=== PATIENT | male | born 1975 | race Caucasian/White ===

== ENCOUNTER 2016-12-08 16:25 | Inpatient (IN) | payer OTHER ==
[2016-12-08 16:25] VITALS: BMI 22.4
--- NOTE | 2016-12-08 17:20 | ED PDOC ---
Arrival/HPI - General Chief Complaint: Abdominal Pain Time Seen by Provider: 12/08/16 16:27 Historian: Patient - History of Present Illness Narrative History of Present Illness (Text): 12/08/16 17:16 A 41 year old male, whose past medical history includes diabetes, hepatitis c, pancreatitis, appendectomy and cholecystectomy, presents to the emergency department complaining of right upper abdominal pain radiating to right side of chest for the past 3 days. Patient reports he has been seen in the ER multiple times for the same abdominal pain, however, has been radiating to right lower chest. Patient states his pain is exacerbated when eating and with certain movements.. He reports his abdominal pain began after his cholecystectomy and has not followed up with a GI specialist since. Patient notes nausea and non- bilious non-bloody vomiting but denies any fever, chills, diarrhea, urinary symptoms, shortness of breath, cough or any other complaints. PMD: Dr. Awad 12/08/16 21:40 Time/Duration: Other (3 days) Symptom Course: Unchanged Quality: Other Context: Other Past Medical History - Provider Review Nursing Documentation Reviewed: Yes - Infectious Disease Hx of Infectious Diseases: None - Tetanus Immunization Tetanus Immunization: Unknown - Cardiac Hx Hypertension: Yes - Pulmonary Hx Respiratory Disorders: No - Neurological Hx Neurological Disorder: No - HEENT Hx HEENT Disorder: No - Renal Hx Renal Disorder: No - Endocrine/Metabolic Hx Diabetes Mellitus Type 2: Yes - Hematological/Oncological Hx Blood Disorders: Yes Hx Hepatitis C: Yes - Integumentary Hx Dermatological Disorder: No - Musculoskeletal/Rheumatological Hx Musculoskeletal Disorders: No - Gastrointestinal Hx Gastrointestinal Disorders: Yes Hx Pancreatitis: Yes - Genitourinary/Gynecological Hx Genitourinary Disorders: No - Psychiatric Hx Psychophysiologic Disorder: No Hx Substance Use: No - Surgical History Hx Appendectomy: Yes Hx Cholecystectomy: Yes - Anesthesia Hx Anesthesia: Yes - Suicidal Assessment Feels Threatened In Home Enviroment: No Family/Social History - Physician Review Nursing Documentation Reviewed: Yes Family/Social History: CAD/NH Smoking Status: Current Some Days Smoker Hx Alcohol Use: No Hx Substance Use: No Hx Substance Use Treatment: No Allergies/Home Meds Allergies/Adverse Reactions: Allergies dy Allergy (Mild, Uncoded 12/08/16 16:30) ITCHING hair color dye Allergy (Uncoded 12/08/16 16:30) RASH Home Medications: Home Meds Medication Instructions Recorded Confirmed Gemfibrozil [Lopid] 600 mg PO BID 01/26/16 12/08/16 Insulin Aspart/Insulin Aspar 20 unit SC BID 12/08/16 12/08/16 [Novolog Mix 70/30 (70/30 units/ml)] Review of Systems - Review of Systems Constitutional: Fatigue. absent: Fevers Eyes: absent: Photophobia ENT: absent: Hearing Changes Respiratory: absent: SOB, Cough Cardiovascular: Chest Pain. absent: Palpitations, Calf Pain, ANGUIANO Gastrointestinal: Abdominal Pain (Right upper abdominal pain radiating to right side of chest), Nausea, Vomiting. absent: Diarrhea Genitourinary Male: absent: Dysuria, Frequency, Hematuria, Urinary Output Changes Musculoskeletal: absent: Back Pain Skin: absent: Rash Neurological: absent: Headache, Dizziness, Focal Weakness Psychiatric: absent: Anxiety, Depression Physical Exam - Physical Exam Narrative Physical Exam (Text): Head: Atraumatic. Normocephalic. Eyes: PERRL. EOMI. Conjunctivae are not pale. ENT: Mucous membranes are dry. Oropharynx is clear and symmetric. Neck: Supple. Full ROM. No JVD. No lymphadenopathy. Cardiovascular: Bradycardic. No murmurs, rubs, or gallops. Distal pulses are 2+ and symmetric. Pulmonary/Chest: No evidence of respiratory distress. Clear to auscultation bilaterally. No wheezing, rales or rhonchi. Palpable anterior chest wall pain. Abdominal: Soft and non-distended. Right upper quadrant tenderness and epigastric pain to palpation. Multiple surgical scars noted. No rebound, guarding, or rigidity. No organomegaly. Good bowel sounds. No pulsatile masses. Back: No CVA tenderness. Palpable mid back pain with no erythema or edema. Extremities: No edema. No cyanosis. No clubbing. Full range of motion in all extremities. No calf tenderness. Skin: Skin is warm and dry. No petechiae. No purpura. Neurological: Alert, awake, and oriented to person, place, time, and situation. Normal speech. Motor and sensory exam intact. Psychiatric: Good eye contact. Normal interaction, affect, and behavior. Vital Signs Reviewed: Yes Vital Signs Temp Pulse Resp BP Pulse Ox 12/08/16 19:10 62 18 138/71 98 12/08/16 17:36 64 18 144/79 98 12/08/16 16:50 97.7 F 68 18 146/82 98 12/08/16 16:33 97.7 F 68 20 146/82 98 Temperature: Afebrile Blood Pressure: Normal Pulse: Bradycardic Respiratory Rate: Normal Appearance: Positive for: Well-Appearing, Non-Toxic, Uncomfortable Pain Distress: Moderate Mental Status: Positive for: Alert and Oriented X 3 Medical Decision Making ED Course and Treatment: 12/08/16 17:16 Impression: A 41 year old male with right upper abdominal pain radiating to right side of chest. Patient notes nausea and non-bilious non-bloody vomiting. RUQ tenderness on exam. There is chest wall tenderness as well which I feel is related to his pain with deep breaths. No hypoxia, no calf pain. Differential Diagnosis included but are not limited to: Acute pancreatitis, muscular chest and back pain Plan: -- Abdomen and Pelvis CT -- Chest xray -- EKG -- Labs -- Urinalysis -- Pepcid, IV fluids, Morphine and Zofran -- Reassess and disposition Prior Visits: Notes and results from previous visits were reviewed. Patient last seen and discharged from ED on 10/26/16 for abdominal pain. Progress Notes: Patient with history of intermittent pain "since gallbladder surgery". He has not had follow-up with GI or his surgeon over past 3 months. Prior records reviewed. As pain persistent, iv pain medication and zofran ordered as well as CT. He reports possible allergy to iv dye. Although he is diabetic, his has no chest pain or sob with exertion. Bradycardia noted but has has prior history of this and no symptomatic hypotension noted. NO melena or gi bleeding noted. Report Date : 12/08/2016 18:45:37 PROCEDURE: CT Abdomen and Pelvis without intravenous contrast Dictator : HAILEY PIERSON MD IMPRESSION: 1. Findings are consistent with acute pancreatitis predominantly involving the head of the pancreas. 2.8 x 2.8 cm cystic lesion in the body of the pancreas is most compatible with a pseudocyst. The tail of the pancreas is atrophic. 2. Mild hepatosplenomegaly and extensive gastric, perisplenic and splenorenal varices. Findings could be related to portal/splenic vein thrombosis. CT scan of the abdomen with intravenous contrast (portal venous phase)/duplex Doppler ultrasound would be helpful for further evaluation. 3. 4 mm nonobstructing stone in the upper pole of the left kidney. Report Date : 12/08/2016 18:53:14 Procedure: Chest xray Dictator : Teresa Hernandez MD IMPRESSION: No focal consolidation, significant pleural effusion, or definite pneumothorax identified. 12/08/16 20:22 On re-evaluation, patient continues to complain of persistent pain in episgastric region and nausea. Additional pain medication and antiemetics orered. Plan is to admit for acute pancreatitis as per CT findings. Case discussed with house doctor, who accepts admission. He has had prior EKGs reviewed which revealed history of bradycardia in past. No chest pain or shortness of breath with exertion. Hyperglycemia noted, iv fluids given. Current exam not consistent with DKA. - Lab Interpretations Lab Results: 12/08/16 18:01 12/08/16 18:55 Lab Results 12/08/16 18:55: Sodium 132, Potassium 4.2, Chloride 100, Carbon Dioxide 25, Anion Gap 11, BUN 9, Creatinine 0.6, Est GFR ( Amer) > 60, Est GFR (Non- Af Amer) > 60, Random Glucose 292 H, Calcium 8.5, Magnesium 1.8, Total Bilirubin 1.1, AST 26, ALT 24, Alkaline Phosphatase 69, Lactate Dehydrogenase 625, Total Creatine Kinase 165, Troponin I < 0.01, Total Protein 7.6, Albumin 3.6, Globulin 3.9, Albumin/Globulin Ratio 0.9 L, Amylase 55, Lipase 122 12/08/16 18:01: WBC 8.5 D, RBC 5.49, Hgb 14.8, Hct 40.7 L, MCV 74.1 L, MCH 27.0 , MCHC 36.4, RDW 15.6 H, Plt Count 181, MPV 10.8, Gran % 72.2 H, Lymph % (Auto) 20.7 L, [place] % (Auto) 6.0, Eos % (Auto) 0.6 L, Baso % (Auto) 0.5, Gran # 6.17, Lymph # 1.8, [place] # 0.5, Eos # 0.1, Baso # 0.04, PT 11.0, INR 1.02, APTT 30.1, Urine Color Straw, Urine Appearance Clear, Urine pH 6.0, Ur Specific [place] <= 1.005, Urine Protein Negative, Urine Glucose (UA) >=1000, Urine Ketones Negative , Urine Blood Negative, Urine Nitrate Negative, Urine Bilirubin Negative, Urine Urobilinogen 0.2, Ur Leukocyte Esterase Negative - RAD Interpretation Narrative RAD Interpretations (Text): 12/08/16 21:34 cxr no pneumothorax or infiltrate noted Radiology Orders: 12/08/16 17:23 CHEST ONE VIEW [RAD] Stat 12/08/16 17:25 ABD & PELVIS W/O PO OR IV CONT [CT] Stat Tentering Machine Feeder: ED Physician - EKG Interpretation EKG Interpretation (Text): 12/08/16 21:33 EKG at 17:30 sinus bradycardia rate of [address] elevations Interpreted by ED Physician: Yes Type: 12 lead EKG - Medication Orders Current Medication Orders: Discontinued Medications Famotidine (Pepcid) 20 mg IVP STAT STA Stop: 12/08/16 17:27 Last Admin: 12/08/16 18:03 Dose: 20 MG IVP Administration Document 12/08/16 18:03 OCS (Rec: 12/08/16 18:03 [id number]) Charges for Administration # of IVP Administrations 1 Sodium Chloride (Sodium Chloride 0.9%) 1,000 mls @ 1,000 mls/hr IV .Q1H STA Stop: 12/08/16 18:25 Last Admin: 12/08/16 18:03 Dose: 1,000 MLS/HR eMAR Start Stop Document 12/08/16 18:03 OCS (Rec: 12/08/16 18:03 [id number]) Intravenous Solution Start Date 12/08/16 Start Time 18:03 Morphine Sulfate (Morphine) 2 mg IVP STAT STA Stop: 12/08/16 19:06 Last Admin: 12/08/16 19:44 Dose: 2 MG MAR Pain Assessment Document 12/08/16 19:44 OCS (Rec: 12/08/16 19:45 [id number]) Pain Reassessment Is this a pain reassessment? Yes Sleep Is patient sleeping during reassessment? No Presence of Pain Presence of Pain Yes Pain Scale Used Pain Scale Used Numeric Location Left, Right or Bilateral Right Upper or Lower Upper Pain Location Body Site Abdomen Description Description Constant Intensity of Pain at present 10 Pain Behavior Rubbing Site Aggravating Factors ADL's IVP Administration Document 12/08/16 19:44 OCS (Rec: 12/08/16 19:45 OCS [id number]) Charges for Administration # of IVP Administrations 1 Ondansetron HCl (Zofran Inj) 4 mg IVP ONCE ONE Stop: 12/08/16 17:27 Last Admin: 12/08/16 18:04 Dose: 4 MG IVP Administration Document 12/08/16 18:04 OCS (Rec: 12/08/16 18:04 OCS [id number]) Charges for Administration # of IVP Administrations 1 Ondansetron HCl (Zofran Inj) 4 mg IVP ONCE ONE Stop: 12/08/16 20:23 Last Admin: 12/08/16 20:31 Dose: 4 MG IVP Administration Document 12/08/16 20:31 OCS (Rec: 12/08/16 20:32 OCS [id number]) Charges for Administration # of IVP Administrations 1 - Scribe Statement The provider has reviewed the documentation as recorded by the Jeny Martinez Provider Scribe Attestation: All medical record entries made by the Scribe were at my direction and personally dictated by me. I have reviewed the chart and agree that the record accurately reflects my personal performance of the history, physical exam, medical decision making, and the department course for this patient. I have also personally directed, reviewed, and agree with the discharge instructions and disposition. Disposition/Present on Arrival - Present on Arrival Any Indicators Present on Arrival: No History of DVT/PE: No History of Uncontrolled Diabetes: Yes Urinary Catheter: No History of Decub. Ulcer: No History Surgical Site Infection Following: None - Disposition Have Diagnosis and Disposition been Completed?: Yes Diagnosis: Pancreatitis, Abdominal pain, Hyperglycemia Disposition: HOSPITALIZED Disposition Time: 20:22 Patient Plan: Admission Patient Problems: Current Active Problems Problem Status Diagnosed ACS (acute coronary syndrome) Acute Abdominal pain Acute Anemia Acute Chest pain Acute Hyperglycemia Acute Pancreatitis Acute Thrombocytopenia Acute Condition: FAIR
[2016-12-08] MEDS ORDERED: Sodium Chloride 0.9% 1,000 ML IV STA (17:26)
[2016-12-08 18:02] LABS: ADD MANUAL DIFF? NO
[2016-12-08 18:16] LABS: BASO # 0.04 [, K/mm3] (0.0-2.0); BASO % 0.5 % (0.0-3.0); EOS # 0.1 (0.0-0.7); EOS % 0.6 % (1.5-5.0); GRAN # 6.17 (1.4-6.5); GRAN % 72.2 % (50.0-68.0); HEMATOCRIT 40.7 % (42.0-52.0); LYMPH # 1.8 (1.2-3.4); LYMPH % 20.7 % (22.0-35.0); MEAN CELL VOLUME 74.1 fL (80.0-105.0); MEAN CORPUSCULAR HGB CONC 36.4 g/dl (31.0-37.0); MEAN PLATELET VOLUME 10.8 fl (7.0-11.0); MONO # 0.5 (0.1-0.6); PLATELET COUNT 181 [, 10^3/uL] (120.0-450.0); RED CELL DISTRIBUTION WIDTH 15.6 % (11.5-14.5); WHITE BLOOD COUNT 8.5 [, 10^3/ul] (4.5-11.0)
[2016-12-08 18:23] LABS: INR 1.02 (0.93-1.08); PARTIAL THROMBOPLASTIN TIME 30.1 Seconds (23.7-30.8)
[2016-12-08 18:25] LABS: URINE APPEARANCE CLEAR (CLEAR); URINE BILIRUBIN NEGATIVE (NEGATIVE); URINE BLOOD NEGATIVE (NEGATIVE); URINE COLOR STRAW (YELLOW); URINE GLUCOSE (UA) >=1000 mg/dL (NEGATIVE); URINE KETONE NEGATIVE (NEGATIVE); URINE LEUKOCYTE ESTERASE NEGATIVE Leu/uL (NEGATIVE); URINE PROTEIN NEGATIVE mg/dL (<30 mg/dL); URINE UROBILINOGEN 0.2 E.U./dL (<1 E.U./dL)
--- NOTE | 2016-12-08 18:47 | CT ---
PROCEDURE: CT Abdomen and Pelvis without intravenous contrast HISTORY: diffuse upper abdominal pain, post op, dye allergy COMPARISON: None. TECHNIQUE: Multidetector CT scan of the abdomen and pelvis was performed without administration of intravenous contrast. Oral contrast was not administered. Coronal and sagittal reformatted images were obtained. Radiation dose: Total exam DLP = 564.05 mGy-cm. FINDINGS: LOWER THORAX: The visualized right lung is clear. There is left basilar atelectasis. LIVER: There is mild hepatomegaly. There is no intrahepatic biliary ductal dilatation GALLBLADDER AND BILE DUCTS: The gallbladder is surgically absent. PANCREAS: There is enlargement of the head of the pancreas and peripancreatic inflammatory changes with fat stranding. There is also inflammatory fat stranding extending into the superior retroperitoneum. There is a 2.8 x 2.8 cm low-attenuation lesion in the body of the pancreas. The tail of the pancreas is not well visualized. SPLEEN: The spleen is enlarged and measures 14 cm. ADRENALS: Both adrenal glands are normal in size. There is no discrete nodule. KIDNEYS AND URETERS: Both kidneys are normal in size without hydronephrosis. There is a 4 mm nonobstructing stone in the upper pole of the left kidney. There is no right nephrolithiasis. VASCULATURE: The aorta is normal in caliber. There are extensive gastric, perisplenic and splenorenal varices. BOWEL: The small bowel loops are normal in caliber. There is moderate amount of stool scattered throughout the colon. APPENDIX: Not distinctly identified. No inflammatory changes in the right lower quadrant. PERITONEUM: No free fluid. No free air. LYMPH NODES: No enlarged lymph nodes. BLADDER: Unremarkable. REPRODUCTIVE: Unremarkable. BONES: There is moderate degenerative disc disease at L4-5 and L5-S1. No destructive bony lesions. Focal areas of sclerosis in the right proximal femur are statistically most compatible with bone islands P OTHER FINDINGS: None. IMPRESSION: 1. Findings are consistent with acute pancreatitis predominantly involving the head of the pancreas. 2.8 x 2.8 cm cystic lesion in the body of the pancreas is most compatible with a pseudocyst. The tail of the pancreas is atrophic. 2. Mild hepatosplenomegaly and extensive gastric, perisplenic and splenorenal varices. Findings could be related to portal/splenic vein thrombosis. CT scan of the abdomen with intravenous contrast (portal venous phase)/duplex Doppler ultrasound would be helpful for further evaluation. 3. 4 mm nonobstructing stone in the upper pole of the left kidney.
--- NOTE | 2016-12-08 18:54 | RAD ---
HISTORY: chest pain COMPARISON: Chest x-ray performed 10/28/15 TECHNIQUE: Chest, one view. FINDINGS: LUNGS: No focal consolidation. Please note that chest x-ray has limited sensitivity for the detection of pulmonary masses. PLEURA: No significant pleural effusion identified. No definite pneumothorax . CARDIOVASCULAR: Heart size appears within normal limits. OSSEOUS STRUCTURES: No acute osseous abnormality identified. VISUALIZED UPPER ABDOMEN: Unremarkable. OTHER FINDINGS: None. IMPRESSION: No focal consolidation, significant pleural effusion, or definite pneumothorax identified.
[2016-12-08] MEDS ORDERED: Morphine 2 mg/ml ISec IVP STA (19:05)
[2016-12-08 19:15] LABS: ALB/GLOB RATIO 0.9 (1.1-1.8); ALKALINE PHOSPHATASE 69 U/L (38-133); ALT/SGPT 24 U/L (7-56); AMYLASE 55 U/L (35-125); AST/SGOT 26 U/L (15-59); BILIRUBIN,TOTAL 1.1 mg/dL (0.2-1.3); BLOOD UREA NITROGEN 9 mg/dL (7-21); CALCIUM 8.5 mg/dL (8.4-10.5); CARBON DIOXIDE 25 mmol/L (21-33); CHLORIDE 100 mmol/L (98-107); GFR AFRICAN-AMERICAN > 60; LIPASE 122 U/L (23-300); MAGNESIUM 1.8 mg/dL (1.7-2.2); POTASSIUM 4.2 mmol/L (3.6-5.0); SODIUM 132 mmol/L (132-148); TOTAL PROTEIN 7.6 g/dL (5.8-8.3)
[2016-12-08 19:17] LABS: GLUCOSE,RANDOM 292 mg/dL (70-110)
[2016-12-08 19:27] LABS: TROPONIN I < 0.01 ng/mL
--- NOTE | 2016-12-08 20:21 | CP.PCM.HP ---
<Mildred Carlton - Last Filed: 12/08/16 22:48> History of Present Illness - History of Present Illness History of Present Illness: PGY-[address] Guzman Admission: RUQ abdominal pain, Acute pancreatitis 40 year old man of [place] origin, whose PMH includes Dm2, hepatitis c, pancreatitis, appendectomy and cholecystectomy, presents to the emergency department complaining of right upper abdominal pain radiating to right side of chest for the past 3 days. Patient reports he has been seen in the ER multiple times for the same abdominal pain, however, has not felt this chest pain before. Patient states his pain is sharp, worsened during inhalation. Abdominal pain is chronic, began after his cholecystectomy and has not followed up with a GI specialist since. In the ED, VSS. Microcytic anemia at 14.8. WBC 8.5. Glucose 292. LFT, lypase, amylase all normal. U/A negative. He received Pepcid, morphine, zofran were given. CXR showed negative for focal consolidation, significant pleural effusion, or definite pneumothorax. CT abdomen and pelvis showed (1) Acute pancreatitis predominantly involving the head of the pancreas. 2.8 x 2.8 cm cystic lesion in the body of the pancreas is most compatible with a pseudocyst. The tail of the pancreas is atrophic. (2) Mild hepatosplenomegaly and extensive gastric, perisplenic and splenorenal varices. Findings could be related to portal/splenic vein thrombosis. CT scan of the abdomen with intravenous contrast (portal venous phase)/duplex Doppler ultrasound would be helpful for further evaluation. (3) 4 mm nonobstructing stone in the upper pole of the left kidney. ROS - Patient notes nausea and non-bilious non-bloody vomiting but denies any fever, chills, diarrhea, shortness of breath, cough. (+) constipation with blood streaks on tissue when wipe. (+) numbness in distal UE/LE b/l. (+) buring during urination PMH: [facility], s/p open jas. Then contracted hep C. Later developed DM. In 2013 first diagnosed with diabetes. Pancreatitis.-Had been admitted 60-70 times for pancratitis in past 9 years. DM 2 Hepatitis C. Pancreatic cyst-Diagnosed in 2013. PUD PSH: Surgery for pancreatic cyst s/p burst cyst during EGD procedure - 2015, [facility] Appendectomy for ruptured appendix -2008, [place] Cholecystectomy FH: CAD/NV before age 55 - dad and several male relatives Mom - bone cancer SH: Current Smoking- Attempted to Quit in December of 2014.Smoked 10 Cig./day for 2 years. Denies ETOH. Denies drugs. Lives in an apartment in [place] with mother is single has no children. Worked in [employer]. Currently does not work. All Dye Meds: MAR PMD = Dr. Awad Surgeon = Dr. Herbert Jimenez, [facility], . Present on Admission - Present on Admission Any Indicators Present on Admission: Yes History of Uncontrolled Diabetes: Yes Past Patient History - Infectious Disease Hx of Infectious Diseases: None - Tetanus Immunizations Tetanus Immunization: Unknown - Past Medical History & Family History Past Medical History?: Yes - Past Social History Smoking Status: Current Some Days Smoker - CARDIAC Hx Hypertension: Yes - PULMONARY Hx Respiratory Disorders: No - NEUROLOGICAL Hx Neurological Disorder: No - HEENT Hx HEENT Problems: No - RENAL Hx Chronic Kidney Disease: No - ENDOCRINE/METABOLIC Hx Diabetes Mellitus Type 2: Yes - HEMATOLOGICAL/ONCOLOGICAL Hx Blood Disorders: Yes Hx Hepatitis C: Yes - INTEGUMENTARY Hx Dermatological Problems: No - MUSCULOSKELETAL/RHEUMATOLOGICAL Hx Musculoskeletal Disorders: No - GASTROINTESTINAL Hx Gastrointestinal Disorders: Yes Hx Pancreatitis: Yes - GENITOURINARY/GYNECOLOGICAL Hx Genitourinary Disorders: No - PSYCHIATRIC Hx Psychophysiologic Disorder: No Hx Substance Use: No - SURGICAL HISTORY Hx Appendectomy: Yes Hx Cholecystectomy: Yes - ANESTHESIA Hx Anesthesia: Yes Meds Allergies/Adverse Reactions: Allergies Allergy/AdvReac Type Severity Reaction Status Date / Time dy Allergy Mild ITCHING Uncoded 12/08/16 16:30 hair color dye Allergy RASH Uncoded 12/08/16 16:30 Physical Exam - Constitutional Appears: No Acute Distress - Head Exam Head Exam: ATRAUMATIC, NORMOCEPHALIC - Eye Exam Eye Exam: EOMI, Normal appearance. absent: Scleral icterus Pupil Exam: NORMAL ACCOMODATION - ENT Exam ENT Exam: Mucous Membranes Moist - Neck Exam Neck exam: Positive for: Normal Inspection. Negative for: Lymphadenopathy, Meningismus Additional comments: supple, no JVD - Respiratory Exam Respiratory Exam: Decreased Breath Sounds (RLL), Clear to Auscultation Bilateral , Rales (RLL), NORMAL BREATHING PATTERN. absent: Rhonchi, Wheezes - Cardiovascular Exam Cardiovascular Exam: REGULAR RHYTHM, +S1, +S2. absent: Systolic Murmur - GI/Abdominal Exam GI & Abdominal Exam: Guarding (On deep palpation), Normal Bowel Sounds, Soft, Tenderness (RUQ, chronic; RLQ. ). absent: Distended, Rigid Additional comments: 3 scars healing well - Extremities Exam Extremities exam: Positive for: normal capillary refill, pedal pulses present. Negative for: calf tenderness, pedal edema - Back Exam Back exam: absent: CVA tenderness (L), CVA tenderness (R) - Neurological Exam Neurological exam: Alert, Oriented x3 - Psychiatric Exam Psychiatric exam: Normal Affect, Normal Mood - Skin Skin Exam: Dry, Warm Results - Vital Signs Recent Vital Signs: Last Vital Signs Temp 97.7 F 12/08/16 16:50 Pulse 62 12/08/16 19:10 Resp 18 12/08/16 19:10 BP 138/71 12/08/16 19:10 Pulse Ox 98 12/08/16 19:10 - Labs Result Diagrams: 12/08/16 18:01 12/08/16 18:55 Labs: Laboratory Results - last 24 hr 12/08/16 12/08/16 18:01 18:55 WBC 8.5 D RBC 5.49 Hgb 14.8 Hct 40.7 L MCV 74.1 L MCH 27.0 MCHC 36.4 RDW 15.6 H Plt Count 181 MPV 10.8 Gran % 72.2 H Lymph % (Auto) 20.7 L [place] % (Auto) 6.0 Eos % (Auto) 0.6 L Baso % (Auto) 0.5 Gran # 6.17 Lymph # 1.8 [place] # 0.5 Eos # 0.1 Baso # 0.04 PT 11.0 INR 1.02 APTT 30.1 Sodium 132 Potassium 4.2 Chloride 100 Carbon Dioxide 25 Anion Gap 11 BUN 9 Creatinine 0.6 Est GFR ( Amer) > 60 Est GFR (Non-Af Amer) > 60 Random Glucose 292 H Calcium 8.5 Magnesium 1.8 Total Bilirubin 1.1 AST 26 ALT 24 Alkaline Phosphatase 69 Lactate Dehydrogenase 625 Total Creatine Kinase 165 Troponin I < 0.01 Total Protein 7.6 Albumin 3.6 Globulin 3.9 Albumin/Globulin Ratio 0.9 L Amylase 55 Lipase 122 Urine Color Straw Urine Appearance Clear Urine pH 6.0 Ur Specific [place] <= 1.005 Urine Protein Negative Urine Glucose (UA) >=1000 Urine Ketones Negative Urine Blood Negative Urine Nitrate Negative Urine Bilirubin Negative Urine Urobilinogen 0.2 Ur Leukocyte Esterase Negative Assessment & Plan - Assessment and Plan (Free Text) Plan: 40 year old man of [place] origin, whose Family history of NV before age 55, whose PMH includes Dm2, hepatitis c, pancreatitis, appendectomy and cholecystectomy, admitted for retractable N/V, RUQ abdominal pain with dyspneic chest pain on R, and acute pancreatitis Atpical chest pain Bradycardia - resolved - likely from diaphragm irritation from acute pancreatitis - EKG showed bradycardia at 47, no specific ST changes or TWI. 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 Microcytic anemia - stable - varices on CT - occult blood Diabetes IDDM-2 Diabeteic neuropathy - A1C - ISSS - home Novolog 70/30 BID Constipation - miralax bid Prophylaxis - Lovenox, protonix S/R/D/w Dr. Guzman - Date & Time Date: 12/08/16 Time: 21:20 <Josey Guzman - Last Filed: 12/09/16 00:21> Results - Vital Signs Recent Vital Signs: Last Vital Signs Temp 97.7 F 12/08/16 16:50 Pulse 62 12/08/16 19:10 Resp 18 12/08/16 19:10 BP 138/71 12/08/16 19:10 Pulse Ox 98 12/08/16 19:10 - Labs Result Diagrams: 12/08/16 18:01 12/08/16 18:55 Attending/Attestation - Attestation I have personally seen and examined this patient.: Yes I have fully participated in the care of the patient.: Yes I have reviewed all pertinent clinical information: Yes Notes (Text): 12/09/16 00:20 Patient was seen when patient was in bed # [address]Katherine Carlton. Agree with history , physical examination, assessment and plan.
[2016-12-08] MEDS ORDERED: Sodium Chloride 0.9% 1,000 ML IV SCH (22:45)
[2016-12-08] MEDS ORDERED: POLYETHYLENE GLYCOL 3350 17 GM/Dose PACKET PO STA (22:47)
[2016-12-08] MEDS: Insulin Human NPH/Reg 70/30 Vial(3 ml) SC SCH (22:51)
[2016-12-09] MEDS: Morphine 2 mg/ml ISec IVP PRN ×5 (00:05→23:40)
[2016-12-09 00:50] LABS: TROPONIN I < 0.01 ng/mL
[2016-12-09] MEDS: Sodium Chloride 0.9% 1,000 ML IV SCH ×3 (03:30→22:47)
[2016-12-09] MEDS: Insulin Lispro (humaLOG) MEDIUM Coverage SC SCH ×4 (08:23→22:27)
[2016-12-09] MEDS: Amylase/Lipase/Protease 5,000 U ECC PO SCH ×4 (08:25→16:44)
[2016-12-09 09:07] LABS: ADD MANUAL DIFF? NO
--- NOTE | 2016-12-09 09:08 | US ---
PROCEDURE: Portal vein duplex ultrasound. CLINICAL HISTORY: Abnormal liver function tests Evaluate for portal vein thrombosis. PHYSICIAN(S): Corbin Oates M.D. FINDINGS: The extrahepatic portal vein is patent with hepatopetal flow. No sonographic evidence for thrombus or obstruction is seen. The 3 hepatic veins are visualized centrally and patent. The hepatic artery is patent. The hepatic parenchyma is homogeneous in echotexture. The spleen is normal in size. No ascites is appreciated in the upper abdomen. IMPRESSION: 1. Patent portal vein with hepatopetal flow.
[2016-12-09 09:25] LABS: BASO # 0.03 [, K/mm3] (0.0-2.0); BASO % 0.4 % (0.0-3.0); EOS # 0.1 (0.0-0.7); GRAN # 4.61 (1.4-6.5); GRAN % 66.6 % (50.0-68.0); HEMATOCRIT 36.6 % (42.0-52.0); LYMPH # 1.9 (1.2-3.4); LYMPH % 26.8 % (22.0-35.0); MEAN CELL VOLUME 74.5 fL (80.0-105.0); MEAN CORPUSCULAR HEMOGLOBIN 25.9 pg (25.0-35.0); MEAN CORPUSCULAR HGB CONC 34.7 g/dl (31.0-37.0); MEAN PLATELET VOLUME 10.9 fl (7.0-11.0); MONO # 0.4 (0.1-0.6); MONO % 5.2 % (1.0-6.0); PLATELET COUNT 139 [, 10^3/uL] (120.0-450.0); RED CELL DISTRIBUTION WIDTH 15.8 % (11.5-14.5); WHITE BLOOD COUNT 6.9 [, 10^3/ul] (4.5-11.0)
[2016-12-09 09:34] LABS: ALKALINE PHOSPHATASE 70 U/L (38-133); ALT/SGPT 25 U/L (7-56); AMYLASE 51 U/L (35-125); AST/SGOT 20 U/L (15-59); BILIRUBIN,TOTAL 0.9 mg/dL (0.2-1.3); BLOOD UREA NITROGEN 9 mg/dL (7-21); CALCIUM 8.4 mg/dL (8.4-10.5); CARBON DIOXIDE 24 mmol/L (21-33); CHLORIDE 101 mmol/L (98-107); CHOLESTEROL 215 mg/dL (130-200); GFR AFRICAN-AMERICAN > 60; GLUCOSE,RANDOM 220 mg/dL (70-110); LIPASE 77 U/L (23-300); POTASSIUM 3.7 mmol/L (3.6-5.0); SODIUM 134 mmol/L (132-148); TOTAL PROTEIN 7.1 g/dL (5.8-8.3)
[2016-12-09 09:46] LABS: TROPONIN I < 0.01 ng/mL
[2016-12-09] MEDS: Insulin Human NPH/Reg 70/30 Vial(3 ml) SC SCH ×2 (11:03→18:56)
--- NOTE | 2016-12-09 12:52 | CP.PCM.CON ---
History of Present Illness - History of Present Illness History of Present Illness: CC: Abdominal pain HPI: 40 year old man with h/o DM, HCV, Chronic pancreatitis who presents with abdominal pain. He reports this exacerbation of pain started about 3 days ago. He reports constant severe upper abdominal pain radiating to RUQ and LUQ, which is similar to prior episodes of pain related to pancreatitis. He says he had a few episodes of associated nausea and vomiting. he denies alcohol abuse. He does smoke a few cigarettes a day. He reports recent h/o cholecystectomy and EUS /FNA of pancreas cyst at [facility] 5-6 months ago. he was told cyst is benign. Pain is sharp in quality. No rectal bleeding. No chest pain or sob. No fever. He does note constipation. PMHx: DM, HCV, Chronic pancreatitis, Pseudocyst, H/o PUD PSHx: Appendectomy, Cholecystectomy, EUS FNA of Pancreas cyst FHx: No family history of pancreatitis/malignancy SHx: Current Smoker. Denies ETOH or drugs. ROS: A comprehensive review of systems was performed and was negative apart from HPI Past Patient History - Infectious Disease Hx of Infectious Diseases: None - Tetanus Immunizations Tetanus Immunization: Unknown - Past Medical History & Family History Past Medical History?: Yes - Past Social History Smoking Status: Light Smoker < 10 Cigarettes Daily - CARDIAC Hx Cardiac Disorders: Yes Hx Hypertension: Yes - PULMONARY Hx Respiratory Disorders: No - NEUROLOGICAL Hx Neurological Disorder: No - HEENT Hx HEENT Problems: No - RENAL Hx Chronic Kidney Disease: No - ENDOCRINE/METABOLIC Hx Endocrine Disorders: Yes Hx Diabetes Mellitus Type 2: Yes - HEMATOLOGICAL/ONCOLOGICAL Hx Blood Disorders: Yes Hx Hepatitis C: Yes - INTEGUMENTARY Hx Dermatological Problems: No - MUSCULOSKELETAL/RHEUMATOLOGICAL Hx Falls: No - GASTROINTESTINAL Hx Gastrointestinal Disorders: Yes Hx Pancreatitis: Yes - GENITOURINARY/GYNECOLOGICAL Hx Genitourinary Disorders: No - PSYCHIATRIC Hx Substance Use: No - SURGICAL HISTORY Hx Appendectomy: Yes Hx Cholecystectomy: Yes - ANESTHESIA Hx Anesthesia: Yes Meds Allergies/Adverse Reactions: Allergies Allergy/AdvReac Type Severity Reaction Status Date / Time dy Allergy Mild ITCHING Uncoded 12/08/16 16:30 hair color dye Allergy RASH Uncoded 12/08/16 16:30 - Medications Medications: Current Medications Amylase (Pancrease 34904 U-5000 U-57640 U) 25,000 u PO [facility] Last Admin: 12/09/16 11:03 Dose: Not Given Gemfibrozil (Lopid) 600 mg PO BID [facility] Last Admin: 12/09/16 11:12 Dose: 600 mg Sodium Chloride (Sodium Chloride 0.9%) 1,000 mls @ 150 mls/hr IV .Q6H40M [facility] Last Admin: 12/09/16 03:30 Dose: 150 mls/hr Influenza Virus Vaccine (Fluvirin) 45 mcg IM .ONCE ONE Stop: 12/11/16 10:01 Insulin Human Lispro (Humalog Med) 0 units SC ACHS [facility] PRN Reason: Protocol Last Admin: 12/09/16 12:05 Dose: 3 units Morphine Sulfate (Morphine) 1 mg IVP Q4 PRN PRN Reason: Pain, moderate (4-7) Last Admin: 12/09/16 11:04 Dose: 1 mg Ondansetron HCl (Zofran Inj) 4 mg IVP Q6 PRN PRN Reason: Nausea/Vomiting Pantoprazole Sodium (Protonix Inj) 40 mg IVP DAILY [facility] Last Admin: 12/09/16 10:57 Dose: 40 mg Pneumococcal Polyvalent Vaccine (Pneumovax 23 Vaccine) 0.5 ml IM .ONCE ONE Stop: 12/11/16 10:01 Physical Exam - Constitutional Appears: No Acute Distress, Chronically Ill - Head Exam Head Exam: ATRAUMATIC, NORMOCEPHALIC - Eye Exam Eye Exam: Normal appearance. absent: Scleral icterus - ENT Exam ENT Exam: Mucous Membranes Moist, Normal Oropharynx - Neck Exam Neck exam: Negative for: Lymphadenopathy, Thyromegaly - Respiratory Exam Respiratory Exam: NORMAL BREATHING PATTERN. absent: Rales, Wheezes, Respiratory Distress - Cardiovascular Exam Cardiovascular Exam: REGULAR RHYTHM, +S1, +S2 - GI/Abdominal Exam GI & Abdominal Exam: Soft, Tenderness. absent: Distended, Firm, Guarding - Extremities Exam Extremities exam: Positive for: normal capillary refill. Negative for: pedal edema - Neurological Exam Neurological exam: Alert, Oriented x3 - Psychiatric Exam Psychiatric exam: Flat Affect, Normal Mood - Skin Skin Exam: Dry, Normal Color, Warm Results - Vital Signs Recent Vital Signs: Last Vital Signs Temp 98 F 12/09/16 07:52 Pulse 59 L 12/09/16 07:52 Resp 20 12/09/16 07:52 BP 126/83 12/09/16 07:52 Pulse Ox 98 12/09/16 07:52 - Labs Result Diagrams: 12/09/16 05:00 12/09/16 05:00 Labs: Laboratory Results - last 24 hr 12/09/16 12/09/16 12/09/16 00:10 05:00 07:30 WBC 6.9 RBC 4.91 Hgb 12.7 L Hct 36.6 L MCV 74.5 L MCH 25.9 MCHC 34.7 RDW 15.8 H Plt Count 139 MPV 10.9 Gran % 66.6 Lymph % (Auto) 26.8 [place] % (Auto) 5.2 Eos % (Auto) 1.0 L Baso % (Auto) 0.4 Gran # 4.61 Lymph # 1.9 [place] # 0.4 Eos # 0.1 Baso # 0.03 Sodium 134 Potassium 3.7 Chloride 101 Carbon Dioxide 24 Anion Gap 13 BUN 9 Creatinine 0.6 Est GFR ( Amer) > 60 Est GFR (Non-Af Amer) > 60 POC Glucose (mg/dL) Random Glucose 220 H Hemoglobin A1c 13.8 H D Calcium 8.4 Total Bilirubin 0.9 AST 20 ALT 25 Alkaline Phosphatase 70 Lactate Dehydrogenase 362 358 Total Creatine Kinase 158 126 Troponin I < 0.01 < 0.01 Total Protein 7.1 Albumin 3.5 Globulin 3.6 Albumin/Globulin Ratio 1.0 L Triglycerides 769 H Cholesterol 215 H LDL Cholesterol Direct < 30 HDL Cholesterol 18 L Amylase 51 Lipase 77 12/09/16 12/09/16 08:10 11:41 WBC RBC Hgb Hct MCV MCH MCHC RDW Plt Count MPV Gran % Lymph % (Auto) [place] % (Auto) Eos % (Auto) Baso % (Auto) Gran # Lymph # [place] # Eos # Baso # Sodium Potassium Chloride Carbon Dioxide Anion Gap BUN Creatinine Est GFR ( Amer) Est GFR (Non-Af Amer) POC Glucose (mg/dL) 215 H 224 H Random Glucose Hemoglobin A1c Calcium Total Bilirubin AST ALT Alkaline Phosphatase Lactate Dehydrogenase Total Creatine Kinase Troponin I Total Protein Albumin Globulin Albumin/Globulin Ratio Triglycerides Cholesterol LDL Cholesterol Direct HDL Cholesterol Amylase Lipase Assessment & Plan - Assessment and Plan (Free Text) Assessment: 41 year old male with h/o DM, Chronic pancreatitis c/b pseudocyst, HCV who presents with abdominal pain. 1. Chronic pancreatitis 2. Pseudocyst 3. Hepatitis C Plan: -recommend pain control as needed -IV hydration and electrolyte replacement -check fecal elastase -smoking and alcohol abstinence advised -start pancreatic enzymes and PPI -low fat diet as tolerated -no indication for EUS at this time, as he recently had this done -pseudocyst is not large enough to warrant drainage at this time -recommend HCV therapy as outpatient - Date & Time Date: 12/09/16 Time: 12:52
--- NOTE | 2016-12-09 17:21 | CP.PCM.PN ---
<Marc Alford - Last Filed: 12/09/16 17:59> Subjective - Date & Time of Evaluation Date of Evaluation: 12/09/16 Time of Evaluation: 09:00 - Subjective Subjective: Medicine Progress note. Dr. Schroeder Pt seen and examined at bedside. No acute events overnight. Still c/o RUQ pain, No F/C. No N/V/D. No CP/SOB Objective - Vital Signs/Intake and Output Vital Signs (last 24 hours): Temp Pulse Resp BP Pulse Ox 98 F 59 L 20 126/83 98 12/09/16 07:52 12/09/16 07:52 12/09/16 07:52 12/09/16 07:52 12/09/16 07:52 Intake and Output: 12/09/16 12/09/16 06:59 18:59 Intake Total 0 Balance 0 - Medications Medications: Current Medications Amylase (Pancrease 19231 U-5000 U-70140 U) 25,000 u PO WM [facility] Last Admin: 12/09/16 16:44 Dose: 25,000 u Gemfibrozil (Lopid) 600 mg PO BID [facility] Last Admin: 12/09/16 11:12 Dose: 600 mg Sodium Chloride (Sodium Chloride 0.9%) 1,000 mls @ 150 mls/hr IV .Q6H40M [facility] Last Admin: 12/09/16 16:44 Dose: 150 mls/hr Influenza Virus Vaccine (Fluvirin) 45 mcg IM .ONCE ONE Stop: 12/11/16 10:01 Insulin Human Lispro (Humalog Med) 0 units SC ACHS [facility] PRN Reason: Protocol Last Admin: 12/09/16 16:56 Dose: 7 units Morphine Sulfate (Morphine) 1 mg IVP Q4 PRN PRN Reason: Pain, moderate (4-7) Last Admin: 12/09/16 15:39 Dose: 1 mg Ondansetron HCl (Zofran Inj) 4 mg IVP Q6 PRN PRN Reason: Nausea/Vomiting Pantoprazole Sodium (Protonix Inj) 40 mg IVP DAILY [facility] Last Admin: 12/09/16 10:57 Dose: 40 mg Pneumococcal Polyvalent Vaccine (Pneumovax 23 Vaccine) 0.5 ml IM .ONCE ONE Stop: 12/11/16 10:01 - Labs Labs: 12/09/16 05:00 12/09/16 05:00 PT 11.0 Seconds (9.9-11.8) 12/08/16 18:01 INR 1.02 (0.93-1.08) 12/08/16 18:01 APTT 30.1 Seconds (23.7-30.8) 12/08/16 18:01 - Constitutional Appears: Well, No Acute Distress - Head Exam Head Exam: ATRAUMATIC, NORMAL INSPECTION, NORMOCEPHALIC - Eye Exam Eye Exam: EOMI, Normal appearance, PERRL. absent: Scleral icterus Pupil Exam: PERRL - ENT Exam ENT Exam: Mucous Membranes Moist, Normal Exam - Neck Exam Neck Exam: Full ROM - Respiratory Exam Respiratory Exam: Clear to Ausculation Bilateral, NORMAL BREATHING PATTERN. absent: Wheezes, Respiratory Distress - Cardiovascular Exam Cardiovascular Exam: REGULAR RHYTHM, RRR, +S1, +S2. absent: JVD - GI/Abdominal Exam GI & Abdominal Exam: Soft, Normal Bowel Sounds Additional comments: RUQ tenderness - Extremities Exam Extremities Exam: Normal Inspection - Back Exam Back Exam: NORMAL INSPECTION - Neurological Exam Neurological Exam: Alert, Awake, Oriented x3 - Psychiatric Exam Psychiatric exam: Normal Affect, Normal Mood - Skin Skin Exam: Dry, Intact, Normal Color, Warm Assessment and Plan - Assessment and Plan (Free Text) Assessment: 41yo M with PMHx of DM, Hep C, chronic Pancreatitis here for evaluation of RUQ abd pain. 1. Acute on Chronic Pancreatitis associated with atypical chest pain Troponins negative Lipase negative CT Abd - evidence of acute pancreatitis. 2.8 x 2.8 cm pseudocyst in the body of the pancreas. ?portal/splenic vein thrombosis Abd US - no evidence of portal vein thrombus GI consulted, Dr. Floyd, appreciate recs ADAT continue IVF and electrolyte replacement Start pancreatic enzymes No indications for EUS No indication to drain pseudocyst at this time f/u fecal elastase Troponins negative x3 No EKG changes Pain control Zofran prn 2. Hx of Hep C GI recommends HCV therapy as outpatient 3. Hx of DM Continue home Insulin regimen Medium dose SS Accuchecks 4. PPx Lovenox Protonix Discussed case with Dr. Elda Alford PGY1 <Elda ESPINOZA,Cameron - Last Filed: 12/10/16 15:00> Objective - Vital Signs/Intake and Output Vital Signs (last 24 hours): Temp Pulse Resp BP Pulse Ox 97.8 F 63 20 123/74 97 12/10/16 07:51 12/10/16 07:51 12/10/16 07:51 12/10/16 07:51 12/10/16 07:51 Intake and Output: 12/10/16 12/10/16 06:59 18:59 Intake Total 2520 Output Total 2 Balance 2518 - Medications Medications: Current Medications Amylase (Pancrease 26096 U-5000 U-11972 U) 25,000 u PO WM [facility] Last Admin: 12/10/16 12:48 Dose: 25,000 u Gabapentin (Neurontin) 100 mg PO 1000 [facility] PRN Reason: Protocol Gabapentin (Neurontin) 100 mg PO 1400 [facility] PRN Reason: Protocol Last Admin: 12/10/16 13:08 Dose: 100 mg Gabapentin (Neurontin) 300 mg PO 1800 [facility] PRN Reason: Protocol Gemfibrozil (Lopid) 600 mg PO BID [facility] Last Admin: 12/10/16 11:02 Dose: 600 mg Sodium Chloride (Sodium Chloride 0.9%) 1,000 mls @ 150 mls/hr IV .Q6H40M [facility] Last Admin: 12/10/16 12:48 Dose: 150 mls/hr Influenza Virus Vaccine (Fluvirin) 45 mcg IM .ONCE ONE Stop: 12/11/16 10:01 Insulin Human Lispro (Humalog Med) 0 units SC ACHS [facility] PRN Reason: Protocol Last Admin: 12/10/16 12:48 Dose: 5 units Ondansetron HCl (Zofran Inj) 4 mg IVP Q6 PRN PRN Reason: Nausea/Vomiting Oxycodone/Acetaminophen (Percocet 5/325 Mg Tab) 2 tab PO Q4H PRN PRN Reason: Pain, severe (8-10) Stop: 12/13/16 12:28 Oxycodone/Acetaminophen (Percocet 5/325 Mg Tab) 1 tab PO Q4H PRN PRN Reason: Pain, moderate (4-7) Stop: 12/13/16 12:28 Pantoprazole Sodium (Protonix Inj) 40 mg IVP DAILY [facility] Last Admin: 12/10/16 11:02 Dose: 40 mg Pneumococcal Polyvalent Vaccine (Pneumovax 23 Vaccine) 0.5 ml IM .ONCE ONE Stop: 12/11/16 10:01 - Labs Labs: 12/10/16 07:30 12/10/16 07:30 PT 11.0 Seconds (9.9-11.8) 12/08/16 18:01 INR 1.02 (0.93-1.08) 12/08/16 18:01 APTT 30.1 Seconds (23.7-30.8) 12/08/16 18:01 Attending/Attestation - Attestation I have personally seen and examined this patient.: Yes I have fully participated in the care of the patient.: Yes I have reviewed all pertinent clinical information, including history, physical exam and plan: Yes Notes (Text): Patient was seen and examined with medical front desk coordinator .Agreed with resident assessment and plan. 41 yrs old male with acute on chronic pancreatitis and small psedocyst, we will continue IV hydration, pain medications and will follow p with GI. Patient blood sugars are running high, we will monitor and adjust medications. Management plan was discussed in detail with patient Education was provided.
--- NOTE | 2016-12-09 18:44 | CARD ---
APPROVED REPORT EKG Measurement Heart [id number] <Conclusion> Poor data quality, interpretation may be adversely affected Marked sinus bradycardia Abnormal ECG
[2016-12-10] MEDS: Morphine 2 mg/ml ISec IVP PRN ×2 (05:58→11:01)
[2016-12-10 07:49] LABS: ADD MANUAL DIFF? NO
[2016-12-10 07:56] LABS: BASO # 0.04 [, K/mm3] (0.0-2.0); BASO % 1.3 % (0.0-3.0); EOS # 0.1 (0.0-0.7); EOS % 3.5 % (1.5-5.0); HEMATOCRIT 35.1 % (42.0-52.0); LYMPH # 1.5 (1.2-3.4); LYMPH % 47.4 % (22.0-35.0); MEAN CELL VOLUME 74.8 fL (80.0-105.0); MEAN CORPUSCULAR HEMOGLOBIN 25.8 pg (25.0-35.0); MEAN CORPUSCULAR HGB CONC 34.5 g/dl (31.0-37.0); MEAN PLATELET VOLUME 11.1 fl (7.0-11.0); MONO # 0.2 (0.1-0.6); MONO % 5.8 % (1.0-6.0); PLATELET COUNT 116 [, 10^3/uL] (120.0-450.0); WHITE BLOOD COUNT 3.1 [, 10^3/ul] (4.5-11.0)
[2016-12-10 08:08] LABS: ALB/GLOB RATIO 0.9 (1.1-1.8); ALKALINE PHOSPHATASE 72 U/L (38-133); ALT/SGPT 24 U/L (7-56); AST/SGOT 21 U/L (15-59); BILIRUBIN,TOTAL 0.7 mg/dL (0.2-1.3); BLOOD UREA NITROGEN 8 mg/dL (7-21); CALCIUM 8.3 mg/dL (8.4-10.5); CARBON DIOXIDE 27 mmol/L (21-33); CHLORIDE 101 mmol/L (95-110); GFR AFRICAN-AMERICAN > 60; GLUCOSE,RANDOM 280 mg/dL (70-110); POTASSIUM 4.7 mmol/L (3.6-5.0); SODIUM 135 mmol/L (132-148); TOTAL PROTEIN 6.5 g/dL (5.8-8.3)
[2016-12-10] MEDS: Amylase/Lipase/Protease 5,000 U ECC PO SCH ×3 (08:41→17:11)
[2016-12-10] MEDS: Insulin Lispro (humaLOG) MEDIUM Coverage SC SCH ×3 (08:41→17:12)
[2016-12-10] MEDS: Insulin Human NPH/Reg 70/30 Vial(3 ml) SC SCH ×2 (11:02→17:13)
[2016-12-10] MEDS ORDERED: Oxycodone/Acetaminophen 5/325 mg Tab PO PRN (12:27)
--- NOTE | 2016-12-10 12:28 | CP.PCM.PN ---
<PrashanthMarc - Last Filed: 12/10/16 17:26> Subjective - Date & Time of Evaluation Date of Evaluation: 12/10/16 Time of Evaluation: 08:40 - Subjective Subjective: Medicine Progress note. Dr. Schroeder Pt seen and examined at bedside. No acute events overnight. Abd Pain improved. No N/V/D. No CP/SOB. No F/C. Tolerating diet. No new complaints. Objective - Vital Signs/Intake and Output Vital Signs (last 24 hours): Temp Pulse Resp BP Pulse Ox 97.8 F 63 20 123/74 97 12/10/16 07:51 12/10/16 07:51 12/10/16 07:51 12/10/16 07:51 12/10/16 07:51 Intake and Output: 12/10/16 12/10/16 06:59 18:59 Intake Total 2520 Output Total 2 Balance 2518 - Medications Medications: Current Medications Amylase (Pancrease 53059 U-5000 U-94772 U) 25,000 u PO WM [facility] Last Admin: 12/10/16 08:41 Dose: 25,000 u Gabapentin (Neurontin) 100 mg PO 1000 DO PRN Reason: Protocol Gabapentin (Neurontin) 100 mg PO 1400 DO PRN Reason: Protocol Gabapentin (Neurontin) 300 mg PO 1800 DO PRN Reason: Protocol Gemfibrozil (Lopid) 600 mg PO BID [facility] Last Admin: 12/10/16 11:02 Dose: 600 mg Sodium Chloride (Sodium Chloride 0.9%) 1,000 mls @ 150 mls/hr IV .Q6H40M [facility] Last Admin: 12/09/16 22:47 Dose: 150 mls/hr Influenza Virus Vaccine (Fluvirin) 45 mcg IM .ONCE ONE Stop: 12/11/16 10:01 Insulin Human Lispro (Humalog Med) 0 units SC ACHS DO PRN Reason: Protocol Last Admin: 12/10/16 08:41 Dose: 5 units Ondansetron HCl (Zofran Inj) 4 mg IVP Q6 PRN PRN Reason: Nausea/Vomiting Oxycodone/Acetaminophen (Percocet 5/325 Mg Tab) 2 tab PO Q4H PRN PRN Reason: Pain, severe (8-10) Stop: 12/13/16 12:28 Oxycodone/Acetaminophen (Percocet 5/325 Mg Tab) 1 tab PO Q4H PRN PRN Reason: Pain, moderate (4-7) Stop: 12/13/16 12:28 Pantoprazole Sodium (Protonix Inj) 40 mg IVP DAILY DO Last Admin: 12/10/16 11:02 Dose: 40 mg Pneumococcal Polyvalent Vaccine (Pneumovax 23 Vaccine) 0.5 ml IM .ONCE ONE Stop: 12/11/16 10:01 - Labs Labs: 12/10/16 07:30 12/10/16 07:30 PT 11.0 Seconds (9.9-11.8) 12/08/16 18:01 INR 1.02 (0.93-1.08) 12/08/16 18:01 APTT 30.1 Seconds (23.7-30.8) 12/08/16 18:01 - Constitutional Appears: Well, No Acute Distress - Head Exam Head Exam: ATRAUMATIC, NORMAL INSPECTION, NORMOCEPHALIC - Eye Exam Eye Exam: EOMI, Normal appearance, PERRL. absent: Scleral icterus Pupil Exam: PERRL - ENT Exam ENT Exam: Mucous Membranes Moist - Respiratory Exam Respiratory Exam: Clear to Ausculation Bilateral, NORMAL BREATHING PATTERN. absent: Decreased Breath Sounds, Wheezes, Respiratory Distress - Cardiovascular Exam Cardiovascular Exam: RRR, +S1, +S2. absent: JVD - GI/Abdominal Exam GI & Abdominal Exam: Soft Additional comments: tenderness to palpation right Upper quadrant - Extremities Exam Extremities Exam: Normal Inspection. absent: Calf Tenderness, Pedal Edema - Back Exam Back Exam: NORMAL INSPECTION - Neurological Exam Neurological Exam: Alert, Awake, Oriented x3. absent: Normal Gait - Psychiatric Exam Psychiatric exam: Normal Affect, Normal Mood - Skin Skin Exam: Dry, Intact, Normal Color, Warm Assessment and Plan - Assessment and Plan (Free Text) Assessment: 41yo M with PMHx of DM, Hep C, chronic Pancreatitis here for evaluation of RUQ abd pain. 1. Acute on Chronic Pancreatitis associated with atypical chest pain Troponins negative Lipase negative CT Abd - evidence of acute pancreatitis. 2.8 x 2.8 cm pseudocyst in the body of the pancreas. ?portal/splenic vein thrombosis Abd US - no evidence of portal vein thrombus GI consulted, Dr. Floyd, appreciate recs ADAT. Low fat diet continue IVF and electrolyte replacement Continue Pancreatic enzymes, take 30 mins pre meal No indications for EUS No indication to drain pseudocyst at this time Patient to follow up with [facility] with his GI f/u fecal elastase Troponins negative x3 No EKG changes Pain control, PO regimen Zofran prn 2. Hx of Hep C GI recommends HCV therapy as outpatient Patient to follow up at [facility] with his GI 3. Hx of DM Continue home Insulin regimen Medium dose SS Accuchecks Gabapentin started for neuropathy. Gabapentin 100mg PO 1000 Gabapentin 100mg PO 1400 Gabapentin 300mg PO 1800 4. PPx Protonix Discussed case with Dr. Elda Alford PGY1 <Cameron Schroeder MD - Last Filed: 12/11/16 12:18> Objective - Vital Signs/Intake and Output Vital Signs (last 24 hours): Temp Pulse Resp BP Pulse Ox 97.3 F L 50 L 16 105/59 L 98 12/11/16 07:51 12/11/16 07:51 12/11/16 07:51 12/11/16 07:51 12/11/16 07:51 Intake and Output: 12/11/16 12/11/16 06:59 18:59 Intake Total 1000 Balance 1000 - Medications Medications: Current Medications Amylase (Pancrease 02815 U-5000 U-92181 U) 25,000 u PO WM [facility] Last Admin: 12/11/16 11:53 Dose: 25,000 u Gabapentin (Neurontin) 100 mg PO 1000 DO PRN Reason: Protocol Last Admin: 12/11/16 10:08 Dose: 100 mg Gabapentin (Neurontin) 100 mg PO 1400 DO PRN Reason: Protocol Last Admin: 12/10/16 13:08 Dose: 100 mg Gabapentin (Neurontin) 300 mg PO 1800 DO PRN Reason: Protocol Last Admin: 12/10/16 17:12 Dose: 300 mg Gemfibrozil (Lopid) 600 mg PO BID [facility] Last Admin: 12/11/16 10:09 Dose: 600 mg Insulin Human Lispro (Humalog Med) 0 units SC ACHS DO PRN Reason: Protocol Last Admin: 12/11/16 11:53 Dose: 7 units Ondansetron HCl (Zofran Inj) 4 mg IVP Q6 PRN PRN Reason: Nausea/Vomiting Oxycodone/Acetaminophen (Percocet 5/325 Mg Tab) 2 tab PO Q4H PRN PRN Reason: Pain, severe (8-10) Stop: 12/13/16 12:28 Last Admin: 12/10/16 17:11 Dose: 2 tab Oxycodone/Acetaminophen (Percocet 5/325 Mg Tab) 1 tab PO Q4H PRN PRN Reason: Pain, moderate (4-7) Stop: 12/13/16 12:28 Last Admin: 12/11/16 08:28 Dose: 1 tab Pantoprazole Sodium (Protonix Inj) 40 mg IVP DAILY DO Last Admin: 12/11/16 10:08 Dose: 40 mg - Labs Labs: 12/11/16 07:45 12/11/16 07:45 PT 11.0 Seconds (9.9-11.8) 12/08/16 18:01 INR 1.02 (0.93-1.08) 12/08/16 18:01 APTT 30.1 Seconds (23.7-30.8) 12/08/16 18:01 Attending/Attestation - Attestation I have personally seen and examined this patient.: Yes I have fully participated in the care of the patient.: Yes I have reviewed all pertinent clinical information, including history, physical exam and plan: Yes Notes (Text): Patient was seen and examined with medical staff physician .Agreed with resident assessment and plan. Patient is improving, abdominal pain is better, we will stop IV pain medication and will start on oral pain medicattion, we will also stop IV fluid, if able to tolerate food with oral pain medication, will DC home. Patient has mild Neutropenia, he is afebrile, we will monitor Management plan was discussed in detail with patient Education was provided.
[2016-12-10] MEDS: Sodium Chloride 0.9% 1,000 ML IV SCH ×2 (12:48→18:27)
--- NOTE | 2016-12-10 15:44 | CP.PCM.PN ---
Subjective - Date & Time of Evaluation Date of Evaluation: 12/10/16 Time of Evaluation: 09:30 - Subjective Subjective: Patient seen and examined. He feels a little better today. Still with mild abdominal pain. No nausea or vomiting. Had 1 loose BM yesterday. ROS otherwise negative in detail Objective - Vital Signs/Intake and Output Vital Signs (last 24 hours): Temp Pulse Resp BP Pulse Ox 97.8 F 63 20 123/74 97 12/10/16 07:51 12/10/16 07:51 12/10/16 07:51 12/10/16 07:51 12/10/16 07:51 Intake and Output: 12/10/16 12/10/16 06:59 18:59 Intake Total 2520 Output Total 2 Balance 2518 - Medications Medications: Current Medications Amylase (Pancrease 36688 U-5000 U-15321 U) 25,000 u PO WM [facility] Last Admin: 12/10/16 12:48 Dose: 25,000 u Gabapentin (Neurontin) 100 mg PO 1000 [facility] PRN Reason: Protocol Gabapentin (Neurontin) 100 mg PO 1400 [facility] PRN Reason: Protocol Last Admin: 12/10/16 13:08 Dose: 100 mg Gabapentin (Neurontin) 300 mg PO 1800 [facility] PRN Reason: Protocol Gemfibrozil (Lopid) 600 mg PO BID [facility] Last Admin: 12/10/16 11:02 Dose: 600 mg Sodium Chloride (Sodium Chloride 0.9%) 1,000 mls @ 150 mls/hr IV .Q6H40M [facility] Last Admin: 12/10/16 12:48 Dose: 150 mls/hr Influenza Virus Vaccine (Fluvirin) 45 mcg IM .ONCE ONE Stop: 12/11/16 10:01 Insulin Human Lispro (Humalog Med) 0 units SC ACHS [facility] PRN Reason: Protocol Last Admin: 12/10/16 12:48 Dose: 5 units Ondansetron HCl (Zofran Inj) 4 mg IVP Q6 PRN PRN Reason: Nausea/Vomiting Oxycodone/Acetaminophen (Percocet 5/325 Mg Tab) 2 tab PO Q4H PRN PRN Reason: Pain, severe (8-10) Stop: 12/13/16 12:28 Oxycodone/Acetaminophen (Percocet 5/325 Mg Tab) 1 tab PO Q4H PRN PRN Reason: Pain, moderate (4-7) Stop: 12/13/16 12:28 Pantoprazole Sodium (Protonix Inj) 40 mg IVP DAILY DO Last Admin: 12/10/16 11:02 Dose: 40 mg Pneumococcal Polyvalent Vaccine (Pneumovax 23 Vaccine) 0.5 ml IM .ONCE ONE Stop: 12/11/16 10:01 - Labs Labs: 12/10/16 07:30 12/10/16 07:30 PT 11.0 Seconds (9.9-11.8) 12/08/16 18:01 INR 1.02 (0.93-1.08) 12/08/16 18:01 APTT 30.1 Seconds (23.7-30.8) 12/08/16 18:01 - Constitutional Appears: No Acute Distress - Eye Exam Eye Exam: absent: Scleral icterus - ENT Exam ENT Exam: Mucous Membranes Moist - Respiratory Exam Respiratory Exam: Clear to Ausculation Bilateral - Cardiovascular Exam Cardiovascular Exam: +S1, +S2 - GI/Abdominal Exam Additional comments: abdomen soft, non tender to palpation, multiple healed surgical scars, bowel sounds present - Extremities Exam Extremities Exam: absent: Pedal Edema - Neurological Exam Neurological Exam: Alert, Oriented x3 - Skin Skin Exam: Dry Assessment and Plan - Assessment and Plan (Free Text) Assessment: This is a 41 year old male with h/o DM, chronic pancreatitis complicated by pseudocyst, HCV who presents with abdominal pain. Plan: Continue supportive care Continue pancreatic enzymes and PPI Monitor LFTs F/u pancreatic elastase Pain control as needed Low fat diet as tolerated He will need outpatient follow up with his public health aides teacher for follow up of chronic pancreatitis D/w primary team Please call with any questions
[2016-12-10] MEDS: Oxycodone/Acetaminophen 5/325 mg Tab PO PRN (22:20)
[2016-12-11 08:12] LABS: ADD MANUAL DIFF? NO
[2016-12-11 08:20] LABS: BASO # 0.04 [, K/mm3] (0.0-2.0); BASO % 1.2 % (0.0-3.0); EOS # 0.1 (0.0-0.7); EOS % 2.9 % (1.5-5.0); GRAN # 1.72 (1.4-6.5); GRAN % 49.9 % (50.0-68.0); HEMATOCRIT 35.4 % (42.0-52.0); LYMPH # 1.3 (1.2-3.4); LYMPH % 38.8 % (22.0-35.0); MEAN CELL VOLUME 74.7 fL (80.0-105.0); MEAN CORPUSCULAR HEMOGLOBIN 25.7 pg (25.0-35.0); MEAN CORPUSCULAR HGB CONC 34.5 g/dl (31.0-37.0); MEAN PLATELET VOLUME 10.8 fl (7.0-11.0); MONO # 0.3 (0.1-0.6); MONO % 7.2 % (1.0-6.0); PLATELET COUNT 102 [, 10^3/uL] (120.0-450.0); RED CELL DISTRIBUTION WIDTH 15.6 % (11.5-14.5); WHITE BLOOD COUNT 3.5 [, 10^3/ul] (4.5-11.0)
[2016-12-11] MEDS: Insulin Lispro (humaLOG) MEDIUM Coverage SC SCH ×3 (08:26→17:25)
[2016-12-11] MEDS: Amylase/Lipase/Protease 5,000 U ECC PO SCH ×3 (08:26→17:26)
[2016-12-11] MEDS: Sodium Chloride 0.9% 1,000 ML IV SCH (08:27)
[2016-12-11] MEDS: Oxycodone/Acetaminophen 5/325 mg Tab PO PRN (08:28)
[2016-12-11 08:30] LABS: ALB/GLOB RATIO 0.9 (1.1-1.8); ALKALINE PHOSPHATASE 67 U/L (38-133); ALT/SGPT 21 U/L (7-56); AST/SGOT 30 U/L (15-59); BILIRUBIN,TOTAL 0.7 mg/dL (0.2-1.3); BLOOD UREA NITROGEN 7 mg/dL (7-21); CALCIUM 8.3 mg/dL (8.4-10.5); CARBON DIOXIDE 26 mmol/L (21-33); CHLORIDE 102 mmol/L (98-107); GFR AFRICAN-AMERICAN > 60; GLUCOSE,RANDOM 155 mg/dL (70-110); POTASSIUM 4.3 mmol/L (3.6-5.0); SODIUM 136 mmol/L (132-148); TOTAL PROTEIN 6.8 g/dL (5.8-8.3)
[2016-12-11] MEDS ORDERED: Pneumococcal 23-Valent Vaccine IM ONE (10:00)
[2016-12-11] MEDS ORDERED: Influenza Vaccine 45 MCG/0.5 ml IM ONE (10:00)
[2016-12-11] MEDS: Insulin Human NPH/Reg 70/30 Vial(3 ml) SC SCH (10:09)
--- NOTE | 2016-12-11 13:17 | CP.PCM.DIS ---
<Cesario Oreilly - Last Filed: 12/11/16 13:08> Provider - Provider Date of Admission: 12/08/16 20:22 Attending physician: Ayaz Gallo MD Primary care physician: Singh Awad MD Consults: GI - Dr. Chilel Time Spent in preparation of Discharge (in minutes): 45 Diagnosis - Discharge Diagnosis (1) Abdominal pain Status: Chronic Priority: Medium (2) Pancreatitis Status: Chronic Priority: Medium (3) Intractable abdominal pain Status: Chronic Priority: Medium Hospital Course - Lab Results Lab Results: Most Recent Lab Values WBC 3.5 10^3/ul (4.5-11.0) L 12/11/16 07:45 RBC 4.74 10^6/uL (3.5-6.1) 12/11/16 07:45 Hgb 12.2 gm/dL (14.0-18.0) L 12/11/16 07:45 Hct 35.4 % (42.0-52.0) L 12/11/16 07:45 MCV 74.7 fL (80.0-105.0) L 12/11/16 07:45 MCH 25.7 pg (25.0-35.0) 12/11/16 07:45 MCHC 34.5 g/dl (31.0-37.0) 12/11/16 07:45 RDW 15.6 % (11.5-14.5) H 12/11/16 07:45 Plt Count 102 10^3/uL (120.0-450.0) L 12/11/16 07:45 MPV 10.8 fl (7.0-11.0) 12/11/16 07:45 Gran % 49.9 % (50.0-68.0) L 12/11/16 07:45 Lymph % (Auto) 38.8 % (22.0-35.0) H 12/11/16 07:45 Gilliam % (Auto) 7.2 % (1.0-6.0) H 12/11/16 07:45 Eos % (Auto) 2.9 % (1.5-5.0) 12/11/16 07:45 Baso % (Auto) 1.2 % (0.0-3.0) 12/11/16 07:45 Gran # 1.72 (1.4-6.5) 12/11/16 07:45 Lymph # 1.3 (1.2-3.4) 12/11/16 07:45 Gilliam # 0.3 (0.1-0.6) 12/11/16 07:45 Eos # 0.1 (0.0-0.7) 12/11/16 07:45 Baso # 0.04 K/mm3 (0.0-2.0) 12/11/16 07:45 PT 11.0 Seconds (9.9-11.8) 12/08/16 18:01 INR 1.02 (0.93-1.08) 12/08/16 18:01 APTT 30.1 Seconds (23.7-30.8) 12/08/16 18:01 Sodium 136 mmol/L (132-148) 12/11/16 07:45 Potassium 4.3 mmol/L (3.6-5.0) 12/11/16 07:45 Chloride 102 mmol/L (98-107) 12/11/16 07:45 Carbon Dioxide 26 mmol/L (21-33) 12/11/16 07:45 Anion Gap 12 (10-20) 12/11/16 07:45 BUN 7 mg/dL (7-21) 12/11/16 07:45 Creatinine 0.6 mg/dL (0.5-1.4) 12/11/16 07:45 Est GFR ( Amer) > 60 12/11/16 07:45 Est GFR (Non-Af Amer) > 60 12/11/16 07:45 POC Glucose (mg/dL) 325 mg/dL (65-110) H 12/11/16 11:34 Random Glucose 155 mg/dL (70-110) H 12/11/16 07:45 Hemoglobin A1c 13.8 % (4.2-6.5) H D 12/09/16 07:30 Calcium 8.3 mg/dL (8.4-10.5) L 12/11/16 07:45 Magnesium 1.8 mg/dL (1.7-2.2) 12/08/16 18:55 Total Bilirubin 0.7 mg/dL (0.2-1.3) 12/11/16 07:45 AST 30 U/L (15-59) 12/11/16 07:45 ALT 21 U/L (7-56) 12/11/16 07:45 Alkaline Phosphatase 67 U/L (38-133) 12/11/16 07:45 Lactate Dehydrogenase 358 U/L (333-699) 12/09/16 05:00 Total Creatine Kinase 126 U/L (35-230) 12/09/16 05:00 Troponin I < 0.01 ng/mL 12/09/16 05:00 Total Protein 6.8 g/dL (5.8-8.3) 12/11/16 07:45 Albumin 3.2 g/dL (3.0-4.8) 12/11/16 07:45 Globulin 3.6 gm/dL 12/11/16 07:45 Albumin/Globulin Ratio 0.9 (1.1-1.8) L 12/11/16 07:45 Triglycerides 769 mg/dL (35-160) H 12/09/16 05:00 Cholesterol 215 mg/dL (130-200) H 12/09/16 05:00 LDL Cholesterol Direct < 30 mg/dL (0-129) 12/09/16 05:00 HDL Cholesterol 18 mg/dL (29-60) L 12/09/16 05:00 Amylase 51 U/L (35-125) 12/09/16 05:00 Lipase 77 U/L (23-300) 12/09/16 05:00 Urine Color Straw (YELLOW) 12/08/16 18:01 Urine Appearance Clear (CLEAR) 12/08/16 18:01 Urine pH 6.0 (4.7-8.0) 12/08/16 18:01 Ur Specific [place] <= 1.005 (1.005-1.035) 12/08/16 18:01 Urine Protein Negative mg/dL (<30 mg/dL) 12/08/16 18:01 Urine Glucose (UA) >=1000 mg/dL (NEGATIVE) 12/08/16 18:01 Urine Ketones Negative mg/dL (NEGATIVE) 12/08/16 18:01 Urine Blood Negative (NEGATIVE) 12/08/16 18:01 Urine Nitrate Negative (NEGATIVE) 12/08/16 18:01 Urine Bilirubin Negative (NEGATIVE) 12/08/16 18:01 Urine Urobilinogen 0.2 E.U./dL (<1 E.U./dL) 12/08/16 18:01 Ur Leukocyte Esterase Negative [place]/uL (NEGATIVE) 12/08/16 18:01 Hepatitis A IgM Ab Negative (NEGATIVE) 12/09/16 05:00 Hep Bs Antigen Negative (NEGATIVE) 12/09/16 05:00 Hep B Core IgM Ab Negative (NEGATIVE) 12/09/16 05:00 Hepatitis C Antibody Reactive (NEGATIVE) H 12/09/16 05:00 - Hospital Course Hospital Course: 40 y/o M with PMH of DM2, hepatitis c, pancreatitis, appendectomy and cholecystectomy presents to the emergency department complaining of right upper abdominal pain radiating to right side of chest for the past 3 days. Patient reports he has been seen in the ER multiple times for the same abdominal pain, however, has not felt this chest pain before. Patient states his pain is sharp, worsened during inhalation. Pt was admitted for exacerbation of acute on chronic pancreatitis and atypical chest pain. Chest pain was thought to be secondary to pancreatitis as troponins were negative and EKG was NSR with bradycardia. Abdominal CT shows pancreatic lesion of 2.8 x 2.8 cm lesion in the body of the pancreas, likely a pseudocyst. Pt was also found to have extensive gastric, perisplenic, and splenorenal varices. To follow up varicies, pt underwent abdominal ultrasound which showed patent portal vein with hepatopetal flow. GI recommended the patient follow up outpt and continue to take pancreatic enzymes 30 minutes before meals. Discharge Exam - Head Exam Head Exam: ATRAUMATIC, NORMAL INSPECTION, NORMOCEPHALIC - ENT Exam ENT Exam: Mucous Membranes Moist, Normal Exam - Respiratory Exam Respiratory Exam: NORMAL BREATHING PATTERN, UNREMARKABLE. absent: Wheezes - Cardiovascular Exam Cardiovascular Exam: RRR, +S1, +S2 - GI/Abdominal Exam GI & Abdominal Exam: Normal Bowel Sounds, Soft, Tenderness (Diffuse tenderness, mainly in Epigastric region. ) Additional comments: Surgical scars presents. - Extremities Exam Extremities exam: normal inspection - Neurological Exam Neurological exam: Alert, Oriented x3 - Psychiatric Exam Psychiatric exam: Normal Affect, Normal Mood - Skin Skin Exam: Intact, Normal Color, Warm Discharge Plan - Discharge Medications Prescriptions: Gemfibrozil [Lopid] 600 mg PO BID #14 tab Gabapentin [Neurontin] 300 mg PO 1800 #7 cap Insulin Aspart/Insulin Aspar [Novolog Mix 70/30 (70/30 units/ml)] 25 unit SC BID #28 unit Amylase/Lipase/Protease [Pancrease 78539 U-5000 U-97527 U] 25,000 u PO WM #30 ecc oxyCODONE/Acetaminophen [Percocet 5/325 mg Tab] 2 tab PO Q4H PRN #18 tab PRN Reason: Pain, Severe (8-10) - Follow Up Plan Condition: FAIR Disposition: HOME/ ROUTINE Additional Instructions: Follow up with PMD within 1 week. Follow up with GI within 1 week. Take pancreatic enzymes 30 minutes before meals. Referrals: Singh Awad MD [Primary Care Provider] - <Elda ESPINOZA,[facility] - Last Filed: 12/11/16 15:47> Provider - Provider Date of Admission: 12/08/16 20:22 Attending physician: Ayaz Gallo MD Primary care physician: Singh Awad MD Hospital Course - Lab Results Lab Results: Most Recent Lab Values WBC 3.5 10^3/ul (4.5-11.0) L 12/11/16 07:45 RBC 4.74 10^6/uL (3.5-6.1) 12/11/16 07:45 Hgb 12.2 gm/dL (14.0-18.0) L 12/11/16 07:45 Hct 35.4 % (42.0-52.0) L 12/11/16 07:45 MCV 74.7 fL (80.0-105.0) L 12/11/16 07:45 MCH 25.7 pg (25.0-35.0) 12/11/16 07:45 MCHC 34.5 g/dl (31.0-37.0) 12/11/16 07:45 RDW 15.6 % (11.5-14.5) H 12/11/16 07:45 Plt Count 102 10^3/uL (120.0-450.0) L 12/11/16 07:45 MPV 10.8 fl (7.0-11.0) 12/11/16 07:45 Gran % 49.9 % (50.0-68.0) L 12/11/16 07:45 Lymph % (Auto) 38.8 % (22.0-35.0) H 12/11/16 07:45 Gilliam % (Auto) 7.2 % (1.0-6.0) H 12/11/16 07:45 Eos % (Auto) 2.9 % (1.5-5.0) 12/11/16 07:45 Baso % (Auto) 1.2 % (0.0-3.0) 12/11/16 07:45 Gran # 1.72 (1.4-6.5) 12/11/16 07:45 Lymph # 1.3 (1.2-3.4) 12/11/16 07:45 Gilliam # 0.3 (0.1-0.6) 12/11/16 07:45 Eos # 0.1 (0.0-0.7) 12/11/16 07:45 Baso # 0.04 K/mm3 (0.0-2.0) 12/11/16 07:45 PT 11.0 Seconds (9.9-11.8) 12/08/16 18:01 INR 1.02 (0.93-1.08) 12/08/16 18:01 APTT 30.1 Seconds (23.7-30.8) 12/08/16 18:01 Sodium 136 mmol/L (132-148) 12/11/16 07:45 Potassium 4.3 mmol/L (3.6-5.0) 12/11/16 07:45 Chloride 102 mmol/L (98-107) 12/11/16 07:45 Carbon Dioxide 26 mmol/L (21-33) 12/11/16 07:45 Anion Gap 12 (10-20) 12/11/16 07:45 BUN 7 mg/dL (7-21) 12/11/16 07:45 Creatinine 0.6 mg/dL (0.5-1.4) 12/11/16 07:45 Est GFR ( Amer) > 60 12/11/16 07:45 Est GFR (Non-Af Amer) > 60 12/11/16 07:45 POC Glucose (mg/dL) 325 mg/dL (65-110) H 12/11/16 11:34 Random Glucose 155 mg/dL (70-110) H 12/11/16 07:45 Hemoglobin A1c 13.8 % (4.2-6.5) H D 03/24/17 07:30 Calcium 8.3 mg/dL (8.4-10.5) L 12/11/16 07:45 Magnesium 1.8 mg/dL (1.7-2.2) 12/08/16 18:55 Total Bilirubin 0.7 mg/dL (0.2-1.3) 12/11/16 07:45 AST 30 U/L (15-59) 12/11/16 07:45 ALT 21 U/L (7-56) 12/11/16 07:45 Alkaline Phosphatase 67 U/L (38-133) 12/11/16 07:45 Lactate Dehydrogenase 358 U/L (333-699) 12/09/16 05:00 Total Creatine Kinase 126 U/L (35-230) 12/09/16 05:00 Troponin I < 0.01 ng/mL 12/09/16 05:00 Total Protein 6.8 g/dL (5.8-8.3) 12/11/16 07:45 Albumin 3.2 g/dL (3.0-4.8) 12/11/16 07:45 Globulin 3.6 gm/dL 12/11/16 07:45 Albumin/Globulin Ratio 0.9 (1.1-1.8) L 12/11/16 07:45 Triglycerides 769 mg/dL (35-160) H 12/09/16 05:00 Cholesterol 215 mg/dL (130-200) H 12/09/16 05:00 LDL Cholesterol Direct < 30 mg/dL (0-129) 12/09/16 05:00 HDL Cholesterol 18 mg/dL (29-60) L 12/09/16 05:00 Amylase 51 U/L (35-125) 12/09/16 05:00 Lipase 77 U/L (23-300) 12/09/16 05:00 Urine Color Straw (YELLOW) 12/08/16 18:01 Urine Appearance Clear (CLEAR) 12/08/16 18:01 Urine pH 6.0 (4.7-8.0) 12/08/16 18:01 Ur Specific [place] <= 1.005 (1.005-1.035) 12/08/16 18:01 Urine Protein Negative mg/dL (<30 mg/dL) 03/23/17 18:01 Urine Glucose (UA) >=1000 mg/dL (NEGATIVE) 12/08/16 18:01 Urine Ketones Negative mg/dL (NEGATIVE) 12/08/16 18:01 Urine Blood Negative (NEGATIVE) 12/08/16 18:01 Urine Nitrate Negative (NEGATIVE) 12/08/16 18:01 Urine Bilirubin Negative (NEGATIVE) 12/08/16 18:01 Urine Urobilinogen 0.2 E.U./dL (<1 E.U./dL) 12/08/16 18:01 Ur Leukocyte Esterase Negative [place]/uL (NEGATIVE) 12/08/16 18:01 Hepatitis A IgM Ab Negative (NEGATIVE) 12/09/16 05:00 Hep Bs Antigen Negative (NEGATIVE) 12/09/16 05:00 Hep B Core IgM Ab Negative (NEGATIVE) 12/09/16 05:00 Hepatitis C Antibody Reactive (NEGATIVE) H 12/09/16 05:00 Attending/Attestation - Attestation I have personally seen and examined this patient.: Yes I have fully participated in the care of the patient.: Yes I have reviewed all pertinent clinical information, including history, physical exam and plan: Yes Notes (Text): Patient was seen and examined with medical office technologist .Agreed with resident assessment and plan. 41 year old male with h/o DM, Chronic pancreatitis c/b pseudocyst, HCV who presents with abdominal pain was found to have acute on chronic Pancreatitis, small Pseudocyst and uncontrol DM.Patient was evaluated by GI, and was managed with IV hydration, pain medication .He responded well, was started on oral diet.AT the time of discharge his pain has improved with oral medication.He is tolerating diet and blood sugars are better controlled. Management plan was discussed in detail with patient Education was provided.
[2016-12-11 16:47] VITALS: BP 118/60; PULSE 68; RESP 20; TEMP 98.2; O2SAT 97
== END 2016-12-11 17:48 | disposition home or self-care (01) | DRG 204 ==
LOC: ED 16:25 → ERH 20:22 → 5RSO 23:00
PROVIDERS: ADMIT Internal Medicine; ATTEND Internal Medicine
DX: K85.90 Acute pancreatitis without necrosis or infection, unspecified (principal); E11.40 Type 2 diabetes mellitus with diabetic neuropathy, unspecified; F17.210 Nicotine dependence, cigarettes, uncomplicated; D50.9 Iron deficiency anemia, unspecified; B19.20 Unspecified viral hepatitis C without hepatic coma; I86.4 Gastric varices; I86.8 Varicose veins of other specified sites; K86.1 Other chronic pancreatitis; K59.00 Constipation, unspecified; Z79.4 Long term (current) use of insulin

== ENCOUNTER 2016-12-30 13:35 | Inpatient (IN) | payer OTHER ==
[2016-12-30] MEDS ORDERED: Sodium Chloride 0.9% 1,000 ML IV STA (14:04)
--- NOTE | 2016-12-30 14:08 | ED PDOC ---
Arrival/HPI - General Chief Complaint: Chest Pain Time Seen by Provider: 12/30/16 13:41 Historian: Patient - History of Present Illness Narrative History of Present Illness (Text): 12/30/16 14:05 41 year old male with a past medical history that includes pancreatitis presents to the emergency department with chest pain and vomiting since yesterday. Patient states it is constant and worse with vomiting. He states this feels different from his pancreatitis symptoms. Denies shortness of breath , leg swelling, or other symptoms. PMD: Dr. Hightower Time/Duration: 24 hours Symptom Onset: Gradual Symptom Course: Unchanged Modifying Factors (Text): None Associated Symptoms (Text): None Past Medical History - Provider Review Nursing Documentation Reviewed: Yes - Infectious Disease Hx of Infectious Diseases: None - Tetanus Immunization Tetanus Immunization: Unknown - Cardiac Hx Cardiac Disorders: Yes Hx Hypertension: Yes - Pulmonary Hx Respiratory Disorders: No - Neurological Hx Neurological Disorder: No - HEENT Hx HEENT Disorder: No - Renal Hx Renal Disorder: No - Endocrine/Metabolic Hx Endocrine Disorders: Yes Hx Diabetes Mellitus Type 2: Yes - Hematological/Oncological Hx Blood Disorders: Yes Hx Hepatitis C: Yes - Integumentary Hx Dermatological Disorder: No - Musculoskeletal/Rheumatological Hx Falls: No - Gastrointestinal Hx Gastrointestinal Disorders: Yes Hx Pancreatitis: Yes - Genitourinary/Gynecological Hx Genitourinary Disorders: No - Psychiatric Hx Psychophysiologic Disorder: No Hx Substance Use: No - Surgical History Hx Appendectomy: Yes Hx Cholecystectomy: Yes - Anesthesia Hx Anesthesia: Yes Hx Anesthesia Reactions: No Hx Malignant Hyperthermia: No - Suicidal Assessment Feels Threatened In Home Enviroment: No Family/Social History - Physician Review Nursing Documentation Reviewed: Yes Family/Social History: Unknown Family HX Smoking Status: Light Smoker < 10 Cigarettes Daily Hx Alcohol Use: No Hx Substance Use: No Hx Substance Use Treatment: No Allergies/Home Meds Allergies/Adverse Reactions: Allergies dy Allergy (Mild, Uncoded 12/08/16 16:30) ITCHING hair color dye Allergy (Uncoded 12/08/16 16:30) RASH Review of Systems - Physician Review All systems were reviewed & negative as marked: Yes - Review of Systems Respiratory: absent: SOB Cardiovascular: Chest Pain. absent: Edema Gastrointestinal: Vomiting Physical Exam Vital Signs Reviewed: Yes Vital Signs Temp Pulse Resp BP Pulse Ox 12/30/16 21:54 98.6 F 51 L 20 155/76 H 12/30/16 20:35 97.9 F 56 L 16 171/77 H 98 12/30/16 19:45 50 L 19 152/79 H 100 12/30/16 18:45 49 L 18 142/70 99 12/30/16 16:45 45 L 18 148/76 99 12/30/16 14:45 49 L 19 162/79 H 99 12/30/16 13:51 98.2 F 45 L 20 164/93 H 99 Temperature: Afebrile Blood Pressure: Hypertensive Pulse: Bradycardic Respiratory Rate: Normal Appearance: Positive for: Well-Appearing, Non-Toxic, Uncomfortable Pain Distress: Mild Mental Status: Positive for: Alert and Oriented X 3 Finger Stick Blood Glucose: 316 - Systems Exam Head: Present: Atraumatic, Normocephalic Pupils: Present: PERRL Conjunctiva: Present: Normal Mouth: Present: Moist Mucous Membranes Neck: Present: Normal Range of Motion Respiratory/Chest: Present: Clear to Auscultation, Good Air Exchange, Other ( Left sided chest pain reproducible with palpation). No: Respiratory Distress, Accessory Muscle Use Cardiovascular: No: Murmurs Abdomen: Present: Tenderness (Diffuse abdominal tenderness), Normal Bowel Sounds. No: Distention, Peritoneal Signs Back: Present: Normal Inspection Upper Extremity: Present: Normal Inspection, NORMAL PULSES. No: Cyanosis, Edema Lower Extremity: Present: Normal Inspection. No: Edema Neurological: Present: GCS=15, CN II-XII Intact, Speech Normal Skin: Present: Warm, Dry, Normal Color. No: Rashes Psychiatric: Present: Alert, Oriented x 3, Normal Insight, Normal Concentration Medical Decision Making ED Course and Treatment: EKG shows sinus bradycardia at 45 BPM, left axis deviation, no acute ischemia, no change from prior EKG on 12/08/16 Chest X-ray Freight Rate Specialist : Corbin Perez MD IMPRESSION: No active disease. - Lab Interpretations Lab Results: 12/30/16 13:45 12/30/16 13:45 Lab Results 12/30/16 13:45: WBC 10.7 D, RBC 5.39, Hgb 14.4, Hct 39.8 L, MCV 73.8 L, MCH 26.7, MCHC 36.2, RDW 15.6 H, Plt Count 177, Gran % 83.6 H, Lymph % (Auto) 12.8 L , [place] % (Auto) 3.0, Eos % (Auto) 0.3 L, Baso % (Auto) 0.3, Gran # 8.99 H, Lymph # 1.4, [place] # 0.3, Eos # 0.0, Baso # 0.03, Sodium 135, Potassium 4.8, Chloride 100, Carbon Dioxide 21, Anion Gap 19, BUN 13, Creatinine 0.6, Est GFR ( Amer) > 60, Est GFR (Non-Af Amer) > 60, Random Glucose 325 H* D, Calcium 9.1, Total Bilirubin 2.0 H, AST 47, ALT 23, Alkaline Phosphatase 96, Troponin I 0.02 D, Total Protein 9.2 H, Albumin 4.6, Globulin 4.6, Albumin/ Globulin Ratio 1.0 L, Lipase 117 - RAD Interpretation Radiology Orders: 12/30/16 13:54 CHEST PORTABLE [RAD] Stat - Medication Orders Current Medication Orders: Lactated Ringer's (Lactated Ringer's) 1,000 mls @ 150 mls/hr IV .Q6H40M [facility] Last Admin: 12/30/16 22:08 Dose: 150 MLS/HR eMAR Start Stop Document 12/30/16 22:08 FC (Rec: 12/30/16 22:09 [email or web address]) Intravenous Solution Start Date 12/30/16 Start Time 22:09 End Date 12/31/16 Insulin Detemir (Levemir) 20 unit SC BID [facility] Insulin Human Regular (Humulin R Low) 0 units SC Q6H [facility] PRN Reason: Protocol Last Admin: 12/30/16 22:20 Dose: Not Given Non-Admin Reason: Blood Sugar Parameter [facility] Blood Glucose Document 12/30/16 22:20 FC (Rec: 12/30/16 22:20 FC [email or web address]) Blood Glucose Finger Stick Blood Glucose (70-120) 256 Morphine Sulfate (Morphine) 2 mg IVP Q4H PRN PRN Reason: Pain, severe (8-10) Last Admin: 12/30/16 22:08 Dose: 2 MG [facility] Pain Assessment Document 12/30/16 22:08 FC (Rec: 12/30/16 22:08 FC [email or web address]) Pain Reassessment Is this a pain reassessment? No Sleep Is patient sleeping during reassessment? No Presence of Pain Presence of Pain Yes Pain Scale Used Pain Scale Used Numeric Location Pain Location Body Site Chest Abdomen Back Generalized Description Description Nausea Present Pain Behavior Facial Grimacing Aggravating Factors None Alleviating Factors/Management Medication Techniques Alleviating Factors Medication IVP Administration Document 12/30/16 22:08 FC (Rec: 12/30/16 22:08 FC [email or web address]) Charges for Administration # of IVP Administrations 1 Ondansetron HCl (Zofran Inj) 4 mg IVP Q4H PRN PRN Reason: Nausea/Vomiting Last Admin: 12/30/16 22:08 Dose: 4 MG IVP Administration Document 12/30/16 22:08 FC (Rec: 12/30/16 22:08 [email or web address]) Charges for Administration # of IVP Administrations 1 Pantoprazole Sodium (Protonix Inj) 40 mg IVP DAILY DO Discontinued Medications Sodium Chloride (Sodium Chloride 0.9%) 1,000 mls @ 999 mls/hr IV .Q1H1M STA Stop: 12/30/16 15:04 Last Admin: 12/30/16 14:10 Dose: 999 MLS/HR eMAR Start Stop Document 12/30/16 14:10 EQ (Rec: 12/30/16 14:10 EQ [id number]) Intravenous Solution Start Date 12/30/16 Start Time 14:10 Lactated Ringer's (Lactated Ringer's) 1,000 mls @ 250 mls/hr IV .Q4H DO Ketorolac Tromethamine (Toradol) 10 mg IVP STAT STA Stop: 12/30/16 13:55 Last Admin: 12/30/16 14:09 Dose: 10 MG IVP Administration Document 12/30/16 14:09 EQ (Rec: 12/30/16 14:09 EQ [id number]) Charges for Administration # of IVP Administrations 1 Morphine Sulfate (Morphine) 4 mg IVP STAT STA Stop: 12/30/16 15:35 Last Admin: 12/30/16 17:25 Dose: 4 MG MAR Pain Assessment Document 12/30/16 17:25 [facility] (Rec: 12/30/16 17:25 [id number][facility] Pain Reassessment Is this a pain reassessment? No IVP Administration Document 12/30/16 17:25 [facility] (Rec: 12/30/16 17:25 [id number]) Charges for Administration # of IVP Administrations 1 Ondansetron HCl (Zofran Inj) 4 mg IVP ONCE ONE Stop: 12/30/16 13:55 Last Admin: 12/30/16 14:09 Dose: 4 MG IVP Administration Document 12/30/16 14:09 EQ (Rec: 12/30/16 14:10 EQ [id number]) Charges for Administration # of IVP Administrations 1 Ondansetron HCl (Zofran Inj) Confirm Administered Dose 4 mg .ROUTE .STK-MED ONE Stop: 12/30/16 17:28 Last Admin: 12/30/16 17:39 Dose: 4 MG Disposition/Present on Arrival - Present on Arrival Any Indicators Present on Arrival: No History of DVT/PE: No History of Uncontrolled Diabetes: No Urinary Catheter: No History of Decub. Ulcer: No History Surgical Site Infection Following: None - Disposition Have Diagnosis and Disposition been Completed?: Yes Diagnosis: Intractable abdominal pain, Intractable vomiting with nausea Disposition: HOSPITALIZED Disposition Time: 20:08 Patient Problems: Current Active Problems Problem Status Diagnosed ACS (acute coronary syndrome) Acute Anemia Acute Chest pain Acute Thrombocytopenia Acute Condition: STABLE
[2016-12-30 14:11] LABS: ADD MANUAL DIFF? NO
[2016-12-30 14:14] LABS: BASO # 0.03 K/mm3 (0.0-2.0); BASO % 0.3 % (0.0-3.0); EOS % 0.3 % (1.5-5.0); GRAN # 8.99 (1.4-6.5); GRAN % 83.6 % (50.0-68.0); HEMATOCRIT 39.8 % (42.0-52.0); LYMPH # 1.4 (1.2-3.4); LYMPH % 12.8 % (22.0-35.0); MEAN CELL VOLUME 73.8 fL (80.0-105.0); MEAN CORPUSCULAR HEMOGLOBIN 26.7 pg (25.0-35.0); MEAN CORPUSCULAR HGB CONC 36.2 g/dl (31.0-37.0); MONO # 0.3 (0.1-0.6); PLATELET COUNT 177 10^3/uL (120.0-450.0); RED CELL DISTRIBUTION WIDTH 15.6 % (11.5-14.5); WHITE BLOOD COUNT 10.7 10^3/ul (4.5-11.0)
--- NOTE | 2016-12-30 14:22 | RAD ---
HISTORY: cp COMPARISON: 12/08/2016 FINDINGS: LUNGS: No active pulmonary disease. PLEURA: No significant pleural effusion identified, no pneumothorax apparent. CARDIOVASCULAR: Normal. OSSEOUS STRUCTURES: No significant abnormalities. VISUALIZED UPPER ABDOMEN: Normal. OTHER FINDINGS: None. IMPRESSION: No active disease.
[2016-12-30 14:23] LABS: ALKALINE PHOSPHATASE 96 U/L (38-133); ALT/SGPT 23 U/L (7-56); AST/SGOT 47 U/L (15-59); BLOOD UREA NITROGEN 13 mg/dL (7-21); CALCIUM 9.1 mg/dL (8.4-10.5); CARBON DIOXIDE 21 mmol/L (21-33); CHLORIDE 100 mmol/L (98-107); GFR AFRICAN-AMERICAN > 60; LIPASE 117 U/L (23-300); POTASSIUM 4.8 mmol/L (3.6-5.0); SODIUM 135 mmol/L (132-148); TOTAL PROTEIN 9.2 g/dL (5.8-8.3)
[2016-12-30 14:33] LABS: GLUCOSE,RANDOM 325 mg/dL (70-110)
[2016-12-30 14:34] LABS: TROPONIN I 0.02 ng/mL
[2016-12-30] MEDS ORDERED: Morphine 4 mg/ml ISec IVP STA (15:34)
[2016-12-30] MEDS ORDERED: Lactated Ringer's 1,000 ML IV SCH (21:00)
[2016-12-30 22:04] VITALS: BMI 25.7
[2016-12-30] MEDS: Morphine 2 mg/ml ISec IVP PRN (22:08)
[2016-12-30] MEDS: Lactated Ringer's 1,000 ML IV SCH (22:08)
--- NOTE | 2016-12-30 22:11 | CP.PCM.HP ---
Addendum entered and electronically signed by Puja Gabriel DO 12/30/16 23: 07: For low MCV will check iron studies. Original Note: <Puja Gabriel - Last Filed: 12/30/16 22:20> History of Present Illness - History of Present Illness History of Present Illness: This is a 41Y M with PMH of DM, Pancreatitis, Pancreatic cyst, Hep C, PUD who came to the ED with nausea, vomiting and abdominal pain x 2 days. He reports that since yesterday, he has vomited about 30 times. The vomit is yellow/green in color. He has had this happen before. The abdominal pain is described as an aching dull pain that is constant. It is diffuse, but worse in LLQ. He was recently admitted here one month ago for the same thing. He also states he is constipated, but had 3 BM yesterday. The patient also describes having some chest pain in the L side of his chest below the nipple. It is tender to palpation and is worse with deep breaths. It does not radiate. He denies CP, SOB , diarrhea, numbness/tingling, or vision changes. PMH: DM, Hep C (not treated), Pancreatitis, Pancreatic cyst (multiple- reports drainage of one), Peptic Ulcer Disease PSH: Pancreatic cyst removal (2015), Appendectomy s/p ruptured appendix (2008), Cholecystectomy Home meds: Humulin 70/30 40-60U BID, Pancrease enzymes All: Hair dye (rash) SH: Smokes 4 cigars daily, denies EtOH or drug use FH: Mom- bone cancer, Dad- MO ( at age 55) Present on Admission - Present on Admission Any Indicators Present on Admission: No Review of Systems - Review of Systems Review of Systems: As per HPI Past Patient History - Infectious Disease Hx of Infectious Diseases: None - Tetanus Immunizations Tetanus Immunization: Unknown - Past Medical History & Family History Past Medical History?: Yes - Past Social History Smoking Status: Light Smoker < 10 Cigarettes Daily - CARDIAC Hx Cardiac Disorders: Yes Hx Cardia Arrhythmia: Yes (bradycardia) Hx Hypercholesterolemia: Yes Hx Hypertension: Yes - PULMONARY Hx Respiratory Disorders: No - NEUROLOGICAL Hx Neurological Disorder: No - HEENT Hx HEENT Problems: Yes (blurry vision) - RENAL Hx Chronic Kidney Disease: Yes Hx Kidney Stones: Yes - ENDOCRINE/METABOLIC Hx Endocrine Disorders: Yes Hx Diabetes Mellitus Type 2: Yes - HEMATOLOGICAL/ONCOLOGICAL Hx Blood Disorders: Yes Hx Hepatitis C: Yes - INTEGUMENTARY Hx Dermatological Problems: No - MUSCULOSKELETAL/RHEUMATOLOGICAL Hx Falls: Yes - GASTROINTESTINAL Hx Gastrointestinal Disorders: Yes Hx Gastroesophageal Reflux: Yes - GENITOURINARY/GYNECOLOGICAL Hx Genitourinary Disorders: Yes Hx Urinary Tract Infection: Yes - PSYCHIATRIC Hx Substance Use: No - SURGICAL HISTORY Hx Surgeries: Yes Hx Appendectomy: Yes Hx Cholecystectomy: Yes - ANESTHESIA Hx Anesthesia: Yes Hx Anesthesia Reactions: No Hx Malignant Hyperthermia: No Meds Allergies/Adverse Reactions: Allergies Allergy/AdvReac Type Severity Reaction Status Date / Time dy Allergy Mild ITCHING Uncoded 12/08/16 16:30 hair color dye Allergy RASH Uncoded 12/08/16 16:30 Physical Exam - Constitutional Appears: No Acute Distress - Head Exam Head Exam: ATRAUMATIC, NORMAL INSPECTION, NORMOCEPHALIC - Eye Exam Eye Exam: Normal appearance Pupil Exam: NORMAL ACCOMODATION - ENT Exam ENT Exam: Mucous Membranes Moist Additional comments: Slight droop of L nasolabial fold and lip - Neck Exam Neck exam: Positive for: Normal Inspection - Respiratory Exam Respiratory Exam: Chest Wall Tenderness (at L nipple ), Clear to Auscultation Bilateral, NORMAL BREATHING PATTERN. absent: Rales, Rhonchi, Wheezes - Cardiovascular Exam Cardiovascular Exam: REGULAR RHYTHM, +S1, +S2. absent: Diastolic murmur, Rubs, Systolic Murmur - GI/Abdominal Exam GI & Abdominal Exam: Hypoactive Bowel Sounds, Soft, Tenderness (diffuse tenderness- worse in LLQ ). absent: Mass, Rebound, Rigid - Extremities Exam Extremities exam: Positive for: normal inspection. Negative for: calf tenderness, pedal edema - Neurological Exam Neurological exam: Alert, CN II-XII Intact, Oriented x3 - Psychiatric Exam Psychiatric exam: Normal Affect, Normal Mood - Skin Skin Exam: Dry, Intact, Normal Color, Warm Results - Vital Signs Recent Vital Signs: Last Vital Signs Temp 98.6 F 12/30/16 21:54 Pulse 51 L 12/30/16 21:54 Resp 20 12/30/16 21:54 BP 155/76 H 12/30/16 21:54 Pulse Ox 98 12/30/16 20:35 - Labs Result Diagrams: 12/30/16 13:45 12/30/16 13:45 Labs: Laboratory Results - last 24 hr 12/30/16 20:22 Troponin I < 0.01 D Assessment & Plan - Assessment and Plan (Free Text) Assessment: This is a 41Y M with PMH of DM, Pancreatitis, Pancreatic cyst, Hep C, PUD admitted for pancreatitis. Plan: 1. Pancreatitis - NPO - LR@150 - Zofran prn - Protonix IV - Morphine prn pain 2. DM - Levemir 20U BID - ISS - BGM ACHS - Consider switching home insulin from 80-120U of 70/30 to Levemir 25U BID and Humulog 15U TID with meals for better glucose control as outpatient - HgbA1c last month was 13. 3. Hx of Peptic Ulcer Dx - IV protonix 4. Tobacco abuse - counseled patient on smoking cessation GI ppx: IV protonix DVT ppx: SCDs Case seen, reviewed and discussed with attending. Mark Gabriel PGY1 - Date & Time Date: 12/30/16 Time: 23:05 <[place] P - Last Filed: 01/08/17 20:18> Results - Vital Signs Recent Vital Signs: Last Vital Signs Temp 97.6 F 01/03/17 06:00 Pulse 57 L 01/03/17 14:00 Resp 20 01/03/17 06:00 BP 107/58 L 01/03/17 06:00 Pulse Ox 97 01/03/17 06:00 - Labs Result Diagrams: 01/03/17 05:30 01/03/17 05:30 Attending/Attestation - Attestation I have personally seen and examined this patient.: Yes I have fully participated in the care of the patient.: Yes I have reviewed all pertinent clinical information: Yes
[2016-12-30] MEDS: Insulin Reg-LOW-Coverage SC SCH (22:20)
[2016-12-30] MEDS ORDERED: DiphenhydrAMINE 50 mg/ml Inj IVP ONE (23:00)
[2016-12-31] MEDS: Morphine 2 mg/ml ISec IVP PRN ×6 (01:58→22:26)
[2016-12-31] MEDS: Insulin Reg-LOW-Coverage SC SCH ×4 (04:30→22:00)
[2016-12-31] MEDS: Lactated Ringer's 1,000 ML IV SCH ×3 (04:51→22:29)
[2016-12-31 09:39] LABS: ADD MANUAL DIFF? NO
[2016-12-31 09:44] LABS: BASO # 0.03 K/mm3 (0.0-2.0); BASO % 0.5 % (0.0-3.0); EOS # 0.1 (0.0-0.7); GRAN # 3.42 (1.4-6.5); GRAN % 59.7 % (50.0-68.0); HEMATOCRIT 34.7 % (42.0-52.0); LYMPH # 1.9 (1.2-3.4); LYMPH % 32.2 % (22.0-35.0); MEAN CELL VOLUME 75.3 fL (80.0-105.0); MEAN CORPUSCULAR HEMOGLOBIN 25.4 pg (25.0-35.0); MEAN CORPUSCULAR HGB CONC 33.7 g/dl (31.0-37.0); MEAN PLATELET VOLUME 11.4 fl (7.0-11.0); MONO # 0.4 (0.1-0.6); MONO % 6.6 % (1.0-6.0); PLATELET COUNT 128 10^3/uL (120.0-450.0); RED CELL DISTRIBUTION WIDTH 15.8 % (11.5-14.5); WHITE BLOOD COUNT 5.7 10^3/ul (4.5-11.0)
[2016-12-31 09:52] LABS: INR 1.06 (0.93-1.08)
[2016-12-31 09:53] LABS: ALKALINE PHOSPHATASE 60 U/L (38-133); ALT/SGPT 34 U/L (7-56); AST/SGOT 21 U/L (15-59); BILIRUBIN,TOTAL 0.9 mg/dL (0.2-1.3); BLOOD UREA NITROGEN 15 mg/dL (7-21); CALCIUM 8.3 mg/dL (8.4-10.5); CARBON DIOXIDE 25 mmol/L (21-33); CHLORIDE 102 mmol/L (95-110); GFR AFRICAN-AMERICAN > 60; GLUCOSE,RANDOM 238 mg/dL (70-110); POTASSIUM 3.8 mmol/L (3.6-5.0); SODIUM 136 mmol/L (132-148); TOTAL PROTEIN 6.4 g/dL (5.8-8.3)
[2016-12-31] MEDS: Insulin Detemir 100 units/ml Vial (Levemir) SC SCH ×2 (09:56→17:31)
[2016-12-31 10:06] LABS: TROPONIN I < 0.01 ng/mL
--- NOTE | 2016-12-31 11:22 | CARD ---
APPROVED REPORT EKG Measurement Heart [id number] <Conclusion> Marked sinus bradycardia Left axis deviation Possible septal RI, old No change
[2016-12-31 11:46] LABS: CHOLESTEROL 121 mg/dL (130-200)
--- NOTE | 2016-12-31 12:43 | CON ---
DATE: 12/31/2016 HISTORY OF PRESENT ILLNESS: I examined the patient this morning. 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 The patient, since last seen by this revenue cycle consultant, underwent cholecystectomy as well as pancreatic resection, the degree of which is unclear, at [facility]. The patient presents today with complaints of chest pain, nausea and vomiting for several days, as well as abdominal pain. He indicates that the chest discomfort is located on the left lower part of the parasternal area. Also complaining about discomfort in the periumbilical area above the umbilicus, as well as the left lower quadrant. No complaints of hematemesis or rectal bleeding. He did indicate that his stools have been extremely hard and considerable straining experience with bowel movements. He has restricted diet due to pancreatitis issues, finding it difficult to find food to eat that he can handle. PHYSICAL EXAMINATION: VITAL SIGNS: I reviewed this patient's vital signs. HEENT: Significant for dry mouth. LUNGS: Decreased breath sounds at bases bilaterally. HEART: Irregular rhythm. ABDOMEN: Significant for tenderness in the epigastric area and left upper quadrant. He is also tender in the periumbilical area above the umbilicus. Also over the incisional scars. Somewhat tender and there was a fullness in the area of the left paraumbilical and the left lower quadrant. He has an abdominal film pending for this morning. Chest x-ray did not reveal any active pulmonary disease and there was no pleural effusion noted. LABORATORY DATA: Significant for a white count of 10,000 on admission, subsequently decreased. He has some dilutional effect on his H and H. Chemistry is significant for elevated glucose, mildly elevated total bilirubin, normal LFTs. His triglycerides, which have been a problem for him in the past, current level of 438. In the past, they were much higher. 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 Since he has pain in so many areas, it is difficult for him to indicate which one is the major issue. At the current time point, there might be some issue of acid reflux, gastritis or esophagitis going on as well, especially in view of the fact that his last stress test less than a year ago was within normal limits. Currently he is on pantoprazole daily, is receiving lactated Ringer's and he has Zofran on board q. 4 hours. I think the medications at the current time point are reasonable. Would like to see the effect of medications over the next couple of days, especially with the lactated Ringer's at 150 an hour. By physical exam, patient is fluid depleted. Note that because of frequent straining at home, patient may have a fecal impaction which could be delineated better by abdominal films. This will be done at a time later on this afternoon. At the current time point, after review of the patient was done with the nurse on the floor, put the patient on n.p.o. with a very small volume of ice chips. Lucian Scott DO, PhD cc: [id number] TT: 12/31/2016 12:42:31 Confirmation # [id number] Dictation # [id number] luis WILLIAMSON
--- NOTE | 2016-12-31 15:20 | RAD ---
HISTORY: abdominal pain COMPARISON: Comparison made with CT scan of the abdomen pelvis dated 12/08/2016. InThe cyst FINDINGS: BOWEL: No evidence of free intraperitoneal air seen under the diaphragmatic surfaces. Multiple air-filled nondistended loops of small bowel of with air also seen in the large bowel. Findings may represent a nonspecific ileus. No evidence to suggest obstruction. Metallic clips in the right upper quadrant of the abdomen consistent with prior cholecystectomy. Another a metallic clip wall seen in the left parasagittal upper abdomen. BONES: Mild levoscoliosis. OTHER FINDINGS: None. IMPRESSION: Findings consistent with mild ileus. No evidence of acute mechanical bowel obstruction. Status post cholecystectomy.
--- NOTE | 2016-12-31 15:46 | CP.PCM.PN ---
<Darnell Bruner - Last Filed: 12/31/16 15:42> Subjective - Date & Time of Evaluation Date of Evaluation: 12/31/16 Time of Evaluation: 10:00 - Subjective Subjective: Dr. Bruner PGY 1 Hospitalist Note Patient seen and evaluated at bedside. He continues to complain of epigastric pain and right upper quadrant pain. He began complaining of left sided chest pain and neck pain. The pain can be reproduced by pressing between ribs 5 and 6. He denied any SOB, palpitations, fever, or chills ,but continues to complain of nausea but has not vomited. He says he had a stress test 1 year ago prior to surgery on his pancreas. He requests ice chips as his mouth is dry. Per nursing , no adverse events over night. Objective - Vital Signs/Intake and Output Vital Signs (last 24 hours): Temp Pulse Resp BP Pulse Ox 97.7 F 67 20 111/64 97 12/31/16 06:00 12/31/16 06:00 12/31/16 06:00 12/31/16 06:00 12/31/16 06:00 - Medications Medications: Current Medications Lactated Ringer's (Lactated Ringer's) 1,000 mls @ 150 mls/hr IV .Q6H40M [facility] Last Admin: 12/31/16 14:27 Dose: 150 mls/hr Insulin Detemir (Levemir) 20 unit SC BID [facility] Last Admin: 12/31/16 09:56 Dose: 20 unit Insulin Human Regular (Humulin R Low) 0 units SC Q6H DO PRN Reason: Protocol Last Admin: 12/31/16 09:55 Dose: 1 units Morphine Sulfate (Morphine) 2 mg IVP Q4H PRN PRN Reason: Pain, severe (8-10) Last Admin: 12/31/16 14:27 Dose: 2 mg Ondansetron HCl (Zofran Inj) 4 mg IVP Q4H PRN PRN Reason: Nausea/Vomiting Last Admin: 12/31/16 14:27 Dose: 4 mg Pantoprazole Sodium (Protonix Inj) 40 mg IVP DAILY [facility] Last Admin: 12/31/16 09:57 Dose: 40 mg - Labs Labs: PT 11.5 Seconds (9.9-11.8) 12/31/16 09:38 INR 1.06 (0.93-1.08) 12/31/16 09:38 - Constitutional Appears: Non-toxic, No Acute Distress, Older Than Stated Age - Head Exam Head Exam: ATRAUMATIC, NORMOCEPHALIC - Eye Exam Eye Exam: EOMI, Normal appearance, PERRL Pupil Exam: NORMAL ACCOMODATION, PERRL - ENT Exam ENT Exam: Mucous Membranes Dry, Normal Oropharynx - Neck Exam Neck Exam: Full ROM, Normal Inspection. absent: Tenderness - Respiratory Exam Respiratory Exam: Chest Wall Tenderness, Clear to Ausculation Bilateral, NORMAL BREATHING PATTERN. absent: Rales, Rhonchi, Wheezes - Cardiovascular Exam Cardiovascular Exam: Bradycardia, +S1, +S2. absent: Gallop, Rubs, Murmur - GI/Abdominal Exam GI & Abdominal Exam: Soft, Tenderness (epigastric and RUQ). absent: Distended, Guarding - Extremities Exam Extremities Exam: Normal Capillary Refill, Normal Inspection. absent: Pedal Edema, Tenderness - Back Exam Back Exam: NORMAL INSPECTION. absent: rash noted, tenderness - Neurological Exam Neurological Exam: Alert, Awake, CN II-XII Intact, Oriented x3 - Psychiatric Exam Psychiatric exam: Normal Affect, Normal Mood - Skin Skin Exam: Dry, Intact, Normal Color, Warm Assessment and Plan - Assessment and Plan (Free Text) Assessment: 41 y/o M with PMH of DM, Pancreatitis, Pancreatic cyst, Hep C, PUD admitted for abdominal pain. Developed left sided chest pain radiating in the neck. Plan: 1. Abdominal Pain * Likely due to pancreatitis * GI consulted, help appreciated * Keep NPO and advance diet as per GI recs * Continue LR@150 * Abdominal xray showed findings consitent with mild ileus, no evidence of bowel obstruction [see full report] * Continue Protonix IV * Zofran for nausea * Morphine 2Q4 PRN pain 2) Chest Pain * Cardiology consulted, help appreciated * Patient reportedly had stress test 1 year ago * cardiac enzymes negative x3 * Initial EKG sinus bradycardia, left axis deviation, possible old septal PA * Repeat EKG showed sinus bradycardia, no change * Chest x-ray showed no active disease process * continue to monitor 3). DM * Levemir 20U BID * ISS * Regular accuchecks ACHS * HgbA1c last month was 13. 4). Hx of Peptic Ulcer Dx * IV protonix 5). Tobacco abuse * counseled patient on smoking cessation GI ppx: IV protonix DVT ppx: SCDs Case seen, reviewed and discussed with attending. <Mohit Lackey - Last Filed: 12/31/16 17:06> Objective - Vital Signs/Intake and Output Vital Signs (last 24 hours): Temp Pulse Resp BP Pulse Ox 97.7 F 67 20 111/64 97 12/31/16 06:00 12/31/16 06:00 12/31/16 06:00 12/31/16 06:00 12/31/16 06:00 - Medications Medications: Current Medications Lactated Ringer's (Lactated Ringer's) 1,000 mls @ 150 mls/hr IV .Q6H40M [facility] Last Admin: 12/31/16 14:27 Dose: 150 mls/hr Insulin Detemir (Levemir) 20 unit SC BID [facility] Last Admin: 12/31/16 09:56 Dose: 20 unit Insulin Human Regular (Humulin R Low) 0 units SC Q6H DO PRN Reason: Protocol Last Admin: 12/31/16 16:23 Dose: 1 units Morphine Sulfate (Morphine) 2 mg IVP Q4H PRN PRN Reason: Pain, severe (8-10) Last Admin: 12/31/16 14:27 Dose: 2 mg Ondansetron HCl (Zofran Inj) 4 mg IVP Q4H PRN PRN Reason: Nausea/Vomiting Last Admin: 12/31/16 14:27 Dose: 4 mg Pantoprazole Sodium (Protonix Inj) 40 mg IVP DAILY [facility] Last Admin: 12/31/16 09:57 Dose: 40 mg - Labs Labs: PT 11.5 Seconds (9.9-11.8) 12/31/16 09:38 INR 1.06 (0.93-1.08) 12/31/16 09:38 Attending/Attestation - Attestation I have personally seen and examined this patient.: Yes I have fully participated in the care of the patient.: Yes I have reviewed all pertinent clinical information, including history, physical exam and plan: Yes Notes (Text): 12/31/16 16:59 41 year old male with past medical history of diabetes, pancreatitis, pancreatic cyst, hepatitis C and PUD who presented with complaint of abdominal pain and vomiting possibly due to pancreatitis vs PUD. He is NPO on iv fluids, protonix, antiemetics and analgesics. GI evaluation was appreciated and abdominal xray was ordered which showed mild ileus without evidence of bowel obstruction. He also complains of left sided chest pain. Serial cardiac enzymes x3 are negative. EKG shows sinus bradycardia with no acute changes. He reports he had a negative stress test last year. Cardiology evaluation is requested. He is on insulin ss and levemir for diabetes. He was counselled on smoking abstinence. Mohit Lackey MD Hospitalist.
[2017-01-01] MEDS: Morphine 2 mg/ml ISec IVP PRN ×4 (03:47→21:40)
[2017-01-01] MEDS: Insulin Reg-LOW-Coverage SC SCH ×4 (03:58→21:44)
[2017-01-01] MEDS: Lactated Ringer's 1,000 ML IV SCH ×3 (05:26→20:00)
[2017-01-01 07:57] LABS: ADD MANUAL DIFF? NO
[2017-01-01 08:02] LABS: BASO # 0.04 K/mm3 (0.0-2.0); BASO % 0.8 % (0.0-3.0); EOS # 0.1 (0.0-0.7); GRAN # 3.16 (1.4-6.5); GRAN % 64.7 % (50.0-68.0); HEMATOCRIT 34.9 % (42.0-52.0); LYMPH # 1.4 (1.2-3.4); LYMPH % 28.6 % (22.0-35.0); MEAN CELL VOLUME 75.1 fL (80.0-105.0); MEAN CORPUSCULAR HGB CONC 34.7 g/dl (31.0-37.0); MEAN PLATELET VOLUME 10.9 fl (7.0-11.0); MONO # 0.2 (0.1-0.6); MONO % 4.9 % (1.0-6.0); PLATELET COUNT 125 10^3/uL (120.0-450.0); RED CELL DISTRIBUTION WIDTH 15.8 % (11.5-14.5); WHITE BLOOD COUNT 4.9 10^3/ul (4.5-11.0)
[2017-01-01 08:10] LABS: INR 1.05 (0.93-1.08)
[2017-01-01 08:41] LABS: ALKALINE PHOSPHATASE 53 U/L (38-133); ALT/SGPT 38 U/L (7-56); AST/SGOT 26 U/L (15-59); BILIRUBIN,TOTAL 0.8 mg/dL (0.2-1.3); BLOOD UREA NITROGEN 9 mg/dL (7-21); CALCIUM 8.5 mg/dL (8.4-10.5); CARBON DIOXIDE 26 mmol/L (21-33); CHLORIDE 102 mmol/L (98-107); GFR AFRICAN-AMERICAN > 60; GLUCOSE,RANDOM 92 mg/dL (70-110); POTASSIUM 3.3 mmol/L (3.6-5.0); SODIUM 136 mmol/L (132-148); TOTAL PROTEIN 6.6 g/dL (5.8-8.3)
--- NOTE | 2017-01-01 08:51 | PN ---
DATE: 01/01/2017 I examined the patient this morning. 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 The patient admitted with complaints of anterior chest pain increased with deep breathing, as well as abdominal pain. The patient indicated this morning still residual of chest pain noted. Abdominal pain has come under better control - current regimen including IV fluids. The patient noted for the first time today some burning with urination. Note that every time I walk in the room, the patient comes up with a different complaint. PHYSICAL EXAMINATION: VITAL SIGNS: I reviewed this patient's vital signs. LUNGS: Significant for decreased breath sounds bilaterally at the bases. HEART: Irregular rhythm. ABDOMEN: Soft, mildly tender in the periumbilical, as well as the left upper quadrant and left paraumbilical. MUSCULOSKELETAL: Significant for tenderness experienced over the pectoralis on the left side, that is, deep palpation of the left parasternal going up to the acromion on the left side reproduces the anterior chest pain. Therefore, most likely musculoskeletal rather than anything else. I reviewed all the respective notes so far for this patient. OVERALL ASSESSMENT: This is a 41-year-old male with history of pseudocyst and pancreatitis, admitted for complaints of abdominal pain. Symptoms resolving with current regimen, which includes IV fluids at the rate of 150, control of his diabetes, as well as Zofran and pantoprazole. The patient requested a CT document status of his pseudocyst. I will leave that up to the house staff physician to decide if that is appropriate at this particular time point. Would not make any change in his therapeutic regimen. I did suggest to possibly try and advance diet to clear liquids today. If the patient is not going to CT some time later on this morning, we can consider advancing to small portions of a clear liquid diet. Lucian Scott DO, PhD cc: [id number] TT: 01/01/2017 08:50:35 Confirmation # [id number] Dictation # [id number] jn TERI
[2017-01-01 09:28] LABS: PH,URINE 7.5 (4.7-8.0); URINE BILIRUBIN NEGATIVE (NEGATIVE); URINE BLOOD NEGATIVE (NEGATIVE); URINE GLUCOSE (UA) NEGATIVE (NEGATIVE); URINE KETONE 15 mg/dL (NEGATIVE); URINE LEUKOCYTE ESTERASE NEGATIVE Leu/uL (NEGATIVE); URINE PROTEIN NEGATIVE mg/dL (<30 mg/dL)
[2017-01-01 09:31] LABS: URINE APPEARANCE CLEAR (CLEAR); URINE COLOR LIGHT YELLOW (YELLOW)
[2017-01-01] MEDS: Insulin Detemir 100 units/ml Vial (Levemir) SC SCH ×2 (09:36→17:49)
[2017-01-01] MEDS: Potassium Chloride 20 mEq 100 ML IVPB SCH ×2 (09:37→12:14)
--- NOTE | 2017-01-01 09:38 | CARD ---
APPROVED REPORT EKG Measurement Heart [id number] ND [id number] <Conclusion> Sinus bradycardia LAD No change
--- NOTE | 2017-01-01 10:41 | CON ---
DATE: 01/01/2017 CONSULTATION INDICATIONS: Chest pain. HISTORY OF PRESENT ILLNESS: This is a 41-year-old male cigar-smoker, admitted with chest pain, which was left-sided in the nipple area associated with tenderness to touch. He also had diffuse abdominal pain, nausea, and vomiting. He has a longstanding history of pancreatic disease with pancreatitis and pancreatic pseudocyst with several pancreatic operations. He has had many hospitalizations often for nausea and vomiting. He had a stress test about a year ago, probably in his physician's office, which was apparently unremarkable. Chest pain is a tender area in the left inframammary area. It is tender to touch. He also describes abdominal pain in several locations. This has improved since admission and being n.p.o. There is no shortness of breath, orthopnea, PND, syncope, presyncope, lightheadedness, dizziness, vertigo, palpitations, edema, claudication, fever, chills, cough, sputum-production or hemoptysis. PAST MEDICAL HISTORY: Notable for diabetes, pancreatitis, which is recurrent, pseudocyst, and surgery for pancreatitis and infected pseudocyst. He has had gallbladder surgery and an appendectomy, hypertension, hepatitis C. There is no history of rheumatic fever, myocardial infarction, angina, congestive heart failure, arrhythmia, stroke, TIA, or gout. MEDICATIONS: At the time of admission included Lopid, Neurontin, insulin, pancrease, Percocet. ALLERGIES: There are no medication allergies reported. SOCIAL HISTORY: He lives at home. He smokes cigars, 5 or 6 per day, he states. He does not drink alcohol. FAMILY HISTORY: Notable for heart disease in his family. His father had a myocardial infarction and at 55. REVIEW OF SYSTEMS: Ten-point review of systems otherwise unremarkable except as noted above. PHYSICAL EXAMINATION: GENERAL: He is a well-developed male, lying in bed on 3R, in no acute distress. VITAL SIGNS: Unremarkable. He is in sinus bradycardia at 45-53 beats per minute. He is afebrile. Respirations 17, O2 sat 98% on room air, blood pressure 106/60. HEENT: Reveals no neck-vein distention, thyromegaly, or carotid bruits. Mucous membranes are moist. Conjunctivae are pink. NECK: Supple. LUNGS: Lung grace are clear. HEART: Revealed normal first and second heart sounds without murmur, gallop, rub, or click. The PMI is not displaced. There is tenderness in the left nipple area. ABDOMEN: Soft. There are multiple scars. Bowel sounds are present. There is no rebound or guarding. No CVA tenderness. No palpable abdominal aortic aneurysm. EXTREMITIES: Revealed no cyanosis, clubbing, or edema. NEUROLOGIC: He was awake, alert, and oriented. SKIN: Warm and dry. No rash or cellulitis. PSYCHIATRIC: Normal as to mood and affect. LABORATORY AND IMAGING: A portable chest x-ray revealed no active disease. EKG demonstrates sinus bradycardia at 45 beats per minute, left axis deviation, possible anterior septal myocardial infarction, basically unchanged from a prior EKG. White count normal. Hemoglobin 12.1, hematocrit 34.9, platelet count normal. PT/INR normal. Initial electrolytes, BUN, creatinine unremarkable. Blood sugars in the 200-300 range. LFTs notable for bilirubin of 2.0, repeat 0.9. ALT/AST normal. Troponins all negative. Triglycerides 438, cholesterol 121, LDL less than 30, HDL 18, lipase 117. IMPRESSION: The patient is a 41-year-old man with hyperlipidemia, admitted with atypical chest pain, probably not cardiac in nature with no evidence of myocardial infarction by serial troponins. His EKG is abnormal with bradycardia and a possible anterior septal myocardial infarction, but this is unchanged from a previous EKG. He had nausea and vomiting, which has resolved with n.p.o. status and IV fluids. He is undergoing a gastrointestinal evaluation. He is getting insulin, Protonix, Zofran p.r.n. I have ordered an echocardiogram. I will repeat his EKG today. I's and O's should be monitored. Check stool for occult blood. I will follow along with you. I will make additional recommendations based on his clinical course. Roe Nation MD cc: [id number] TT: 01/01/2017 10:40:28 Confirmation # [id number] Dictation # [id number] jn TERI
--- NOTE | 2017-01-01 13:50 | CP.PCM.PN ---
<Catrina Vazquez - Last Filed: 01/01/17 15:11> Subjective - Date & Time of Evaluation Date of Evaluation: 01/01/17 Time of Evaluation: 09:00 - Subjective Subjective: Hospitalist Note Patient seen and evaluated at bedside. C/o chest pain, though improved. Per nursing, overnight pt had c/o burning upon urination, so Ucx and UA were ordered. Afebrile overnight. Objective - Vital Signs/Intake and Output Vital Signs (last 24 hours): Temp Pulse Resp BP Pulse Ox 97.7 F 50 L 17 106/60 98 01/01/17 00:00 01/01/17 06:00 01/01/17 00:00 01/01/17 00:00 01/01/17 00:00 Intake and Output: 01/01/17 01/01/17 06:59 18:59 Intake Total 1450 760 Balance 1450 760 - Medications Medications: Current Medications Lactated Ringer's (Lactated Ringer's) 1,000 mls @ 150 mls/hr IV .Q6H40M [facility] Last Admin: 01/01/17 12:14 Dose: 150 mls/hr Insulin Detemir (Levemir) 20 unit SC BID [facility] Last Admin: 01/01/17 09:36 Dose: 20 unit Insulin Human Regular (Humulin R Low) 0 units SC ACHS [facility] PRN Reason: Protocol Morphine Sulfate (Morphine) 2 mg IVP Q4H PRN PRN Reason: Pain, severe (8-10) Last Admin: 01/01/17 07:58 Dose: 2 mg Ondansetron HCl (Zofran Inj) 4 mg IVP Q4H PRN PRN Reason: Nausea/Vomiting Last Admin: 12/31/16 20:41 Dose: 4 mg Pantoprazole Sodium (Protonix Inj) 40 mg IVP DAILY [facility] Last Admin: 01/01/17 09:43 Dose: 40 mg - Labs Labs: 01/01/17 07:40 01/01/17 07:40 PT 11.3 Seconds (9.9-11.8) 01/01/17 07:40 INR 1.05 (0.93-1.08) 01/01/17 07:40 - Additional Findings Additional findings: - Constitutional Appears: Non-toxic, No Acute Distress - Head Exam Head Exam: ATRAUMATIC, NORMOCEPHALIC - Eye Exam Eye Exam: EOMI, PERRL - ENT Exam ENT Exam: Mucous Membranes Dry, Normal Oropharynx - Neck Exam Neck Exam: Full ROM, Normal Inspection. absent: Tenderness - Respiratory Exam Respiratory Exam: Chest Wall Tenderness, Clear to Ausculation Bilateral, NORMAL BREATHING PATTERN. absent: Rales, Rhonchi, Wheezes - Cardiovascular Exam Cardiovascular Exam: Bradycardia, +S1, +S2. absent: Gallop, Rubs, Murmur - GI/Abdominal Exam GI & Abdominal Exam: Soft, non- Tenderness. absent: Distended, Guarding - Extremities Exam Extremities Exam: Normal Capillary Refill, Normal Inspection. absent: Pedal Edema, Tenderness - Back Exam Back Exam: NORMAL INSPECTION. absent: rash noted, tenderness - Neurological Exam Neurological Exam: Alert, Oriented x3 - Psychiatric Exam Psychiatric exam: Normal Affect, Normal Mood - Skin Skin Exam: Dry, Intact, Normal Color, Warm Assessment and Plan - Assessment and Plan (Free Text) Plan: 41 y/o M with PMH of DM, Pancreatitis, Pancreatic cyst, Hep C, PUD admitted for abdominal pain. Developed left sided chest pain radiating in the neck. Plan: 1. Abdominal Pain * Likely due to pancreatitis * GI consulted, help appreciated * CLD and advance diet as per GI recs * Continue LR@150 * Abdominal xray showed findings consistent with mild ileus, no evidence of bowel obstruction [see full report] * Continue Protonix IV * Zofran for nausea * Morphine 2Q4 PRN pain 2) Chest Pain * Cardiology consulted, help appreciated * Patient reportedly had stress test 1 year ago * cardiac enzymes negative x3 * Initial EKG sinus bradycardia, left axis deviation, possible old septal UT * Repeat EKG showed sinus bradycardia, no change * Chest x-ray showed no active disease process * continue to monitor * ECHO ordered 3). DM * Levemir 20U BID * ISS * Regular accuchecks ACHS * HgbA1c last month was 13. 4). Hx of Peptic Ulcer Dx * IV protonix 5). Tobacco abuse * counseled patient on smoking cessation 6) Dysuria f/u ordered U c and S GI ppx: IV protonix DVT ppx: SCDs Case seen, reviewed and discussed with attending. <Mohit Lackey - Last Filed: 01/01/17 15:31> Objective - Vital Signs/Intake and Output Vital Signs (last 24 hours): Temp Pulse Resp BP Pulse Ox 97.7 F 50 L 17 106/60 98 01/01/17 00:00 01/01/17 06:00 01/01/17 00:00 01/01/17 00:00 01/01/17 00:00 Intake and Output: 01/01/17 01/01/17 06:59 18:59 Intake Total 1450 760 Balance 1450 760 - Medications Medications: Current Medications Lactated Ringer's (Lactated Ringer's) 1,000 mls @ 150 mls/hr IV .Q6H40M [facility] Last Admin: 01/01/17 12:14 Dose: 150 mls/hr Insulin Detemir (Levemir) 20 unit SC BID [facility] Last Admin: 01/01/17 09:36 Dose: 20 unit Insulin Human Regular (Humulin R Low) 0 units SC ACHS [facility] PRN Reason: Protocol Morphine Sulfate (Morphine) 2 mg IVP Q4H PRN PRN Reason: Pain, severe (8-10) Last Admin: 01/01/17 14:53 Dose: 2 mg Ondansetron HCl (Zofran Inj) 4 mg IVP Q4H PRN PRN Reason: Nausea/Vomiting Last Admin: 12/31/16 20:41 Dose: 4 mg Pantoprazole Sodium (Protonix Inj) 40 mg IVP DAILY [facility] Last Admin: 01/01/17 09:43 Dose: 40 mg - Labs Labs: 01/01/17 07:40 01/01/17 07:40 PT 11.3 Seconds (9.9-11.8) 01/01/17 07:40 INR 1.05 (0.93-1.08) 01/01/17 07:40 Attending/Attestation - Attestation I have personally seen and examined this patient.: Yes I have fully participated in the care of the patient.: Yes I have reviewed all pertinent clinical information, including history, physical exam and plan: Yes Notes (Text): 01/01/17 15:28 41 year old male with past medical history of diabetes, pancreatitis, pancreatic cyst, hepatitis C and PUD who presented with complaint of abdominal pain and chest pain both which are improving today. GI and cardiology evaluation were appreciated. Will advance his diet to clear liquid diet as tolerated. Continue with iv fluids, antiemetics and protonix. AXR showed mild ileus without evidence of bowel obstruction. Serial cardiac enzymes were negative and echocardiogram is ordered. He is on insulin ss and levemir for diabetes. He was counselled on smoking abstinence. Will replete and repeat potassium for hypokalemia. Mohit Lackey MD Hospitalist.
[2017-01-02] MEDS: Morphine 2 mg/ml ISec IVP PRN ×5 (02:31→21:59)
[2017-01-02] MEDS: Lactated Ringer's 1,000 ML IV SCH ×2 (02:33→22:00)
--- NOTE | 2017-01-02 06:00 | PN ---
DATE: 01/02/2017 SUBJECTIVE: I examined the patient this morning. 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 The patient was admitted with exacerbation of pancreatitis with abdominal pain, nausea, and vomiting, as well as chest pain. Abdominal pain has dissipated to a significant extent on current therapeutic regimen. He is currently on a liquid diet and handling that fairly well. Still experiencing chest pain on the left side. PHYSICAL EXAMINATION: VITAL SIGNS: I reviewed this patient's vital signs. HEENT: Noncontributory. LUNGS: Decreased breath sounds basilar. HEART: Regular rhythm. ABDOMEN: Significant for very mild tenderness in the area of the right upper quadrant, left upper quadrant. The abdomen is not distended. MUSCULOSKELETAL: Tenderness elicited on palpation parasternally over the left pectoralis extending up to the acromion the left side. OVERALL ASSESSMENT: This is a patient with pancreatitis history with pseudocysts, admitted for exacerbation of the latter. The patient has improved dramatically over the past couple of days. He requested a CT evaluation to check on the progress and status of his pancreas at the current time. I am not sure if this is going to be ordered by the house staff. He will talk to the house staff about the CT of the abdomen and pelvis later on this morning when they come in. I would continue on the current therapeutic regimen because he is improving as we speak. The patient has residual chest discomfort, probably on a musculoskeletal basis. Again, this can be reproduced by palpation parasternally on the left side over the left pectoralis. The patient is currently on a liquid diet. Advance diet as per house staff. Lucian Scott DO, PhD cc: [id number] TT: 01/02/2017 06:00:01 Confirmation # [id number] Dictation # [id number] maegan WILLIAMSON
[2017-01-02 07:05] LABS: ADD MANUAL DIFF? NO
[2017-01-02 07:16] LABS: BASO # 0.02 K/mm3 (0.0-2.0); BASO % 0.6 % (0.0-3.0); EOS # 0.1 (0.0-0.7); EOS % 3.1 % (1.5-5.0); GRAN # 1.56 (1.4-6.5); GRAN % 44.1 % (50.0-68.0); HEMATOCRIT 34.8 % (42.0-52.0); LYMPH # 1.6 (1.2-3.4); LYMPH % 44.8 % (22.0-35.0); MEAN CELL VOLUME 75.2 fL (80.0-105.0); MEAN CORPUSCULAR HEMOGLOBIN 25.5 pg (25.0-35.0); MEAN CORPUSCULAR HGB CONC 33.9 g/dl (31.0-37.0); MEAN PLATELET VOLUME 11.5 fl (7.0-11.0); MONO # 0.3 (0.1-0.6); MONO % 7.4 % (1.0-6.0); PLATELET COUNT 119 10^3/uL (120.0-450.0); RED CELL DISTRIBUTION WIDTH 15.7 % (11.5-14.5); WHITE BLOOD COUNT 3.5 10^3/ul (4.5-11.0)
[2017-01-02 07:26] LABS: INR 1.11 (0.93-1.08)
[2017-01-02 07:37] LABS: ALKALINE PHOSPHATASE 49 U/L (38-133); ALT/SGPT 39 U/L (7-56); AST/SGOT 25 U/L (15-59); BILIRUBIN,TOTAL 0.7 mg/dL (0.2-1.3); BLOOD UREA NITROGEN 5 mg/dL (7-21); CALCIUM 8.6 mg/dL (8.4-10.5); CHLORIDE 102 mmol/L (98-107); GFR AFRICAN-AMERICAN > 60; GLUCOSE,RANDOM 88 mg/dL (70-110); POTASSIUM 3.6 mmol/L (3.6-5.0); SODIUM 137 mmol/L (132-148)
[2017-01-02 07:39] LABS: CARBON DIOXIDE 29 mmol/L (21-33); TOTAL PROTEIN 6.3 g/dL (5.8-8.3)
--- NOTE | 2017-01-02 07:59 | CP.PCM.PN ---
Subjective - Date & Time of Evaluation Date of Evaluation: 01/02/17 Time of Evaluation: 08:00 - Subjective Subjective: Stable on 3R. The left sided chest pain is better. No SOB. The abd. pain is better. V/S noted PE: Lungs: clear Cor.: S1S2 Abd.: soft Ext.: no edema Neuro.: alert ECG 01/01: Sinus Claudy., otherwise nl. Labs noted. Objective - Vital Signs/Intake and Output Vital Signs (last 24 hours): Temp Pulse Resp BP Pulse Ox 97.7 F 50 L 17 106/60 98 01/01/17 00:00 01/01/17 06:00 01/01/17 00:00 01/01/17 00:00 01/01/17 00:00 Intake and Output: 01/02/17 01/02/17 06:59 18:59 Intake Total 840 Balance 840 - Medications Medications: Current Medications Lactated Ringer's (Lactated Ringer's) 1,000 mls @ 150 mls/hr IV .Q6H40M [facility] Last Admin: 01/02/17 02:33 Dose: 150 mls/hr Insulin Detemir (Levemir) 20 unit SC BID [facility] Last Admin: 01/01/17 17:49 Dose: 20 unit Insulin Human Regular (Humulin R Low) 0 units SC ACHS [facility] PRN Reason: Protocol Last Admin: 01/01/17 21:44 Dose: Not Given Morphine Sulfate (Morphine) 2 mg IVP Q4H PRN PRN Reason: Pain, severe (8-10) Last Admin: 01/02/17 07:23 Dose: 2 mg Ondansetron HCl (Zofran Inj) 4 mg IVP Q4H PRN PRN Reason: Nausea/Vomiting Last Admin: 12/31/16 20:41 Dose: 4 mg Pantoprazole Sodium (Protonix Inj) 40 mg IVP DAILY [facility] Last Admin: 01/01/17 09:43 Dose: 40 mg - Labs Labs: 01/02/17 06:45 01/02/17 06:45 PT 12.0 Seconds (9.9-11.8) H 01/02/17 06:45 INR 1.11 (0.93-1.08) H 01/02/17 06:45 Assessment and Plan - Assessment and Plan (Free Text) Plan: Assessment: Atypical left sided chest pain Abd. pain/recurrent pancreatitis Chronic pancreatitis with pseudocysts and prior surgeries HBP Diabetes Hep. C GB surgery, appendectomy Cigar smoker Plan: Check echo As per GI and medical team D/C tobacco
[2017-01-02 08:37] VITALS: TEMP 97.6
[2017-01-02] MEDS: Insulin Reg-LOW-Coverage SC SCH ×4 (09:11→21:37)
[2017-01-02] MEDS: Insulin Detemir 100 units/ml Vial (Levemir) SC SCH ×2 (09:15→16:59)
--- NOTE | 2017-01-02 09:27 | CARD ---
APPROVED REPORT EKG Measurement Heart [id number] TN 180P63 [id number] <Conclusion> Sinus bradycardia LAD No change
[2017-01-02] MEDS: Amylase/Lipase/Protease 5,000 U ECC PO SCH ×2 (12:30→16:59)
--- NOTE | 2017-01-02 19:39 | CP.PCM.PN ---
<Darnell Bruner - Last Filed: 01/02/17 19:34> Subjective - Date & Time of Evaluation Date of Evaluation: 01/02/17 Time of Evaluation: 07:40 - Subjective Subjective: Dr. Bruner PGY 1 Hospitalist Note Patient seen and evaluated at bedside. He reports his abdominal and chest pain improving. He notes some watery stool which he attributes to fluid hydration and fluid diet. He requests advancing his diet. He denies any fever, chills, nausea, vomiting, chest pain, or headache. He states he feels he is improving. Objective - Vital Signs/Intake and Output Vital Signs (last 24 hours): Temp Pulse Resp BP Pulse Ox 97.6 F 43 L 17 125/79 98 01/02/17 06:00 01/02/17 18:00 01/02/17 06:00 01/02/17 06:00 01/02/17 06:00 Intake and Output: 01/02/17 01/03/17 18:59 06:59 Intake Total 820 Balance 820 - Medications Medications: Current Medications Amylase (Pancrease 74442 U-5000 U-95564 U) 25,000 u PO WM [facility] Last Admin: 01/02/17 16:59 Dose: 25,000 u Lactated Ringer's (Lactated Ringer's) 1,000 mls @ 100 mls/hr IV .Q10H [facility] Insulin Detemir (Levemir) 20 unit SC BID [facility] Last Admin: 01/02/17 16:59 Dose: 20 unit Insulin Human Regular (Humulin R Low) 0 units SC ACHS [facility] PRN Reason: Protocol Last Admin: 01/02/17 16:04 Dose: 2 units Morphine Sulfate (Morphine) 2 mg IVP Q4H PRN PRN Reason: Pain, severe (8-10) Last Admin: 01/02/17 16:08 Dose: 2 mg Ondansetron HCl (Zofran Inj) 4 mg IVP Q4H PRN PRN Reason: Nausea/Vomiting Last Admin: 12/31/16 20:41 Dose: 4 mg Pantoprazole Sodium (Protonix Inj) 40 mg IVP DAILY [facility] Last Admin: 01/02/17 09:15 Dose: 40 mg - Labs Labs: 01/02/17 06:45 01/02/17 06:45 PT 12.0 Seconds (9.9-11.8) H 01/02/17 06:45 INR 1.11 (0.93-1.08) H 01/02/17 06:45 - Constitutional Appears: Non-toxic, No Acute Distress - Head Exam Head Exam: ATRAUMATIC, NORMOCEPHALIC - Eye Exam Eye Exam: EOMI, Normal appearance, PERRL Pupil Exam: NORMAL ACCOMODATION, PERRL - ENT Exam ENT Exam: Mucous Membranes Moist - Respiratory Exam Respiratory Exam: Clear to Ausculation Bilateral, NORMAL BREATHING PATTERN. absent: Rales, Rhonchi, Wheezes - Cardiovascular Exam Cardiovascular Exam: REGULAR RHYTHM, +S1, +S2 - GI/Abdominal Exam GI & Abdominal Exam: Guarding, Tenderness (RUQ), Normal Bowel Sounds. absent: Distended - Extremities Exam Extremities Exam: Normal Inspection. absent: Pedal Edema, Tenderness - Back Exam Back Exam: NORMAL INSPECTION. absent: paraspinal tenderness, tenderness - Neurological Exam Neurological Exam: Alert, Awake, CN II-XII Intact, Oriented x3 - Psychiatric Exam Psychiatric exam: Normal Affect, Normal Mood - Skin Skin Exam: Dry, Intact, Normal Color, Warm Assessment and Plan - Assessment and Plan (Free Text) Assessment: 41 y/o M with PMH of DM, Pancreatitis, Pancreatic cyst, Hep C, PUD admitted for abdominal pain. Developed left sided chest pain radiating in the neck which has improved. Seen by cardiology and GI. Plan: 1. Abdominal Pain * Likely due to pancreatitis * GI consulted, help appreciated * Advanced to mechanical soft diet * Decreased LR@100mls/ hr * Abdominal xray showed findings consitent with mild ileus, no evidence of bowel obstruction [see full report] * Continue Protonix IV * Zofran for nausea * Morphine 2Q4 PRN pain * resume Amylase 2) Chest Pain * Cardiology consulted, help appreciated * Patient reportedly had stress test 1 year ago * cardiac enzymes negative x3 * Initial EKG sinus bradycardia, left axis deviation, possible old septal LA * Repeat EKG showed sinus bradycardia, no change * Chest x-ray showed no active disease process * likely musculeskeletal as reproducible with palpation * continue to monitor 3). DM * Levemir 20U BID * ISS * Regular accuchecks ACHS * HgbA1c last month was 13. 4). Hx of Peptic Ulcer Dx * IV protonix 5). Tobacco abuse * counseled patient on smoking cessation GI ppx: IV protonix DVT ppx: SCDs Case seen, reviewed and discussed with attending. <Cameron Schroeder MD - Last Filed: 01/03/17 16:24> Objective - Vital Signs/Intake and Output Vital Signs (last 24 hours): Temp Pulse Resp BP Pulse Ox 97.6 F 57 L 20 107/58 L 97 01/03/17 06:00 01/03/17 14:00 01/03/17 06:00 01/03/17 06:00 01/03/17 06:00 Intake and Output: 01/03/17 01/03/17 06:59 18:59 Intake Total 2680 1180 Balance 2680 1180 - Medications Medications: Current Medications Amylase (Pancrease 59937 U-5000 U-98931 U) 25,000 u PO WM [facility] Last Admin: 01/03/17 11:10 Dose: 25,000 u Lactated Ringer's (Lactated Ringer's) 1,000 mls @ 100 mls/hr IV .Q10H [facility] Last Admin: 01/03/17 06:51 Dose: 100 mls/hr Insulin Detemir (Levemir) 20 unit SC BID [facility] Last Admin: 01/03/17 09:09 Dose: 20 unit Insulin Human Regular (Humulin R Low) 0 units SC ACHS [facility] PRN Reason: Protocol Last Admin: 01/03/17 11:09 Dose: 3 units Morphine Sulfate (Morphine) 2 mg IVP Q4H PRN PRN Reason: Pain, severe (8-10) Last Admin: 01/03/17 15:08 Dose: 2 mg Ondansetron HCl (Zofran Inj) 4 mg IVP Q4H PRN PRN Reason: Nausea/Vomiting Last Admin: 01/03/17 15:07 Dose: 4 mg Pantoprazole Sodium (Protonix Inj) 40 mg IVP DAILY [facility] Last Admin: 01/03/17 09:09 Dose: 40 mg - Labs Labs: 01/03/17 05:30 01/03/17 05:30 PT 12.0 Seconds (9.9-11.8) H 01/02/17 06:45 INR 1.11 (0.93-1.08) H 01/02/17 06:45 Attending/Attestation - Attestation I have personally seen and examined this patient.: Yes I have fully participated in the care of the patient.: Yes I have reviewed all pertinent clinical information, including history, physical exam and plan: Yes Notes (Text): Patient was seen and examined with expert medical writer .Agreed with resident assessment and plan. 41 Yrs old male with acute on chronic pancreatitic, patient abdominal pain is improving, we will advance diet.Chest pain is atypical in nature, serial troponins are normal. Blood sugars are relatively better. Management plan was discussed in detail with patient Education was provided.
[2017-01-03 06:33] LABS: ADD MANUAL DIFF? NO
[2017-01-03] MEDS: Morphine 2 mg/ml ISec IVP PRN ×3 (06:50→15:08)
[2017-01-03] MEDS: Lactated Ringer's 1,000 ML IV SCH (06:51)
[2017-01-03 06:57] LABS: BASO # 0.03 K/mm3 (0.0-2.0); BASO % 0.7 % (0.0-3.0); EOS # 0.1 (0.0-0.7); EOS % 2.8 % (1.5-5.0); GRAN % 56.5 % (50.0-68.0); HEMATOCRIT 35.5 % (42.0-52.0); LYMPH # 1.4 (1.2-3.4); LYMPH % 33.4 % (22.0-35.0); MEAN CELL VOLUME 75.1 fL (80.0-105.0); MEAN CORPUSCULAR HEMOGLOBIN 26.2 pg (25.0-35.0); MEAN CORPUSCULAR HGB CONC 34.9 g/dl (31.0-37.0); MEAN PLATELET VOLUME 11.4 fl (7.0-11.0); MONO # 0.3 (0.1-0.6); MONO % 6.6 % (1.0-6.0); PLATELET COUNT 122 10^3/uL (120.0-450.0); RED CELL DISTRIBUTION WIDTH 15.3 % (11.5-14.5); WHITE BLOOD COUNT 4.3 10^3/ul (4.5-11.0)
[2017-01-03 06:59] LABS: ALKALINE PHOSPHATASE 59 U/L (38-133); ALT/SGPT 40 U/L (7-56); AST/SGOT 22 U/L (15-59); BILIRUBIN,TOTAL 0.6 mg/dL (0.2-1.3); BLOOD UREA NITROGEN 6 mg/dL (7-21); CALCIUM 8.7 mg/dL (8.4-10.5); CARBON DIOXIDE 29 mmol/L (21-33); CHLORIDE 102 mmol/L (98-107); GFR AFRICAN-AMERICAN > 60; GLUCOSE,RANDOM 138 mg/dL (70-110); MAGNESIUM 1.7 mg/dL (1.7-2.2); PHOSPHOROUS 4.2 mg/dL (2.5-4.5); POTASSIUM 3.7 mmol/L (3.6-5.0); SODIUM 139 mmol/L (132-148); TOTAL PROTEIN 6.7 g/dL (5.8-8.3)
[2017-01-03 07:43] VITALS: BP 107/58; RESP 20; O2SAT 97
[2017-01-03] MEDS: Insulin Reg-LOW-Coverage SC SCH ×3 (08:14→17:08)
[2017-01-03] MEDS: Insulin Detemir 100 units/ml Vial (Levemir) SC SCH ×2 (09:09→17:09)
[2017-01-03] MEDS: Amylase/Lipase/Protease 5,000 U ECC PO SCH ×3 (09:09→17:06)
--- NOTE | 2017-01-03 14:09 | CP.PCM.DIS ---
<Darnell Bruner - Last Filed: 01/04/17 18:24> Provider - Provider Date of Admission: 12/31/16 11:10 Attending physician: Cameron Schroeder MD Primary care physician: Caryl Hightower MD Consults: Dr. Lucian Nation Time Spent in preparation of Discharge (in minutes): 45 Hospital Course - Lab Results Lab Results: Most Recent Lab Values WBC 4.3 10^3/ul (4.5-11.0) L D 01/03/17 05:30 RBC 4.73 10^6/uL (3.5-6.1) 01/03/17 05:30 Hgb 12.4 gm/dL (14.0-18.0) L 01/03/17 05:30 Hct 35.5 % (42.0-52.0) L 01/03/17 05:30 MCV 75.1 fL (80.0-105.0) L 01/03/17 05:30 MCH 26.2 pg (25.0-35.0) 01/03/17 05:30 MCHC 34.9 g/dl (31.0-37.0) 01/03/17 05:30 RDW 15.3 % (11.5-14.5) H 01/03/17 05:30 Plt Count 122 10^3/uL (120.0-450.0) 01/03/17 05:30 MPV 11.4 fl (7.0-11.0) H 01/03/17 05:30 Gran % 56.5 % (50.0-68.0) 01/03/17 05:30 Lymph % (Auto) 33.4 % (22.0-35.0) 01/03/17 05:30 Harding % (Auto) 6.6 % (1.0-6.0) H 01/03/17 05:30 Eos % (Auto) 2.8 % (1.5-5.0) 01/03/17 05:30 Baso % (Auto) 0.7 % (0.0-3.0) 01/03/17 05:30 Gran # 2.40 (1.4-6.5) 01/03/17 05:30 Lymph # 1.4 (1.2-3.4) 01/03/17 05:30 Harding # 0.3 (0.1-0.6) 01/03/17 05:30 Eos # 0.1 (0.0-0.7) 01/03/17 05:30 Baso # 0.03 K/mm3 (0.0-2.0) 01/03/17 05:30 PT 12.0 Seconds (9.9-11.8) H 01/02/17 06:45 INR 1.11 (0.93-1.08) H 01/02/17 06:45 Sodium 139 mmol/L (132-148) 01/03/17 05:30 Potassium 3.7 mmol/L (3.6-5.0) 01/03/17 05:30 Chloride 102 mmol/L (98-107) 01/03/17 05:30 Carbon Dioxide 29 mmol/L (21-33) 01/03/17 05:30 Anion Gap 12 (10-20) 01/03/17 05:30 BUN 6 mg/dL (7-21) L 01/03/17 05:30 Creatinine 0.7 mg/dL (0.5-1.4) 01/03/17 05:30 Est GFR ( Amer) > 60 01/03/17 05:30 Est GFR (Non-Af Amer) > 60 01/03/17 05:30 POC Glucose (mg/dL) 125 mg/dL (65-110) H 01/01/17 21:37 Random Glucose 138 mg/dL (70-110) H 01/03/17 05:30 Calcium 8.7 mg/dL (8.4-10.5) 01/03/17 05:30 Phosphorus 4.2 mg/dL (2.5-4.5) 01/03/17 05:30 Magnesium 1.7 mg/dL (1.7-2.2) 01/03/17 05:30 Total Bilirubin 0.6 mg/dL (0.2-1.3) 01/03/17 05:30 AST 22 U/L (15-59) 01/03/17 05:30 ALT 40 U/L (7-56) 01/03/17 05:30 Alkaline Phosphatase 59 U/L (38-133) 01/03/17 05:30 Lactate Dehydrogenase 321 U/L (333-699) L 12/31/16 09:38 Total Creatine Kinase 218 U/L (35-230) 12/31/16 09:38 Troponin I < 0.01 ng/mL 12/31/16 09:38 Total Protein 6.7 g/dL (5.8-8.3) 01/03/17 05:30 Albumin 3.3 g/dL (3.0-4.8) 01/03/17 05:30 Globulin 3.3 gm/dL 01/03/17 05:30 Albumin/Globulin Ratio 1.0 (1.1-1.8) L 01/03/17 05:30 Triglycerides 438 mg/dL (35-160) H 12/31/16 09:35 Cholesterol 121 mg/dL (130-200) L 12/31/16 09:35 LDL Cholesterol Direct < 30 mg/dL (0-129) 12/31/16 09:35 HDL Cholesterol 18 mg/dL (29-60) L 12/31/16 09:35 Lipase 117 U/L (23-300) 12/30/16 13:45 Urine Color Light yellow (YELLOW) 01/01/17 09:04 Urine Appearance Clear (CLEAR) 01/01/17 09:04 Urine pH 7.5 (4.7-8.0) 01/01/17 09:04 Ur Specific [place] 1.015 (1.005-1.035) 01/01/17 09:04 Urine Protein Negative mg/dL (<30 mg/dL) 01/01/17 09:04 Urine Glucose (UA) Negative mg/dL (NEGATIVE) 01/01/17 09:04 Urine Ketones 15 mg/dL (NEGATIVE) H 01/01/17 09:04 Urine Blood Negative (NEGATIVE) 01/01/17 09:04 Urine Nitrate Negative (NEGATIVE) 01/01/17 09:04 Urine Bilirubin Negative (NEGATIVE) 01/01/17 09:04 Urine Urobilinogen 2.0 E.U./dL (<1 E.U./dL) H 01/01/17 09:04 Ur Leukocyte Esterase Negative Elba/uL (NEGATIVE) 01/01/17 09:04 - Hospital Course Hospital Course: HPI: This is a 41Y M with PMH of DM, Pancreatitis, Pancreatic cyst, Hep C, PUD who came to the ED with nausea, vomiting and abdominal pain x 2 days. He reports that since yesterday, he has vomited about 30 times. The vomit is yellow /green in color. He has had this happen before. The abdominal pain is described as an aching dull pain that is constant. It is diffuse, but worse in LLQ. He was recently admitted here one month ago for the same thing. He also states he is constipated, but had 3 BM yesterday. The patient also describes having some chest pain in the L side of his chest below the nipple. It is tender to palpation and is worse with deep breaths. It does not radiate. He denies CP, SOB , diarrhea, numbness/tingling, or vision changes. Patient is a 41 y/o M who presented with nausea, and vomiting for 2 days. GI was consulted and abdominal xray ordered showing findings consistent with mild ileus, no evidence of bowel obstruction. He was placed on an NPO diet, given zophran, and pain control with morphine. He reported chest pain and an EKG was performed showing sinus bradycardia with no st changes. Cardiology was consulted and serial cardiac enzymes ordered which were negative. The chest pain improved and was determined muscular in nature. His diet was advanced slowly. His triglycerides were found to be elevated as well as glucose. He was advised on proper diabetic diet and medical management. He was determined medically stable for discharge. He was discharged with prescriptions for Percocet, Lopid, Neurontin, Insulin, and Pacrease. He was told to take prescriptions as written; keep track of your blood sugar at home and keep a log ; follow up with your primary care physician within a week; follow up with your nursing resident within a week; please refrain from alcohol, tobacco, or drug use; and if your condition worsens or new symptoms arise, please return to the emergency room. He verbalized understanding and was discharged home. This is a brief summary of the patient's stay at this facility, for more detail , see patients full chart. - Date & Time of H&P Date of H&P: 12/30/16 Time of H&P: 22:11 Discharge Exam - Head Exam Head Exam: ATRAUMATIC, NORMOCEPHALIC - Eye Exam Eye Exam: EOMI, Normal appearance, PERRL Pupil Exam: NORMAL ACCOMODATION, PERRL - ENT Exam ENT Exam: Mucous Membranes Moist - Respiratory Exam Respiratory Exam: Clear to PA & Lateral, NORMAL BREATHING PATTERN. absent: Rales, Rhonchi, Wheezes - Cardiovascular Exam Cardiovascular Exam: REGULAR RHYTHM, +S1, +S2 - GI/Abdominal Exam GI & Abdominal Exam: Normal Bowel Sounds, Soft, Tenderness (right upper quadrant ) - Back Exam Back exam: NORMAL INSPECTION. absent: rash noted, tenderness - Neurological Exam Neurological exam: Alert, CN II-XII Intact, Oriented x3, Reflexes Normal - Psychiatric Exam Psychiatric exam: Normal Affect, Normal Mood - Skin Skin Exam: Dry, Intact, Normal Color, Warm Discharge Plan - Discharge Medications Prescriptions: Gemfibrozil [Lopid] 600 mg PO BID #14 tab Gabapentin [Neurontin] 300 mg PO 1800 #7 cap Insulin Aspart/Insulin Aspar [Novolog Mix 70/30 (70/30 units/ml)] 25 unit SC BID #28 unit Amylase/Lipase/Protease [Pancrease 05355 U-5000 U-21238 U] 25,000 u PO WM #30 ecc - Follow Up Plan Condition: STABLE Disposition: HOME/ ROUTINE Instructions: Chest Pain (DC), Chest Pain (GEN), Pancreatitis (DC), Acute Abdominal Pain (DC), Acute Abdominal Pain (GEN) Additional Instructions: You are medically stable for discharge. You are discharge with prescriptions for Percocet, Lopid, Neurontin, Insulin, and Pacrease. Please take prescriptions as written. Please keep track of your blood sugar at home and keep a log. Follow up with your primary care physician within a week. Follow up with your nursing resident within a week. Please refrain from alcohol, tobacco, or drug use. If your condition worsens or new symptoms arise, please return to the emergency room. Referrals: Caryl Hightower MD [Primary Care Provider] - Roe Nation MD [Staff Provider] - <Elda ESPINOZA,Cameron - Last Filed: 01/07/17 10:32> Provider - Provider Date of Admission: 12/31/16 11:10 Attending physician: Cameron Schroeder MD Primary care physician: Caryl Hightower MD Hospital Course - Lab Results Lab Results: Most Recent Lab Values WBC 4.3 10^3/ul (4.5-11.0) L D 01/03/17 05:30 RBC 4.73 10^6/uL (3.5-6.1) 01/03/17 05:30 Hgb 12.4 gm/dL (14.0-18.0) L 01/03/17 05:30 Hct 35.5 % (42.0-52.0) L 01/03/17 05:30 MCV 75.1 fL (80.0-105.0) L 01/03/17 05:30 MCH 26.2 pg (25.0-35.0) 01/03/17 05:30 MCHC 34.9 g/dl (31.0-37.0) 01/03/17 05:30 RDW 15.3 % (11.5-14.5) H 01/03/17 05:30 Plt Count 122 10^3/uL (120.0-450.0) 01/03/17 05:30 MPV 11.4 fl (7.0-11.0) H 01/03/17 05:30 Gran % 56.5 % (50.0-68.0) 01/03/17 05:30 Lymph % (Auto) 33.4 % (22.0-35.0) 01/03/17 05:30 Harding % (Auto) 6.6 % (1.0-6.0) H 01/03/17 05:30 Eos % (Auto) 2.8 % (1.5-5.0) 01/03/17 05:30 Baso % (Auto) 0.7 % (0.0-3.0) 01/03/17 05:30 Gran # 2.40 (1.4-6.5) 01/03/17 05:30 Lymph # 1.4 (1.2-3.4) 01/03/17 05:30 Harding # 0.3 (0.1-0.6) 01/03/17 05:30 Eos # 0.1 (0.0-0.7) 01/03/17 05:30 Baso # 0.03 K/mm3 (0.0-2.0) 01/03/17 05:30 PT 12.0 Seconds (9.9-11.8) H 01/02/17 06:45 INR 1.11 (0.93-1.08) H 01/02/17 06:45 Sodium 139 mmol/L (132-148) 01/03/17 05:30 Potassium 3.7 mmol/L (3.6-5.0) 01/03/17 05:30 Chloride 102 mmol/L (98-107) 01/03/17 05:30 Carbon Dioxide 29 mmol/L (21-33) 01/03/17 05:30 Anion Gap 12 (10-20) 01/03/17 05:30 BUN 6 mg/dL (7-21) L 01/03/17 05:30 Creatinine 0.7 mg/dL (0.5-1.4) 01/03/17 05:30 Est GFR ( Amer) > 60 01/03/17 05:30 Est GFR (Non-Af Amer) > 60 01/03/17 05:30 POC Glucose (mg/dL) 323 mg/dL (65-110) H 01/03/17 16:25 Random Glucose 138 mg/dL (70-110) H 01/03/17 05:30 Calcium 8.7 mg/dL (8.4-10.5) 01/03/17 05:30 Phosphorus 4.2 mg/dL (2.5-4.5) 01/03/17 05:30 Magnesium 1.7 mg/dL (1.7-2.2) 01/03/17 05:30 Total Bilirubin 0.6 mg/dL (0.2-1.3) 01/03/17 05:30 AST 22 U/L (15-59) 01/03/17 05:30 ALT 40 U/L (7-56) 01/03/17 05:30 Alkaline Phosphatase 59 U/L (38-133) 01/03/17 05:30 Lactate Dehydrogenase 321 U/L (333-699) L 12/31/16 09:38 Total Creatine Kinase 218 U/L (35-230) 12/31/16 09:38 Troponin I < 0.01 ng/mL 12/31/16 09:38 Total Protein 6.7 g/dL (5.8-8.3) 01/03/17 05:30 Albumin 3.3 g/dL (3.0-4.8) 01/03/17 05:30 Globulin 3.3 gm/dL 01/03/17 05:30 Albumin/Globulin Ratio 1.0 (1.1-1.8) L 01/03/17 05:30 Triglycerides 438 mg/dL (35-160) H 12/31/16 09:35 Cholesterol 121 mg/dL (130-200) L 12/31/16 09:35 LDL Cholesterol Direct < 30 mg/dL (0-129) 12/31/16 09:35 HDL Cholesterol 18 mg/dL (29-60) L 12/31/16 09:35 Lipase 117 U/L (23-300) 12/30/16 13:45 Urine Color Light yellow (YELLOW) 01/01/17 09:04 Urine Appearance Clear (CLEAR) 01/01/17 09:04 Urine pH 7.5 (4.7-8.0) 01/01/17 09:04 Ur Specific [place] 1.015 (1.005-1.035) 01/01/17 09:04 Urine Protein Negative mg/dL (<30 mg/dL) 01/01/17 09:04 Urine Glucose (UA) Negative mg/dL (NEGATIVE) 01/01/17 09:04 Urine Ketones 15 mg/dL (NEGATIVE) H 01/01/17 09:04 Urine Blood Negative (NEGATIVE) 01/01/17 09:04 Urine Nitrate Negative (NEGATIVE) 01/01/17 09:04 Urine Bilirubin Negative (NEGATIVE) 01/01/17 09:04 Urine Urobilinogen 2.0 E.U./dL (<1 E.U./dL) H 01/01/17 09:04 Ur Leukocyte Esterase Negative Elba/uL (NEGATIVE) 01/01/17 09:04 Attending/Attestation - Attestation I have personally seen and examined this patient.: Yes I have fully participated in the care of the patient.: Yes I have reviewed all pertinent clinical information, including history, physical exam and plan: Yes Notes (Text): Patient was seen and examined with family practice medical doctor .Agreed with resident assessment and plan. 41 Yrs old male with acute on chronic pancreatitic, patient abdominal pain has improved.He is tolerating diet .He has been given 5 days of Percocet for his chronic Pancreatitis (untill he see his primary care) Chest pain is atypical in nature, serial troponins are normal.ECHo showed normal systolic function, no further inpatient work up is needed. Patient will be discharged home and will follow up with PCP and GI Management plan was discussed in detail with patient Education was provided.
[2017-01-03 14:19] VITALS: PULSE 57
--- NOTE | 2017-01-04 06:46 | CARD ---
APPROVED REPORT EXAM: Two-dimensional and M-mode echocardiogram with Doppler and color Doppler. Other Information Quality : GoodRhythm : INDICATION Chest Pain 2D DIMENSIONS Left Atrium (2D)3.8 (1.6-4.0cm)IVSd1.1 (0.7-1.1cm) LVDd4.9 (3.9-5.9cm)PWd0.9 (0.7-1.1cm) LVDs3.4 (2.5-4.0cm)FS (%) 30.9 % LVEF (%)58.0 (>50%) M-Mode DIMENSIONS Aortic Root2.60 (2.2-3.7cm)Aortic Cusp Exc.1.80 (1.5-2.0cm) Aortic Valve AoV Peak Bhmkxyxi682.0cm/s Mitral Valve MV E Tfqwxwzv685.0cm/sMV A Vprhtrkx79.4cm/sE/A ratio1.4 TDI E/Lateral E'0.0E/Medial E'0.0 Tricuspid Valve TR Peak Avdeiotm090yk/sRAP [id number] Peak Gr.20mmHg [id number] LEFT VENTRICLE The left ventricle is normal size. There is normal left ventricular wall thickness. The left ventricular function is normal. The left ventricular ejection fraction is within the normal range. There is normal LV segmental wall motion. RIGHT VENTRICLE The right ventricle is normal size. ATRIA The left atrium size is normal. The right atrium size is normal. The interatrial septum is intact with no evidence for an atrial septal defect. AORTIC VALVE The aortic valve is normal in structure. MITRAL VALVE The mitral valve is normal in structure. Mitral regurgitation is trace to mild. TRICUSPID VALVE The tricuspid valve is normal in structure. There is trace to mild tricuspid regurgitation. PULMONIC VALVE The pulmonic valve is not well visualized. GREAT VESSELS The aortic root is normal in size. PERICARDIAL EFFUSION There is no pleural effusion. <Conclusion> The left ventricle is normal size. There is normal left ventricular wall thickness. The left ventricular function is normal.
== END 2017-01-03 17:47 | disposition home or self-care (01) | DRG 204 ==
LOC: ED 13:35 → ERH 20:08 → 3RNO 21:41 → OBSVTOIN 12-31 11:10 → 3RNO 01-03 14:20
PROVIDERS: ADMIT Hospitalist; ATTEND Internal Medicine
DX: K85.90 Acute pancreatitis without necrosis or infection, unspecified (principal); D69.6 Thrombocytopenia, unspecified; I24.9 Acute ischemic heart disease, unspecified; D64.9 Anemia, unspecified; E11.9 Type 2 diabetes mellitus without complications; I10 Essential (primary) hypertension; K56.7 Ileus, unspecified; E87.6 Hypokalemia; B19.20 Unspecified viral hepatitis C without hepatic coma; K56.41 Fecal impaction; R10.9 Unspecified abdominal pain; K86.1 Other chronic pancreatitis; E78.5 Hyperlipidemia, unspecified; F17.290 Nicotine dependence, other tobacco product, uncomplicated; Z79.4 Long term (current) use of insulin; Z80.8 Family history of malignant neoplasm of other organs or systems; Z82.49 Family history of ischemic heart disease and other diseases of the circulatory system; Z87.11 Personal history of peptic ulcer disease; Z90.49 Acquired absence of other specified parts of digestive tract; Z91.048 Other nonmedicinal substance allergy status; R00.1 Bradycardia, unspecified; R40.2412 Glasgow coma scale score 13-15, at arrival to emergency department; K21.9 Gastro-esophageal reflux disease without esophagitis; Z87.440 Personal history of urinary (tract) infections; R30.0 Dysuria; Z87.19 Personal history of other diseases of the digestive system

== ENCOUNTER 2017-01-25 08:01 | Inpatient (IN) | payer OTHER ==
[2017-01-25] MEDS ORDERED: Morphine 4 mg/ml ISec IVP STA ×3 (09:21→12:44)
[2017-01-25] MEDS ORDERED: Sodium Chloride 0.9% 1,000 ML IV STA ×2 (09:21→12:25)
[2017-01-25 09:29] LABS: ADD MANUAL DIFF? NO
[2017-01-25 09:35] LABS: BASO # 0.03 K/mm3 (0.0-2.0); BASO % 0.4 % (0.0-3.0); EOS # 0.1 (0.0-0.7); EOS % 0.8 % (1.5-5.0); GRAN # 5.15 (1.4-6.5); GRAN % 72.2 % (50.0-68.0); LYMPH # 1.5 (1.2-3.4); LYMPH % 20.6 % (22.0-35.0); MEAN CELL VOLUME 73.8 fL (80.0-105.0); MEAN CORPUSCULAR HEMOGLOBIN 29.1 pg (25.0-35.0); MEAN CORPUSCULAR HGB CONC 39.4 g/dl (31.0-37.0); MONO # 0.4 (0.1-0.6); PLATELET COUNT 203 10^3/uL (120.0-450.0); RED CELL DISTRIBUTION WIDTH 15.3 % (11.5-14.5); WHITE BLOOD COUNT 7.1 10^3/ul (4.5-11.0)
--- NOTE | 2017-01-25 09:35 | ED PDOC ---
Arrival/HPI - General Chief Complaint: Abdominal Pain Time Seen by Provider: 01/25/17 08:28 Historian: Patient - History of Present Illness Narrative History of Present Illness (Text): 01/25/17 09:41 A 41 year old male, whose past medical history includes pancreatitis, pacreatic cyst, peptic ulcer, hypertension, diabetes, and cholecystectomy, presents to the emergency department complaining of epigastric abdominal pain for the past 3 days. Patient describes pain as sharp and burning that radiates to chest. He notes abdominal pain developed about three weeks ago, when he was discharged from [facility] (01/03/17). Patient reports 10 episodes of vomiting today and a small nose bleed from left nostril after vomiting. Patient's last BM was last night. Patient also notes shortness of breath, nausea and constipation but denies diarrhea, hematemesis or any other complaints at this time. Patient denies alcohol use. PMD: Dr. Hightower Time/Duration: < month Symptom Onset: Sudden Symptom Course: Unchanged Quality: Burning, Other (sharp pain) Activities at Onset: Rest Context: Home Associated Symptoms (Text): shortness of breath, nausea, constipation Past Medical History - Provider Review Nursing Documentation Reviewed: Yes - Infectious Disease Hx of Infectious Diseases: None - Tetanus Immunization Tetanus Immunization: Unknown - Cardiac Hx Cardiac Disorders: Yes Hx Cardiac Arrhythmia: Yes (bradycardia) Hx Hypertension: Yes - Pulmonary Hx Respiratory Disorders: No - Neurological Hx Neurological Disorder: No - HEENT Hx HEENT Disorder: Yes (blurry vision) - Renal Hx Renal Disorder: Yes Hx Kidney Stones: Yes - Endocrine/Metabolic Hx Endocrine Disorders: Yes Hx Diabetes Mellitus Type 1: Yes - Hematological/Oncological Hx Blood Disorders: Yes Hx Hepatitis C: Yes - Integumentary Hx Dermatological Disorder: No - Musculoskeletal/Rheumatological Hx Falls: Yes - Gastrointestinal Hx Gastrointestinal Disorders: Yes Hx Gastroesophageal Reflux: Yes Hx Pancreatitis: Yes - Genitourinary/Gynecological Hx Genitourinary Disorders: Yes Hx Urinary Tract Infection: Yes - Psychiatric Hx Psychophysiologic Disorder: No Hx Substance Use: No - Surgical History Hx Appendectomy: Yes Hx Cholecystectomy: Yes Other/Comment: cyst removal panc - Anesthesia Hx Anesthesia: Yes Hx Anesthesia Reactions: No Hx Malignant Hyperthermia: No - Suicidal Assessment Feels Threatened In Home Enviroment: No Family/Social History - Physician Review Nursing Documentation Reviewed: Yes Family/Social History: No Known Family HX Smoking Status: Light Smoker < 10 Cigarettes Daily Hx Alcohol Use: No Hx Substance Use: No Hx Substance Use Treatment: No Allergies/Home Meds Allergies/Adverse Reactions: Allergies dy Allergy (Mild, Uncoded 01/25/17 08:10) ITCHING hair color dye Allergy (Uncoded 01/25/17 08:10) RASH Home Medications: Home Meds Medication Instructions Recorded Confirmed Colesevelam HCl [Welchol] 625 mg PO BID 01/25/17 01/25/17 Gabapentin [Neurontin] 1 cap PO DAILY 01/25/17 01/25/17 Gemfibrozil 600 mg PO BID 01/25/17 01/25/17 Insulin NPH Hum/Reg Insulin Hm 1 unit SQ DAILY 01/25/17 01/25/17 [Humulin 70-30 Vial] Lipase/Protease/Amylase [Zenpep Dr 5,000 unit PO DAILY 01/25/17 01/25/17 10,000 Units Capsule] Oxycodone HCl/Acetaminophen 1 tab PO Q6 PRN 01/25/17 01/25/17 [Endocet 5-325 Tablet] Review of Systems - Physician Review All systems were reviewed & negative as marked: Yes - Review of Systems Constitutional: Normal Eyes: Normal ENT: Normal Respiratory: SOB Cardiovascular: Chest Pain Gastrointestinal: Abdominal Pain, Constipation, Nausea, Vomiting. absent: Diarrhea, Hematemesis Genitourinary Male: Normal Musculoskeletal: Normal Skin: Normal Neurological: Normal Endocrine: Normal Hemo/Lymphatic: Normal Psychiatric: Normal Physical Exam Vital Signs Reviewed: Yes Vital Signs Temp Pulse Resp BP Pulse Ox 01/25/17 10:15 51 L 16 137/70 100 01/25/17 08:22 97.8 F 62 18 155/86 H 100 Temperature: Afebrile Blood Pressure: Hypertensive Pulse: Regular Respiratory Rate: Normal Appearance: Positive for: Well-Appearing, Non-Toxic, Comfortable Pain Distress: None Mental Status: Positive for: Alert and Oriented X 3 Finger Stick Blood Glucose: 299 - Systems Exam Head: Present: Atraumatic, Normocephalic Pupils: Present: PERRL Extroacular Muscles: Present: EOMI Conjunctiva: Present: Normal Mouth: Present: Moist Mucous Membranes Neck: Present: Normal Range of Motion Respiratory/Chest: Present: Clear to Auscultation, Good Air Exchange. No: Respiratory Distress, Accessory Muscle Use Cardiovascular: Present: Regular Rate and Rhythm, Normal S1, S2. No: Murmurs Abdomen: Present: Tenderness (upper quadrants), Guarding. No: Rebound Back: Present: Normal Inspection Upper Extremity: Present: Normal Inspection. No: Cyanosis, Edema Lower Extremity: Present: Normal Inspection. No: Edema Neurological: Present: GCS=15, CN II-XII Intact, Speech Normal Skin: Present: Warm, Dry, Normal Color. No: Rashes Psychiatric: Present: Alert, Oriented x 3, Normal Insight, Normal Concentration Medical Decision Making ED Course and Treatment: 01/25/17 09:32 Impression: A 41 year old male with epigastric abdominal pain. Differential Diagnosis include but are not limited to: Gastritis vs. Pancreatitis Plan: -- CT abd/pelvis -- Labs -- Morphine, IV fluids, Zofran -- Reassess and disposition Prior Visits: Notes and results from previous visits were reviewed. Patient last reported to the emergency department on 12/30/16 for evaluation of chest pain and vomiting. Progress Notes: CT abd/pelvis - chronic pancreatitis, pseudocyst 01/25/17 12:18 Patient's potassium was elevated but specimen hemolyzed. Also noted that the blood was lipemic. Lipids ordered. It was noted that patient had TG >3000. He was started on an insulin drip at 8 and an ICU consult was obtained. The case was discussed with Dr. Sanchez who will admit the patient to the Unit. I discussed the case with Dr. Lackey for admission. Patient required several doses of Morphine for pain control. Currently his pain is controlled. - Critical Care Critical Care Minutes: 60 minutes - Lab Interpretations Lab Results: 01/25/17 09:25 01/25/17 09:25 Lab Results 01/25/17 10:18: Triglycerides 3583 H, Cholesterol 254 H, LDL Cholesterol Direct < 30, HDL Cholesterol 13 L 01/25/17 09:25: Sodium 132, Potassium 5.6 H* D, Chloride 100, Carbon Dioxide 18 L, Anion Gap 20, BUN 10, Creatinine 0.6, Est GFR ( Amer) > 60, Est GFR ( Non-Af Amer) > 60, Random Glucose 281 H, Calcium 8.6, Total Bilirubin 2.4 H, AST 54, ALT 22, Alkaline Phosphatase 87, Total Protein 8.9 H, Albumin 4.5, Globulin 4.4, Albumin/Globulin Ratio 1.0 L, Lipase 140 01/25/17 09:25: PT 11.8, INR 1.08, APTT 38.7 H 01/25/17 09:25: WBC 7.1 D, RBC 5.39, Hgb 14.4, Hct 39.4 L, MCV 73.8 L, MCH 29.1 , MCHC 39.4 H, RDW 15.3 H, Plt Count 203, Gran % 72.2 H, Lymph % (Auto) 20.6 L, [place] % (Auto) 6.0, Eos % (Auto) 0.8 L, Baso % (Auto) 0.4, Gran # 5.15, Lymph # 1.5, [place] # 0.4, Eos # 0.1, Baso # 0.03 I have reviewed the lab results: Yes Interpretation: Abnormal lab values - RAD Interpretation Radiology Orders: 01/25/17 09:21 ABD & PELVIS IV CONTRAST ONLY [CT] Stat - EKG Interpretation Interpreted by ED Physician: Yes (NSR at [address] elevations, LAD) Type: 12 lead EKG - Medication Orders Current Medication Orders: Sodium Chloride (Sodium Chloride 0.9%) 1,000 mls @ 100 mls/hr IV .Q10H STA Stop: 01/25/17 19:20 Last Admin: 01/25/17 09:28 Dose: 100 mls/hr Insulin Human Regular 100 (units/ Sodium Chloride) 100 mls @ 8 mls/hr IV .[id number] PRN; Protocol; 8 UNITS/HR PRN Reason: TITRATE PER MD ORDER Last Admin: 01/25/17 11:35 Dose: 8 mls/hr Morphine Sulfate (Morphine) 2 mg IVP Q4H PRN PRN Reason: severe pain Ondansetron HCl (Zofran Inj) 4 mg IVP Q6H PRN PRN Reason: Nausea/Vomiting Pantoprazole Sodium (Protonix Inj) 40 mg IVP DAILY DO Discontinued Medications Iohexol (Omnipaque 350 100 Ml) Confirm Administered Dose 350 mg .ROUTE .STK-MED ONE Stop: 01/25/17 10:27 Morphine Sulfate (Morphine) 4 mg IVP STAT STA Stop: 01/25/17 09:22 Last Admin: 01/25/17 09:28 Dose: 4 mg Re-Assess: VENECIA Pain Assessment [place] 01[place]25[place]17 10:28 [facility] [place] 01[place]25/17 10:47 [facility] [id number] Pain Reassessment Is this a pain reassessment? Yes Sleep Is patient sleeping during reassessment? Yes Pain Scale Used Pain Scale Used Numeric Description Intensity of Pain at present 5 Morphine Sulfate (Morphine) 4 mg IVP STAT STA Stop: 01/25/17 10:45 Last Admin: 01/25/17 10:49 Dose: 4 mg Ondansetron HCl (Zofran Inj) 4 mg IVP STAT STA Stop: 01/25/17 09:22 Last Admin: 01/25/17 09:28 Dose: 4 mg Ondansetron HCl (Zofran Inj) 4 mg IVP STAT STA Stop: 01/25/17 10:45 Last Admin: 01/25/17 10:50 Dose: 4 mg - Coltibe Statement The provider has reviewed the documentation as recorded by the Jeny Guadalupe All medical record entries made by the Jeny were at my direction and personally dictated by me. I have reviewed the chart and agree that the record accurately reflects my personal performance of the history, physical exam, medical decision making, and the department course for this patient. I have also personally directed, reviewed, and agree with the discharge instructions and disposition. Disposition/Present on Arrival - Present on Arrival Any Indicators Present on Arrival: No History of DVT/PE: No History of Uncontrolled Diabetes: No Urinary Catheter: No History of Decub. Ulcer: No History Surgical Site Infection Following: None - Disposition Have Diagnosis and Disposition been Completed?: Yes Diagnosis: Abdominal pain, Chronic pancreatitis, Hypertriglyceridemia Disposition: HOSPITALIZED Disposition Time: 12:23 Patient Plan: Admission, ICU Condition: CRITICAL
[2017-01-25 09:47] LABS: ALKALINE PHOSPHATASE 87 U/L (38-133); ALT/SGPT 22 U/L (7-56); AST/SGOT 54 U/L (15-59); BILIRUBIN,TOTAL 2.4 mg/dL (0.2-1.3); BLOOD UREA NITROGEN 10 mg/dL (7-21); CALCIUM 8.6 mg/dL (8.4-10.5); CARBON DIOXIDE 18 mmol/L (21-33); CHLORIDE 100 mmol/L (98-107); GFR AFRICAN-AMERICAN > 60; GLUCOSE,RANDOM 281 mg/dL (70-110); LIPASE 140 U/L (23-300); SODIUM 132 mmol/L (132-148); TOTAL PROTEIN 8.9 g/dL (5.8-8.3)
[2017-01-25 09:54] LABS: POTASSIUM 5.6 mmol/L (3.6-5.0)
[2017-01-25 09:58] LABS: HEMATOCRIT 39.4 % (42.0-52.0)
[2017-01-25 10:26] LABS: CHOLESTEROL 254 mg/dL (130-200)
[2017-01-25] MEDS ORDERED: Iohexol 350 MG/100 ML VIAL ONE (10:26)
[2017-01-25 10:52] LABS: INR 1.08 (0.93-1.08); PARTIAL THROMBOPLASTIN TIME 38.7 Seconds (23.7-30.8)
[2017-01-25] MEDS ORDERED: Insulin Regular 100 UNITS in Sodium Chloride 0.9% 99 ML IV PRN (11:02)
--- NOTE | 2017-01-25 12:24 | CON ---
DATE: 01/25/2017 This is a 41-year-old gentleman with a history of arthritis, hepatitis C, and chronic pancreatitis who presented this time with 3-day duration of abdominal pain in the mesogastrium. Pain was radiating to the back and upper chest. Pain initially was moderate, however, progressed to 8-9/10. It was associated with some nausea and vomiting. The vomiting was bilious and without any blood. No diarrhea. In fact, the patient complains of some constipation. The patient has a longstanding history of chronic pancreatitis, and a pseudocyst resection in the past. No chest pain, no cough, no fever, no chills, no sweats. PAST MEDICAL HISTORY: Hepatitis C, chronic pancreatitis, arthritis. ALLERGIES: HAIR DYE. FAMILY HISTORY: Noncontributory. MEDICATIONS: At home, Percocet, lipase/protease/amylase, Welchol, Neurontin, gemfibrozil, insulin 70/30. REVIEW OF SYSTEMS: Revealed 12-point organ system other than mentioned in history of present illness is negative. SOCIAL HISTORY: The patient smokes about 4 cigars a day. Denies alcohol or illicit drug abuse. PHYSICAL EXAMINATION: VITAL SIGNS: Temperature 97.8, heart rate 51-62, blood pressure 137/70, respiratory rate 16, oxygen saturation 100% on room air. HEAD AND NECK: Atraumatic. LUNGS: Clear to auscultation bilaterally. HEART: Regular rate and rhythm. S1, S2 normal. ABDOMEN: Soft, tender in the right mid-epigastric and periumbilical area. Scars from prior appendectomy and cholecystectomy present. There is no rebound tenderness. No voluntary or involuntary guarding. MUSCULOSKELETAL: No C/C/E. NEUROLOGIC: The patient moves all extremities spontaneously. SKIN: Moist. PSYCHIATRIC: The patient is alert and oriented x 3. LABORATORY DATA: WBC 7.1, hemoglobin 14.4, platelet count 204. Sodium 132, potassium 5.6, chloride 100, carbon dioxide 18. BUN 10, creatinine 0.6. Glucose 281. AST 54, ALT 22. Triglycerides 3583, lipase 140. Cholesterol 254. LDL cholesterol less than 30. HDL cholesterol 13. INR 1.08. No official report for abdomen and pelvis CAT scan available. However, I discussed CAT scan with Dr. Hernandez who mentioned that there are changes consistent with diagnosis of chronic pancreatitis, but not acute pancreatitis. No colitis, no enteritis, no free air. ASSESSMENT AND PLAN: This is a 41-year-old gentleman with chronic pancreatitis who presented at this time with 20 times elevated over the normal level triglycerides. At present time, we will proceed with pain control, IV fluids, insulin drip, serial triglycerides level, and Protonix IV. Renal consult was requested for consideration of plasmapheresis. GI consult will be requested. Endocrinology consult will be requested. We will continue to target euvolemia, euglycemia, normothermia, and oxygen saturation more than 90%. The patient will be going to ICU for insulin drip. Accu-Chek every 1 hour. Addendum: Patient refused plasmapheresis. Nephro consult is appreciated. Will continue insulin, TG level is decreasing. ccm time 40 min Allan Sanchez MD cc: [id number] TT: 01/25/2017 12:23:17 Confirmation # [id number] Dictation # [id number] MTDD
--- NOTE | 2017-01-25 12:29 | CP.PCM.HP ---
<Marc Alford - Last Filed: 01/25/17 15:37> History of Present Illness - History of Present Illness History of Present Illness: CC: Abd pain 41yo M with PMHx of Hep C, Arthritis, Pancreatitis, DM, HLD here for evaluation of Abd pain. Patient states that he has had similar episodes of pain in the past. This episode has been going on for the past 3 days and has gradually gotten worse. Pain is located in the epigastric area, described as stabbing in quality, radiates to chest and upper back. 8-9/10 on pain scale. It is associated with Nausea and vomiting which started yesterday and he states that he had multiple episodes today, prior to arrival. Vomit was bilious, no blood. Denies any diarrhea, but does complain of chronic constipation off and on. He states that he has had decreased intake for the past 3 days and therefore, did not take his insulin as directed. He also states that he ran out of his test strips and was not able to check his sugar level at home. Also c/o some dysuria which has been present for the past couple weeks. Denies any chest pain, no SOB , no Headache, no Fever, no chills. PMD: [place] PMHx: Hepatitis C, Chronic Pancreatiis, DM, HLD, Arthritis PSHx: Appendectomy, Cholecystectomy, Pancreatic Pseudocyst resection Family Hx: Denies Social Hx: Current 4-5 cigars daily, No ETOH, No illicit drugs Allergy: Hair Dye Meds: Percocet, Pancreatic enzymes, Welchol, Gabapentin, Insulin 70/30, Gemfibrozil Present on Admission - Present on Admission Any Indicators Present on Admission: No Review of Systems - Review of Systems All systems: reviewed and no additional remarkable complaints except - Constitutional Constitutional: absent: Chills, Fever - EENT Eyes: absent: Blind Spots Ears: absent: Disequilibrium, Dizziness Nose/Mouth/Throat: Epistaxis - Cardiovascular Cardiovascular: absent: Chest Pain, Dyspnea - Gastrointestinal Gastrointestinal: Abdominal Pain, Constipation, Nausea, Vomiting. absent: Diarrhea - Genitourinary Genitourinary: Dysuria - Musculoskeletal Musculoskeletal: absent: Back Pain - Neurological Neurological: absent: Dizziness - Psychiatric Psychiatric: absent: Anxiety Past Patient History - Infectious Disease Hx of Infectious Diseases: None - Tetanus Immunizations Tetanus Immunization: Unknown - Past Medical History & Family History Past Medical History?: Yes - Past Social History Smoking Status: Light Smoker < 10 Cigarettes Daily - CARDIAC Hx Cardiac Disorders: Yes Hx Cardia Arrhythmia: Yes (bradycardia) Hx Hypertension: Yes - PULMONARY Hx Respiratory Disorders: No - NEUROLOGICAL Hx Neurological Disorder: No - HEENT Hx HEENT Problems: Yes (blurry vision) - RENAL Hx Chronic Kidney Disease: Yes Hx Kidney Stones: Yes - ENDOCRINE/METABOLIC Hx Endocrine Disorders: Yes Hx Diabetes Mellitus Type 1: Yes - HEMATOLOGICAL/ONCOLOGICAL Hx Blood Disorders: Yes Hx Hepatitis C: Yes - INTEGUMENTARY Hx Dermatological Problems: No - MUSCULOSKELETAL/RHEUMATOLOGICAL Hx Falls: Yes - GASTROINTESTINAL Hx Gastrointestinal Disorders: Yes Hx Gastroesophageal Reflux: Yes Hx Pancreatitis: Yes - GENITOURINARY/GYNECOLOGICAL Hx Genitourinary Disorders: Yes Hx Urinary Tract Infection: Yes - PSYCHIATRIC Hx Psychophysiologic Disorder: No Hx Substance Use: No - SURGICAL HISTORY Hx Appendectomy: Yes Hx Cholecystectomy: Yes Other/Comment: cyst removal panc - ANESTHESIA Hx Anesthesia: Yes Hx Anesthesia Reactions: No Hx Malignant Hyperthermia: No Meds Allergies/Adverse Reactions: Allergies Allergy/AdvReac Type Severity Reaction Status Date / Time dy Allergy Mild ITCHING Uncoded 01/25/17 08:10 hair color dye Allergy RASH Uncoded 01/25/17 08:10 Physical Exam - Constitutional Appears: Well, No Acute Distress - Head Exam Head Exam: ATRAUMATIC, NORMAL INSPECTION, NORMOCEPHALIC - Eye Exam Eye Exam: EOMI. absent: Scleral icterus - ENT Exam ENT Exam: Mucous Membranes Moist - Respiratory Exam Respiratory Exam: Clear to Auscultation Bilateral, NORMAL BREATHING PATTERN. absent: Decreased Breath Sounds, Rales, Rhonchi, Wheezes, Respiratory Distress - Cardiovascular Exam Cardiovascular Exam: RRR, +S1, +S2. absent: JVD - GI/Abdominal Exam GI & Abdominal Exam: Soft Additional comments: Tender to palpation in the epigastric and periumbilical area. Open appy, open Donna and laparotomy scars present. Soft, no rebound, no guarding - Extremities Exam Extremities exam: Positive for: normal inspection - Neurological Exam Neurological exam: Alert, Oriented x3 - Psychiatric Exam Psychiatric exam: Normal Affect, Normal Mood - Skin Skin Exam: Dry, Intact, Normal Color, Warm Results - Vital Signs Recent Vital Signs: Last Vital Signs Temp 97.8 F 01/25/17 08:22 Pulse 51 L 01/25/17 10:15 Resp 16 01/25/17 10:15 BP 137/70 01/25/17 10:15 Pulse Ox 100 01/25/17 10:15 - Labs Result Diagrams: 01/25/17 09:25 01/25/17 09:25 Assessment & Plan - Assessment and Plan (Free Text) Assessment: 41yo M with PMHx of Chronic pancreatitis, DM, HLD, Hep C, Arthritis here for eval of severe abd pain. Triglycerides severely elevated. 1. Abd pain consider secondary to chronic pancreatitis Lipid panel abnormal: Triglycerides 3583, Chol 254, LDL <30, HDL [address] Abd/pelvis: small pancreatic pseudocyst, chronic pancreatitis. No acute process. ICU admission Insulin drip serial Lipid panels f/u trop x3 to r/o ACS f/u EKG GI consulted, Dr. Jiménez, recs appreciated Nephrology Consulted for possibility of plasmapheresis, Dr. Pearson, recs appreciated pain control Zofran continue IVF 2. Hx of DM currently on Insulin Drip Endocrinology consult requested, Dr. Saavedra, appreciate recs Hold home insulin regimen Accuchecks 3. Severe HLD serial Lipid panels in the setting of severe hypertrigliceridemia on insulin drip nephro consult requested for poss plasmapheresis continue to monitor 4. Dysuria f/u UA f/u Urine C&S 5. PPx Protonix 40mg IV Daily Discussed case with Dr. Darya Alford PGY1 <Mohit Lackey - Last Filed: 01/25/17 16:14> Results - Vital Signs Recent Vital Signs: Last Vital Signs Temp 97.8 F 01/25/17 12:35 Pulse 62 01/25/17 15:29 Resp 17 01/25/17 15:20 BP 137/70 01/25/17 12:35 Pulse Ox 99 01/25/17 15:20 - Labs Result Diagrams: 01/25/17 09:25 01/25/17 09:25 Attending/Attestation - Attestation I have personally seen and examined this patient.: Yes I have fully participated in the care of the patient.: Yes I have reviewed all pertinent clinical information: Yes Notes (Text): 01/25/17 16:07 41 year old male with past medical history of chronic pancreatitis, dyslipidemia , diabetes and hepatitis C who presents with epigastric pain with nausea and vomiting. He was found to have elevated triglycerides >3000. CT abd/pelvis showed small pancreatic pseudocyst and chronic pancreatitis. He is being admitted to the ICU. Continue with NPO, iv fluids, analgesics, and antiemetics. He is also started on insuliln drip. GI consultation is requested. Endocrinology and nephrology consultations were also requested for evaluation for possible plasmapheresis. Will repeat labs in AM. He states epigastric pain radiates to back and upper chest. Will review EKG and serial cardiac enzymes were also ordered. He has history of hepatitic C and follows up at [facility] clinic. Mohit Lackey MD Hospitalist.
--- NOTE | 2017-01-25 12:31 | CT ---
PROCEDURE: CT Abdomen and Pelvis with contrast HISTORY: abd pain r/o pancreatitis COMPARISON: None. TECHNIQUE: Contrast dose: 100 cc of Omni 350 Radiation dose: Total exam DLP = 419 mGy-cm. This CT exam was performed using one or more of the following dose reduction techniques: Automated exposure control, adjustment of the mA and/or kV according to patient size, and/or use of iterative reconstruction technique. FINDINGS: LOWER THORAX: Unremarkable. LIVER: Unremarkable. No gross lesion or ductal dilatation. GALLBLADDER AND BILE DUCTS: Unremarkable. PANCREAS: There is a 2.5 cm pseudo cyst in the body of the pancreas. There is severe pancreatic atrophy in the body and tail. The pancreatic head is unremarkable. No evidence of acute pancreatitis. SPLEEN: Multiple varices can be seen around the splenic hilum and adjacent to the cole hepatis. The portal vein appears to be patent. The spleen is within normal limits of size. ADRENALS: Unremarkable. No mass. KIDNEYS AND URETERS: Unremarkable. No hydronephrosis. No solid mass. VASCULATURE: Unremarkable. No aortic aneurysm. BOWEL: Unremarkable. No obstruction. No gross mural thickening. APPENDIX: Normal appendix. PERITONEUM: Unremarkable. No free fluid. No free air. LYMPH NODES: Unremarkable. No enlarged lymph nodes. BLADDER: Unremarkable. REPRODUCTIVE: Unremarkable. BONES: No acute fracture. OTHER FINDINGS: None. IMPRESSION: Small pancreatic pseudocyst and severe pancreatic atrophy consistent with chronic pancreatitis. There is no acute inflammation. Splenic and portal varices No acute intra-abdominal findings
[2017-01-25 12:52] VITALS: BMI 25.0
[2017-01-25] MEDS ORDERED: Pneumococcal 23-Valent Vaccine IM ONE (12:53)
--- NOTE | 2017-01-25 15:02 | CP.PCM.CON ---
History of Present Illness - History of Present Illness History of Present Illness: Initial Nephrology Consultation: Assessment: Mild Hyperkalemia and HAGMA likely due to hyperglycemia and insulin defeciency Hyponatremia likely will be pseudohyponatremia due to high TGL and glucose level. diabetes Mellitus, chronic hep C and chronic pancreatitis with severe hypertryglceridemia, active smoker Plan continue with IVF> expect acidosis and hyperkalemia to get better with insulin and IV fluid also discussed option of plasmapharesis, pt says he was offered in past and he had refused He says I don't want to take any chances or risks with any invasive procedure and refused for consideration of plasmapharesis and he hopes that high triglyceride level can get better with medications alone endocrine following. also had d/w heme/onc, in case pt is agreeable for plasmapharesis. Glycemic control Further work up and management as per primary team. d/w ICU Thanks for allowing me to participate in care of your patient. Will follow patient with you. Please call if any Qs Dr Omer Hoffman Office: [phone] Chief Complaint; pain abdomen HPI: Pt is a 41 y/o M with hx of diabetes Mellitus ( x4 years), chronic hep C and chronic pancreatitis with severe hypertryglceridemia, active smoker presented with complaints of upper abdomen pain and nausea/vomitting. Renal is consulted for electrolytes management and consideration for plasmapharesis for his high tryglyceride Denies chest pain, palpitation, shortness of breath, leg swelling Denies blood or bubbles in urine he reports chronic and recurring GI symptoms as mentioned above ROS: Constitutional Symptoms: Denies fever. No chills. reports some Wt loss Eyes: denies change in vision, denies watery eyes, denies double vision Ears/Nose/Mouth/Throat: Denies Abnormal Taste. No Bad breath or Bad Taste. Cardiovascular: No chest pain. There is no shortness of breath. No palpitations. Pulmonary: No shortness of breath or cough. Gastrointestinal: c/o abdominal pain c/o nausea. c/o vomiting. Denies change in bowel habits. Denies Bleeding Genitourinary: No Change in force of strain when urinating. No increase in urinary frequency. No pain while urinating. Denies blood in urine. Neurological: Denies headaches. No dizziness. Denies loss of balance. Denies weakness, denies tingling/numbness Dermatological: No Rash or Bruising or ulcers. Psychiatric: Denies Anxiety. No depression. Denies hallucinations. Rheumatological: No joint pain. Denies Joint swelling Endocrine: Denies over tiredness. Denies Fatigue and Heat/Cold Intolerance. Physical Examination: General Appearance: Comfortable, in no acute respiratory distress, co-operative . Vitals reviewed and noted as below Head; Atraumatic, normocephalic ENT: no ulcers no thrush. Tongue is midline. Oropharynx: no rash or ulcers. EYES: Pupils are equal, round and reactive to light accommodation. Eye muscles and extraocular movement intact. Sclera is anicteric. Neck; supple no lymphadenopathy, no thyromegaly or bruit Lungs: Normal respiratory rate/effort. Breath sounds bilateral equal and clear Heart: Normal rate. s1s2 normal. No rub or gallop. Extremities: no edema. No varicose veins Neurological: Patient is alert, awake and oriented to person, place and time. No focal deficit. Strength bilateral appropriate and equal Skin: Warm and dry. Normal turgor. No rash. Palpitation: Normal elasticity for age Abdomen: Abdomen is soft. Bowel sounds +. There is epigastric abdominal tenderness, no rigidity or organomegaly Psych: normal insight and normal affect/mood MSK: no joint tenderness or swelling. Digits and nails normal, no deformity : kidney or bladder not palpable Labs/imaging/EKG reviewed. Past medical history, past surgical history, family history, social history, allergy reviewed and noted as below Past Patient History - Infectious Disease Hx of Infectious Diseases: None - Tetanus Immunizations Tetanus Immunization: Unknown - Past Medical History & Family History Past Medical History?: Yes - Past Social History Smoking Status: cigar x4pd - CARDIAC Hx Cardiac Disorders: Yes Hx Cardia Arrhythmia: Yes (bradycardia) Hx Hypertension: Yes - PULMONARY Hx Respiratory Disorders: No - NEUROLOGICAL Hx Neurological Disorder: No - HEENT Hx HEENT Problems: Yes (blurry vision) - RENAL Hx Chronic Kidney Disease: Yes Hx Kidney Stones: Yes - ENDOCRINE/METABOLIC Hx Endocrine Disorders: Yes Hx Diabetes Mellitus Type 1: Yes - HEMATOLOGICAL/ONCOLOGICAL Hx Blood Disorders: Yes Hx Hepatitis C: Yes - INTEGUMENTARY Hx Dermatological Problems: No - MUSCULOSKELETAL/RHEUMATOLOGICAL Hx Falls: Yes (past) - GASTROINTESTINAL Hx Gastrointestinal Disorders: Yes Hx Gastroesophageal Reflux: Yes Hx Pancreatitis: Yes - GENITOURINARY/GYNECOLOGICAL Hx Genitourinary Disorders: Yes Hx Urinary Tract Infection: Yes - PSYCHIATRIC Hx Substance Use: No - SURGICAL HISTORY Hx Appendectomy: Yes Hx Cholecystectomy: Yes Other/Comment: cyst removal panc - ANESTHESIA Hx Anesthesia: Yes Hx Anesthesia Reactions: No Hx Malignant Hyperthermia: No Meds Allergies/Adverse Reactions: Allergies Allergy/AdvReac Type Severity Reaction Status Date / Time dy Allergy Mild ITCHING Uncoded 01/25/17 08:10 hair color dye Allergy RASH Uncoded 01/25/17 08:10 - Medications Medications: Current Medications Insulin Human Regular 100 (units/ Sodium Chloride) 100 mls @ 8 mls/hr IV .[id number] PRN; Protocol; 8 UNITS/HR PRN Reason: TITRATE PER MD ORDER Last Titration: 01/25/17 13:54 Dose: 1.5 units/hr, 1.5 mls/hr Sodium Chloride (Sodium Chloride 0.9%) 1,000 mls @ 150 mls/hr IV .Q6H40M STA Stop: 01/25/17 16:00 Last Admin: 01/25/17 13:07 Dose: 150 mls/hr Morphine Sulfate (Morphine) 2 mg IVP Q4H PRN PRN Reason: severe pain Ondansetron HCl (Zofran Inj) 4 mg IVP Q6H PRN PRN Reason: Nausea/Vomiting Pantoprazole Sodium (Protonix Inj) 40 mg IVP DAILY DO Results - Vital Signs Recent Vital Signs: Last Vital Signs Temp 97.8 F 01/25/17 12:35 Pulse 51 L 01/25/17 12:35 Resp 16 01/25/17 12:35 BP 137/70 01/25/17 12:35 Pulse Ox 99 01/25/17 11:15 - Labs Result Diagrams: 01/25/17 09:25 01/25/17 15:30
[2017-01-25] MEDS: Morphine 2 mg/ml ISec IVP PRN ×2 (15:46→20:13)
[2017-01-25 16:10] LABS: ALKALINE PHOSPHATASE 122 U/L (38-133); ALT/SGPT 63 U/L (7-56); AST/SGOT 93 U/L (15-59); BILIRUBIN,TOTAL 1.2 mg/dL (0.2-1.3); BLOOD UREA NITROGEN 9 mg/dL (7-21); CALCIUM 8.6 mg/dL (8.4-10.5); CARBON DIOXIDE 17 mmol/L (21-33); CHLORIDE 103 mmol/L (98-107); GFR AFRICAN-AMERICAN > 60; SODIUM 136 mmol/L (132-148); TOTAL PROTEIN 8.2 g/dL (5.8-8.3)
[2017-01-25 16:11] LABS: GLUCOSE,RANDOM 159 mg/dL (70-110)
[2017-01-25 16:33] LABS: TROPONIN I < 0.01 ng/mL
--- NOTE | 2017-01-25 17:20 | CON ---
DATE: 01/25/2017 HISTORY OF PRESENT ILLNESS: This is a 41-year-old male with known history of type 2 insulin-requirin g diabetes, presenting here with diffuse abdominal pain and supervening nausea, dyspepsia, and intrac table vomiting and has been evaluated to have acute pancreatitis on the background of chronic recurre nt pancreatitis with associated marked dyslipidemia. PAST MEDICAL HISTORY: As mentioned above, history of type 2 insulin-requiring diabetes on a premixed insulin regimen using Humulin 70/30 given as 20 units b.i.d. with recent variable oral intake and al so recent glycemic fluctuations as noted thereof, history of hypertension and dyslipidemia, history o f hepatitis C, previously on medical therapy for the aforementioned, history of chronic pancreatitis and has had multiple admissions for exacerbations of the same and he has been using gemfibrozil medic ations over the past few years prior to admission. Had a prior open cholecystectomy and appendectomy in the past with also previous resection of pancreatic pseudocyst as noted. Also, history of diffuse osteoarthritis, currently on Percocet medications for pain relief as noted. SOCIAL HISTORY: The patient has supportive family. Admits to smoking cigars daily with no prior alc ohol or illicit drug use. REVIEW OF SYSTEMS: As mentioned above, admits to generalized body weakness with easy fatigability an d tiredness and suboptimal energy level. Also admits to episodic dizziness and lightheadedness, wors e on the day of admission. No chest pains or palpitations or PNDs. His oral intake has been variabl e and suboptimal with recent nausea, dyspepsia and variable oral intake with supervening diffuse abdo pricilla pain followed shortly by intractable bilious vomiting episodes as noted, prompting this admissi on. No recent alterations of bowel or urinary patterns. PHYSICAL EXAMINATION: GENERAL: An average built male in no apparent distress. VITAL SIGNS: Blood pressure of 140/80, pulse of 60 beats per minute and regular, temperature 98, res pirations 20. Height is 6 feet, weight is 185 pounds. HEENT: Head normocephalic. Eyes anicteric with pink conjunctivae. Fundoscopy not possible at this time. Ears, nose and throat otherwise normal. NECK: Supple. Thyroid gland is normal size. No carotid bruits. No cervical adenopathy. CARDIOPULMONARY: Some adynamic precordium. S1, S2 is rapid and regular. LUNGS: Clear to auscultation. ABDOMEN: Flat, soft with positive bowel sounds. EXTREMITIES: No peripheral edema. Pulses are +2 bilaterally. LABORATORY DATA: Initial chemistries showed a BUN of 10, sodium 132, potassium 5.6, chloride 100, CO 2 18, glucose 281 and creatinine 0.6. His triglyceride level was 3583. Cholesterol is 254, LDL less than 30. His liver transaminases are elevated as noted. Glucose levels have ranged from 164 to 172 . ASSESSMENT: This is a 41-year-old male with uncontrolled and decompensated type 2 insulin-requiring diabetes related to the intercurrent physical stressors with a subtherapeutic insulin regimen, presen ting here with acute exacerbation of chronic recurrent pancreatitis, most likely related to underlyin g dyslipidemia, possibly of familial time, although no exact documentation noted at this time. The p ossibility of the so-called familial combined dyslipidemia has to be excluded at this time as noted, especially with the recurrent aforementioned admissions for chronic recurrent pancreatitis. We will concur with the present insulin drip infusion as given, not only for the control of the mild ketosis, but also for the marked hypertriglyceridemia as noted. With the ongoing insulin deficiency, would a lso expect inhibition of the lipoprotein lipase enzyme, which would contribute also further to the ma rked triglyceride elevations as noted. Would highly recommend plasmapheresis, but apparently the [facility] ient has refused the recommended procedure at this time. We will obtain a lipoprotein fractionation or phenotyping to possibly confirm and/or indicate the presence of underlying familial combined dysli pidemia. Would actually prefer the fenofibrate medications upon discharge, combined with fish oil pr eparations at the higher dose of 4 grams per day. Would also recommend a combination of any statin p reparations upon discharge also. We will obtain a hemoglobin A1c to confirm his prior glycemic contr ol and baseline thyroid function studies will be ordered. We will obtain serial chemistries and supp lement accordingly as needed. We will also continue the vigorous IV hydration to at this time as ord ered. We will follow. Gaby Saavedra MD cc: [id number] TT: 01/25/2017 17:19:10 Confirmation # [id number] Dictation # [id number] ln
[2017-01-25] MEDS: Sodium Chloride 0.9% 1,000 ML IV SCH (17:21)
[2017-01-25] MEDS ORDERED: Morphine 2 mg/ml ISec IVP ONE (17:58)
--- NOTE | 2017-01-25 19:38 | CP.PCM.CON ---
History of Present Illness - History of Present Illness History of Present Illness: Patient seen in MICU. This is a 40 year old male with h/o DM, HCV treatment naive with unknown risk factor, extensive h/o pancreatitis c/b pseudocyst formation s/p rescetion at [facility] as per patient in 2016, infection, and pancreatic surgery who presents with recurrent abdominal pain. He reports severe pain in the epigastric area, which is sharp, constant, radiating to the back. He has associated nausea and vomiting. Pain is similar to prior episodes. He denies chest pain or SOB or fever. He had appendix rupture in 2009 in [place] and thinks he had pancreatic trauma during that surgery. He had cholecystectomy, ERCP at [facility] and pancreatic surgery for infected pseudocyst in 2016. He reports chronic constipation. He has trouble moving his bowels with straining. Reports prior history of pancreatic fna negative for malignancy. He is on pancreatic enzymes at home tid Review of Systems - Review of Systems Review of Systems: 12 point ROS as documented in HPI otherwise negative Past Patient History - Infectious Disease Hx of Infectious Diseases: None - Tetanus Immunizations Tetanus Immunization: Unknown - Past Medical History & Family History Past Medical History?: Yes - Past Social History Smoking Status: Light Smoker < 10 Cigarettes Daily - CARDIAC Hx Cardiac Disorders: Yes Hx Cardia Arrhythmia: Yes (bradycardia) Hx Hypertension: Yes - PULMONARY Hx Respiratory Disorders: No - NEUROLOGICAL Hx Neurological Disorder: No - HEENT Hx HEENT Problems: Yes (blurry vision) - RENAL Hx Chronic Kidney Disease: Yes Hx Kidney Stones: Yes - ENDOCRINE/METABOLIC Hx Endocrine Disorders: Yes Hx Diabetes Mellitus Type 1: Yes - HEMATOLOGICAL/ONCOLOGICAL Hx Blood Disorders: Yes Hx Hepatitis C: Yes - INTEGUMENTARY Hx Dermatological Problems: No - MUSCULOSKELETAL/RHEUMATOLOGICAL Hx Falls: Yes - GASTROINTESTINAL Hx Gastrointestinal Disorders: Yes Hx Gastroesophageal Reflux: Yes Hx Pancreatitis: Yes - GENITOURINARY/GYNECOLOGICAL Hx Genitourinary Disorders: Yes Hx Urinary Tract Infection: Yes - PSYCHIATRIC Hx Psychophysiologic Disorder: No Hx Substance Use: No - SURGICAL HISTORY Hx Appendectomy: Yes Hx Cholecystectomy: Yes Other/Comment: cyst removal panc - ANESTHESIA Hx Anesthesia: Yes Hx Anesthesia Reactions: No Hx Malignant Hyperthermia: No Meds Allergies/Adverse Reactions: Allergies Allergy/AdvReac Type Severity Reaction Status Date / Time dy Allergy Mild ITCHING Uncoded 01/25/17 08:10 hair color dye Allergy RASH Uncoded 01/25/17 08:10 - Medications Medications: Current Medications Insulin Human Regular 100 (units/ Sodium Chloride) 100 mls @ 8 mls/hr IV .[id number] PRN; Protocol; 8 UNITS/HR PRN Reason: TITRATE PER MD ORDER Last Titration: 01/25/17 13:54 Dose: 1.5 units/hr, 1.5 mls/hr Morphine Sulfate (Morphine) 2 mg IVP Q4H PRN PRN Reason: severe pain Last Admin: 01/25/17 15:46 Dose: 2 mg Ondansetron HCl (Zofran Inj) 4 mg IVP Q6H PRN PRN Reason: Nausea/Vomiting Pantoprazole Sodium (Protonix Inj) 40 mg IVP DAILY DO Physical Exam - Constitutional Appears: Non-toxic - Head Exam Head Exam: ATRAUMATIC, NORMAL INSPECTION, NORMOCEPHALIC Additional comments: scleral icterus negative - Eye Exam Eye Exam: Normal appearance Pupil Exam: PERRL - ENT Exam ENT Exam: Mucous Membranes Moist - Respiratory Exam Respiratory Exam: Clear to Auscultation Bilateral, NORMAL BREATHING PATTERN - Cardiovascular Exam Cardiovascular Exam: REGULAR RHYTHM, RRR, +S1, +S2 - GI/Abdominal Exam GI & Abdominal Exam: Diminished Bowel Sounds, Soft Additional comments: Non tender. No guarding. Mild tenderness on palpation - Extremities Exam Extremities exam: Positive for: full ROM - Neurological Exam Neurological exam: Alert, Oriented x3 - Psychiatric Exam Psychiatric exam: Normal Affect, Normal Mood - Skin Skin Exam: Dry, Normal Color, Warm Results - Vital Signs Recent Vital Signs: Last Vital Signs Temp 97.8 F 01/25/17 12:35 Pulse 62 01/25/17 15:29 Resp 17 01/25/17 15:20 BP 137/70 01/25/17 12:35 Pulse Ox 99 01/25/17 15:20 - Labs Result Diagrams: 01/25/17 09:25 01/25/17 15:30 Labs: Laboratory Results - last 24 hr 01/25/17 01/25/17 01/25/17 13:48 14:37 15:30 Sodium 136 Potassium 4.0 Chloride 103 Carbon Dioxide 17 L Anion Gap 20 BUN 9 Creatinine 0.4 L Est GFR ( Amer) > 60 Est GFR (Non-Af Amer) > 60 POC Glucose (mg/dL) 174 H 164 H Random Glucose 159 H Calcium 8.6 Total Bilirubin 1.2 AST 93 H ALT 63 H Alkaline Phosphatase 122 Lactate Dehydrogenase 742 H Total Creatine Kinase 123 Total Protein 8.2 Albumin 4.0 Globulin 4.2 Albumin/Globulin Ratio 1.0 L 01/25/17 15:41 Sodium Potassium Chloride Carbon Dioxide Anion Gap BUN Creatinine Est GFR ( Amer) Est GFR (Non-Af Amer) POC Glucose (mg/dL) 172 H Random Glucose Calcium Total Bilirubin AST ALT Alkaline Phosphatase Lactate Dehydrogenase Total Creatine Kinase Total Protein Albumin Globulin Albumin/Globulin Ratio - Imaging and Cardiology CT scan - abdomen Status: Report reviewed by me Assessment & Plan - Assessment and Plan (Free Text) Assessment: 41 yr old norwegian male with chronic HCV treatment naive and chronic pancreatitis (denies alcohol intake), admitted with abdominal pain, hyperTG and CT showing 2.5 cm pancreatic pseudocyst with pancreatic atrophy. Patients pain is chronic due to pancreatitis which was controlled on pancreatic enzymes tid at home and anti CH medications. He recently ran out of antilipidemic medications and hence the hyperTG. His GB and bile ducts are normal on CT scan. He is on Insulin gtt with no biochemical abnormality to portray acute pancreatitis and has normal lipase and no acute inflammation features on CT scan. He has mildly elevated transminases likely due to chronic HCV. He has splenic varices on CT scan and hence will benefit from sonogram abdomen with dopplers to rule out splenic vein thrombosis. Will continue IVF. Has had endoscopic pancreatic evaluations at [facility] with Dr Salomon. Has poor outpatient follow up. No indication for endoscopic or luminal imaging Plan: HyperTG Chronic pancreatitis Spenic varices Chronic HCV - Continue IVF at 150 cc/hr - Trend daily labs - Pain management as needed - NPO - Sonogram with doppler to rule out SV thrombus - Send HCv viral load and GT - Endocrine evaluation - Start gemfibrozil - Councelled patient at length in [place] the need for close outpatient follow up - DVT prophylaxis - Will follow - Date & Time Date: 01/25/17 Time: 19:30
[2017-01-25 20:40] LABS: TROPONIN I < 0.01 ng/mL
[2017-01-25] MEDS ORDERED: Morphine 2 mg/ml ISec IVP STA (21:34)
[2017-01-26] MEDS: Morphine 2 mg/ml ISec IVP PRN ×6 (00:07→20:48)
[2017-01-26] MEDS: Sodium Chloride 0.9% 1,000 ML IV SCH ×2 (01:18→15:00)
[2017-01-26 03:20] LABS: ADD MANUAL DIFF? NO
[2017-01-26 03:46] LABS: BASO # 0.03 K/mm3 (0.0-2.0); BASO % 0.5 % (0.0-3.0); EOS # 0.1 (0.0-0.7); GRAN # 3.99 (1.4-6.5); GRAN % 66.3 % (50.0-68.0); HEMATOCRIT 36.4 % (42.0-52.0); LYMPH # 1.6 (1.2-3.4); LYMPH % 27.2 % (22.0-35.0); MEAN CELL VOLUME 73.5 fL (80.0-105.0); MEAN CORPUSCULAR HEMOGLOBIN 27.1 pg (25.0-35.0); MEAN CORPUSCULAR HGB CONC 36.8 g/dl (31.0-37.0); MEAN PLATELET VOLUME 11.8 fl (7.0-11.0); MONO # 0.3 (0.1-0.6); PLATELET COUNT 161 10^3/uL (120.0-450.0); RED CELL DISTRIBUTION WIDTH 15.5 % (11.5-14.5)
[2017-01-26 03:49] LABS: ALB/GLOB RATIO 0.9 (1.1-1.8); ALKALINE PHOSPHATASE 111 U/L (38-133); ALT/SGPT 60 U/L (7-56); AST/SGOT 48 U/L (15-59); BILIRUBIN,TOTAL 0.8 mg/dL (0.2-1.3); BLOOD UREA NITROGEN 9 mg/dL (7-21); CALCIUM 8.3 mg/dL (8.4-10.5); CARBON DIOXIDE 22 mmol/L (21-33); CHLORIDE 105 mmol/L (98-107); CHOLESTEROL 212 mg/dL (130-200); GFR AFRICAN-AMERICAN > 60; GLUCOSE,RANDOM 127 mg/dL (70-110); LIPASE 39 U/L (23-300); POTASSIUM 3.5 mmol/L (3.6-5.0); SODIUM 136 mmol/L (132-148); TOTAL PROTEIN 7.3 g/dL (5.8-8.3)
[2017-01-26 04:06] LABS: TROPONIN I < 0.01 ng/mL
[2017-01-26 06:36] LABS: URINE BILIRUBIN SMALL (NEGATIVE); URINE BLOOD NEGATIVE (NEGATIVE); URINE GLUCOSE (UA) >=1000 mg/dL (NEGATIVE); URINE KETONE >=80 mg/dL (NEGATIVE); URINE LEUKOCYTE ESTERASE NEGATIVE Leu/uL (NEGATIVE); URINE PROTEIN TRACE mg/dL (<30 mg/dL); URINE UROBILINOGEN 0.2 E.U./dL (<1 E.U./dL)
[2017-01-26 06:39] LABS: URINE APPEARANCE SL CLOUDY (CLEAR); URINE COLOR YELLOW (YELLOW)
[2017-01-26 06:46] LABS: URINE RBC 0 - 2 /hpf (0-2)
[2017-01-26 06:47] LABS: URINE BACTERIA SMALL (NEG)
--- NOTE | 2017-01-26 09:56 | CP.PCM.PN ---
Subjective - Date & Time of Evaluation Date of Evaluation: 01/26/17 Time of Evaluation: 09:48 - Subjective Subjective: Patient seen and examined in ICU. No acute events. Complains of nausea without vomiting. Complains of persistent abdominal pain. Remains on insulin gtt. No BM. ROS otherwise negative in detail Objective - Vital Signs/Intake and Output Vital Signs (last 24 hours): Temp Pulse Resp BP Pulse Ox 98.4 F 54 L 16 138/70 99 01/26/17 04:00 01/26/17 05:00 01/26/17 05:00 01/26/17 05:00 01/26/17 05:00 Intake and Output: 01/26/17 01/26/17 06:59 18:59 Intake Total 1809.5 1 Output Total 1000 Balance 809.5 1 - Medications Medications: Current Medications Heparin Sodium (Porcine) (Heparin) 5,000 units SC Q8 DO PRN Reason: Protocol Last Admin: 01/26/17 06:10 Dose: 5,000 units Insulin Human Regular 100 (units/ Sodium Chloride) 100 mls @ 8 mls/hr IV .[id number] PRN; Protocol; 8 UNITS/HR PRN Reason: TITRATE PER MD ORDER Last Titration: 01/26/17 09:03 Dose: 1 units/hr, 1 mls/hr Sodium Chloride (Sodium Chloride 0.9%) 1,000 mls @ 150 mls/hr IV .Q6H40M [facility] Last Admin: 01/26/17 01:18 Dose: 150 mls/hr Potassium Chloride (Potassium Chloride 20 Meq/100 Ml) 20 meq in 100 mls @ 50 mls/hr IVPB Q2H [facility] Stop: 01/26/17 10:14 Last Admin: 01/26/17 07:41 Dose: 50 mls/hr Morphine Sulfate (Morphine) 2 mg IVP Q4H PRN PRN Reason: severe pain Last Admin: 01/26/17 08:53 Dose: 2 mg Ondansetron HCl (Zofran Inj) 4 mg IVP Q4H PRN PRN Reason: Nausea/Vomiting Last Admin: 01/26/17 09:26 Dose: 4 mg Pantoprazole Sodium (Protonix Inj) 40 mg IVP DAILY [facility] Last Admin: 01/26/17 09:22 Dose: 40 mg - Labs Labs: 01/26/17 03:08 01/26/17 03:08 PT 11.8 Seconds (9.9-11.8) 01/25/17 09:25 INR 1.08 (0.93-1.08) 01/25/17 09:25 APTT 38.7 Seconds (23.7-30.8) H 01/25/17 09:25 - Constitutional Appears: No Acute Distress - Eye Exam Eye Exam: absent: Scleral icterus - ENT Exam ENT Exam: Mucous Membranes Moist - Respiratory Exam Respiratory Exam: Clear to Ausculation Bilateral - Cardiovascular Exam Cardiovascular Exam: +S1, +S2 - GI/Abdominal Exam Additional comments: abdomen soft, +diffusely tender to palpation without rebound/guarding, bowel sounds present - Extremities Exam Extremities Exam: absent: Pedal Edema - Neurological Exam Neurological Exam: Alert, Oriented x3 - Skin Skin Exam: Dry Assessment and Plan - Assessment and Plan (Free Text) Assessment: This is a 41 year old male with h/o HCV ([place]), chronic pancreatitis who is admitted with abdominal pain in setting of severe hypertriglyceridemia. CT with pancreatic atrophy and 2.5cm pseudocyst, splenic/portal varices, normal lipase. Plan: Continue supportive care Continue insulin gtt, monitor TG (currently downtrending) Pain control Antiemetic therapy as needed Abdominal ultrasound with dopplers pending, varices possibly due to splenic vein thrombosis from chronic pancreatitis Monitor H/H, no GI bleeding at present Will continue to monitor and make recommendations pending clinical status
--- NOTE | 2017-01-26 10:23 | CP.PCM.PN ---
Subjective - Date & Time of Evaluation Date of Evaluation: 01/26/17 Time of Evaluation: 10:17 - Subjective Subjective: Follow up Nephrology note Assessment: Mild Hyperkalemia and HAGMA likely due to hyperglycemia and insulin deficiency: RESOLVED Hyponatremia likely will be pseudohyponatremia due to high TGL and glucose level : RESOLVED diabetes Mellitus, chronic hep C and chronic pancreatitis with severe hypertryglceridemia, active smoker Plan electrolytes stable now. acidosis resolved. no further renal work up indicated had discussed option of plasmapharesis, pt says he was offered in past and he had refused. He says I don't want to take any chances or risks with any invasive procedure and refused for consideration of plasmapharesis and he hopes that high triglyceride level can get better with medications alone his TGL level better today endocrine following. smoking cessation Further work up and management as per primary team. d/w ICU Thanks for allowing me to participate in care of your patient. Will sign off. Please call if any Qs Dr Omer Hoffman Office: [phone] Subjective: feels better. reports chronic upper abdomen pain. has nausea no vomiting. reports mild burning with urination Physical Examination: General Appearance: Comfortable, in no acute respiratory distress, co-operative . Vitals reviewed and noted as below Lungs: Normal respiratory rate/effort. Breath sounds bilateral equal and clear Heart: Normal rate. s1s2 normal. No rub or gallop. Extremities: no edema. No varicose veins Neurological: Patient is alert, awake and oriented to person, place and time. No focal deficit. Strength bilateral appropriate and equal Skin: Warm and dry. Normal turgor. No rash. Palpitation: Normal elasticity for age Abdomen: Abdomen is soft. Bowel sounds +. There is minimal epigastric tenderness , no rigidity or organomegaly : kidney or bladder not palpable Labs/imaging/EKG reviewed. Past medical history, past surgical history, family history, social history, allergy reviewed CT abdomen: unremarkable kidneys and adrenals UA: no nitrite or LE. trace protein no blood large glucose and had ketones TGL level 1072 Objective - Vital Signs/Intake and Output Vital Signs (last 24 hours): Temp Pulse Resp BP Pulse Ox 98.4 F 54 L 16 138/70 99 01/26/17 04:00 01/26/17 05:00 01/26/17 05:00 01/26/17 05:00 01/26/17 05:00 Intake and Output: 01/26/17 01/26/17 06:59 18:59 Intake Total 1809.5 1 Output Total 1000 Balance 809.5 1 - Medications Medications: Current Medications Heparin Sodium (Porcine) (Heparin) 5,000 units SC Q8 DO PRN Reason: Protocol Last Admin: 01/26/17 06:10 Dose: 5,000 units Insulin Human Regular 100 (units/ Sodium Chloride) 100 mls @ 8 mls/hr IV .[id number] PRN; Protocol; 8 UNITS/HR PRN Reason: TITRATE PER MD ORDER Last Titration: 01/26/17 09:03 Dose: 1 units/hr, 1 mls/hr Sodium Chloride (Sodium Chloride 0.9%) 1,000 mls @ 150 mls/hr IV .Q6H40M [facility] Last Admin: 01/26/17 01:18 Dose: 150 mls/hr Morphine Sulfate (Morphine) 2 mg IVP Q4H PRN PRN Reason: severe pain Last Admin: 01/26/17 08:53 Dose: 2 mg Ondansetron HCl (Zofran Inj) 4 mg IVP Q4H PRN PRN Reason: Nausea/Vomiting Last Admin: 01/26/17 09:26 Dose: 4 mg Pantoprazole Sodium (Protonix Inj) 40 mg IVP DAILY [facility] Last Admin: 01/26/17 09:22 Dose: 40 mg - Labs Labs: 01/26/17 03:08 01/26/17 03:08 PT 11.8 Seconds (9.9-11.8) 01/25/17 09:25 INR 1.08 (0.93-1.08) 01/25/17 09:25 APTT 38.7 Seconds (23.7-30.8) H 01/25/17 09:25
[2017-01-26 10:32] LABS: FREE T4 1.76 ng/dL (0.78-2.19); T4 10.9 ug/dL (5.5-11.0)
[2017-01-26] MEDS ORDERED: Dextrose 5%/0.45% NS 1,000 ML IV SCH (12:30)
--- NOTE | 2017-01-26 12:57 | CP.CCUPN ---
<KingBailey - Last Filed: 01/26/17 17:15> CCU Subjective - Physician Review Events Since Last Encounter (Free Text): 01/26/17 12:56 PT s/e at bedside in the CCU this am. NAEO. Patient reports this epigastric pain radiating to his back and nausea are is unchanged since yesterday. Denies any vomiting. Also complains of sharp intermittent left sided chest pain for 3 months that is worse with deep breaths, reproducible upon palpation. Also complains of chronic BL numbness in the legs and vertigo when trying to stand this morning. Patient is afebrile, VSS, Patient's triglycerides are trending down well on the insulin drip with blood glucose remaining above 100 CCU Objective - Vital Signs / Intake & Output Intake and Output (Last 8hrs): Intake & Output 01/25/17 01/26/17 01/26/17 22:59 06:59 14:59 Intake Total 760.5 1806.5 2.5 Output Total 1000 Balance 760.5 806.5 2.5 Weight 84.096 kg Intake: IV 760.5 1806.5 2.5 Right Antecubital 750 1800 Oral 0 Output: Urine 1000 Urine, Voided 1000 Other: # Bowel Movements 0 - Physical Exam Head: Positive for: Atraumatic, Normocephalic Pupils: Positive for: PERRL. Negative for: Pinpoint Extroacular Muscles: Positive for: EOMI Conjunctiva: Positive for: Normal Mouth: Positive for: Moist Mucous Membranes Pharnyx: Negative for: ERYTHEMA, EXUDATE Nose (External): Positive for: Atraumatic Respiratory/Chest: Positive for: Clear to Auscultation, Good Air Exchange. Negative for: Respiratory Distress, Accessory Muscle Use Cardiovascular: Positive for: Regular Rate and Rhythm, Normal S1, S2, Other ( chest tenderness to palpation along the ribs of the left chest). Negative for: Murmurs Abdomen: Positive for: Tenderness (upper quadrants), Guarding, Scars (Midline surgical scar in the epigastrium and surgical scar in RUQ). Negative for: Distention, Peritoneal Signs, Rebound Back: Positive for: Normal Inspection, Paraspinal Tenderness Upper Extremity: Positive for: Normal Inspection. Negative for: Cyanosis, Edema Lower Extremity: Positive for: Normal Inspection, Capillary Refill < 2 s. Negative for: Edema, CALF TENDERNESS Neurological: Positive for: GCS=15, CN II-XII Intact, Speech Normal Skin: Positive for: Warm, Dry, Normal Color. Negative for: Rashes Psychiatric: Positive for: Alert, Oriented x 3, Normal Insight, Normal Concentration - Medications Active Medications: Active Medications Generic Name Dose Route Start Last Admin Trade Name Freq PRN Reason Stop Dose Admin Heparin Sodium (Porcine) 5,000 units 01/25/17 17:00 01/26/17 06:10 Heparin SC 5,000 units Q8 DO Administration Protocol Insulin Human Regular 100 100 mls @ 8 mls/hr 01/25/17 11:02 01/26/17 11:08 units/ Sodium Chloride IV 0.5 units/hr .[id number] PRN 0.5 mls/hr TITRATE PER MD ORDER Titration Protocol 8 UNITS/HR Sodium Chloride 1,000 mls @ 150 mls/hr 01/25/17 17:15 01/26/17 01:18 Sodium Chloride 0.9% IV 150 mls/hr .[id number] DO Administration Dextrose/Sodium Chloride 1,000 mls @ 150 mls/hr 01/26/17 12:30 Dextrose 5%/0.45% Ns 1000 Ml IV .[id number] DO Morphine Sulfate 2 mg 01/25/17 12:01 01/26/17 08:53 Morphine IVP 2 mg Q4H PRN Administration severe pain Ondansetron HCl 4 mg 01/26/17 00:39 01/26/17 09:26 Zofran Inj IVP 4 mg Q4H PRN Administration Nausea/Vomiting Pantoprazole Sodium 40 mg 01/26/17 10:00 01/26/17 09:22 Protonix Inj IVP 40 mg DAILY DO Administration - Patient Studies Lab Studies: Lab Studies 01/26/17 01/26/17 01/26/17 Range/Units 09:20 06:20 06:00 WBC (4.5-11.0) 10^3/ul RBC (3.5-6.1) 10^6/uL Hgb (14.0-18.0) gm/dL Hct (42.0-52.0) % MCV (80.0-105.0) fL MCH (25.0-35.0) pg MCHC (31.0-37.0) g/dl RDW (11.5-14.5) % Plt Count (120.0-450.0) 10^3/uL MPV (7.0-11.0) fl Gran % (50.0-68.0) % Lymph % (Auto) (22.0-35.0) % [place] % (Auto) (1.0-6.0) % Eos % (Auto) (1.5-5.0) % Baso % (Auto) (0.0-3.0) % Gran # (1.4-6.5) Lymph # (1.2-3.4) [place] # (0.1-0.6) Eos # (0.0-0.7) Baso # (0.0-2.0) K/mm3 Sodium (132-148) mmol/L Potassium (3.6-5.0) mmol/L Chloride (98-107) mmol/L Carbon Dioxide (21-33) mmol/L Anion Gap (10-20) BUN (7-21) mg/dL Creatinine (0.5-1.4) mg/dL Est GFR ( Amer) Est GFR (Non-Af Amer) POC Glucose (mg/dL) (65-110) mg/dL Random Glucose (70-110) mg/dL Calcium (8.4-10.5) mg/dL Magnesium (1.7-2.2) mg/dL Total Bilirubin (0.2-1.3) mg/dL AST (15-59) U/L ALT (7-56) U/L Alkaline Phosphatase (38-133) U/L Lactate Dehydrogenase (333-699) U/L Total Creatine Kinase (35-230) U/L Troponin I ng/mL Total Protein (5.8-8.3) g/dL Albumin (3.0-4.8) g/dL Globulin gm/dL Albumin/Globulin Ratio (1.1-1.8) Triglycerides 1121 H (35-160) mg/dL Cholesterol (130-200) mg/dL LDL Cholesterol Direct (0-129) mg/dL HDL Cholesterol (29-60) mg/dL Lipase (23-300) U/L Free T4 1.76 (0.78-2.19) ng/dL Thyroxine (T4) 10.9 (5.5-11.0) ug/dL TSH 3rd Generation (0.46-4.68) MIU/ml Urine Color Yellow (YELLOW) Urine Appearance Sl cloudy (CLEAR) Urine pH 6.0 (4.7-8.0) Ur Specific [place] 1.025 (1.005-1.035) Urine Protein Trace H (<30 mg/dL) mg/dL Urine Glucose (UA) >=1000 (NEGATIVE) mg/dL Urine Ketones >=80 (NEGATIVE) mg/dL Urine Blood Negative (NEGATIVE) Urine Nitrate Negative (NEGATIVE) Urine Bilirubin Small H (NEGATIVE) Urine Urobilinogen 0.2 (<1 E.U./dL) E.U./dL Ur Leukocyte Esterase Negative (NEGATIVE) Elba/uL Urine RBC 0 - 2 (0-2) /hpf Urine WBC 1 - 3 (0-6) /hpf Ur Epithelial Cells 1 - 3 (0-5) /hpf Urine Bacteria Small (NEG) 01/26/17 01/26/17 01/26/17 Range/Units 06:00 05:56 03:50 WBC (4.5-11.0) 10^3/ul RBC (3.5-6.1) 10^6/uL Hgb (14.0-18.0) gm/dL Hct (42.0-52.0) % MCV (80.0-105.0) fL MCH (25.0-35.0) pg MCHC (31.0-37.0) g/dl RDW (11.5-14.5) % Plt Count (120.0-450.0) 10^3/uL MPV (7.0-11.0) fl Gran % (50.0-68.0) % Lymph % (Auto) (22.0-35.0) % [place] % (Auto) (1.0-6.0) % Eos % (Auto) (1.5-5.0) % Baso % (Auto) (0.0-3.0) % Gran # (1.4-6.5) Lymph # (1.2-3.4) [place] # (0.1-0.6) Eos # (0.0-0.7) Baso # (0.0-2.0) K/mm3 Sodium (132-148) mmol/L Potassium (3.6-5.0) mmol/L Chloride (98-107) mmol/L Carbon Dioxide (21-33) mmol/L Anion Gap (10-20) BUN (7-21) mg/dL Creatinine (0.5-1.4) mg/dL Est GFR ( Amer) Est GFR (Non-Af Amer) POC Glucose (mg/dL) 130 H 140 H (65-110) mg/dL Random Glucose (70-110) mg/dL Calcium (8.4-10.5) mg/dL Magnesium 1.7 (1.7-2.2) mg/dL Total Bilirubin (0.2-1.3) mg/dL AST (15-59) U/L ALT (7-56) U/L Alkaline Phosphatase (38-133) U/L Lactate Dehydrogenase (333-699) U/L Total Creatine Kinase (35-230) U/L Troponin I ng/mL Total Protein (5.8-8.3) g/dL Albumin (3.0-4.8) g/dL Globulin gm/dL Albumin/Globulin Ratio (1.1-1.8) Triglycerides (35-160) mg/dL Cholesterol (130-200) mg/dL LDL Cholesterol Direct (0-129) mg/dL HDL Cholesterol (29-60) mg/dL Lipase (23-300) U/L Free T4 (0.78-2.19) ng/dL Thyroxine (T4) (5.5-11.0) ug/dL TSH 3rd Generation (0.46-4.68) MIU/ml Urine Color (YELLOW) Urine Appearance (CLEAR) Urine pH (4.7-8.0) Ur Specific [place] (1.005-1.035) Urine Protein (<30 mg/dL) mg/dL Urine Glucose (UA) (NEGATIVE) mg/dL Urine Ketones (NEGATIVE) mg/dL Urine Blood (NEGATIVE) Urine Nitrate (NEGATIVE) Urine Bilirubin (NEGATIVE) Urine Urobilinogen (<1 E.U./dL) E.U./dL Ur Leukocyte Esterase (NEGATIVE) Elba/uL Urine RBC (0-2) /hpf Urine WBC (0-6) /hpf Ur Epithelial Cells (0-5) /hpf Urine Bacteria (NEG) 01/26/17 01/26/17 01/26/17 Range/Units 03:08 03:08 03:08 WBC 6.0 (4.5-11.0) 10^3/ul RBC 4.95 (3.5-6.1) 10^6/uL Hgb 13.4 L (14.0-18.0) gm/dL Hct 36.4 L (42.0-52.0) % MCV 73.5 L (80.0-105.0) fL MCH 27.1 (25.0-35.0) pg MCHC 36.8 (31.0-37.0) g/dl RDW 15.5 H (11.5-14.5) % Plt Count 161 (120.0-450.0) 10^3/uL MPV 11.8 H (7.0-11.0) fl Gran % 66.3 (50.0-68.0) % Lymph % (Auto) 27.2 (22.0-35.0) % [place] % (Auto) 5.0 (1.0-6.0) % Eos % (Auto) 1.0 L (1.5-5.0) % Baso % (Auto) 0.5 (0.0-3.0) % Gran # 3.99 (1.4-6.5) Lymph # 1.6 (1.2-3.4) [place] # 0.3 (0.1-0.6) Eos # 0.1 (0.0-0.7) Baso # 0.03 (0.0-2.0) K/mm3 Sodium 136 (132-148) mmol/L Potassium 3.5 L (3.6-5.0) mmol/L Chloride 105 (98-107) mmol/L Carbon Dioxide 22 (21-33) mmol/L Anion Gap 13 (10-20) BUN 9 (7-21) mg/dL Creatinine 0.5 (0.5-1.4) mg/dL Est GFR ( Amer) > 60 Est GFR (Non-Af Amer) > 60 POC Glucose (mg/dL) (65-110) mg/dL Random Glucose 127 H (70-110) mg/dL Calcium 8.3 L (8.4-10.5) mg/dL Magnesium (1.7-2.2) mg/dL Total Bilirubin 0.8 (0.2-1.3) mg/dL AST 48 (15-59) U/L ALT 60 H (7-56) U/L Alkaline Phosphatase 111 (38-133) U/L Lactate Dehydrogenase 404 (333-699) U/L Total Creatine Kinase 110 (35-230) U/L Troponin I < 0.01 ng/mL Total Protein 7.3 (5.8-8.3) g/dL Albumin 3.5 (3.0-4.8) g/dL Globulin 3.8 gm/dL Albumin/Globulin Ratio 0.9 L (1.1-1.8) Triglycerides 1072 H (35-160) mg/dL Cholesterol 212 H (130-200) mg/dL LDL Cholesterol Direct < 30 (0-129) mg/dL HDL Cholesterol 21 L (29-60) mg/dL Lipase 39 (23-300) U/L Free T4 (0.78-2.19) ng/dL Thyroxine (T4) (5.5-11.0) ug/dL TSH 3rd Generation 0.4 L (0.46-4.68) MIU/ml Urine Color (YELLOW) Urine Appearance (CLEAR) Urine pH (4.7-8.0) Ur Specific [place] (1.005-1.035) Urine Protein (<30 mg/dL) mg/dL Urine Glucose (UA) (NEGATIVE) mg/dL Urine Ketones (NEGATIVE) mg/dL Urine Blood (NEGATIVE) Urine Nitrate (NEGATIVE) Urine Bilirubin (NEGATIVE) Urine Urobilinogen (<1 E.U./dL) E.U./dL Ur Leukocyte Esterase (NEGATIVE) Elba/uL Urine RBC (0-2) /hpf Urine WBC (0-6) /hpf Ur Epithelial Cells (0-5) /hpf Urine Bacteria (NEG) 01/26/17 01/26/17 01/26/17 Range/Units 01:56 01:04 00:03 WBC (4.5-11.0) 10^3/ul RBC (3.5-6.1) 10^6/uL Hgb (14.0-18.0) gm/dL Hct (42.0-52.0) % MCV (80.0-105.0) fL MCH (25.0-35.0) pg MCHC (31.0-37.0) g/dl RDW (11.5-14.5) % Plt Count (120.0-450.0) 10^3/uL MPV (7.0-11.0) fl Gran % (50.0-68.0) % Lymph % (Auto) (22.0-35.0) % [place] % (Auto) (1.0-6.0) % Eos % (Auto) (1.5-5.0) % Baso % (Auto) (0.0-3.0) % Gran # (1.4-6.5) Lymph # (1.2-3.4) [place] # (0.1-0.6) Eos # (0.0-0.7) Baso # (0.0-2.0) K/mm3 Sodium (132-148) mmol/L Potassium (3.6-5.0) mmol/L Chloride (98-107) mmol/L Carbon Dioxide (21-33) mmol/L Anion Gap (10-20) BUN (7-21) mg/dL Creatinine (0.5-1.4) mg/dL Est GFR ( Amer) Est GFR (Non-Af Amer) POC Glucose (mg/dL) 147 H 118 H 138 H (65-110) mg/dL Random Glucose (70-110) mg/dL Calcium (8.4-10.5) mg/dL Magnesium (1.7-2.2) mg/dL Total Bilirubin (0.2-1.3) mg/dL AST (15-59) U/L ALT (7-56) U/L Alkaline Phosphatase (38-133) U/L Lactate Dehydrogenase (333-699) U/L Total Creatine Kinase (35-230) U/L Troponin I ng/mL Total Protein (5.8-8.3) g/dL Albumin (3.0-4.8) g/dL Globulin gm/dL Albumin/Globulin Ratio (1.1-1.8) Triglycerides (35-160) mg/dL Cholesterol (130-200) mg/dL LDL Cholesterol Direct (0-129) mg/dL HDL Cholesterol (29-60) mg/dL Lipase (23-300) U/L Free T4 (0.78-2.19) ng/dL Thyroxine (T4) (5.5-11.0) ug/dL TSH 3rd Generation (0.46-4.68) MIU/ml Urine Color (YELLOW) Urine Appearance (CLEAR) Urine pH (4.7-8.0) Ur Specific [place] (1.005-1.035) Urine Protein (<30 mg/dL) mg/dL Urine Glucose (UA) (NEGATIVE) mg/dL Urine Ketones (NEGATIVE) mg/dL Urine Blood (NEGATIVE) Urine Nitrate (NEGATIVE) Urine Bilirubin (NEGATIVE) Urine Urobilinogen (<1 E.U./dL) E.U./dL Ur Leukocyte Esterase (NEGATIVE) Elba/uL Urine RBC (0-2) /hpf Urine WBC (0-6) /hpf Ur Epithelial Cells (0-5) /hpf Urine Bacteria (NEG) 01/25/17 01/25/17 01/25/17 Range/Units 23:12 21:34 20:05 WBC (4.5-11.0) 10^3/ul RBC (3.5-6.1) 10^6/uL Hgb (14.0-18.0) gm/dL Hct (42.0-52.0) % MCV (80.0-105.0) fL MCH (25.0-35.0) pg MCHC (31.0-37.0) g/dl RDW (11.5-14.5) % Plt Count (120.0-450.0) 10^3/uL MPV (7.0-11.0) fl Gran % (50.0-68.0) % Lymph % (Auto) (22.0-35.0) % [place] % (Auto) (1.0-6.0) % Eos % (Auto) (1.5-5.0) % Baso % (Auto) (0.0-3.0) % Gran # (1.4-6.5) Lymph # (1.2-3.4) [place] # (0.1-0.6) Eos # (0.0-0.7) Baso # (0.0-2.0) K/mm3 Sodium (132-148) mmol/L Potassium (3.6-5.0) mmol/L Chloride (98-107) mmol/L Carbon Dioxide (21-33) mmol/L Anion Gap (10-20) BUN (7-21) mg/dL Creatinine (0.5-1.4) mg/dL Est GFR ( Amer) Est GFR (Non-Af Amer) POC Glucose (mg/dL) 128 H 118 H (65-110) mg/dL Random Glucose (70-110) mg/dL Calcium (8.4-10.5) mg/dL Magnesium (1.7-2.2) mg/dL Total Bilirubin (0.2-1.3) mg/dL AST (15-59) U/L ALT (7-56) U/L Alkaline Phosphatase (38-133) U/L Lactate Dehydrogenase 601 (333-699) U/L Total Creatine Kinase 112 (35-230) U/L Troponin I < 0.01 ng/mL Total Protein (5.8-8.3) g/dL Albumin (3.0-4.8) g/dL Globulin gm/dL Albumin/Globulin Ratio (1.1-1.8) Triglycerides 1930 H (35-160) mg/dL Cholesterol (130-200) mg/dL LDL Cholesterol Direct (0-129) mg/dL HDL Cholesterol (29-60) mg/dL Lipase (23-300) U/L Free T4 (0.78-2.19) ng/dL Thyroxine (T4) (5.5-11.0) ug/dL TSH 3rd Generation (0.46-4.68) MIU/ml Urine Color (YELLOW) Urine Appearance (CLEAR) Urine pH (4.7-8.0) Ur Specific [place] (1.005-1.035) Urine Protein (<30 mg/dL) mg/dL Urine Glucose (UA) (NEGATIVE) mg/dL Urine Ketones (NEGATIVE) mg/dL Urine Blood (NEGATIVE) Urine Nitrate (NEGATIVE) Urine Bilirubin (NEGATIVE) Urine Urobilinogen (<1 E.U./dL) E.U./dL Ur Leukocyte Esterase (NEGATIVE) Elba/uL Urine RBC (0-2) /hpf Urine WBC (0-6) /hpf Ur Epithelial Cells (0-5) /hpf Urine Bacteria (NEG) 01/25/17 01/25/17 01/25/17 Range/Units 19:45 18:23 17:52 WBC (4.5-11.0) 10^3/ul RBC (3.5-6.1) 10^6/uL Hgb (14.0-18.0) gm/dL Hct (42.0-52.0) % MCV (80.0-105.0) fL MCH (25.0-35.0) pg MCHC (31.0-37.0) g/dl RDW (11.5-14.5) % Plt Count (120.0-450.0) 10^3/uL MPV (7.0-11.0) fl Gran % (50.0-68.0) % Lymph % (Auto) (22.0-35.0) % [place] % (Auto) (1.0-6.0) % Eos % (Auto) (1.5-5.0) % Baso % (Auto) (0.0-3.0) % Gran # (1.4-6.5) Lymph # (1.2-3.4) [place] # (0.1-0.6) Eos # (0.0-0.7) Baso # (0.0-2.0) K/mm3 Sodium (132-148) mmol/L Potassium (3.6-5.0) mmol/L Chloride (98-107) mmol/L Carbon Dioxide (21-33) mmol/L Anion Gap (10-20) BUN (7-21) mg/dL Creatinine (0.5-1.4) mg/dL Est GFR ( Amer) Est GFR (Non-Af Amer) POC Glucose (mg/dL) 135 H 144 H 142 H (65-110) mg/dL Random Glucose (70-110) mg/dL Calcium (8.4-10.5) mg/dL Magnesium (1.7-2.2) mg/dL Total Bilirubin (0.2-1.3) mg/dL AST (15-59) U/L ALT (7-56) U/L Alkaline Phosphatase (38-133) U/L Lactate Dehydrogenase (333-699) U/L Total Creatine Kinase (35-230) U/L Troponin I ng/mL Total Protein (5.8-8.3) g/dL Albumin (3.0-4.8) g/dL Globulin gm/dL Albumin/Globulin Ratio (1.1-1.8) Triglycerides (35-160) mg/dL Cholesterol (130-200) mg/dL LDL Cholesterol Direct (0-129) mg/dL HDL Cholesterol (29-60) mg/dL Lipase (23-300) U/L Free T4 (0.78-2.19) ng/dL Thyroxine (T4) (5.5-11.0) ug/dL TSH 3rd Generation (0.46-4.68) MIU/ml Urine Color (YELLOW) Urine Appearance (CLEAR) Urine pH (4.7-8.0) Ur Specific [place] (1.005-1.035) Urine Protein (<30 mg/dL) mg/dL Urine Glucose (UA) (NEGATIVE) mg/dL Urine Ketones (NEGATIVE) mg/dL Urine Blood (NEGATIVE) Urine Nitrate (NEGATIVE) Urine Bilirubin (NEGATIVE) Urine Urobilinogen (<1 E.U./dL) E.U./dL Ur Leukocyte Esterase (NEGATIVE) Elba/uL Urine RBC (0-2) /hpf Urine WBC (0-6) /hpf Ur Epithelial Cells (0-5) /hpf Urine Bacteria (NEG) 01/25/17 01/25/17 01/25/17 Range/Units 15:41 15:30 14:37 WBC (4.5-11.0) 10^3/ul RBC (3.5-6.1) 10^6/uL Hgb (14.0-18.0) gm/dL Hct (42.0-52.0) % MCV (80.0-105.0) fL MCH (25.0-35.0) pg MCHC (31.0-37.0) g/dl RDW (11.5-14.5) % Plt Count (120.0-450.0) 10^3/uL MPV (7.0-11.0) fl Gran % (50.0-68.0) % Lymph % (Auto) (22.0-35.0) % [place] % (Auto) (1.0-6.0) % Eos % (Auto) (1.5-5.0) % Baso % (Auto) (0.0-3.0) % Gran # (1.4-6.5) Lymph # (1.2-3.4) [place] # (0.1-0.6) Eos # (0.0-0.7) Baso # (0.0-2.0) K/mm3 Sodium 136 (132-148) mmol/L Potassium 4.0 (3.6-5.0) mmol/L Chloride 103 (98-107) mmol/L Carbon Dioxide 17 L (21-33) mmol/L Anion Gap 20 (10-20) BUN 9 (7-21) mg/dL Creatinine 0.4 L (0.5-1.4) mg/dL Est GFR ( Amer) > 60 Est GFR (Non-Af Amer) > 60 POC Glucose (mg/dL) 172 H 164 H (65-110) mg/dL Random Glucose 159 H (70-110) mg/dL Calcium 8.6 (8.4-10.5) mg/dL Magnesium (1.7-2.2) mg/dL Total Bilirubin 1.2 (0.2-1.3) mg/dL AST 93 H (15-59) U/L ALT 63 H (7-56) U/L Alkaline Phosphatase 122 (38-133) U/L Lactate Dehydrogenase 742 H (333-699) U/L Total Creatine Kinase 123 (35-230) U/L Troponin I < 0.01 ng/mL Total Protein 8.2 (5.8-8.3) g/dL Albumin 4.0 (3.0-4.8) g/dL Globulin 4.2 gm/dL Albumin/Globulin Ratio 1.0 L (1.1-1.8) Triglycerides 2376 H (35-160) mg/dL Cholesterol (130-200) mg/dL LDL Cholesterol Direct (0-129) mg/dL HDL Cholesterol (29-60) mg/dL Lipase (23-300) U/L Free T4 (0.78-2.19) ng/dL Thyroxine (T4) (5.5-11.0) ug/dL TSH 3rd Generation (0.46-4.68) MIU/ml Urine Color (YELLOW) Urine Appearance (CLEAR) Urine pH (4.7-8.0) Ur Specific [place] (1.005-1.035) Urine Protein (<30 mg/dL) mg/dL Urine Glucose (UA) (NEGATIVE) mg/dL Urine Ketones (NEGATIVE) mg/dL Urine Blood (NEGATIVE) Urine Nitrate (NEGATIVE) Urine Bilirubin (NEGATIVE) Urine Urobilinogen (<1 E.U./dL) E.U./dL Ur Leukocyte Esterase (NEGATIVE) Elba/uL Urine RBC (0-2) /hpf Urine WBC (0-6) /hpf Ur Epithelial Cells (0-5) /hpf Urine Bacteria (NEG) 01/25/17 01/25/17 01/25/17 Range/Units 13:48 12:28 11:30 WBC (4.5-11.0) 10^3/ul RBC (3.5-6.1) 10^6/uL Hgb (14.0-18.0) gm/dL Hct (42.0-52.0) % MCV (80.0-105.0) fL MCH (25.0-35.0) pg MCHC (31.0-37.0) g/dl RDW (11.5-14.5) % Plt Count (120.0-450.0) 10^3/uL MPV (7.0-11.0) fl Gran % (50.0-68.0) % Lymph % (Auto) (22.0-35.0) % [place] % (Auto) (1.0-6.0) % Eos % (Auto) (1.5-5.0) % Baso % (Auto) (0.0-3.0) % Gran # (1.4-6.5) Lymph # (1.2-3.4) [place] # (0.1-0.6) Eos # (0.0-0.7) Baso # (0.0-2.0) K/mm3 Sodium (132-148) mmol/L Potassium (3.6-5.0) mmol/L Chloride (98-107) mmol/L Carbon Dioxide (21-33) mmol/L Anion Gap (10-20) BUN (7-21) mg/dL Creatinine (0.5-1.4) mg/dL Est GFR ( Amer) Est GFR (Non-Af Amer) POC Glucose (mg/dL) 174 H 251 H 246 H (65-110) mg/dL Random Glucose (70-110) mg/dL Calcium (8.4-10.5) mg/dL Magnesium (1.7-2.2) mg/dL Total Bilirubin (0.2-1.3) mg/dL AST (15-59) U/L ALT (7-56) U/L Alkaline Phosphatase (38-133) U/L Lactate Dehydrogenase (333-699) U/L Total Creatine Kinase (35-230) U/L Troponin I ng/mL Total Protein (5.8-8.3) g/dL Albumin (3.0-4.8) g/dL Globulin gm/dL Albumin/Globulin Ratio (1.1-1.8) Triglycerides (35-160) mg/dL Cholesterol (130-200) mg/dL LDL Cholesterol Direct (0-129) mg/dL HDL Cholesterol (29-60) mg/dL Lipase (23-300) U/L Free T4 (0.78-2.19) ng/dL Thyroxine (T4) (5.5-11.0) ug/dL TSH 3rd Generation (0.46-4.68) MIU/ml Urine Color (YELLOW) Urine Appearance (CLEAR) Urine pH (4.7-8.0) Ur Specific [place] (1.005-1.035) Urine Protein (<30 mg/dL) mg/dL Urine Glucose (UA) (NEGATIVE) mg/dL Urine Ketones (NEGATIVE) mg/dL Urine Blood (NEGATIVE) Urine Nitrate (NEGATIVE) Urine Bilirubin (NEGATIVE) Urine Urobilinogen (<1 E.U./dL) E.U./dL Ur Leukocyte Esterase (NEGATIVE) [place]/uL Urine RBC (0-2) /hpf Urine WBC (0-6) /hpf Ur Epithelial Cells (0-5) /hpf Urine Bacteria (NEG) Laboratory Results - last 24 hr 01/25/17 01/25/17 01/25/17 11:30 12:28 13:48 WBC RBC Hgb Hct MCV MCH MCHC RDW Plt Count MPV Gran % Lymph % (Auto) [place] % (Auto) Eos % (Auto) Baso % (Auto) Gran # Lymph # [place] # Eos # Baso # Sodium Potassium Chloride Carbon Dioxide Anion Gap BUN Creatinine Est GFR ( Amer) Est GFR (Non-Af Amer) POC Glucose (mg/dL) 246 H 251 H 174 H Random Glucose Calcium Magnesium Total Bilirubin AST ALT Alkaline Phosphatase Lactate Dehydrogenase Total Creatine Kinase Troponin I Total Protein Albumin Globulin Albumin/Globulin Ratio Triglycerides Cholesterol LDL Cholesterol Direct HDL Cholesterol Lipase Free T4 Thyroxine (T4) TSH 3rd Generation Urine Color Urine Appearance Urine pH Ur Specific [place] Urine Protein Urine Glucose (UA) Urine Ketones Urine Blood Urine Nitrate Urine Bilirubin Urine Urobilinogen Ur Leukocyte Esterase Urine RBC Urine WBC Ur Epithelial Cells Urine Bacteria 01/25/17 01/25/17 01/25/17 14:37 15:30 15:41 WBC RBC Hgb Hct MCV MCH MCHC RDW Plt Count MPV Gran % Lymph % (Auto) [place] % (Auto) Eos % (Auto) Baso % (Auto) Gran # Lymph # [place] # Eos # Baso # Sodium 136 Potassium 4.0 Chloride 103 Carbon Dioxide 17 L Anion Gap 20 BUN 9 Creatinine 0.4 L Est GFR ( Amer) > 60 Est GFR (Non-Af Amer) > 60 POC Glucose (mg/dL) 164 H 172 H Random Glucose 159 H Calcium 8.6 Magnesium Total Bilirubin 1.2 AST 93 H ALT 63 H Alkaline Phosphatase 122 Lactate Dehydrogenase 742 H Total Creatine Kinase 123 Troponin I < 0.01 Total Protein 8.2 Albumin 4.0 Globulin 4.2 Albumin/Globulin Ratio 1.0 L Triglycerides 2376 H Cholesterol LDL Cholesterol Direct HDL Cholesterol Lipase Free T4 Thyroxine (T4) TSH 3rd Generation Urine Color Urine Appearance Urine pH Ur Specific [place] Urine Protein Urine Glucose (UA) Urine Ketones Urine Blood Urine Nitrate Urine Bilirubin Urine Urobilinogen Ur Leukocyte Esterase Urine RBC Urine WBC Ur Epithelial Cells Urine Bacteria 01/25/17 01/25/17 01/25/17 17:52 18:23 19:45 WBC RBC Hgb Hct MCV MCH MCHC RDW Plt Count MPV Gran % Lymph % (Auto) [place] % (Auto) Eos % (Auto) Baso % (Auto) Gran # Lymph # [place] # Eos # Baso # Sodium Potassium Chloride Carbon Dioxide Anion Gap BUN Creatinine Est GFR ( Amer) Est GFR (Non-Af Amer) POC Glucose (mg/dL) 142 H 144 H 135 H Random Glucose Calcium Magnesium Total Bilirubin AST ALT Alkaline Phosphatase Lactate Dehydrogenase Total Creatine Kinase Troponin I Total Protein Albumin Globulin Albumin/Globulin Ratio Triglycerides Cholesterol LDL Cholesterol Direct HDL Cholesterol Lipase Free T4 Thyroxine (T4) TSH 3rd Generation Urine Color Urine Appearance Urine pH Ur Specific [place] Urine Protein Urine Glucose (UA) Urine Ketones Urine Blood Urine Nitrate Urine Bilirubin Urine Urobilinogen Ur Leukocyte Esterase Urine RBC Urine WBC Ur Epithelial Cells Urine Bacteria 01/25/17 01/25/17 01/25/17 20:05 21:34 23:12 WBC RBC Hgb Hct MCV MCH MCHC RDW Plt Count MPV Gran % Lymph % (Auto) [place] % (Auto) Eos % (Auto) Baso % (Auto) Gran # Lymph # [place] # Eos # Baso # Sodium Potassium Chloride Carbon Dioxide Anion Gap BUN Creatinine Est GFR ( Amer) Est GFR (Non-Af Amer) POC Glucose (mg/dL) 118 H 128 H Random Glucose Calcium Magnesium Total Bilirubin AST ALT Alkaline Phosphatase Lactate Dehydrogenase 601 Total Creatine Kinase 112 Troponin I < 0.01 Total Protein Albumin Globulin Albumin/Globulin Ratio Triglycerides 1930 H Cholesterol LDL Cholesterol Direct HDL Cholesterol Lipase Free T4 Thyroxine (T4) TSH 3rd Generation Urine Color Urine Appearance Urine pH Ur Specific [place] Urine Protein Urine Glucose (UA) Urine Ketones Urine Blood Urine Nitrate Urine Bilirubin Urine Urobilinogen Ur Leukocyte Esterase Urine RBC Urine WBC Ur Epithelial Cells Urine Bacteria 01/26/17 01/26/17 01/26/17 00:03 01:04 01:56 WBC RBC Hgb Hct MCV MCH MCHC RDW Plt Count MPV Gran % Lymph % (Auto) [place] % (Auto) Eos % (Auto) Baso % (Auto) Gran # Lymph # [place] # Eos # Baso # Sodium Potassium Chloride Carbon Dioxide Anion Gap BUN Creatinine Est GFR ( Amer) Est GFR (Non-Af Amer) POC Glucose (mg/dL) 138 H 118 H 147 H Random Glucose Calcium Magnesium Total Bilirubin AST ALT Alkaline Phosphatase Lactate Dehydrogenase Total Creatine Kinase Troponin I Total Protein Albumin Globulin Albumin/Globulin Ratio Triglycerides Cholesterol LDL Cholesterol Direct HDL Cholesterol Lipase Free T4 Thyroxine (T4) TSH 3rd Generation Urine Color Urine Appearance Urine pH Ur Specific [place] Urine Protein Urine Glucose (UA) Urine Ketones Urine Blood Urine Nitrate Urine Bilirubin Urine Urobilinogen Ur Leukocyte Esterase Urine RBC Urine WBC Ur Epithelial Cells Urine Bacteria 01/26/17 01/26/17 01/26/17 03:08 03:08 03:08 WBC 6.0 RBC 4.95 Hgb 13.4 L Hct 36.4 L MCV 73.5 L MCH 27.1 MCHC 36.8 RDW 15.5 H Plt Count 161 MPV 11.8 H Gran % 66.3 Lymph % (Auto) 27.2 [place] % (Auto) 5.0 Eos % (Auto) 1.0 L Baso % (Auto) 0.5 Gran # 3.99 Lymph # 1.6 [place] # 0.3 Eos # 0.1 Baso # 0.03 Sodium 136 Potassium 3.5 L Chloride 105 Carbon Dioxide 22 Anion Gap 13 BUN 9 Creatinine 0.5 Est GFR ( Amer) > 60 Est GFR (Non-Af Amer) > 60 POC Glucose (mg/dL) Random Glucose 127 H Calcium 8.3 L Magnesium Total Bilirubin 0.8 AST 48 ALT 60 H Alkaline Phosphatase 111 Lactate Dehydrogenase 404 Total Creatine Kinase 110 Troponin I < 0.01 Total Protein 7.3 Albumin 3.5 Globulin 3.8 Albumin/Globulin Ratio 0.9 L Triglycerides 1072 H Cholesterol 212 H LDL Cholesterol Direct < 30 HDL Cholesterol 21 L Lipase 39 Free T4 Thyroxine (T4) TSH 3rd Generation 0.4 L Urine Color Urine Appearance Urine pH Ur Specific [place] Urine Protein Urine Glucose (UA) Urine Ketones Urine Blood Urine Nitrate Urine Bilirubin Urine Urobilinogen Ur Leukocyte Esterase Urine RBC Urine WBC Ur Epithelial Cells Urine Bacteria 01/26/17 01/26/17 01/26/17 03:50 05:56 06:00 WBC RBC Hgb Hct MCV MCH MCHC RDW Plt Count MPV Gran % Lymph % (Auto) [place] % (Auto) Eos % (Auto) Baso % (Auto) Gran # Lymph # [place] # Eos # Baso # Sodium Potassium Chloride Carbon Dioxide Anion Gap BUN Creatinine Est GFR ( Amer) Est GFR (Non-Af Amer) POC Glucose (mg/dL) 140 H 130 H Random Glucose Calcium Magnesium 1.7 Total Bilirubin AST ALT Alkaline Phosphatase Lactate Dehydrogenase Total Creatine Kinase Troponin I Total Protein Albumin Globulin Albumin/Globulin Ratio Triglycerides Cholesterol LDL Cholesterol Direct HDL Cholesterol Lipase Free T4 Thyroxine (T4) TSH 3rd Generation Urine Color Urine Appearance Urine pH Ur Specific [place] Urine Protein Urine Glucose (UA) Urine Ketones Urine Blood Urine Nitrate Urine Bilirubin Urine Urobilinogen Ur Leukocyte Esterase Urine RBC Urine WBC Ur Epithelial Cells Urine Bacteria 01/26/17 01/26/17 01/26/17 06:00 06:20 09:20 WBC RBC Hgb Hct MCV MCH MCHC RDW Plt Count MPV Gran % Lymph % (Auto) [place] % (Auto) Eos % (Auto) Baso % (Auto) Gran # Lymph # [place] # Eos # Baso # Sodium Potassium Chloride Carbon Dioxide Anion Gap BUN Creatinine Est GFR ( Amer) Est GFR (Non-Af Amer) POC Glucose (mg/dL) Random Glucose Calcium Magnesium Total Bilirubin AST ALT Alkaline Phosphatase Lactate Dehydrogenase Total Creatine Kinase Troponin I Total Protein Albumin Globulin Albumin/Globulin Ratio Triglycerides 1121 H Cholesterol LDL Cholesterol Direct HDL Cholesterol Lipase Free T4 1.76 Thyroxine (T4) 10.9 TSH 3rd Generation Urine Color Yellow Urine Appearance Sl cloudy Urine pH 6.0 Ur Specific [place] 1.025 Urine Protein Trace H Urine Glucose (UA) >=1000 Urine Ketones >=80 Urine Blood Negative Urine Nitrate Negative Urine Bilirubin Small H Urine Urobilinogen 0.2 Ur Leukocyte Esterase Negative Urine RBC 0 - 2 Urine WBC 1 - 3 Ur Epithelial Cells 1 - 3 Urine Bacteria Small EKG/Cardiology Studies: Cardiology / EKG Studies 01/25/17 12:07 EKG [ELECTROCARDIOGRAM] Stat Comment: Reason For Exam: abd pain Fingerstick Blood Sugar Results: 105 Review of Systems - Review of Systems All systems: reviewed and no additional remarkable complaints except (as per HPI ) - EENT Eyes: UNREMARKABLE Nose/Mouth/Throat: UNREMARKABLE - Cardiovascular Cardiovascular: As Per HPI. absent: Pain Radiating to Arm/Neck/Jaw, Leg Edema, Lightheadedness, Palpitations, Pedal Edema - Respiratory Respiratory: UNREMARKABLE - Gastrointestinal Gastrointestinal: As Per HPI, Constipation, Nausea. absent: Diarrhea, Hematochezia, Loose Stools, Vomiting Additional comments: dark hard stool - Genitourinary Genitourinary: Dysuria. absent: Flank Pain, Hematuria - Musculoskeletal Musculoskeletal: Arthralgias, Numbness (lower legs BL), Tingling (lower legs BL) - Integumentary Integumentary: UNREMARKABLE. absent: Lesions - Neurological Neurological: Numbness (BL lower legs), Memory Loss, Tingling (BL lower legs), Vertigo, Weakness - Psychiatric Psychiatric: Hopelessness - Endocrine Endocrine: absent: Palpitations, Polydipsia, Polyuria Critical Care Progress Note - Nutrition Nutrition: Nutrition Category Date Time Status NPO Diet [DIET] Diets 01/25/17 Breakfast Ordered Assessment/Plan - Assessment and Plan (Free Text) Assessment: 41 M with PMH of recurrent hypertriglyceridemia, recurrent pancreatitis with pseudocyst, Hep C, IDDM, and PUD who is in the ICU for severe hypertriglyceridemia, exacerbation of chronic pancreatitis, and necessitating insulin drip Neuro: AA&Ox3, Chronic lower leg numbness/tingling probably d/t DM Neurovascular exam grossly intact Continue to monitor blood glucose and treat accordingly PT to evaluate for gait stability Continue to monitor Pulm: No respiratory distress SaO2>97% continue to monitor Cardio: L Chest pain reproducible with palpation and inspiration, no radiating, HR wnl, BP wnl RRR, S1/S2+, no murmurs Trop <0.01x3 Continue to monitor continue NS@150cc GI: Persistent epigastric abdominal pain and nausea, no vomiting Abdominal exam tender to palpation but not distended, no sign of peritonitis triglycerides down to 1121 from 3583 yesterday, lipase WNL, LFT's trending down US of the abdomen with duplex pending Per Dr. Saavedra's recs, D/C insulin drip and start on low dose humalog Q4 hours, patient currently refusing plasmapheresis, lipoprotein fractionation, hep C viral load, GT, and phenotyping pending Continue to trend triglycerides and LFT's Continue NS@150cc Begin gemfibrozil, continue antiemetics, continue protonix NPO with ice chips, advance per GI recommendations Endo: Patient's glucose 110-143 today on insulin drip, D5 1/2 NS started this AM. Hgb A1C pending to access for home glucose control Per Dr. Saavedra's recs, D/C insulin drip, begin low dose humalog Q4 hours, ACCU checks Continue to monitor blood glucose, CMP, and TG's Nephro: K 3.5 supplement electrolytes as needed Monitor I&O's, ensure UOP>0.5cc/kg/hr PPX: PTX, SQH Dispo: transfer to med/surg once patient is stable off of insulin drip Pt seen and discussed with Dr. Laura King, PGY1 <Allan Sanchez - Last Filed: 01/26/17 18:39> CCU Objective - Vital Signs / Intake & Output Vital Signs (Last 4 hours): Vital Signs Temp Pulse Resp BP Pulse Ox 01/26/17 17:40 68 24 100 01/26/17 17:30 65 21 97 01/26/17 17:20 58 L 13 100 01/26/17 17:10 60 13 99 01/26/17 17:00 58 L 17 130/76 100 01/26/17 16:50 58 L 16 100 01/26/17 16:42 96.8 F L 01/26/17 16:40 58 L 100 01/26/17 16:30 63 12 100 01/26/17 16:20 66 17 100 01/26/17 16:10 60 21 100 01/26/17 16:00 60 12 130/65 100 01/26/17 15:50 58 L 18 100 01/26/17 15:40 87 15 99 01/26/17 15:30 65 100 01/26/17 15:20 59 L 16 99 01/26/17 15:10 57 L 17 99 01/26/17 15:03 118/62 01/26/17 15:00 59 L 13 118/62 100 01/26/17 14:50 59 L 14 100 01/26/17 14:40 58 L 17 100 01/26/17 14:30 60 17 100 Intake and Output (Last 8hrs): Intake & Output 01/26/17 01/26/17 01/26/17 06:59 14:59 22:59 Intake Total 1806.5 5.0 2009 Output Total 1000 Balance 806.5 5.0 2009 Weight 185 lb 6.4 oz Intake: IV 1806.5 5.0 Right Antecubital 1800 Oral 0 200 Other 1810 Output: Urine 1000 Urine, Voided 1000 Other: # Voids Urine, Voided 1,000 # Bowel Movements 0 0 - Medications Active Medications: Active Medications Generic Name Dose Route Start Last Admin Trade Name Freq PRN Reason Stop Dose Admin Atorvastatin Calcium 20 mg 01/26/17 17:00 01/26/17 17:28 Lipitor PO 20 mg DIN DO Administration Gemfibrozil 600 mg 01/26/17 18:00 01/26/17 17:27 Lopid PO 600 mg BID DO Administration Heparin Sodium (Porcine) 5,000 units 01/25/17 17:00 01/26/17 13:08 Heparin SC 5,000 units Q8 DO Administration Protocol Sodium Chloride 1,000 mls @ 150 mls/hr 01/26/17 14:30 01/26/17 15:00 Sodium Chloride 0.9% IV 150 mls/hr .[id number] DO Administration Insulin Human Lispro 0 units 01/26/17 16:30 01/26/17 16:29 Humalog Low SC Not Given ACHS [facility] Protocol Morphine Sulfate 2 mg 01/25/17 12:01 01/26/17 16:20 Morphine IVP 2 mg Q4H PRN Administration severe pain [id number] Ethyl Esters 2 gm 01/26/17 18:00 01/26/17 17:27 Lovaza PO 2 gm BID DO Administration Ondansetron HCl 4 mg 01/26/17 00:39 01/26/17 13:24 Zofran Inj IVP 4 mg Q4H PRN Administration Nausea/Vomiting Pantoprazole Sodium 40 mg 01/26/17 10:00 01/26/17 09:22 Protonix Inj IVP 40 mg DAILY DO Administration - Patient Studies Lab Studies: Lab Studies 01/26/17 01/26/17 01/26/17 Range/Units 16:27 15:00 13:05 WBC (4.5-11.0) 10^3/ul RBC (3.5-6.1) 10^6/uL Hgb (14.0-18.0) gm/dL Hct (42.0-52.0) % MCV (80.0-105.0) fL MCH (25.0-35.0) pg MCHC (31.0-37.0) g/dl RDW (11.5-14.5) % Plt Count (120.0-450.0) 10^3/uL MPV (7.0-11.0) fl Gran % (50.0-68.0) % Lymph % (Auto) (22.0-35.0) % [place] % (Auto) (1.0-6.0) % Eos % (Auto) (1.5-5.0) % Baso % (Auto) (0.0-3.0) % Gran # (1.4-6.5) Lymph # (1.2-3.4) [place] # (0.1-0.6) Eos # (0.0-0.7) Baso # (0.0-2.0) K/mm3 Sodium (132-148) mmol/L Potassium (3.6-5.0) mmol/L Chloride (98-107) mmol/L Carbon Dioxide (21-33) mmol/L Anion Gap (10-20) BUN (7-21) mg/dL Creatinine (0.5-1.4) mg/dL Est GFR ( Amer) Est GFR (Non-Af Amer) POC Glucose (mg/dL) 128 H 143 H (65-110) mg/dL Random Glucose (70-110) mg/dL Hemoglobin A1c (4.2-6.5) % Calcium (8.4-10.5) mg/dL Magnesium (1.7-2.2) mg/dL Total Bilirubin (0.2-1.3) mg/dL AST (15-59) U/L ALT (7-56) U/L Alkaline Phosphatase (38-133) U/L Lactate Dehydrogenase (333-699) U/L Total Creatine Kinase (35-230) U/L Troponin I ng/mL Total Protein (5.8-8.3) g/dL Albumin (3.0-4.8) g/dL Globulin gm/dL Albumin/Globulin Ratio (1.1-1.8) Triglycerides 586 H (35-160) mg/dL Cholesterol (130-200) mg/dL LDL Cholesterol Direct (0-129) mg/dL HDL Cholesterol (29-60) mg/dL Lipase (23-300) U/L Free T4 (0.78-2.19) ng/dL Thyroxine (T4) (5.5-11.0) ug/dL TSH 3rd Generation (0.46-4.68) MIU/ml Urine Color (YELLOW) Urine Appearance (CLEAR) Urine pH (4.7-8.0) Ur Specific [place] (1.005-1.035) Urine Protein (<30 mg/dL) mg/dL Urine Glucose (UA) (NEGATIVE) mg/dL Urine Ketones (NEGATIVE) mg/dL Urine Blood (NEGATIVE) Urine Nitrate (NEGATIVE) Urine Bilirubin (NEGATIVE) Urine Urobilinogen (<1 E.U./dL) E.U./dL Ur Leukocyte Esterase (NEGATIVE) [place]/uL Urine RBC (0-2) /hpf Urine WBC (0-6) /hpf Ur Epithelial Cells (0-5) /hpf Urine Bacteria (NEG) 01/26/17 01/26/17 01/26/17 Range/Units 12:13 11:04 10:17 WBC (4.5-11.0) 10^3/ul RBC (3.5-6.1) 10^6/uL Hgb (14.0-18.0) gm/dL Hct (42.0-52.0) % MCV (80.0-105.0) fL MCH (25.0-35.0) pg MCHC (31.0-37.0) g/dl RDW (11.5-14.5) % Plt Count (120.0-450.0) 10^3/uL MPV (7.0-11.0) fl Gran % (50.0-68.0) % Lymph % (Auto) (22.0-35.0) % [place] % (Auto) (1.0-6.0) % Eos % (Auto) (1.5-5.0) % Baso % (Auto) (0.0-3.0) % Gran # (1.4-6.5) Lymph # (1.2-3.4) [place] # (0.1-0.6) Eos # (0.0-0.7) Baso # (0.0-2.0) K/mm3 Sodium (132-148) mmol/L Potassium (3.6-5.0) mmol/L Chloride (98-107) mmol/L Carbon Dioxide (21-33) mmol/L Anion Gap (10-20) BUN (7-21) mg/dL Creatinine (0.5-1.4) mg/dL Est GFR ( Amer) Est GFR (Non-Af Amer) POC Glucose (mg/dL) 105 110 116 H (65-110) mg/dL Random Glucose (70-110) mg/dL Hemoglobin A1c (4.2-6.5) % Calcium (8.4-10.5) mg/dL Magnesium (1.7-2.2) mg/dL Total Bilirubin (0.2-1.3) mg/dL AST (15-59) U/L ALT (7-56) U/L Alkaline Phosphatase (38-133) U/L Lactate Dehydrogenase (333-699) U/L Total Creatine Kinase (35-230) U/L Troponin I ng/mL Total Protein (5.8-8.3) g/dL Albumin (3.0-4.8) g/dL Globulin gm/dL Albumin/Globulin Ratio (1.1-1.8) Triglycerides (35-160) mg/dL Cholesterol (130-200) mg/dL LDL Cholesterol Direct (0-129) mg/dL HDL Cholesterol (29-60) mg/dL Lipase (23-300) U/L Free T4 (0.78-2.19) ng/dL Thyroxine (T4) (5.5-11.0) ug/dL TSH 3rd Generation (0.46-4.68) MIU/ml Urine Color (YELLOW) Urine Appearance (CLEAR) Urine pH (4.7-8.0) Ur Specific [place] (1.005-1.035) Urine Protein (<30 mg/dL) mg/dL Urine Glucose (UA) (NEGATIVE) mg/dL Urine Ketones (NEGATIVE) mg/dL Urine Blood (NEGATIVE) Urine Nitrate (NEGATIVE) Urine Bilirubin (NEGATIVE) Urine Urobilinogen (<1 E.U./dL) E.U./dL Ur Leukocyte Esterase (NEGATIVE) [place]/uL Urine RBC (0-2) /hpf Urine WBC (0-6) /hpf Ur Epithelial Cells (0-5) /hpf Urine Bacteria (NEG) 01/26/17 01/26/17 01/26/17 Range/Units 09:20 09:02 08:01 WBC (4.5-11.0) 10^3/ul RBC (3.5-6.1) 10^6/uL Hgb (14.0-18.0) gm/dL Hct (42.0-52.0) % MCV (80.0-105.0) fL MCH (25.0-35.0) pg MCHC (31.0-37.0) g/dl RDW (11.5-14.5) % Plt Count (120.0-450.0) 10^3/uL MPV (7.0-11.0) fl Gran % (50.0-68.0) % Lymph % (Auto) (22.0-35.0) % [place] % (Auto) (1.0-6.0) % Eos % (Auto) (1.5-5.0) % Baso % (Auto) (0.0-3.0) % Gran # (1.4-6.5) Lymph # (1.2-3.4) [place] # (0.1-0.6) Eos # (0.0-0.7) Baso # (0.0-2.0) K/mm3 Sodium (132-148) mmol/L Potassium (3.6-5.0) mmol/L Chloride (98-107) mmol/L Carbon Dioxide (21-33) mmol/L Anion Gap (10-20) BUN (7-21) mg/dL Creatinine (0.5-1.4) mg/dL Est GFR ( Amer) Est GFR (Non-Af Amer) POC Glucose (mg/dL) 133 H 128 H (65-110) mg/dL Random Glucose (70-110) mg/dL Hemoglobin A1c (4.2-6.5) % Calcium (8.4-10.5) mg/dL Magnesium (1.7-2.2) mg/dL Total Bilirubin (0.2-1.3) mg/dL AST (15-59) U/L ALT (7-56) U/L Alkaline Phosphatase (38-133) U/L Lactate Dehydrogenase (333-699) U/L Total Creatine Kinase (35-230) U/L Troponin I ng/mL Total Protein (5.8-8.3) g/dL Albumin (3.0-4.8) g/dL Globulin gm/dL Albumin/Globulin Ratio (1.1-1.8) Triglycerides 1121 H (35-160) mg/dL Cholesterol (130-200) mg/dL LDL Cholesterol Direct (0-129) mg/dL HDL Cholesterol (29-60) mg/dL Lipase (23-300) U/L Free T4 (0.78-2.19) ng/dL Thyroxine (T4) (5.5-11.0) ug/dL TSH 3rd Generation (0.46-4.68) MIU/ml Urine Color (YELLOW) Urine Appearance (CLEAR) Urine pH (4.7-8.0) Ur Specific [place] (1.005-1.035) Urine Protein (<30 mg/dL) mg/dL Urine Glucose (UA) (NEGATIVE) mg/dL Urine Ketones (NEGATIVE) mg/dL Urine Blood (NEGATIVE) Urine Nitrate (NEGATIVE) Urine Bilirubin (NEGATIVE) Urine Urobilinogen (<1 E.U./dL) E.U./dL Ur Leukocyte Esterase (NEGATIVE) [place]/uL Urine RBC (0-2) /hpf Urine WBC (0-6) /hpf Ur Epithelial Cells (0-5) /hpf Urine Bacteria (NEG) 01/26/17 01/26/17 01/26/17 Range/Units 06:54 06:20 06:00 WBC (4.5-11.0) 10^3/ul RBC (3.5-6.1) 10^6/uL Hgb (14.0-18.0) gm/dL Hct (42.0-52.0) % MCV (80.0-105.0) fL MCH (25.0-35.0) pg MCHC (31.0-37.0) g/dl RDW (11.5-14.5) % Plt Count (120.0-450.0) 10^3/uL MPV (7.0-11.0) fl Gran % (50.0-68.0) % Lymph % (Auto) (22.0-35.0) % [place] % (Auto) (1.0-6.0) % Eos % (Auto) (1.5-5.0) % Baso % (Auto) (0.0-3.0) % Gran # (1.4-6.5) Lymph # (1.2-3.4) [place] # (0.1-0.6) Eos # (0.0-0.7) Baso # (0.0-2.0) K/mm3 Sodium (132-148) mmol/L Potassium (3.6-5.0) mmol/L Chloride (98-107) mmol/L Carbon Dioxide (21-33) mmol/L Anion Gap (10-20) BUN (7-21) mg/dL Creatinine (0.5-1.4) mg/dL Est GFR ( Amer) Est GFR (Non-Af Amer) POC Glucose (mg/dL) 123 H (65-110) mg/dL Random Glucose (70-110) mg/dL Hemoglobin A1c (4.2-6.5) % Calcium (8.4-10.5) mg/dL Magnesium (1.7-2.2) mg/dL Total Bilirubin (0.2-1.3) mg/dL AST (15-59) U/L ALT (7-56) U/L Alkaline Phosphatase (38-133) U/L Lactate Dehydrogenase (333-699) U/L Total Creatine Kinase (35-230) U/L Troponin I ng/mL Total Protein (5.8-8.3) g/dL Albumin (3.0-4.8) g/dL Globulin gm/dL Albumin/Globulin Ratio (1.1-1.8) Triglycerides (35-160) mg/dL Cholesterol (130-200) mg/dL LDL Cholesterol Direct (0-129) mg/dL HDL Cholesterol (29-60) mg/dL Lipase (23-300) U/L Free T4 1.76 (0.78-2.19) ng/dL Thyroxine (T4) 10.9 (5.5-11.0) ug/dL TSH 3rd Generation (0.46-4.68) MIU/ml Urine Color Yellow (YELLOW) Urine Appearance Sl cloudy (CLEAR) Urine pH 6.0 (4.7-8.0) Ur Specific [place] 1.025 (1.005-1.035) Urine Protein Trace H (<30 mg/dL) mg/dL Urine Glucose (UA) >=1000 (NEGATIVE) mg/dL Urine Ketones >=80 (NEGATIVE) mg/dL Urine Blood Negative (NEGATIVE) Urine Nitrate Negative (NEGATIVE) Urine Bilirubin Small H (NEGATIVE) Urine Urobilinogen 0.2 (<1 E.U./dL) E.U./dL Ur Leukocyte Esterase Negative (NEGATIVE) [place]ba/uL Urine RBC 0 - 2 (0-2) /hpf Urine WBC 1 - 3 (0-6) /hpf Ur Epithelial Cells 1 - 3 (0-5) /hpf Urine Bacteria Small (NEG) 01/26/17 01/26/17 01/26/17 Range/Units 06:00 05:56 03:50 WBC (4.5-11.0) 10^3/ul RBC (3.5-6.1) 10^6/uL Hgb (14.0-18.0) gm/dL Hct (42.0-52.0) % MCV (80.0-105.0) fL MCH (25.0-35.0) pg MCHC (31.0-37.0) g/dl RDW (11.5-14.5) % Plt Count (120.0-450.0) 10^3/uL MPV (7.0-11.0) fl Gran % (50.0-68.0) % Lymph % (Auto) (22.0-35.0) % [place] % (Auto) (1.0-6.0) % Eos % (Auto) (1.5-5.0) % Baso % (Auto) (0.0-3.0) % Gran # (1.4-6.5) Lymph # (1.2-3.4) [place] # (0.1-0.6) Eos # (0.0-0.7) Baso # (0.0-2.0) K/mm3 Sodium (132-148) mmol/L Potassium (3.6-5.0) mmol/L Chloride (98-107) mmol/L Carbon Dioxide (21-33) mmol/L Anion Gap (10-20) BUN (7-21) mg/dL Creatinine (0.5-1.4) mg/dL Est GFR ( Amer) Est GFR (Non-Af Amer) POC Glucose (mg/dL) 130 H 140 H (65-110) mg/dL Random Glucose (70-110) mg/dL Hemoglobin A1c (4.2-6.5) % Calcium (8.4-10.5) mg/dL Magnesium 1.7 (1.7-2.2) mg/dL Total Bilirubin (0.2-1.3) mg/dL AST (15-59) U/L ALT (7-56) U/L Alkaline Phosphatase (38-133) U/L Lactate Dehydrogenase (333-699) U/L Total Creatine Kinase (35-230) U/L Troponin I ng/mL Total Protein (5.8-8.3) g/dL Albumin (3.0-4.8) g/dL Globulin gm/dL Albumin/Globulin Ratio (1.1-1.8) Triglycerides (35-160) mg/dL Cholesterol (130-200) mg/dL LDL Cholesterol Direct (0-129) mg/dL HDL Cholesterol (29-60) mg/dL Lipase (23-300) U/L Free T4 (0.78-2.19) ng/dL Thyroxine (T4) (5.5-11.0) ug/dL TSH 3rd Generation (0.46-4.68) MIU/ml Urine Color (YELLOW) Urine Appearance (CLEAR) Urine pH (4.7-8.0) Ur Specific [place] (1.005-1.035) Urine Protein (<30 mg/dL) mg/dL Urine Glucose (UA) (NEGATIVE) mg/dL Urine Ketones (NEGATIVE) mg/dL Urine Blood (NEGATIVE) Urine Nitrate (NEGATIVE) Urine Bilirubin (NEGATIVE) Urine Urobilinogen (<1 E.U./dL) E.U./dL Ur Leukocyte Esterase (NEGATIVE) [place]ba/uL Urine RBC (0-2) /hpf Urine WBC (0-6) /hpf Ur Epithelial Cells (0-5) /hpf Urine Bacteria (NEG) 01/26/17 01/26/17 01/26/17 Range/Units 03:08 03:08 03:08 WBC (4.5-11.0) 10^3/ul RBC (3.5-6.1) 10^6/uL Hgb (14.0-18.0) gm/dL Hct (42.0-52.0) % MCV (80.0-105.0) fL MCH (25.0-35.0) pg MCHC (31.0-37.0) g/dl RDW (11.5-14.5) % Plt Count (120.0-450.0) 10^3/uL MPV (7.0-11.0) fl Gran % (50.0-68.0) % Lymph % (Auto) (22.0-35.0) % [place] % (Auto) (1.0-6.0) % Eos % (Auto) (1.5-5.0) % Baso % (Auto) (0.0-3.0) % Gran # (1.4-6.5) Lymph # (1.2-3.4) [place] # (0.1-0.6) Eos # (0.0-0.7) Baso # (0.0-2.0) K/mm3 Sodium 136 (132-148) mmol/L Potassium 3.5 L (3.6-5.0) mmol/L Chloride 105 (98-107) mmol/L Carbon Dioxide 22 (21-33) mmol/L Anion Gap 13 (10-20) BUN 9 (7-21) mg/dL Creatinine 0.5 (0.5-1.4) mg/dL Est GFR ( Amer) > 60 Est GFR (Non-Af Amer) > 60 POC Glucose (mg/dL) (65-110) mg/dL Random Glucose 127 H (70-110) mg/dL Hemoglobin A1c 13.1 H (4.2-6.5) % Calcium 8.3 L (8.4-10.5) mg/dL Magnesium (1.7-2.2) mg/dL Total Bilirubin 0.8 (0.2-1.3) mg/dL AST 48 (15-59) U/L ALT 60 H (7-56) U/L Alkaline Phosphatase 111 (38-133) U/L Lactate Dehydrogenase 404 (333-699) U/L Total Creatine Kinase 110 (35-230) U/L Troponin I < 0.01 ng/mL Total Protein 7.3 (5.8-8.3) g/dL Albumin 3.5 (3.0-4.8) g/dL Globulin 3.8 gm/dL Albumin/Globulin Ratio 0.9 L (1.1-1.8) Triglycerides 1072 H (35-160) mg/dL Cholesterol 212 H (130-200) mg/dL LDL Cholesterol Direct < 30 (0-129) mg/dL HDL Cholesterol 21 L (29-60) mg/dL Lipase 39 (23-300) U/L Free T4 (0.78-2.19) ng/dL Thyroxine (T4) (5.5-11.0) ug/dL TSH 3rd Generation 0.4 L (0.46-4.68) MIU/ml Urine Color (YELLOW) Urine Appearance (CLEAR) Urine pH (4.7-8.0) Ur Specific [place] (1.005-1.035) Urine Protein (<30 mg/dL) mg/dL Urine Glucose (UA) (NEGATIVE) mg/dL Urine Ketones (NEGATIVE) mg/dL Urine Blood (NEGATIVE) Urine Nitrate (NEGATIVE) Urine Bilirubin (NEGATIVE) Urine Urobilinogen (<1 E.U./dL) E.U./dL Ur Leukocyte Esterase (NEGATIVE) Elba/uL Urine RBC (0-2) /hpf Urine WBC (0-6) /hpf Ur Epithelial Cells (0-5) /hpf Urine Bacteria (NEG) 01/26/17 01/26/17 01/26/17 Range/Units 03:08 01:56 01:04 WBC 6.0 (4.5-11.0) 10^3/ul RBC 4.95 (3.5-6.1) 10^6/uL Hgb 13.4 L (14.0-18.0) gm/dL Hct 36.4 L (42.0-52.0) % MCV 73.5 L (80.0-105.0) fL MCH 27.1 (25.0-35.0) pg MCHC 36.8 (31.0-37.0) g/dl RDW 15.5 H (11.5-14.5) % Plt Count 161 (120.0-450.0) 10^3/uL MPV 11.8 H (7.0-11.0) fl Gran % 66.3 (50.0-68.0) % Lymph % (Auto) 27.2 (22.0-35.0) % [place] % (Auto) 5.0 (1.0-6.0) % Eos % (Auto) 1.0 L (1.5-5.0) % Baso % (Auto) 0.5 (0.0-3.0) % Gran # 3.99 (1.4-6.5) Lymph # 1.6 (1.2-3.4) [place] # 0.3 (0.1-0.6) Eos # 0.1 (0.0-0.7) Baso # 0.03 (0.0-2.0) K/mm3 Sodium (132-148) mmol/L Potassium (3.6-5.0) mmol/L Chloride (98-107) mmol/L Carbon Dioxide (21-33) mmol/L Anion Gap (10-20) BUN (7-21) mg/dL Creatinine (0.5-1.4) mg/dL Est GFR ( Amer) Est GFR (Non-Af Amer) POC Glucose (mg/dL) 147 H 118 H (65-110) mg/dL Random Glucose (70-110) mg/dL Hemoglobin A1c (4.2-6.5) % Calcium (8.4-10.5) mg/dL Magnesium (1.7-2.2) mg/dL Total Bilirubin (0.2-1.3) mg/dL AST (15-59) U/L ALT (7-56) U/L Alkaline Phosphatase (38-133) U/L Lactate Dehydrogenase (333-699) U/L Total Creatine Kinase (35-230) U/L Troponin I ng/mL Total Protein (5.8-8.3) g/dL Albumin (3.0-4.8) g/dL Globulin gm/dL Albumin/Globulin Ratio (1.1-1.8) Triglycerides (35-160) mg/dL Cholesterol (130-200) mg/dL LDL Cholesterol Direct (0-129) mg/dL HDL Cholesterol (29-60) mg/dL Lipase (23-300) U/L Free T4 (0.78-2.19) ng/dL Thyroxine (T4) (5.5-11.0) ug/dL TSH 3rd Generation (0.46-4.68) MIU/ml Urine Color (YELLOW) Urine Appearance (CLEAR) Urine pH (4.7-8.0) Ur Specific [place] (1.005-1.035) Urine Protein (<30 mg/dL) mg/dL Urine Glucose (UA) (NEGATIVE) mg/dL Urine Ketones (NEGATIVE) mg/dL Urine Blood (NEGATIVE) Urine Nitrate (NEGATIVE) Urine Bilirubin (NEGATIVE) Urine Urobilinogen (<1 E.U./dL) E.U./dL Ur Leukocyte Esterase (NEGATIVE) Elba/uL Urine RBC (0-2) /hpf Urine WBC (0-6) /hpf Ur Epithelial Cells (0-5) /hpf Urine Bacteria (NEG) 01/26/17 01/25/17 01/25/17 Range/Units 00:03 23:12 21:34 WBC (4.5-11.0) 10^3/ul RBC (3.5-6.1) 10^6/uL Hgb (14.0-18.0) gm/dL Hct (42.0-52.0) % MCV (80.0-105.0) fL MCH (25.0-35.0) pg MCHC (31.0-37.0) g/dl RDW (11.5-14.5) % Plt Count (120.0-450.0) 10^3/uL MPV (7.0-11.0) fl Gran % (50.0-68.0) % Lymph % (Auto) (22.0-35.0) % [place] % (Auto) (1.0-6.0) % Eos % (Auto) (1.5-5.0) % Baso % (Auto) (0.0-3.0) % Gran # (1.4-6.5) Lymph # (1.2-3.4) [place] # (0.1-0.6) Eos # (0.0-0.7) Baso # (0.0-2.0) K/mm3 Sodium (132-148) mmol/L Potassium (3.6-5.0) mmol/L Chloride (98-107) mmol/L Carbon Dioxide (21-33) mmol/L Anion Gap (10-20) BUN (7-21) mg/dL Creatinine (0.5-1.4) mg/dL Est GFR ( Amer) Est GFR (Non-Af Amer) POC Glucose (mg/dL) 138 H 128 H 118 H (65-110) mg/dL Random Glucose (70-110) mg/dL Hemoglobin A1c (4.2-6.5) % Calcium (8.4-10.5) mg/dL Magnesium (1.7-2.2) mg/dL Total Bilirubin (0.2-1.3) mg/dL AST (15-59) U/L ALT (7-56) U/L Alkaline Phosphatase (38-133) U/L Lactate Dehydrogenase (333-699) U/L Total Creatine Kinase (35-230) U/L Troponin I ng/mL Total Protein (5.8-8.3) g/dL Albumin (3.0-4.8) g/dL Globulin gm/dL Albumin/Globulin Ratio (1.1-1.8) Triglycerides (35-160) mg/dL Cholesterol (130-200) mg/dL LDL Cholesterol Direct (0-129) mg/dL HDL Cholesterol (29-60) mg/dL Lipase (23-300) U/L Free T4 (0.78-2.19) ng/dL Thyroxine (T4) (5.5-11.0) ug/dL TSH 3rd Generation (0.46-4.68) MIU/ml Urine Color (YELLOW) Urine Appearance (CLEAR) Urine pH (4.7-8.0) Ur Specific [place] (1.005-1.035) Urine Protein (<30 mg/dL) mg/dL Urine Glucose (UA) (NEGATIVE) mg/dL Urine Ketones (NEGATIVE) mg/dL Urine Blood (NEGATIVE) Urine Nitrate (NEGATIVE) Urine Bilirubin (NEGATIVE) Urine Urobilinogen (<1 E.U./dL) E.U./dL Ur Leukocyte Esterase (NEGATIVE) [place]ba/uL Urine RBC (0-2) /hpf Urine WBC (0-6) /hpf Ur Epithelial Cells (0-5) /hpf Urine Bacteria (NEG) 01/25/17 01/25/17 01/25/17 Range/Units 20:05 19:45 18:23 WBC (4.5-11.0) 10^3/ul RBC (3.5-6.1) 10^6/uL Hgb (14.0-18.0) gm/dL Hct (42.0-52.0) % MCV (80.0-105.0) fL MCH (25.0-35.0) pg MCHC (31.0-37.0) g/dl RDW (11.5-14.5) % Plt Count (120.0-450.0) 10^3/uL MPV (7.0-11.0) fl Gran % (50.0-68.0) % Lymph % (Auto) (22.0-35.0) % [place] % (Auto) (1.0-6.0) % Eos % (Auto) (1.5-5.0) % Baso % (Auto) (0.0-3.0) % Gran # (1.4-6.5) Lymph # (1.2-3.4) [place] # (0.1-0.6) Eos # (0.0-0.7) Baso # (0.0-2.0) K/mm3 Sodium (132-148) mmol/L Potassium (3.6-5.0) mmol/L Chloride (98-107) mmol/L Carbon Dioxide (21-33) mmol/L Anion Gap (10-20) BUN (7-21) mg/dL Creatinine (0.5-1.4) mg/dL Est GFR ( Amer) Est GFR (Non-Af Amer) POC Glucose (mg/dL) 135 H 144 H (65-110) mg/dL Random Glucose (70-110) mg/dL Hemoglobin A1c (4.2-6.5) % Calcium (8.4-10.5) mg/dL Magnesium (1.7-2.2) mg/dL Total Bilirubin (0.2-1.3) mg/dL AST (15-59) U/L ALT (7-56) U/L Alkaline Phosphatase (38-133) U/L Lactate Dehydrogenase 601 (333-699) U/L Total Creatine Kinase 112 (35-230) U/L Troponin I < 0.01 ng/mL Total Protein (5.8-8.3) g/dL Albumin (3.0-4.8) g/dL Globulin gm/dL Albumin/Globulin Ratio (1.1-1.8) Triglycerides 1930 H (35-160) mg/dL Cholesterol (130-200) mg/dL LDL Cholesterol Direct (0-129) mg/dL HDL Cholesterol (29-60) mg/dL Lipase (23-300) U/L Free T4 (0.78-2.19) ng/dL Thyroxine (T4) (5.5-11.0) ug/dL TSH 3rd Generation (0.46-4.68) MIU/ml Urine Color (YELLOW) Urine Appearance (CLEAR) Urine pH (4.7-8.0) Ur Specific [place] (1.005-1.035) Urine Protein (<30 mg/dL) mg/dL Urine Glucose (UA) (NEGATIVE) mg/dL Urine Ketones (NEGATIVE) mg/dL Urine Blood (NEGATIVE) Urine Nitrate (NEGATIVE) Urine Bilirubin (NEGATIVE) Urine Urobilinogen (<1 E.U./dL) E.U./dL Ur Leukocyte Esterase (NEGATIVE) [place]ba/uL Urine RBC (0-2) /hpf Urine WBC (0-6) /hpf Ur Epithelial Cells (0-5) /hpf Urine Bacteria (NEG) 01/25/17 01/25/1717 Range/Units 17:52 12:28 11:30 WBC (4.5-11.0) 10^3/ul RBC (3.5-6.1) 10^6/uL Hgb (14.0-18.0) gm/dL Hct (42.0-52.0) % MCV (80.0-105.0) fL MCH (25.0-35.0) pg MCHC (31.0-37.0) g/dl RDW (11.5-14.5) % Plt Count (120.0-450.0) 10^3/uL MPV (7.0-11.0) fl Gran % (50.0-68.0) % Lymph % (Auto) (22.0-35.0) % [place] % (Auto) (1.0-6.0) % Eos % (Auto) (1.5-5.0) % Baso % (Auto) (0.0-3.0) % Gran # (1.4-6.5) Lymph # (1.2-3.4) [place]y # (0.1-0.6) Eos # (0.0-0.7) Baso # (0.0-2.0) K/mm3 Sodium (132-148) mmol/L Potassium (3.6-5.0) mmol/L Chloride (98-107) mmol/L Carbon Dioxide (21-33) mmol/L Anion Gap (10-20) BUN (7-21) mg/dL Creatinine (0.5-1.4) mg/dL Est GFR ( Amer) Est GFR (Non-Af Amer) POC Glucose (mg/dL) 142 H 251 H 246 H (65-110) mg/dL Random Glucose (70-110) mg/dL Hemoglobin A1c (4.2-6.5) % Calcium (8.4-10.5) mg/dL Magnesium (1.7-2.2) mg/dL Total Bilirubin (0.2-1.3) mg/dL AST (15-59) U/L ALT (7-56) U/L Alkaline Phosphatase (38-133) U/L Lactate Dehydrogenase (333-699) U/L Total Creatine Kinase (35-230) U/L Troponin I ng/mL Total Protein (5.8-8.3) g/dL Albumin (3.0-4.8) g/dL Globulin gm/dL Albumin/Globulin Ratio (1.1-1.8) Triglycerides (35-160) mg/dL Cholesterol (130-200) mg/dL LDL Cholesterol Direct (0-129) mg/dL HDL Cholesterol (29-60) mg/dL Lipase (23-300) U/L Free T4 (0.78-2.19) ng/dL Thyroxine (T4) (5.5-11.0) ug/dL TSH 3rd Generation (0.46-4.68) MIU/ml Urine Color (YELLOW) Urine Appearance (CLEAR) Urine pH (4.7-8.0) Ur Specific [place] (1.005-1.035) Urine Protein (<30 mg/dL) mg/dL Urine Glucose (UA) (NEGATIVE) mg/dL Urine Ketones (NEGATIVE) mg/dL Urine Blood (NEGATIVE) Urine Nitrate (NEGATIVE) Urine Bilirubin (NEGATIVE) Urine Urobilinogen (<1 E.U./dL) E.U./dL Ur Leukocyte Esterase (NEGATIVE) [place]ba/uL Urine RBC (0-2) /hpf Urine WBC (0-6) /hpf Ur Epithelial Cells (0-5) /hpf Urine Bacteria (NEG) Laboratory Results - last 24 hr 01/25/17 01/25/17 01/25/17 11:30 12:28 17:52 WBC RBC Hgb Hct MCV MCH MCHC RDW Plt Count MPV Gran % Lymph % (Auto) [place] % (Auto) Eos % (Auto) Baso % (Auto) Gran # Lymph # [place] # Eos # Baso # Sodium Potassium Chloride Carbon Dioxide Anion Gap BUN Creatinine Est GFR ( Amer) Est GFR (Non-Af Amer) POC Glucose (mg/dL) 246 H 251 H 142 H Random Glucose Hemoglobin A1c Calcium Magnesium Total Bilirubin AST ALT Alkaline Phosphatase Lactate Dehydrogenase Total Creatine Kinase Troponin I Total Protein Albumin Globulin Albumin/Globulin Ratio Triglycerides Cholesterol LDL Cholesterol Direct HDL Cholesterol Lipase Free T4 Thyroxine (T4) TSH 3rd Generation Urine Color Urine Appearance Urine pH Ur Specific [place] Urine Protein Urine Glucose (UA) Urine Ketones Urine Blood Urine Nitrate Urine Bilirubin Urine Urobilinogen Ur Leukocyte Esterase Urine RBC Urine WBC Ur Epithelial Cells Urine Bacteria 01/25/17 01/25/17 01/25/17 18:23 19:45 20:05 WBC RBC Hgb Hct MCV MCH MCHC RDW Plt Count MPV Gran % Lymph % (Auto) [place] % (Auto) Eos % (Auto) Baso % (Auto) Gran # Lymph # [place] # Eos # Baso # Sodium Potassium Chloride Carbon Dioxide Anion Gap BUN Creatinine Est GFR ( Amer) Est GFR (Non-Af Amer) POC Glucose (mg/dL) 144 H 135 H Random Glucose Hemoglobin A1c Calcium Magnesium Total Bilirubin AST ALT Alkaline Phosphatase Lactate Dehydrogenase 601 Total Creatine Kinase 112 Troponin I < 0.01 Total Protein Albumin Globulin Albumin/Globulin Ratio Triglycerides 1930 H Cholesterol LDL Cholesterol Direct HDL Cholesterol Lipase Free T4 Thyroxine (T4) TSH 3rd Generation Urine Color Urine Appearance Urine pH Ur Specific [place] Urine Protein Urine Glucose (UA) Urine Ketones Urine Blood Urine Nitrate Urine Bilirubin Urine Urobilinogen Ur Leukocyte Esterase Urine RBC Urine WBC Ur Epithelial Cells Urine Bacteria 01/25/17 01/25/17 01/26/17 21:34 23:12 00:03 WBC RBC Hgb Hct MCV MCH MCHC RDW Plt Count MPV Gran % Lymph % (Auto) [place] % (Auto) Eos % (Auto) Baso % (Auto) Gran # Lymph # [place] # Eos # Baso # Sodium Potassium Chloride Carbon Dioxide Anion Gap BUN Creatinine Est GFR ( Amer) Est GFR (Non-Af Amer) POC Glucose (mg/dL) 118 H 128 H 138 H Random Glucose Hemoglobin A1c Calcium Magnesium Total Bilirubin AST ALT Alkaline Phosphatase Lactate Dehydrogenase Total Creatine Kinase Troponin I Total Protein Albumin Globulin Albumin/Globulin Ratio Triglycerides Cholesterol LDL Cholesterol Direct HDL Cholesterol Lipase Free T4 Thyroxine (T4) TSH 3rd Generation Urine Color Urine Appearance Urine pH Ur Specific [place] Urine Protein Urine Glucose (UA) Urine Ketones Urine Blood Urine Nitrate Urine Bilirubin Urine Urobilinogen Ur Leukocyte Esterase Urine RBC Urine WBC Ur Epithelial Cells Urine Bacteria 01/26/17 01/26/17 01/26/17 01:04 01:56 03:08 WBC 6.0 RBC 4.95 Hgb 13.4 L Hct 36.4 L MCV 73.5 L MCH 27.1 MCHC 36.8 RDW 15.5 H Plt Count 161 MPV 11.8 H Gran % 66.3 Lymph % (Auto) 27.2 [place] % (Auto) 5.0 Eos % (Auto) 1.0 L Baso % (Auto) 0.5 Gran # 3.99 Lymph # 1.6 [place] # 0.3 Eos # 0.1 Baso # 0.03 Sodium Potassium Chloride Carbon Dioxide Anion Gap BUN Creatinine Est GFR ( Amer) Est GFR (Non-Af Amer) POC Glucose (mg/dL) 118 H 147 H Random Glucose Hemoglobin A1c Calcium Magnesium Total Bilirubin AST ALT Alkaline Phosphatase Lactate Dehydrogenase Total Creatine Kinase Troponin I Total Protein Albumin Globulin Albumin/Globulin Ratio Triglycerides Cholesterol LDL Cholesterol Direct HDL Cholesterol Lipase Free T4 Thyroxine (T4) TSH 3rd Generation Urine Color Urine Appearance Urine pH Ur Specific [place] Urine Protein Urine Glucose (UA) Urine Ketones Urine Blood Urine Nitrate Urine Bilirubin Urine Urobilinogen Ur Leukocyte Esterase Urine RBC Urine WBC Ur Epithelial Cells Urine Bacteria 01/26/17 01/26/17 01/26/17 03:08 03:08 03:08 WBC RBC Hgb Hct MCV MCH MCHC RDW Plt Count MPV Gran % Lymph % (Auto) [place] % (Auto) Eos % (Auto) Baso % (Auto) Gran # Lymph # [place] # Eos # Baso # Sodium 136 Potassium 3.5 L Chloride 105 Carbon Dioxide 22 Anion Gap 13 BUN 9 Creatinine 0.5 Est GFR ( Amer) > 60 Est GFR (Non-Af Amer) > 60 POC Glucose (mg/dL) Random Glucose 127 H Hemoglobin A1c 13.1 H Calcium 8.3 L Magnesium Total Bilirubin 0.8 AST 48 ALT 60 H Alkaline Phosphatase 111 Lactate Dehydrogenase 404 Total Creatine Kinase 110 Troponin I < 0.01 Total Protein 7.3 Albumin 3.5 Globulin 3.8 Albumin/Globulin Ratio 0.9 L Triglycerides 1072 H Cholesterol 212 H LDL Cholesterol Direct < 30 HDL Cholesterol 21 L Lipase 39 Free T4 Thyroxine (T4) TSH 3rd Generation 0.4 L Urine Color Urine Appearance Urine pH Ur Specific [place] Urine Protein Urine Glucose (UA) Urine Ketones Urine Blood Urine Nitrate Urine Bilirubin Urine Urobilinogen Ur Leukocyte Esterase Urine RBC Urine WBC Ur Epithelial Cells Urine Bacteria 01/26/17 01/26/17 01/26/17 03:50 05:56 06:00 WBC RBC Hgb Hct MCV MCH MCHC RDW Plt Count MPV Gran % Lymph % (Auto) [place] % (Auto) Eos % (Auto) Baso % (Auto) Gran # Lymph # [place] # Eos # Baso # Sodium Potassium Chloride Carbon Dioxide Anion Gap BUN Creatinine Est GFR ( Amer) Est GFR (Non-Af Amer) POC Glucose (mg/dL) 140 H 130 H Random Glucose Hemoglobin A1c Calcium Magnesium 1.7 Total Bilirubin AST ALT Alkaline Phosphatase Lactate Dehydrogenase Total Creatine Kinase Troponin I Total Protein Albumin Globulin Albumin/Globulin Ratio Triglycerides Cholesterol LDL Cholesterol Direct HDL Cholesterol Lipase Free T4 Thyroxine (T4) TSH 3rd Generation Urine Color Urine Appearance Urine pH Ur Specific [place] Urine Protein Urine Glucose (UA) Urine Ketones Urine Blood Urine Nitrate Urine Bilirubin Urine Urobilinogen Ur Leukocyte Esterase Urine RBC Urine WBC Ur Epithelial Cells Urine Bacteria 01/26/17 01/26/17 01/26/17 06:00 06:20 06:54 WBC RBC Hgb Hct MCV MCH MCHC RDW Plt Count MPV Gran % Lymph % (Auto) [place] % (Auto) Eos % (Auto) Baso % (Auto) Gran # Lymph # [place] # Eos # Baso # Sodium Potassium Chloride Carbon Dioxide Anion Gap BUN Creatinine Est GFR ( Amer) Est GFR (Non-Af Amer) POC Glucose (mg/dL) 123 H Random Glucose Hemoglobin A1c Calcium Magnesium Total Bilirubin AST ALT Alkaline Phosphatase Lactate Dehydrogenase Total Creatine Kinase Troponin I Total Protein Albumin Globulin Albumin/Globulin Ratio Triglycerides Cholesterol LDL Cholesterol Direct HDL Cholesterol Lipase Free T4 1.76 Thyroxine (T4) 10.9 TSH 3rd Generation Urine Color Yellow Urine Appearance Sl cloudy Urine pH 6.0 Ur Specific [place] 1.025 Urine Protein Trace H Urine Glucose (UA) >=1000 Urine Ketones >=80 Urine Blood Negative Urine Nitrate Negative Urine Bilirubin Small H Urine Urobilinogen 0.2 Ur Leukocyte Esterase Negative Urine RBC 0 - 2 Urine WBC 1 - 3 Ur Epithelial Cells 1 - 3 Urine Bacteria Small 01/26/17 01/26/17 01/26/17 08:01 09:02 09:20 WBC RBC Hgb Hct MCV MCH MCHC RDW Plt Count MPV Gran % Lymph % (Auto) [place] % (Auto) Eos % (Auto) Baso % (Auto) Gran # Lymph # [place] # Eos # Baso # Sodium Potassium Chloride Carbon Dioxide Anion Gap BUN Creatinine Est GFR ( Amer) Est GFR (Non-Af Amer) POC Glucose (mg/dL) 128 H 133 H Random Glucose Hemoglobin A1c Calcium Magnesium Total Bilirubin AST ALT Alkaline Phosphatase Lactate Dehydrogenase Total Creatine Kinase Troponin I Total Protein Albumin Globulin Albumin/Globulin Ratio Triglycerides 1121 H Cholesterol LDL Cholesterol Direct HDL Cholesterol Lipase Free T4 Thyroxine (T4) TSH 3rd Generation Urine Color Urine Appearance Urine pH Ur Specific [place] Urine Protein Urine Glucose (UA) Urine Ketones Urine Blood Urine Nitrate Urine Bilirubin Urine Urobilinogen Ur Leukocyte Esterase Urine RBC Urine WBC Ur Epithelial Cells Urine Bacteria 01/26/17 01/26/17 01/26/17 10:17 11:04 12:13 WBC RBC Hgb Hct MCV MCH MCHC RDW Plt Count MPV Gran % Lymph % (Auto) [place] % (Auto) Eos % (Auto) Baso % (Auto) Gran # Lymph # [place] # Eos # Baso # Sodium Potassium Chloride Carbon Dioxide Anion Gap BUN Creatinine Est GFR ( Amer) Est GFR (Non-Af Amer) POC Glucose (mg/dL) 116 H 110 105 Random Glucose Hemoglobin A1c Calcium Magnesium Total Bilirubin AST ALT Alkaline Phosphatase Lactate Dehydrogenase Total Creatine Kinase Troponin I Total Protein Albumin Globulin Albumin/Globulin Ratio Triglycerides Cholesterol LDL Cholesterol Direct HDL Cholesterol Lipase Free T4 Thyroxine (T4) TSH 3rd Generation Urine Color Urine Appearance Urine pH Ur Specific [place] Urine Protein Urine Glucose (UA) Urine Ketones Urine Blood Urine Nitrate Urine Bilirubin Urine Urobilinogen Ur Leukocyte Esterase Urine RBC Urine WBC Ur Epithelial Cells Urine Bacteria 01/26/17 01/26/17 01/26/17 13:05 15:00 16:27 WBC RBC Hgb Hct MCV MCH MCHC RDW Plt Count MPV Gran % Lymph % (Auto) [place] % (Auto) Eos % (Auto) Baso % (Auto) Gran # Lymph # [place] # Eos # Baso # Sodium Potassium Chloride Carbon Dioxide Anion Gap BUN Creatinine Est GFR ( Amer) Est GFR (Non-Af Amer) POC Glucose (mg/dL) 143 H 128 H Random Glucose Hemoglobin A1c Calcium Magnesium Total Bilirubin AST ALT Alkaline Phosphatase Lactate Dehydrogenase Total Creatine Kinase Troponin I Total Protein Albumin Globulin Albumin/Globulin Ratio Triglycerides 586 H Cholesterol LDL Cholesterol Direct HDL Cholesterol Lipase Free T4 Thyroxine (T4) TSH 3rd Generation Urine Color Urine Appearance Urine pH Ur Specific [place] Urine Protein Urine Glucose (UA) Urine Ketones Urine Blood Urine Nitrate Urine Bilirubin Urine Urobilinogen Ur Leukocyte Esterase Urine RBC Urine WBC Ur Epithelial Cells Urine Bacteria Critical Care Progress Note - Nutrition Nutrition: Nutrition Category Date Time Status NPO Diet [DIET] Diets 01/25/17 Breakfast Ordered Addendum Addendum: 01/26/17 18:25 patient was seen, examined and discussed shoulder to shoulder with Dr. King. Her note reflects my exam, assessment and plan, except as below. Meds/Labs/ONE reviewed. 41 yo with severe HTG-emia but in the absence of acute pancreatitis, who refused plasmapheresis, but substantially improved on insulin drip. TG level is down to 560. insulin drip started and s/c formulation initiated, Loped started. Pain is better controlled. Will start diet. ok to downgrade to telemetry or medsurg. DVT/GI prophylaxis ccm time40 min
--- NOTE | 2017-01-26 13:49 | US ---
HISTORY: rule out SVT COMPARISON: 01/12/2015 TECHNIQUE: Sonographic evaluation of the abdomen. FINDINGS: LIVER: Measures 16.3 cm. Normal echogenicity of the liver parenchyma. No mass. No intrahepatic bile duct dilatation. Normal hepatopetal portal venous flow. GALLBLADDER: Status post cholecystectomy. COMMON BILE DUCT: Measures 9 mm. Dilatation likely related to prior cholecystectomy. No evidence of choledocholithiasis. PANCREAS: Unremarkable as visualized. No mass. No ductal dilatation. RIGHT KIDNEY: Measures 11.5cm. Normal echogenicity. No calculus, mass, or hydronephrosis. LEFT KIDNEY: Measures 11.0cm. Normal echogenicity. No calculus, mass, or hydronephrosis. SPLEEN: Spleen upper limits normal size measuring 12.6 cm. AORTA: No aneurysmal dilatation. IVC: Unremarkable. OTHER FINDINGS: None. IMPRESSION: Status post cholecystectomy. Mildly dilated common bile duct likely related to prior cholecystectomy. Otherwise unremarkable.
--- NOTE | 2017-01-26 13:59 | CP.PCM.PN ---
<Marc Alford - Last Filed: 01/26/17 13:56> Subjective - Date & Time of Evaluation Date of Evaluation: 01/26/17 Time of Evaluation: 07:20 - Subjective Subjective: Medicine Progress note. Dr. Lackey Pt seen and examined at bedside. No acute events overnight. Still c/o Nausea, no episodes of vomiting. Patient remains NPO. Still c/o epigastric pain and states that he get moderate relief with current pain regimen. No CP/SOB. No F/ C. Objective - Vital Signs/Intake and Output Vital Signs (last 24 hours): Temp Pulse Resp BP Pulse Ox 98.1 F 54 L 16 138/70 99 01/26/17 13:37 01/26/17 05:00 01/26/17 05:00 01/26/17 05:00 01/26/17 05:00 Intake and Output: 01/26/17 01/26/17 06:59 18:59 Intake Total 1809.5 5.0 Output Total 1000 Balance 809.5 5.0 - Medications Medications: Current Medications Gemfibrozil (Lopid) 600 mg PO BID [facility] Heparin Sodium (Porcine) (Heparin) 5,000 units SC Q8 DO PRN Reason: Protocol Last Admin: 01/26/17 13:08 Dose: 5,000 units Insulin Human Regular 100 (units/ Sodium Chloride) 100 mls @ 8 mls/hr IV .[id number] PRN; Protocol; 8 UNITS/HR PRN Reason: TITRATE PER MD ORDER Last Titration: 01/26/17 13:07 Dose: 1 units/hr, 1 mls/hr Dextrose/Sodium Chloride (Dextrose 5%/0.45% Ns 1000 Ml) 1,000 mls @ 150 mls/hr IV .Q6H40M [facility] Last Admin: 01/26/17 12:56 Dose: 150 mls/hr Morphine Sulfate (Morphine) 2 mg IVP Q4H PRN PRN Reason: severe pain Last Admin: 01/26/17 13:01 Dose: 2 mg Ondansetron HCl (Zofran Inj) 4 mg IVP Q4H PRN PRN Reason: Nausea/Vomiting Last Admin: 01/26/17 13:24 Dose: 4 mg Pantoprazole Sodium (Protonix Inj) 40 mg IVP DAILY [facility] Last Admin: 01/26/17 09:22 Dose: 40 mg - Labs Labs: 01/26/17 03:08 01/26/17 03:08 PT 11.8 Seconds (9.9-11.8) 01/25/17 09:25 INR 1.08 (0.93-1.08) 01/25/17 09:25 APTT 38.7 Seconds (23.7-30.8) H 01/25/17 09:25 - Constitutional Appears: Well, No Acute Distress - Head Exam Head Exam: ATRAUMATIC, NORMAL INSPECTION, NORMOCEPHALIC - Eye Exam Eye Exam: EOMI, Normal appearance. absent: Scleral icterus - ENT Exam ENT Exam: Mucous Membranes Moist - Respiratory Exam Respiratory Exam: Clear to Ausculation Bilateral, NORMAL BREATHING PATTERN. absent: Wheezes, Respiratory Distress - Cardiovascular Exam Cardiovascular Exam: RRR, +S1, +S2. absent: JVD - GI/Abdominal Exam GI & Abdominal Exam: Soft Additional comments: Epigastric tenderness to palpation. No Rebound. No Guarding - Extremities Exam Extremities Exam: Normal Inspection - Neurological Exam Neurological Exam: Alert, Awake, Oriented x3 - Psychiatric Exam Psychiatric exam: Normal Affect, Normal Mood - Skin Skin Exam: Dry, Intact, Normal Color, Warm Assessment and Plan - Assessment and Plan (Free Text) Assessment: 41yo M with PMHx of Chronic pancreatitis, DM, HLD, Hep C, Arthritis here for eval of severe abd pain. Triglycerides severely elevated upon admission. 1. Abd pain consider secondary to chronic pancreatitis Lipid panel on admission: Triglycerides 3583, Chol 254, LDL <30, HDL 13 TG down trendin today Lipase normal CT Abd/pelvis: small pancreatic pseudocyst, chronic pancreatitis. No acute process. Continue Insulin drip serial Lipid panels trop Negative x3 (ACS ruled out) EKG - NSR @63, Left axis deviation. GI consulted, Dr. Jiménez, recs appreciated f/u HCV RNA f/u Abd US to r/o portal vein or splenic thrombus Nephrology Consulted for possibility of plasmapheresis, Dr. Pearson, recs appreciated Patient refused plasmapheresis at this time pain control Zofran continue IVF 2. Hx of DM currently on Insulin Drip Endocrinology consult requested, Dr. Saavedra, appreciate recs Hold home insulin regimen f/u HbA1c Accuchecks 3. Severe Hypertriglyceridemia serial Lipid panels in the setting of very severe hypertrigliceridemia on insulin drip Patient refuses plasmapheresis continue to monitor Endocrinology consult, Dr. Saavedra, appreciate recs f/u Lipoprotein fractionation Will recommend Fibrate, Fish Oil, Statin upon discharge Gemfibrozil 600mg PO BID 4. Dysuria UA negative f/u Urine C&S 5. PPx Protonix 40mg IV Daily Heparin 5000U SC q8 Discussed case with Dr. Darya Alford PGY1 <Mohit Lackey - Last Filed: 01/26/17 15:02> Objective - Vital Signs/Intake and Output Vital Signs (last 24 hours): Temp Pulse Resp BP Pulse Ox 98.1 F 54 L 16 138/70 99 01/26/17 13:37 01/26/17 05:00 01/26/17 05:00 01/26/17 05:00 01/26/17 05:00 Intake and Output: 01/26/17 01/26/17 06:59 18:59 Intake Total 1809.5 5.0 Output Total 1000 Balance 809.5 5.0 - Medications Medications: Current Medications Atorvastatin Calcium (Lipitor) 20 mg PO DIN DO Gemfibrozil (Lopid) 600 mg PO BID [facility] Heparin Sodium (Porcine) (Heparin) 5,000 units SC Q8 [facility] PRN Reason: Protocol Last Admin: 01/26/17 13:08 Dose: 5,000 units Sodium Chloride (Sodium Chloride 0.9%) 1,000 mls @ 150 mls/hr IV .Q6H40M [facility] Insulin Human Lispro (Humalog Low) 0 units SC ACHS [facility] PRN Reason: Protocol Morphine Sulfate (Morphine) 2 mg IVP Q4H PRN PRN Reason: severe pain Last Admin: 01/26/17 13:01 Dose: 2 mg [id number] Ethyl Esters (Lovaza) 2 gm PO BID [facility] Ondansetron HCl (Zofran Inj) 4 mg IVP Q4H PRN PRN Reason: Nausea/Vomiting Last Admin: 01/26/17 13:24 Dose: 4 mg Pantoprazole Sodium (Protonix Inj) 40 mg IVP DAILY [facility] Last Admin: 01/26/17 09:22 Dose: 40 mg - Labs Labs: 01/26/17 03:08 01/26/17 03:08 PT 11.8 Seconds (9.9-11.8) 01/25/17 09:25 INR 1.08 (0.93-1.08) 01/25/17 09:25 APTT 38.7 Seconds (23.7-30.8) H 01/25/17 09:25 Attending/Attestation - Attestation I have personally seen and examined this patient.: Yes I have fully participated in the care of the patient.: Yes I have reviewed all pertinent clinical information, including history, physical exam and plan: Yes Notes (Text): 01/26/17 14:56 41 year old male with past medical history of chronic pancreatitis, dyslipidemia , diabetes and hepatitis C who presented with chest/epigastric pain with nausea and vomiting. He was found to have elevated triglycerides >3000 [address] CT findings showed stable small pancreatic pseudocyst and chronic pancreatitis. He was admitted to the ICU and started on insulin drip with iv fluids, analgesics, and antiemetics. He refused plasmapheresis. Today he reports his symptoms are slowly improving. His triglycerides are improving. Endocrinology and GI evaluations were appreciated. Recommedned lopid and statin. Abdominal US and doppler are done today; will follow. Serial cardiac enzymes were negative and ACS was ruled out. He has history of hepatitic C and follows up at [facility] clinic. Mohit Lackey MD Hospitalist.
--- NOTE | 2017-01-26 16:03 | PN ---
DATE: 01/26/2017 LOCATION: CCU 129, room 5. This is a 41-year-old male with recent acute pancreatitis on the background of chronic recurrent panc reatitis, admitted here with marked dyslipidemia and received an insulin drip infusion for management of the same. At this time, his glucose levels have improved and have ranged from 110-143 mg/dL. The latest trigly ceride levels are 1121 and remains to have normal lipase values as noted. So at this time, would recommend that the patient be taken off the insulin drip infusion at this time and switched over to a q. 4 hours glucose monitoring with the low dose algorithm using Humalog insul in as given. We also recommend that he be advanced in terms of his diet to a soft, low fat, moderate consistency carb diet as ordered. As he tolerates his meals then will start him back on his premixe d insulin regimen by tomorrow to optimize his metabolic control. Will follow and advise accordingly. Gaby Saavedra MD cc: [id number] TT: 01/26/2017 16:02:59 Confirmation # [id number] Dictation # [id number] [email or web address]
[2017-01-26] MEDS: Insulin Lispro (humaLOG) LOW Coverage SC SCH ×2 (16:29→22:32)
[2017-01-26] MEDS: Omega-3-Acid Ethyl Esters 1 GM Cap PO SCH (17:27)
--- NOTE | 2017-01-26 18:12 | US ---
PROCEDURE: Portal vein duplex ultrasound. CLINICAL HISTORY: Cirrhosis. Deteriorating liver function. Evaluate for portal vein thrombosis. PHYSICIAN(S): Corbin Oates M.D. FINDINGS: The exam is very limited by bowel gas. The splenic vein at the portal splenic confluence is not well seen The extrahepatic portal vein is patent with hepatopetal flow. No sonographic evidence for thrombus or obstruction is seen. The 3 hepatic veins are visualized centrally and patent. The hepatic artery is patent. The spleen is enlarged. No significant ascites is noted IMPRESSION: 1. Patent portal vein with hepatopetal flow. 2. Limited study.
[2017-01-27] MEDS: Morphine 2 mg/ml ISec IVP PRN ×5 (03:16→20:41)
[2017-01-27 07:20] LABS: ADD MANUAL DIFF? NO
[2017-01-27 07:25] LABS: BASO # 0.05 K/mm3 (0.0-2.0); BASO % 1.2 % (0.0-3.0); EOS # 0.2 (0.0-0.7); EOS % 3.7 % (1.5-5.0); GRAN # 2.16 (1.4-6.5); GRAN % 50.6 % (50.0-68.0); HEMATOCRIT 35.5 % (42.0-52.0); LYMPH # 1.7 (1.2-3.4); LYMPH % 38.6 % (22.0-35.0); MEAN CELL VOLUME 74.3 fL (80.0-105.0); MEAN CORPUSCULAR HEMOGLOBIN 25.7 pg (25.0-35.0); MEAN CORPUSCULAR HGB CONC 34.6 g/dl (31.0-37.0); MONO # 0.3 (0.1-0.6); MONO % 5.9 % (1.0-6.0); PLATELET COUNT 139 10^3/uL (120.0-450.0); RED CELL DISTRIBUTION WIDTH 15.8 % (11.5-14.5); WHITE BLOOD COUNT 4.3 10^3/ul (4.5-11.0)
[2017-01-27 07:40] LABS: ALB/GLOB RATIO 1.1 (1.1-1.8); ALKALINE PHOSPHATASE 113 U/L (38-133); ALT/SGPT 48 U/L (7-56); AST/SGOT 25 U/L (15-59); BILIRUBIN,TOTAL 0.7 mg/dL (0.2-1.3); BLOOD UREA NITROGEN 6 mg/dL (7-21); CALCIUM 8.9 mg/dL (8.4-10.5); CARBON DIOXIDE 24 mmol/L (21-33); CHLORIDE 102 mmol/L (98-107); CHOLESTEROL 191 mg/dL (130-200); GFR AFRICAN-AMERICAN > 60; GLUCOSE,RANDOM 293 mg/dL (70-110); LIPASE 41 U/L (23-300); POTASSIUM 3.8 mmol/L (3.6-5.0); SODIUM 134 mmol/L (132-148); TOTAL PROTEIN 6.9 g/dL (5.8-8.3)
[2017-01-27] MEDS: Insulin Lispro (humaLOG) LOW Coverage SC SCH ×2 (08:02→12:20)
[2017-01-27] MEDS: Omega-3-Acid Ethyl Esters 1 GM Cap PO SCH ×2 (09:52→17:06)
--- NOTE | 2017-01-27 12:07 | CP.PCM.PN ---
Subjective - Date & Time of Evaluation Date of Evaluation: 01/27/17 Time of Evaluation: 12:01 - Subjective Subjective: Patient seen and examined, resting in bed comfortably eating lunch. He continues to endorse epigastric abdominal pain, 8/10 intensity. He denies nausea, vomiting, diarrhea (no bowel movements in past few days), fever/chills. He is tolerating PO diet without difficulty. Review of vitals from today are normal. 12 point review of systems performed, negative aside from mentioned above. Objective - Vital Signs/Intake and Output Vital Signs (last 24 hours): Temp Pulse Resp BP Pulse Ox 97.9 F 86 20 115/79 100 01/27/17 07:20 01/27/17 07:20 01/27/17 07:20 01/27/17 07:20 01/27/17 07:20 Intake and Output: 01/27/17 01/27/17 06:59 18:59 Intake Total 840 260 Balance 840 260 - Medications Medications: Current Medications Atorvastatin Calcium (Lipitor) 20 mg PO DIN [facility] Last Admin: 01/26/17 17:28 Dose: 20 mg Gemfibrozil (Lopid) 600 mg PO BID [facility] Last Admin: 01/27/17 09:53 Dose: 600 mg Heparin Sodium (Porcine) (Heparin) 5,000 units SC Q8 [facility] PRN Reason: Protocol Last Admin: 01/27/17 06:20 Dose: 5,000 units Sodium Chloride (Sodium Chloride 0.9%) 1,000 mls @ 150 mls/hr IV .Q6H40M [facility] Last Admin: 01/26/17 15:00 Dose: 150 mls/hr Insulin Human Lispro (Humalog Low) 0 units SC ACHS [facility] PRN Reason: Protocol Last Admin: 01/27/17 08:02 Dose: 4 units Morphine Sulfate (Morphine) 2 mg IVP Q4H PRN PRN Reason: severe pain Last Admin: 01/27/17 07:49 Dose: 2 mg Goouw-5-Vhkd Ethyl Esters (Lovaza) 2 gm PO BID [facility] Last Admin: 01/27/17 09:52 Dose: 2 gm Ondansetron HCl (Zofran Inj) 4 mg IVP Q4H PRN PRN Reason: Nausea/Vomiting Last Admin: 01/27/17 08:02 Dose: 4 mg Pantoprazole Sodium (Protonix Inj) 40 mg IVP DAILY [facility] Last Admin: 01/27/17 09:52 Dose: 40 mg - Labs Labs: 01/27/17 07:00 01/27/17 07:00 PT 11.8 Seconds (9.9-11.8) 01/25/17 09:25 INR 1.08 (0.93-1.08) 01/25/17 09:25 APTT 38.7 Seconds (23.7-30.8) H 01/25/17 09:25 - Constitutional Appears: Non-toxic, No Acute Distress - Head Exam Head Exam: NORMAL INSPECTION - Eye Exam Eye Exam: EOMI, Normal appearance - ENT Exam ENT Exam: Mucous Membranes Moist - Respiratory Exam Respiratory Exam: Clear to Ausculation Bilateral - Cardiovascular Exam Cardiovascular Exam: REGULAR RHYTHM, +S1, +S2 - GI/Abdominal Exam GI & Abdominal Exam: Soft, Tenderness Additional comments: epigastric tenderness to deep palpation, no rebound/guarding midline and RUQ surgical scars present - Extremities Exam Extremities Exam: Normal Inspection - Skin Skin Exam: Dry, Intact, Normal Color, Warm Assessment and Plan - Assessment and Plan (Free Text) Assessment: Chronic pancreatitis secondary to hypertriglyceridemia Chronic HCV Abdominal US reviewed by me showing patent vasculature, s/p cholecystectomy Abdominal pain, pancreatic pseudocyst Plan: - Diet as tolerated - Lipid management as per endocrine team - Pain control, IVF hydration therapy - Suggest pancreatic enzyme supplementation - LFTs and lipase normal, no indication to continue monitoring at this time - Following hospital discharge, patient to follow up with primary GI Dr. Salomon at [facility] for ongoing management
[2017-01-27] MEDS: Sodium Chloride 0.9% 1,000 ML IV SCH (12:18)
--- NOTE | 2017-01-27 13:28 | PN ---
DATE: 01/27/2017 LOCATION: Room 560. This is a 41-year-old male with recent acute pancreatitis on the background of chronic recurrent panc reatitis related to marked dyslipidemia and is now being followed closely for metabolic management. He received vigorous IV hydration and intensive insulin therapy with an insulin drip infusion in the ICU as noted. His glycemic levels are fluctuating as expected as he is currently on a low-dose corre ction scale using Humalog insulin as given as he was just started on solid food last night. No furth er vomiting or dyspepsia or abdominal pain has been noted today as per the nursing staff. His latest glucose values have ranged from 272-300 and 303 mg/dL. His latest chemistries include a BUN of 6, s odium 134, potassium 3.8, chloride 102, CO2 24, glucose 293 and creatinine 0.6. His latest triglycer adonis levels are 696 as noted. The liver function studies have improved as noted. His TSH is 1.20. S o at this time, we will restart him on his premixed insulin regimen as he was using Novolin 70/30 via ls at home as noted. We will start him on Humulin 70/30 given as 30 units a.c. breakfast and 20 unit s a.c. dinner to start today. We will also add basal insulin to control the fasting hyperglycemic ac celerations as noted and give him Levemir at 14 units subQ at bedtime daily to start tonight. We cira l titrate incrementally as indicated to optimize metabolic control. We will also modify the IV hydra tion and switch him now to half normal saline at 100 mL per hour and obtain serial chemistries and adkins pplement accordingly as needed. We will obtain serial lipid panel level as noted. The lipoprotein f ractionation will be sent out to a reference lab and this will confirm and/or negate the presence of underlying familial combined dyslipidemia. So we will continue the high dose of omega 3 fatty acids given as 4 g per day with gemfibrozil as given. We will follow and advise accordingly. Gaby Saavedra MD cc: [id number] TT: 01/27/2017 13:27:47 Confirmation # [id number] Dictation # [id number] tn
[2017-01-27] MEDS: Amylase/Lipase/Protease 5,000 U ECC PO SCH ×3 (13:29→21:33)
[2017-01-27] MEDS ORDERED: Amylase/Lipase/Protease 5,000 U ECC PO SCH (14:00)
--- NOTE | 2017-01-27 15:45 | CP.PCM.PN ---
<Marc Alford - Last Filed: 01/27/17 15:57> Subjective - Date & Time of Evaluation Date of Evaluation: 01/27/17 Time of Evaluation: 07:30 - Subjective Subjective: Medicine Progress note. Dr. Lackey Pt seen and examined at bedside. Patient was transferred to the Med/Surg floor from the ICU yesterday evening. Insulin Drip was discontinued yesterday evening. Patient states that he started having solid food last night. C/o mild nausea, no vomiting. Still with abdominal pain. No F/C. No CP/SOB. No new complaints. Objective - Vital Signs/Intake and Output Vital Signs (last 24 hours): Temp Pulse Resp BP Pulse Ox 97.9 F 86 20 115/79 100 01/27/17 07:20 01/27/17 07:20 01/27/17 07:20 01/27/17 07:20 01/27/17 07:20 Intake and Output: 01/27/17 01/27/17 06:59 18:59 Intake Total 840 260 Balance 840 260 - Medications Medications: Current Medications Amylase (Pancrease 80744 U-5000 U-05710 U) 5,000 u PO 5XD [facility] Last Admin: 01/27/17 13:29 Dose: 5,000 u Atorvastatin Calcium (Lipitor) 20 mg PO DIN [facility] Last Admin: 01/26/17 17:28 Dose: 20 mg Gemfibrozil (Lopid) 600 mg PO BID [facility] Last Admin: 01/27/17 09:53 Dose: 600 mg Heparin Sodium (Porcine) (Heparin) 5,000 units SC Q8 [facility] PRN Reason: Protocol Last Admin: 01/27/17 13:29 Dose: 5,000 units Sodium Chloride (Sodium Chloride 0.45%) 1,000 mls @ 100 mls/hr IV .Q10H [facility] Insulin Detemir (Levemir) 14 unit SC HS [facility] Insulin Human Regular (Humulin R Low) 0 units SC ACHS [facility] PRN Reason: Protocol Morphine Sulfate (Morphine) 2 mg IVP Q4H PRN PRN Reason: severe pain Last Admin: 01/27/17 12:19 Dose: 2 mg Nnlpv-9-Tnqm Ethyl Esters (Lovaza) 2 gm PO BID [facility] Last Admin: 01/27/17 09:52 Dose: 2 gm Ondansetron HCl (Zofran Inj) 4 mg IVP Q4H PRN PRN Reason: Nausea/Vomiting Last Admin: 01/27/17 12:20 Dose: 4 mg Pantoprazole Sodium (Protonix Inj) 40 mg IVP DAILY [facility] Last Admin: 01/27/17 09:52 Dose: 40 mg - Labs Labs: 01/27/17 07:00 01/27/17 07:00 PT 11.8 Seconds (9.9-11.8) 01/25/17 09:25 INR 1.08 (0.93-1.08) 01/25/17 09:25 APTT 38.7 Seconds (23.7-30.8) H 01/25/17 09:25 - Constitutional Appears: Well, No Acute Distress - Head Exam Head Exam: ATRAUMATIC, NORMAL INSPECTION, NORMOCEPHALIC - Eye Exam Eye Exam: EOMI, Normal appearance. absent: Scleral icterus - ENT Exam ENT Exam: Mucous Membranes Moist - Respiratory Exam Respiratory Exam: Clear to Ausculation Bilateral, NORMAL BREATHING PATTERN. absent: Wheezes - Cardiovascular Exam Cardiovascular Exam: +S1, +S2. absent: JVD - GI/Abdominal Exam GI & Abdominal Exam: Soft Additional comments: Epigastric tenderness to palpation. No Rebound. No Guarding. - Extremities Exam Extremities Exam: Normal Inspection - Neurological Exam Neurological Exam: Alert, Awake, Oriented x3 - Psychiatric Exam Psychiatric exam: Normal Affect, Normal Mood - Skin Skin Exam: Dry, Intact, Normal Color, Warm Assessment and Plan - Assessment and Plan (Free Text) Assessment: 41yo M with PMHx of Chronic pancreatitis, DM, HLD, Hep C, Arthritis here for eval of severe abd pain. Triglycerides severely elevated upon admission. 1. Abd pain consider secondary to chronic pancreatitis Lipid panel on admission: Triglycerides 3583, Chol 254, LDL <30, HDL 13 TG down trendin Lipase normal CT Abd/pelvis: small pancreatic pseudocyst, chronic pancreatitis. No acute process. serial Lipid panels trop Negative x3 (ACS ruled out) EKG - NSR @63, Left axis deviation. GI consulted, Dr. Jiménez, recs appreciated f/u HCV RNA Abd US - no thrombus. CBD dilated to 9mm in the setting of previous Cholecystectomy. No Choledocholithiasis. Upon Discharge patient to follow up with Primary GI: Dr. Salomon at [facility] Nephrology Consulted for possibility of plasmapheresis, Dr. Pearson, recs appreciated Patient refused plasmapheresis at this time pain control Zofran continue IVF Resume Pancrease premeal On Diabetic, heart healthy soft diet 2. Hx of DM Endocrinology consult requested, Dr. Saavedra, appreciate recs Humulin 70/30 30U ACB, 20U ACD Levemir 14U HS HbA1c 13.1 Accuchecks ACHS 3. Severe Hypertriglyceridemia serial Lipid panels in the setting of very severe hypertrigliceridemia Patient refuses plasmapheresis continue to monitor Endocrinology consult, Dr. Saavedra, appreciate recs f/u Lipoprotein fractionation Atorvastatin 20mg PO HS [place]-3 2g PO BID Gemfibrozil 600mg PO BID 4. Dysuria UA negative Urine C&S NGTD 5. PPx Protonix 40mg IV Daily Heparin 5000U SC q8 Discussed case with Dr. Darya Alford PGY1 <Mohit Lackey - Last Filed: 01/27/17 16:35> Objective - Vital Signs/Intake and Output Vital Signs (last 24 hours): Temp Pulse Resp BP Pulse Ox 98.3 F 57 L 20 132/79 99 01/27/17 16:30 01/27/17 16:30 01/27/17 16:30 01/27/17 16:30 01/27/17 16:30 Intake and Output: 01/27/17 01/27/17 06:59 18:59 Intake Total 840 260 Balance 840 260 - Medications Medications: Current Medications Amylase (Pancrease 42851 U-5000 U-73458 U) 5,000 u PO 5XD [facility] Last Admin: 01/27/17 13:29 Dose: 5,000 u Atorvastatin Calcium (Lipitor) 20 mg PO DIN [facility] Last Admin: 01/26/17 17:28 Dose: 20 mg Gemfibrozil (Lopid) 600 mg PO BID [facility] Last Admin: 01/27/17 09:53 Dose: 600 mg Heparin Sodium (Porcine) (Heparin) 5,000 units SC Q8 [facility] PRN Reason: Protocol Last Admin: 01/27/17 13:29 Dose: 5,000 units Sodium Chloride (Sodium Chloride 0.45%) 1,000 mls @ 100 mls/hr IV .Q10H [facility] Insulin Detemir (Levemir) 14 unit SC HS [facility] Insulin Human Regular (Humulin R Low) 0 units SC ACHS DO PRN Reason: Protocol Morphine Sulfate (Morphine) 2 mg IVP Q4H PRN PRN Reason: severe pain Last Admin: 01/27/17 12:19 Dose: 2 mg Uuevn-5-Lioe Ethyl Esters (Lovaza) 2 gm PO BID [facility] Last Admin: 01/27/17 09:52 Dose: 2 gm Ondansetron HCl (Zofran Inj) 4 mg IVP Q4H PRN PRN Reason: Nausea/Vomiting Last Admin: 01/27/17 12:20 Dose: 4 mg Pantoprazole Sodium (Protonix Inj) 40 mg IVP DAILY [facility] Last Admin: 01/27/17 09:52 Dose: 40 mg - Labs Labs: 01/27/17 07:00 01/27/17 07:00 PT 11.8 Seconds (9.9-11.8) 01/25/17 09:25 INR 1.08 (0.93-1.08) 01/25/17 09:25 APTT 38.7 Seconds (23.7-30.8) H 01/25/17 09:25 Attending/Attestation - Attestation I have personally seen and examined this patient.: Yes I have fully participated in the care of the patient.: Yes I have reviewed all pertinent clinical information, including history, physical exam and plan: Yes Notes (Text): 01/27/17 16:33 41 year old male with past medical history of chronic pancreatitis, dyslipidemia , diabetes and hepatitis C who presented with chest/epigastric pain with nausea and vomiting secondary to pancreatitis. He was found to have elevated triglycerides >[address] CT findings showed stable small pancreatic pseudocyst and chronic pancreatitis. He was started on insulin drip with iv fluids, analgesics, and antiemetics with improvement of symptoms and triglyceride levels. He is being followed by GI and endocrinology. His insulin drip was discontinued yesterday and his diet was advance. Will decrease his iv fluids and start pancrease enzymes with meals. Repeat triglyceride levels in AM. D/c planning if symptoms continue to improve. Serial cardiac enzymes were negative and ACS was ruled out. He has history of hepatitic C and follows up at [facility] clinic. Mohit Lackey MD Hospitalist.
[2017-01-27] MEDS ORDERED: Insulin Human NPH/Reg 70/30 Vial(3 ml) SC SCH (16:30)
[2017-01-27] MEDS: Insulin Reg-LOW-Coverage SC SCH ×2 (16:40→22:13)
[2017-01-27] MEDS: Sodium Chloride 0.45% 1,000 ML IV SCH (17:18)
[2017-01-27] MEDS ORDERED: Insulin Detemir 100 units/ml Vial (Levemir) SC SCH (22:00)
[2017-01-28] MEDS: Morphine 2 mg/ml ISec IVP PRN ×6 (00:48→23:02)
[2017-01-28 01:03] LABS: HCV RNA QN PCR IU/ML 331617 IU/mL (<15); HCV RNA QN PCR LOG IU/ML 5.52 log IU/mL (<1.18)
[2017-01-28] MEDS: Amylase/Lipase/Protease 5,000 U ECC PO SCH ×4 (06:19→17:27)
[2017-01-28 06:56] LABS: ADD MANUAL DIFF? NO
[2017-01-28 07:08] LABS: BASO # 0.05 K/mm3 (0.0-2.0); BASO % 1.5 % (0.0-3.0); EOS # 0.2 (0.0-0.7); EOS % 5.5 % (1.5-5.0); GRAN % 43.7 % (50.0-68.0); HEMATOCRIT 33.1 % (42.0-52.0); LYMPH # 1.4 (1.2-3.4); MEAN CELL VOLUME 73.9 fL (80.0-105.0); MEAN CORPUSCULAR HEMOGLOBIN 26.1 pg (25.0-35.0); MEAN CORPUSCULAR HGB CONC 35.3 g/dl (31.0-37.0); MEAN PLATELET VOLUME 10.9 fl (7.0-11.0); MONO # 0.3 (0.1-0.6); MONO % 7.3 % (1.0-6.0); PLATELET COUNT 120 10^3/uL (120.0-450.0); RED CELL DISTRIBUTION WIDTH 15.3 % (11.5-14.5); WHITE BLOOD COUNT 3.4 10^3/ul (4.5-11.0)
[2017-01-28 07:21] LABS: ALKALINE PHOSPHATASE 103 U/L (38-133); ALT/SGPT 45 U/L (7-56); AST/SGOT 24 U/L (15-59); BILIRUBIN,TOTAL 0.6 mg/dL (0.2-1.3); BLOOD UREA NITROGEN 4 mg/dL (7-21); CALCIUM 8.6 mg/dL (8.4-10.5); CARBON DIOXIDE 24 mmol/L (21-33); CHLORIDE 104 mmol/L (95-110); GFR AFRICAN-AMERICAN > 60; GLUCOSE,RANDOM 164 mg/dL (70-110); POTASSIUM 3.4 mmol/L (3.6-5.0); SODIUM 136 mmol/L (132-148); TOTAL PROTEIN 6.7 g/dL (5.8-8.3)
[2017-01-28 07:30] LABS: CHOLESTEROL 151 mg/dL (130-200)
[2017-01-28] MEDS ORDERED: Insulin Human NPH/Reg 70/30 Vial(3 ml) SC SCH (07:30)
[2017-01-28] MEDS: Insulin Reg-LOW-Coverage SC SCH ×3 (08:00→15:56)
[2017-01-28] MEDS ORDERED: Potassium Chloride 40 mEq/30 ml LIQ UD PO ONE (08:48)
[2017-01-28] MEDS: POLYETHYLENE GLYCOL 3350 17 GM/Dose PACKET PO SCH (10:16)
[2017-01-28] MEDS: Omega-3-Acid Ethyl Esters 1 GM Cap PO SCH ×2 (10:18→17:26)
[2017-01-28] MEDS: Sodium Chloride 0.45% 1,000 ML IV SCH (10:18)
[2017-01-28] MEDS ORDERED: oxyCODONE 5 mg Immediate Release Tab PO PRN (10:28)
--- NOTE | 2017-01-28 11:08 | CP.PCM.PN ---
Subjective - Date & Time of Evaluation Date of Evaluation: 01/28/17 Time of Evaluation: 11:04 - Subjective Subjective: RFV: Pancreatitis S: complains of upper abdominal pain radiating to back. Tolerating diet. c/o constipation. Objective - Vital Signs/Intake and Output Vital Signs (last 24 hours): Temp Pulse Resp BP Pulse Ox 97.6 F 66 18 122/80 97 01/28/17 07:31 01/28/17 07:31 01/28/17 07:31 01/28/17 07:31 01/28/17 07:31 Intake and Output: 01/28/17 01/28/17 06:59 18:59 Intake Total 4440 Balance 4440 - Medications Medications: Current Medications Amylase (Pancrease 12576 U-5000 U-64296 U) 25,000 u PO TID [facility] Last Admin: 01/28/17 10:17 Dose: 25,000 u Atorvastatin Calcium (Lipitor) 20 mg PO DIN [facility] Last Admin: 01/27/17 16:41 Dose: 20 mg Gemfibrozil (Lopid) 600 mg PO BID [facility] Last Admin: 01/28/17 10:17 Dose: 600 mg Heparin Sodium (Porcine) (Heparin) 5,000 units SC Q8 [facility] PRN Reason: Protocol Last Admin: 01/28/17 06:19 Dose: 5,000 units Sodium Chloride (Sodium Chloride 0.45%) 1,000 mls @ 100 mls/hr IV .Q10H [facility] Last Admin: 01/28/17 10:18 Dose: 100 mls/hr Insulin Detemir (Levemir) 14 unit SC HS [facility] Last Admin: 01/27/17 21:34 Dose: 14 unit Insulin Human Regular (Humulin R Low) 0 units SC ACHS [facility] PRN Reason: Protocol Last Admin: 01/28/17 08:00 Dose: Not Given Morphine Sulfate (Morphine) 1 mg IVP Q4H PRN PRN Reason: Pain, severe (8-10) Qkejc-7-Rqiz Ethyl Esters (Lovaza) 2 gm PO BID [facility] Last Admin: 01/28/17 10:18 Dose: 2 gm Ondansetron HCl (Zofran Inj) 4 mg IVP Q4H PRN PRN Reason: Nausea/Vomiting Last Admin: 01/28/17 10:17 Dose: 4 mg Oxycodone HCl (Oxycodone Immediate Release Tab) 5 mg PO Q6H PRN PRN Reason: Pain, moderate (4-7) Pantoprazole Sodium (Protonix Inj) 40 mg IVP DAILY [facility] Last Admin: 01/28/17 10:17 Dose: 40 mg Polyethylene Glycol (Miralax) 17 gm PO DAILY [facility] Last Admin: 01/28/17 10:16 Dose: 17 gm - Labs Labs: 01/28/17 06:54 01/28/17 06:54 PT 11.8 Seconds (9.9-11.8) 01/25/17 09:25 INR 1.08 (0.93-1.08) 01/25/17 09:25 APTT 38.7 Seconds (23.7-30.8) H 01/25/17 09:25 - Constitutional Appears: No Acute Distress, Chronically Ill - Head Exam Head Exam: ATRAUMATIC, NORMOCEPHALIC - Eye Exam Eye Exam: Normal appearance. absent: Scleral icterus - ENT Exam ENT Exam: Mucous Membranes Moist, Normal Oropharynx - Neck Exam Neck Exam: absent: Lymphadenopathy, Thyromegaly - Respiratory Exam Respiratory Exam: Clear to Ausculation Bilateral, NORMAL BREATHING PATTERN. absent: Wheezes, Respiratory Distress - Cardiovascular Exam Cardiovascular Exam: REGULAR RHYTHM, +S1, +S2 - GI/Abdominal Exam GI & Abdominal Exam: Soft. absent: Distended, Tenderness - Extremities Exam Extremities Exam: Normal Capillary Refill - Neurological Exam Neurological Exam: Alert, Oriented x3 - Psychiatric Exam Psychiatric exam: Normal Affect, Normal Mood - Skin Skin Exam: Dry, Normal Color, Warm Assessment and Plan - Assessment and Plan (Free Text) Assessment: 41 year old male with h/o HCV, Hypertriglyceridemia, chronic pancreatitis with pseudocyst a/w abdominal pain. 1. Chronic pancreatitis 2. Hepatitis C 3. Pseudocyst 4. Hypertriglyceridemia Plan: - Low fat Diet as tolerated - Lipid management as per endocrine team - Pain control, IVF hydration - Recommend pancreatic enzyme supplementation with [address]85 units of lipase per meal along with protonix 40 mg daily - no indication for intervention/EUS at this time - Following hospital discharge, patient to follow up with primary GI Dr. Salomon at [facility] for ongoing management
--- NOTE | 2017-01-28 13:54 | CP.PCM.PN ---
<PrashanthMarc kimbrough - Last Filed: 01/28/17 13:41> Subjective - Date & Time of Evaluation Date of Evaluation: 01/28/17 Time of Evaluation: 09:30 - Subjective Subjective: Medicine Progress note. Dr. Lackey Pt seen and examined at bedside. No acute events overnight. Stats that the pain is slightly improved. C/o constipation. Mild nausea with food, no vomiting. No F /C. No CP/SOB. Ambulating well within room Objective - Vital Signs/Intake and Output Vital Signs (last 24 hours): Temp Pulse Resp BP Pulse Ox 97.6 F 66 18 122/80 97 01/28/17 07:31 01/28/17 07:31 01/28/17 07:31 01/28/17 07:31 01/28/17 07:31 Intake and Output: 01/28/17 01/28/17 06:59 18:59 Intake Total 4440 Balance 4440 - Medications Medications: Current Medications Amylase (Pancrease 09318 U-5000 U-14966 U) 25,000 u PO TID [facility] Last Admin: 01/28/17 13:07 Dose: 25,000 u Atorvastatin Calcium (Lipitor) 20 mg PO DIN [facility] Last Admin: 01/27/17 16:41 Dose: 20 mg Gemfibrozil (Lopid) 600 mg PO BID [facility] Last Admin: 01/28/17 10:17 Dose: 600 mg Heparin Sodium (Porcine) (Heparin) 5,000 units SC Q8 DO PRN Reason: Protocol Last Admin: 01/28/17 13:07 Dose: 5,000 units Sodium Chloride (Sodium Chloride 0.45%) 1,000 mls @ 100 mls/hr IV .Q10H [facility] Last Admin: 01/28/17 10:18 Dose: 100 mls/hr Insulin Detemir (Levemir) 14 unit SC HS [facility] Last Admin: 01/27/17 21:34 Dose: 14 unit Insulin Human Regular (Humulin R Low) 0 units SC ACHS [facility] PRN Reason: Protocol Last Admin: 01/28/17 12:02 Dose: 4 units Morphine Sulfate (Morphine) 1 mg IVP Q4H PRN PRN Reason: Pain, severe (8-10) [id number] Ethyl Esters (Lovaza) 2 gm PO BID [facility] Last Admin: 01/28/17 10:18 Dose: 2 gm Ondansetron HCl (Zofran Inj) 4 mg IVP Q4H PRN PRN Reason: Nausea/Vomiting Last Admin: 01/28/17 10:17 Dose: 4 mg Oxycodone HCl (Oxycodone Immediate Release Tab) 5 mg PO Q6H PRN PRN Reason: Pain, moderate (4-7) Pantoprazole Sodium (Protonix Inj) 40 mg IVP DAILY [facility] Last Admin: 01/28/17 10:17 Dose: 40 mg Polyethylene Glycol (Miralax) 17 gm PO DAILY [facility] Last Admin: 01/28/17 10:16 Dose: 17 gm - Labs Labs: 01/28/17 06:54 01/28/17 06:54 PT 11.8 Seconds (9.9-11.8) 01/25/17 09:25 INR 1.08 (0.93-1.08) 01/25/17 09:25 APTT 38.7 Seconds (23.7-30.8) H 01/25/17 09:25 - Constitutional Appears: Well, No Acute Distress - Head Exam Head Exam: ATRAUMATIC, NORMAL INSPECTION, NORMOCEPHALIC - Eye Exam Eye Exam: EOMI, Normal appearance. absent: Scleral icterus - ENT Exam ENT Exam: Mucous Membranes Moist, Normal Exam - Neck Exam Neck Exam: Full ROM - Respiratory Exam Respiratory Exam: Clear to Ausculation Bilateral, NORMAL BREATHING PATTERN. absent: Wheezes, Respiratory Distress - Cardiovascular Exam Cardiovascular Exam: RRR, +S1, +S2. absent: JVD - GI/Abdominal Exam GI & Abdominal Exam: Soft. absent: Distended Additional comments: Epigastric tenderness, improved since yesterday. - Extremities Exam Extremities Exam: Normal Inspection - Neurological Exam Neurological Exam: Alert, Awake, Oriented x3 - Psychiatric Exam Psychiatric exam: Normal Affect, Normal Mood - Skin Skin Exam: Dry, Intact, Normal Color, Warm Assessment and Plan - Assessment and Plan (Free Text) Assessment: 41yo M with PMHx of Chronic pancreatitis, DM, HLD, Hep C, Arthritis here for eval of severe abd pain. Triglycerides severely elevated upon admission. 1. Abd pain consider secondary to chronic pancreatitis Lipid panel on admission: Triglycerides 3583, Chol 254, LDL <30, HDL 13 TG down trendin Lipase normal CT Abd/pelvis: small pancreatic pseudocyst, chronic pancreatitis. No acute process. serial Lipid panels trop Negative x3 (ACS ruled out) EKG - NSR @63, Left axis deviation. GI consulted, Dr. Jiménez, suzans appreciated f/u HCV RNA [place] Pancrease [place] 37157Q with every meal Abd US - no thrombus. CBD dilated to 9mm in the setting of previous Cholecystectomy. No Choledocholithiasis. Upon Discharge patient to follow up with Primary GI: Dr. Salomon at [facility] Nephrology Consulted for possibility of plasmapheresis, cesar Myrick appreciated Patient refused plasmapheresis at this time Transition to PO pain control Zofran continue IVF On Diabetic, heart healthy soft diet 2. Hx of DM Endocrinology consult requested, Dr. Saavedra, appreciate recs Humulin 70/30 30U ACB, 20U ACD Levemir 14U HS HbA1c 13.1 Accuchecks ACHS 3. Severe Hypertriglyceridemia serial Lipid panels in the setting of very severe hypertrigliceridemia Patient refuses plasmapheresis continue to monitor Endocrinology consult, Dr. Saavedra, appreciate recs f/u Lipoprotein fractionation Continue to trend TG. Ideally would prefer level <500 Atorvastatin 20mg PO HS [place]-3 2g PO BID Gemfibrozil 600mg PO BID 4. Dysuria UA negative Urine C&S NGTD 5. PPx Protonix 40mg IV Daily Heparin 5000U SC q8 Discussed case with Dr. Darya Alford PGY1 <Mohit Lackey - Last Filed: 01/28/17 14:08> Objective - Vital Signs/Intake and Output Vital Signs (last 24 hours): Temp Pulse Resp BP Pulse Ox 97.6 F 66 18 122/80 97 01/28/17 07:31 01/28/17 07:31 01/28/17 07:31 01/28/17 07:31 01/28/17 07:31 Intake and Output: 01/28/17 01/28/17 06:59 18:59 Intake Total 4440 Balance 4440 - Medications Medications: Current Medications Amylase (Pancrease 28731 U-5000 U-36295 U) 25,000 u PO TID [facility] Last Admin: 01/28/17 13:07 Dose: 25,000 u Atorvastatin Calcium (Lipitor) 20 mg PO DIN [facility] Last Admin: 01/27/17 16:41 Dose: 20 mg Gemfibrozil (Lopid) 600 mg PO BID [facility] Last Admin: 01/28/17 10:17 Dose: 600 mg Heparin Sodium (Porcine) (Heparin) 5,000 units SC Q8 DO PRN Reason: Protocol Last Admin: 01/28/17 13:07 Dose: 5,000 units Sodium Chloride (Sodium Chloride 0.45%) 1,000 mls @ 100 mls/hr IV .Q10H [facility] Last Admin: 01/28/17 10:18 Dose: 100 mls/hr Insulin Detemir (Levemir) 14 unit SC HS [facility] Last Admin: 01/27/17 21:34 Dose: 14 unit Insulin Human Regular (Humulin R Low) 0 units SC ACHS [facility] PRN Reason: Protocol Last Admin: 01/28/17 12:02 Dose: 4 units Morphine Sulfate (Morphine) 1 mg IVP Q4H PRN PRN Reason: Pain, severe (8-10) [id number] Ethyl Esters (Lovaza) 2 gm PO BID [facility] Last Admin: 01/28/17 10:18 Dose: 2 gm Ondansetron HCl (Zofran Inj) 4 mg IVP Q4H PRN PRN Reason: Nausea/Vomiting Last Admin: 01/28/17 10:17 Dose: 4 mg Oxycodone HCl (Oxycodone Immediate Release Tab) 5 mg PO Q6H PRN PRN Reason: Pain, moderate (4-7) Pantoprazole Sodium (Protonix Inj) 40 mg IVP DAILY [facility] Last Admin: 01/28/17 10:17 Dose: 40 mg Polyethylene Glycol (Miralax) 17 gm PO DAILY [facility] Last Admin: 01/28/17 10:16 Dose: 17 gm - Labs Labs: 01/28/17 06:54 01/28/17 06:54 PT 11.8 Seconds (9.9-11.8) 01/25/17 09:25 INR 1.08 (0.93-1.08) 01/25/17 09:25 APTT 38.7 Seconds (23.7-30.8) H 01/25/17 09:25 Attending/Attestation - Attestation I have personally seen and examined this patient.: Yes I have fully participated in the care of the patient.: Yes I have reviewed all pertinent clinical information, including history, physical exam and plan: Yes Notes (Text): 01/28/17 14:03 41 year old male with past medical history of chronic pancreatitis, dyslipidemia , diabetes and hepatitis C who presented with chest/epigastric pain with nausea and vomiting secondary to pancreatitis. He was found to have elevated triglycerides >[address] CT findings showed stable small pancreatic pseudocyst and chronic pancreatitis. Serial cardiac enzymes were negative and ACS was ruled out. He was started on insulin drip with iv fluids, analgesics, and antiemetics with improvement of symptoms and triglyceride levels. He is on lopid, statin and lovaza. His triglycerides are 717 today. He is being following by GI and endocrinology. He reports his pain is improving and he is beginning to tolerate his diet. Continue with pancrease. Will begin to taper his narcotics and decrease his iv fluids. D/c planning likely in AM if his symptoms and triglycerides improve. He will follow up at [facility] for hepatitis C. Will replete and repeat potassium. Mohit Lackey MD Hospitalist.
[2017-01-28] MEDS: Insulin Human NPH/Reg 70/30 Vial(3 ml) SC SCH (16:05)
[2017-01-28 16:20] VITALS: O2SAT 99
--- NOTE | 2017-01-28 19:05 | PN ---
DATE: 01/28/2017 ROOM: 560 SUBJECTIVE: This is a 41-year-old male with recent uncontrolled type 2 insulin-requiring diabetes, a lso with a concomitant acute pancreatitis on the background of chronic recurrent pancreatitis, now be ing followed closely for metabolic management. He tolerated his solid food as noted very well and hi s lipid levels are declining as expected. His glycemic fluctuations are also improving as noted. Th e latest chemistries showed a BUN of 4, sodium 136, potassium 3.4, chloride 104, CO2 of 24, glucose 1 64 and creatinine 0.5. His triglyceride values have ranged from 696 to 586 and 717 mg/dL. So at thi s time, we will continue the current fish oil and fenofibrate medications as ordered. We will also m odify his insulin regimen and increase the premixed dose regimen with Humulin 70/30 to be given as 36 units a.c. breakfast and 26 units a.c. dinner to start today. We will also increase the basal insul in with Levemir to be given as 16 units subQ at bedtime daily to start tonight. We will continue the low-dose correction scale using regular insulin as ordered. We will also obtain serial chemistries and supplement accordingly as needed. We will follow. Gaby Saavedra MD cc: [id number] TT: 01/28/2017 19:04:42 Confirmation # [id number] Dictation # [id number] kristy
[2017-01-28] MEDS ORDERED: Insulin Detemir 100 units/ml Vial (Levemir) SC SCH (22:00)
[2017-01-29] MEDS: Insulin Reg-LOW-Coverage SC SCH ×4 (02:47→16:54)
[2017-01-29] MEDS: Morphine 2 mg/ml ISec IVP PRN ×2 (05:47→10:13)
[2017-01-29] MEDS ORDERED: Insulin Human NPH/Reg 70/30 Vial(3 ml) SC SCH (07:30)
[2017-01-29 07:34] LABS: ADD MANUAL DIFF? NO
[2017-01-29] MEDS: Sodium Chloride 0.45% 1,000 ML IV SCH (07:42)
[2017-01-29 07:45] LABS: BASO # 0.05 K/mm3 (0.0-2.0); BASO % 1.6 % (0.0-3.0); EOS # 0.1 (0.0-0.7); EOS % 4.4 % (1.5-5.0); GRAN # 1.47 (1.4-6.5); GRAN % 45.7 % (50.0-68.0); HEMATOCRIT 34.2 % (42.0-52.0); LYMPH # 1.3 (1.2-3.4); LYMPH % 40.2 % (22.0-35.0); MEAN CELL VOLUME 74.8 fL (80.0-105.0); MEAN CORPUSCULAR HEMOGLOBIN 25.8 pg (25.0-35.0); MEAN CORPUSCULAR HGB CONC 34.5 g/dl (31.0-37.0); MONO # 0.3 (0.1-0.6); MONO % 8.1 % (1.0-6.0); PLATELET COUNT 122 10^3/uL (120.0-450.0); RED CELL DISTRIBUTION WIDTH 15.4 % (11.5-14.5); WHITE BLOOD COUNT 3.2 10^3/ul (4.5-11.0)
[2017-01-29 07:56] VITALS: RESP 16
[2017-01-29 08:00] LABS: BLOOD UREA NITROGEN 4 mg/dL (7-21); CARBON DIOXIDE 27 mmol/L (21-33); CHLORIDE 102 mmol/L (98-107); GFR AFRICAN-AMERICAN > 60; GLUCOSE,RANDOM 207 mg/dL (70-110); POTASSIUM 3.7 mmol/L (3.6-5.0); SODIUM 137 mmol/L (132-148)
[2017-01-29] MEDS: POLYETHYLENE GLYCOL 3350 17 GM/Dose PACKET PO SCH (10:12)
[2017-01-29] MEDS: Omega-3-Acid Ethyl Esters 1 GM Cap PO SCH ×2 (10:12→17:08)
[2017-01-29] MEDS: Amylase/Lipase/Protease 5,000 U ECC PO SCH ×3 (10:24→17:16)
--- NOTE | 2017-01-29 10:54 | CP.PCM.PN ---
Subjective - Date & Time of Evaluation Date of Evaluation: 01/29/17 Time of Evaluation: 10:52 - Subjective Subjective: RFV: Pancreatitis S: still c/o ruq pain. no vomiting. tolerating diet. no fever. Objective - Vital Signs/Intake and Output Vital Signs (last 24 hours): Temp Pulse Resp BP Pulse Ox 97.5 F L 56 L 16 127/82 99 01/29/17 07:55 01/29/17 07:55 01/29/17 07:55 01/29/17 07:55 01/29/17 07:55 Intake and Output: 01/29/17 01/29/17 06:59 18:59 Intake Total 960 Balance 960 - Medications Medications: Current Medications Amylase (Pancrease 29927 U-5000 U-44569 U) 25,000 u PO TID [facility] Last Admin: 01/29/17 10:24 Dose: 25,000 u Atorvastatin Calcium (Lipitor) 20 mg PO DIN [facility] Last Admin: 01/28/17 17:26 Dose: 20 mg Gemfibrozil (Lopid) 600 mg PO BID [facility] Last Admin: 01/29/17 10:12 Dose: 600 mg Heparin Sodium (Porcine) (Heparin) 5,000 units SC Q8 [facility] PRN Reason: Protocol Last Admin: 01/29/17 05:30 Dose: 5,000 units Sodium Chloride (Sodium Chloride 0.45%) 1,000 mls @ 100 mls/hr IV .Q10H [facility] Last Admin: 01/29/17 07:42 Dose: 100 mls/hr Insulin Detemir (Levemir) 16 unit SC HS [facility] Last Admin: 01/28/17 21:00 Dose: 16 unit Insulin Human Regular (Humulin R Low) 0 units SC ACHS [facility] PRN Reason: Protocol Last Admin: 01/29/17 07:45 Dose: 3 units Morphine Sulfate (Morphine) 1 mg IVP Q4H PRN PRN Reason: Pain, severe (8-10) Last Admin: 01/29/17 10:13 Dose: 1 mg [id number] Ethyl Esters (Lovaza) 2 gm PO BID [facility] Last Admin: 01/29/17 10:12 Dose: 2 gm Ondansetron HCl (Zofran Inj) 4 mg IVP Q4H PRN PRN Reason: Nausea/Vomiting Last Admin: 01/28/17 19:02 Dose: 4 mg Oxycodone HCl (Oxycodone Immediate Release Tab) 5 mg PO Q6H PRN PRN Reason: Pain, moderate (4-7) Pantoprazole Sodium (Protonix Inj) 40 mg IVP DAILY [facility] Last Admin: 01/29/17 10:14 Dose: 40 mg Polyethylene Glycol (Miralax) 17 gm PO DAILY [facility] Last Admin: 01/29/17 10:12 Dose: 17 gm - Labs Labs: 01/29/17 07:00 01/29/17 07:00 PT 11.8 Seconds (9.9-11.8) 01/25/17 09:25 INR 1.08 (0.93-1.08) 01/25/17 09:25 APTT 38.7 Seconds (23.7-30.8) H 01/25/17 09:25 - Constitutional Appears: No Acute Distress, Chronically Ill - Head Exam Head Exam: ATRAUMATIC, NORMOCEPHALIC - Eye Exam Eye Exam: Normal appearance. absent: Scleral icterus - ENT Exam ENT Exam: Mucous Membranes Moist - Respiratory Exam Respiratory Exam: Clear to Ausculation Bilateral, NORMAL BREATHING PATTERN. absent: Respiratory Distress - Cardiovascular Exam Cardiovascular Exam: REGULAR RHYTHM, +S1, +S2 - GI/Abdominal Exam GI & Abdominal Exam: Soft. absent: Distended, Guarding, Tenderness - Neurological Exam Neurological Exam: Alert, Oriented x3 - Skin Skin Exam: Dry, Warm Assessment and Plan - Assessment and Plan (Free Text) Assessment: 41 year old male with h/o HCV, Hypertriglyceridemia, chronic pancreatitis with pseudocyst a/w abdominal pain. 1. Chronic pancreatitis 2. Hepatitis C 3. Pseudocyst 4. Hypertriglyceridemia Plan: - Low fat Diet as tolerated - Lipid management as per endocrine team - Pain control, IVF hydration - [place] [address] units of lipase per meal along with protonix 40 mg daily - no indication for intervention/EUS at this time - Following hospital discharge, patient to follow up with primary GI Dr. Salomon at [facility] for ongoing management
--- NOTE | 2017-01-29 12:42 | CP.PCM.DIS ---
<Catrina Vazquez - Last Filed: 01/30/17 08:56> Provider - Provider Date of Admission: 01/25/17 11:20 Attending physician: Mohit Lackey MD Primary care physician: Caryl Hightower MD Consults: Drs. Colvin, Quentin, Lili Time Spent in preparation of Discharge (in minutes): 35 Hospital Course - Lab Results Lab Results: Micro Results 01/26/17 06:00 Urine,Clean Catch Urine Culture - Final No Growth (<1,000 CFU/ML) 01/25/17 13:30 Nose MRSA Culture (Admit) - Final MRSA NOT DETECTED Most Recent Lab Values WBC 3.2 10^3/ul (4.5-11.0) L 01/29/17 07:00 RBC 4.57 10^6/uL (3.5-6.1) 01/29/17 07:00 Hgb 11.8 gm/dL (14.0-18.0) L 01/29/17 07:00 Hct 34.2 % (42.0-52.0) L 01/29/17 07:00 MCV 74.8 fL (80.0-105.0) L 01/29/17 07:00 MCH 25.8 pg (25.0-35.0) 01/29/17 07:00 MCHC 34.5 g/dl (31.0-37.0) 01/29/17 07:00 RDW 15.4 % (11.5-14.5) H 01/29/17 07:00 Plt Count 122 10^3/uL (120.0-450.0) 01/29/17 07:00 MPV 10.9 fl (7.0-11.0) 01/28/17 06:54 Gran % 45.7 % (50.0-68.0) L 01/29/17 07:00 Lymph % (Auto) 40.2 % (22.0-35.0) H 01/29/17 07:00 Grant % (Auto) 8.1 % (1.0-6.0) H 01/29/17 07:00 Eos % (Auto) 4.4 % (1.5-5.0) 01/29/17 07:00 Baso % (Auto) 1.6 % (0.0-3.0) 01/29/17 07:00 Gran # 1.47 (1.4-6.5) 01/29/17 07:00 Lymph # 1.3 (1.2-3.4) 01/29/17 07:00 Grant # 0.3 (0.1-0.6) 01/29/17 07:00 Eos # 0.1 (0.0-0.7) 01/29/17 07:00 Baso # 0.05 K/mm3 (0.0-2.0) 01/29/17 07:00 PT 11.8 Seconds (9.9-11.8) 01/25/17 09:25 INR 1.08 (0.93-1.08) 01/25/17 09:25 APTT 38.7 Seconds (23.7-30.8) H 01/25/17 09:25 Sodium 137 mmol/L (132-148) 01/29/17 07:00 Potassium 3.7 mmol/L (3.6-5.0) 01/29/17 07:00 Chloride 102 mmol/L (98-107) 01/29/17 07:00 Carbon Dioxide 27 mmol/L (21-33) 01/29/17 07:00 Anion Gap 12 (10-20) 01/29/17 07:00 BUN 4 mg/dL (7-21) L 01/29/17 07:00 Creatinine 0.6 mg/dL (0.5-1.4) 01/29/17 07:00 Est GFR ( Amer) > 60 01/29/17 07:00 Est GFR (Non-Af Amer) > 60 01/29/17 07:00 POC Glucose (mg/dL) 128 mg/dL (65-110) H 01/26/17 16:27 Random Glucose 207 mg/dL (70-110) H 01/29/17 07:00 Hemoglobin A1c 13.1 % (4.2-6.5) H 01/26/17 03:08 Calcium 9.0 mg/dL (8.4-10.5) 01/29/17 07:00 Magnesium 1.7 mg/dL (1.7-2.2) 01/26/17 06:00 Total Bilirubin 0.6 mg/dL (0.2-1.3) 01/28/17 06:54 AST 24 U/L (15-59) 01/28/17 06:54 ALT 45 U/L (7-56) 01/28/17 06:54 Alkaline Phosphatase 103 U/L (38-133) 01/28/17 06:54 Lactate Dehydrogenase 404 U/L (333-699) 01/26/17 03:08 Total Creatine Kinase 110 U/L (35-230) 01/26/17 03:08 Troponin I < 0.01 ng/mL 01/26/17 03:08 Total Protein 6.7 g/dL (5.8-8.3) 01/28/17 06:54 Albumin 3.3 g/dL (3.0-4.8) 01/28/17 06:54 Globulin 3.4 gm/dL 01/28/17 06:54 Albumin/Globulin Ratio 1.0 (1.1-1.8) L 01/28/17 06:54 Triglycerides 522 mg/dL (35-160) H 01/29/17 07:00 Cholesterol 151 mg/dL (130-200) 01/28/17 06:54 LDL Cholesterol Direct -8 mg/dL (0-129) L 01/28/17 06:54 HDL Cholesterol 15 mg/dL (29-60) L 01/28/17 06:54 Lipase 41 U/L (23-300) 01/27/17 07:00 Free T4 1.76 ng/dL (0.78-2.19) 01/26/17 06:00 Thyroxine (T4) 10.9 ug/dL (5.5-11.0) 01/26/17 06:00 TSH 3rd Generation 1.20 mIU/mL (0.46-4.68) 01/27/17 07:00 Urine Color Yellow (YELLOW) 01/26/17 06:20 Urine Appearance Sl cloudy (CLEAR) 01/26/17 06:20 Urine pH 6.0 (4.7-8.0) 01/26/17 06:20 Ur Specific [place] 1.025 (1.005-1.035) 01/26/17 06:20 Urine Protein Trace mg/dL (<30 mg/dL) H 01/26/17 06:20 Urine Glucose (UA) >=1000 mg/dL (NEGATIVE) 05/11/17 06:20 Urine Ketones >=80 mg/dL (NEGATIVE) 01/26/17 06:20 Urine Blood Negative (NEGATIVE) 01/26/17 06:20 Urine Nitrate Negative (NEGATIVE) 01/26/17 06:20 Urine Bilirubin Small (NEGATIVE) H 01/26/17 06:20 Urine Urobilinogen 0.2 E.U./dL (<1 E.U./dL) 01/26/17 06:20 Ur Leukocyte Esterase Negative Elba/uL (NEGATIVE) 01/26/17 06:20 Urine RBC 0 - 2 /hpf (0-2) 01/26/17 06:20 Urine WBC 1 - 3 /hpf (0-6) 01/26/17 06:20 Ur Epithelial Cells 1 - 3 /hpf (0-5) 01/26/17 06:20 Urine Bacteria Small (NEG) 01/26/17 06:20 HCV RNA (PCR) IUs/ml 137785 IU/mL (<15) H 01/26/17 03:08 HCV RNA PCR log IUs/ml 5.52 log IU/mL (<1.18) H 01/26/17 03:08 - Hospital Course Hospital Course: 41 yo M w/PMHx of chronic pancreatitis, dyslipidemia, diabetes and hepatitis C who presented with chest/epigastric pain with nausea and vomiting secondary to pancreatitis. He was found to have elevated triglycerides >[address] findings showed stable small pancreatic pseudocyst and chronic pancreatitis. Admitted to critical care initially for Hypertriglycerdemia, and Intractable Abdominal Pain. Serial cardiac enzymes were negative and ACS was ruled out. He was started on insulin drip with iv fluids, analgesics, and antiemetics with improvement of symptoms and triglyceride levels. He was administered lopid, statin, pancrease and lovaza. He reported his pain improving throughout course of admission and he tolerated advancement of diet, transferred to med/surg. Tapered his narcotics and decreased his iv fluids. His triglycerides decreased throughout course of admission, and d/c with triglycerides of 522. D/C in good condition w/ the following instructions: You are discharged home. Please eat a low-fat diet as you were advised. Please follow up with Primary GI: Dr. Salomon at [facility] for hepatitis C. Please follow-up with your primary care of choice within one week of discharge, especially for refills of diabetes medications and any related supplies. Please resume home medications except your humulin insulin. The following are your new medications: pancrease [7000 U-5000 U-83487 U] 25,000 by mouth every meal, glucose test strips, gemfibrozil 600 mg by mouth twice daily, humulin 70/ 30 insulin 26 u subcutaneously before dinner, and 36 u subcutaneously before breakfast, 2 mg fish oil twice daily by mouth, and protonix 40 mg by mouth daily , atorvastatin 20mg by mouth at dinner, and Miralax powder for constipation, as needed, and percocet 5/325 mg by mouth every 6 hours as needed. Please return to emergency department for worsening of symptoms. Discharge Exam - Head Exam Head Exam: ATRAUMATIC, NORMOCEPHALIC - Eye Exam Eye Exam: EOMI, Normal appearance Pupil Exam: NORMAL ACCOMODATION, PERRL - Respiratory Exam Respiratory Exam: NORMAL BREATHING PATTERN, UNREMARKABLE - Cardiovascular Exam Cardiovascular Exam: +S1, +S2. absent: Tachycardia - GI/Abdominal Exam GI & Abdominal Exam: Soft, Tenderness (slight RUQ tenderness) - Exam External exam: absent: Ecchymosis, Erythema - Extremities Exam Extremities exam: normal capillary refill, pedal pulses present - Neurological Exam Neurological exam: Alert - Psychiatric Exam Psychiatric exam: Normal Affect, Normal Mood - Skin Skin Exam: Intact, Normal Color Discharge Plan - Discharge Medications Prescriptions: Amylase/Lipase/Protease [Pancrease 47066 U-5000 U-42472 U] 25,000 u PO TID #210 ecc Atorvastatin [Lipitor] 20 mg PO DIN #14 tab Blood Sugar Diagnostic [Blood Glucose Test Strip] 1 each [facility] #60 strip Gemfibrozil 600 mg PO BID #14 Insulin Human NPH/Reg [humulin 70/30 70 U/Ml-30 U/Ml 10 Ml] 26 units SC ACD #4 ml Insulin Human NPH/Reg [humulin 70/30 70 U/Ml-30 U/Ml 10 Ml] 36 units SC ACB #5 ml Hviil-0-Ofrb Ethyl Esters 1 GM [Lovaza] 2 gm PO BID #56 sgl Pantoprazole [Protonix] 40 mg PO DAILY #14 ect Polyethylene Glycol 3350 [Miralax] 17 gm PO DAILY PRN #10 powd.pack PRN Reason: Constipation - Follow Up Plan Condition: GOOD Disposition: HOME/ ROUTINE Instructions: Pancreatitis (DC), Acute Abdominal Pain (DC), Acute Abdominal Pain (GEN) Additional Instructions: You are discharged home. Please eat a low-fat diet as you were advised. Please follow up with Primary GI: Dr. Salomon at [facility] for hepatitis C. Please follow-up with your primary care of choice within one week of discharge, especially for refills of diabetes medications and any related supplies. Please resume home medications except your humulin insulin. The following are your new medications: pancrease [7000 U-5000 U-83436 U] 25,000 by mouth every meal, glucose test strips, gemfibrozil 600 mg by mouth twice daily, humulin 70/ 30 insulin 26 u subcutaneously before dinner, and 36 u subcutaneously before breakfast, 2 mg fish oil twice daily by mouth, and protonix 40 mg by mouth daily , atorvastatin 20mg by mouth at dinner, and Miralax powder for constipation, as needed, and percocet 5/325 mg by mouth every 6 hours as needed Please return to emergency department for worsening of symptoms. Referrals: Alexandru Salomon MD [Non-Staff] - Caryl Hightower MD [Primary Care Provider] - <Mohit Lackey - Last Filed: 01/30/17 14:06> Provider - Provider Date of Admission: 01/25/17 11:20 Attending physician: Mohit Lackey MD Primary care physician: Caryl Hightower MD Hospital Course - Lab Results Lab Results: Micro Results 01/26/17 06:00 Urine,Clean Catch Urine Culture - Final No Growth (<1,000 CFU/ML) 01/25/17 13:30 Nose MRSA Culture (Admit) - Final MRSA NOT DETECTED Most Recent Lab Values WBC 3.2 10^3/ul (4.5-11.0) L 01/29/17 07:00 RBC 4.57 10^6/uL (3.5-6.1) 01/29/17 07:00 Hgb 11.8 gm/dL (14.0-18.0) L 01/29/17 07:00 Hct 34.2 % (42.0-52.0) L 01/29/17 07:00 MCV 74.8 fL (80.0-105.0) L 01/29/17 07:00 MCH 25.8 pg (25.0-35.0) 01/29/17 07:00 MCHC 34.5 g/dl (31.0-37.0) 01/29/17 07:00 RDW 15.4 % (11.5-14.5) H 01/29/17 07:00 Plt Count 122 10^3/uL (120.0-450.0) 01/29/17 07:00 MPV 10.9 fl (7.0-11.0) 01/28/17 06:54 Gran % 45.7 % (50.0-68.0) L 01/29/17 07:00 Lymph % (Auto) 40.2 % (22.0-35.0) H 01/29/17 07:00 Grant % (Auto) 8.1 % (1.0-6.0) H 01/29/17 07:00 Eos % (Auto) 4.4 % (1.5-5.0) 01/29/17 07:00 Baso % (Auto) 1.6 % (0.0-3.0) 01/29/17 07:00 Gran # 1.47 (1.4-6.5) 01/29/17 07:00 Lymph # 1.3 (1.2-3.4) 01/29/17 07:00 Grant # 0.3 (0.1-0.6) 01/29/17 07:00 Eos # 0.1 (0.0-0.7) 01/29/17 07:00 Baso # 0.05 K/mm3 (0.0-2.0) 01/29/17 07:00 PT 11.8 Seconds (9.9-11.8) 01/25/17 09:25 INR 1.08 (0.93-1.08) 01/25/17 09:25 APTT 38.7 Seconds (23.7-30.8) H 01/25/17 09:25 Sodium 137 mmol/L (132-148) 01/29/17 07:00 Potassium 3.7 mmol/L (3.6-5.0) 01/29/17 07:00 Chloride 102 mmol/L (98-107) 01/29/17 07:00 Carbon Dioxide 27 mmol/L (21-33) 01/29/17 07:00 Anion Gap 12 (10-20) 01/29/17 07:00 BUN 4 mg/dL (7-21) L 01/29/17 07:00 Creatinine 0.6 mg/dL (0.5-1.4) 01/29/17 07:00 Est GFR ( Amer) > 60 01/29/17 07:00 Est GFR (Non-Af Amer) > 60 01/29/17 07:00 POC Glucose (mg/dL) 128 mg/dL (65-110) H 01/26/17 16:27 Random Glucose 207 mg/dL (70-110) H 01/29/17 07:00 Hemoglobin A1c 13.1 % (4.2-6.5) H 01/26/17 03:08 Calcium 9.0 mg/dL (8.4-10.5) 01/29/17 07:00 Magnesium 1.7 mg/dL (1.7-2.2) 01/26/17 06:00 Total Bilirubin 0.6 mg/dL (0.2-1.3) 01/28/17 06:54 AST 24 U/L (15-59) 01/28/17 06:54 ALT 45 U/L (7-56) 01/28/17 06:54 Alkaline Phosphatase 103 U/L (38-133) 01/28/17 06:54 Lactate Dehydrogenase 404 U/L (333-699) 01/26/17 03:08 Total Creatine Kinase 110 U/L (35-230) 01/26/17 03:08 Troponin I < 0.01 ng/mL 01/26/17 03:08 Total Protein 6.7 g/dL (5.8-8.3) 01/28/17 06:54 Albumin 3.3 g/dL (3.0-4.8) 01/28/17 06:54 Globulin 3.4 gm/dL 01/28/17 06:54 Albumin/Globulin Ratio 1.0 (1.1-1.8) L 01/28/17 06:54 Triglycerides 522 mg/dL (35-160) H 01/29/17 07:00 Cholesterol 151 mg/dL (130-200) 01/28/17 06:54 LDL Cholesterol Direct -8 mg/dL (0-129) L 01/28/17 06:54 HDL Cholesterol 15 mg/dL (29-60) L 01/28/17 06:54 Lipase 41 U/L (23-300) 01/27/17 07:00 Free T4 1.76 ng/dL (0.78-2.19) 01/26/17 06:00 Thyroxine (T4) 10.9 ug/dL (5.5-11.0) 01/26/17 06:00 TSH 3rd Generation 1.20 mIU/mL (0.46-4.68) 01/27/17 07:00 Urine Color Yellow (YELLOW) 01/26/17 06:20 Urine Appearance Sl cloudy (CLEAR) 01/26/17 06:20 Urine pH 6.0 (4.7-8.0) 01/26/17 06:20 Ur Specific [place] 1.025 (1.005-1.035) 01/26/17 06:20 Urine Protein Trace mg/dL (<30 mg/dL) H 01/26/17 06:20 Urine Glucose (UA) >=1000 mg/dL (NEGATIVE) 01/26/17 06:20 Urine Ketones >=80 mg/dL (NEGATIVE) 01/26/17 06:20 Urine Blood Negative (NEGATIVE) 01/26/17 06:20 Urine Nitrate Negative (NEGATIVE) 01/26/17 06:20 Urine Bilirubin Small (NEGATIVE) H 01/26/17 06:20 Urine Urobilinogen 0.2 E.U./dL (<1 E.U./dL) 01/26/17 06:20 Ur Leukocyte Esterase Negative Elba/uL (NEGATIVE) 01/26/17 06:20 Urine RBC 0 - 2 /hpf (0-2) 01/26/17 06:20 Urine WBC 1 - 3 /hpf (0-6) 01/26/17 06:20 Ur Epithelial Cells 1 - 3 /hpf (0-5) 01/26/17 06:20 Urine Bacteria Small (NEG) 01/26/17 06:20 HCV RNA (PCR) IUs/ml 085541 IU/mL (<15) H 01/26/17 03:08 HCV RNA PCR log IUs/ml 5.52 log IU/mL (<1.18) H 01/26/17 03:08 Attending/Attestation - Attestation I have personally seen and examined this patient.: Yes I have fully participated in the care of the patient.: Yes I have reviewed all pertinent clinical information, including history, physical exam and plan: Yes Notes (Text): 01/29/17 41 year old male with past medical history of chronic pancreatitis, dyslipidemia , diabetes and hepatitis C who presented with epigastric pain with nausea and vomiting secondary to pancreatitis. He was found to have elevated triglycerides >[address] findings showed stable small pancreatic pseudocyst and chronic pancreatitis. He was started on insulin drip with iv fluids, analgesics, and antiemetics with improvement of symptoms and triglyceride levels. He is on lopid, statin and lovaza. Triglycerides has improved. His pain has also improved and he is tolerating his diet. He is discharged home to follow up with his pmd. Follow up with [facility] GI/Hepatitis clinic. Mohit Lackey MD Hospitalist.
--- NOTE | 2017-01-29 12:45 | PN ---
DATE: 01/29/2017 ROOM: 560 This is a 41-year-old male with recent uncontrolled type 2 insulin-requiring diabetes, now being foll owed closely for metabolic management. He also has recent exacerbation of acute pancreatitis with un derlying marked dyslipidemia and was given intensive insulin therapy for control of the aforementione d and has since then improved clinically and metabolically as noted thereof. His latest triglycerides have come down to 522 with a cholesterol of 151 as noted. The latest chemis try includes a BUN of 4, sodium 137, potassium 3.7, chloride 102, CO2 27, glucose 207 and creatinine 0.6. So at this time, we will continue the same basal and premixed insulin regimen as given with Humulin 7 0/30 given as 36 units before breakfast and 26 units before dinner with Levemir given as 16 units whi ch will be titrated to 20 units subQ at bedtime daily as ordered. We will follow and advise wanda gly. Gaby Saavedra MD cc: [id number] TT: 01/29/2017 12:44:55 Confirmation # [id number] Dictation # [id number] en
[2017-01-29 16:09] VITALS: BP 112/76; PULSE 62; TEMP 97.9
[2017-01-29] MEDS: Insulin Human NPH/Reg 70/30 Vial(3 ml) SC SCH (16:54)
[2017-01-29] MEDS ORDERED: Insulin Detemir 100 units/ml Vial (Levemir) SC SCH (22:00)
[2017-02-01 07:56] LABS: HEPATITIS C VIRAL RNA QUAL Detected
== END 2017-01-29 18:34 | disposition home or self-care (01) | DRG 557 ==
LOC: ED 08:01 → ERH 11:20 → CCU 13:32 → 5RNO 01-26 19:14
PROVIDERS: ADMIT Internal Medicine; ATTEND Internal Medicine
DX: K86.1 Other chronic pancreatitis (principal); K86.3 Pseudocyst of pancreas; E78.1 Pure hyperglyceridemia; E11.65 Type 2 diabetes mellitus with hyperglycemia; I10 Essential (primary) hypertension; E87.5 Hyperkalemia; B18.2 Chronic viral hepatitis C; E78.5 Hyperlipidemia, unspecified; K59.09 Other constipation; M19.90 Unspecified osteoarthritis, unspecified site; F17.210 Nicotine dependence, cigarettes, uncomplicated; Z79.4 Long term (current) use of insulin; Z90.49 Acquired absence of other specified parts of digestive tract

== ENCOUNTER 2017-02-17 15:35 | Inpatient (IN) | payer OTHER ==
[2017-02-17] MEDS ORDERED: Sodium Chloride 0.9% 1,000 ML IV STA (16:01)
--- NOTE | 2017-02-17 16:03 | ED PDOC ---
Arrival/HPI - General Chief Complaint: Abdominal Pain Time Seen by Provider: 02/17/17 15:49 Historian: Patient - History of Present Illness Narrative History of Present Illness (Text): 02/17/17 16:02 42 year old male whose past medical history includes pancreatitis presents to the emergency department with diffuse abdominal pain for the past two weeks, nausea and non-bloody non-bilious vomiting since 06:00 today. Patient states this feels like his previous pancreatitis symptoms. No other complaints. Time/Duration: < week Symptom Onset: Gradual Symptom Course: Unchanged Modifying Factors (Text): None Associated Symptoms (Text): None Past Medical History - Provider Review Nursing Documentation Reviewed: Yes - Infectious Disease Hx of Infectious Diseases: None - Tetanus Immunization Tetanus Immunization: Unknown - Cardiac Hx Cardiac Disorders: Yes Hx Cardiac Arrhythmia: Yes (bradycardia) Hx Hypertension: Yes - Pulmonary Hx Respiratory Disorders: No - Neurological Hx Neurological Disorder: No - HEENT Hx HEENT Disorder: Yes (blurry vision) - Renal Hx Renal Disorder: Yes Hx Kidney Stones: Yes - Endocrine/Metabolic Hx Endocrine Disorders: Yes Hx Diabetes Mellitus Type 1: Yes - Hematological/Oncological Hx Blood Disorders: Yes Hx Hepatitis C: Yes - Integumentary Hx Dermatological Disorder: No - Musculoskeletal/Rheumatological Hx Falls: Yes (past) - Gastrointestinal Hx Gastrointestinal Disorders: Yes Hx Gastroesophageal Reflux: Yes Hx Pancreatitis: Yes - Genitourinary/Gynecological Hx Genitourinary Disorders: Yes Hx Urinary Tract Infection: Yes - Psychiatric Hx Psychophysiologic Disorder: No Hx Substance Use: No - Surgical History Hx Appendectomy: Yes Hx Cholecystectomy: Yes - Anesthesia Hx Anesthesia: Yes - Suicidal Assessment Feels Threatened In Home Enviroment: No Family/Social History - Physician Review Nursing Documentation Reviewed: Yes Family/Social History: Unknown Family HX Smoking Status: Light Smoker < 10 Cigarettes Daily Hx Alcohol Use: No Hx Substance Use: No Hx Substance Use Treatment: No Allergies/Home Meds Allergies/Adverse Reactions: Allergies dy Allergy (Mild, Uncoded 02/17/17 15:38) ITCHING hair color dye Allergy (Uncoded 02/17/17 15:38) RASH Home Medications: Home Meds Medication Instructions Recorded Confirmed Colesevelam HCl [Welchol] 625 mg PO BID 01/25/17 02/17/17 Gabapentin [Neurontin] 1 cap PO DAILY 01/25/17 02/17/17 Oxycodone HCl/Acetaminophen 1 tab PO Q6 PRN 01/25/17 02/17/17 [Endocet 5-325 Tablet] Review of Systems - Physician Review All systems were reviewed & negative as marked: Yes Physical Exam - Physical Exam Narrative Physical Exam (Text): - Review of Systems Constitutional: Normal. absent: Fatigue, Weight Change, Fevers Eyes: Normal ENT: Normal Respiratory: Normal absent: SOB, Cough, Sputum Cardiovascular: Normal absent: Chest pain, Palpitations, Syncope Gastrointestinal: Abdominal pain, Nausea, Vomiting absent: Diarrhea Genitourinary: Normal. absent: Dysuria, Frequency, Hematuria Musculoskeletal: Normal. absent: Arthralgias, Back Pain, Neck Pain Skin: Normal Neurological: Normal absent: Focal Weakness Endocrine: Normal Hemo/Lymphatic: Normal Psychiatric: Normal - Physical exam Patient appears age appropriate, speaking full sentences without difficulty - Systems Exam Head: Present: Atraumatic, Normocephalic Pupils: Present: PERRL Extraocular Muscles: Present: EOMI Conjunctiva: Present: Normal Mouth: Present: Moist Mucous Membranes Neck: Present: Normal Range of Motion. No: MIDLINE TENDERNESS, Paraspinal Tenderness Respiratory/Chest: Present: Clear to Auscultation, Good Air Exchange. No: Respiratory Distress, Accessory Muscle Use, Tachypneic Cardiovascular: Present: Regular Rate and Rhythm, Normal S1, S2, Peripheral Pulses Present. No: Murmurs Abdomen: Present: Normal Bowel Sounds, Diffuse tenderness to palpation No: Peritoneal Signs, Rebound, Guarding, Distention Back: Present: Normal Inspection. No: Midline Tenderness, Paraspinal Tenderness Upper Extremity: Present: Normal Inspection. No: Cyanosis, Edema Lower Extremity: Present: Normal Inspection. No: Edema Neurological: Present: GCS=15, Speech Normal, cranial nerves II through XII fully intact with no cerebellar abnormality, neuro-sensory fully intact. No focal neurological deficits. Skin: Present: Warm, Dry, Normal Color. No: Rashes Lymphatic: Present: OX3, NI, NC Psychiatric: Present: Alert, Oriented x 3, Normal Insight, Normal Concentration Vital Signs Reviewed: Yes Vital Signs Temp Pulse Resp BP Pulse Ox 02/17/17 18:27 56 L 18 109/62 98 02/17/17 17:30 58 L 18 110/67 100 02/17/17 15:40 98.0 F 102 H 17 107/72 97 Temperature: Afebrile Blood Pressure: Normal Pulse: Tachycardic Respiratory Rate: Normal Appearance: Positive for: Well-Appearing, Non-Toxic, Comfortable Pain Distress: Mild Mental Status: Positive for: Alert and Oriented X 3 Medical Decision Making ED Course and Treatment: Impression: 42 year old male whose past medical history includes pancreatitis presents to the emergency department with diffuse abdominal pain for the past two weeks, nausea and non-bloody non-bilious vomiting since 06:00 today. On physical exam, patient has diffuse abdominal tenderness to palpation. Differential Diagnosis include but are not limited to: Pancreatitis Plan: -- EKG -- Morphine, Zofran -- Labs -- Reassess and disposition Prior Visits: Notes and results from previous visits were reviewed. Patient admitted on with diagnosis of Patient has a history of pancreatitis, dyslipidemia, diabetes, and heaptitis C. Patient also evaluated for chest pain and had negative cardiac enzymes. Patient's echocardiogram reviewed from 01/04/17 which showed normal LV thickness and function. Progress Notes: 02/17/17 17:33 Patient's EKG shows normal sinus, 70 bpm, no ST segment elevations. Q waves in inferior leads. Interpreted by me. Chest xray interpreted by ED physician shows no pneumothorax, no cardiomegaly, no infiltrates 02/17/17 18:36 On reevaluation, patient is still in pain. More pain medications will be ordered Hospitalist paged multiple times for admission. 02/17/17 19:[address] Guzman, agrees with med/surg admission resident aware pt aware of and agrees with plan - Lab Interpretations Lab Results: 02/17/17 16:30 02/17/17 16:50 Lab Results 02/17/17 16:50: Sodium 135, Potassium 4.3, Chloride 98, Carbon Dioxide 23, Anion Gap 18, BUN 12, Creatinine 0.6, Est GFR ( Amer) > 60, Est GFR (Non- Af Amer) > 60, Random Glucose 284 H, Calcium 9.2, Total Bilirubin 1.2, AST 27, ALT 34, Alkaline Phosphatase 108, Lactate Dehydrogenase 571, Total Creatine Kinase 168, Troponin I < 0.01, Total Protein 8.4 H, Albumin 4.4, Globulin 4.0, Albumin/Globulin Ratio 1.1, Triglycerides 1751 H, Cholesterol 174, Lipase 75 02/17/17 16:30: WBC 7.2 D, RBC 5.33, Hgb 15.7, Hct 39.3 L, MCV 73.7 L, MCH 29.5 , MCHC 39.9 H, RDW 15.8 H, Plt Count 256, MPV 11.9 H, Gran % 64.1, Lymph % (Auto ) 16.9 L, Person % (Auto) 17.5 H, Eos % (Auto) 1.1 L, Baso % (Auto) 0.4, Gran # 4.64, Lymph # 1.2, Person # 1.3 H, Eos # 0.1, Baso # 0.03 - RAD Interpretation Radiology Orders: 02/17/17 16:04 CHEST PORTABLE [RAD] Stat - Medication Orders Current Medication Orders: Discontinued Medications Sodium Chloride (Sodium Chloride 0.9%) 1,000 mls @ 1,000 mls/hr IV .Q1H STA Stop: 02/17/17 17:00 Last Admin: 02/17/17 16:34 Dose: 1,000 mls/hr Morphine Sulfate (Morphine) 6 mg IVP STAT STA Stop: 02/17/17 16:02 Last Admin: 02/17/17 16:34 Dose: 6 mg Re-Assess: VENECIA Pain Assessment Document 02/17/17 17:34 FRANCES (Rec: 02/17/17 18:26 FRANCES [id number]) Pain Reassessment Is this a pain reassessment? No Sleep Is patient sleeping during reassessment? No Presence of Pain Presence of Pain Yes Pain Scale Used Pain Scale Used Numeric Description Intensity of Pain at present 4 Morphine Sulfate (Morphine) 6 mg IVP STAT STA Stop: 02/17/17 18:37 Last Admin: 02/17/17 19:11 Dose: 6 mg Ondansetron HCl (Zofran Inj) 4 mg IVP STAT STA Stop: 02/17/17 16:02 Last Admin: 02/17/17 16:35 Dose: 4 mg - Scribe Statement The provider has reviewed the documentation as recorded by the Jeny May Provider Scribe Attestation: All medical record entries made by the Jeny were at my direction and personally dictated by me. I have reviewed the chart and agree that the record accurately reflects my personal performance of the history, physical exam, medical decision making, and the department course for this patient. I have also personally directed, reviewed, and agree with the discharge instructions and disposition. Disposition/Present on Arrival - Present on Arrival Any Indicators Present on Arrival: No History of DVT/PE: No History of Uncontrolled Diabetes: Yes Urinary Catheter: No History of Decub. Ulcer: No History Surgical Site Infection Following: None - Disposition Have Diagnosis and Disposition been Completed?: Yes Diagnosis: Intractable abdominal pain Disposition: HOSPITALIZED Disposition Time: 19:57 Patient Plan: Admission Condition: FAIR Referrals: Caryl Hightower MD [Primary Care Provider] - Follow up with primary
--- NOTE | 2017-02-17 16:23 | RAD ---
HISTORY: cough COMPARISON: 12/30/2016 FINDINGS: LUNGS: The lungs are well inflated and clear. PLEURA: No significant pleural effusion identified, no pneumothorax apparent. CARDIOVASCULAR: Normal. OSSEOUS STRUCTURES: No significant abnormalities. VISUALIZED UPPER ABDOMEN: Normal. OTHER FINDINGS: None. IMPRESSION: No active pulmonary disease.
[2017-02-17 16:50] LABS: ADD MANUAL DIFF? NO
[2017-02-17 16:54] LABS: BASO # 0.03 K/mm3 (0.0-2.0); BASO % 0.4 % (0.0-3.0); EOS # 0.1 (0.0-0.7); EOS % 1.1 % (1.5-5.0); GRAN # 4.64 (1.4-6.5); GRAN % 64.1 % (50.0-68.0); HEMATOCRIT 39.3 % (42.0-52.0); LYMPH # 1.2 (1.2-3.4); LYMPH % 16.9 % (22.0-35.0); MEAN CELL VOLUME 73.7 fL (80.0-105.0); MEAN CORPUSCULAR HEMOGLOBIN 29.5 pg (25.0-35.0); MEAN CORPUSCULAR HGB CONC 39.9 g/dl (31.0-37.0); MEAN PLATELET VOLUME 11.9 fl (7.0-11.0); MONO # 1.3 (0.1-0.6); MONO % 17.5 % (1.0-6.0); PLATELET COUNT 256 10^3/uL (120.0-450.0); RED CELL DISTRIBUTION WIDTH 15.8 % (11.5-14.5); WHITE BLOOD COUNT 7.2 10^3/ul (4.5-11.0)
[2017-02-17 17:07] LABS: ALB/GLOB RATIO 1.1 (1.1-1.8); ALKALINE PHOSPHATASE 108 U/L (38-133); ALT/SGPT 34 U/L (7-56); AST/SGOT 27 U/L (15-59); BILIRUBIN,TOTAL 1.2 mg/dL (0.2-1.3); BLOOD UREA NITROGEN 12 mg/dL (7-21); CALCIUM 9.2 mg/dL (8.4-10.5); CARBON DIOXIDE 23 mmol/L (21-33); CHLORIDE 98 mmol/L (98-107); CHOLESTEROL 174 mg/dL (130-200); GFR AFRICAN-AMERICAN > 60; GLUCOSE,RANDOM 284 mg/dL (70-110); LIPASE 75 U/L (23-300); POTASSIUM 4.3 mmol/L (3.6-5.0); SODIUM 135 mmol/L (132-148); TOTAL PROTEIN 8.4 g/dL (5.8-8.3)
[2017-02-17 17:32] LABS: TROPONIN I < 0.01 ng/mL
--- NOTE | 2017-02-17 18:47 | CARD ---
APPROVED REPORT EKG Measurement Heart [id number] <Conclusion> Normal sinus rhythm with sinus arrhythmia Left axis deviation RSR' or QR pattern in V1 suggests right ventricular conduction delay Inferior infarct, age undetermined Anterior infarct, age undetermined Abnormal ECG
[2017-02-17] MEDS ORDERED: Oxycodone/Acetaminophen 5/325 mg Tab PO PRN (21:06)
[2017-02-17] MEDS ORDERED: POLYETHYLENE GLYCOL 3350 17 GM/Dose PACKET PO PRN (21:06)
[2017-02-17] MEDS: Sodium Chloride 0.9% 1,000 ML IV SCH (21:26)
[2017-02-17] MEDS: HYDROmorphone 0.5 mg/0.5 ml ISec IVP PRN (21:27)
[2017-02-17 22:53] VITALS: BMI 23.7
[2017-02-17] MEDS ORDERED: Pneumococcal 23-Valent Vaccine IM ONE (22:54)
--- NOTE | 2017-02-18 00:26 | CP.PCM.HP ---
<Pati Quinonez - Last Filed: 02/18/17 02:01> History of Present Illness - History of Present Illness History of Present Illness: PGY-1 h&p 41yo male with PMH of Hep C, Arthritis, Pancreatitis, DM, HLD, chronic back pain presented to ED with multiple episodes of emesis and abd pain. Patient states that the vomiting start early in the morning and he had multiple episodes of non bloody emesis despite not eating anything. He states that while at work her became dizzy adn had to sit down, that is when his coworker called EMS. He also reports abd pain that has been consistent with the pain due to his pancreatitis. He has had similar episodes of pain in the past. The pain is located diffusely throughout his abdomen radiating to his chest and back. He denies any diarrhea or constipation. He states that he has lost 15 lb since previous admission 1 month ago. He states that he recently started pancreatic enzymes which were helping with his digestion. He reports SOB secondary to his inability to take deep breath due to the pain. He denies headache, Fever, chills , dysuria. PMHx: Hepatitis C, Chronic Pancreatitis, DM, HLD, Arthritis, chronic back pain PSHx: Appendectomy, Cholecystectomy, Pancreatic Pseudocyst resection Family Hx: Denies Social Hx: Current 3 cigars daily, No ETOH, No illicit drugs Allergy: Hair Dye PMD: [place] Present on Admission - Present on Admission Any Indicators Present on Admission: No Review of Systems - Constitutional Constitutional: Weight Loss. absent: Chills, Fever, Headache - EENT Eyes: Blurred Vision Nose/Mouth/Throat: absent: Nasal Congestion, Nasal Discharge, Sore Throat - Cardiovascular Cardiovascular: Chest Pain, Dyspnea. absent: Palpitations - Respiratory Respiratory: Dyspnea. absent: Cough, Hemoptysis - Gastrointestinal Gastrointestinal: Abdominal Pain, Nausea, Vomiting. absent: Constipation, Diarrhea - Genitourinary Genitourinary: absent: Difficulty Urinating, Dysuria, Hematuria - Musculoskeletal Musculoskeletal: Numbness, Tingling. absent: Arthralgias, Muscle Weakness, Myalgias - Integumentary Integumentary: absent: Skin Ulcer, Swelling, Wounds - Neurological Neurological: Dizziness, Numbness, Tingling, Weakness. absent: Focal Weakness, Headaches - Hematologic/Lymphatic Hematologic: absent: Easy Bleeding, Easy Bruising Past Patient History - Infectious Disease Hx of Infectious Diseases: None - Tetanus Immunizations Tetanus Immunization: Unknown - Past Medical History & Family History Past Medical History?: Yes - Past Social History Smoking Status: Light Smoker < 10 Cigarettes Daily Alcohol: None Drugs: Denies - CARDIAC Hx Cardiac Disorders: Yes Hx Cardia Arrhythmia: Yes (bradycardia) Hx Hypercholesterolemia: Yes Hx Hypertension: Yes Hx Peripheral Vascular Disease: Yes - PULMONARY Hx Respiratory Disorders: Yes (chronic dry cough x 8 months since sx) - NEUROLOGICAL Hx Neurological Disorder: Yes Hx Dizziness: Yes (falls from dizziness since 2013) - HEENT Hx HEENT Problems: Yes (blurry vision) Other/Comment: deering due to earwax - RENAL Hx Chronic Kidney Disease: Yes Hx Kidney Stones: Yes - ENDOCRINE/METABOLIC Hx Endocrine Disorders: Yes Hx Diabetes Mellitus Type 1: Yes - HEMATOLOGICAL/ONCOLOGICAL Hx Blood Disorders: Yes Hx Hepatitis C: Yes - INTEGUMENTARY Hx Dermatological Problems: Yes Other/Comment: chronic itchy skin since "surgery 8 months ago" - MUSCULOSKELETAL/RHEUMATOLOGICAL Hx Falls: Yes ("dizzy and falling since 2013") - GASTROINTESTINAL Hx Gastrointestinal Disorders: Yes (chronic constipation) Hx Gall Bladder Disease: Yes (gallstones) Hx Gastroesophageal Reflux: Yes Hx Pancreatitis: Yes Hx Ulcer: Yes (peptic) - GENITOURINARY/GYNECOLOGICAL Hx Genitourinary Disorders: Yes (burning on urination "sometimes') Hx Urinary Tract Infection: Yes - PSYCHIATRIC Hx Substance Use: No - SURGICAL HISTORY Hx Appendectomy: Yes Hx Cholecystectomy: Yes Other/Comment: 2009 in [place] ap ruptured damagec pancreas, had sx on pancreas and gb sx at [facility] 8 months ago - ANESTHESIA Hx Anesthesia: Yes Meds Allergies/Adverse Reactions: Allergies Allergy/AdvReac Type Severity Reaction Status Date / Time dy Allergy Mild ITCHING Uncoded 02/17/17 15:38 hair color dye Allergy RASH Uncoded 02/17/17 15:38 Physical Exam - Constitutional Appears: No Acute Distress, Chronically Ill - Head Exam Head Exam: ATRAUMATIC, NORMOCEPHALIC - Eye Exam Eye Exam: EOMI, Normal appearance - ENT Exam ENT Exam: Mucous Membranes Dry - Respiratory Exam Respiratory Exam: Chest Wall Tenderness, Clear to Auscultation Bilateral, NORMAL BREATHING PATTERN. absent: Decreased Breath Sounds, Rhonchi, Wheezes, Respiratory Distress - Cardiovascular Exam Cardiovascular Exam: REGULAR RHYTHM, +S1, +S2. absent: Tachycardia, Diastolic murmur, Systolic Murmur - GI/Abdominal Exam GI & Abdominal Exam: Diminished Bowel Sounds, Normal Bowel Sounds, Soft, Tenderness. absent: Distended, Firm, Guarding - Extremities Exam Extremities exam: Positive for: normal inspection. Negative for: pedal edema, tenderness - Neurological Exam Neurological exam: Alert, Oriented x3 - Skin Skin Exam: Dry, Intact, Normal Color, Warm Results - Vital Signs Recent Vital Signs: Last Vital Signs Temp 98 F 02/17/17 22:43 Pulse 69 02/17/17 22:43 Resp 18 02/17/17 22:43 BP 121/71 02/17/17 22:43 Pulse Ox 100 02/17/17 21:14 - Labs Result Diagrams: 02/17/17 16:30 02/17/17 16:50 Assessment & Plan - Assessment and Plan (Free Text) Assessment: 41yo male with PMH of Hep C, Arthritis, Pancreatitis, DM, HLD, chronic back pain presented to ED with multiple episodes of emesis and abd pain secondary to pancreatitis. Plan: 1. Pancreatitis - triglycerides were elevated at 1751 - NPO - INF NS @150 - pain control Dilaudid 0.5 mg prn, percocet prn - cont pancreatic enzymes - cont home meds - GI consult Dr. Scott 2. HLD - cont home meds gemfibrozil, welchol and omega 3 3. DM - hold home insulin while NPO - ISSS- low - fingersticks ACHS ppx GI- protonix DVT- SCDs <Josey Guzman - Last Filed: 02/18/17 18:33> Results - Vital Signs Recent Vital Signs: Last Vital Signs Temp 97.5 F L 02/18/17 17:07 Pulse 57 L 02/18/17 17:07 Resp 18 02/18/17 17:07 BP 109/68 02/18/17 17:07 Pulse Ox 97 02/18/17 17:07 - Labs Result Diagrams: 02/18/17 07:15 02/18/17 07:15 Labs: Laboratory Results - last 24 hr 02/18/17 02/18/17 07:15 07:15 WBC 5.2 D RBC 4.45 Hgb 11.6 L Hct 33.0 L MCV 74.2 L MCH 26.1 MCHC 35.2 RDW 15.2 H Plt Count 164 MPV 11.2 H Gran % 52.4 Lymph % (Auto) 39.3 H Boundary % (Auto) 4.0 Eos % (Auto) 3.3 Baso % (Auto) 1.0 Gran # 2.74 Lymph # 2.1 Boundary # 0.2 Eos # 0.2 Baso # 0.05 Sodium 135 Potassium 4.4 Chloride 105 Carbon Dioxide 19 L Anion Gap 15 BUN 14 Creatinine 0.5 Est GFR ( Amer) > 60 Est GFR (Non-Af Amer) > 60 Random Glucose 244 H Calcium 8.4 Total Bilirubin 0.7 AST 24 ALT 33 Alkaline Phosphatase 78 Total Protein 6.2 Albumin 3.3 Globulin 2.9 Albumin/Globulin Ratio 1.1 Attending/Attestation - Attestation I have personally seen and examined this patient.: Yes I have fully participated in the care of the patient.: Yes I have reviewed all pertinent clinical information: Yes Notes (Text): 02/18/17 18:32 Patient was seen when he was in the ER in bed # 7. Agree with history , physical examination, assessment and plan.
[2017-02-18] MEDS ORDERED: HYDROmorphone 0.5 mg/0.5 ml ISec IM ONE (02:10)
[2017-02-18] MEDS ORDERED: Insulin Human NPH/Reg 70/30 Vial(3 ml) SC SCH ×2 (07:30→16:30)
[2017-02-18 07:36] LABS: ADD MANUAL DIFF? NO
[2017-02-18 08:19] LABS: ALB/GLOB RATIO 1.1 (1.1-1.8); ALKALINE PHOSPHATASE 78 U/L (38-133); ALT/SGPT 33 U/L (7-56); AST/SGOT 24 U/L (15-59); BILIRUBIN,TOTAL 0.7 mg/dL (0.2-1.3); BLOOD UREA NITROGEN 14 mg/dL (7-21); CALCIUM 8.4 mg/dL (8.4-10.5); CARBON DIOXIDE 19 mmol/L (21-33); CHLORIDE 105 mmol/L (98-107); GFR AFRICAN-AMERICAN > 60; GLUCOSE,RANDOM 244 mg/dL (70-110); POTASSIUM 4.4 mmol/L (3.6-5.0); SODIUM 135 mmol/L (132-148); TOTAL PROTEIN 6.2 g/dL (5.8-8.3)
[2017-02-18] MEDS: Insulin Lispro (humaLOG) LOW Coverage SC SCH ×4 (08:30→21:59)
[2017-02-18 08:46] LABS: BASO # 0.05 K/mm3 (0.0-2.0); EOS # 0.2 (0.0-0.7); EOS % 3.3 % (1.5-5.0); GRAN # 2.74 (1.4-6.5); GRAN % 52.4 % (50.0-68.0); LYMPH # 2.1 (1.2-3.4); LYMPH % 39.3 % (22.0-35.0); MEAN CELL VOLUME 74.2 fL (80.0-105.0); MEAN CORPUSCULAR HEMOGLOBIN 26.1 pg (25.0-35.0); MEAN CORPUSCULAR HGB CONC 35.2 g/dl (31.0-37.0); MEAN PLATELET VOLUME 11.2 fl (7.0-11.0); MONO # 0.2 (0.1-0.6); PLATELET COUNT 164 10^3/uL (120.0-450.0); RED CELL DISTRIBUTION WIDTH 15.2 % (11.5-14.5); WHITE BLOOD COUNT 5.2 10^3/ul (4.5-11.0)
[2017-02-18] MEDS: Omega-3-Acid Ethyl Esters 1 GM Cap PO SCH ×2 (09:27→17:57)
[2017-02-18] MEDS: Pantoprazole 40 mg EC Tab PO SCH (09:28)
[2017-02-18] MEDS ORDERED: Amylase/Lipase/Protease 5,000 U ECC PO SCH (10:00)
[2017-02-18] MEDS ORDERED: Colesevelam Hcl [Welchol] 625 MG PO SCH (10:00)
[2017-02-18] MEDS: HYDROmorphone 0.5 mg/0.5 ml ISec IVP PRN ×2 (10:03→20:44)
--- NOTE | 2017-02-18 10:20 | CON ---
DATE: 02/18/2017 I examined the patient this morning. He is a 42-year-old male, known to [employer] consultant, with past medical history of hep C, recurrent pancreatitis, diabetes , elevated lipids, status post pancreatic pseudocyst resection, cholecystectomy , appy, etc. The patient presented after several days of increasing abdominal pain with subsequent increased episodes of nausea and vomiting. The patient was unable to eat for several days. He related that his pancreatitis pain was much better controlled on pancreatic enzyme therapy which he is not taking appropriately. Note that this [employer] consultant had advised the patient to take pancreatic enzyme therapy on a consistent basis in order to decrease the frequency and intensity of admissions. The patient denied any hematemesis or rectal bleeding or severe episode of chest pain. PHYSICAL EXAMINATION: VITAL SIGNS: I reviewed this patient's vital signs. HEENT: Significant for dry mouth, dry tongue. LUNGS: Decreased breath sounds at bases. HEART: Irregular rhythm. ABDOMEN: Significant for being tender periumbilical area as well as the left upper quadrant. Lower quadrants noncontributory. I reviewed this patient's laboratory data which is significant for H and H of 15.7 and 39. White count 7.2. Glucose 284, protein 8.4 and triglyceride level of 1751. Note that the patient was advised on previous admissions to the [facility] to take his lipid control medication on a consistent basis. Otherwise, this will precipitate episodes of pancreatitis. The patient has been on gemfibrozil or something similar for triglyceride/cholesterol control. OVERALL ASSESSMENT: This is a 42-year-old male known to [employer] consultant with past medical history of recurrent pancreatitis, noncompliant will current medications on the outside, admitted with a flare of pancreatitis, probably secondary to hyperlipidemia and noncompliant intake of pancreatic enzyme therapy. I reviewed this patient's orders. The patient is currently on Welchol, Dilaudid , insulin, gemfibrozil, omega-3, Percocet, pancreatic enzymes, IV fluids. His fluid is currently at a rate of roughly 150. The patient is currently on n.p.o. diet. Note that, in review of the orders, I would suggest that at least for acute exacerbations of pancreatitis, the patient not be on Welchol and gemfibrozil as well as pancreatic enzymes. These can be deferred until after the acute episode has resolved. The patient is also fluid depleted as well. IV rate currently 150 mL an hour, could probably be slightly increased. I will order small volume of ice chips. Lucian Scott DO, PhD cc: [id number] TT: 02/18/2017 10:19:46 Confirmation # [id number] Dictation # [id number] kinga MTDJose R
[2017-02-18] MEDS: Sodium Chloride 0.9% 1,000 ML IV SCH (14:04)
[2017-02-19] MEDS: HYDROmorphone 0.5 mg/0.5 ml ISec IVP PRN ×3 (02:55→19:46)
[2017-02-19] MEDS: Sodium Chloride 0.9% 1,000 ML IV SCH ×2 (03:01→21:34)
[2017-02-19 07:10] LABS: ADD MANUAL DIFF? NO
[2017-02-19 07:15] LABS: BASO # 0.06 K/mm3 (0.0-2.0); BASO % 1.4 % (0.0-3.0); EOS # 0.2 (0.0-0.7); EOS % 3.4 % (1.5-5.0); GRAN # 2.27 (1.4-6.5); GRAN % 51.8 % (50.0-68.0); HEMATOCRIT 31.4 % (42.0-52.0); LYMPH # 1.7 (1.2-3.4); LYMPH % 38.6 % (22.0-35.0); MEAN CELL VOLUME 74.2 fL (80.0-105.0); MEAN CORPUSCULAR HEMOGLOBIN 25.3 pg (25.0-35.0); MEAN CORPUSCULAR HGB CONC 34.1 g/dl (31.0-37.0); MEAN PLATELET VOLUME 10.6 fl (7.0-11.0); MONO # 0.2 (0.1-0.6); MONO % 4.8 % (1.0-6.0); PLATELET COUNT 132 10^3/uL (120.0-450.0); RED CELL DISTRIBUTION WIDTH 15.5 % (11.5-14.5); WHITE BLOOD COUNT 4.4 10^3/ul (4.5-11.0)
[2017-02-19 07:33] LABS: ALKALINE PHOSPHATASE 62 U/L (38-133); ALT/SGPT 34 U/L (7-56); AST/SGOT 22 U/L (15-59); BILIRUBIN,TOTAL 0.6 mg/dL (0.2-1.3); BLOOD UREA NITROGEN 8 mg/dL (7-21); CALCIUM 8.1 mg/dL (8.4-10.5); CARBON DIOXIDE 22 mmol/L (21-33); CHLORIDE 105 mmol/L (98-107); GFR AFRICAN-AMERICAN > 60; GLUCOSE,RANDOM 147 mg/dL (70-110); POTASSIUM 3.6 mmol/L (3.6-5.0); SODIUM 135 mmol/L (132-148); TOTAL PROTEIN 6.1 g/dL (5.8-8.3)
--- NOTE | 2017-02-19 08:12 | PN ---
DATE: 02/19/2017 I examined the patient this morning. 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 Again, as indicated in my note previously, episode precipitated by multifactorial factors including noncompliance with pancreatic enzyme therapy as well as hypertriglyceridemia. Note that the current level of trigs is roughly 1600. This has been a recurring issue for him, prompting multiple admissions in the past. The patient is still taking very small volumes of ice chips and is still experiencing some degree of abdominal pain, which is diffuse. Mouth is still dry. Urine output he feels is appropriate. There is no shortness of breath or chest pain. Abdomen is decompressed somewhat. Pain is better controlled today relative to the day of admission. PHYSICAL EXAMINATION: VITAL SIGNS: I reviewed this patient's vital signs. HEENT: Significant for dry mouth, dry tongue. LUNGS: Decreased breath sounds basilar. HEART: Regular rhythm. ABDOMEN: Soft, tender diffuse, but less than yesterday. The belly is less distended. I reviewed this patient's laboratory data. OVERALL ASSESSMENT: A 42-year-old male admitted with exacerbation of pancreatitis. I discussed some issues with the orders as of yesterday. Note that the most important thing for the current management is IV fluid therapy, analgesics, PPI. Note that on review of orders, at least for the acute portion of his disease, Welchol, pancreatic enzyme therapy as well as gemfibrozil have been held, which is a good idea. These can be resumed if the acuteness of the current episode has resolved. The patient feels that the dose of analgesic is adequate at the current time and he feels that he is making progress. As indicated previously, the triglyceride level is roughly 1700. If this is not making progress on the current meds, one consideration might be evaluation by the metabolism group at [facility], specifically [facility], for possible new medications which may control his triglyceride level to a better extent. This would be a win-win situation for everybody in that this will probably decrease the frequency of his admissions due to hypertriglyceridemia. Also, suggested continued intake of pancreatic enzyme therapy on the outside as directed. The patient seems to be handling very small volumes of ice chips adequately. One might consider advancing his diet to small sips of clear liquid some time later today. Lucian Scott DO, PhD cc: [id number] TT: 02/19/2017 08:11:48 Confirmation # [id number] Dictation # [id number] en TERI
[2017-02-19] MEDS: Insulin Lispro (humaLOG) LOW Coverage SC SCH ×4 (08:55→21:39)
[2017-02-19] MEDS: Omega-3-Acid Ethyl Esters 1 GM Cap PO SCH ×2 (09:01→17:01)
[2017-02-19] MEDS: Pantoprazole 40 mg EC Tab PO SCH (09:01)
--- NOTE | 2017-02-19 16:40 | CP.PCM.PN ---
Subjective - Date & Time of Evaluation Date of Evaluation: 02/19/17 Time of Evaluation: 09:15 - Subjective Subjective: Patient seen and examined at bedside with the resident.No active overnight issues reported. Labs, vitals and notes reviewed. He feels improvement in his abdominal symptoms along with nausea/vomiting. He doesn't have an appetite yet but is willing to try some clear liquids today. Labs, vitals , medications and GI consult reviewed. Objective - Vital Signs/Intake and Output Vital Signs (last 24 hours): Temp Pulse Resp BP Pulse Ox 97.5 F L 56 L 20 118/72 97 02/19/17 16:01 02/19/17 16:01 02/19/17 16:01 02/19/17 16:01 02/19/17 08:42 Intake and Output: 02/19/17 02/19/17 06:59 18:59 Intake Total 3600 Balance 3600 - Medications Medications: Current Medications Amylase (Pancrease 40082 U-5000 [id number] U) 25,000 u PO TID [facility] Last Admin: 02/18/17 11:00 Dose: Not Given Gabapentin (Neurontin) 300 mg PO DAILY [facility] PRN Reason: Protocol Last Admin: 02/19/17 09:01 Dose: 300 mg Gemfibrozil (Lopid) 600 mg PO BID [facility] Last Admin: 02/18/17 09:28 Dose: 600 mg Hydromorphone HCl (Dilaudid) 0.5 mg IVP Q6H PRN PRN Reason: Pain, severe (8-10) Last Admin: 02/19/17 10:24 Dose: 0.5 mg Sodium Chloride (Sodium Chloride 0.9%) 1,000 mls @ 150 mls/hr IV .Q6H40M [facility] Last Admin: 02/19/17 03:01 Dose: 150 mls/hr Insulin Human Lispro (Humalog Low) 0 units SC ACHS [facility] PRN Reason: Protocol Last Admin: 02/19/17 12:35 Dose: 3 units Colesevelam Hcl [ (Welchol] 625 Mg) 625 mg PO BID [facility] Last Admin: 02/18/17 09:30 Dose: Not Given [id number] Ethyl Esters (Lovaza) 2 gm PO BID [facility] Last Admin: 02/19/17 09:01 Dose: 2 gm Ondansetron HCl (Zofran Inj) 4 mg IVP Q6H PRN PRN Reason: Nausea/Vomiting Last Admin: 02/19/17 10:24 Dose: 4 mg Oxycodone/Acetaminophen (Percocet 5/325 Mg Tab) 1 tab PO Q6 PRN PRN Reason: Pain, moderate (4-7) Stop: 02/20/17 21:07 Pantoprazole Sodium (Protonix Ec Tab) 40 mg PO DAILY DO Last Admin: 02/19/17 09:01 Dose: 40 mg Polyethylene Glycol (Miralax) 17 gm PO DAILY PRN PRN Reason: Constipation - Labs Labs: 02/19/17 07:08 02/19/17 07:08 - Constitutional Appears: Well, No Acute Distress - Head Exam Head Exam: ATRAUMATIC, NORMAL INSPECTION - Eye Exam Eye Exam: Normal appearance, PERRL - ENT Exam ENT Exam: Mucous Membranes Dry, Normal Exam, Normal Oropharynx - Neck Exam Neck Exam: Full ROM - Respiratory Exam Respiratory Exam: Clear to Ausculation Bilateral, NORMAL BREATHING PATTERN - Cardiovascular Exam Cardiovascular Exam: RRR, +S1, +S2 - GI/Abdominal Exam GI & Abdominal Exam: Guarding, Tenderness, Normal Bowel Sounds - Extremities Exam Extremities Exam: Full ROM, Normal Capillary Refill, Normal Inspection - Back Exam Back Exam: NORMAL INSPECTION - Neurological Exam Neurological Exam: Alert, Awake, Oriented x3 - Psychiatric Exam Psychiatric exam: Normal Mood - Skin Skin Exam: Dry, Intact, Normal Color Assessment and Plan - Assessment and Plan (Free Text) Assessment: 41yo male with PMH of Hep C, Arthritis, chronic Pancreatitis, DM, HLD, chronic back pain presented to ED with multiple episodes of emesis and abdominall pain. Patient stated that the vomiting start early in the morning and he had multiple episodes of non bloody emesis despite not eating anything. He also stated that while at work her became dizzy and had to sit down, that is when his coworker called EMS. His TGL levels were >1000 in this admission but electrolytes have remained normal and his symptoms have improved with his bowel rest, fluid hydration and analgesic support.GI team is following the patient as well. Plan: 1. Chronic Pancreatitis with h/o Pseudocyst and TGL: -Clear liquid diet, analgesic/anti-emetic support -Continue IV fluids -Continue holding Gemfibrozil, Wellchol and Pancreazymes -GI follow up 2. Type 2DM: - Continue Long acting insulin regimen along with ISS 3.Supportive - Continue chronic Home medications
[2017-02-20] MEDS: HYDROmorphone 0.5 mg/0.5 ml ISec IVP PRN ×3 (02:02→16:04)
[2017-02-20 07:59] LABS: ADD MANUAL DIFF? NO
[2017-02-20 08:04] LABS: BASO # 0.05 K/mm3 (0.0-2.0); BASO % 1.5 % (0.0-3.0); EOS # 0.2 (0.0-0.7); EOS % 5.2 % (1.5-5.0); GRAN # 1.51 (1.4-6.5); GRAN % 46.3 % (50.0-68.0); HEMATOCRIT 33.1 % (42.0-52.0); LYMPH # 1.3 (1.2-3.4); LYMPH % 39.9 % (22.0-35.0); MEAN CELL VOLUME 74.4 fL (80.0-105.0); MEAN CORPUSCULAR HEMOGLOBIN 25.2 pg (25.0-35.0); MEAN CORPUSCULAR HGB CONC 33.8 g/dl (31.0-37.0); MEAN PLATELET VOLUME 11.2 fl (7.0-11.0); MONO # 0.2 (0.1-0.6); MONO % 7.1 % (1.0-6.0); PLATELET COUNT 131 10^3/uL (120.0-450.0); RED CELL DISTRIBUTION WIDTH 15.3 % (11.5-14.5); WHITE BLOOD COUNT 3.3 10^3/ul (4.5-11.0)
[2017-02-20] MEDS: Insulin Lispro (humaLOG) LOW Coverage SC SCH ×3 (08:10→16:35)
--- NOTE | 2017-02-20 08:11 | PN ---
DATE: 02/20/2017 I examined the patient this morning. 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 The patient has improved on the current therapeutic regimen, which consists of analgesics plus IV fluids. He was able to tolerate full liquid diet yesterday, but still has residual pain in the right upper quadrant. Pain level is down relative to day of admission. He also was able to have a bowel movement yesterday, which was on the liquidy side. He requested advance of diet. PHYSICAL EXAMINATION: VITAL SIGNS: I reviewed this patient's vital signs. HEENT: Significant for dry mouth. LUNGS: Decreased breath sounds basilar. HEART: Regular rhythm. ABDOMEN: Soft, decreased distention, tender right upper quadrant, but less than on day of admission. I reviewed this patient's laboratory data, which indicates a decreased H and H probably as a result of dilutional issues. Chemistry as of yesterday indicated glucose under better control, repeat triglyceride not measured. 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 Two factors which would decrease this patient's frequency of admissions: Compliance with pancreatic enzyme therapy as directed, and also correction of his hypertriglyceridemia, which has been an ongoing issue for this patient. At the patient's request, will increase diet to very small amounts of a 1600 calorie ADA diet. Again, I advised this patient very small portions since he is not ready to consume a full meal yet. Lucian Scott DO, PhD cc: [id number] TT: 02/20/2017 08:10:36 Confirmation # [id number] Dictation # [id number] en MTDJose R
[2017-02-20 08:13] LABS: ALKALINE PHOSPHATASE 67 U/L (38-133); ALT/SGPT 35 U/L (7-56); AST/SGOT 19 U/L (15-59); BILIRUBIN,TOTAL 0.5 mg/dL (0.2-1.3); BLOOD UREA NITROGEN 3 mg/dL (7-21); CALCIUM 8.3 mg/dL (8.4-10.5); CARBON DIOXIDE 24 mmol/L (21-33); CHLORIDE 105 mmol/L (98-107); GFR AFRICAN-AMERICAN > 60; GLUCOSE,RANDOM 273 mg/dL (70-110); POTASSIUM 3.6 mmol/L (3.6-5.0); SODIUM 135 mmol/L (132-148)
[2017-02-20] MEDS: Omega-3-Acid Ethyl Esters 1 GM Cap PO SCH ×2 (09:14→17:43)
[2017-02-20] MEDS: Pantoprazole 40 mg EC Tab PO SCH (09:15)
[2017-02-20 14:16] LABS: CHOLESTEROL 176 mg/dL (130-200)
[2017-02-20] MEDS: Sodium Chloride 0.9% 1,000 ML IV SCH (16:09)
[2017-02-20 17:32] VITALS: BP 131/81; PULSE 51; RESP 18; TEMP 97; O2SAT 98
--- NOTE | 2017-02-20 18:57 | CP.PCM.DIS ---
<Quinten Boykin - Last Filed: 02/20/17 19:38> Provider - Provider Date of Admission: 02/17/17 19:58 Attending physician: Mohit Lackey MD Primary care physician: Caryl Hightower MD Consults: GI: Tyler Time Spent in preparation of Discharge (in minutes): 45 Diagnosis - Discharge Diagnosis (1) Chronic pancreatitis Status: Chronic Priority: High (2) Hypertriglyceridemia Status: Acute Priority: High Comment: Improved (3) Nausea & vomiting Status: Resolved Priority: Medium (4) DM2 (diabetes mellitus, type 2) Status: Chronic Priority: Low Hospital Course - Lab Results Lab Results: Most Recent Lab Values WBC 3.3 10^3/ul (4.5-11.0) L D 02/20/17 07:00 RBC 4.45 10^6/uL (3.5-6.1) 02/20/17 07:00 Hgb 11.2 gm/dL (14.0-18.0) L 02/20/17 07:00 Hct 33.1 % (42.0-52.0) L 02/20/17 07:00 MCV 74.4 fL (80.0-105.0) L 02/20/17 07:00 MCH 25.2 pg (25.0-35.0) 02/20/17 07:00 MCHC 33.8 g/dl (31.0-37.0) 02/20/17 07:00 RDW 15.3 % (11.5-14.5) H 02/20/17 07:00 Plt Count 131 10^3/uL (120.0-450.0) 02/20/17 07:00 MPV 11.2 fl (7.0-11.0) H 02/20/17 07:00 Gran % 46.3 % (50.0-68.0) L 02/20/17 07:00 Lymph % (Auto) 39.9 % (22.0-35.0) H 02/20/17 07:00 Wise % (Auto) 7.1 % (1.0-6.0) H 02/20/17 07:00 Eos % (Auto) 5.2 % (1.5-5.0) H 02/20/17 07:00 Baso % (Auto) 1.5 % (0.0-3.0) 02/20/17 07:00 Gran # 1.51 (1.4-6.5) 02/20/17 07:00 Lymph # 1.3 (1.2-3.4) 02/20/17 07:00 Wise # 0.2 (0.1-0.6) 02/20/17 07:00 Eos # 0.2 (0.0-0.7) 02/20/17 07:00 Baso # 0.05 K/mm3 (0.0-2.0) 02/20/17 07:00 PT Cancelled 02/17/17 17:20 INR Cancelled 02/17/17 17:20 APTT Cancelled 02/17/17 17:20 Sodium 135 mmol/L (132-148) 02/20/17 07:00 Potassium 3.6 mmol/L (3.6-5.0) 02/20/17 07:00 Chloride 105 mmol/L (98-107) 02/20/17 07:00 Carbon Dioxide 24 mmol/L (21-33) 02/20/17 07:00 Anion Gap 10 (10-20) 02/20/17 07:00 BUN 3 mg/dL (7-21) L 02/20/17 07:00 Creatinine 0.5 mg/dL (0.5-1.4) 02/20/17 07:00 Est GFR ( Amer) > 60 02/20/17 07:00 Est GFR (Non-Af Amer) > 60 02/20/17 07:00 Random Glucose 273 mg/dL (70-110) H 02/20/17 07:00 Calcium 8.3 mg/dL (8.4-10.5) L 02/20/17 07:00 Total Bilirubin 0.5 mg/dL (0.2-1.3) 02/20/17 07:00 AST 19 U/L (15-59) 02/20/17 07:00 ALT 35 U/L (7-56) 02/20/17 07:00 Alkaline Phosphatase 67 U/L (38-133) 02/20/17 07:00 Lactate Dehydrogenase 571 U/L (333-699) 02/17/17 16:50 Total Creatine Kinase 168 U/L (35-230) 02/17/17 16:50 Troponin I < 0.01 ng/mL 02/17/17 16:50 Total Protein 6.0 g/dL (5.8-8.3) 02/20/17 07:00 Albumin 3.0 g/dL (3.0-4.8) 02/20/17 07:00 Globulin 3.0 gm/dL 02/20/17 07:00 Albumin/Globulin Ratio 1.0 (1.1-1.8) L 02/20/17 07:00 Triglycerides 512 mg/dL (35-160) H 02/20/17 07:00 Cholesterol 176 mg/dL (130-200) 02/20/17 07:00 LDL Cholesterol Direct 49 mg/dL (0-129) 02/20/17 07:00 HDL Cholesterol 15 mg/dL (29-60) L 02/20/17 07:00 Lipase 75 U/L (23-300) 02/17/17 16:50 - Hospital Course Hospital Course: This is a 42 yo M with PMH of Hep C, Arthritis, Chronic Pancreatitis with prior pseudocyst formation, DM, HLD, and chronic lower back pain who presented to [facility] ED with complaint of multiple episodes of non-bloody/non-bilious emesis and abd pain without clear triggering factor, and concurrent dizziness/near-syncope. While here, patient was seen by GI, who recommended compliance with Pancreatic enzyme regimen, careful advancement of diet, and correction of his hypertriglyceridemia (1751 on admission). Patient was started on clear liquids , and then to soft foods, which he tolerated well. He was instructed to follow up with his GI physician and his PMD on discharge, to resume all meds as instructed by GI, and to comply with his pancreatic enzyme therapy. He expressed understanding and agreement, and was then given an opportunity to ask any questions, which were answered to his satisfaction. Patient was then discharged. - Date & Time of H&P Date of H&P: 02/18/17 Time of H&P: 00:23 Discharge Exam - Head Exam Head Exam: ATRAUMATIC, NORMAL INSPECTION, NORMOCEPHALIC - Eye Exam Eye Exam: EOMI, Normal appearance. absent: Conjunctival injection, Scleral icterus Pupil Exam: absent: Irregular, Unequal - ENT Exam ENT Exam: Mucous Membranes Moist - Neck Exam Neck exam: Full Rom - Respiratory Exam Respiratory Exam: Clear to PA & Lateral, NORMAL BREATHING PATTERN, UNREMARKABLE. absent: Accessory Muscle Use, Chest Wall Tenderness, Decreased Breath Sounds, Rales, Rhonchi, Wheezes - Cardiovascular Exam Cardiovascular Exam: Bradycardia, REGULAR RHYTHM, +S1, +S2. absent: Tachycardia , Irregular Rhythm, JVD, RRR, +S4 - GI/Abdominal Exam GI & Abdominal Exam: Normal Bowel Sounds, Rebound, Soft, Tenderness (diffuse tenderness to palpation, most prominent along episgastric and RUQ regions). absent: Diminished Bowel Sounds, Distended, Firm, Hyperactive Bowel Sounds, Hypoactive Bowel Sounds, Rigid - Rectal Exam Rectal Exam: Deferred - Extremities Exam Additional comments: No calf tenderness on palpation, no gross asymmetrical swelling or erythemia in B/L LE, +2 radials and +1 dorsalis pedis B/L, ROM intact and appropriate B/L - Neurological Exam Neurological exam: Alert, Oriented x3 - Psychiatric Exam Psychiatric exam: Normal Affect, Normal Mood - Skin Skin Exam: Dry, Intact, Normal Color, Warm Discharge Plan - Follow Up Plan Condition: FAIR Disposition: HOME/ ROUTINE Instructions: How to Stop Smoking (DC), Pancreatitis (DC), Diabetes Mellitus Type 1 in Adults (DC), Acute Abdominal Pain (DC), Hyperlipidemia (DC) Additional Instructions: Please fill and take all medications as prescribed. Please follow up with your Primary Medical Doctor within 1 week of discharge. Referrals: Carly Hightower MD [Primary Care Provider] - <Mohit Lackey - Last Filed: 02/21/17 09:09> Provider - Provider Date of Admission: 02/17/17 19:58 Attending physician: Mohit Lackey MD Primary care physician: Caryl Hightower MD Hospital Course - Lab Results Lab Results: Most Recent Lab Values WBC 3.3 10^3/ul (4.5-11.0) L D 02/20/17 07:00 RBC 4.45 10^6/uL (3.5-6.1) 02/20/17 07:00 Hgb 11.2 gm/dL (14.0-18.0) L 02/20/17 07:00 Hct 33.1 % (42.0-52.0) L 02/20/17 07:00 MCV 74.4 fL (80.0-105.0) L 02/20/17 07:00 MCH 25.2 pg (25.0-35.0) 02/20/17 07:00 MCHC 33.8 g/dl (31.0-37.0) 02/20/17 07:00 RDW 15.3 % (11.5-14.5) H 02/20/17 07:00 Plt Count 131 10^3/uL (120.0-450.0) 02/20/17 07:00 MPV 11.2 fl (7.0-11.0) H 02/20/17 07:00 Gran % 46.3 % (50.0-68.0) L 02/20/17 07:00 Lymph % (Auto) 39.9 % (22.0-35.0) H 02/20/17 07:00 Wise % (Auto) 7.1 % (1.0-6.0) H 02/20/17 07:00 Eos % (Auto) 5.2 % (1.5-5.0) H 02/20/17 07:00 Baso % (Auto) 1.5 % (0.0-3.0) 02/20/17 07:00 Gran # 1.51 (1.4-6.5) 02/20/17 07:00 Lymph # 1.3 (1.2-3.4) 02/20/17 07:00 Wise # 0.2 (0.1-0.6) 02/20/17 07:00 Eos # 0.2 (0.0-0.7) 02/20/17 07:00 Baso # 0.05 K/mm3 (0.0-2.0) 02/20/17 07:00 PT Cancelled 02/17/17 17:20 INR Cancelled 02/17/17 17:20 APTT Cancelled 02/17/17 17:20 Sodium 135 mmol/L (132-148) 02/20/17 07:00 Potassium 3.6 mmol/L (3.6-5.0) 02/20/17 07:00 Chloride 105 mmol/L (98-107) 02/20/17 07:00 Carbon Dioxide 24 mmol/L (21-33) 02/20/17 07:00 Anion Gap 10 (10-20) 02/20/17 07:00 BUN 3 mg/dL (7-21) L 02/20/17 07:00 Creatinine 0.5 mg/dL (0.5-1.4) 02/20/17 07:00 Est GFR ( Amer) > 60 02/20/17 07:00 Est GFR (Non-Af Amer) > 60 02/20/17 07:00 Random Glucose 273 mg/dL (70-110) H 02/20/17 07:00 Calcium 8.3 mg/dL (8.4-10.5) L 02/20/17 07:00 Total Bilirubin 0.5 mg/dL (0.2-1.3) 02/20/17 07:00 AST 19 U/L (15-59) 02/20/17 07:00 ALT 35 U/L (7-56) 02/20/17 07:00 Alkaline Phosphatase 67 U/L (38-133) 02/20/17 07:00 Lactate Dehydrogenase 571 U/L (333-699) 02/17/17 16:50 Total Creatine Kinase 168 U/L (35-230) 02/17/17 16:50 Troponin I < 0.01 ng/mL 02/17/17 16:50 Total Protein 6.0 g/dL (5.8-8.3) 02/20/17 07:00 Albumin 3.0 g/dL (3.0-4.8) 02/20/17 07:00 Globulin 3.0 gm/dL 02/20/17 07:00 Albumin/Globulin Ratio 1.0 (1.1-1.8) L 02/20/17 07:00 Triglycerides 512 mg/dL (35-160) H 02/20/17 07:00 Cholesterol 176 mg/dL (130-200) 02/20/17 07:00 LDL Cholesterol Direct 49 mg/dL (0-129) 02/20/17 07:00 HDL Cholesterol 15 mg/dL (29-60) L 02/20/17 07:00 Lipase 75 U/L (23-300) 02/17/17 16:50 Attending/Attestation - Attestation I have personally seen and examined this patient.: Yes I have fully participated in the care of the patient.: Yes I have reviewed all pertinent clinical information, including history, physical exam and plan: Yes Notes (Text): 02/20/17 42 year old male with past medical history of hepatitic C, diabetes and chronic pancreatitis presented with abdominal pain and nausea/vomiting. His triglycerides were elevated. He was NPO and started on iv fluids and analgesics. GI evaluation was obtained for chronic pancreatitis. His symptoms improved and his diet was advanced which he is tolerating. He will be discharged home today to follow up with his pmd. Strongly recommended to follow up at [facility] GI/hepatitis clinic where they will adjust his medications for hypertriglyceridemia/chronic pancreatitis. Mohit Lackey MD Hospitalist.
== END 2017-02-20 18:52 | disposition home or self-care (01) | DRG 204 ==
LOC: ED 15:35 → ERH 19:58 → 5RNO 22:19
PROVIDERS: ADMIT Internal Medicine; ATTEND Internal Medicine
DX: K86.1 Other chronic pancreatitis (principal); E11.9 Type 2 diabetes mellitus without complications; E78.1 Pure hyperglyceridemia; M19.90 Unspecified osteoarthritis, unspecified site; E78.5 Hyperlipidemia, unspecified; Z86.19 Personal history of other infectious and parasitic diseases; Z79.4 Long term (current) use of insulin

== ENCOUNTER 2017-03-19 01:30 | Inpatient (IN) | payer OTHER ==
[2017-03-19 01:30] VITALS: BMI 23.7
--- NOTE | 2017-03-19 01:50 | ED PDOC ---
Arrival/HPI - General Time Seen by Provider: 03/19/17 01:34 Historian: Patient - History of Present Illness Narrative History of Present Illness (Text): 03/19/17 01:50 Cortez Oh is a 42 year old male, whose past medical history includes pancreatitis, Hepatitis C, peptic ulcer, hypertension, diabetes, and cholecystectomy, who presents to the emergency department complaining of abdominal pain. Patient states he has been experiencing diffuse abdominal pain with some radiation to his back since he was last discharged from the hospital on 02/20/2017. Patient reports associated nausea and vomiting. Patient states he has been compliant with his pancreatic enzymes. Patient denies any fever, chills, chest pain, shortness of breath, diarrhea, urinary symptoms, back pain, neck pain, headache, dizziness, or any other complaints. Symptom Onset: Gradual Symptom Course: Unchanged Activities at Onset: Rest, Light Context: Home Past Medical History - Provider Review Nursing Documentation Reviewed: Yes - Infectious Disease Hx of Infectious Diseases: None - Tetanus Immunization Tetanus Immunization: Unknown - Cardiac Hx Cardiac Disorders: Yes Hx Cardiac Arrhythmia: Yes (bradycardia) Hx Hypertension: Yes Hx Peripheral Vascular Disease: Yes - Pulmonary Hx Respiratory Disorders: Yes (chronic dry cough x 8 months since sx) - Neurological Hx Neurological Disorder: Yes Hx Dizziness: Yes (falls from dizziness since 2013) - HEENT Hx HEENT Disorder: Yes (blurry vision) Other/Comment: [place] due to earwax - Renal Hx Renal Disorder: Yes Hx Kidney Stones: Yes - Endocrine/Metabolic Hx Endocrine Disorders: Yes Hx Diabetes Mellitus Type 1: Yes - Hematological/Oncological Hx Blood Disorders: Yes Hx Hepatitis C: Yes - Integumentary Hx Dermatological Disorder: Yes Other/Comment: chronic itchy skin since "surgery 8 months ago" - Musculoskeletal/Rheumatological Hx Falls: Yes ("dizzy and falling since 2014") - Gastrointestinal Hx Gastrointestinal Disorders: Yes (chronic constipation) Hx Gall Bladder Disease: Yes (gallstones) Hx Gastroesophageal Reflux: Yes Hx Pancreatitis: Yes - Genitourinary/Gynecological Hx Genitourinary Disorders: Yes (burning on urination "sometimes') Hx Urinary Tract Infection: Yes - Psychiatric Hx Substance Use: No - Surgical History Hx Appendectomy: Yes Hx Cholecystectomy: Yes Other/Comment: 2009 in [place] ap ruptured damagec pancreas, had sx on pancreas and gb sx at [facility] [place] 8 months ago - Anesthesia Hx Anesthesia: Yes - Suicidal Assessment Feels Threatened In Home Enviroment: No Family/Social History - Physician Review Nursing Documentation Reviewed: Yes Family/Social History: Unknown Family HX Smoking Status: cigar x4pd Hx Alcohol Use: No Hx Substance Use: No Hx Substance Use Treatment: No Allergies/Home Meds Allergies/Adverse Reactions: Allergies dy Allergy (Mild, Uncoded 02/17/17 15:38) ITCHING hair color dye Allergy (Uncoded 02/17/17 15:38) RASH Home Medications: Home Meds Medication Instructions Recorded Confirmed Colesevelam HCl [Welchol] 625 mg PO BID 01/25/17 03/19/17 Gabapentin [Neurontin] 1 cap PO DAILY 01/25/17 03/19/17 Oxycodone HCl/Acetaminophen 1 tab PO Q6 PRN 01/25/17 03/19/17 [Endocet 5-325 Tablet] Lipase/Protease/Amylase [Creon Dr 1 each PO TID 03/19/17 03/19/17 36,000 Units Capsule] Review of Systems - Physician Review All systems were reviewed & negative as marked: Yes - Review of Systems Constitutional: Normal. absent: Fevers Eyes: Normal ENT: Normal Respiratory: Normal. absent: SOB, Cough Cardiovascular: Normal. absent: Chest Pain Gastrointestinal: Abdominal Pain, Nausea, Vomiting Genitourinary Male: Normal. absent: Dysuria, Frequency, Hematuria, Urinary Output Changes Skin: Normal. absent: Rash Neurological: Normal. absent: Headache, Dizziness Endocrine: Normal Hemo/Lymphatic: Normal Psychiatric: Normal Physical Exam Vital Signs Reviewed: Yes Vital Signs Temp Pulse Resp BP Pulse Ox 03/19/17 03:57 98.4 F 62 17 108/63 98 03/19/17 01:57 98.0 F 79 17 120/83 99 Temperature: Afebrile Blood Pressure: Normal Pulse: Regular Respiratory Rate: Normal Appearance: Positive for: Well-Appearing, Non-Toxic, Comfortable Pain Distress: None Mental Status: Positive for: Alert and Oriented X 3 - Systems Exam Head: Present: Atraumatic, Normocephalic Pupils: Present: PERRL Extroacular Muscles: Present: EOMI Conjunctiva: Present: Normal Mouth: Present: Moist Mucous Membranes Neck: Present: Normal Range of Motion Respiratory/Chest: Present: Clear to Auscultation, Good Air Exchange. No: Respiratory Distress, Accessory Muscle Use Cardiovascular: Present: Regular Rate and Rhythm, Normal S1, S2. No: Murmurs Abdomen: Present: Tenderness (Diffuse abdominal tenderness), Normal Bowel Sounds. No: Distention, Peritoneal Signs Back: Present: Normal Inspection Upper Extremity: Present: Normal Inspection. No: Cyanosis, Edema Lower Extremity: Present: Normal Inspection. No: Edema Neurological: Present: GCS=15, CN II-XII Intact, Speech Normal Skin: Present: Warm, Dry, Normal Color. No: Rashes Psychiatric: Present: Alert, Oriented x 3, Normal Insight, Normal Concentration Medical Decision Making ED Course and Treatment: 03/19/17 01:50 Impression: 42 year old male complaining of diffuse abdominal pain, nausea, and vomiting. Differential Diagnosis included but are not limited to: pancreatitis vs. intractable abdominal pain vs. gastritis Plan: -- CT Abdomen and Pelvis with IV contrast -- EKG -- Labs, lipase -- IV fluids -- Zofran -- Protonix -- Dilaudid -- Reassess and disposition Prior Visits: Notes and results from previous visits were reviewed. On 02/20/2017, pt was seen in the emergency department for abdominal pain and vomiting. Pt was admitted to the hospital for further evaluation. Progress Notes: Reviewed EKG, NSR at 69 bpm. Occasional sinus arrhythmia. No acute changes. 03/19/17 04:27 Case discussed with medical review specialist, who is aware and agrees with plan. 03/19/17 04:45 Reviewed radiology, CT Abdomen and Pelvis shows: Stable findings of biliary duct dilation, splenomegaly, splenic and portal varices. Decreased size of pancreatic pseudocyst. Questionable infectious/inflammatory process at the gastroduodenal junction. Clinical correlation recommended. 03/19/17 05:[address] Lucius Jarvis, who is aware and agrees with plan. Accepts pt in to hospitalist service. Pt [facility] go to [facility] observation for intractable abdominal pain. Discussed results and hospital observation plan with pt, who is aware and verbalizes understanding. - Lab Interpretations Lab Results: 03/19/17 02:00 03/19/17 02:00 Lab Results 03/19/17 02:00: WBC 5.0 D, RBC 5.23, Hgb 14.1, Hct 39.2 L, MCV 75.0 L, MCH 27.0 , MCHC 36.0, RDW 14.3, Plt Count 185, MPV 11.4 H 03/19/17 02:00: Sodium 137, Potassium 4.2, Chloride 103, Carbon Dioxide 22, Anion Gap 16, BUN 14, Creatinine 0.6, Est GFR ( Amer) > 60, Est GFR (Non- Af Amer) > 60, Random Glucose 167 H, Calcium 9.5, Total Bilirubin 1.3, AST 33, ALT 19, Alkaline Phosphatase 95, Total Protein 8.4 H, Albumin 4.4, Globulin 4.0 , Albumin/Globulin Ratio 1.1, Lipase 48 03/19/17 01:50: POC Glucose (mg/dL) 171 H I have reviewed the lab results: Yes - RAD Interpretation Narrative RAD Interpretations (Text): CT Abdomen and Pelvis shows: Cholecystectomy clips are present. There is intrahepatic duct dilation likely secondary to cholecystectomy. Stable hypoattenuating lesion in the caudate lobe too small to accurately characterize. The spleen is prominent. Splenic varices are present. Again seen is a cyst in the pancreatic body. It has decreased in size measuring 2.7 cm on prior and measuring 2.2 centimeters on current. Again seen is severe atrophy of the distal pancreatic body and of the pancreatic tail. Again seen is slight heterogeneity at the junction of the pancreatic head and tail. Clip along the posterior gastric body. There appears to be wall thickening at the gastroduodenal junction. Possibilities would include underdistention, chronic thickening from adjacent pancreatitis, infectious/ inflammatory process. Underlying lesion would be difficult to completely exclude. The appendix is not identified however there are no secondary signs of appendicitis such as pericecal stranding. Stable punctate hypoattenuating left renal lesion too small to characterize. Nonobstructing left renal calcification. IMPRESSION: Stable findings of biliary duct dilation, splenomegaly, splenic and portal varices. Decreased size of pancreatic pseudocyst. Questionable infectious/inflammatory process at the gastroduodenal junction. Clinical correlation recommended. 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 Yes Sleep Is patient sleeping during reassessment? Yes Hydromorphone HCl (Dilaudid) 1 mg IVP STAT STA Stop: 03/19/17 04:29 Last Admin: 03/19/17 04:41 Dose: 1 mg Sodium Chloride (Sodium Chloride 0.9%) 1,000 mls @ 999 mls/hr IV .Q1H1M STA Stop: 03/19/17 02:54 Last Admin: 03/19/17 02:10 Dose: 999 mls/hr Iohexol (Omnipaque 350 100 Ml) Confirm Administered Dose 350 mg .ROUTE .STK-MED ONE Stop: 03/19/17 02:05 Ondansetron HCl (Zofran Inj) 4 mg IVP ONCE ONE Stop: 03/19/17 01:55 Last Admin: 03/19/17 02:09 Dose: 4 mg Ondansetron HCl (Zofran Inj) 4 mg IVP ONCE ONE Stop: 03/19/17 04:29 Last Admin: 03/19/17 04:41 Dose: 4 mg Pantoprazole Sodium (Protonix Inj) 40 mg IVP ONCE STA Stop: 03/19/17 01:55 Last Admin: 03/19/17 02:09 Dose: 40 mg - Coltibe Statement The provider has reviewed the documentation as recorded by the Jeny Dover All medical record entries made by the Jeny were at my direction and personally dictated by me. I have reviewed the chart and agree that the record accurately reflects my personal performance of the history, physical exam, medical decision making, and the department course for this patient. I have also personally directed, reviewed, and agree with the discharge instructions and disposition. Disposition/Present on Arrival - Present on Arrival Any Indicators Present on Arrival: No History of DVT/PE: No History of Uncontrolled Diabetes: Yes Urinary Catheter: No History Surgical Site Infection Following: None - Disposition Have Diagnosis and Disposition been Completed?: Yes Diagnosis: Intractable abdominal pain, Intractable vomiting with nausea Disposition: HOSPITALIZED Disposition Time: 04:32 Patient Plan: Observation Patient Problems: Current Active Problems Problem Status Onset Intractable vomiting with nausea Acute Intractable abdominal pain Chronic Condition: STABLE
[2017-03-19] MEDS ORDERED: HYDROmorphone 1 mg/ml ISec IVP STA ×3 (01:54→10:24)
[2017-03-19] MEDS ORDERED: Sodium Chloride 0.9% 1,000 ML IV STA (01:54)
[2017-03-19] MEDS ORDERED: Iohexol 350 MG/100 ML VIAL ONE (02:04)
[2017-03-19 02:18] LABS: HEMOGLOBIN 14.1 gm/dL (14.0-18.0); MEAN PLATELET VOLUME 11.4 fl (7.0-11.0); RBC 5.23 10^6/uL (3.5-6.1); RED CELL DISTRIBUTION WIDTH 14.3 % (11.5-14.5)
[2017-03-19 02:24] LABS: ALB/GLOB RATIO 1.1 (1.1-1.8); ALBUMIN 4.4 g/dL (3.0-4.8); ALT/SGPT 19 U/L (7-56); AST/SGOT 33 U/L (15-59); BLOOD UREA NITROGEN 14 mg/dL (7-21); CALCIUM 9.5 mg/dL (8.4-10.5); GFR AFRICAN-AMERICAN > 60; GFR NON-AFRICAN AMERICAN > 60; LIPASE 48 U/L (23-300)
--- NOTE | 2017-03-19 04:42 | CT ---
EXAM: CT Abdomen and Pelvis With Intravenous Contrast CLINICAL HISTORY: 42 years old, male; Pain; Abdominal pain; Generalized TECHNIQUE: Axial computed tomography images of the abdomen and pelvis with intravenous contrast. This CT exam was performed using one or more of the following dose reduction techniques: automated exposure control, adjustment of the mA and/or kV according to patient size, and/or use of iterative reconstruction technique. Coronal and sagittal reformatted images were created and reviewed. CONTRAST: 100 mL of OMNI 350 administered intravenously. EXAM DATE/TIME: 03/19/2017 1:53 AM COMPARISON: CT - ABD PELVIS IV CONTRAST ONLY 01/25/2017 10:25:41 AM FINDINGS: Cholecystectomy clips are present. There is intrahepatic duct dilation likely secondary to cholecystectomy. Stable hypoattenuating lesion in the caudate lobe too small to accurately characterize. The spleen is prominent. Splenic varices are present. Again seen is a cyst in the pancreatic body. It has decreased in size measuring 2.7 cm on prior and measuring 2.2 centimeters on current. Again seen is severe atrophy of the distal pancreatic body and of the pancreatic tail. Again seen is slight heterogeneity at the junction of the pancreatic head and tail. Clip along the posterior gastric body. There appears to be wall thickening at the gastroduodenal junction. Possibilities would include underdistention, chronic thickening from adjacent pancreatitis, infectious/inflammatory process. Underlying lesion would be difficult to completely exclude. The appendix is not identified however there are no secondary signs of appendicitis such as pericecal stranding. Stable punctate hypoattenuating left renal lesion too small to characterize. Nonobstructing left renal calcification. IMPRESSION: Stable findings of biliary duct dilation, splenomegaly, splenic and portal varices. Decreased size of pancreatic pseudocyst. Questionable infectious/inflammatory process at the gastroduodenal junction. Clinical correlation recommended.
--- NOTE | 2017-03-19 06:12 | CP.PCM.HP ---
History of Present Illness - History of Present Illness History of Present Illness: pt with hx of recurrent pancreatitis with complication of pseudocysyt and diabetes ,came to the ER for c/o abdominal pain generalized associated with nausea and vomiting multiple times since yesterday .pt states hs been admitted multiple times to [facility] for the same reason. pt also c/o constipation and passing blood withe stool .pt has GI doctor DR barcenas with who he follows with . pt also has hx of hepatitis c not treated. Present on Admission - Present on Admission Any Indicators Present on Admission: No Review of Systems - Review of Systems Review of Systems: as mentioned above. - Gastrointestinal Gastrointestinal: Abdominal Pain, Change in Bowel Habits, Change in Stool Character, Constipation, Nausea, Vomiting Past Patient History - Infectious Disease Hx of Infectious Diseases: None - Tetanus Immunizations Tetanus Immunization: Unknown - Past Medical History & Family History Past Medical History?: Yes - Past Social History Smoking Status: cigar x4pd - CARDIAC Hx Cardiac Disorders: Yes Hx Cardia Arrhythmia: Yes (bradycardia) Hx Hypertension: Yes Hx Peripheral Vascular Disease: Yes - PULMONARY Hx Respiratory Disorders: Yes (chronic dry cough x 8 months since sx) - NEUROLOGICAL Hx Neurological Disorder: Yes Hx Dizziness: Yes (falls from dizziness since 2013) - HEENT Hx HEENT Problems: Yes (blurry vision) Other/Comment: [place] due to earwax - RENAL Hx Chronic Kidney Disease: Yes Hx Kidney Stones: Yes - ENDOCRINE/METABOLIC Hx Endocrine Disorders: Yes Hx Diabetes Mellitus Type 1: Yes - HEMATOLOGICAL/ONCOLOGICAL Hx Blood Disorders: Yes Hx Hepatitis C: Yes - INTEGUMENTARY Hx Dermatological Problems: Yes Other/Comment: chronic itchy skin since "surgery 8 months ago" - MUSCULOSKELETAL/RHEUMATOLOGICAL Hx Falls: Yes ("dizzy and falling since 2013") - GASTROINTESTINAL Hx Gastrointestinal Disorders: Yes (chronic constipation) Hx Gall Bladder Disease: Yes (gallstones) Hx Gastroesophageal Reflux: Yes Hx Pancreatitis: Yes - GENITOURINARY/GYNECOLOGICAL Hx Genitourinary Disorders: Yes (burning on urination "sometimes') Hx Urinary Tract Infection: Yes - PSYCHIATRIC Hx Substance Use: No - SURGICAL HISTORY Hx Appendectomy: Yes Hx Cholecystectomy: Yes Other/Comment: 2008 in [place] ap ruptured damagec pancreas, had sx on pancreas and gb sx at [facility] 8 months ago - ANESTHESIA Hx Anesthesia: Yes Meds Allergies/Adverse Reactions: Allergies Allergy/AdvReac Type Severity Reaction Status Date / Time dy Allergy Mild ITCHING Uncoded 02/17/17 15:38 hair color dye Allergy RASH Uncoded 02/17/17 15:38 Physical Exam - Constitutional Appears: No Acute Distress - Head Exam Head Exam: NORMOCEPHALIC - Eye Exam Pupil Exam: PERRL - ENT Exam ENT Exam: Mucous Membranes Moist - Neck Exam Neck exam: Positive for: Full Rom, Normal Inspection - Respiratory Exam Respiratory Exam: Clear to Auscultation Bilateral, NORMAL BREATHING PATTERN - Cardiovascular Exam Cardiovascular Exam: RRR, +S1, +S2 - GI/Abdominal Exam GI & Abdominal Exam: Soft, Tenderness Additional comments: pt has tenderness generalized . - Rectal Exam Rectal Exam: Deferred - Extremities Exam Extremities exam: Positive for: full ROM - Neurological Exam Neurological exam: Alert, CN II-XII Intact, Oriented x3 - Psychiatric Exam Psychiatric exam: Normal Affect - Skin Skin Exam: Dry, Warm Results - Vital Signs Recent Vital Signs: Last Vital Signs Temp 98.4 F 03/19/17 03:57 Pulse 53 L 03/19/17 05:23 Resp 17 03/19/17 05:23 BP 120/69 03/19/17 05:23 Pulse Ox 99 03/19/17 05:23 - Labs Result Diagrams: 03/21/17 08:05 03/21/17 08:05 Assessment & Plan - Assessment and Plan (Free Text) Assessment: generalized abdominal pain / chronic pancreatitis. hx of DM secondry to above. hx of hepatitis c not treated . hx of pud. hemorrhoids . Plan: npo . pain meds . GI consult . accu check with coverage. mary carmen . - Date & Time Date: 03/19/17 Time: 06:12
[2017-03-19] MEDS ORDERED: POLYETHYLENE GLYCOL 3350 17 GM/Dose PACKET PO PRN (06:16)
[2017-03-19] MEDS ORDERED: Sodium Chloride 0.9% 1,000 ML IV SCH ×2 (06:30→11:54)
[2017-03-19] MEDS: HYDROmorphone 1 mg/ml ISec IVP PRN ×4 (08:54→21:44)
[2017-03-19] MEDS: Omega-3-Acid Ethyl Esters 1 GM Cap PO SCH ×3 (10:10→17:44)
[2017-03-19 10:18] LABS: HDL CHOLESTEROL 19 mg/dL (29-60)
[2017-03-19 10:38] LABS: LDL CHOLESTEROL -150 mg/dL (0-129)
--- NOTE | 2017-03-19 10:40 | CARD ---
APPROVED REPORT EKG Measurement Heart [id number] <Conclusion> Normal sinus rhythm with sinus arrhythmia Normal ECG
[2017-03-19] MEDS: Insulin Lispro (HUMAlog) HIGH Coverage SC SCH (12:16)
--- NOTE | 2017-03-19 12:48 | CP.PCM.CON ---
History of Present Illness - History of Present Illness History of Present Illness: 42 yo with h/o chronic pancreatitis and Hepc and congenital hypertriglyceridemia , who came with abdo pain, N/V and was found to have TG more then 1400. Abdo pain is moderate, diffuse, radiating to back, aggravated by changing body position. It is mostly chronic however as per patient's report and patient does appear comfortable on an outside. The episode is similar to previous one about a month ago. Patient is known to have several surgeries for pseudocyst. Reportedly he still has one that is non-reachable. No ChP, no SOb, No dysuria. Review of Systems - Gastrointestinal Gastrointestinal: Abdominal Pain Past Patient History - Infectious Disease Hx of Infectious Diseases: None - Tetanus Immunizations Tetanus Immunization: Unknown - Past Medical History & Family History Past Medical History?: Yes - Past Social History Smoking Status: cigar x4pd - CARDIAC Hx Cardiac Disorders: Yes Hx Cardia Arrhythmia: Yes (bradycardia) Hx Hypertension: Yes Hx Peripheral Vascular Disease: Yes - PULMONARY Hx Respiratory Disorders: Yes (chronic dry cough x 8 months since sx) - NEUROLOGICAL Hx Neurological Disorder: Yes Hx Dizziness: Yes (falls from dizziness since 2013) - HEENT Hx HEENT Problems: Yes (blurry vision) Other/Comment: [place] due to earwax - RENAL Hx Chronic Kidney Disease: Yes Hx Kidney Stones: Yes - ENDOCRINE/METABOLIC Hx Endocrine Disorders: Yes Hx Diabetes Mellitus Type 1: Yes - HEMATOLOGICAL/ONCOLOGICAL Hx Blood Disorders: Yes Hx Hepatitis C: Yes - INTEGUMENTARY Hx Dermatological Problems: Yes Other/Comment: chronic itchy skin since "surgery 8 months ago" - MUSCULOSKELETAL/RHEUMATOLOGICAL Hx Falls: Yes ("dizzy and falling since 2013") - GASTROINTESTINAL Hx Gastrointestinal Disorders: Yes (chronic constipation) Hx Gall Bladder Disease: Yes (gallstones) Hx Gastroesophageal Reflux: Yes Hx Pancreatitis: Yes - GENITOURINARY/GYNECOLOGICAL Hx Genitourinary Disorders: Yes (burning on urination "sometimes') Hx Urinary Tract Infection: Yes - PSYCHIATRIC Hx Substance Use: No - SURGICAL HISTORY Hx Appendectomy: Yes Hx Cholecystectomy: Yes Other/Comment: 2008 in [place] ap ruptured damagec pancreas, had sx on pancreas and gb sx at [facility] 8 months ago - ANESTHESIA Hx Anesthesia: Yes Meds Allergies/Adverse Reactions: Allergies Allergy/AdvReac Type Severity Reaction Status Date / Time dy Allergy Mild ITCHING Uncoded 02/17/17 15:38 hair color dye Allergy RASH Uncoded 02/17/17 15:38 - Medications Medications: Current Medications Atorvastatin Calcium (Lipitor) 20 mg PO DIN [facility] Gabapentin (Neurontin) 300 mg PO DAILY [facility] PRN Reason: Protocol Last Admin: 03/19/17 10:10 Dose: 300 mg Gemfibrozil (Lopid) 600 mg PO BID [facility] Last Admin: 03/19/17 10:10 Dose: 600 mg Hydromorphone HCl (Dilaudid) 1 mg IVP Q4H PRN PRN Reason: Pain, Mild (1-3) Last Admin: 03/19/17 08:54 Dose: 1 mg Sodium Chloride (Sodium Chloride 0.9%) 1,000 mls @ 200 mls/hr IV .Q5H [facility] Insulin Human Lispro (Humalog High) 0 units SC ACHS [facility] PRN Reason: Protocol Last Admin: 03/19/17 12:16 Dose: 5 units Lipase/Protease/Amylase [Kiel Leal 36 ,000 Units] Home Med 1 each PO TID [facility] [id number] Ethyl Esters (Lovaza) 2 gm PO BID [facility] Last Admin: 03/19/17 10:10 Dose: 2 gm Ondansetron HCl (Zofran Inj) 4 mg IVP Q6H PRN PRN Reason: n/v Last Admin: 03/19/17 10:10 Dose: 4 mg Pantoprazole Sodium (Protonix Inj) 40 mg IVP DAILY [facility] Last Admin: 03/19/17 10:11 Dose: 40 mg Polyethylene Glycol (Miralax) 17 gm PO DAILY PRN PRN Reason: Constipation Physical Exam - Head Exam Head Exam: ATRAUMATIC - Eye Exam Eye Exam: EOMI, PERRL - ENT Exam ENT Exam: Mucous Membranes Dry - Neck Exam Neck exam: Positive for: Normal Inspection - Respiratory Exam Respiratory Exam: Clear to Auscultation Bilateral, NORMAL BREATHING PATTERN - Cardiovascular Exam Cardiovascular Exam: REGULAR RHYTHM - GI/Abdominal Exam GI & Abdominal Exam: Normal Bowel Sounds - Rectal Exam Rectal Exam: Deferred - Psychiatric Exam Psychiatric exam: Normal Affect, Normal Mood - Skin Skin Exam: Dry Results - Vital Signs Recent Vital Signs: Last Vital Signs Temp 99.5 F 03/19/17 08:40 Pulse 77 03/19/17 08:40 Resp 20 03/19/17 08:40 BP 110/68 03/19/17 08:40 Pulse Ox 95 03/19/17 08:40 - Labs Result Diagrams: 03/19/17 02:00 03/19/17 02:00 Labs: Laboratory Results - last 24 hr 03/19/17 03/19/17 03/19/17 09:50 10:03 11:20 POC Glucose (mg/dL) 302 H 296 H Triglycerides 1479 H Cholesterol 165 LDL Cholesterol Direct -150 L HDL Cholesterol 19 L Assessment & Plan - Assessment and Plan (Free Text) Assessment: 42 yo male with chronic pancreatitis and substantial exo and endocrine pancreatic dysfunction, unable to rule out acute component despite normal lipase as it may be falsely low if not enough pancreatic tissue left to produce lipase. Acute component may be due to severe hypertriglyceridemia. Plan: 1. Insulin drip 2. Aggressive fluid resuscitation 3. GI, endo consult 4. If patient reconsider plasmapheresis will call call [facility] for plasmapheresis 5. DVT/GI prophylaxis 6. Will touch base with GI about nutrition route and timing thereof. 7. Once less nauseous will consider Loped and exocrine pancreatic enzymes supplementation 8. serial TG, BMP, accu q1, avoid hypoglycemia ccm time 40 min
[2017-03-19] MEDS ORDERED: Insulin Regular 100 UNITS in Sodium Chloride 0.9% 99 ML IV PRN (14:22)
[2017-03-19] MEDS ORDERED: Pneumococcal 23-Valent Vaccine IM ONE (15:25)
[2017-03-19] MEDS: LIPASE PO SCH ×2 (16:02→17:15)
[2017-03-19] MEDS: AMYLASE PO SCH ×2 (16:02→17:15)
[2017-03-19] MEDS: PROTEASE PO SCH ×2 (16:02→17:15)
[2017-03-19 16:42] LABS: BLOOD UREA NITROGEN 12 mg/dL (7-21); CALCIUM 8.3 mg/dL (8.4-10.5); GFR AFRICAN-AMERICAN > 60; GFR NON-AFRICAN AMERICAN > 60
[2017-03-19] MEDS: Insulin Regular 100 UNITS in Sodium Chloride 0.9% 99 ML IV PRN ×2 (17:08→17:13)
[2017-03-19 20:39] LABS: BLOOD UREA NITROGEN 11 mg/dL (7-21); CALCIUM 8.2 mg/dL (8.4-10.5); GFR AFRICAN-AMERICAN > 60; GFR NON-AFRICAN AMERICAN > 60
[2017-03-19] MEDS: Dextrose 5%/0.45% NS 1,000 ML IV SCH (23:00)
[2017-03-20 01:17] LABS: BLOOD UREA NITROGEN 9 mg/dL (7-21); CALCIUM 8.2 mg/dL (8.4-10.5); GFR AFRICAN-AMERICAN > 60; GFR NON-AFRICAN AMERICAN > 60
[2017-03-20] MEDS: HYDROmorphone 1 mg/ml ISec IVP PRN ×6 (02:08→23:35)
[2017-03-20 04:42] LABS: BLOOD UREA NITROGEN 8 mg/dL (7-21); CALCIUM 8.2 mg/dL (8.4-10.5); GFR AFRICAN-AMERICAN > 60; GFR NON-AFRICAN AMERICAN > 60
[2017-03-20 04:47] LABS: HEMOGLOBIN 12.3 gm/dL (14.0-18.0); MEAN CELL VOLUME 75.8 fL (80.0-105.0); RBC 4.75 10^6/uL (3.5-6.1); WHITE BLOOD COUNT 3.7 10^3/ul (4.5-11.0)
[2017-03-20 04:48] LABS: BASO # 0.04 K/mm3 (0.0-2.0); BASO % 1.1 % (0.0-3.0); EOS # 0.2 (0.0-0.7); EOS % 4.8 % (1.5-5.0); GRAN # 1.43 (1.4-6.5); GRAN % 38.3 % (50.0-68.0); LYMPH # 1.8 (1.2-3.4); LYMPH % 48.8 % (22.0-35.0); MEAN CORPUSCULAR HEMOGLOBIN 25.9 pg (25.0-35.0); MEAN CORPUSCULAR HGB CONC 34.2 g/dl (31.0-37.0); MEAN PLATELET VOLUME 11.7 fl (7.0-11.0); MONO # 0.3 (0.1-0.6); PLATELET COUNT 158 10^3/uL (120.0-450.0); RED CELL DISTRIBUTION WIDTH 15.3 % (11.5-14.5)
[2017-03-20] MEDS: Dextrose 5%/0.45% NS 1,000 ML IV SCH (08:10)
[2017-03-20 08:44] LABS: BLOOD UREA NITROGEN 7 mg/dL (7-21); CALCIUM 8.3 mg/dL (8.4-10.5); GFR AFRICAN-AMERICAN > 60; GFR NON-AFRICAN AMERICAN > 60
[2017-03-20] MEDS: Insulin Detemir 100 units/ml Vial (Levemir) SC SCH (10:03)
[2017-03-20] MEDS: LIPASE PO SCH ×3 (10:09→17:58)
[2017-03-20] MEDS: PROTEASE PO SCH ×3 (10:09→17:58)
[2017-03-20] MEDS: Omega-3-Acid Ethyl Esters 1 GM Cap PO SCH ×2 (10:09→18:00)
[2017-03-20] MEDS: AMYLASE PO SCH ×3 (10:09→17:58)
[2017-03-20] MEDS: Sodium Chloride 0.9% 1,000 ML IV SCH (10:13)
[2017-03-20] MEDS: Insulin Lispro (HUMAlog) HIGH Coverage SC SCH ×3 (12:08→22:30)
[2017-03-20 12:31] LABS: BLOOD UREA NITROGEN 6 mg/dL (7-21); CALCIUM 8.2 mg/dL (8.4-10.5); GFR AFRICAN-AMERICAN > 60; GFR NON-AFRICAN AMERICAN > 60
--- NOTE | 2017-03-20 12:51 | CP.PCM.PN ---
<BradmariiJessicaarslan - Last Filed: 03/20/17 17:27> Subjective - Date & Time of Evaluation Date of Evaluation: 03/20/17 Time of Evaluation: 12:50 - Subjective Subjective: Patient has been S/E. Patient stated that he felt Nauseus overnight and recieved Zofran. Still complains of nausea and RUQ pain that gets worse with movement, but both have improved since yesterday. Denies fever, chills, vomitting and chest pain. Objective - Vital Signs/Intake and Output Vital Signs (last 24 hours): Temp Pulse Resp BP Pulse Ox 97.9 F 61 11 L 113/40 L 98 03/20/17 12:00 03/20/17 12:30 03/20/17 12:00 03/20/17 11:00 03/20/17 12:46 - Medications Medications: Current Medications Atorvastatin Calcium (Lipitor) 20 mg PO DIN [facility] Last Admin: 03/19/17 17:44 Dose: 20 mg Gabapentin (Neurontin) 300 mg PO DAILY [facility] PRN Reason: Protocol Last Admin: 03/20/17 10:09 Dose: 300 mg Gemfibrozil (Lopid) 600 mg PO BID [facility] Last Admin: 03/20/17 10:09 Dose: 600 mg Hydromorphone HCl (Dilaudid) 1 mg IVP Q4H PRN PRN Reason: Pain, Mild (1-3) Last Admin: 03/20/17 10:23 Dose: 1 mg Sodium Chloride (Sodium Chloride 0.9%) 1,000 mls @ 150 mls/hr IV .Q6H40M [facility] Last Admin: 03/20/17 10:13 Dose: 150 mls/hr Insulin Detemir (Levemir) 15 unit SC DAILY [facility] Last Admin: 03/20/17 10:03 Dose: 15 unit Insulin Human Lispro (Humalog High) 0 units SC ACHS [facility] PRN Reason: Protocol Last Admin: 03/20/17 12:08 Dose: 4 units Nadolol (Corgard) 20 mg PO DAILY [facility] Last Admin: 03/20/17 10:02 Dose: Not Given Lipase/Protease/Amylase [Kiel Leal 36 ,000 Units] Home Med 1 each PO TID [facility] Last Admin: 03/20/17 10:09 Dose: Not Given [id number]-[id number] Ethyl Esters (Lovaza) 2 gm PO BID [facility] Last Admin: 03/20/17 10:09 Dose: 2 gm Ondansetron HCl (Zofran Inj) 4 mg IVP Q6H PRN PRN Reason: n/v Last Admin: 03/20/17 12:09 Dose: 4 mg Pantoprazole Sodium (Protonix Inj) 40 mg IVP DAILY [facility] Last Admin: 03/20/17 09:55 Dose: 40 mg Polyethylene Glycol (Miralax) 17 gm PO DAILY PRN PRN Reason: Constipation - Labs Labs: 03/20/17 12:00 - Constitutional Appears: Non-toxic, No Acute Distress - Head Exam Head Exam: ATRAUMATIC, NORMOCEPHALIC - Eye Exam Eye Exam: EOMI. absent: Scleral icterus - ENT Exam ENT Exam: Mucous Membranes Moist - Respiratory Exam Respiratory Exam: Clear to Ausculation Bilateral. absent: Rhonchi, Wheezes - Cardiovascular Exam Cardiovascular Exam: REGULAR RHYTHM, +S1, +S2. absent: Murmur - GI/Abdominal Exam GI & Abdominal Exam: Tenderness, Normal Bowel Sounds - Psychiatric Exam Psychiatric exam: Normal Affect - Skin Skin Exam: Intact, Normal Color, Warm Assessment and Plan - Assessment and Plan (Free Text) Assessment: Patient is a 42 year old male w/ a PMH of DM, recurrent pancreatitis, pancreatic pseudocyst,multiple surgeries, and untreated Hep C, who presented to the ER on 03/19 complaining of abdominal pain. Admittted for pancreatitis and Hypertriglycerdemia. Plan: 1. Pancreatitis 2/2 #2. (Improving) - Advance diet as tolerated - Moniter abdominal exam for worsening symptoms -Cont. IV Fluids -Pain management (Dilaudid) 2.Hypertryglycerdemia - (Improving - down to 334) -D/C Insulin Drip -Start SQ Levemir insulin -Blood Glucose Monitoring on ISS 3. GI Proph - Protonix 4. DVT proph -SCD Case seen reviewed and discussed with attending. Vani Urbina PGY1 <Elda ESPINOZA,Cameron - Last Filed: 03/20/17 18:07> Objective - Vital Signs/Intake and Output Vital Signs (last 24 hours): Temp Pulse Resp BP Pulse Ox 97.9 F 50 L 12 123/59 L 99 03/20/17 12:00 03/20/17 16:00 03/20/17 14:30 03/20/17 16:00 03/20/17 14:30 - Medications Medications: Current Medications Atorvastatin Calcium (Lipitor) 20 mg PO DIN [facility] Last Admin: 03/19/17 17:44 Dose: 20 mg Gabapentin (Neurontin) 300 mg PO DAILY [facility] PRN Reason: Protocol Last Admin: 03/20/17 10:09 Dose: 300 mg Gemfibrozil (Lopid) 600 mg PO BID [facility] Last Admin: 03/20/17 10:09 Dose: 600 mg Hydromorphone HCl (Dilaudid) 1 mg IVP Q4H PRN PRN Reason: Pain, Mild (1-3) Last Admin: 03/20/17 14:42 Dose: 1 mg Sodium Chloride (Sodium Chloride 0.9%) 1,000 mls @ 150 mls/hr IV .Q6H40M [facility] Last Admin: 03/20/17 10:13 Dose: 150 mls/hr Insulin Detemir (Levemir) 15 unit SC DAILY [facility] Last Admin: 03/20/17 10:03 Dose: 15 unit Insulin Human Lispro (Humalog High) 0 units SC ACHS [facility] PRN Reason: Protocol Last Admin: 03/20/17 16:52 Dose: 4 units Nadolol (Corgard) 20 mg PO DAILY [facility] Last Admin: 03/20/17 10:02 Dose: Not Given Lipase/Protease/Amylase [Kiel Leal 36 ,000 Units] Home Med 1 each PO TID [facility] Last Admin: 03/20/17 13:16 Dose: Not Given Zzmif-7-Abhv Ethyl Esters (Lovaza) 2 gm PO BID [facility] Last Admin: 03/20/17 10:09 Dose: 2 gm Ondansetron HCl (Zofran Inj) 4 mg IVP Q6H PRN PRN Reason: n/v Last Admin: 03/20/17 12:09 Dose: 4 mg Pantoprazole Sodium (Protonix Inj) 40 mg IVP DAILY [facility] Last Admin: 03/20/17 09:55 Dose: 40 mg Polyethylene Glycol (Miralax) 17 gm PO DAILY PRN PRN Reason: Constipation - Labs Labs: 03/20/17 12:00 Attending/Attestation - Attestation I have personally seen and examined this patient.: Yes I have fully participated in the care of the patient.: Yes I have reviewed all pertinent clinical information, including history, physical exam and plan: Yes Notes (Text): 03/20/17 18:04 Patient was seen and examined with biomedical engineering internship .Agreed with resident assessment and plan. 42 yo with h/o chronic pancreatitis and Hepc and congenital hypertriglyceridemia , who came with abdo pain, N/V and was found to have TG more then 1400, was transferred to ICU for insulin drip, off insulin drip now, triglyceride level is 336, patient is off insulin drip now , still having abdominal pain but tolerating clear liquid, slowly improving, we will continue monitoring. Management plan was discussed in detail with patient Education was provided. 03/20/17 18:07
--- NOTE | 2017-03-20 14:35 | CP.CCUPN ---
<MARGARITO NUR - Last Filed: 03/20/17 15:39> CCU Subjective - Physician Review Events Since Last Encounter (Free Text): Patient seen and examined at bedside. Pt c/o nausea overnight, requiring zofran. 03/20/17 14:30 03/20/17 14:33 Subjective (Free Text): Pt has improving RUQ pain, radiating to the back and the epigastrium. He states that he is hungry today with mild nausea. Denies fever, chills, vomiting, chest pain, diaphroesis, urinary frequency. 03/20/17 14:33 CCU Objective - Vital Signs / Intake & Output Vital Signs (Last 4 hours): Vital Signs Temp Pulse Resp BP Pulse Ox 03/20/17 12:46 98 03/20/17 12:30 61 100 03/20/17 12:00 97.9 F 63 11 L 100 03/20/17 11:30 52 L 12 100 03/20/17 11:00 51 L 10 L 113/40 L 100 - Physical Exam Physical Exam Limitations: Negative for: Altered Mental Status Head: Positive for: Atraumatic, Normocephalic Pupils: Positive for: PERRL Extroacular Muscles: Positive for: EOMI Conjunctiva: Positive for: Normal Mouth: Positive for: Moist Mucous Membranes Pharnyx: Positive for: Normal. Negative for: ERYTHEMA Neck: Positive for: Normal Range of Motion Respiratory/Chest: Positive for: Clear to Auscultation, Good Air Exchange. Negative for: Respiratory Distress, Accessory Muscle Use Cardiovascular: Positive for: Normal S1, S2, Bradycardic. Negative for: Murmurs , Rub, Gallop Abdomen: Positive for: Tenderness (Diffuse abdominal tenderness), Normal Bowel Sounds, Scars. Negative for: Distention, Peritoneal Signs, Guarding Lower Extremity: Negative for: Edema, CALF TENDERNESS Neurological: Positive for: GCS=15, CN II-XII Intact, Speech Normal Skin: Positive for: Warm, Dry, Normal Color. Negative for: Rashes Psychiatric: Positive for: Alert, Oriented x 3, Normal Mood - Medications Active Medications: Active Medications Generic Name Dose Route Start Last Admin Trade Name Freq PRN Reason Stop Dose Admin Atorvastatin Calcium 20 mg 03/19/17 17:00 03/19/17 17:44 Lipitor PO 20 mg DIN DO Administration Gabapentin 300 mg 03/19/17 10:00 03/20/17 10:09 Neurontin PO 300 mg DAILY DO Administration Protocol Gemfibrozil 600 mg 03/19/17 10:00 03/20/17 10:09 Lopid PO 600 mg BID DO Administration Hydromorphone HCl 1 mg 03/19/17 06:19 03/20/17 10:23 Dilaudid IVP 1 mg Q4H PRN Administration Pain, Mild (1-3) Sodium Chloride 1,000 mls @ 150 mls/hr 03/20/17 10:00 03/20/17 10:13 Sodium Chloride 0.9% IV 150 mls/hr .Q6H40M DO Administration Insulin Detemir 15 unit 03/20/17 10:00 03/20/17 10:03 Levemir SC 15 unit DAILY DO Administration Insulin Human Lispro 0 units 03/19/17 11:30 03/20/17 12:08 Humalog High SC 4 units ACHS DO Administration Protocol Nadolol 20 mg 03/19/17 15:30 03/20/17 10:02 Corgard PO Not Given DAILY [facility] Lipase/Protease/ 1 each 03/19/17 10:00 03/20/17 13:16 Amylase [Creon Dr 36 PO Not Given ,000 Units] Home TID [facility] Med Pkmyp-1-Mjxq Ethyl Esters 2 gm 03/19/17 10:00 03/20/17 10:09 Lovaza PO 2 gm BID DO Administration Ondansetron HCl 4 mg 03/19/17 06:13 03/20/17 12:09 Zofran Inj IVP 4 mg Q6H PRN Administration n/v Pantoprazole Sodium 40 mg 03/19/17 10:00 03/20/17 09:55 Protonix Inj IVP 40 mg DAILY DO Administration Polyethylene Glycol 17 gm 03/19/17 06:16 Miralax PO DAILY PRN Constipation - Patient Studies Lab Studies: Lab Studies 03/20/17 03/20/17 03/20/17 Range/Units 12:00 11:09 08:00 Sodium 135 (132-148) mmol/L Potassium 3.9 (3.6-5.0) mmol/L Chloride 102 (98-107) mmol/L Carbon Dioxide 24 (21-33) mmol/L Anion Gap 13 (10-20) BUN 6 L (7-21) mg/dL Creatinine 0.5 (0.5-1.4) mg/dL Est GFR ( Amer) > 60 Est GFR (Non-Af Amer) > 60 POC Glucose (mg/dL) 220 H 151 H (65-110) mg/dL Random Glucose 261 H (70-110) mg/dL Calcium 8.2 L (8.4-10.5) mg/dL Triglycerides 336 H (35-160) mg/dL 03/20/17 Range/Units 08:00 Sodium 138 (132-148) mmol/L Potassium 4.2 (3.6-5.0) mmol/L Chloride 103 (98-107) mmol/L Carbon Dioxide 26 (21-33) mmol/L Anion Gap 13 (10-20) BUN 7 (7-21) mg/dL Creatinine 0.5 (0.5-1.4) mg/dL Est GFR ( Amer) > 60 Est GFR (Non-Af Amer) > 60 POC Glucose (mg/dL) (65-110) mg/dL Random Glucose 133 H (70-110) mg/dL Calcium 8.3 L (8.4-10.5) mg/dL Triglycerides 334 H (35-160) mg/dL Laboratory Results - last 24 hr 03/20/17 03/20/17 03/20/17 08:00 08:00 11:09 Sodium 138 Potassium 4.2 Chloride 103 Carbon Dioxide 26 Anion Gap 13 BUN 7 Creatinine 0.5 Est GFR ( Amer) > 60 Est GFR (Non-Af Amer) > 60 POC Glucose (mg/dL) 151 H 220 H Random Glucose 133 H Calcium 8.3 L Triglycerides 334 H 03/20/17 12:00 Sodium 135 Potassium 3.9 Chloride 102 Carbon Dioxide 24 Anion Gap 13 BUN 6 L Creatinine 0.5 Est GFR ( Amer) > 60 Est GFR (Non-Af Amer) > 60 POC Glucose (mg/dL) Random Glucose 261 H Calcium 8.2 L Triglycerides 336 H Fingerstick Blood Sugar Results: 220 Review of Systems - Constitutional Constitutional: absent: Fever, Chills - Gastrointestinal Gastrointestinal: Abdominal Pain Critical Care Progress Note - Ventilator Checklist Head of Bed 30 Degrees: Yes - Extremities/Vascular Does the Patient have a Central Venous Catheter?: No Assessment/Plan - Assessment and Plan (Free Text) Assessment: This is a 42 yo M with hx of chronic pancreatitis, that p/w abdominal pain, likely due to acute pancreatitis 2/2 hypertriglyceridemia. Pt received Regular insulin drip x24h, with triglycerides trending down 1479 ->500's->339, improved abdominal pain, and advancing diet today. Also, switched IV insulin to subq. Plan: Neuro: A&Ox3. No change in mental status. No seizures. CV: Bardycardic HR 50's. Cont to monitor. Hemodynamically stable On NS Will start liquid diet today. Pulm: On RA. Saturating well. Maintain spO2>92% GI: Will resume to clear diet today. Advance as tolerated. Continue to monitor abdominal exam and any worsening signs. Triglycerides 334. Will stop insulin drip and switch to SQ Levemir insulin. Lipase 48. Neprho: Will continue to monitor electrolytes and will replace as needed Monitor I&O Maintain euvolemia Heme: Hgb stable- no overt signs of bleeding, no thrombocytopenia ID: Maintain normothermia No fever, no leukocytosis. Endo: Maintain euglycemia GI ppx: Protonix DVT ppx: SCDs Case seen, discussed and reviewed with attending Monique Nur PGY1 <Allan Sanchez - Last Filed: 03/20/17 16:52> CCU Objective - Vital Signs / Intake & Output Vital Signs (Last 4 hours): Vital Signs Pulse Resp BP Pulse Ox 03/20/17 16:00 50 L 123/59 L 03/20/17 15:56 107/60 03/20/17 14:30 53 L 12 99 03/20/17 14:00 62 13 98 03/20/17 13:30 60 13 98 03/20/17 13:00 58 L 15 100 03/20/17 12:46 98 - Medications Active Medications: Active Medications Generic Name Dose Route Start Last Admin Trade Name Freq PRN Reason Stop Dose Admin Atorvastatin Calcium 20 mg 03/19/17 17:00 03/19/17 17:44 Lipitor PO 20 mg DIN DO Administration Gabapentin 300 mg 03/19/17 10:00 03/20/17 10:09 Neurontin PO 300 mg DAILY DO Administration Protocol Gemfibrozil 600 mg 03/19/17 10:00 03/20/17 10:09 Lopid PO 600 mg BID DO Administration Hydromorphone HCl 1 mg 03/19/17 06:19 03/20/17 14:42 Dilaudid IVP 1 mg Q4H PRN Administration Pain, Mild (1-3) Sodium Chloride 1,000 mls @ 150 mls/hr 03/20/17 10:00 03/20/17 10:13 Sodium Chloride 0.9% IV 150 mls/hr .Q6H40M DO Administration Insulin Detemir 15 unit 03/20/17 10:00 03/20/17 10:03 Levemir SC 15 unit DAILY DO Administration Insulin Human Lispro 0 units 03/19/17 11:30 03/20/17 12:08 Humalog High SC 4 units ACHS DO Administration Protocol Nadolol 20 mg 03/19/17 15:30 03/20/17 10:02 Corgard PO Not Given DAILY DO Lipase/Protease/ 1 each 03/19/17 10:00 03/20/17 13:16 Amylase [Kiel Leal 36 PO Not Given ,000 Units] Home T[facility] Med Dvael-9-Ramo Ethyl Esters 2 gm 03/19/17 10:00 03/20/17 10:09 Lovaza PO 2 gm BID DO Administration Ondansetron HCl 4 mg 03/19/17 06:13 03/20/17 12:09 Zofran Inj IVP 4 mg Q6H PRN Administration n/v Pantoprazole Sodium 40 mg 03/19/17 10:00 03/20/17 09:55 Protonix Inj IVP 40 mg DAILY DO Administration Polyethylene Glycol 17 gm 03/19/17 06:16 Miralax PO DAILY PRN Constipation - Patient Studies Lab Studies: Lab Studies 03/20/17 03/20/17 03/20/17 Range/Units 12:00 11:09 08:00 Sodium 135 (132-148) mmol/L Potassium 3.9 (3.6-5.0) mmol/L Chloride 102 (98-107) mmol/L Carbon Dioxide 24 (21-33) mmol/L Anion Gap 13 (10-20) BUN 6 L (7-21) mg/dL Creatinine 0.5 (0.5-1.4) mg/dL Est GFR ( Amer) > 60 Est GFR (Non-Af Amer) > 60 POC Glucose (mg/dL) 220 H 151 H (65-110) mg/dL Random Glucose 261 H (70-110) mg/dL Calcium 8.2 L (8.4-10.5) mg/dL Triglycerides 336 H (35-160) mg/dL 03/20/17 Range/Units 08:00 Sodium 138 (132-148) mmol/L Potassium 4.2 (3.6-5.0) mmol/L Chloride 103 (98-107) mmol/L Carbon Dioxide 26 (21-33) mmol/L Anion Gap 13 (10-20) BUN 7 (7-21) mg/dL Creatinine 0.5 (0.5-1.4) mg/dL Est GFR ( Amer) > 60 Est GFR (Non-Af Amer) > 60 POC Glucose (mg/dL) (65-110) mg/dL Random Glucose 133 H (70-110) mg/dL Calcium 8.3 L (8.4-10.5) mg/dL Triglycerides 334 H (35-160) mg/dL Laboratory Results - last 24 hr 03/20/17 03/20/17 03/20/17 08:00 08:00 11:09 Sodium 138 Potassium 4.2 Chloride 103 Carbon Dioxide 26 Anion Gap 13 BUN 7 Creatinine 0.5 Est GFR ( Amer) > 60 Est GFR (Non-Af Amer) > 60 POC Glucose (mg/dL) 151 H 220 H Random Glucose 133 H Calcium 8.3 L Triglycerides 334 H 03/20/17 12:00 Sodium 135 Potassium 3.9 Chloride 102 Carbon Dioxide 24 Anion Gap 13 BUN 6 L Creatinine 0.5 Est GFR ( Amer) > 60 Est GFR (Non-Af Amer) > 60 POC Glucose (mg/dL) Random Glucose 261 H Calcium 8.2 L Triglycerides 336 H Attending/Attestation - Attestation I have personally seen and examined this patient.: Yes I have fully participated in the care of the patient.: Yes I have reviewed all pertinent clinical information: Yes Notes (Text): 03/20/17 16:30 42 yo male with acute pancreatitis secondary to severe hypertriglyceridemia. Patient refused plasmapheresis, started on insulin drip and now his TG level is 300s. Pain improved, will start liwuid oral diet. Lopid and endo consult. dvt/ gi prophylaxis
[2017-03-21] MEDS: HYDROmorphone 1 mg/ml ISec IVP PRN ×5 (03:36→20:31)
[2017-03-21 08:11] LABS: HEMOGLOBIN 11.7 gm/dL (14.0-18.0); MEAN CELL VOLUME 77.5 fL (80.0-105.0); MEAN CORPUSCULAR HEMOGLOBIN 25.8 pg (25.0-35.0); MEAN CORPUSCULAR HGB CONC 33.2 g/dl (31.0-37.0); MEAN PLATELET VOLUME 11.4 fl (7.0-11.0); RBC 4.54 10^6/uL (3.5-6.1); RED CELL DISTRIBUTION WIDTH 14.8 % (11.5-14.5)
[2017-03-21 08:27] LABS: ALB/GLOB RATIO 1.1 (1.1-1.8); ALBUMIN 3.3 g/dL (3.0-4.8); ALT/SGPT 29 U/L (7-56); AST/SGOT 29 U/L (15-59); BLOOD UREA NITROGEN 5 mg/dL (7-21); CALCIUM 8.5 mg/dL (8.4-10.5); GFR AFRICAN-AMERICAN > 60; GFR NON-AFRICAN AMERICAN > 60; HDL CHOLESTEROL 20 mg/dL (29-60); LIPASE 15 U/L (23-300)
[2017-03-21 08:29] LABS: WHITE BLOOD COUNT 2.8 10^3/ul (4.5-11.0)
[2017-03-21 08:38] LABS: LDL CHOLESTEROL 60 mg/dL (0-129)
[2017-03-21] MEDS: Insulin Lispro (HUMAlog) HIGH Coverage SC SCH ×2 (08:39→12:13)
[2017-03-21] MEDS: Omega-3-Acid Ethyl Esters 1 GM Cap PO SCH ×2 (10:45→17:11)
[2017-03-21] MEDS: PROTEASE PO SCH ×3 (10:46→17:05)
[2017-03-21] MEDS: Insulin Detemir 100 units/ml Vial (Levemir) SC SCH (10:46)
[2017-03-21] MEDS: LIPASE PO SCH ×3 (10:46→17:05)
[2017-03-21] MEDS: AMYLASE PO SCH ×3 (10:46→17:05)
--- NOTE | 2017-03-21 14:18 | CP.PCM.PN ---
<Vani Urbina - Last Filed: 03/21/17 14:23> Subjective - Date & Time of Evaluation Date of Evaluation: 03/21/17 Time of Evaluation: 07:45 - Subjective Subjective: Patient has been seen and examined at bedside. There were no overnight events. Patient states improvement of his Nausea and RUQ pain that radiated to back and epigastrium. Patient Denies any fever, chills, SOB, or palpitations. Patient reported that he is hungry and wishes to eat solid food. Objective - Vital Signs/Intake and Output Vital Signs (last 24 hours): Temp Pulse Resp BP Pulse Ox 97.6 F 59 L 18 133/85 99 03/21/17 08:07 03/21/17 10:45 03/21/17 08:07 03/21/17 10:45 03/21/17 08:07 Intake and Output: 03/21/17 03/21/17 06:59 18:59 Intake Total 1080 Balance 1080 - Medications Medications: Current Medications Atorvastatin Calcium (Lipitor) 20 mg PO DIN [facility] Last Admin: 03/20/17 18:00 Dose: 20 mg Gabapentin (Neurontin) 300 mg PO DAILY [facility] PRN Reason: Protocol Last Admin: 03/21/17 10:46 Dose: 300 mg Gemfibrozil (Lopid) 600 mg PO BID [facility] Last Admin: 03/21/17 10:46 Dose: 600 mg Hydromorphone HCl (Dilaudid) 1 mg IVP Q4H PRN PRN Reason: Pain, Mild (1-3) Last Admin: 03/21/17 12:13 Dose: 1 mg Sodium Chloride (Sodium Chloride 0.9%) 1,000 mls @ 150 mls/hr IV .Q6H40M [facility] Last Admin: 03/20/17 10:13 Dose: 150 mls/hr Insulin Human Lispro (Humalog Low) 0 units SC ACHS [facility] PRN Reason: Protocol Nadolol (Corgard) 20 mg PO DAILY [facility] Last Admin: 03/21/17 10:45 Dose: 20 mg Lipase/Protease/Amylase [Kiel Leal 36 ,000 Units] Home Med 1 each PO TID [facility] Last Admin: 03/21/17 10:46 Dose: 1 each Aazcr-0-Grad Ethyl Esters (Lovaza) 2 gm PO BID [facility] Last Admin: 03/21/17 10:45 Dose: 2 gm Ondansetron HCl (Zofran Inj) 4 mg IVP Q6H PRN PRN Reason: n/v Last Admin: 03/21/17 07:29 Dose: 4 mg Pantoprazole Sodium (Protonix Inj) 40 mg IVP DAILY DO Last Admin: 03/21/17 10:46 Dose: 40 mg Polyethylene Glycol (Miralax) 17 gm PO DAILY PRN PRN Reason: Constipation - Labs Labs: 03/21/17 08:05 03/21/17 08:05 - Constitutional Appears: Well, Non-toxic - Head Exam Head Exam: ATRAUMATIC, NORMOCEPHALIC - Eye Exam Eye Exam: EOMI, Normal appearance - ENT Exam ENT Exam: Mucous Membranes Moist - Respiratory Exam Respiratory Exam: Clear to Ausculation Bilateral - Cardiovascular Exam Cardiovascular Exam: +S1, +S2. absent: JVD, Murmur - GI/Abdominal Exam GI & Abdominal Exam: Soft, Tenderness, Hyperactive Bowel Sounds Additional comments: RUQ Tenderness - Neurological Exam Neurological Exam: Alert, Awake, Oriented x3 - Psychiatric Exam Psychiatric exam: Normal Affect, Normal Mood - Skin Skin Exam: Intact Assessment and Plan - Assessment and Plan (Free Text) Assessment: 42 yo with h/o chronic pancreatitis and Hep C and congenital hypertriglyceridemia, who came with abdominal pain, N/V and was found to have TG more then 1400, was transferred to ICU for insulin drip, off insulin drip now , triglyceride level is 225, patient is off insulin drip now , still having abdominal pain but states major improvement. Patient tolerating clear liquid, slowly improving, we will continue monitoring. Plan: 1. Pancreatitis 2/2 Hypertryclycerdemia. (Improving) - Advance to solid diet - Monitor abdominal exam for worsening symptoms -Cont. IV Fluids -Pain management (Dilaudid) 2.Hypertryglycerdemia - (Improving - down to 225) -Lipitor, Lopid, Lovaza 3. Diabetes - Cont.SQ Levemir insulin - BLood Glucose Monitoring on ISS 4. GI Proph - Protonix 5. DVT proph -SCD Case seen and discussed with attending. Vani Urbina - Pager # - [phone] <Sushila Jarvis - Last Filed: 03/21/17 16:29> Objective - Vital Signs/Intake and Output Vital Signs (last 24 hours): Temp Pulse Resp BP Pulse Ox 97.6 F 59 L 18 133/85 99 03/21/17 08:07 03/21/17 10:45 03/21/17 08:07 03/21/17 10:45 03/21/17 08:07 Intake and Output: 03/21/17 03/21/17 06:59 18:59 Intake Total 1080 960 Balance 1080 960 - Medications Medications: Current Medications Atorvastatin Calcium (Lipitor) 20 mg PO DIN [facility] Last Admin: 03/20/17 18:00 Dose: 20 mg Gabapentin (Neurontin) 300 mg PO DAILY [facility] PRN Reason: Protocol Last Admin: 03/21/17 10:46 Dose: 300 mg Gemfibrozil (Lopid) 600 mg PO BID [facility] Last Admin: 03/21/17 10:46 Dose: 600 mg Hydromorphone HCl (Dilaudid) 1 mg IVP Q4H PRN PRN Reason: Pain, Mild (1-3) Last Admin: 03/21/17 12:13 Dose: 1 mg Sodium Chloride (Sodium Chloride 0.9%) 1,000 mls @ 150 mls/hr IV .Q6H40M [facility] Last Admin: 03/20/17 10:13 Dose: 150 mls/hr Insulin Human Lispro (Humalog Low) 0 units SC ACHS [facility] PRN Reason: Protocol Nadolol (Corgard) 20 mg PO DAILY [facility] Last Admin: 03/21/17 10:45 Dose: 20 mg Lipase/Protease/Amylase [Kiel Leal 36 ,000 Units] Home Med 1 each PO TID [facility] Last Admin: 03/21/17 10:46 Dose: 1 each Mysvq-4-Lcyy Ethyl Esters (Lovaza) 2 gm PO BID [facility] Last Admin: 03/21/17 10:45 Dose: 2 gm Ondansetron HCl (Zofran Inj) 4 mg IVP Q6H PRN PRN Reason: n/v Last Admin: 03/21/17 07:29 Dose: 4 mg Pantoprazole Sodium (Protonix Inj) 40 mg IVP DAILY [facility] Last Admin: 03/21/17 10:46 Dose: 40 mg Polyethylene Glycol (Miralax) 17 gm PO DAILY PRN PRN Reason: Constipation - Labs Labs: 03/21/17 08:05 03/21/17 08:05 Attending/Attestation - Attestation I have personally seen and examined this patient.: Yes I have fully participated in the care of the patient.: Yes I have reviewed all pertinent clinical information, including history, physical exam and plan: Yes Notes (Text): I have seen and examined patient at bedside with the resident. Agree with the above note with the following additions/ exceptions: Briefly this is 42 year old male with history of chronic pancreatitis, hypertriglyceridemia, IDDM, multiple pancreatic pseudosyst resection, cholecystectomy, appendectomy and known & untreated Hep C who was admitted for hypertriglyceridemia induced pancreatitis which was improved with insulin drip. Patient has been tolerating liquid diet and is requesting for diet to be advanced. Will monitor patient closely. Plan to dc in 24 hours. Upon discharge patient will follow up in [facility] clinic. Dr Sushila Jarvis
[2017-03-21] MEDS: Insulin Lispro (humaLOG) LOW Coverage SC SCH ×2 (17:05→22:00)
[2017-03-21] MEDS: Insulin Human NPH/Reg 70/30 Vial(3 ml) SC SCH (17:11)
[2017-03-21] MEDS: Sodium Chloride 0.9% 1,000 ML IV SCH ×2 (17:45→20:32)
[2017-03-22] MEDS: HYDROmorphone 1 mg/ml ISec IVP PRN ×2 (00:28→06:44)
[2017-03-22] MEDS: Pantoprazole 40 mg EC Tab PO SCH (06:44)
[2017-03-22 07:09] LABS: HEMOGLOBIN 11.8 gm/dL (14.0-18.0); MEAN CELL VOLUME 77.2 fL (80.0-105.0); MEAN CORPUSCULAR HEMOGLOBIN 25.6 pg (25.0-35.0); MEAN CORPUSCULAR HGB CONC 33.1 g/dl (31.0-37.0); MEAN PLATELET VOLUME 11.1 fl (7.0-11.0); RBC 4.61 10^6/uL (3.5-6.1); RED CELL DISTRIBUTION WIDTH 14.6 % (11.5-14.5); WHITE BLOOD COUNT 3.6 10^3/ul (4.5-11.0)
[2017-03-22 07:19] LABS: ALB/GLOB RATIO 1.1 (1.1-1.8); ALBUMIN 3.4 g/dL (3.0-4.8); ALT/SGPT 33 U/L (7-56); AST/SGOT 32 U/L (15-59); BLOOD UREA NITROGEN 7 mg/dL (7-21); CALCIUM 8.6 mg/dL (8.4-10.5); GFR AFRICAN-AMERICAN > 60; GFR NON-AFRICAN AMERICAN > 60
[2017-03-22 08:13] VITALS: RESP 20
[2017-03-22] MEDS: Insulin Human NPH/Reg 70/30 Vial(3 ml) SC SCH ×2 (08:23→18:20)
[2017-03-22] MEDS: Insulin Lispro (humaLOG) LOW Coverage SC SCH ×3 (08:23→23:05)
[2017-03-22] MEDS ORDERED: HYDROmorphone 1 mg/ml ISec IVP PRN (08:41)
[2017-03-22] MEDS: Omega-3-Acid Ethyl Esters 1 GM Cap PO SCH ×2 (10:10→18:20)
[2017-03-22] MEDS: Sodium Chloride 0.9% 1,000 ML IV SCH (10:12)
[2017-03-22] MEDS: PROTEASE PO SCH ×3 (10:12→18:22)
[2017-03-22] MEDS: AMYLASE PO SCH ×3 (10:12→18:22)
[2017-03-22] MEDS: LIPASE PO SCH ×3 (10:12→18:22)
[2017-03-22] MEDS ORDERED: POLYETHYLENE GLYCOL 3350 17 GM/Dose PACKET PO STA (13:42)
[2017-03-22] MEDS: HYDROmorphone 0.5 mg/0.5 ml ISec SC PRN ×2 (14:10→21:37)
--- NOTE | 2017-03-22 16:29 | CP.PCM.PN ---
<Vani Urbina - Last Filed: 03/22/17 16:39> Subjective - Date & Time of Evaluation Date of Evaluation: 03/22/17 Time of Evaluation: 08:35 - Subjective Subjective: Patient has been seen and examined at bedside. There were no overnight events. Patient states improvement of his Nausea but no improvement in RUQ pain that radiated to back and epigastrium. Patient Denies any fever, SOB, or palpitations. Patient did complain of dysuria. Objective - Vital Signs/Intake and Output Vital Signs (last 24 hours): Temp Pulse Resp BP Pulse Ox 97.7 F 62 20 114/68 99 03/22/17 07:30 03/22/17 10:11 03/22/17 07:30 03/22/17 10:11 03/22/17 07:30 Intake and Output: 03/22/17 03/22/17 06:59 18:59 Intake Total 1080 760 Balance 1080 760 - Medications Medications: Current Medications Atorvastatin Calcium (Lipitor) 20 mg PO DIN [facility] Last Admin: 03/21/17 17:04 Dose: 20 mg Gabapentin (Neurontin) 300 mg PO DAILY [facility] PRN Reason: Protocol Last Admin: 03/22/17 10:11 Dose: 300 mg Gemfibrozil (Lopid) 600 mg PO BID [facility] Last Admin: 03/22/17 10:11 Dose: 600 mg Hydromorphone HCl (Dilaudid) 0.5 mg SC Q6H PRN PRN Reason: Pain, severe (8-10) Last Admin: 03/22/17 14:10 Dose: 0.5 mg Sodium Chloride (Sodium Chloride 0.9%) 1,000 mls @ 150 mls/hr IV .Q6H40M [facility] Last Admin: 03/22/17 10:12 Dose: 150 mls/hr Insulin Human Lispro (Humalog Low) 0 units SC ACHS [facility] PRN Reason: Protocol Last Admin: 03/22/17 08:23 Dose: Not Given Nadolol (Corgard) 20 mg PO DAILY [facility] Last Admin: 03/22/17 10:11 Dose: 20 mg Lipase/Protease/Amylase [Kiel Dr 36 ,000 Units] Home Med 1 each PO TID [facility] Last Admin: 03/22/17 14:10 Dose: 1 each Gszua-0-Cxqe Ethyl Esters (Lovaza) 2 gm PO BID [facility] Last Admin: 03/22/17 10:10 Dose: 2 gm Ondansetron HCl (Zofran Inj) 4 mg IVP Q6H PRN PRN Reason: n/v Last Admin: 03/22/17 15:07 Dose: 4 mg Pantoprazole Sodium (Protonix Ec Tab) 40 mg PO 0600 [facility] Last Admin: 03/22/17 06:44 Dose: 40 mg Polyethylene Glycol (Miralax) 17 gm PO DAILY PRN PRN Reason: Constipation - Labs Labs: 03/22/17 06:30 03/22/17 06:30 - Constitutional Appears: No Acute Distress - Head Exam Head Exam: ATRAUMATIC, NORMOCEPHALIC - Eye Exam Eye Exam: EOMI - ENT Exam ENT Exam: Mucous Membranes Moist - Neck Exam Neck Exam: absent: Lymphadenopathy - Respiratory Exam Respiratory Exam: Clear to Ausculation Bilateral. absent: Rales, Rhonchi, Wheezes, Respiratory Distress, Stridor - Cardiovascular Exam Cardiovascular Exam: +S1. absent: Murmur - GI/Abdominal Exam GI & Abdominal Exam: Soft, Hyperactive Bowel Sounds Assessment and Plan - Assessment and Plan (Free Text) Assessment: 42 yo with h/o chronic pancreatitis and Hep C and congenital hypertriglyceridemia, who came with abdominal pain, N/V and was found to have TG more then 1400, was transferred to ICU for insulin drip, off insulin drip now , triglyceride level is now 210, patient is off insulin drip now , still having abdominal pain but states major improvement. Patient tolerating solid diet. We will plan for discharge tomorrow pending urinalysis results. Plan: 1. Pancreatitis 2/2 Hypertryclycerdemia. (Improving) - Tolerating solid diet - Monitor abdominal exam for worsening symptoms -Cont. IV Fluids -Pain management (Dilaudid .5mg Q6 PRN) 2.Hypertryglycerdemia - (Improving - down to 210) -Lipitor, Lopid, Lovaza 3. Diabetes - Cont.SQ Levemir insulin - BLood Glucose Monitoring on ISS 4. Constipation -Miralax 5. Dysuria -Urinalysis 5. GI Proph - Protonix 6. DVT proph -SCD Patient has been seen, discussed and reviewed with Attending Vani Urbina PGY1 Pager - <Sushila Jarvis B - Last Filed: 03/23/17 14:37> Objective - Vital Signs/Intake and Output Vital Signs (last 24 hours): Temp Pulse Resp BP Pulse Ox 98.4 F 52 L 20 117/67 99 03/22/17 16:28 03/22/17 16:28 03/22/17 16:28 03/22/17 16:28 03/22/17 16:28 Intake and Output: 03/22/17 03/22/17 06:59 18:59 Intake Total 1080 760 Balance 1080 760 - Medications Medications: Current Medications Atorvastatin Calcium (Lipitor) 20 mg PO DIN [facility] Last Admin: 03/21/17 17:04 Dose: 20 mg Gabapentin (Neurontin) 300 mg PO DAILY [facility] PRN Reason: Protocol Last Admin: 03/22/17 10:11 Dose: 300 mg Gemfibrozil (Lopid) 600 mg PO BID [facility] Last Admin: 03/22/17 10:11 Dose: 600 mg Hydromorphone HCl (Dilaudid) 0.5 mg SC Q6H PRN PRN Reason: Pain, severe (8-10) Last Admin: 03/22/17 14:10 Dose: 0.5 mg Sodium Chloride (Sodium Chloride 0.9%) 1,000 mls @ 150 mls/hr IV .Q6H40M [facility] Last Admin: 03/22/17 10:12 Dose: 150 mls/hr Insulin Human Lispro (Humalog Low) 0 units SC ACHS [facility] PRN Reason: Protocol Last Admin: 03/22/17 08:23 Dose: Not Given Nadolol (Corgard) 20 mg PO DAILY [facility] Last Admin: 03/22/17 10:11 Dose: 20 mg Lipase/Protease/Amylase [Kiel Leal 36 ,000 Units] Home Med 1 each PO TID [facility] Last Admin: 03/22/17 14:10 Dose: 1 each Gcpmn-2-Vefu Ethyl Esters (Lovaza) 2 gm PO BID [facility] Last Admin: 03/22/17 10:10 Dose: 2 gm Ondansetron HCl (Zofran Inj) 4 mg IVP Q6H PRN PRN Reason: n/v Last Admin: 03/22/17 15:07 Dose: 4 mg Pantoprazole Sodium (Protonix Ec Tab) 40 mg PO 0600 [facility] Last Admin: 03/22/17 06:44 Dose: 40 mg Polyethylene Glycol (Miralax) 17 gm PO DAILY PRN PRN Reason: Constipation - Labs Labs: 03/22/17 06:30 03/22/17 06:30 Attending/Attestation - Attestation I have personally seen and examined this patient.: Yes I have fully participated in the care of the patient.: Yes I have reviewed all pertinent clinical information, including history, physical exam and plan: Yes Notes (Text): I have seen and examined patient at bedside with the resident. Agree with the above note with the following additions/ exceptions: Briefly this is 42 year old male with history of chronic pancreatitis, hypertriglyceridemia, IDDM, multiple pancreatic pseudocyst resection, cholecystectomy, appendectomy and known & untreated Hep C who was admitted for hypertriglyceridemia induced pancreatitis which was improved with insulin drip. Patient has been tolerating diet however complains of dizziness, constipation and diaphoresis while straining to defecate. Will start miralax. Advised the patient that we will taper narcotics which is most likely causing constipation. Will monitor patient closely. Plan to dc in 24 hours. Upon discharge patient will follow up in [facility] clinic. Dr Sushila Jarvis
[2017-03-22 19:21] LABS: URINE BILIRUBIN NEGATIVE (NEGATIVE); URINE BLOOD NEGATIVE (NEGATIVE); URINE GLUCOSE (UA) NEGATIVE (NEGATIVE); URINE LEUKOCYTE ESTERASE NEGATIVE Leu/uL (NEGATIVE); URINE NITRATE NEGATIVE (NEGATIVE); URINE PROTEIN NEGATIVE mg/dL (<30 mg/dL)
[2017-03-22 19:22] LABS: URINE APPEARANCE CLEAR (CLEAR); URINE COLOR YELLOW (YELLOW)
[2017-03-23] MEDS: HYDROmorphone 0.5 mg/0.5 ml ISec SC PRN (03:02)
[2017-03-23] MEDS: Pantoprazole 40 mg EC Tab PO SCH (05:46)
[2017-03-23 07:37] LABS: HEMOGLOBIN 11.6 gm/dL (14.0-18.0); MEAN CELL VOLUME 77.1 fL (80.0-105.0); MEAN CORPUSCULAR HEMOGLOBIN 25.6 pg (25.0-35.0); MEAN CORPUSCULAR HGB CONC 33.1 g/dl (31.0-37.0); MEAN PLATELET VOLUME 11.5 fl (7.0-11.0); RBC 4.54 10^6/uL (3.5-6.1); RED CELL DISTRIBUTION WIDTH 14.5 % (11.5-14.5)
[2017-03-23 07:52] LABS: WHITE BLOOD COUNT 2.9 10^3/ul (4.5-11.0)
[2017-03-23 08:06] LABS: ALB/GLOB RATIO 1.1 (1.1-1.8); ALBUMIN 3.3 g/dL (3.0-4.8); ALT/SGPT 30 U/L (7-56); AST/SGOT 22 U/L (15-59); BLOOD UREA NITROGEN 7 mg/dL (7-21); CALCIUM 8.7 mg/dL (8.4-10.5); GFR AFRICAN-AMERICAN > 60; GFR NON-AFRICAN AMERICAN > 60
[2017-03-23] MEDS: Insulin Lispro (humaLOG) LOW Coverage SC SCH ×3 (08:20→16:58)
[2017-03-23] MEDS: Insulin Human NPH/Reg 70/30 Vial(3 ml) SC SCH ×2 (08:22→16:59)
[2017-03-23] MEDS: Sodium Chloride 0.9% 1,000 ML IV SCH (08:26)
[2017-03-23] MEDS: Omega-3-Acid Ethyl Esters 1 GM Cap PO SCH ×2 (09:28→17:03)
[2017-03-23] MEDS: AMYLASE PO SCH ×3 (09:34→17:04)
[2017-03-23] MEDS: PROTEASE PO SCH ×3 (09:34→17:04)
[2017-03-23] MEDS: LIPASE PO SCH ×3 (09:34→17:04)
[2017-03-23] MEDS: HYDROmorphone 0.5 mg/0.5 ml ISec IVP PRN ×2 (09:38→15:49)
--- NOTE | 2017-03-23 15:32 | CP.PCM.DIS ---
<Vani Urbina - Last Filed: 03/23/17 15:13> Provider - Provider Date of Admission: 03/19/17 12:30 Attending physician: Sushila Jarvis MD Primary care physician: Caryl Hightower MD Consults: Keith - Dr. Quentin FONTAINE - Dr. Sullivan Time Spent in preparation of Discharge (in minutes): 35 Hospital Course - Lab Results Lab Results: Micro Results 03/19/17 16:00 Naris MRSA Culture (Admit) - Final MRSA NOT DETECTED Most Recent Lab Values WBC 2.9 10^3/ul (4.5-11.0) L* 03/23/17 07:00 RBC 4.54 10^6/uL (3.5-6.1) 03/23/17 07:00 Hgb 11.6 gm/dL (14.0-18.0) L 03/23/17 07:00 Hct 35.0 % (42.0-52.0) L 03/23/17 07:00 MCV 77.1 fL (80.0-105.0) L 03/23/17 07:00 MCH 25.6 pg (25.0-35.0) 03/23/17 07:00 MCHC 33.1 g/dl (31.0-37.0) 03/23/17 07:00 RDW 14.5 % (11.5-14.5) 03/23/17 07:00 Plt Count 119 10^3/uL (120.0-450.0) L 03/23/17 07:00 MPV 11.5 fl (7.0-11.0) H 03/23/17 07:00 Gran % 38.3 % (50.0-68.0) L 03/20/17 04:00 Lymph % (Auto) 48.8 % (22.0-35.0) H 03/20/17 04:00 [place] % (Auto) 7.0 % (1.0-6.0) H 03/20/17 04:00 Eos % (Auto) 4.8 % (1.5-5.0) 03/20/17 04:00 Baso % (Auto) 1.1 % (0.0-3.0) 03/20/17 04:00 Gran # 1.43 (1.4-6.5) 03/20/17 04:00 Lymph # 1.8 (1.2-3.4) 03/20/17 04:00 [place] # 0.3 (0.1-0.6) 03/20/17 04:00 Eos # 0.2 (0.0-0.7) 03/20/17 04:00 Baso # 0.04 K/mm3 (0.0-2.0) 03/20/17 04:00 Sodium 138 mmol/L (132-148) 03/23/17 07:00 Potassium 3.9 mmol/L (3.6-5.0) 03/23/17 07:00 Chloride 104 mmol/L (98-107) 03/23/17 07:00 Carbon Dioxide 27 mmol/L (21-33) 03/23/17 07:00 Anion Gap 11 (10-20) 03/23/17 07:00 BUN 7 mg/dL (7-21) 03/23/17 07:00 Creatinine 0.7 mg/dL (0.5-1.4) 03/23/17 07:00 Est GFR ( Amer) > 60 03/23/17 07:00 Est GFR (Non-Af Amer) > 60 03/23/17 07:00 POC Glucose (mg/dL) 269 mg/dL (65-110) H 03/23/17 07:29 Random Glucose 230 mg/dL (70-110) H 03/23/17 07:00 Calcium 8.7 mg/dL (8.4-10.5) 03/23/17 07:00 Total Bilirubin 0.6 mg/dL (0.2-1.3) 03/23/17 07:00 AST 22 U/L (15-59) 03/23/17 07:00 ALT 30 U/L (7-56) 03/23/17 07:00 Alkaline Phosphatase 79 U/L (38-133) 03/23/17 07:00 Total Protein 6.4 g/dL (5.8-8.3) 03/23/17 07:00 Albumin 3.3 g/dL (3.0-4.8) 03/23/17 07:00 Globulin 3.1 gm/dL 03/23/17 07:00 Albumin/Globulin Ratio 1.1 (1.1-1.8) 03/23/17 07:00 Triglycerides 204 mg/dL (35-160) H 03/23/17 07:00 Cholesterol 118 mg/dL (130-200) L 03/21/17 08:05 LDL Cholesterol Direct 60 mg/dL (0-129) 03/21/17 08:05 HDL Cholesterol 20 mg/dL (29-60) L 03/21/17 08:05 Lipase 15 U/L (23-300) L 03/21/17 08:05 Urine Color Yellow (YELLOW) 03/22/17 19:00 Urine Appearance Clear (CLEAR) 03/22/17 19:00 Urine pH 7.0 (4.7-8.0) 03/22/17 19:00 Ur Specific [place] 1.015 (1.005-1.035) 03/22/17 19:00 Urine Protein Negative mg/dL (<30 mg/dL) 03/22/17 19:00 Urine Glucose (UA) Negative mg/dL (NEGATIVE) 03/22/17 19:00 Urine Ketones Negative mg/dL (NEGATIVE) 03/22/17 19:00 Urine Blood Negative (NEGATIVE) 03/22/17 19:00 Urine Nitrate Negative (NEGATIVE) 03/22/17 19:00 Urine Bilirubin Negative (NEGATIVE) 03/22/17 19:00 Urine Urobilinogen 1.0 E.U./dL (<1 E.U./dL) H 03/22/17 19:00 Ur Leukocyte Esterase Negative [place]/uL (NEGATIVE) 03/22/17 19:00 - Hospital Course Hospital Course: Patient is a 42 year old male with a PMH of DM, recurrent pancreatitis, untreated Hep C and pancreatic pseudocyst, who came into the ED complaining of abdominal pain. His triglycerides were found to be 1470, and he was diagnosed with Pancreatitis 2/2 to Hypertriglyceridemia. Patient was made NPO at that point and began treatment for Hypertriglyceridemia. During his stay, his diet was slowly advanced to solid foods which he is now tolerating. His Triglycerides is now 204, and his pain is reduced. Patient is to follow up at [facility] clinic upon discharge. Medications and plan have been reviewed with the patient and he is agreeable to it. New Meds: Zofran, Tramadol (50mg TID for 4 days) Studies: Abd/Pelvis CT: Stable findings of biliary duct dilation, splenomegaly, splenic and portal varices. Decreased size of pancreatic pseudocyst. Questionable infectious/inflammatory process at the gastroduodenal junction. Patient has been seen, discussed, and reviewed with attending. Vani Urbina PGY1 - Date & Time of H&P Date of H&P: 03/23/17 Time of H&P: 11:00 Discharge Exam - Head Exam Head Exam: ATRAUMATIC, NORMOCEPHALIC - Eye Exam Eye Exam: EOMI - ENT Exam ENT Exam: Mucous Membranes Moist - Neck Exam Neck exam: Normal Inspection - Respiratory Exam Respiratory Exam: absent: Rales, Rhonchi, Wheezes, Stridor Additional comments: Lungs CTA - Cardiovascular Exam Cardiovascular Exam: RRR, +S1, +S2 - GI/Abdominal Exam GI & Abdominal Exam: Normal Bowel Sounds, Soft. absent: Bruit, Rigid - Extremities Exam Additional comments: No pedal edema - Psychiatric Exam Psychiatric exam: Normal Affect, Normal Mood - Skin Skin Exam: Intact Discharge Plan - Discharge Medications Prescriptions: Atorvastatin [Lipitor] 20 mg PO DIN #14 tab Gemfibrozil [Lopid] 600 mg PO BID #60 tab Lipase/Protease/Amylase [Creon Dr 36,000 Units Capsule] 1 each PO TID #90 [id number]-2-Lqfy Ethyl Esters 1 GM [Lovaza] 2 gm PO BID #56 sgl Ondansetron HCl [Zofran] 4 mg PO Q6H #24 tablet Pantoprazole [Protonix EC Tab] 40 mg PO DAILY #14 ect - Follow Up Plan Condition: STABLE Disposition: HOME/ ROUTINE Instructions: Insulin NPH/Regular (By injection), Pancreatitis (DC), Low Fat Diet (DC), Diabetes Mellitus Type 1 in Adults (DC), Hepatitis C (GEN), Basic Carbohydrate Counting (DC), Pancreatic Pseudocyst (DC) Referrals: Caryl Hightower MD [Primary Care Provider] - <Sushila Jarvis - Last Filed: 03/23/17 17:19> Provider - Provider Date of Admission: 03/19/17 12:30 Attending physician: Sushila Jarvis MD Primary care physician: Caryl Hightower MD Hospital Course - Lab Results Lab Results: Micro Results 03/19/17 16:00 Naris MRSA Culture (Admit) - Final MRSA NOT DETECTED Most Recent Lab Values WBC 2.9 10^3/ul (4.5-11.0) L* 03/23/17 07:00 RBC 4.54 10^6/uL (3.5-6.1) 03/23/17 07:00 Hgb 11.6 gm/dL (14.0-18.0) L 03/23/17 07:00 Hct 35.0 % (42.0-52.0) L 03/23/17 07:00 MCV 77.1 fL (80.0-105.0) L 03/23/17 07:00 MCH 25.6 pg (25.0-35.0) 03/23/17 07:00 MCHC 33.1 g/dl (31.0-37.0) 03/23/17 07:00 RDW 14.5 % (11.5-14.5) 03/23/17 07:00 Plt Count 119 10^3/uL (120.0-450.0) L 03/23/17 07:00 MPV 11.5 fl (7.0-11.0) H 03/23/17 07:00 Gran % 38.3 % (50.0-68.0) L 03/20/17 04:00 Lymph % (Auto) 48.8 % (22.0-35.0) H 03/20/17 04:00 [place] % (Auto) 7.0 % (1.0-6.0) H 03/20/17 04:00 Eos % (Auto) 4.8 % (1.5-5.0) 03/20/17 04:00 Baso % (Auto) 1.1 % (0.0-3.0) 03/20/17 04:00 Gran # 1.43 (1.4-6.5) 03/20/17 04:00 Lymph # 1.8 (1.2-3.4) 03/20/17 04:00 [place] # 0.3 (0.1-0.6) 03/20/17 04:00 Eos # 0.2 (0.0-0.7) 03/20/17 04:00 Baso # 0.04 K/mm3 (0.0-2.0) 03/20/17 04:00 Sodium 138 mmol/L (132-148) 03/23/17 07:00 Potassium 3.9 mmol/L (3.6-5.0) 03/23/17 07:00 Chloride 104 mmol/L (98-107) 03/23/17 07:00 Carbon Dioxide 27 mmol/L (21-33) 03/23/17 07:00 Anion Gap 11 (10-20) 03/23/17 07:00 BUN 7 mg/dL (7-21) 03/23/17 07:00 Creatinine 0.7 mg/dL (0.5-1.4) 03/23/17 07:00 Est GFR ( Amer) > 60 03/23/17 07:00 Est GFR (Non-Af Amer) > 60 03/23/17 07:00 POC Glucose (mg/dL) 206 mg/dL (65-110) H 03/23/17 16:25 Random Glucose 230 mg/dL (70-110) H 03/23/17 07:00 Calcium 8.7 mg/dL (8.4-10.5) 03/23/17 07:00 Total Bilirubin 0.6 mg/dL (0.2-1.3) 03/23/17 07:00 AST 22 U/L (15-59) 03/23/17 07:00 ALT 30 U/L (7-56) 03/23/17 07:00 Alkaline Phosphatase 79 U/L (38-133) 03/23/17 07:00 Total Protein 6.4 g/dL (5.8-8.3) 03/23/17 07:00 Albumin 3.3 g/dL (3.0-4.8) 03/23/17 07:00 Globulin 3.1 gm/dL 03/23/17 07:00 Albumin/Globulin Ratio 1.1 (1.1-1.8) 03/23/17 07:00 Triglycerides 204 mg/dL (35-160) H 03/23/17 07:00 Cholesterol 118 mg/dL (130-200) L 03/21/17 08:05 LDL Cholesterol Direct 60 mg/dL (0-129) 03/21/17 08:05 HDL Cholesterol 20 mg/dL (29-60) L 03/21/17 08:05 Lipase 15 U/L (23-300) L 03/21/17 08:05 Urine Color Yellow (YELLOW) 03/22/17 19:00 Urine Appearance Clear (CLEAR) 03/22/17 19:00 Urine pH 7.0 (4.7-8.0) 03/22/17 19:00 Ur Specific [place] 1.015 (1.005-1.035) 03/22/17 19:00 Urine Protein Negative mg/dL (<30 mg/dL) 03/22/17 19:00 Urine Glucose (UA) Negative mg/dL (NEGATIVE) 03/22/17 19:00 Urine Ketones Negative mg/dL (NEGATIVE) 03/22/17 19:00 Urine Blood Negative (NEGATIVE) 03/22/17 19:00 Urine Nitrate Negative (NEGATIVE) 03/22/17 19:00 Urine Bilirubin Negative (NEGATIVE) 03/22/17 19:00 Urine Urobilinogen 1.0 E.U./dL (<1 E.U./dL) H 03/22/17 19:00 Ur Leukocyte Esterase Negative [place]/uL (NEGATIVE) 03/22/17 19:00 Attending/Attestation - Attestation I have personally seen and examined this patient.: Yes I have fully participated in the care of the patient.: Yes I have reviewed all pertinent clinical information, including history, physical exam and plan: Yes Notes (Text): I have seen and examined patient at bedside with the resident. Agree with the above note with the following additions/ exceptions: Briefly this is 42 year old male with history of chronic pancreatitis, hypertriglyceridemia, IDDM, multiple pancreatic pseudocyst resection, cholecystectomy, appendectomy and known & untreated Hep C who was admitted for hypertriglyceridemia induced pancreatitis which improved with insulin drip. Patient has been tolerating diet. He had 1 BM following miralax. Upon discharge patient will follow up with Dr Hightower and GI clinic. Dr Sushila Jarvis
[2017-03-23 17:46] VITALS: BP 129/74; PULSE 50; TEMP 97.6; O2SAT 99
== END 2017-03-23 18:43 | disposition home or self-care (01) | DRG 557 ==
LOC: ED 01:30 → UNDOADMOB 04:29 → ERH 04:29 → 5RSO 07:01 → ERH 07:01 → UNDOADMOB 12:30 → ERH 12:30 → OBSVTOIN 12:30 → 5RSO 12:30 → CCU 15:49 → 5RSO 15:49 → INTOOBSV 03-20 07:59 → OBSVTOIN 03-20 07:59 → CCU 03-20 17:45 → 5RSO 03-20 17:45
PROVIDERS: ADMIT Internal Medicine; ATTEND Hospitalist
DX: K85.90 Acute pancreatitis without necrosis or infection, unspecified (principal); K86.3 Pseudocyst of pancreas; E10.22 Type 1 diabetes mellitus with diabetic chronic kidney disease; N18.9 Chronic kidney disease, unspecified; B19.20 Unspecified viral hepatitis C without hepatic coma; E78.1 Pure hyperglyceridemia; K86.1 Other chronic pancreatitis; I12.9 Hypertensive chronic kidney disease with stage 1 through stage 4 chronic kidney disease, or unspecified chronic kidney disease; I73.9 Peripheral vascular disease, unspecified; K21.9 Gastro-esophageal reflux disease without esophagitis; K59.03 Drug induced constipation; T40.605A Adverse effect of unspecified narcotics, initial encounter; K64.9 Unspecified hemorrhoids; Z87.11 Personal history of peptic ulcer disease; Z79.4 Long term (current) use of insulin; Z87.440 Personal history of urinary (tract) infections; Z87.442 Personal history of urinary calculi; Z90.49 Acquired absence of other specified parts of digestive tract; R40.2412 Glasgow coma scale score 13-15, at arrival to emergency department; I86.8 Varicose veins of other specified sites; Z91.048 Other nonmedicinal substance allergy status; R00.1 Bradycardia, unspecified; R30.0 Dysuria

== ENCOUNTER 2017-04-04 21:44 | Inpatient (IN) | payer OTHER ==
[2017-04-05] MEDS: Sodium Chloride 0.9% 1,000 ML IV STA ×2 (00:30→05:05)
[2017-04-05] MEDS ORDERED: Morphine 4 mg/ml ISec IVP STA (00:36)
[2017-04-05 00:46] LABS: ALB/GLOB RATIO 1.2 (1.1-1.8); ALBUMIN 4.2 g/dL (3.0-4.8); ALT/SGPT 31 U/L (7-56); AMYLASE 75 U/L (35-125); AST/SGOT 28 U/L (15-59); BLOOD UREA NITROGEN 16 mg/dL (7-21); CALCIUM 9.3 mg/dL (8.4-10.5); GFR AFRICAN-AMERICAN > 60; GFR NON-AFRICAN AMERICAN > 60; LIPASE 337 U/L (23-300)
[2017-04-05 00:48] LABS: BASO # 0.09 K/mm3 (0.0-2.0); BASO % 1.7 % (0.0-3.0); EOS # 0.1 (0.0-0.7); EOS % 1.5 % (1.5-5.0); GRAN # 2.58 (1.4-6.5); GRAN % 48.5 % (50.0-68.0); HEMOGLOBIN 12.7 gm/dL (14.0-18.0); LYMPH # 2.2 (1.2-3.4); LYMPH % 41.9 % (22.0-35.0); MEAN CELL VOLUME 76.4 fL (80.0-105.0); MEAN CORPUSCULAR HEMOGLOBIN 25.8 pg (25.0-35.0); MEAN CORPUSCULAR HGB CONC 33.8 g/dl (31.0-37.0); MEAN PLATELET VOLUME 11.1 fl (7.0-11.0); MONO # 0.3 (0.1-0.6); MONO % 6.4 % (1.0-6.0); PLATELET COUNT 184 10^3/uL (120.0-450.0); RBC 4.92 10^6/uL (3.5-6.1); RED CELL DISTRIBUTION WIDTH 14.4 % (11.5-14.5)
[2017-04-05 00:50] LABS: WHITE BLOOD COUNT 5.3 10^3/ul (4.5-11.0)
[2017-04-05 01:00] LABS: URINE BILIRUBIN NEGATIVE (NEGATIVE); URINE BLOOD NEGATIVE (NEGATIVE); URINE GLUCOSE (UA) 250 mg/dL (NEGATIVE); URINE LEUKOCYTE ESTERASE NEGATIVE Leu/uL (NEGATIVE); URINE NITRATE NEGATIVE (NEGATIVE); URINE PROTEIN TRACE mg/dL (<30 mg/dL)
[2017-04-05 01:02] LABS: URINE APPEARANCE CLEAR (CLEAR); URINE COLOR YELLOW (YELLOW)
[2017-04-05 01:09] LABS: URINE RBC 0 - 2 /hpf (0-2)
[2017-04-05 01:10] LABS: URINE WBC NEGATIVE /hpf (0-6)
[2017-04-05 01:11] LABS: URINE BACTERIA MOD (NEG)
--- NOTE | 2017-04-05 01:35 | ED PDOC ---
Arrival/HPI - General Chief Complaint: GI Problem Time Seen by Provider: 04/05/17 00:08 Historian: Patient - History of Present Illness Narrative History of Present Illness (Text): 04/05/17 01:31 42-year-old male with history of pancreatitis and pancreatic cysts and diabetes presents today with worsening abdominal pain over the past 2 days. Patient states he's been having nausea and today had 8 episodes of vomiting. Patient states he's had multiple abdominal surgeries and he is had a drastic increase in his chronic abdominal pain. He denies back pain. Denies fevers or chills. Denies urinary symptoms. Patient denies chest pain or shortness of breath. no medications taken for pain at home. pt states he takes pancreatic enzymes. Time/Duration: Other (3 days) Symptom Onset: Gradual Symptom Course: Worsening Quality: Stabbing, Throbbing Severity Level: 10, Severe Past Medical History - Provider Review Nursing Documentation Reviewed: Yes - Travel History Have you recently traveled outside [place] w/in the past 3 mons?: No - Infectious Disease Hx of Infectious Diseases: None - Tetanus Immunization Tetanus Immunization: Unknown - Cardiac Hx Cardiac Disorders: Yes Hx Cardiac Arrhythmia: Yes (bradycardia) Hx Hypertension: Yes Hx Peripheral Vascular Disease: Yes - Pulmonary Hx Respiratory Disorders: Yes (chronic dry cough x 8 months since sx) - Neurological Hx Neurological Disorder: Yes Hx Dizziness: Yes (falls from dizziness since 2013) - HEENT Hx HEENT Disorder: Yes (blurry vision) Other/Comment: [place] due to earwax - Renal Hx Renal Disorder: Yes Hx Kidney Stones: Yes - Endocrine/Metabolic Hx Endocrine Disorders: Yes Hx Diabetes Mellitus Type 1: Yes - Hematological/Oncological Hx Blood Disorders: Yes Hx Hepatitis C: Yes - Integumentary Hx Dermatological Disorder: Yes Other/Comment: chronic itchy skin since "surgery 8 months ago" - Musculoskeletal/Rheumatological Hx Falls: Yes ("dizzy and falling since 2014") - Gastrointestinal Hx Gastrointestinal Disorders: Yes (chronic constipation) Hx Gall Bladder Disease: Yes (gallstones) Hx Gastroesophageal Reflux: Yes Hx Pancreatitis: Yes - Genitourinary/Gynecological Hx Genitourinary Disorders: Yes (burning on urination "sometimes') Hx Urinary Tract Infection: Yes - Psychiatric Hx Depression: Yes Hx Substance Use: No - Surgical History Hx Appendectomy: Yes Hx Cholecystectomy: Yes Other/Comment: 2008 in [place] ap ruptured damagec pancreas, had sx on pancreas and gb sx at [facility] 8 months ago - Anesthesia Hx Anesthesia: Yes - Suicidal Assessment Feels Threatened In Home Enviroment: No Family/Social History - Physician Review Nursing Documentation Reviewed: Yes Family/Social History: Unknown Family HX Smoking Status: y Hx Alcohol Use: No Hx Substance Use: No Hx Substance Use Treatment: No Allergies/Home Meds Allergies/Adverse Reactions: Allergies dy Allergy (Mild, Uncoded 02/17/17 15:38) ITCHING hair color dye Allergy (Uncoded 02/17/17 15:38) RASH Home Medications: Home Meds Medication Instructions Recorded Confirmed Colesevelam HCl [Welchol] 625 mg PO BID 01/25/17 03/19/17 Gabapentin [Neurontin] 1 cap PO DAILY 01/25/17 03/19/17 Review of Systems - Review of Systems Constitutional: absent: Fatigue, Fevers ENT: absent: Sinus Congestion Respiratory: absent: SOB, Cough Cardiovascular: absent: Chest Pain, Palpitations Gastrointestinal: Abdominal Pain, Constipation, Nausea, Vomiting. absent: Diarrhea Genitourinary Male: absent: Dysuria, Frequency, Hematuria Musculoskeletal: absent: Back Pain, Neck Pain Skin: absent: Rash, Pruritis Neurological: absent: Headache, Dizziness Physical Exam Vital Signs Reviewed: Yes Vital Signs Temp Pulse Resp BP Pulse Ox 04/05/17 02:55 45 L 18 138/70 100 04/04/17 22:07 98.1 F 65 18 115/75 99 Temperature: Afebrile Blood Pressure: Normal Pulse: Regular Respiratory Rate: Normal Appearance: Positive for: Well-Appearing, Non-Toxic, Comfortable Pain Distress: None Mental Status: Positive for: Alert and Oriented X 3 - Systems Exam Head: Present: Atraumatic Respiratory/Chest: Present: Clear to Auscultation, Good Air Exchange. No: Respiratory Distress, Accessory Muscle Use Cardiovascular: Present: Regular Rate and Rhythm Abdomen: Present: Tenderness (diffuse abdominal tenderness), Normal Bowel Sounds , Rebound, Guarding. No: Distention, Peritoneal Signs Back: Present: Normal Inspection. No: CVA Tenderness Upper Extremity: Present: Normal ROM Lower Extremity: Present: Normal ROM Neurological: Present: GCS=15 Skin: Present: Warm, Dry, Normal Color. No: Rashes Psychiatric: Present: Alert, Oriented x 3 Medical Decision Making ED Course and Treatment: 04/05/17 01:35 Patient is nontoxic well appearing with stable vital signs presenting with severe abdominal pain n/v. CBC wnl CMP glucose; 215 Amylase wnl Lipase 337 Urinalysis + ketones CAT scan: FINDINGS: Lower thorax: No acute findings. ABDOMEN: Liver: There is hypodense fatty infiltration of the liver. Hepatomegaly. There is biliary dilatation. The common hepatic duct measures 1 cm in diameter, without significant progression. Gallbladder and bile ducts: Surgical clips are identified within the gallbladder fossa, compatible with cholecystectomy. Pancreas: In the region of the pancreatic body, there is a 2.2 x 2.1 cm hypodense cystic lesion, which has mildly increased in size. Differential considerations include pancreatic cyst, pseudocyst, IPMN, and cystic neoplasm. Spleen: The spleen measures 14.3 cm in length, consistent with splenomegaly. Adrenals: No mass. Kidneys and ureters: There is a small subcentimeter probable cyst at the mid to upper pole of the left kidney. Stomach and bowel: There is wall thickening of the stomach and duodenum, suggestive of gastroenteritis. Appendix: The appendix is not visualized. PELVIS: Bladder: No mass. Reproductive: Unremarkable as visualized. ABDOMEN and PELVIS: Intraperitoneal space: Multiple varices are visualized within the upper abdomen. Bones/joints: Hypertrophic degenerative changes are noted within the spine. Vasculature: No abdominal aortic aneurysm. Lymph nodes: No enlarged lymph nodes. IMPRESSION: 1. There is hypodense fatty infiltration of the liver. Hepatomegaly. 2. Splenomegaly. 3. There is wall thickening of the stomach and duodenum, suggestive of gastroenteritis. 4. In the region of the pancreatic body, there is a 2.2 x 2.1 cm hypodense cystic lesion, which has mildly increased in size. Differential considerations include pancreatic cyst, pseudocyst, IPMN, and cystic neoplasm. A nonemergent MRI of the abdomen with contrast is recommended. 5. There is biliary dilatation. The common hepatic duct measures 1 cm in diameter, without significant progression. 6. Multiple varices are visualized within the upper abdomen. 7. Incidental/non-acute findings are described above. Patient reassessment: Patient with continued pain and multiple doses of pain medications and nausea medications given. Case was discussed and Dr. velasco:accepts admission observational status to the medicine floor for intractable abdominal pain with an elevated lipase Discussed all results with patient in depth Impression: Abdominal pain, intractable, elevated lipase. Admit observational status to [facility] - Lab Interpretations Lab Results: 04/05/17 00:20 04/05/17 00:20 Lab Results 04/05/17 00:20: Urine Color Yellow, Urine Appearance Clear, Urine pH 6.0, Ur Specific [place] >= 1.030, Urine Protein Trace H, Urine Glucose (UA) 250 H, Urine Ketones Trace H, Urine Blood Negative, Urine Nitrate Negative, Urine Bilirubin Negative, Urine Urobilinogen 1.0 H, Ur Leukocyte Esterase Negative, Urine RBC 0 - 2, Urine WBC Negative, Ur Epithelial Cells 4 - 5, Urine Bacteria Mod, Urine Other Mucus 04/05/17 00:20: WBC 5.3 D, RBC 4.92, Hgb 12.7 L, Hct 37.6 L, MCV 76.4 L, MCH 25.8, MCHC 33.8, RDW 14.4, Plt Count 184, MPV 11.1 H, Gran % 48.5 L, Lymph % ( Auto) 41.9 H, [place] % (Auto) 6.4 H, Eos % (Auto) 1.5, Baso % (Auto) 1.7, Gran # 2.58, Lymph # 2.2, [place] # 0.3, Eos # 0.1, Baso # 0.09 04/05/17 00:20: Sodium 138, Potassium 4.0, Chloride 101, Carbon Dioxide 26, Anion Gap 15, BUN 16, Creatinine 0.6, Est GFR ( Amer) > 60, Est GFR (Non- Af Amer) > 60, Random Glucose 215 H, Calcium 9.3, Total Bilirubin 0.7, AST 28, ALT 31, Alkaline Phosphatase 81, Total Protein 7.7, Albumin 4.2, Globulin 3.5, Albumin/Globulin Ratio 1.2, Amylase 75, Lipase 337 H - RAD Interpretation Radiology Orders: 04/05/17 00:10 CHEST PORTABLE [RAD] Stat 04/05/17 00:37 ABD & PELVIS IV CONTRAST ONLY [CT] Stat - Medication Orders Current Medication Orders: Ondansetron HCl (Zofran Inj) 4 mg IVP STAT STA Stop: 04/05/17 03:35 Discontinued Medications Hydromorphone HCl (Dilaudid) 1 mg IVP STAT STA Stop: 04/05/17 02:57 Last Admin: 04/05/17 03:06 Dose: 1 mg Sodium Chloride (Sodium Chloride 0.9%) 1,000 mls @ 999 mls/hr IV .Q1H1M STA Stop: 04/05/17 01:10 Last Admin: 04/05/17 00:30 Dose: 999 mls/hr Iohexol (Omnipaque 350 100 Ml) Confirm Administered Dose 350 mg .ROUTE .STK-MED ONE Stop: 04/05/17 02:01 Morphine Sulfate (Morphine) 4 mg IVP STAT STA Stop: 04/05/17 00:37 Last Admin: 04/05/17 01:02 Dose: 4 mg Ondansetron HCl (Zofran Inj) 4 mg IVP STAT STA Stop: 04/05/17 00:11 Last Admin: 04/05/17 00:30 Dose: 4 mg Disposition/Present on Arrival - Present on Arrival Any Indicators Present on Arrival: Yes History of DVT/PE: No History of Uncontrolled Diabetes: Yes Urinary Catheter: No History of Decub. Ulcer: No History Surgical Site Infection Following: None - Disposition Have Diagnosis and Disposition been Completed?: Yes Diagnosis: Pancreatic mass, Intractable abdominal pain, Nausea & vomiting Disposition: HOSPITALIZED Disposition Time: 03:40 Patient Plan: Observation Condition: FAIR
[2017-04-05] MEDS ORDERED: Iohexol 350 MG/100 ML VIAL ONE (02:00)
[2017-04-05] MEDS ORDERED: HYDROmorphone 1 mg/ml ISec IVP STA (02:56)
--- NOTE | 2017-04-05 03:20 | CT ---
EXAM: CT Abdomen and Pelvis With Intravenous Contrast CLINICAL HISTORY: The patient age is 42 years old and is male; Pain; Abdominal pain; Additional info: Abd pain Facility exam id and description: Ct abdpelciv abd pelvis iv contrast only TECHNIQUE: Axial computed tomography images of the abdomen and pelvis with intravenous contrast. This CT exam was performed using one or more of the following dose reduction techniques: automated exposure control, adjustment of the mA and/or kV according to patient size, and/or use of iterative reconstruction technique. Coronal and sagittal reformatted images were created and reviewed. CONTRAST: 96 mL of OMNI 350 administered intravenously. EXAM DATE/TIME: 04/05/2017 12:37 AM COMPARISON: CT - ABD PELVIS IV CONTRAST ONLY 03/19/2017 3:17:31 AM FINDINGS: Lower thorax: No acute findings. ABDOMEN: Liver: There is hypodense fatty infiltration of the liver. Hepatomegaly. There is biliary dilatation. The common hepatic duct measures 1 cm in diameter, without significant progression. Gallbladder and bile ducts: Surgical clips are identified within the gallbladder fossa, compatible with cholecystectomy. Pancreas: In the region of the pancreatic body, there is a 2.2 x 2.1 cm hypodense cystic lesion, which has mildly increased in size. Differential considerations include pancreatic cyst, pseudocyst, IPMN, and cystic neoplasm. Spleen: The spleen measures 14.3 cm in length, consistent with splenomegaly. Adrenals: No mass. Kidneys and ureters: There is a small subcentimeter probable cyst at the mid to upper pole of the left kidney. Stomach and bowel: There is wall thickening of the stomach and duodenum, suggestive of gastroenteritis. Appendix: The appendix is not visualized. PELVIS: Bladder: No mass. Reproductive: Unremarkable as visualized. ABDOMEN and PELVIS: Intraperitoneal space: Multiple varices are visualized within the upper abdomen. Bones/joints: Hypertrophic degenerative changes are noted within the spine. Vasculature: No abdominal aortic aneurysm. Lymph nodes: No enlarged lymph nodes. IMPRESSION: 1. There is hypodense fatty infiltration of the liver. Hepatomegaly. 2. Splenomegaly. 3. There is wall thickening of the stomach and duodenum, suggestive of gastroenteritis. 4. In the region of the pancreatic body, there is a 2.2 x 2.1 cm hypodense cystic lesion, which has mildly increased in size. Differential considerations include pancreatic cyst, pseudocyst, IPMN, and cystic neoplasm. A nonemergent MRI of the abdomen with contrast is recommended. 5. There is biliary dilatation. The common hepatic duct measures 1 cm in diameter, without significant progression. 6. Multiple varices are visualized within the upper abdomen. 7. Incidental/non-acute findings are described above.
--- NOTE | 2017-04-05 03:50 | CP.PCM.HP ---
<Patrick Forde - Last Filed: 04/05/17 05:12> History of Present Illness - History of Present Illness History of Present Illness: CC: abdominal pain Patient is a 42 year old male with PMH of Hep C, Arthritis, Pancreatitis, pancreatic cysts, DM, HLD, chronic back pain who presents to the ED for evaluation of abdominal pain. It is important to note that the patient has been experiencing abdominal pain with nausea over the past 8 months s/p his pancreatic pseudocyst resection however it has been exacerbated over the past 2 days with no provoking event. He is having associated nausea with 8 episodes of nonbloody emesis. Patient admits to complying with his pancreatic enzyme supplementations. Denies fever, chills, chest pain, SOB, diarrhea, constipation , and urinary symptoms. PMHx: Hepatitis C, Chronic Pancreatitis, DM, HLD, Arthritis, chronic back pain PSHx: Appendectomy, Cholecystectomy, Pancreatic Pseudocyst resection Family Hx: Denies Social Hx: Current 3 cigars daily, No ETOH, No illicit drugs Allergy: Hair Dye Present on Admission - Present on Admission Any Indicators Present on Admission: No Review of Systems - Review of Systems Review of Systems: 12 point review of systems negative except as indicated in HPI. Past Patient History - Infectious Disease Hx of Infectious Diseases: None - Tetanus Immunizations Tetanus Immunization: Unknown - Past Medical History & Family History Past Medical History?: Yes - Past Social History Smoking Status: y - CARDIAC Hx Cardiac Disorders: Yes Hx Cardia Arrhythmia: Yes (bradycardia) Hx Hypertension: Yes Hx Peripheral Vascular Disease: Yes - PULMONARY Hx Respiratory Disorders: Yes (chronic dry cough x 8 months since sx) - NEUROLOGICAL Hx Neurological Disorder: Yes Hx Dizziness: Yes (falls from dizziness since 2013) - HEENT Hx HEENT Problems: Yes (blurry vision) Other/Comment: [place] due to earwax - RENAL Hx Chronic Kidney Disease: Yes Hx Kidney Stones: Yes - ENDOCRINE/METABOLIC Hx Endocrine Disorders: Yes Hx Diabetes Mellitus Type 1: Yes - HEMATOLOGICAL/ONCOLOGICAL Hx Blood Disorders: Yes Hx Hepatitis C: Yes - INTEGUMENTARY Hx Dermatological Problems: Yes Other/Comment: chronic itchy skin since "surgery 8 months ago" - MUSCULOSKELETAL/RHEUMATOLOGICAL Hx Falls: Yes ("dizzy and falling since 2013") - GASTROINTESTINAL Hx Gastrointestinal Disorders: Yes (chronic constipation) Hx Gall Bladder Disease: Yes (gallstones) Hx Gastroesophageal Reflux: Yes Hx Pancreatitis: Yes - GENITOURINARY/GYNECOLOGICAL Hx Genitourinary Disorders: Yes (burning on urination "sometimes') Hx Urinary Tract Infection: Yes - PSYCHIATRIC Hx Depression: Yes Hx Substance Use: No - SURGICAL HISTORY Hx Appendectomy: Yes Hx Cholecystectomy: Yes Other/Comment: 2009 in [place] ap ruptured damagec pancreas, had sx on pancreas and gb sx at [facility] 8 months ago - ANESTHESIA Hx Anesthesia: Yes Meds Allergies/Adverse Reactions: Allergies Allergy/AdvReac Type Severity Reaction Status Date / Time dy Allergy Mild ITCHING Uncoded 02/17/17 15:38 hair color dye Allergy RASH Uncoded 02/17/17 15:38 Physical Exam - Constitutional Appears: Non-toxic, No Acute Distress - Head Exam Head Exam: ATRAUMATIC, NORMAL INSPECTION - Eye Exam Eye Exam: EOMI, Normal appearance - ENT Exam ENT Exam: Mucous Membranes Moist - Neck Exam Neck exam: Positive for: Normal Inspection. Negative for: Tenderness - Respiratory Exam Respiratory Exam: Clear to Auscultation Bilateral, NORMAL BREATHING PATTERN. absent: Rales, Rhonchi, Wheezes - Cardiovascular Exam Cardiovascular Exam: Bradycardia, +S1, +S2 - GI/Abdominal Exam GI & Abdominal Exam: Soft, Tenderness. absent: Rebound, Rigid - Back Exam Back exam: NORMAL INSPECTION. absent: tenderness - Neurological Exam Neurological exam: Alert, CN II-XII Intact, Oriented x3 - Psychiatric Exam Psychiatric exam: Normal Affect, Normal Mood - Skin Skin Exam: Normal Color, Warm Additional comments: scar present midline of abdomen from laparatomy s/p pancreatic pseudocyst removal Results - Vital Signs Recent Vital Signs: Last Vital Signs Temp 98.1 F 04/04/17 22:07 Pulse 45 L 04/05/17 02:55 Resp 18 04/05/17 02:55 BP 138/70 04/05/17 02:55 Pulse Ox 100 04/05/17 02:55 - Labs Result Diagrams: 04/05/17 00:20 04/05/17 00:20 Labs: Laboratory Results - last 24 hr 04/05/17 04/05/17 04/05/17 00:20 00:20 00:20 WBC 5.3 D RBC 4.92 Hgb 12.7 L Hct 37.6 L MCV 76.4 L MCH 25.8 MCHC 33.8 RDW 14.4 Plt Count 184 MPV 11.1 H Gran % 48.5 L Lymph % (Auto) 41.9 H [place] % (Auto) 6.4 H Eos % (Auto) 1.5 Baso % (Auto) 1.7 Gran # 2.58 Lymph # 2.2 [place] # 0.3 Eos # 0.1 Baso # 0.09 Sodium 138 Potassium 4.0 Chloride 101 Carbon Dioxide 26 Anion Gap 15 BUN 16 Creatinine 0.6 Est GFR ( Amer) > 60 Est GFR (Non-Af Amer) > 60 Random Glucose 215 H Calcium 9.3 Total Bilirubin 0.7 AST 28 ALT 31 Alkaline Phosphatase 81 Total Protein 7.7 Albumin 4.2 Globulin 3.5 Albumin/Globulin Ratio 1.2 Amylase 75 Lipase 337 H Urine Color Yellow Urine Appearance Clear Urine pH 6.0 Ur Specific Adamant >= 1.030 Urine Protein Trace H Urine Glucose (UA) 250 H Urine Ketones Trace H Urine Blood Negative Urine Nitrate Negative Urine Bilirubin Negative Urine Urobilinogen 1.0 H Ur Leukocyte Esterase Negative Urine RBC 0 - 2 Urine WBC Negative Ur Epithelial Cells 4 - 5 Urine Bacteria Mod Urine Other Mucus Assessment & Plan - Assessment and Plan (Free Text) Assessment: Patient is a 42 year old male with PMH of Hep C, Arthritis, Pancreatitis, pancreatic cysts, DM, HLD, chronic back pain who is being admitted for evaluation and treatment of his abdominal pain. 1. Abdomnial pain likely 2/2 to pancreatitis - NPO- may have ice chips and take medications PO - IVF NS @ 150 - pain control morphine - zofran - continue home pancreatic enzymes when diet is started - GI consult 2. Diabetes - accu checks q6 hours - levemir 20 units, patient normally takes 30 units of 70/30 and 20 units humalog x 2 - ISS 3. Hyperlipidemia - continue home lovaza - continue home lipitor - continue home gemfibrozil - continue home Colesevelam 4. PPX - subq heparin - protonixs - Patient seen, evaluated, and discussed with attending, Dr. Woods. <Young Woods P - Last Filed: 04/05/17 06:32> Results - Vital Signs Recent Vital Signs: Last Vital Signs Temp 97.8 F 04/05/17 05:22 Pulse 54 L 04/05/17 05:22 Resp 18 04/05/17 05:22 BP 123/65 04/05/17 05:22 Pulse Ox 100 04/05/17 05:25 - Labs Result Diagrams: 04/05/17 05:20 04/05/17 00:20 Labs: Laboratory Results - last 24 hr 04/05/17 05:20 WBC 4.6 RBC 4.71 Hgb 12.0 L Hct 35.8 L MCV 76.0 L MCH 25.5 MCHC 33.5 RDW 14.1 Plt Count 146 MPV 10.8 Gran % 41.2 L Lymph % (Auto) 48.5 H [place] % (Auto) 7.0 H Eos % (Auto) 2.4 Baso % (Auto) 0.9 Gran # 1.89 Lymph # 2.2 [place] # 0.3 Eos # 0.1 Baso # 0.04 Attending/Attestation - Attestation I have personally seen and examined this patient.: Yes I have fully participated in the care of the patient.: Yes I have reviewed all pertinent clinical information: Yes Notes (Text): 04/05/17 06:29 Recurrent pancreatitis with abd pain, vomiting x9 for 1 day, with remaining one pancreatic cyst, mild dehydration, h/o uncontrolled dm on about 80 units/day of insulin, h/o hep c, not treated, h/o portal htn, h/o chronic lower abd pain. IVF, npo, opiod meds, zofran, protonix, gi evaluation. See orders for detail.
[2017-04-05] MEDS: Sodium Chloride 0.9% 1,000 ML IV SCH ×2 (05:18→08:39)
[2017-04-05 05:55] LABS: BASO # 0.04 K/mm3 (0.0-2.0); BASO % 0.9 % (0.0-3.0); EOS # 0.1 (0.0-0.7); EOS % 2.4 % (1.5-5.0); GRAN # 1.89 (1.4-6.5); GRAN % 41.2 % (50.0-68.0); LYMPH # 2.2 (1.2-3.4); LYMPH % 48.5 % (22.0-35.0); MEAN CORPUSCULAR HEMOGLOBIN 25.5 pg (25.0-35.0); MEAN CORPUSCULAR HGB CONC 33.5 g/dl (31.0-37.0); MEAN PLATELET VOLUME 10.8 fl (7.0-11.0); MONO # 0.3 (0.1-0.6); PLATELET COUNT 146 10^3/uL (120.0-450.0); RBC 4.71 10^6/uL (3.5-6.1); RED CELL DISTRIBUTION WIDTH 14.1 % (11.5-14.5); WHITE BLOOD COUNT 4.6 10^3/ul (4.5-11.0)
[2017-04-05 06:02] LABS: MAGNESIUM 1.8 mg/dL (1.7-2.2)
[2017-04-05] MEDS: Morphine 2 mg/ml ISec IVP PRN ×4 (06:58→20:40)
--- NOTE | 2017-04-05 07:35 | RAD ---
HISTORY: abd pain COMPARISON: 02/17/2017 FINDINGS: LUNGS: No active pulmonary disease. PLEURA: No significant pleural effusion identified, no pneumothorax apparent. CARDIOVASCULAR: Normal. OSSEOUS STRUCTURES: No significant abnormalities. VISUALIZED UPPER ABDOMEN: Normal. OTHER FINDINGS: None. IMPRESSION: No active disease. No interval pathology
[2017-04-05 09:02] LABS: HDL CHOLESTEROL 22 mg/dL (29-60)
[2017-04-05 09:13] LABS: LDL CHOLESTEROL 71 mg/dL (0-129)
[2017-04-05] MEDS: Insulin Detemir 100 units/ml Vial (Levemir) SC SCH (09:36)
[2017-04-05] MEDS: Omega-3-Acid Ethyl Esters 1 GM Cap PO SCH ×2 (09:40→17:17)
[2017-04-05] MEDS: COLESEVELAM HCL 625 MG PO SCH ×2 (11:47→17:18)
[2017-04-05] MEDS: Insulin Lispro (humaLOG) MEDIUM Coverage SC SCH ×3 (12:15→17:35)
--- NOTE | 2017-04-05 12:26 | CARD ---
APPROVED REPORT EKG Measurement Heart [id number] <Conclusion> Marked sinus bradycardia Left axis deviation Abnormal ECG
[2017-04-05 13:13] VITALS: BMI 23.6
[2017-04-05] MEDS ORDERED: Pneumococcal 23-Valent Vaccine IM ONE (13:14)
--- NOTE | 2017-04-05 18:55 | CON ---
DATE: 04/05/2017 HISTORY OF PRESENT ILLNESS: I examined the patient this morning. 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 The patient has been admitted on a periodic basis every few weeks for the past couple months. Note that he has had some weight loss as well. Rectal bleeding and hematemesis denied. Reviewed the issue of his pancreatic enzyme therapy, which we reviewed at length during his previous admission. Apparently, he was on Zantac previously, this was deferred by his insurance company. The current pancreatic enzyme therapies "does not work." He attributes this reason for his recurrent admissions. PHYSICAL EXAMINATION VITAL SIGNS: Reviewed this patient's vital signs. HEENT: Significant for dry mouth. CARDIOPULMONARY: Irregular rhythm. LUNGS: Decreased breath sounds bilaterally at the bases. ABDOMEN: Tender, diffuse, especially in the periumbilical area, right upper quadrant epigastric. Lower quadrant is noncontributory. LABORATORY DATA: Indicate white count of 5+, H and H 12/37 with a platelet count of 184. Chemistry indicates lipase of 337 with normal transaminases, bilirubin, and alkaline phosphatase. Urine indicates exposure of glucose, protein, trace ketones *------*. Review of the abdominal and pelvic CT performed today indicates hepatic steatosis, which she has had before with hepatomegaly, splenomegaly, some increasing wall thickness of the stomach and duodenum as well as a pancreatic cystic lesion noted in the body. Varices were noted on prior CT scans as well. 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 I reviewed the orders for this particular case, which appear adequate at the current time point *------* during previous admissions, I will consider using Ringer lactate somewhere today. In this particular case, the patient appears fully depleted; therefore, give the hydration. This patient may improve rather dramatically. I reviewed the issue of compassionate programs to obtain the optimum pancreatic enzyme replacement therapy that this patient needs. Lucian Scott DO [facility] # [id number]
[2017-04-06] MEDS: Morphine 2 mg/ml ISec IVP PRN ×6 (00:10→23:43)
[2017-04-06] MEDS: Insulin Lispro (humaLOG) MEDIUM Coverage SC SCH ×5 (00:43→21:42)
[2017-04-06 07:18] LABS: HEMOGLOBIN 11.5 gm/dL (14.0-18.0); MEAN CORPUSCULAR HEMOGLOBIN 26.1 pg (25.0-35.0); MEAN CORPUSCULAR HGB CONC 33.4 g/dl (31.0-37.0); MEAN PLATELET VOLUME 11.6 fl (7.0-11.0); PLATELET COUNT 129 10^3/uL (120.0-450.0); RBC 4.41 10^6/uL (3.5-6.1); RED CELL DISTRIBUTION WIDTH 14.9 % (11.5-14.5)
[2017-04-06 07:19] LABS: ALB/GLOB RATIO 1.2 (1.1-1.8); ALBUMIN 3.3 g/dL (3.0-4.8); ALT/SGPT 30 U/L (7-56); AST/SGOT 24 U/L (15-59); BLOOD UREA NITROGEN 6 mg/dL (7-21); CALCIUM 8.2 mg/dL (8.4-10.5); GFR AFRICAN-AMERICAN > 60; GFR NON-AFRICAN AMERICAN > 60
[2017-04-06 07:41] LABS: WHITE BLOOD COUNT 2.9 10^3/ul (4.5-11.0)
[2017-04-06 09:12] LABS: EOSINOPHIL 1 % (0.0-3.0); LYMPHOCYTE 55 % (22.0-35.0); MONOCYTE 7 % (1.0-6.0); NEUTROPHIL 37 % (50.0-70.0); PLATELET ESTIMATE NORMAL (NORMAL)
[2017-04-06] MEDS: POLYETHYLENE GLYCOL 3350 17 GM/Dose PACKET PO SCH (09:35)
[2017-04-06] MEDS: Omega-3-Acid Ethyl Esters 1 GM Cap PO SCH ×2 (09:35→17:10)
[2017-04-06] MEDS: Insulin Detemir 100 units/ml Vial (Levemir) SC SCH (09:35)
[2017-04-06] MEDS: Sodium Chloride 0.9% 1,000 ML IV SCH (09:36)
[2017-04-06] MEDS: COLESEVELAM HCL 625 MG PO SCH ×2 (09:36→17:10)
[2017-04-06 12:06] LABS: AMYLASE 48 U/L (35-125); LIPASE 87 U/L (23-300)
[2017-04-06] MEDS: Lactated Ringer's 1,000 ML IV SCH ×2 (14:25→20:00)
--- NOTE | 2017-04-06 14:32 | PN ---
DATE: 04/06/2017 SUBJECTIVE: I saw Mr. Oh this morning. He is a 42-year-old male known to consultants with a past medical history of chronic pancreatitis with pseudocyst. The patient indicates still [id number] degree of pain associated with nausea and vomiting. Now that the patient was admitted due to symptoms of the above secondary to ineffectiveness of his pancreatic enzyme therapy. The patient was also somewhat fluid depleted on admission also. PHYSICAL EXAMINATION: VITAL SIGNS: I reviewed this patient's vital signs. HEENT: Significant for dry mouth. LUNGS: Clear to auscultation. HEART: Regular rhythm. ABDOMEN: Soft, still extremely tender in the area of the right upper quadrant, epigastric, and the left upper quadrant plus the periumbilical area. The abdomen is still mildly distended. LABORATORY DATA: Reviewed this patient's laboratory data from yesterday and labs are pending for this morning. I reviewed the H and P for this patient from Dr. Woods. Significant from my report yesterday, CT came significant for hepatic steatosis with hepatosplenomegaly. He does have a hypodense cystic lesion of pancreatic body, which he has had before, now it is mildly increased in size. There is some mild biliary dilatation; however, the common bile duct is less than 1 cm. He does have varices noted in the upper abdomen. 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 Reviewed the current orders, which consists of analgesics. He is on intravenous fluids, which presumably should be transferred over to Ringer's lactate instead of sodium chloride. The patient is on Zofran therapy. One may consider changing his analgesics to something other than Ultram, which I believe is * * morphine is ordered on 2 mg IV q. 4 hours basis. The Ultram should be used with morphine if at all possible or something stronger. At the current time point, the patient is still exhibiting lot of nausea with abdominal pain. He is not ready for advancing diet as of yet. He takes very small volumes of either clears or full be more appropriate. Lucian Scott DO
--- NOTE | 2017-04-06 16:48 | CP.PCM.PN ---
<Vani Urbina - Last Filed: 04/06/17 16:45> Subjective - Date & Time of Evaluation Date of Evaluation: 04/06/17 Time of Evaluation: 16:45 - Subjective Subjective: Patient has been seen and examined. He is still complaining of nausea and abdominal pain which he states has not improved. Denies any chest pain, vomiting, fevers, chills. Objective - Vital Signs/Intake and Output Vital Signs (last 24 hours): Temp Pulse Resp BP Pulse Ox 97.6 F 54 L 18 124/73 100 04/06/17 16:39 04/06/17 16:39 04/06/17 16:39 04/06/17 16:39 04/06/17 16:39 - Medications Medications: Current Medications Atorvastatin Calcium (Lipitor) 20 mg PO DIN [facility] Last Admin: 04/05/17 17:17 Dose: 20 mg Gemfibrozil (Lopid) 600 mg PO BID [facility] Last Admin: 04/06/17 09:35 Dose: 600 mg Lactated Ringer's (Lactated Ringer's) 1,000 mls @ 150 mls/hr IV .Q6H40M [facility] Last Admin: 04/06/17 14:25 Dose: 150 mls/hr Insulin Detemir (Levemir) 20 unit SC DAILY [facility] Last Admin: 04/06/17 09:35 Dose: 20 unit Insulin Human Lispro (Humalog Med) 0 units SC ACHS [facility] PRN Reason: Protocol Last Admin: 04/06/17 12:23 Dose: 3 units Morphine Sulfate (Morphine) 2 mg IVP Q4 PRN PRN Reason: Pain, moderate (4-7) Last Admin: 04/06/17 14:24 Dose: 2 mg Colesevelam Hcl [ Welchol] 625 Mg- Home Med 625 mg PO BID [facility] Last Admin: 04/06/17 09:36 Dose: Not Given Bunnv-2-Cikj Ethyl Esters (Lovaza) 2 gm PO BID [facility] Last Admin: 04/06/17 09:35 Dose: 2 gm Ondansetron HCl (Zofran Inj) 4 mg IVP Q4 PRN PRN Reason: Nausea/Vomiting Last Admin: 04/06/17 14:24 Dose: 4 mg Pantoprazole Sodium (Protonix Ec Tab) 40 mg PO 0600 [facility] Polyethylene Glycol (Miralax) 17 gm PO DAILY DO Last Admin: 04/06/17 09:35 Dose: 17 gm Tramadol HCl (Ultram) 50 mg PO TID PRN PRN Reason: Pain, Mild (1-3) Last Admin: 04/06/17 09:34 Dose: 50 mg - Constitutional Appears: No Acute Distress - Head Exam Head Exam: ATRAUMATIC, NORMOCEPHALIC - Eye Exam Eye Exam: EOMI - ENT Exam ENT Exam: Mucous Membranes Moist - Neck Exam Neck Exam: absent: Lymphadenopathy - Respiratory Exam Respiratory Exam: Clear to Ausculation Bilateral, NORMAL BREATHING PATTERN. absent: Rales, Rhonchi, Wheezes, Stridor - Cardiovascular Exam Cardiovascular Exam: +S1, +S2. absent: JVD, Murmur - GI/Abdominal Exam GI & Abdominal Exam: Soft, Tenderness, Normal Bowel Sounds Additional comments: no palpable organomegaly - Extremities Exam Extremities Exam: absent: Pedal Edema, Tenderness - Neurological Exam Neurological Exam: Alert, Awake, Oriented x3 - Psychiatric Exam Psychiatric exam: Normal Affect, Normal Mood - Skin Additional comments: No Juandice Assessment and Plan - Assessment and Plan (Free Text) Assessment: Patient is a 42 year old male with PMH of Hep C, Arthritis, Chronic Pancreatitis , pancreatic cysts, DM, HLD, and chronic back pain who was admitted for abdominal pain 2/2 to pancreatitis due to possible ineffective pancreatic enzyme supplementation. CT came significant for hepatic steatosis with hepatosplenomegaly, hypodense cystic lesion of pancreatic body (known finding), wall thickening of stomach and duodenum, suggestive of gastroenteritis, biliary dilatation, and varices. Plan: 1. Abdomnial pain likely 2/2 to pancreatitis - NPO- may have ice chips and take medications PO - IVF NS @ 150 - pain control morphine - zofran - continue home pancreatic enzymes when diet is started - GI consulted, recs appreciated -Lactated Ringer (per GI) -Consider change of pain medication per GI 2. Diabetes - accu checks q6 hours - levemir 20 units, patient normally takes 30 units of 70/30 and 20 units humalog x 2 - ISS 3. Hyperlipidemia - continue home lovaza - continue home lipitor - continue home gemfibrozil - continue home Colesevelam 4. PPX - SCD - protonixs Disposition: Patient still has moderate severe abdominal pain. He will stay on a clear liquid diet for another day. We will defer to GI for effective enzyme supplementation. If pain does not improve tomorrow, consider increase or change in pain medications. <Sushila Jarvis - Last Filed: 04/07/17 17:57> Objective - Vital Signs/Intake and Output Vital Signs (last 24 hours): Temp Pulse Resp BP Pulse Ox 98 F 68 20 116/64 98 04/07/17 15:53 04/07/17 15:53 04/07/17 15:53 04/07/17 15:53 04/07/17 15:53 Intake and Output: 04/07/17 04/07/17 06:59 18:59 Intake Total 2200 1340 Balance 2200 1340 - Medications Medications: Current Medications Atorvastatin Calcium (Lipitor) 20 mg PO DIN [facility] Last Admin: 04/06/17 17:10 Dose: 20 mg Gemfibrozil (Lopid) 600 mg PO BID [facility] Last Admin: 04/07/17 09:25 Dose: 600 mg Lactated Ringer's (Lactated Ringer's) 1,000 mls @ 150 mls/hr IV .Q6H40M [facility] Last Admin: 04/07/17 09:27 Dose: 150 mls/hr Insulin Detemir (Levemir) 20 unit SC DAILY [facility] Last Admin: 04/07/17 10:18 Dose: 20 unit Insulin Human Lispro (Humalog Med) 0 units SC ACHS [facility] PRN Reason: Protocol Last Admin: 04/07/17 12:07 Dose: 1 units Morphine Sulfate (Morphine) 2 mg IVP Q4 PRN PRN Reason: Pain, moderate (4-7) Last Admin: 04/07/17 13:39 Dose: 2 mg Colesevelam Hcl [ Welchol] 625 Mg- Home Med 625 mg PO BID [facility] Last Admin: 04/07/17 09:23 Dose: Not Given Alcet-2-Wkal Ethyl Esters (Lovaza) 2 gm PO BID [facility] Last Admin: 04/07/17 09:25 Dose: 2 gm Ondansetron HCl (Zofran Inj) 4 mg IVP Q4 PRN PRN Reason: Nausea/Vomiting Last Admin: 04/07/17 13:40 Dose: 4 mg Pantoprazole Sodium (Protonix Ec Tab) 40 mg PO 0600 [facility] Last Admin: 04/07/17 06:15 Dose: 40 mg Polyethylene Glycol (Miralax) 17 gm PO DAILY DO Last Admin: 04/07/17 09:25 Dose: 17 gm Tramadol HCl (Ultram) 50 mg PO TID PRN PRN Reason: Pain, Mild (1-3) Last Admin: 04/06/17 09:34 Dose: 50 mg - Labs Labs: 04/07/17 06:35 04/07/17 06:35 Attending/Attestation - Attestation I have personally seen and examined this patient.: Yes I have fully participated in the care of the patient.: Yes I have reviewed all pertinent clinical information, including history, physical exam and plan: Yes Notes (Text): I have seen and examined patient at bedside with the resident. Agree with the above note with the following additions/ exceptions: Briefly this is 42 year old male with history of chronic pancreatitis, hypertriglyceridemia, IDDM, multiple pancreatic pseudocyst resection, cholecystectomy, appendectomy and known & untreated Hep C who was admitted for pancreatitis. Patient will be made npo and start IVF and analgesics. GI consult appreciated. Continue insulin for DM and dyslipidemia medications. Upon discharge patient will follow up with Dr Awad. Dr Sushila Jarvis
[2017-04-07] MEDS: Lactated Ringer's 1,000 ML IV SCH ×4 (04:00→22:09)
[2017-04-07] MEDS: Morphine 2 mg/ml ISec IVP PRN ×5 (04:10→22:04)
[2017-04-07] MEDS: Pantoprazole 40 mg EC Tab PO SCH (06:15)
[2017-04-07 07:20] LABS: BASO # 0.03 K/mm3 (0.0-2.0); BASO % 0.9 % (0.0-3.0); EOS # 0.1 (0.0-0.7); EOS % 3.1 % (1.5-5.0); GRAN # 1.53 (1.4-6.5); GRAN % 47.6 % (50.0-68.0); HEMOGLOBIN 11.3 gm/dL (14.0-18.0); LYMPH # 1.4 (1.2-3.4); LYMPH % 42.5 % (22.0-35.0); MEAN CELL VOLUME 76.2 fL (80.0-105.0); MEAN CORPUSCULAR HEMOGLOBIN 25.1 pg (25.0-35.0); MEAN CORPUSCULAR HGB CONC 32.9 g/dl (31.0-37.0); MEAN PLATELET VOLUME 10.8 fl (7.0-11.0); MONO # 0.2 (0.1-0.6); MONO % 5.9 % (1.0-6.0); PLATELET COUNT 125 10^3/uL (120.0-450.0); RED CELL DISTRIBUTION WIDTH 14.2 % (11.5-14.5); WHITE BLOOD COUNT 3.2 10^3/ul (4.5-11.0)
[2017-04-07 07:29] VITALS: RESP 20
[2017-04-07 07:38] LABS: ALB/GLOB RATIO 1.2 (1.1-1.8); ALBUMIN 3.4 g/dL (3.0-4.8); ALT/SGPT 28 U/L (7-56); AST/SGOT 28 U/L (15-59); BLOOD UREA NITROGEN 5 mg/dL (7-21); CALCIUM 8.6 mg/dL (8.4-10.5); GFR AFRICAN-AMERICAN > 60; GFR NON-AFRICAN AMERICAN > 60
[2017-04-07] MEDS: COLESEVELAM HCL 625 MG PO SCH ×2 (09:23→17:26)
[2017-04-07] MEDS: Insulin Lispro (humaLOG) MEDIUM Coverage SC SCH ×4 (09:24→21:28)
[2017-04-07] MEDS: Omega-3-Acid Ethyl Esters 1 GM Cap PO SCH ×2 (09:25→17:19)
[2017-04-07] MEDS: POLYETHYLENE GLYCOL 3350 17 GM/Dose PACKET PO SCH (09:25)
--- NOTE | 2017-04-07 10:09 | PN ---
DATE: 04/07/2017 SUBJECTIVE: I saw the patient this morning. 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 The patient is making a very slow progress on the current therapeutic regimen, still complaining of abdominal pain and nausea. PHYSICAL EXAMINATION VITAL SIGNS: I reviewed this patient's vital signs. ABDOMEN: No change in abdominal exam. This patient is still experiencing discomfort, periumbilical, epigastric as well as the right upper quadrant. OVERALL ASSESSMENT: This is a 42-year-old patient with pancreatitis, history of pseudocyst which has increased in size relative to previous, status post a partial pancreatic dissection. The patient expressed a desire to increase diet intake today. May consider very small volume solids at his request only if the nausea and pain permit. Note that he must have pancreatic enzyme therapy if he decides to advance diet. Note that, I informed him to contact the compassion program for his Zantac, pancreatic enzyme therapy. This way, he might be able to get his preferred pancreatic enzyme supplement for free. Lucian Scott DO
[2017-04-07] MEDS: Insulin Detemir 100 units/ml Vial (Levemir) SC SCH (10:18)
--- NOTE | 2017-04-07 15:31 | CP.PCM.PN ---
<Vani Urbina - Last Filed: 04/07/17 15:28> Subjective - Date & Time of Evaluation Date of Evaluation: 04/07/17 Time of Evaluation: 15:28 - Subjective Subjective: Patient has been seen and examined. He reports no improvement of his abdominal pain. Denies any Fever, chills, chest pain, Sob, urinary or bowel changes. Objective - Vital Signs/Intake and Output Vital Signs (last 24 hours): Temp Pulse Resp BP Pulse Ox 98.4 F 53 L 20 137/85 99 04/07/17 07:28 04/07/17 07:28 04/07/17 07:28 04/07/17 07:28 04/07/17 07:28 Intake and Output: 04/07/17 04/07/17 06:59 18:59 Intake Total 2200 1340 Balance 2200 1340 - Medications Medications: Current Medications Atorvastatin Calcium (Lipitor) 20 mg PO DIN [facility] Last Admin: 04/06/17 17:10 Dose: 20 mg Gemfibrozil (Lopid) 600 mg PO BID [facility] Last Admin: 04/07/17 09:25 Dose: 600 mg Lactated Ringer's (Lactated Ringer's) 1,000 mls @ 150 mls/hr IV .Q6H40M [facility] Last Admin: 04/07/17 09:27 Dose: 150 mls/hr Insulin Detemir (Levemir) 20 unit SC DAILY [facility] Last Admin: 04/07/17 10:18 Dose: 20 unit Insulin Human Lispro (Humalog Med) 0 units SC ACHS [facility] PRN Reason: Protocol Last Admin: 04/07/17 12:07 Dose: 1 units Morphine Sulfate (Morphine) 2 mg IVP Q4 PRN PRN Reason: Pain, moderate (4-7) Last Admin: 04/07/17 13:39 Dose: 2 mg Colesevelam Hcl [ Welchol] 625 Mg- Home Med 625 mg PO BID [facility] Last Admin: 04/07/17 09:23 Dose: Not Given [id number] Ethyl Esters (Lovaza) 2 gm PO BID [facility] Last Admin: 04/07/17 09:25 Dose: 2 gm Ondansetron HCl (Zofran Inj) 4 mg IVP Q4 PRN PRN Reason: Nausea/Vomiting Last Admin: 04/07/17 13:40 Dose: 4 mg Pantoprazole Sodium (Protonix Ec Tab) 40 mg PO 0600 [facility] Last Admin: 04/07/17 06:15 Dose: 40 mg Polyethylene Glycol (Miralax) 17 gm PO DAILY [facility] Last Admin: 04/07/17 09:25 Dose: 17 gm Tramadol HCl (Ultram) 50 mg PO TID PRN PRN Reason: Pain, Mild (1-3) Last Admin: 04/06/17 09:34 Dose: 50 mg - Labs Labs: 04/07/17 06:35 04/07/17 06:35 - Constitutional Appears: Well, No Acute Distress - Head Exam Head Exam: ATRAUMATIC, NORMOCEPHALIC - Eye Exam Eye Exam: EOMI Additional comments: no scleral icterus - Respiratory Exam Respiratory Exam: Clear to Ausculation Bilateral, NORMAL BREATHING PATTERN. absent: Rales, Rhonchi, Wheezes, Stridor - Cardiovascular Exam Cardiovascular Exam: RRR, +S1, +S2 - GI/Abdominal Exam GI & Abdominal Exam: Soft, Normal Bowel Sounds. absent: Tenderness - Extremities Exam Extremities Exam: absent: Pedal Edema - Neurological Exam Neurological Exam: Alert, Awake, Oriented x3 - Psychiatric Exam Psychiatric exam: Normal Affect, Normal Mood Assessment and Plan - Assessment and Plan (Free Text) Assessment: Patient is a 42 year old male with PMH of Hep C, Arthritis, Chronic Pancreatitis , pancreatic cysts, DM, HLD, and chronic back pain who was admitted for abdominal pain 2/2 to pancreatitis due to possible ineffective pancreatic enzyme supplementation. CT came significant for hepatic steatosis with hepatosplenomegaly, hypodense cystic lesion of pancreatic body (known finding), wall thickening of stomach and duodenum, suggestive of gastroenteritis, biliary dilatation, and varices. Plan: Plan: 1. Abdomnial pain likely 2/2 to pancreatitis - IVF NS @ 150 - pain control morphine - zofran - GI consulted, recs appreciated -Lactated Ringer (per GI) -Consider change of pain medication per GI -Advanced to full liquied diet and start Creon before each meal. 2. Diabetes - accu checks q6 hours - levemir 20 units, patient normally takes 30 units of 70/30 and 20 units humalog x 2 - ISS 3. Hyperlipidemia - continue home lovaza - continue home lipitor - continue home gemfibrozil - continue home Colesevelam 4. PPX - SCD - protonixs Disposition: Patient still has moderate severe abdominal pain. We will advance him to a full liquid diet. He will take his enzymes with each diet. <Sushila Jarvis - Last Filed: 04/08/17 10:23> Objective - Vital Signs/Intake and Output Vital Signs (last 24 hours): Temp Pulse Resp BP Pulse Ox 97.7 F 44 L 20 125/73 97 04/08/17 08:00 04/08/17 08:00 04/08/17 08:00 04/08/17 08:00 04/08/17 08:00 Intake and Output: 04/08/17 04/08/17 06:59 18:59 Intake Total 960 Balance 960 - Medications Medications: Current Medications Atorvastatin Calcium (Lipitor) 20 mg PO DIN [facility] Last Admin: 04/07/17 17:19 Dose: 20 mg Gemfibrozil (Lopid) 600 mg PO BID [facility] Last Admin: 04/07/17 17:19 Dose: 600 mg Lactated Ringer's (Lactated Ringer's) 1,000 mls @ 150 mls/hr IV .Q6H40M [facility] Last Admin: 04/08/17 06:08 Dose: 150 mls/hr Insulin Detemir (Levemir) 20 unit SC DAILY [facility] Last Admin: 04/07/17 10:18 Dose: 20 unit Insulin Human Lispro (Humalog Med) 0 units SC ACHS [facility] PRN Reason: Protocol Last Admin: 04/08/17 08:00 Dose: Not Given Morphine Sulfate (Morphine) 2 mg IVP Q4 PRN PRN Reason: Pain, moderate (4-7) Last Admin: 04/08/17 06:50 Dose: 2 mg Colesevelam Hcl [ Welchol] 625 Mg- Home Med 625 mg PO BID [facility] Last Admin: 04/07/17 17:26 Dose: Not Given Non-Formulary Medication (Lipase/Protease/Amylase [Kiel Leal 36,000 Units Capsule ]) 1 each PO TID [facility] [id number] Ethyl Esters (Lovaza) 2 gm PO BID [facility] Last Admin: 04/07/17 17:19 Dose: 2 gm Ondansetron HCl (Zofran Inj) 4 mg IVP Q4 PRN PRN Reason: Nausea/Vomiting Last Admin: 04/08/17 06:50 Dose: 4 mg Pantoprazole Sodium (Protonix Ec Tab) 40 mg PO 0600 DO Last Admin: 04/08/17 06:08 Dose: 40 mg Polyethylene Glycol (Miralax) 17 gm PO DAILY DO Last Admin: 04/07/17 09:25 Dose: 17 gm Tramadol HCl (Ultram) 50 mg PO TID PRN PRN Reason: Pain, Mild (1-3) Last Admin: 04/06/17 09:34 Dose: 50 mg - Labs Labs: 04/08/17 06:55 04/08/17 06:55 Attending/Attestation - Attestation I have personally seen and examined this patient.: Yes I have fully participated in the care of the patient.: Yes I have reviewed all pertinent clinical information, including history, physical exam and plan: Yes Notes (Text): I have seen and examined patient at bedside with the resident. Agree with the above note with the following additions/ exceptions: Briefly this is 42 year old male with history of chronic pancreatitis, hypertriglyceridemia, IDDM, multiple pancreatic pseudocyst resection, cholecystectomy, appendectomy and known & untreated Hep C who was admitted for pancreatitis. Patient was on clear liquid diet and is requesting for diet to be advanced. Also complains of watery diarrhea x4. Reports abdominal pain is still there and is only slightly improved. Will advance patient to full liquid and observe closely. Hold miralax. GI consult appreciated. It was advised by Dr Scott that he should consult his pvt GI to give him zenpep instead of creon as it was working for him. Continue insulin for DM and dyslipidemia medications. Upon discharge patient will follow up with Dr Awad. Dr Sushila Jarvis
[2017-04-08] MEDS: Morphine 2 mg/ml ISec IVP PRN ×4 (02:56→15:49)
[2017-04-08] MEDS: Lactated Ringer's 1,000 ML IV SCH (06:08)
[2017-04-08] MEDS: Pantoprazole 40 mg EC Tab PO SCH (06:08)
--- NOTE | 2017-04-08 07:15 | PN ---
DATE: 04/08/2017 SUBJECTIVE: I saw this patient this morning. He is a 42-year-old male admitted with signs and symptoms of abdominal pain, nausea and vomiting due to pancreatitis. The patient is still complaining about pain, concerned about having a liquid type diarrhea. He would like to advance his diet to at least small portions of soft if he is able to get pancreatic enzyme supplementation sometime later on this morning. PHYSICAL EXAMINATION: VITAL SIGNS: I reviewed this patient's vital signs. HEENT: Significant for dry mouth. HEART: Regular rhythm. ABDOMEN: Significant for tenderness in the epigastric area right upper quadrant. The remainder of the abdomen exam indicates a soft abdomen. He has made some progress over the past several days on his current therapeutic regimen. OVERALL ASSESSMENT: He is a 42-year-old male admitted with signs and symptoms of pancreatitis, making progress on the current therapeutic regimen. Would like to have his diet advanced to very small portions of soft supplemented with pancreatic enzymes if available, would try and anticipate this today if at all possible. *------*. Lucian Scott DO
[2017-04-08] MEDS: Insulin Lispro (humaLOG) MEDIUM Coverage SC SCH ×3 (08:00→17:13)
[2017-04-08 08:01] LABS: BASO # 0.03 K/mm3 (0.0-2.0); BASO % 0.9 % (0.0-3.0); EOS # 0.1 (0.0-0.7); EOS % 3.7 % (1.5-5.0); GRAN # 1.62 (1.4-6.5); GRAN % 49.4 % (50.0-68.0); HEMOGLOBIN 11.4 gm/dL (14.0-18.0); LYMPH # 1.3 (1.2-3.4); MEAN CELL VOLUME 76.8 fL (80.0-105.0); MEAN CORPUSCULAR HEMOGLOBIN 25.4 pg (25.0-35.0); MEAN PLATELET VOLUME 10.9 fl (7.0-11.0); MONO # 0.2 (0.1-0.6); PLATELET COUNT 132 10^3/uL (120.0-450.0); RBC 4.49 10^6/uL (3.5-6.1); RED CELL DISTRIBUTION WIDTH 14.2 % (11.5-14.5); WHITE BLOOD COUNT 3.3 10^3/ul (4.5-11.0)
[2017-04-08 08:14] LABS: ALB/GLOB RATIO 1.1 (1.1-1.8); ALBUMIN 3.5 g/dL (3.0-4.8); ALT/SGPT 33 U/L (7-56); AST/SGOT 32 U/L (15-59); BLOOD UREA NITROGEN 4 mg/dL (7-21); CALCIUM 9.1 mg/dL (8.4-10.5); GFR AFRICAN-AMERICAN > 60; GFR NON-AFRICAN AMERICAN > 60
[2017-04-08 09:00] VITALS: BP 125/73; PULSE 44; TEMP 97.7; O2SAT 97
[2017-04-08] MEDS ORDERED: LIPASE PO SCH ×2 (10:00)
[2017-04-08] MEDS ORDERED: [UNRECOGNIZED DRUG - OTHER] PO SCH ×2 (10:00)
[2017-04-08] MEDS ORDERED: PROTEASE PO SCH ×2 (10:00)
[2017-04-08] MEDS ORDERED: AMYLASE PO SCH ×2 (10:00)
[2017-04-08] MEDS: AMYLASE PO SCH ×3 (10:55→17:13)
[2017-04-08] MEDS: LIPASE PO SCH ×3 (10:55→17:13)
[2017-04-08] MEDS: PROTEASE PO SCH ×3 (10:55→17:13)
[2017-04-08] MEDS: [UNRECOGNIZED DRUG - OTHER] PO SCH ×3 (10:55→17:13)
[2017-04-08] MEDS: Insulin Detemir 100 units/ml Vial (Levemir) SC SCH (10:56)
[2017-04-08] MEDS: COLESEVELAM HCL 625 MG PO SCH ×2 (10:56→17:13)
[2017-04-08] MEDS: Omega-3-Acid Ethyl Esters 1 GM Cap PO SCH ×2 (10:57→17:14)
[2017-04-08] MEDS: POLYETHYLENE GLYCOL 3350 17 GM/Dose PACKET PO SCH (10:57)
--- NOTE | 2017-04-09 05:23 | CP.PCM.DIS ---
<BOB CASTILLO - Last Filed: 04/09/17 05:03> Provider - Provider Date of Admission: 04/06/17 13:34 Attending physician: Sushila Jarvis MD Time Spent in preparation of Discharge (in minutes): 45 Hospital Course - Lab Results Lab Results: Most Recent Lab Values WBC 3.3 10^3/ul (4.5-11.0) L 04/08/17 06:55 RBC 4.49 10^6/uL (3.5-6.1) 04/08/17 06:55 Hgb 11.4 gm/dL (14.0-18.0) L 04/08/17 06:55 Hct 34.5 % (42.0-52.0) L 04/08/17 06:55 MCV 76.8 fL (80.0-105.0) L 04/08/17 06:55 MCH 25.4 pg (25.0-35.0) 04/08/17 06:55 MCHC 33.0 g/dl (31.0-37.0) 04/08/17 06:55 RDW 14.2 % (11.5-14.5) 04/08/17 06:55 Plt Count 132 10^3/uL (120.0-450.0) 04/08/17 06:55 MPV 10.9 fl (7.0-11.0) 04/08/17 06:55 Gran % 49.4 % (50.0-68.0) L 04/08/17 06:55 Lymph % (Auto) 39.0 % (22.0-35.0) H 04/08/17 06:55 [place] % (Auto) 7.0 % (1.0-6.0) H 04/08/17 06:55 Eos % (Auto) 3.7 % (1.5-5.0) 04/08/17 06:55 Baso % (Auto) 0.9 % (0.0-3.0) 04/08/17 06:55 Gran # 1.62 (1.4-6.5) 04/08/17 06:55 Lymph # 1.3 (1.2-3.4) 04/08/17 06:55 [place] # 0.2 (0.1-0.6) 04/08/17 06:55 Eos # 0.1 (0.0-0.7) 04/08/17 06:55 Baso # 0.03 K/mm3 (0.0-2.0) 04/08/17 06:55 Neutrophils % (Manual) 37 % (50.0-70.0) L 04/06/17 06:40 Lymphocytes % (Manual) 55 % (22.0-35.0) H 04/06/17 06:40 Monocytes % (Manual) 7 % (1.0-6.0) H 04/06/17 06:40 Eosinophils % (Manual) 1 % (0.0-3.0) 04/06/17 06:40 Platelet Evaluation Normal (NORMAL) 04/06/17 06:40 Sodium 142 mmol/L (132-148) 04/08/17 06:55 Potassium 3.6 mmol/L (3.6-5.0) 04/08/17 06:55 Chloride 104 mmol/L (98-107) 04/08/17 06:55 Carbon Dioxide 28 mmol/L (21-33) 04/08/17 06:55 Anion Gap 14 (10-20) 04/08/17 06:55 BUN 4 mg/dL (7-21) L 04/08/17 06:55 Creatinine 0.7 mg/dL (0.5-1.4) 04/08/17 06:55 Est GFR ( Amer) > 60 04/08/17 06:55 Est GFR (Non-Af Amer) > 60 04/08/17 06:55 POC Glucose (mg/dL) 243 mg/dL (65-110) H 04/08/17 15:46 Random Glucose 111 mg/dL (70-110) H 04/08/17 06:55 Calcium 9.1 mg/dL (8.4-10.5) 04/08/17 06:55 Phosphorus 3.9 mg/dL (2.5-4.5) 04/05/17 05:20 Magnesium 1.8 mg/dL (1.7-2.2) 04/05/17 05:20 Total Bilirubin 0.6 mg/dL (0.2-1.3) 04/08/17 06:55 AST 32 U/L (15-59) 04/08/17 06:55 ALT 33 U/L (7-56) 04/08/17 06:55 Alkaline Phosphatase 60 U/L (38-133) 04/08/17 06:55 Total Protein 6.6 g/dL (5.8-8.3) 04/08/17 06:55 Albumin 3.5 g/dL (3.0-4.8) 04/08/17 06:55 Globulin 3.1 gm/dL 04/08/17 06:55 Albumin/Globulin Ratio 1.1 (1.1-1.8) 04/08/17 06:55 Triglycerides 230 mg/dL (35-160) H 04/06/17 07:00 Cholesterol 133 mg/dL (130-200) 04/05/17 05:20 LDL Cholesterol Direct 71 mg/dL (0-129) 04/05/17 05:20 HDL Cholesterol 22 mg/dL (29-60) L 04/05/17 05:20 Amylase 48 U/L (35-125) 04/06/17 07:00 Lipase 87 U/L (23-300) 04/06/17 07:00 Urine Color Yellow (YELLOW) 04/05/17 00:20 Urine Appearance Clear (CLEAR) 04/05/17 00:20 Urine pH 6.0 (4.7-8.0) 04/05/17 00:20 Ur Specific Boring >= 1.030 (1.005-1.035) 04/05/17 00:20 Urine Protein Trace mg/dL (<30 mg/dL) H 04/05/17 00:20 Urine Glucose (UA) 250 mg/dL (NEGATIVE) H 04/05/17 00:20 Urine Ketones Trace mg/dL (NEGATIVE) H 04/05/17 00:20 Urine Blood Negative (NEGATIVE) 04/05/17 00:20 Urine Nitrate Negative (NEGATIVE) 04/05/17 00:20 Urine Bilirubin Negative (NEGATIVE) 04/05/17 00:20 Urine Urobilinogen 1.0 E.U./dL (<1 E.U./dL) H 04/05/17 00:20 Ur Leukocyte Esterase Negative Elba/uL (NEGATIVE) 04/05/17 00:20 Urine RBC 0 - 2 /hpf (0-2) 04/05/17 00:20 Urine WBC Negative /hpf (0-6) 04/05/17 00:20 Ur Epithelial Cells 4 - 5 /hpf (0-5) 04/05/17 00:20 Urine Bacteria Mod (NEG) 04/05/17 00:20 Urine Other Mucus 04/05/17 00:20 - Hospital Course Hospital Course: Mr. Oh is a 42 year old male with PMH of Hep C, Arthritis, Pancreatitis, pancreatic cysts, DM, HLD, arthritis, and chronic back pain who presents to the ED for evaluation of intractable abdominal pain. It is important to note that the patient has been experiencing abdominal pain with nausea over the past 8 months s/p his pancreatic pseudocyst resection however it has been exacerbated over the past 2 days with no provoking event. Pt was recently discharged from [facility] 2 weeks ago with the for the same complaints. He was now having associated nausea with 8 episodes of nonbloody emesis. Patient admits to complying with his pancreatic enzyme supplementations. Denies fever, chills, chest pain, SOB, diarrhea, constipation, and urinary symptoms. Pt has PSHx of Appendectomy, Cholecystectomy, Pancreatic Pseudocyst resection and currently smokes [address] abd shwoed stable findings of biliary duct dilation, splenomegaly, splenic and portal varices, decreased size of pancreatic pseudocyst and questional infections/inflammatory process at gastroduodenal junction. Patient was transferred to medicine floors for further care and management. On the floors, the pt stated that he wants to try a liquid diet. GI was consulted and their recs were appreciated. the Pt complained of dysuria, but UA was negative; pt was started on LR for hydration, and his pain was controlled. the pt was receiving his pancreatic enzymes and his diet was advanced to very small soft volume solids at the pt's request and with GI's recs on 04/07. The pt tolerated it well and denied n/v/d and his abd pain was controlled. This morning the patient denies any worsening of his abd pain, and his n/v are controlled. denies fevers, headaches, blood in stools or any urinary changes. Pt is being discharged with Tramadol and Zofran for pain and nausea control. Pt instructed to take Creon with each meals, and to have soft small meals as tolerated. Pt should f/u with PMD w/i 1 week and continue home meds. - Date & Time of H&P Date of H&P: 04/05/17 Time of H&P: 03:45 Discharge Exam - Head Exam Head Exam: ATRAUMATIC, NORMAL INSPECTION, NORMOCEPHALIC - Eye Exam Eye Exam: EOMI, Normal appearance, PERRL. absent: Conjunctival injection, Nystagmus, Scleral icterus Pupil Exam: NORMAL ACCOMODATION - ENT Exam ENT Exam: Mucous Membranes Moist, Normal Exam - Neck Exam Neck exam: Normal Inspection - Respiratory Exam Respiratory Exam: Clear to PA & Lateral, NORMAL BREATHING PATTERN. absent: Accessory Muscle Use, Chest Wall Tenderness, Prolonged Expiratory Phase, Rales, Rhonchi, Wheezes, Respiratory Distress, Stridor - Cardiovascular Exam Cardiovascular Exam: RRR, +S1, +S2. absent: Diastolic murmur, Gallop, JVD, Rubs , Systolic Murmur - GI/Abdominal Exam GI & Abdominal Exam: Normal Bowel Sounds, Soft. absent: Distended, Rebound, Rigid, Tenderness - Extremities Exam Extremities exam: full ROM, normal inspection - Neurological Exam Neurological exam: Alert, Normal Gait, Oriented x3 - Psychiatric Exam Psychiatric exam: Normal Affect, Normal Mood - Skin Skin Exam: Normal Color, Warm Discharge Plan - Discharge Medications Prescriptions: Ondansetron HCl [Zofran] 4 mg PO Q6H #12 tablet traMADol [Ultram] 50 mg PO TID PRN #12 tab PRN Reason: Pain, Moderate (4-7) - Follow Up Plan Condition: FAIR Disposition: HOME/ ROUTINE Instructions: Pancrelipase (By mouth), Tramadol (By mouth), Pancreatitis (DC), Heart Healthy Diet (DC), Diabetes Mellitus Type 2 in Adults (DC), What is Insulin (DC), Abdominal Pain (ED) Additional Instructions: Mr. Oh, We recommend that you: 1. Take Creon with each meal. Have small soft meals as tolerated. 2. Take Tramadol 3 times per day as needed for pain. You have been provided a script for this medication. 3. Take Zofran 4 times per day as needed for nausea. You have been provided a script for this medication. 3. Follow up with PMD in 1 week. 4. Continue home medications. Thank you Bob Castillo PGY1 Dr. Jarvis, Attending Physician Referrals: Lucian Scott DO [Staff Provider] - <Sushila Jarvis - Last Filed: 04/09/17 10:23> Provider - Provider Date of Admission: 04/06/17 13:34 Attending physician: Sushila Jarvis MD Hospital Course - Lab Results Lab Results: Most Recent Lab Values WBC 3.3 10^3/ul (4.5-11.0) L 04/08/17 06:55 RBC 4.49 10^6/uL (3.5-6.1) 04/08/17 06:55 Hgb 11.4 gm/dL (14.0-18.0) L 04/08/17 06:55 Hct 34.5 % (42.0-52.0) L 04/08/17 06:55 MCV 76.8 fL (80.0-105.0) L 04/08/17 06:55 MCH 25.4 pg (25.0-35.0) 04/08/17 06:55 MCHC 33.0 g/dl (31.0-37.0) 04/08/17 06:55 RDW 14.2 % (11.5-14.5) 04/08/17 06:55 Plt Count 132 10^3/uL (120.0-450.0) 04/08/17 06:55 MPV 10.9 fl (7.0-11.0) 04/08/17 06:55 Gran % 49.4 % (50.0-68.0) L 04/08/17 06:55 Lymph % (Auto) 39.0 % (22.0-35.0) H 04/08/17 06:55 [place] % (Auto) 7.0 % (1.0-6.0) H 04/08/17 06:55 Eos % (Auto) 3.7 % (1.5-5.0) 04/08/17 06:55 Baso % (Auto) 0.9 % (0.0-3.0) 04/08/17 06:55 Gran # 1.62 (1.4-6.5) 04/08/17 06:55 Lymph # 1.3 (1.2-3.4) 04/08/17 06:55 [place] # 0.2 (0.1-0.6) 04/08/17 06:55 Eos # 0.1 (0.0-0.7) 04/08/17 06:55 Baso # 0.03 K/mm3 (0.0-2.0) 04/08/17 06:55 Neutrophils % (Manual) 37 % (50.0-70.0) L 04/06/17 06:40 Lymphocytes % (Manual) 55 % (22.0-35.0) H 04/06/17 06:40 Monocytes % (Manual) 7 % (1.0-6.0) H 04/06/17 06:40 Eosinophils % (Manual) 1 % (0.0-3.0) 04/06/17 06:40 Platelet Evaluation Normal (NORMAL) 04/06/17 06:40 Sodium 142 mmol/L (132-148) 04/08/17 06:55 Potassium 3.6 mmol/L (3.6-5.0) 04/08/17 06:55 Chloride 104 mmol/L (98-107) 04/08/17 06:55 Carbon Dioxide 28 mmol/L (21-33) 04/08/17 06:55 Anion Gap 14 (10-20) 04/08/17 06:55 BUN 4 mg/dL (7-21) L 04/08/17 06:55 Creatinine 0.7 mg/dL (0.5-1.4) 04/08/17 06:55 Est GFR ( Amer) > 60 04/08/17 06:55 Est GFR (Non-Af Amer) > 60 04/08/17 06:55 POC Glucose (mg/dL) 243 mg/dL (65-110) H 04/08/17 15:46 Random Glucose 111 mg/dL (70-110) H 04/08/17 06:55 Calcium 9.1 mg/dL (8.4-10.5) 04/08/17 06:55 Phosphorus 3.9 mg/dL (2.5-4.5) 04/05/17 05:20 Magnesium 1.8 mg/dL (1.7-2.2) 04/05/17 05:20 Total Bilirubin 0.6 mg/dL (0.2-1.3) 04/08/17 06:55 AST 32 U/L (15-59) 04/08/17 06:55 ALT 33 U/L (7-56) 04/08/17 06:55 Alkaline Phosphatase 60 U/L (38-133) 04/08/17 06:55 Total Protein 6.6 g/dL (5.8-8.3) 04/08/17 06:55 Albumin 3.5 g/dL (3.0-4.8) 04/08/17 06:55 Globulin 3.1 gm/dL 04/08/17 06:55 Albumin/Globulin Ratio 1.1 (1.1-1.8) 04/08/17 06:55 Triglycerides 230 mg/dL (35-160) H 04/06/17 07:00 Cholesterol 133 mg/dL (130-200) 04/05/17 05:20 LDL Cholesterol Direct 71 mg/dL (0-129) 04/05/17 05:20 HDL Cholesterol 22 mg/dL (29-60) L 04/05/17 05:20 Amylase 48 U/L (35-125) 04/06/17 07:00 Lipase 87 U/L (23-300) 04/06/17 07:00 Urine Color Yellow (YELLOW) 04/05/17 00:20 Urine Appearance Clear (CLEAR) 04/05/17 00:20 Urine pH 6.0 (4.7-8.0) 04/05/17 00:20 Ur Specific [place]oring >= 1.030 (1.005-1.035) 04/05/17 00:20 Urine Protein Trace mg/dL (<30 mg/dL) H 04/05/17 00:20 Urine Glucose (UA) 250 mg/dL (NEGATIVE) H 04/05/17 00:20 Urine Ketones Trace mg/dL (NEGATIVE) H 04/05/17 00:20 Urine Blood Negative (NEGATIVE) 04/05/17 00:20 Urine Nitrate Negative (NEGATIVE) 04/05/17 00:20 Urine Bilirubin Negative (NEGATIVE) 04/05/17 00:20 Urine Urobilinogen 1.0 E.U./dL (<1 E.U./dL) H 04/05/17 00:20 Ur Leukocyte Esterase Negative [place]ba/uL (NEGATIVE) 04/05/17 00:20 Urine RBC 0 - 2 /hpf (0-2) 04/05/17 00:20 Urine WBC Negative /hpf (0-6) 04/05/17 00:20 Ur Epithelial Cells 4 - 5 /hpf (0-5) 04/05/17 00:20 Urine Bacteria Mod (NEG) 04/05/17 00:20 Urine Other Mucus 04/05/17 00:20 Attending/Attestation - Attestation I have personally seen and examined this patient.: Yes I have fully participated in the care of the patient.: Yes I have reviewed all pertinent clinical information, including history, physical exam and plan: Yes Notes (Text): I have seen and examined patient at bedside with the resident. Agree with the above note with the following additions/ exceptions: Briefly this is 42 year old male with history of chronic pancreatitis, hypertriglyceridemia, IDDM, multiple pancreatic pseudocyst resection, cholecystectomy, appendectomy and known & untreated Hep C who was admitted for pancreatitis. Patient has been tolerating soft diet. Reports abdominal pain is still there however it is improved. GI consult appreciated. It was advised by Dr Scott that he should consult his pvt GI to give him zenpep instead of creon as it was working for him. Continue insulin for DM and dyslipidemia medications. Upon discharge patient will follow up with Dr Awda. Tramadol script was given. Dr Sushila Jarvis
== END 2017-04-08 18:43 | disposition home or self-care (01) | DRG 557 ==
LOC: ED 21:44 → ERH 04-05 03:39 → 5RNO 04-05 06:25 → OBSVTOIN 04-06 13:34
PROVIDERS: ADMIT Internal Medicine; ATTEND Hospitalist
DX: K86.1 Other chronic pancreatitis (principal); K86.3 Pseudocyst of pancreas; K76.0 Fatty (change of) liver, not elsewhere classified; R16.2 Hepatomegaly with splenomegaly, not elsewhere classified; E86.0 Dehydration; B19.20 Unspecified viral hepatitis C without hepatic coma; E78.1 Pure hyperglyceridemia; E10.9 Type 1 diabetes mellitus without complications; M19.90 Unspecified osteoarthritis, unspecified site; G89.29 Other chronic pain

== ENCOUNTER 2017-04-25 13:07 | Observation (INO) | payer OTHER ==
[2017-04-25 13:08] VITALS: BMI 23.6
[2017-04-25] MEDS ORDERED: Sodium Chloride 0.9% 1,000 ML IV STA (13:22)
[2017-04-25] MEDS ORDERED: Morphine 4 mg/ml ISec IVP STA (13:22)
--- NOTE | 2017-04-25 13:34 | ED PDOC ---
Arrival/HPI - General Chief Complaint: GI Problem Time Seen by Provider: 04/25/17 13:14 Historian: Patient - History of Present Illness Narrative History of Present Illness (Text): 04/25/17 13:27 A 42 year old male, whose past medical history includes pancreatitis, pancreatic cysts and diabetes, presents to the emergency department complaining of worsening abdominal pain since yesterday. Patient reports associated nausea and episodes of non-bilious non-bloody vomiting. Patient states he has had multiple abdominal surgeries and has experienced drastic increase in his chronic abdominal pain. Patient denies any fever, chills, diarrhea, urinary symptoms, back pain, chest pain, shortness of breath or any other complaints. Patient continues to take pancreatic enzymes. PMD: Dr. Hightower Time/Duration: Other (Yesterday) Symptom Course: Worsening Quality: Other Context: Home Past Medical History - Provider Review Nursing Documentation Reviewed: Yes - Infectious Disease Hx of Infectious Diseases: None - Tetanus Immunization Tetanus Immunization: Unknown - Cardiac Hx Cardiac Disorders: Yes Hx Cardiac Arrhythmia: Yes (bradycardia) Hx Hypertension: Yes Hx Peripheral Vascular Disease: Yes - Pulmonary Hx Respiratory Disorders: Yes (chronic dry cough x 8 months since sx) - Neurological Hx Neurological Disorder: Yes Hx Dizziness: Yes (falls from dizziness since 2013) - HEENT Hx HEENT Disorder: Yes (blurry vision) Other/Comment: [place] due to earwax - Renal Hx Renal Disorder: Yes Hx Kidney Stones: Yes - Endocrine/Metabolic Hx Endocrine Disorders: Yes Hx Diabetes Mellitus Type 1: Yes - Hematological/Oncological Hx Blood Disorders: Yes Hx Hepatitis C: Yes - Integumentary Hx Dermatological Disorder: Yes Other/Comment: chronic itchy skin since "surgery 8 months ago" - Musculoskeletal/Rheumatological Hx Falls: Yes ("dizzy and falling since 2014") - Gastrointestinal Hx Gastrointestinal Disorders: Yes (chronic constipation) Hx Gall Bladder Disease: Yes (gallstones) Hx Gastroesophageal Reflux: Yes Hx Pancreatitis: Yes - Genitourinary/Gynecological Hx Genitourinary Disorders: Yes (burning on urination "sometimes') Hx Urinary Tract Infection: Yes - Psychiatric Hx Depression: Yes Hx Substance Use: No - Surgical History Hx Appendectomy: Yes Hx Cholecystectomy: Yes Other/Comment: 2008 in [place] ap ruptured damagec pancreas, had sx on pancreas and gb sx at [facility] 8 months ago - Anesthesia Hx Anesthesia: Yes - Suicidal Assessment Feels Threatened In Home Enviroment: No Family/Social History - Physician Review Nursing Documentation Reviewed: Yes Family/Social History: No Known Family HX Smoking Status: Smoker Currrent Status Unknown Hx Alcohol Use: No Hx Substance Use: No Hx Substance Use Treatment: No Allergies/Home Meds Allergies/Adverse Reactions: Allergies dy Allergy (Mild, Uncoded 04/25/17 13:16) ITCHING hair color dye Allergy (Uncoded 04/25/17 13:16) RASH Home Medications: Home Meds Medication Instructions Recorded Confirmed Colesevelam HCl [Welchol] 625 mg PO BID 01/25/17 04/05/17 Gabapentin [Neurontin] 1 cap PO DAILY 01/25/17 04/05/17 Review of Systems - Physician Review All systems were reviewed & negative as marked: Yes - Review of Systems Constitutional: absent: Fevers, Night Sweats Respiratory: absent: SOB Cardiovascular: absent: Chest Pain Gastrointestinal: Abdominal Pain, Nausea, Vomiting. absent: Diarrhea Genitourinary Male: absent: Dysuria, Frequency, Hematuria, Urinary Output Changes Musculoskeletal: absent: Back Pain Physical Exam Vital Signs Reviewed: Yes Vital Signs Temp Pulse Resp BP Pulse Ox 04/25/17 17:00 60 14 137/87 100 04/25/17 15:08 97.4 F L 54 L 18 117/67 100 04/25/17 13:15 97.5 F L 57 L 18 141/69 100 Temperature: Afebrile Blood Pressure: Normal Pulse: Bradycardic Respiratory Rate: Normal Appearance: Positive for: Well-Appearing, Non-Toxic, Comfortable Pain Distress: None Mental Status: Positive for: Alert and Oriented X 3 - Systems Exam Head: Present: Atraumatic, Normocephalic Pupils: Present: PERRL Extroacular Muscles: Present: EOMI Conjunctiva: Present: Normal Mouth: Present: Moist Mucous Membranes Pharnyx: No: ERYTHEMA, EXUDATE, TONSILS ENLARGED Neck: Present: Normal Range of Motion Respiratory/Chest: Present: Clear to Auscultation, Good Air Exchange. No: Respiratory Distress, Accessory Muscle Use Cardiovascular: Present: Regular Rate and Rhythm, Normal S1, S2. No: Murmurs Abdomen: Present: Tenderness (Diffuse tenderness to palpation), Normal Bowel Sounds. No: Distention, Peritoneal Signs Back: Present: Normal Inspection Upper Extremity: Present: Normal Inspection. No: Cyanosis, Edema Lower Extremity: Present: Normal Inspection. No: Edema Neurological: Present: GCS=15, CN II-XII Intact, Speech Normal Skin: Present: Warm, Dry, Normal Color. No: Rashes Psychiatric: Present: Alert, Oriented x 3, Normal Insight, Normal Concentration Medical Decision Making ED Course and Treatment: 04/25/17 13:27 Impression: A 42 year old male with diffuse abdominal pain. Patient notes nausea and vomiting. Differential Diagnosis included but are not limited to: Pancreatitis Plan: -- Labs -- Urinalysis -- Morphine, Zofran and IV fluids -- Reassess and disposition Prior Visits: Notes and results from previous visits were reviewed. Patient last seen in the ED on 04/05/17 abdominal pain, nausea and vomiting. Progress Notes: 04/25/17 18:12 Patient has been monitored in ED for 4 hours and po challenged. On re- evaluation, patient complaining of persistent vomiting and abdominal pain after eating. Spoke with Dr. Gallo, who states to admit patient under the hospitalist for intractable abdominal pain. - Lab Interpretations Lab Results: 04/25/17 14:30 04/25/17 14:30 Lab Results 04/25/17 14:30: Sodium 136, Potassium 4.4, Chloride 98, Carbon Dioxide 28, Anion Gap 14, BUN 12, Creatinine 0.6, Est GFR ( Amer) > 60, Est GFR (Non- Af Amer) > 60, Random Glucose 297 H, Calcium 9.3, Phosphorus 3.5, Magnesium 1.8 , Total Bilirubin 0.8, AST 27, ALT 38, Alkaline Phosphatase 90, Total Protein 8.0, Albumin 4.3, Globulin 3.6, Albumin/Globulin Ratio 1.2, Lipase 83 04/25/17 14:30: WBC 7.9 D, RBC 5.36, Hgb 13.9 L, Hct 39.7 L, MCV 74.1 L, MCH 25.9, MCHC 35.0, RDW 14.2, Plt Count 174, MPV 11.2 H, Gran % 77.0 H, Lymph % ( Auto) 18.4 L, [place] % (Auto) 3.8, Eos % (Auto) 0.4 L, Baso % (Auto) 0.4, Gran # 6.12, Lymph # 1.5, [place] # 0.3, Eos # 0.0, Baso # 0.03 I have reviewed the lab results: Yes - Medication Orders Current Medication Orders: Discontinued Medications Sodium Chloride (Sodium Chloride 0.9%) 1,000 mls @ 999 mls/hr IV .Q1H1M STA Stop: 04/25/17 14:22 Last Admin: 04/25/17 14:32 Dose: 999 mls/hr Morphine Sulfate (Morphine) 4 mg IVP STAT STA Stop: 04/25/17 13:23 Last Admin: 04/25/17 14:31 Dose: 4 mg Ondansetron HCl (Zofran Inj) 4 mg IVP STAT STA Stop: 04/25/17 13:23 Last Admin: 04/25/17 14:32 Dose: 4 mg - Scribe Statement The provider has reviewed the documentation as recorded by the Jeny Martinez Provider Scribe Attestation: All medical record entries made by the Coltibmarii were at my direction and personally dictated by me. I have reviewed the chart and agree that the record accurately reflects my personal performance of the history, physical exam, medical decision making, and the department course for this patient. I have also personally directed, reviewed, and agree with the discharge instructions and disposition. Disposition/Present on Arrival - Present on Arrival Any Indicators Present on Arrival: No History of DVT/PE: No History of Uncontrolled Diabetes: Yes Urinary Catheter: No History of Decub. Ulcer: No History Surgical Site Infection Following: None - Disposition Have Diagnosis and Disposition been Completed?: Yes Diagnosis: Intractable vomiting with nausea, Chronic pancreatitis, Abdominal pain Disposition: HOSPITALIZED Disposition Time: 18:56 Patient Plan: Observation Condition: FAIR
[2017-04-25 14:47] LABS: BASO # 0.03 K/mm3 (0.0-2.0); BASO % 0.4 % (0.0-3.0); EOS % 0.4 % (1.5-5.0); GRAN # 6.12 (1.4-6.5); HEMOGLOBIN 13.9 g/dL (14.0-18.0); LYMPH # 1.5 (1.2-3.4); LYMPH % 18.4 % (22.0-35.0); MEAN CELL VOLUME 74.1 fl (80.0-105.0); MEAN CORPUSCULAR HEMOGLOBIN 25.9 pg (25.0-35.0); MEAN PLATELET VOLUME 11.2 fl (7.0-11.0); MONO # 0.3 (0.1-0.6); MONO % 3.8 % (1.0-6.0); PLATELET COUNT 174 10^3/uL (120.0-450.0); RBC 5.36 10^6/uL (3.5-6.1); RED CELL DISTRIBUTION WIDTH 14.2 % (11.5-14.5); WHITE BLOOD COUNT 7.9 10^3/ul (4.5-11.0)
[2017-04-25 15:13] LABS: ALB/GLOB RATIO 1.2 (1.1-1.8); ALBUMIN 4.3 g/dL (3.0-4.8); ALT/SGPT 38 U/L (7-56); AST/SGOT 27 U/L (15-59); BLOOD UREA NITROGEN 12 mg/dL (7-21); CALCIUM 9.3 mg/dL (8.4-10.5); GFR AFRICAN-AMERICAN > 60; GFR NON-AFRICAN AMERICAN > 60; LIPASE 83 U/L (23-300); MAGNESIUM 1.8 mg/dL (1.7-2.2)
[2017-04-25] MEDS ORDERED: Morphine 4 mg/ml ISec IVP PRN (20:55)
[2017-04-25] MEDS ORDERED: Insulin Human NPH/Reg 70/30 Vial(3 ml) SC SCH (21:15)
[2017-04-25] MEDS: Lactated Ringer's 1,000 ML IV SCH (21:35)
[2017-04-25] MEDS: Insulin Reg-MEDIUM-Coverage SC SCH (21:39)
[2017-04-25 22:53] LABS: INR 1.06 (0.93-1.08); PROTHROMBIN TIME 11.5 Seconds (9.9-11.8)
--- NOTE | 2017-04-25 23:22 | CP.PCM.HP ---
<MONO GARCÍA - Last Filed: 04/25/17 23:39> History of Present Illness - History of Present Illness History of Present Illness: CC: Abdominal Pain HPI: Mr. Oh is a 42 year old male with a past medical history of Hep C, Arthritis, Pancreatitis, pancreatic cysts, DM, HLD, chronic back pain who presented to the ED with complaints of abdominal pain that started three days ago. He describes the pain as sharp and radiating to his back. He reports 30 episodes of NBNB vomiting over the past 24 hours and difficulty tolerating PO intake. It is important to note that the patient has been experiencing abdominal pain with nausea over the past 9 months s/p his pancreatic pseudocyst resection however it has been exacerbated over the past 3 days with no provoking event. Patient admits to complying with his pancreatic enzyme supplementations but reports that due to insurance reasons, his previous enzymes were changed and that his new ones give him diarrhea. Patient denies fever, chills, chest pain, SOB, diarrhea, constipation, and urinary symptoms. PMH: Hepatitis C, Chronic Pancreatitis, DM, HLD, Arthritis, chronic back pain PSH: Appendectomy, Cholecystectomy, Pancreatic Pseudocyst resection Family: Mother-Bone Cancer, Father- from [place] at 53 Social: Current 3 cigars daily, denies alcohol or illicit drug use; lives alone Allergy: Hair Dye Home meds: As per MAR Present on Admission - Present on Admission Any Indicators Present on Admission: No Review of Systems - Review of Systems Review of Systems: Please refer to HPI Past Patient History - Infectious Disease Hx of Infectious Diseases: None - Tetanus Immunizations Tetanus Immunization: Unknown - Past Medical History & Family History Past Medical History?: Yes - Past Social History Smoking Status: Former Smoker - CARDIAC Hx Cardiac Disorders: Yes Hx Cardia Arrhythmia: Yes (bradycardia) Hx Hypercholesterolemia: Yes Hx Hypertension: Yes Hx Peripheral Vascular Disease: Yes - PULMONARY Hx Respiratory Disorders: Yes (chronic dry cough x 8 months since sx) - NEUROLOGICAL Hx Neurological Disorder: Yes Hx Dizziness: Yes (falls from dizziness since 2013) - HEENT Hx HEENT Problems: Yes (blurry vision) Other/Comment: [place] due to earwax - RENAL Hx Kidney Stones: Yes - ENDOCRINE/METABOLIC Hx Endocrine Disorders: Yes Hx Diabetes Mellitus Type 1: Yes - HEMATOLOGICAL/ONCOLOGICAL Hx Blood Disorders: Yes Hx Hepatitis C: Yes - INTEGUMENTARY Hx Dermatological Problems: Yes Other/Comment: chronic itchy skin since "surgery 8 months ago" - MUSCULOSKELETAL/RHEUMATOLOGICAL Hx Falls: Yes ("dizzy and falling since 2013") - GASTROINTESTINAL Hx Gastrointestinal Disorders: Yes (chronic constipation) Hx Gall Bladder Disease: Yes (gallstones) Hx Gastroesophageal Reflux: Yes Hx Pancreatitis: Yes Hx Ulcer: Yes - GENITOURINARY/GYNECOLOGICAL Hx Genitourinary Disorders: Yes (burning on urination "sometimes') Hx Urinary Tract Infection: Yes - PSYCHIATRIC Hx Depression: Yes Hx Substance Use: No - SURGICAL HISTORY Hx Appendectomy: Yes Hx Cholecystectomy: Yes Other/Comment: 2009 in [place] ap ruptured damagec pancreas, had sx on pancreas and gb sx at [facility] 8 months ago - ANESTHESIA Hx Anesthesia: Yes Meds Allergies/Adverse Reactions: Allergies Allergy/AdvReac Type Severity Reaction Status Date / Time dy Allergy Mild ITCHING Uncoded 04/25/17 13:16 hair color dye Allergy RASH Uncoded 04/25/17 13:16 Physical Exam - Constitutional Appears: No Acute Distress - Head Exam Head Exam: NORMAL INSPECTION, NORMOCEPHALIC - Eye Exam Eye Exam: EOMI, Normal appearance, PERRL - ENT Exam ENT Exam: Mucous Membranes Moist, Normal Exam - Neck Exam Neck exam: Positive for: Full Rom, Normal Inspection. Negative for: Lymphadenopathy, Tenderness - Respiratory Exam Respiratory Exam: Clear to Auscultation Bilateral, NORMAL BREATHING PATTERN. absent: Rales, Rhonchi, Wheezes, Respiratory Distress - Cardiovascular Exam Cardiovascular Exam: REGULAR RHYTHM, RRR, +S1, +S2. absent: Tachycardia, Systolic Murmur - GI/Abdominal Exam GI & Abdominal Exam: Hyperactive Bowel Sounds, Soft, Tenderness. absent: Distended, Firm, Guarding, Rebound Additional comments: RUQ and RLQ tenderness to palpation; three surgical scars noted for reported surgical history - Exam Exam: absent: Bladder Distension - Extremities Exam Extremities exam: Positive for: normal capillary refill, normal inspection, pedal pulses present. Negative for: calf tenderness, pedal edema - Back Exam Back exam: absent: CVA tenderness (L), CVA tenderness (R) - Neurological Exam Neurological exam: Alert, Oriented x3 - Psychiatric Exam Psychiatric exam: Normal Affect, Normal Mood - Skin Skin Exam: Dry, Intact, Normal Color, Warm Results - Vital Signs Recent Vital Signs: Last Vital Signs Temp 97.8 F 08/08/17 22:00 Pulse 60 04/25/17 22:00 Resp 18 04/25/17 22:00 BP 123/67 04/25/17 22:00 Pulse Ox 99 04/25/17 22:00 - Labs Result Diagrams: 04/25/17 14:30 04/25/17 14:30 Labs: Laboratory Results - last 24 hr 04/25/17 04/25/17 20:59 22:42 PT 11.5 INR 1.06 POC Glucose (mg/dL) 303 H Assessment & Plan - Assessment and Plan (Free Text) Assessment: 42 year old male with a past medical history of Hep C, Arthritis, Pancreatitis, pancreatic cysts, DM, HLD, chronic back pain who presented to the ED with complaints of abdominal pain that started three days ago Plan: 1. Acute on Chronic Abdominal Pain -likely etiology related to extensive GI surgical/medical history or new change in pancreatic enzymes -cont current pancreatic enzymes for now but need to evaluate possibility of starting previous enzyme therapy -Iron, B12 and Vitamin D levels pending -morphine 2mg q4h for pain control -IVF: LR at 100mls/hr -zofran prn for n/v -NPO overnight, will progress as tolerated starting in AM -GI consulted (Tyler), will follow recommendations 2. History of DM2 -SSI-Low -Levemir 20u SC HS -Fingersticks q6h 3. History of HLD -cont lipitor, Lovasa and Lopid 4. GI/DVT Prophylaxis -Protonix/scd's Patient seen and case discussed with attending, Dr. Woods. - Date & Time Date: 04/25/17 Time: 08:30 <Young Woods P - Last Filed: 04/26/17 07:08> Results - Vital Signs Recent Vital Signs: Last Vital Signs Temp 97.8 F 04/25/17 22:00 Pulse 60 04/25/17 22:00 Resp 18 04/25/17 22:00 BP 123/67 04/25/17 22:00 Pulse Ox 99 04/25/17 22:00 - Labs Result Diagrams: 04/26/17 05:15 04/26/17 05:15 Labs: Laboratory Results - last 24 hr 04/25/17 04/25/17 04/26/17 20:59 22:42 05:15 WBC 4.6 D RBC 4.70 Hgb 12.0 L Hct 35.1 L MCV 74.7 L MCH 25.5 MCHC 34.2 RDW 14.3 Plt Count 136 MPV 10.3 Gran % 49.1 L Lymph % (Auto) 41.1 H [place] % (Auto) 6.2 H Eos % (Auto) 2.9 Baso % (Auto) 0.7 Gran # 2.24 Lymph # 1.9 [place] # 0.3 Eos # 0.1 Baso # 0.03 PT 11.5 INR 1.06 Sodium Potassium Chloride Carbon Dioxide Anion Gap BUN Creatinine Est GFR ( Amer) Est GFR (Non-Af Amer) POC Glucose (mg/dL) 303 H Random Glucose Calcium Total Bilirubin AST ALT Alkaline Phosphatase Total Protein Albumin Globulin Albumin/Globulin Ratio 04/26/17 05:15 WBC RBC Hgb Hct MCV MCH MCHC RDW Plt Count MPV Gran % Lymph % (Auto) [place] % (Auto) Eos % (Auto) Baso % (Auto) Gran # Lymph # [place] # Eos # Baso # PT INR Sodium 133 Potassium 4.3 Chloride 100 Carbon Dioxide 26 Anion Gap 11 BUN 11 Creatinine 0.6 Est GFR ( Amer) > 60 Est GFR (Non-Af Amer) > 60 POC Glucose (mg/dL) Random Glucose 265 H Calcium 8.5 Total Bilirubin 0.7 AST 28 ALT 38 Alkaline Phosphatase 68 Total Protein 6.4 Albumin 3.4 Globulin 3.0 Albumin/Globulin Ratio 1.2 Attending/Attestation - Attestation I have personally seen and examined this patient.: Yes I have fully participated in the care of the patient.: Yes I have reviewed all pertinent clinical information: Yes Notes (Text): Assessment * RUQ pain, epigastric pain, nausea vomiting dd of gastritis, pancreatitis * history of diarrhea with eating suggesting malabsorption syn, with weight loss , need to continue pancreatic enzymes, social eval for authorization * Clinical dehydration * DM probably related to pancreatic damage Plan * IVF, protonix, zofran * GI eval * Social service eval * Vit d, b12, iron levels * hold 70/30 insulin till npo, use about 60 units of inulin, will give 20 units of long acting with sliding scale * See orders for detail.
[2017-04-26] MEDS: Morphine 2 mg/ml ISec IVP PRN ×4 (02:43→20:18)
[2017-04-26 05:52] LABS: BASO # 0.03 K/mm3 (0.0-2.0); BASO % 0.7 % (0.0-3.0); EOS # 0.1 (0.0-0.7); EOS % 2.9 % (1.5-5.0); GRAN # 2.24 (1.4-6.5); GRAN % 49.1 % (50.0-68.0); LYMPH # 1.9 (1.2-3.4); LYMPH % 41.1 % (22.0-35.0); MEAN CELL VOLUME 74.7 fl (80.0-105.0); MEAN CORPUSCULAR HEMOGLOBIN 25.5 pg (25.0-35.0); MEAN CORPUSCULAR HGB CONC 34.2 g/dl (31.0-37.0); MEAN PLATELET VOLUME 10.3 fl (7.0-11.0); MONO # 0.3 (0.1-0.6); MONO % 6.2 % (1.0-6.0); PLATELET COUNT 136 10^3/uL (120.0-450.0); RED CELL DISTRIBUTION WIDTH 14.3 % (11.5-14.5); WHITE BLOOD COUNT 4.6 10^3/ul (4.5-11.0)
[2017-04-26] MEDS: Lactated Ringer's 1,000 ML IV SCH ×2 (06:01→16:07)
[2017-04-26 06:06] LABS: ALB/GLOB RATIO 1.2 (1.1-1.8); ALBUMIN 3.4 g/dL (3.0-4.8); ALT/SGPT 38 U/L (7-56); AST/SGOT 28 U/L (15-59); BLOOD UREA NITROGEN 11 mg/dL (7-21); CALCIUM 8.5 mg/dL (8.4-10.5); GFR AFRICAN-AMERICAN > 60; GFR NON-AFRICAN AMERICAN > 60
[2017-04-26 06:07] LABS: IRON 45 ug/dL (45-180)
[2017-04-26] MEDS ORDERED: Insulin Human NPH/Reg 70/30 Vial(3 ml) SC SCH (07:30)
[2017-04-26] MEDS: Insulin Reg-MEDIUM-Coverage SC SCH ×4 (08:14→22:18)
[2017-04-26] MEDS: PROTEASE PO SCH ×3 (10:07→17:24)
[2017-04-26] MEDS: [UNRECOGNIZED DRUG - OTHER] PO SCH ×3 (10:07→17:24)
[2017-04-26] MEDS: LIPASE PO SCH ×3 (10:07→17:24)
[2017-04-26] MEDS: Omega-3-Acid Ethyl Esters 1 GM Cap PO SCH ×2 (10:07→17:23)
[2017-04-26] MEDS: AMYLASE PO SCH ×3 (10:07→17:24)
[2017-04-26 11:34] LABS: LDL CHOLESTEROL 35 mg/dL (0-129)
[2017-04-26 11:39] LABS: HDL CHOLESTEROL 17 mg/dL (29-60)
--- NOTE | 2017-04-26 12:26 | CP.PCM.CON ---
Addendum entered and electronically signed by Rosalie Conroy DO 04/26/17 15:07 : >continue pancreaze supplements before every meal Original Note: <Rosalie Conroy - Last Filed: 04/26/17 12:29> History of Present Illness - History of Present Illness History of Present Illness: Gastroenterology Fellow/PGY5 Consult Note 42 year old male with history of Hyperlipidemia, Diabetes, constipation, Hepatitis C (treatment naive, genotype 3a, viral load 325709 01/2017), chronic pancreatitis on enzyme supplementation complicated by prior infected pseudocyst resection ([facility] 2015), recurrent pseudocyst January 2017 presenting with abdominal pain, vomiting, and diarrhea. Patient endorses chronic issues with abdominal pain and recurrent vomiting and diarrhea since switch to [facility] from [facility] due to insurance coverage. He states he has been vomiting daily food intake leading to unintentional weight loss. Endorses follow up with [facility] after discharge January 2017 and endorses recommendation of pseudocyst being unresectable due to close proximity to liver. Denies hematemesis, bloating, heartburn, acid reflux, distension, constipation, melena, or hematochezia. Prior EGD 01/2015 showed gastritis, and duodenal bulb duodenitis. Family- denies colon cancer, stomach cancer, liver cancer, pancreatic cancer Social- 3 cigars/day, denies alcohol or illicit drug use Surgery- appendectomy, cholecystectomy, pancreatic pseudocyst resection Review of Systems - Review of Systems Review of Systems: 12-point review of systems negative except for as above Past Patient History - Infectious Disease Hx of Infectious Diseases: None - Tetanus Immunizations Tetanus Immunization: Unknown - Past Medical History & Family History Past Medical History?: Yes - Past Social History Smoking Status: Former Smoker - CARDIAC Hx Cardiac Disorders: Yes Hx Cardia Arrhythmia: Yes (bradycardia) Hx Hypercholesterolemia: Yes Hx Hypertension: Yes Hx Peripheral Vascular Disease: Yes - PULMONARY Hx Respiratory Disorders: Yes (chronic dry cough x 8 months since sx) - NEUROLOGICAL Hx Neurological Disorder: Yes Hx Dizziness: Yes (falls from dizziness since 2013) - HEENT Hx HEENT Problems: Yes (blurry vision) Other/Comment: [place] due to earwax - RENAL Hx Kidney Stones: Yes - ENDOCRINE/METABOLIC Hx Endocrine Disorders: Yes Hx Diabetes Mellitus Type 1: Yes - HEMATOLOGICAL/ONCOLOGICAL Hx Blood Disorders: Yes Hx Hepatitis C: Yes - INTEGUMENTARY Hx Dermatological Problems: Yes Other/Comment: chronic itchy skin since "surgery 8 months ago" - MUSCULOSKELETAL/RHEUMATOLOGICAL Hx Falls: Yes ("dizzy and falling since 2013") - GASTROINTESTINAL Hx Gastrointestinal Disorders: Yes (chronic constipation) Hx Gall Bladder Disease: Yes (gallstones) Hx Gastroesophageal Reflux: Yes Hx Pancreatitis: Yes Hx Ulcer: Yes - GENITOURINARY/GYNECOLOGICAL Hx Genitourinary Disorders: Yes (burning on urination "sometimes') Hx Urinary Tract Infection: Yes - PSYCHIATRIC Hx Depression: Yes Hx Substance Use: No - SURGICAL HISTORY Hx Appendectomy: Yes Hx Cholecystectomy: Yes Other/Comment: 2009 in [place] ap ruptured damagec pancreas, had sx on pancreas and gb sx at [facility] 8 months ago - ANESTHESIA Hx Anesthesia: Yes Meds Allergies/Adverse Reactions: Allergies Allergy/AdvReac Type Severity Reaction Status Date / Time dy Allergy Mild ITCHING Uncoded 04/25/17 13:16 hair color dye Allergy RASH Uncoded 04/25/17 13:16 - Medications Medications: Current Medications Atorvastatin Calcium (Lipitor) 20 mg PO DIN [facility] Gemfibrozil (Lopid) 600 mg PO BID [facility] Last Admin: 04/26/17 10:07 Dose: Not Given Lactated Ringer's (Lactated Ringer's) 1,000 mls @ 100 mls/hr IV .Q10H [facility] Last Admin: 04/26/17 06:01 Dose: 100 mls/hr Insulin Detemir (Levemir) 20 unit SC HS [facility] Insulin Human Regular (Humulin R Med) 0 units SC ACHS [facility] PRN Reason: Protocol Last Admin: 04/26/17 08:14 Dose: Not Given Morphine Sulfate (Morphine) 2 mg IVP Q4H PRN PRN Reason: Pain, moderate (4-7) Last Admin: 04/26/17 11:17 Dose: 2 mg Non-Formulary Medication (Lipase/Protease/Amylase [Kiel Leal 36,000 Units Capsule ]) 1 each PO TID [facility] Last Admin: 04/26/17 10:07 Dose: Not Given Iusnv-8-Lagy Ethyl Esters (Lovaza) 2 gm PO BID [facility] Last Admin: 04/26/17 10:07 Dose: Not Given Ondansetron HCl (Zofran Inj) 4 mg IVP Q4H PRN PRN Reason: Nausea/Vomiting Last Admin: 04/26/17 11:16 Dose: 4 mg Pantoprazole Sodium (Protonix Inj) 40 mg IVP DAILY DO Last Admin: 04/26/17 10:07 Dose: 40 mg Physical Exam - Constitutional Appears: Non-toxic, No Acute Distress - Head Exam Head Exam: ATRAUMATIC, NORMOCEPHALIC - Eye Exam Eye Exam: EOMI, PERRL Pupil Exam: PERRL. absent: Miosis, Mydriatic - ENT Exam ENT Exam: Mucous Membranes Moist, Normal Oropharynx - Neck Exam Neck exam: Positive for: Full Rom, Normal Inspection - Respiratory Exam Respiratory Exam: Clear to Auscultation Bilateral. absent: Rales, Rhonchi, Wheezes - Cardiovascular Exam Cardiovascular Exam: RRR, +S1, +S2. absent: Gallop, Rubs - GI/Abdominal Exam GI & Abdominal Exam: Normal Bowel Sounds, Soft, Tenderness. absent: Distended, Firm, Guarding, Organomegaly, Rebound, Rigid Additional comments: B/L UQ tenderness - Extremities Exam Extremities exam: Positive for: full ROM. Negative for: pedal edema - Neurological Exam Neurological exam: Alert - Psychiatric Exam Psychiatric exam: Normal Affect, Normal Mood - Skin Skin Exam: Dry, Intact, Normal Color, Warm Results - Vital Signs Recent Vital Signs: Last Vital Signs Temp 98.9 F 04/26/17 08:00 Pulse 60 04/26/17 08:00 Resp 20 04/26/17 08:00 BP 105/59 L 04/26/17 08:00 Pulse Ox 99 04/26/17 08:00 - Labs Result Diagrams: 04/26/17 05:15 04/26/17 05:15 Labs: Laboratory Results - last 24 hr 04/25/17 04/25/17 04/26/17 20:59 22:42 05:15 WBC RBC Hgb Hct MCV MCH MCHC RDW Plt Count MPV Gran % Lymph % (Auto) [place] % (Auto) Eos % (Auto) Baso % (Auto) Gran # Lymph # [place] # Eos # Baso # PT 11.5 INR 1.06 Sodium Potassium Chloride Carbon Dioxide Anion Gap BUN Creatinine Est GFR ( Amer) Est GFR (Non-Af Amer) POC Glucose (mg/dL) 303 H Random Glucose Calcium Iron 45 Total Bilirubin AST ALT Alkaline Phosphatase Total Protein Albumin Globulin Albumin/Globulin Ratio Triglycerides Cholesterol LDL Cholesterol Direct HDL Cholesterol 25-OH Vitamin D Total < 12.8 L 04/26/17 04/26/17 04/26/17 05:15 05:15 07:43 WBC 4.6 D RBC 4.70 Hgb 12.0 L Hct 35.1 L MCV 74.7 L MCH 25.5 MCHC 34.2 RDW 14.3 Plt Count 136 MPV 10.3 Gran % 49.1 L Lymph % (Auto) 41.1 H [place] % (Auto) 6.2 H Eos % (Auto) 2.9 Baso % (Auto) 0.7 Gran # 2.24 Lymph # 1.9 [place] # 0.3 Eos # 0.1 Baso # 0.03 PT INR Sodium 133 Potassium 4.3 Chloride 100 Carbon Dioxide 26 Anion Gap 11 BUN 11 Creatinine 0.6 Est GFR ( Amer) > 60 Est GFR (Non-Af Amer) > 60 POC Glucose (mg/dL) 338 H Random Glucose 265 H Calcium 8.5 Iron Total Bilirubin 0.7 AST 28 ALT 38 Alkaline Phosphatase 68 Total Protein 6.4 Albumin 3.4 Globulin 3.0 Albumin/Globulin Ratio 1.2 Triglycerides 538 H Cholesterol 127 L LDL Cholesterol Direct 35 HDL Cholesterol 17 L 25-OH Vitamin D Total 04/26/17 11:37 WBC RBC Hgb Hct MCV MCH MCHC RDW Plt Count MPV Gran % Lymph % (Auto) [place] % (Auto) Eos % (Auto) Baso % (Auto) Gran # Lymph # [place] # Eos # Baso # PT INR Sodium Potassium Chloride Carbon Dioxide Anion Gap BUN Creatinine Est GFR ( Amer) Est GFR (Non-Af Amer) POC Glucose (mg/dL) 300 H Random Glucose Calcium Iron Total Bilirubin AST ALT Alkaline Phosphatase Total Protein Albumin Globulin Albumin/Globulin Ratio Triglycerides Cholesterol LDL Cholesterol Direct HDL Cholesterol 25-OH Vitamin D Total Assessment & Plan - Assessment and Plan (Free Text) Assessment: 42 year old male with history of Hyperlipidemia, Diabetes, constipation, Hepatitis C (treatment naive, genotype 3a, viral load [id number] 01/2017), chronic pancreatitis on enzyme supplementation complicated by prior infected pseudocyst resection ([facility] 2015), recurrent pseudocyst January 2017 presenting with abdominal pain, vomiting, and diarrhea. GI consultation for chronic pancreatitis. Prior EGD 01/2015 showed gastritis, and duodenal bulb duodenitis. Plan: >stable pancreatic body pseudocyst >recent CT A/P 04/03/17 measurement of 2.2 x 2.1 cm -previous measurements 03/19/17- 2.2cm, 01/2017- 2.7cm >continue Creon inpatient- controlled environment to monitor response and compliance >supportive care: pain control, PPI, anti-emetics >check Cdiff to rule out infectious source with recent hospitalizations >low fat, small frequent meals >will require elective EUS and Hepatitis C follow up and management <Franck Jiménez MD - Last Filed: 04/26/17 19:12> Meds - Medications Medications: Current Medications Atorvastatin Calcium (Lipitor) 20 mg PO DIN [facility] Last Admin: 04/26/17 16:07 Dose: 20 mg Gemfibrozil (Lopid) 600 mg PO BID [facility] Last Admin: 04/26/17 17:22 Dose: 600 mg Lactated Ringer's (Lactated Ringer's) 1,000 mls @ 100 mls/hr IV .Q10H [facility] Last Admin: 04/26/17 16:07 Dose: 100 mls/hr Insulin Detemir (Levemir) 20 unit SC [facility] Insulin Human Regular (Humulin R Med) 0 units SC ACHS [facility] PRN Reason: Protocol Last Admin: 04/26/17 17:23 Dose: 7 units Morphine Sulfate (Morphine) 2 mg IVP Q4H PRN PRN Reason: Pain, moderate (4-7) Last Admin: 04/26/17 16:07 Dose: 2 mg Non-Formulary Medication (Lipase/Protease/Amylase [Kiel Dr 36,000 Units Capsule ]) 1 each PO AC [facility] Last Admin: 04/26/17 17:24 Dose: Not Given Hpezg-0-Orid Ethyl Esters (Lovaza) 2 gm PO BID [facility] Last Admin: 04/26/17 17:23 Dose: 2 gm Ondansetron HCl (Zofran Inj) 4 mg IVP Q4H PRN PRN Reason: Nausea/Vomiting Last Admin: 04/26/17 16:07 Dose: 4 mg Pantoprazole Sodium (Protonix Inj) 40 mg IVP DAILY [facility] Last Admin: 04/26/17 10:07 Dose: 40 mg Results - Vital Signs Recent Vital Signs: Last Vital Signs Temp 96.9 F L 04/26/17 16:30 Pulse 51 L 04/26/17 16:30 Resp 20 04/26/17 16:30 BP 110/77 04/26/17 16:30 Pulse Ox 99 04/26/17 16:30 - Labs Result Diagrams: 04/26/17 05:15 04/26/17 05:15 Labs: Laboratory Results - last 24 hr 04/25/17 04/25/17 04/26/17 20:59 22:42 05:15 WBC RBC Hgb Hct MCV MCH MCHC RDW Plt Count MPV Gran % Lymph % (Auto) [place] % (Auto) Eos % (Auto) Baso % (Auto) Gran # Lymph # [place] # Eos # Baso # PT 11.5 INR 1.06 Sodium Potassium Chloride Carbon Dioxide Anion Gap BUN Creatinine Est GFR ( Amer) Est GFR (Non-Af Amer) POC Glucose (mg/dL) 303 H Random Glucose Calcium Iron 45 Total Bilirubin AST ALT Alkaline Phosphatase Total Protein Albumin Globulin Albumin/Globulin Ratio Triglycerides Cholesterol LDL Cholesterol Direct HDL Cholesterol Vitamin B12 25-OH Vitamin D Total < 12.8 L 04/26/17 04/26/17 04/26/17 05:15 05:15 07:43 WBC 4.6 D RBC 4.70 Hgb 12.0 L Hct 35.1 L MCV 74.7 L MCH 25.5 MCHC 34.2 RDW 14.3 Plt Count 136 MPV 10.3 Gran % 49.1 L Lymph % (Auto) 41.1 H [place] % (Auto) 6.2 H Eos % (Auto) 2.9 Baso % (Auto) 0.7 Gran # 2.24 Lymph # 1.9 [place] # 0.3 Eos # 0.1 Baso # 0.03 PT INR Sodium 133 Potassium 4.3 Chloride 100 Carbon Dioxide 26 Anion Gap 11 BUN 11 Creatinine 0.6 Est GFR ( Amer) > 60 Est GFR (Non-Af Amer) > 60 POC Glucose (mg/dL) 338 H Random Glucose 265 H Calcium 8.5 Iron Total Bilirubin 0.7 AST 28 ALT 38 Alkaline Phosphatase 68 Total Protein 6.4 Albumin 3.4 Globulin 3.0 Albumin/Globulin Ratio 1.2 Triglycerides 538 H Cholesterol 127 L LDL Cholesterol Direct 35 HDL Cholesterol 17 L Vitamin B12 227 L 25-OH Vitamin D Total 04/26/17 04/26/17 11:37 16:17 WBC RBC Hgb Hct MCV MCH MCHC RDW Plt Count MPV Gran % Lymph % (Auto) [place] % (Auto) Eos % (Auto) Baso % (Auto) Gran # Lymph # [place] # Eos # Baso # PT INR Sodium Potassium Chloride Carbon Dioxide Anion Gap BUN Creatinine Est GFR ( Amer) Est GFR (Non-Af Amer) POC Glucose (mg/dL) 300 H 305 H Random Glucose Calcium Iron Total Bilirubin AST ALT Alkaline Phosphatase Total Protein Albumin Globulin Albumin/Globulin Ratio Triglycerides Cholesterol LDL Cholesterol Direct HDL Cholesterol Vitamin B12 25-OH Vitamin D Total Attending/Attestation - Attestation I have personally seen and examined this patient.: Yes I have fully participated in the care of the patient.: Yes I have reviewed all pertinent clinical information: Yes Notes (Text): 04/26/17 19:08 Patient seen with GI fellow. This is a 41 year old male with h/o HCV treatment naive, Hypertriglyceridemia, chronic pancreatitis with stable pseudocyst admitted with recurrent abdominal pain non compliant with outpatient appointments. Chronic diarrhea which he states is due to changing the brand of pancreatic enzymes. Will send stool infectious work up and restart pancreatic enzymes 25,000 units with each meal. Low fat diet. Pain management. Needs outpatient follow up with Dr Salomon. Thank you for letting us participate in the care of your patient
--- NOTE | 2017-04-26 13:41 | CP.PCM.PN ---
<Erich Riddle - Last Filed: 04/26/17 15:47> Subjective - Date & Time of Evaluation Date of Evaluation: 04/26/17 Time of Evaluation: 13:33 - Subjective Subjective: Pt s/e at bedside on F. No acute events overnight. Pt complains of abdominal pain on his right side of abdomen and mid-epigastric pain. Patient reports poor oral intake over the past few weeks to month. He admits to loosing up to 10-15 lbs in the past month. He indicates he is able to tolerate a liquid diet but is unable to tolerate solid foods. Patient reports his pain is controlled with current medication. Patient denies chest pain, shob, fever and chills. He does indicate mild nausea. Objective - Vital Signs/Intake and Output Vital Signs (last 24 hours): Temp Pulse Resp BP Pulse Ox 98.9 F 60 20 105/59 L 99 04/26/17 08:00 04/26/17 08:00 04/26/17 08:00 04/26/17 08:00 04/26/17 08:00 Intake and Output: 04/26/17 04/26/17 06:59 18:59 Intake Total 1140 500 Balance 1140 500 - Medications Medications: Current Medications Atorvastatin Calcium (Lipitor) 20 mg PO DIN [facility] Gemfibrozil (Lopid) 600 mg PO BID [facility] Last Admin: 04/26/17 10:07 Dose: Not Given Lactated Ringer's (Lactated Ringer's) 1,000 mls @ 100 mls/hr IV .Q10H [facility] Last Admin: 04/26/17 06:01 Dose: 100 mls/hr Insulin Detemir (Levemir) 20 unit SC HS [facility] Insulin Human Regular (Humulin R Med) 0 units SC ACHS [facility] PRN Reason: Protocol Last Admin: 04/26/17 12:17 Dose: 7 units Morphine Sulfate (Morphine) 2 mg IVP Q4H PRN PRN Reason: Pain, moderate (4-7) Last Admin: 04/26/17 11:17 Dose: 2 mg Non-Formulary Medication (Lipase/Protease/Amylase [Kiel Leal 36,000 Units Capsule ]) 1 each PO TID [facility] Last Admin: 04/26/17 10:07 Dose: Not Given Pkuzb-7-Wlqp Ethyl Esters (Lovaza) 2 gm PO BID [facility] Last Admin: 04/26/17 10:07 Dose: Not Given Ondansetron HCl (Zofran Inj) 4 mg IVP Q4H PRN PRN Reason: Nausea/Vomiting Last Admin: 04/26/17 11:16 Dose: 4 mg Pantoprazole Sodium (Protonix Inj) 40 mg IVP DAILY [facility] Last Admin: 04/26/17 10:07 Dose: 40 mg - Labs Labs: 04/26/17 05:15 04/26/17 05:15 PT 11.5 Seconds (9.9-11.8) 04/25/17 22:42 INR 1.06 (0.93-1.08) 04/25/17 22:42 - Constitutional Appears: Well - Head Exam Head Exam: ATRAUMATIC, NORMAL INSPECTION - Eye Exam Eye Exam: EOMI, PERRL - ENT Exam ENT Exam: Mucous Membranes Moist - Neck Exam Neck Exam: Full ROM - Respiratory Exam Respiratory Exam: Clear to Ausculation Bilateral, NORMAL BREATHING PATTERN - Cardiovascular Exam Cardiovascular Exam: REGULAR RHYTHM, +S1, +S2 - GI/Abdominal Exam GI & Abdominal Exam: Tenderness (right sided, mid epigastic), Normal Bowel Sounds Additional comments: surgical scars present along RUQ, RLQ and midline of abdomen - Extremities Exam Extremities Exam: Full ROM, Normal Capillary Refill, Normal Inspection - Back Exam Back Exam: NORMAL INSPECTION - Neurological Exam Neurological Exam: Alert, Awake, CN II-XII Intact, Oriented x3 Neuro motor strength exam: Left Upper Extremity: 5, Right Upper Extremity: 5, Left Lower Extremity: 5, Right Lower Extremity: 5 - Psychiatric Exam Psychiatric exam: Normal Affect, Normal Mood - Skin Skin Exam: Dry, Normal Color Assessment and Plan - Assessment and Plan (Free Text) Assessment: Patient is a 42 year old male with PMH of Hep C, Chronic pancreatitis, DM, HLD, Arthritis, and Chronic Back pain who presents with abdominal pain secondary to his chronic pancreatitis Plan: Chronic Pancreatitis - Previous CT from 04/05/2017 showing hypodense fatty infiltartion of the liver. Hepatomegaly, Splenomegaly, pancreatic cyst located in the region of the pancreatic body measuring 2.2 x 2.1 cm that is hypodense - Stable pancreatic pseudocyst - IVF with LR 100ml/hr - Clear liquid diet - pain management with morphine - protonix, zofran - GI evaluation, appreciate recs - Continue pacreatic enzymes if possible diarrhea - C.diff toxin - Stool culture DM2 - Continue home medicine <Ayaz Gallo - Last Filed: 04/26/17 17:33> Objective - Vital Signs/Intake and Output Vital Signs (last 24 hours): Temp Pulse Resp BP Pulse Ox 96.9 F L 51 L 20 110/77 99 04/26/17 16:30 04/26/17 16:30 04/26/17 16:30 04/26/17 16:30 04/26/17 16:30 Intake and Output: 04/26/17 04/26/17 06:59 18:59 Intake Total 1140 860 Balance 1140 860 - Medications Medications: Current Medications Atorvastatin Calcium (Lipitor) 20 mg PO DIN [facility] Last Admin: 04/26/17 16:07 Dose: 20 mg Gemfibrozil (Lopid) 600 mg PO BID [facility] Last Admin: 04/26/17 17:22 Dose: 600 mg Lactated Ringer's (Lactated Ringer's) 1,000 mls @ 100 mls/hr IV .Q10H [facility] Last Admin: 04/26/17 16:07 Dose: 100 mls/hr Insulin Detemir (Levemir) 20 unit SC HS [facility] Insulin Human Regular (Humulin R Med) 0 units SC ACHS [facility] PRN Reason: Protocol Last Admin: 04/26/17 17:23 Dose: 7 units Morphine Sulfate (Morphine) 2 mg IVP Q4H PRN PRN Reason: Pain, moderate (4-7) Last Admin: 04/26/17 16:07 Dose: 2 mg Non-Formulary Medication (Lipase/Protease/Amylase [Kiel Leal 36,000 Units Capsule ]) 1 each PO AC [facility] Last Admin: 04/26/17 17:24 Dose: Not Given Akuyu-6-Ycnn Ethyl Esters (Lovaza) 2 gm PO BID [facility] Last Admin: 04/26/17 17:23 Dose: 2 gm Ondansetron HCl (Zofran Inj) 4 mg IVP Q4H PRN PRN Reason: Nausea/Vomiting Last Admin: 04/26/17 16:07 Dose: 4 mg Pantoprazole Sodium (Protonix Inj) 40 mg IVP DAILY [facility] Last Admin: 04/26/17 10:07 Dose: 40 mg - Labs Labs: 04/26/17 05:15 04/26/17 05:15 PT 11.5 Seconds (9.9-11.8) 04/25/17 22:42 INR 1.06 (0.93-1.08) 04/25/17 22:42 Attending/Attestation - Attestation I have personally seen and examined this patient.: Yes I have fully participated in the care of the patient.: Yes I have reviewed all pertinent clinical information, including history, physical exam and plan: Yes Notes (Text): 04/26/17 17:30 attending note; Patient seen and examined with resident. Patient is a 42 year old male with PMH of Hep C, Chronic pancreatitis, DM, HLD, Arthritis, and Chronic Back pain who presents with abdominal pain secondary to his chronic pancreatitis. The patient had pancreatic pseudocyst in the past. Patient had previous surgery at [facility]. Continue IV fluids, pain medication. Patient has trouble getting his specific Pancrease prescription due to insurance reasons. We will get delinquency prevention social worker evaluation. GI evaluation requested. Upon discharge the patient will follow-up with PMD DR. goodwin. the patient needs close follow-up with [facility] for further treatment options.
[2017-04-26] MEDS ORDERED: Insulin Detemir 100 units/ml Vial (Levemir) SC SCH (22:00)
[2017-04-27] MEDS: Morphine 2 mg/ml ISec IVP PRN ×4 (00:12→13:39)
[2017-04-27] MEDS: Lactated Ringer's 1,000 ML IV SCH (02:38)
[2017-04-27 07:06] LABS: BASO # 0.03 K/mm3 (0.0-2.0); BASO % 0.9 % (0.0-3.0); EOS # 0.1 (0.0-0.7); EOS % 3.4 % (1.5-5.0); GRAN % 42.7 % (50.0-68.0); HEMOGLOBIN 11.5 g/dL (14.0-18.0); LYMPH # 1.5 (1.2-3.4); LYMPH % 46.6 % (22.0-35.0); MEAN CELL VOLUME 75.3 fl (80.0-105.0); MEAN CORPUSCULAR HEMOGLOBIN 25.2 pg (25.0-35.0); MEAN CORPUSCULAR HGB CONC 33.4 g/dl (31.0-37.0); MEAN PLATELET VOLUME 10.7 fl (7.0-11.0); MONO # 0.2 (0.1-0.6); MONO % 6.4 % (1.0-6.0); PLATELET COUNT 122 10^3/uL (120.0-450.0); RBC 4.57 10^6/uL (3.5-6.1); RED CELL DISTRIBUTION WIDTH 14.4 % (11.5-14.5); WHITE BLOOD COUNT 3.3 10^3/ul (4.5-11.0)
[2017-04-27 07:10] LABS: ALB/GLOB RATIO 1.2 (1.1-1.8); ALBUMIN 3.5 g/dL (3.0-4.8); ALT/SGPT 37 U/L (7-56); AST/SGOT 29 U/L (15-59); BLOOD UREA NITROGEN 7 mg/dL (7-21); CALCIUM 8.7 mg/dL (8.4-10.5); GFR AFRICAN-AMERICAN > 60; GFR NON-AFRICAN AMERICAN > 60
[2017-04-27] MEDS: AMYLASE PO SCH ×3 (08:00→18:10)
[2017-04-27] MEDS: PROTEASE PO SCH ×3 (08:00→18:10)
[2017-04-27] MEDS: LIPASE PO SCH ×3 (08:00→18:10)
[2017-04-27] MEDS: [UNRECOGNIZED DRUG - OTHER] PO SCH ×3 (08:00→18:10)
[2017-04-27] MEDS: Insulin Reg-MEDIUM-Coverage SC SCH ×3 (09:23→16:54)
[2017-04-27] MEDS: Omega-3-Acid Ethyl Esters 1 GM Cap PO SCH ×3 (09:36→18:12)
--- NOTE | 2017-04-27 16:30 | CP.PCM.DIS ---
<Pj Riddleophe - Last Filed: 04/27/17 16:26> Provider - Provider Date of Admission: 04/25/17 18:11 Attending physician: Sushila Jarvis MD Primary care physician: Caryl Hightower MD Consults: Gastroenterology: Dr. Franck Jiménez Time Spent in preparation of Discharge (in minutes): 30 Diagnosis - Discharge Diagnosis (1) Chronic pancreatitis Status: Chronic Priority: High Hospital Course - Lab Results Lab Results: Most Recent Lab Values WBC 3.3 10^3/ul (4.5-11.0) L D 04/27/17 06:45 RBC 4.57 10^6/uL (3.5-6.1) 04/27/17 06:45 Hgb 11.5 g/dL (14.0-18.0) L 04/27/17 06:45 Hct 34.4 % (42.0-52.0) L 04/27/17 06:45 MCV 75.3 fl (80.0-105.0) L 04/27/17 06:45 MCH 25.2 pg (25.0-35.0) 04/27/17 06:45 MCHC 33.4 g/dl (31.0-37.0) 04/27/17 06:45 RDW 14.4 % (11.5-14.5) 04/27/17 06:45 Plt Count 122 10^3/uL (120.0-450.0) 04/27/17 06:45 MPV 10.7 fl (7.0-11.0) 04/27/17 06:45 Gran % 42.7 % (50.0-68.0) L 04/27/17 06:45 Lymph % (Auto) 46.6 % (22.0-35.0) H 04/27/17 06:45 [place] % (Auto) 6.4 % (1.0-6.0) H 04/27/17 06:45 Eos % (Auto) 3.4 % (1.5-5.0) 04/27/17 06:45 Baso % (Auto) 0.9 % (0.0-3.0) 04/27/17 06:45 Gran # 1.40 (1.4-6.5) 04/27/17 06:45 Lymph # 1.5 (1.2-3.4) 04/27/17 06:45 [place] # 0.2 (0.1-0.6) 04/27/17 06:45 Eos # 0.1 (0.0-0.7) 04/27/17 06:45 Baso # 0.03 K/mm3 (0.0-2.0) 04/27/17 06:45 PT 11.5 Seconds (9.9-11.8) 04/25/17 22:42 INR 1.06 (0.93-1.08) 04/25/17 22:42 Sodium 138 mmol/L (132-148) 04/27/17 06:45 Potassium 3.8 mmol/L (3.6-5.0) 04/27/17 06:45 Chloride 102 mmol/L (95-110) 04/27/17 06:45 Carbon Dioxide 29 mmol/L (21-33) 04/27/17 06:45 Anion Gap 11 (10-20) 04/27/17 06:45 BUN 7 mg/dL (7-21) 04/27/17 06:45 Creatinine 0.6 mg/dL (0.5-1.4) 04/27/17 06:45 Est GFR ( Amer) > 60 04/27/17 06:45 Est GFR (Non-Af Amer) > 60 04/27/17 06:45 POC Glucose (mg/dL) 237 mg/dL (65-110) H 04/27/17 16:10 Random Glucose 147 mg/dL (70-110) H 04/27/17 06:45 Calcium 8.7 mg/dL (8.4-10.5) 04/27/17 06:45 Phosphorus 3.5 mg/dL (2.5-4.5) 04/25/17 14:30 Magnesium 1.8 mg/dL (1.7-2.2) 04/25/17 14:30 Iron 45 ug/dL (45-180) 04/26/17 05:15 Total Bilirubin 0.7 mg/dL (0.2-1.3) 04/27/17 06:45 AST 29 U/L (15-59) 04/27/17 06:45 ALT 37 U/L (7-56) 04/27/17 06:45 Alkaline Phosphatase 60 U/L (38-133) 04/27/17 06:45 Total Protein 6.5 g/dL (5.8-8.3) 04/27/17 06:45 Albumin 3.5 g/dL (3.0-4.8) 04/27/17 06:45 Globulin 3.0 gm/dL 04/27/17 06:45 Albumin/Globulin Ratio 1.2 (1.1-1.8) 04/27/17 06:45 Triglycerides 538 mg/dL (35-160) H 04/26/17 05:15 Cholesterol 127 mg/dL (130-200) L 04/26/17 05:15 LDL Cholesterol Direct 35 mg/dL (0-129) 04/26/17 05:15 HDL Cholesterol 17 mg/dL (29-60) L 04/26/17 05:15 Lipase 83 U/L (23-300) 04/25/17 14:30 Vitamin B12 227 pg/mL (239-931) L 04/26/17 05:15 25-OH Vitamin D Total < 12.8 NG/ML (30.0-100.0) L 04/26/17 05:15 - Hospital Course Hospital Course: Pt is a 42 year old male with PMH significant for Hyperlipidemia, Diabetes, Hepatitis, Chronic Pancreatitis on enzyme supplementation with prior pseudocyst resection and recurrent pseudocyst who was admitted for abdominal pain, vomiting and diarrhea. The patient was made NPO, given IVF, IV pain medication and anti-emetics for his symptoms. GI was consulted and evaluated the patient for his chronic gastritis and significant GI history. They recommended against intervention on his stable pancreatic body pseudocyst and to his continue his Creon pancreatic enzyme inpatient. They also recommended elective EUS with follow up and management of his Hepatitis C. Patient's diet was advanced to clear liquids and then to soft liquids and well tolerated. His abdominal discomfort subsided over his stay and he was rehydrated effectively. The patient was evaluated to be hemodynamically stable and able to tolerate his diet and was discharged from the hospital and instructed to follow up outpatient with his PMD and Probation Counselor. - Date & Time of H&P Date of H&P: 04/25/17 Time of H&P: 23:13 Discharge Exam - Head Exam Head Exam: ATRAUMATIC, NORMAL INSPECTION - Eye Exam Eye Exam: EOMI, PERRL - ENT Exam ENT Exam: Mucous Membranes Moist, Normal Exam - Respiratory Exam Respiratory Exam: Clear to PA & Lateral, NORMAL BREATHING PATTERN - Cardiovascular Exam Cardiovascular Exam: REGULAR RHYTHM, +S1, +S2 - GI/Abdominal Exam GI & Abdominal Exam: Normal Bowel Sounds, Tenderness (minimal on right side, improved from initial presentation) - Extremities Exam Extremities exam: full ROM, pedal pulses present - Neurological Exam Neurological exam: Alert, CN II-XII Intact, Normal Gait, Oriented x3 - Psychiatric Exam Psychiatric exam: Normal Affect, Normal Mood - Skin Skin Exam: Dry, Normal Color, Warm Discharge Plan - Follow Up Plan Condition: FAIR Disposition: HOME/ ROUTINE Instructions: Pancreatitis (DC), Acute Abdominal Pain (DC), Acute Abdominal Pain (GEN), Abdominal Pain (ED) Additional Instructions: 1. Follow up with your primary doctor within 1 week of discharge. 2. Follow up with your shear helper, Dr. Jiménez within 1 week of discharge. 3. Continue to take your medications as prescribed to you including your pancreatic enzymes. 4. Advance your diet to low fat, small frequent meals as tolerated. 5. Return to the emergency room should you have worsening of your symptoms. Referrals: Tnio ESPINOZA,MD Franck [Medical Doctor] - Caryl Hightower MD [Primary Care Provider] - <Sushila Jarvis - Last Filed: 04/27/17 17:22> Provider - Provider Date of Admission: 04/25/17 18:11 Attending physician: Sushila Jarvis MD Primary care physician: Caryl Hightower MD Time Spent in preparation of Discharge (in minutes): 35 Hospital Course - Lab Results Lab Results: Most Recent Lab Values WBC 3.3 10^3/ul (4.5-11.0) L D 04/27/17 06:45 RBC 4.57 10^6/uL (3.5-6.1) 04/27/17 06:45 Hgb 11.5 g/dL (14.0-18.0) L 04/27/17 06:45 Hct 34.4 % (42.0-52.0) L 04/27/17 06:45 MCV 75.3 fl (80.0-105.0) L 04/27/17 06:45 MCH 25.2 pg (25.0-35.0) 04/27/17 06:45 MCHC 33.4 g/dl (31.0-37.0) 04/27/17 06:45 RDW 14.4 % (11.5-14.5) 04/27/17 06:45 Plt Count 122 10^3/uL (120.0-450.0) 04/27/17 06:45 MPV 10.7 fl (7.0-11.0) 04/27/17 06:45 Gran % 42.7 % (50.0-68.0) L 04/27/17 06:45 Lymph % (Auto) 46.6 % (22.0-35.0) H 04/27/17 06:45 [place] % (Auto) 6.4 % (1.0-6.0) H 04/27/17 06:45 Eos % (Auto) 3.4 % (1.5-5.0) 04/27/17 06:45 Baso % (Auto) 0.9 % (0.0-3.0) 04/27/17 06:45 Gran # 1.40 (1.4-6.5) 04/27/17 06:45 Lymph # 1.5 (1.2-3.4) 04/27/17 06:45 [place] # 0.2 (0.1-0.6) 04/27/17 06:45 Eos # 0.1 (0.0-0.7) 04/27/17 06:45 Baso # 0.03 K/mm3 (0.0-2.0) 04/27/17 06:45 PT 11.5 Seconds (9.9-11.8) 04/25/17 22:42 INR 1.06 (0.93-1.08) 04/25/17 22:42 Sodium 138 mmol/L (132-148) 04/27/17 06:45 Potassium 3.8 mmol/L (3.6-5.0) 04/27/17 06:45 Chloride 102 mmol/L (95-110) 04/27/17 06:45 Carbon Dioxide 29 mmol/L (21-33) 04/27/17 06:45 Anion Gap 11 (10-20) 04/27/17 06:45 BUN 7 mg/dL (7-21) 04/27/17 06:45 Creatinine 0.6 mg/dL (0.5-1.4) 04/27/17 06:45 Est GFR ( Amer) > 60 04/27/17 06:45 Est GFR (Non-Af Amer) > 60 04/27/17 06:45 POC Glucose (mg/dL) 237 mg/dL (65-110) H 04/27/17 16:10 Random Glucose 147 mg/dL (70-110) H 04/27/17 06:45 Calcium 8.7 mg/dL (8.4-10.5) 04/27/17 06:45 Phosphorus 3.5 mg/dL (2.5-4.5) 04/25/17 14:30 Magnesium 1.8 mg/dL (1.7-2.2) 04/25/17 14:30 Iron 45 ug/dL (45-180) 04/26/17 05:15 Total Bilirubin 0.7 mg/dL (0.2-1.3) 04/27/17 06:45 AST 29 U/L (15-59) 04/27/17 06:45 ALT 37 U/L (7-56) 04/27/17 06:45 Alkaline Phosphatase 60 U/L (38-133) 04/27/17 06:45 Total Protein 6.5 g/dL (5.8-8.3) 04/27/17 06:45 Albumin 3.5 g/dL (3.0-4.8) 04/27/17 06:45 Globulin 3.0 gm/dL 04/27/17 06:45 Albumin/Globulin Ratio 1.2 (1.1-1.8) 04/27/17 06:45 Triglycerides 538 mg/dL (35-160) H 04/26/17 05:15 Cholesterol 127 mg/dL (130-200) L 04/26/17 05:15 LDL Cholesterol Direct 35 mg/dL (0-129) 04/26/17 05:15 HDL Cholesterol 17 mg/dL (29-60) L 04/26/17 05:15 Lipase 83 U/L (23-300) 04/25/17 14:30 Vitamin B12 227 pg/mL (239-931) L 04/26/17 05:15 25-OH Vitamin D Total < 12.8 NG/ML (30.0-100.0) L 04/26/17 05:15 Attending/Attestation - Attestation I have personally seen and examined this patient.: Yes I have fully participated in the care of the patient.: Yes I have reviewed all pertinent clinical information, including history, physical exam and plan: Yes Notes (Text): I have seen and examined the patient at bedside. Agree with the above note with the following additions/ exceptions: Briefly this is 42 year old male with history of chronic pancreatitis, hypertriglyceridemia, IDDM, multiple pancreatic pseudocyst resection, cholecystectomy, appendectomy and known & untreated Hep C, Arthritis, and Chronic Back pain who presents with abdominal pain secondary to his chronic pancreatitis. Patient is able to tolerate CLD and is requesting the diet to be advanced to full liquids. Patient is cleared by GI for discharge. Advised patient to follow up with PMD and GI as an outpatient. As per patient, his doctors are not giving him appointment and he has to wait for at least 2 months for appointment. Patient has trouble getting his specific Pancrease prescription due to insurance reasons. Advised patient that he should consult his pvt GI to give him zenpep instead of creon as it was working for him. Upon discharge the patient will follow-up with PMD Dr. Hightower.
[2017-04-27 16:36] VITALS: BP 124/76; PULSE 47; RESP 16; TEMP 98.5; O2SAT 99
== END 2017-04-27 18:24 | disposition home or self-care (01) ==
LOC: ED 13:07 → ERH 18:11 → 5RNO 20:15
PROVIDERS: ADMIT Internal Medicine; ATTEND Hospitalist
DX: K86.1 Other chronic pancreatitis (principal); B19.20 Unspecified viral hepatitis C without hepatic coma; E78.5 Hyperlipidemia, unspecified; K29.50 Unspecified chronic gastritis without bleeding; E78.1 Pure hyperglyceridemia; K29.80 Duodenitis without bleeding; M19.90 Unspecified osteoarthritis, unspecified site; G89.29 Other chronic pain; R19.7 Diarrhea, unspecified; E11.8 Type 2 diabetes mellitus with unspecified complications; Z79.4 Long term (current) use of insulin; Z91.19 Patient's noncompliance with other medical treatment and regimen; Z87.891 Personal history of nicotine dependence
CPT/HCPCS: 36415; 80053; 80061; 82306; 82607; 82948; 83540; 83690; 83735; 84100; 85025; 85610; 96374; 96375; 96376; 99285; C9113; G0378; J2270; J2405; J7040; J7120

== ENCOUNTER 2017-05-01 17:06 | Inpatient (IN) | payer OTHER ==
[2017-05-01 17:07] VITALS: BMI 23.6
[2017-05-01] MEDS ORDERED: Sodium Chloride 0.9% 1,000 ML IV STA (18:46)
--- NOTE | 2017-05-01 18:51 | ED PDOC ---
Arrival/HPI - General Chief Complaint: Abdominal Pain Time Seen by Provider: 05/01/17 18:45 Historian: Patient - History of Present Illness Narrative History of Present Illness (Text): 05/01/17 18:30 Cortez Oh is a 42 year old male, whose past medical history includes pancreatitis, who presents to the emergency department complaining of nausea, vomiting, and abdominal pain for 2 days. Patient states that his symptoms are similar to past pancreatitis symptoms. PMD: Dr. Hightower Time/Duration: < week Symptom Onset: Gradual Symptom Course: Unchanged Severity Level: Mild Activities at Onset: Light Context: Home Past Medical History - Provider Review Nursing Documentation Reviewed: Yes - Infectious Disease Hx of Infectious Diseases: None - Tetanus Immunization Tetanus Immunization: Unknown - Cardiac Hx Cardiac Disorders: Yes Hx Cardiac Arrhythmia: Yes (bradycardia) Hx Hypertension: Yes Hx Peripheral Vascular Disease: Yes - Pulmonary Hx Respiratory Disorders: Yes (chronic dry cough x 8 months since sx) - Neurological Hx Neurological Disorder: Yes Hx Dizziness: Yes (falls from dizziness since 2013) - HEENT Hx HEENT Disorder: Yes (blurry vision) Other/Comment: [place] due to earwax - Renal Hx Kidney Stones: Yes - Endocrine/Metabolic Hx Endocrine Disorders: Yes Hx Diabetes Mellitus Type 1: Yes - Hematological/Oncological Hx Blood Disorders: Yes Hx Hepatitis C: Yes - Integumentary Hx Dermatological Disorder: Yes Other/Comment: chronic itchy skin since "surgery 8 months ago" - Musculoskeletal/Rheumatological Hx Falls: Yes ("dizzy and falling since 2013") - Gastrointestinal Hx Gastrointestinal Disorders: Yes (chronic constipation) Hx Gall Bladder Disease: Yes (gallstones) Hx Gastroesophageal Reflux: Yes Hx Pancreatitis: Yes - Genitourinary/Gynecological Hx Genitourinary Disorders: Yes (burning on urination "sometimes') Hx Urinary Tract Infection: Yes - Psychiatric Hx Depression: Yes Hx Substance Use: No - Surgical History Hx Appendectomy: Yes Hx Cholecystectomy: Yes Other/Comment: 2008 in [place] ap ruptured damagec pancreas, had sx on pancreas and gb sx at [facility] 8 months ago - Anesthesia Hx Anesthesia: Yes - Suicidal Assessment Feels Threatened In Home Enviroment: No Family/Social History - Physician Review Nursing Documentation Reviewed: Yes Family/Social History: No Known Family HX Smoking Status: Former Smoker Hx Alcohol Use: No Hx Substance Use: No Hx Substance Use Treatment: No Allergies/Home Meds Allergies/Adverse Reactions: Allergies dy Allergy (Mild, Uncoded 04/25/17 13:16) ITCHING hair color dye Allergy (Uncoded 04/25/17 13:16) RASH Home Medications: Home Meds Medication Instructions Recorded Confirmed Colesevelam HCl [Welchol] 625 mg PO BID 01/25/17 05/01/17 Insulin Aspart, Recombinant 0 unit SC PRN 05/01/17 05/01/17 [Novolog] Insulin Human (NPH)/Regular 25 units SC BID 05/01/17 05/01/17 [Novolin 70/30 (70/30 units/ml) 10 ml] Physical Exam - Physical Exam Narrative Physical Exam (Text): - Review of Systems Constitutional: Normal. absent: Fatigue, Weight Change, Fevers Eyes: Normal ENT: Normal Respiratory: Normal absent: SOB, Cough, Sputum Cardiovascular: Normal absent: Chest pain, Palpitations, Syncope Gastrointestinal: Nausea. Vomiting. Abdominal pain absent: Diarrhea Genitourinary: Normal. absent: Dysuria, Frequency, Hematuria Musculoskeletal: Normal. absent: Arthralgias, Back Pain, Neck Pain Skin: Normal Neurological: Normal absent: Focal Weakness Endocrine: Normal Hemo/Lymphatic: Normal Psychiatric: Normal - Physical exam Patient appears age appropriate, speaking full sentences without difficulty - Systems Exam Head: Present: Atraumatic, Normocephalic Pupils: Present: PERRL Extraocular Muscles: Present: EOMI Conjunctiva: Present: Normal Mouth: Present: Moist Mucous Membranes Neck: Present: Normal Range of Motion. No: MIDLINE TENDERNESS, Paraspinal Tenderness Respiratory/Chest: Present: Clear to Auscultation, Good Air Exchange. No: Respiratory Distress, Accessory Muscle Use, Tachypnic Cardiovascular: Present: Regular Rate and Rhythm, Normal S1, S2, Peripheral Pulses Present. No: Murmurs Abdomen: Present: Normal Bowel Sounds, No: Tenderness, Peritoneal Signs, Rebound, Guarding, Distention Back: Present: Normal Inspection. No: Midline Tenderness, Paraspinal Tenderness Upper Extremity: Present: Normal Inspection. No: Cyanosis, Edema Lower Extremity: Present: Normal Inspection. No: Edema Neurological: Present: GCS=15, Speech Normal, cranial nerves II through XII fully intact with no cerebellar abnormality, neuro-sensory fully intact. No focal neurological deficits. Skin: Present: Warm, Dry, Normal Color. No: Rashes Lymphatic: Present: OX3, NI, NC Psychiatric: Present: Alert, Oriented x 3, Normal Insight, Normal Concentration Vital Signs Reviewed: Yes Vital Signs Temp Pulse Resp BP Pulse Ox 05/01/17 17:58 97.5 F L 67 20 132/51 L 100 Temperature: Afebrile Blood Pressure: Hypotensive Pulse: Regular Respiratory Rate: Normal Appearance: Positive for: Well-Appearing, Non-Toxic, Comfortable Pain Distress: None Mental Status: Positive for: Alert and Oriented X 3 Medical Decision Making ED Course and Treatment: 05/01/17 18:45 Impression: 42 year old male complaining of nausea, vomiting, and abdominal pain for 2 days. Differential Diagnosis included but are not limited to: Pancreatitis vs. Non- specific abdominal pain Plan: -- Urinalysis -- Labs -- Tylenol, Toradol, and IV fluids -- Reassess and disposition Prior Visits: Notes and results from previous visits were reviewed. Patient last seen in the ED on 04/25/27 for worsening abdominal pain. Patient was admitted to hospitalist care for further evaluation. Progress Notes: 05/01/17 22:00 Patient still continues to complain of abdominal discomfort. Patient states that he is unable to tolerate any solids or liquids. dw Dr. Woods and resident, accepted admission pt aware of and agrees with plan - Lab Interpretations Lab Results: 05/01/17 19:29 05/01/17 19:29 Lab Results 05/01/17 19:29: WBC 7.4 D, RBC 5.43, Hgb 14.3 D, Hct 40.2 L, MCV 74.0 L, MCH 26.3, MCHC 35.6, RDW 14.3, Plt Count 199, MPV 11.1 H, Gran % 58.1, Lymph % (Auto ) 34.2, [place] % (Auto) 6.3 H, Eos % (Auto) 0.7 L, Baso % (Auto) 0.7, Gran # 4.28 , Lymph # 2.5, [place] # 0.5, Eos # 0.1, Baso # 0.05 05/01/17 19:29: Sodium 135, Potassium 4.0, Chloride 95 L, Carbon Dioxide 28, Anion Gap 16, BUN 22 H, Creatinine 0.7, Est GFR ( Amer) > 60, Est GFR ( Non-Af Amer) > 60, Random Glucose 244 H, Calcium 9.5, Total Bilirubin 1.4 H, AST 22, ALT 30, Alkaline Phosphatase 80, Total Protein 8.0, Albumin 4.7, Globulin 3.2, Albumin/Globulin Ratio 1.5, Lipase 200 05/01/17 19:29: PT 12.2 H, INR 1.13 H, APTT 28.5 I have reviewed the lab results: Yes - RAD Interpretation Radiology Orders: 05/01/17 18:46 CHEST PORTABLE [RAD] Stat - Medication Orders Current Medication Orders: Discontinued Medications Acetaminophen (Tylenol 325mg Tab) 975 mg PO STAT STA Stop: 05/01/17 18:47 Last Admin: 05/01/17 19:55 Dose: 975 mg Sodium Chloride (Sodium Chloride 0.9%) 1,000 mls @ 1,000 mls/hr IV .Q1H STA Stop: 05/01/17 19:45 Last Admin: 05/01/17 19:54 Dose: 1,000 mls/hr Ketorolac Tromethamine (Toradol) 30 mg IVP STAT STA Stop: 05/01/17 18:47 Last Admin: 05/01/17 19:48 Dose: 30 mg - Scribe Statement The provider has reviewed the documentation as recorded by the Jeny Ulloa Provider Scribe Attestation: All medical record entries made by the Coltibmarii were at my direction and personally dictated by me. I have reviewed the chart and agree that the record accurately reflects my personal performance of the history, physical exam, medical decision making, and the department course for this patient. I have also personally directed, reviewed, and agree with the discharge instructions and disposition. Disposition/Present on Arrival - Present on Arrival Any Indicators Present on Arrival: No History of DVT/PE: No History of Uncontrolled Diabetes: Yes Urinary Catheter: No History of Decub. Ulcer: No History Surgical Site Infection Following: None - Disposition Have Diagnosis and Disposition been Completed?: Yes Diagnosis: Intractable abdominal pain Disposition: HOSPITALIZED Disposition Time: 22:04 Patient Plan: Admission Condition: FAIR Referrals: Caryl Hightowre MD [Primary Care Provider] - Follow up with primary Forms: [employer] ([place]er)
[2017-05-01 19:44] LABS: BASO # 0.05 K/mm3 (0.0-2.0); BASO % 0.7 % (0.0-3.0); EOS # 0.1 (0.0-0.7); EOS % 0.7 % (1.5-5.0); GRAN # 4.28 (1.4-6.5); GRAN % 58.1 % (50.0-68.0); HEMOGLOBIN 14.3 g/dL (14.0-18.0); LYMPH # 2.5 (1.2-3.4); LYMPH % 34.2 % (22.0-35.0); MEAN CORPUSCULAR HEMOGLOBIN 26.3 pg (25.0-35.0); MEAN CORPUSCULAR HGB CONC 35.6 g/dl (31.0-37.0); MEAN PLATELET VOLUME 11.1 fl (7.0-11.0); MONO # 0.5 (0.1-0.6); MONO % 6.3 % (1.0-6.0); PLATELET COUNT 199 10^3/uL (120.0-450.0); RBC 5.43 10^6/uL (3.5-6.1); RED CELL DISTRIBUTION WIDTH 14.3 % (11.5-14.5); WHITE BLOOD COUNT 7.4 10^3/ul (4.5-11.0)
[2017-05-01 19:48] LABS: ALB/GLOB RATIO 1.5 (1.1-1.8); ALBUMIN 4.7 g/dL (3.0-4.8); ALT/SGPT 30 U/L (7-56); AST/SGOT 22 U/L (15-59); BLOOD UREA NITROGEN 22 mg/dL (7-21); CALCIUM 9.5 mg/dL (8.4-10.5); GFR AFRICAN-AMERICAN > 60; GFR NON-AFRICAN AMERICAN > 60; LIPASE 200 U/L (23-300)
[2017-05-01 19:51] LABS: INR 1.13 (0.93-1.08); PARTIAL THROMBOPLASTIN TIME 28.5 Seconds (23.7-30.8); PROTHROMBIN TIME 12.2 Seconds (9.9-11.8)
[2017-05-01 22:36] LABS: URINE BILIRUBIN SMALL (NEGATIVE); URINE BLOOD NEGATIVE (NEGATIVE); URINE GLUCOSE (UA) >=1000 mg/dL (NEGATIVE); URINE LEUKOCYTE ESTERASE NEGATIVE Leu/uL (NEGATIVE); URINE NITRATE NEGATIVE (NEGATIVE); URINE PROTEIN TRACE mg/dL (<30 mg/dL)
[2017-05-01 22:39] LABS: URINE APPEARANCE CLEAR (CLEAR); URINE COLOR YELLOW (YELLOW)
[2017-05-01 23:20] LABS: URINE EPITHELIAL CELLS 0 - 2 /hpf (0-5); URINE RBC 0 - 2 /hpf (0-2); URINE WBC 0 - 2 /hpf (0-6)
--- NOTE | 2017-05-01 23:45 | CP.PCM.HP ---
<Leonardo Hu - Last Filed: 05/02/17 00:37> History of Present Illness - History of Present Illness History of Present Illness: Mr. Oh is a 42 year old male with a past medical history of HCV, Arthritis , Pancreatitis, pancreatic cysts, DM, HLD, chronic back pain who presented to the ED with complaints of 3 days of vomiting and decreased PO intake. He reports 50 episodes of NBNB vomiting over the past 24-36 hours and non-bloody diarrhea. It is important to note that the patient has been experiencing abdominal pain with nausea over the past 9 months s/p his pancreatic pseudocyst resection however it has been exacerbated over the past 3 days with no provoking event. Patient admits to complying with his pancreatic enzyme supplementations but reports that due to insurance reasons, his previous enzymes were changed and that his new ones give him diarrhea. Patient denies fever, chills, chest pain, SOB, diarrhea, constipation, and urinary symptoms. PMH: Hepatitis C, Chronic Pancreatitis, DM, HLD, Arthritis, chronic back pain PSH: Appendectomy, Cholecystectomy, Pancreatic Pseudocyst resection Family: Mother-Bone Cancer, Father- from [place] at 53 Social: Current 3 cigars daily, denies alcohol or illicit drug use; lives alone Allergy: Hair Dye Home meds: As per MAR Present on Admission - Present on Admission Any Indicators Present on Admission: Yes History of Uncontrolled Diabetes: Yes Review of Systems - Constitutional Constitutional: Weight Loss - EENT Nose/Mouth/Throat: Dry Mouth. absent: Epistaxis, Nose Pain - Cardiovascular Cardiovascular: absent: Chest Pain, Dyspnea, Pedal Edema - Respiratory Respiratory: absent: Dyspnea, Hemoptysis, Pain on Inspiration - Gastrointestinal Gastrointestinal: Abdominal Pain, Diarrhea, Vomiting - Genitourinary Genitourinary: absent: Nocturia, Urinary Incontinence, Urinary Urgency - Reproductive: Male Reproductive:Male: As Per HPI - Musculoskeletal Musculoskeletal: absent: Joint Swelling, Numbness, Stiffness - Integumentary Integumentary: Alopecia, Dry Skin - Neurological Neurological: absent: Abnormal Movements, Confusion - Hematologic/Lymphatic Hematologic: absent: Easy Bleeding, Easy Bruising Past Patient History - Infectious Disease Hx of Infectious Diseases: None - Tetanus Immunizations Tetanus Immunization: Unknown - Past Medical History & Family History Past Medical History?: Yes - Past Social History Smoking Status: Former Smoker - CARDIAC Hx Cardiac Disorders: Yes Hx Cardia Arrhythmia: Yes (bradycardia) Hx Hypertension: Yes Hx Peripheral Vascular Disease: Yes - PULMONARY Hx Respiratory Disorders: Yes (chronic dry cough x 8 months since sx) - NEUROLOGICAL Hx Neurological Disorder: Yes Hx Dizziness: Yes (falls from dizziness since 2013) - HEENT Hx HEENT Problems: Yes (blurry vision) Other/Comment: crow due to earwax - RENAL Hx Kidney Stones: Yes - ENDOCRINE/METABOLIC Hx Endocrine Disorders: Yes Hx Diabetes Mellitus Type 1: Yes - HEMATOLOGICAL/ONCOLOGICAL Hx Blood Disorders: Yes Hx Hepatitis C: Yes - INTEGUMENTARY Hx Dermatological Problems: Yes Other/Comment: chronic itchy skin since "surgery 8 months ago" - MUSCULOSKELETAL/RHEUMATOLOGICAL Hx Falls: Yes ("dizzy and falling since 2013") - GASTROINTESTINAL Hx Gastrointestinal Disorders: Yes (chronic constipation) Hx Gall Bladder Disease: Yes (gallstones) Hx Gastroesophageal Reflux: Yes Hx Pancreatitis: Yes - GENITOURINARY/GYNECOLOGICAL Hx Genitourinary Disorders: Yes (burning on urination "sometimes') Hx Urinary Tract Infection: Yes - PSYCHIATRIC Hx Depression: Yes Hx Substance Use: No - SURGICAL HISTORY Hx Appendectomy: Yes Hx Cholecystectomy: Yes Other/Comment: 2009 in [place] ap ruptured damagec pancreas, had sx on pancreas and gb sx at [facility] 8 months ago - ANESTHESIA Hx Anesthesia: Yes Meds Allergies/Adverse Reactions: Allergies Allergy/AdvReac Type Severity Reaction Status Date / Time dy Allergy Mild ITCHING Uncoded 04/25/17 13:16 hair color dye Allergy RASH Uncoded 04/25/17 13:16 Physical Exam - Constitutional Appears: Older Than Stated Age, Cachectic - Head Exam Head Exam: ATRAUMATIC, NORMOCEPHALIC - Eye Exam Eye Exam: EOMI, Normal appearance, PERRL - ENT Exam ENT Exam: Mucous Membranes Dry, Normal Oropharynx - Neck Exam Neck exam: Positive for: Normal Inspection. Negative for: Tenderness - Respiratory Exam Respiratory Exam: Clear to Auscultation Bilateral, NORMAL BREATHING PATTERN - Cardiovascular Exam Cardiovascular Exam: RRR, +S1, +S2 - GI/Abdominal Exam GI & Abdominal Exam: Guarding, Hyperactive Bowel Sounds. absent: Rebound - Rectal Exam Rectal Exam: Deferred - Extremities Exam Extremities exam: Positive for: normal inspection. Negative for: joint swelling - Back Exam Back exam: NORMAL INSPECTION - Neurological Exam Neurological exam: Alert, CN II-XII Intact, Oriented x3 - Psychiatric Exam Psychiatric exam: Normal Affect, Normal Mood - Skin Skin Exam: Dry, Normal Color Additional comments: poor turgor, no cyanosis Results - Vital Signs Recent Vital Signs: Last Vital Signs Temp 97.5 F L 05/01/17 17:58 Pulse 50 L 05/01/17 22:47 Resp 16 05/01/17 22:47 BP 114/41 L 05/01/17 22:47 Pulse Ox 100 05/01/17 22:47 - Labs Result Diagrams: 05/01/17 19:29 05/01/17 19:29 Labs: Laboratory Results - last 24 hr 05/01/17 22:15 Urine Color Yellow Urine Appearance Clear Urine pH 6.0 Ur Specific Joseph 1.015 Urine Protein Trace H Urine Glucose (UA) >=1000 Urine Ketones Trace H Urine Blood Negative Urine Nitrate Negative Urine Bilirubin Small H Urine Urobilinogen 2.0 H Ur Leukocyte Esterase Negative Urine RBC 0 - 2 Urine WBC 0 - 2 Ur Epithelial Cells 0 - 2 Assessment & Plan - Assessment and Plan (Free Text) Assessment: 42 year old with a past medical history of pancreatic insufficency, HCV, GERD, DM who presents with 3-4 days of nausea, NBNB vomiting, near nothing PO intake and diarrhea who presents to [facility] severely dehydrated and in need of volume repletion and further management for his underlying comorbidities. 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 - Levemir 20 units HS - Lispro medium dose sliding scale - Finger stick blood glucose ACHS - 5 mg trial of Reglan with each meal 3) Exocrine pancreatic insufficiency - Creon 72,000 units before each meal, and 36,000 before a snack - GI consult for correct dosing of patient's pancreatic enzymes and considerable side effect profile - Low fat diet 4) Vitamin B12 deficiency - 1,000 mcg of Vitamin B12 IM each day 5) Vitamin D defiency Replete 2,000 U/day 6) Abdominal pain possibly due to nerve irritation from recurrent abdominal/ pancreatic surgeries 2 mg morphine q4h PRN - Date & Time Date: 05/01/17 Time: 23:30 <Young Woods P - Last Filed: 05/02/17 04:33> Results - Vital Signs Recent Vital Signs: Last Vital Signs Temp 97.8 F 05/01/17 23:39 Pulse 49 L 05/01/17 23:39 Resp 19 05/01/17 23:39 BP 128/71 05/01/17 23:39 Pulse Ox 100 05/01/17 22:47 - Labs Result Diagrams: 05/01/17 19:29 05/01/17 19:29 Labs: Laboratory Results - last 24 hr 05/01/17 22:15 Urine Color Yellow Urine Appearance Clear Urine pH 6.0 Ur Specific Joseph 1.015 Urine Protein Trace H Urine Glucose (UA) >=1000 Urine Ketones Trace H Urine Blood Negative Urine Nitrate Negative Urine Bilirubin Small H Urine Urobilinogen 2.0 H Ur Leukocyte Esterase Negative Urine RBC 0 - 2 Urine WBC 0 - 2 Ur Epithelial Cells 0 - 2 Attending/Attestation - Attestation I have personally seen and examined this patient.: Yes I have fully participated in the care of the patient.: Yes I have reviewed all pertinent clinical information: Yes Notes (Text): 05/02/17 04:26 Assessment * Recurrent abd pain with intractable vomiting, clinical dehydration form chronic pancreatitis, pseudocyst, pancreatic insufficiency, * hemoconcentration with increased hemoglobin, albumin * Malabsorption with low b12, vitd * h/o hepc * Gerd * DM uncontrolled Plan * NPO * IVF * when tried diet will advance to solid food with opitmal dose of pancreatic enxyme * Pain control * trial of reglan with food, unless develops diarrhea * Continue lantus 20 units with sliding scale coverage * Vit b12, vit d supplement, f/u of malablsorption w/u * see orders for detail.
[2017-05-01] MEDS ORDERED: Morphine 2 mg/ml ISec IVP PRN (23:58)
[2017-05-02] MEDS: Sodium Chloride 0.9% 1,000 ML IV SCH ×3 (00:36→20:31)
[2017-05-02] MEDS: Morphine 2 mg/ml ISec IVP PRN ×5 (05:03→22:32)
[2017-05-02] MEDS ORDERED: POLYETHYLENE GLYCOL 3350 17 GM/Dose PACKET PO PRN (05:22)
[2017-05-02] MEDS ORDERED: AMYLASE PO SCH (07:30)
[2017-05-02] MEDS ORDERED: PROTEASE PO SCH (07:30)
[2017-05-02] MEDS ORDERED: LIPASE PO SCH (07:30)
[2017-05-02] MEDS: Insulin Lispro (humaLOG) MEDIUM Coverage SC SCH ×4 (08:39→22:29)
[2017-05-02 08:49] LABS: MEAN CELL VOLUME 74.6 fl (80.0-105.0); MEAN CORPUSCULAR HEMOGLOBIN 25.4 pg (25.0-35.0); MEAN CORPUSCULAR HGB CONC 34.1 g/dl (31.0-37.0); MEAN PLATELET VOLUME 10.6 fl (7.0-11.0); RBC 4.64 10^6/uL (3.5-6.1); RED CELL DISTRIBUTION WIDTH 14.4 % (11.5-14.5); WHITE BLOOD COUNT 5.8 10^3/ul (4.5-11.0)
[2017-05-02 09:02] LABS: HEMOGLOBIN 11.8 g/dL (14.0-18.0)
[2017-05-02 09:03] LABS: ALB/GLOB RATIO 1.2 (1.1-1.8); ALBUMIN 3.3 g/dL (3.0-4.8); ALT/SGPT 27 U/L (7-56); AST/SGOT 21 U/L (15-59); BLOOD UREA NITROGEN 19 mg/dL (7-21); CALCIUM 8.2 mg/dL (8.4-10.5); GFR AFRICAN-AMERICAN > 60; GFR NON-AFRICAN AMERICAN > 60
--- NOTE | 2017-05-02 09:12 | RAD ---
HISTORY: cough COMPARISON: 04/05/2017 FINDINGS: LUNGS: No active pulmonary disease. PLEURA: No significant pleural effusion identified, no pneumothorax apparent. CARDIOVASCULAR: Normal. OSSEOUS STRUCTURES: No significant abnormalities. VISUALIZED UPPER ABDOMEN: Normal. OTHER FINDINGS: None. IMPRESSION: No active disease.
[2017-05-02] MEDS ORDERED: Colesevelam Hcl [Welchol] 625 MG (HOME MED) PO SCH (10:00)
[2017-05-02] MEDS: AMYLASE PO SCH ×2 (12:30→17:20)
[2017-05-02] MEDS: PROTEASE PO SCH ×2 (12:30→17:20)
[2017-05-02] MEDS: LIPASE PO SCH ×2 (12:30→17:20)
--- NOTE | 2017-05-02 16:23 | CP.PCM.PN ---
<NathenHalima - Last Filed: 05/02/17 16:27> Subjective - Date & Time of Evaluation Date of Evaluation: 05/02/17 Time of Evaluation: 08:00 - Subjective Subjective: PT S&E at bedside Patient states he can't afford pancreatic enzymes zenpep, and he hardly sees Dr. Valentin his GI doctor. He sees Dr. Valentin every three months. His PMD has difficulty fighting insurance companies for coverage of zenpep. Patient wang been here for the same reason last week. Patient was seen and examined at bedside. No issues overnight. Patient was eating breakfast at time of visit. Objective - Vital Signs/Intake and Output Vital Signs (last 24 hours): Temp Pulse Resp BP Pulse Ox 98.6 F 60 19 93/55 L 98 05/02/17 06:00 05/02/17 06:00 05/02/17 06:00 05/02/17 06:00 05/02/17 06:00 Intake and Output: 05/02/17 05/02/17 06:59 18:59 Intake Total 1070 Balance 1070 - Medications Medications: Current Medications Cyanocobalamin (Vitamin B12 1000 Mcg/Ml Inj) 1,000 mcg IM DAILY [facility] Stop: 05/07/17 10:01 Last Admin: 05/02/17 10:50 Dose: 1,000 mcg Gemfibrozil (Lopid) 600 mg PO BID [facility] Last Admin: 05/02/17 09:05 Dose: 600 mg Sodium Chloride (Sodium Chloride 0.9%) 1,000 mls @ 150 mls/hr IV .Q6H40M [facility] Last Admin: 05/02/17 06:39 Dose: 150 mls/hr Insulin Detemir (Levemir) 20 unit SC HS [facility] Insulin Human Lispro (Humalog Med) 0 units SC ACHS [facility] PRN Reason: Protocol Last Admin: 05/02/17 12:30 Dose: 8 units Metoclopramide HCl (Reglan) 5 mg IVP ACHS [facility] Last Admin: 05/02/17 12:31 Dose: 5 mg Morphine Sulfate (Morphine) 2 mg IVP Q4H PRN PRN Reason: Pain, moderate (4-7) Last Admin: 05/02/17 14:03 Dose: 2 mg Lipase/Protease/Amylase [Kiel Leal 36 ,000 Units Capsule] Home Med 1 each PO AC DO Last Admin: 05/02/17 12:30 Dose: 1 each Ondansetron HCl (Zofran Inj) 4 mg IVP Q6H PRN PRN Reason: Nausea/Vomiting Last Admin: 05/02/17 06:37 Dose: 4 mg Pantoprazole Sodium (Protonix Inj) 40 mg IVP DAILY [facility] Last Admin: 05/02/17 09:02 Dose: 40 mg Polyethylene Glycol (Miralax) 17 gm PO DAILY PRN PRN Reason: Constipation Zolpidem Tartrate (Ambien) 5 mg PO HS PRN; Protocol PRN Reason: Insomnia Last Admin: 05/02/17 02:32 Dose: 5 mg - Labs Labs: 05/02/17 08:30 05/02/17 08:30 PT 12.2 Seconds (9.9-11.8) H 05/01/17 19:29 INR 1.13 (0.93-1.08) H 05/01/17 19:29 APTT 28.5 Seconds (23.7-30.8) 05/01/17 19:29 - Constitutional Appears: Non-toxic, No Acute Distress - Head Exam Head Exam: NORMAL INSPECTION - Eye Exam Eye Exam: EOMI, Normal appearance Pupil Exam: NORMAL ACCOMODATION - ENT Exam ENT Exam: Mucous Membranes Moist - Neck Exam Neck Exam: Full ROM, Normal Inspection - Respiratory Exam Respiratory Exam: NORMAL BREATHING PATTERN. absent: Accessory Muscle Use, Respiratory Distress - Cardiovascular Exam Cardiovascular Exam: REGULAR RHYTHM - GI/Abdominal Exam GI & Abdominal Exam: Soft, Tenderness. absent: Distended, Guarding, Rigid, Rebound - Extremities Exam Extremities Exam: Full ROM. absent: Normal Inspection, Pedal Edema - Neurological Exam Neurological Exam: Alert, Awake, Normal Gait - Psychiatric Exam Psychiatric exam: Normal Affect, Normal Mood - Skin Skin Exam: Dry, Intact, Normal Color, Warm Assessment and Plan - Assessment and Plan (Free Text) Assessment: 42 vomiting x day 3 and decreased PO intake PMH HCV, Arthritis, Pancreatitis, pancreatic cysts, DM, HLD, chronic back pain Plan: Chronic Pancreatitis - Previous CT from 04/05/2017 showing hypodense fatty infiltration of the liver. Hepatomegaly, Splenomegaly, pancreatic cyst located in the region of the pancreatic body measuring 2.2 x 2.1 cm that is hypodense IVF: NS 150cc/hr Pain: Morphine 2 mg IVP Q4H PRN Creon: Lipase/Protease/Amylase 1 POQdaily DM2 - Continue home medicine f/u Social work about zenpep coverage. <Ayaz Gallo - Last Filed: 05/03/17 08:00> Objective - Vital Signs/Intake and Output Vital Signs (last 24 hours): Temp Pulse Resp BP Pulse Ox 97.9 F 46 L 18 105/60 97 05/02/17 16:30 05/02/17 16:30 05/02/17 16:30 05/02/17 16:30 05/02/17 16:30 Intake and Output: 05/03/17 05/03/17 06:59 18:59 Intake Total 4310 Balance 4310 - Medications Medications: Current Medications Cyanocobalamin (Vitamin B12 1000 Mcg/Ml Inj) 1,000 mcg IM DAILY [facility] Stop: 05/07/17 10:01 Last Admin: 05/02/17 10:50 Dose: 1,000 mcg Gemfibrozil (Lopid) 600 mg PO BID [facility] Last Admin: 05/02/17 17:19 Dose: 600 mg Sodium Chloride (Sodium Chloride 0.9%) 1,000 mls @ 150 mls/hr IV .Q6H40M [facility] Last Admin: 05/03/17 02:59 Dose: 150 mls/hr Insulin Detemir (Levemir) 25 unit [place] HS [facility] Last Admin: 05/02/17 22:27 Dose: 25 unit Insulin Human Lispro (Humalog Med) 0 units SC [facility] PRN Reason: Protocol Last Admin: 05/02/17 22:29 Dose: 2 units Metoclopramide HCl (Reglan) 5 mg IVP ACHS [facility] Last Admin: 05/02/17 22:33 Dose: 5 mg Morphine Sulfate (Morphine) 2 mg IVP Q4H PRN PRN Reason: Pain, moderate (4-7) Last Admin: 05/03/17 06:12 Dose: 2 mg Lipase/Protease/Amylase [Creon Dr 36 ,000 Units Capsule] Home Med 1 each PO AC [facility] Last Admin: 05/02/17 17:20 Dose: 1 each Ondansetron HCl (Zofran Inj) 4 mg IVP Q6H PRN PRN Reason: Nausea/Vomiting Last Admin: 05/02/17 06:37 Dose: 4 mg Pantoprazole Sodium (Protonix Inj) 40 mg IVP DAILY DO Last Admin: 05/02/17 09:02 Dose: 40 mg Polyethylene Glycol (Miralax) 17 gm PO DAILY PRN PRN Reason: Constipation Zolpidem Tartrate (Ambien) 5 mg PO HS PRN; Protocol PRN Reason: Insomnia Last Admin: 05/03/17 00:26 Dose: 5 mg - Labs Labs: 05/03/17 07:00 05/02/17 08:30 PT 12.2 Seconds (9.9-11.8) H 05/01/17 19:29 INR 1.13 (0.93-1.08) H 05/01/17 19:29 APTT 28.5 Seconds (23.7-30.8) 05/01/17 19:29 Attending/Attestation - Attestation I have personally seen and examined this patient.: Yes I have fully participated in the care of the patient.: Yes I have reviewed all pertinent clinical information, including history, physical exam and plan: Yes Notes (Text): 05/03/17 07:59 Attending note; Patient seen and examined with resident. Patient is a 42-year-old male with a history of chronic pancreatitis, malabsorption, history of pancreatic surgery is admitted with abdominal pain nausea and diarrhea after eating. Continue diet as tolerated. Patient is not able to get ZENpep as outpatient. Will discuss with the pharmacy for approval. Patient is strongly advised to follow-up with PMD Dr. goodwin. Follow-up with GI Dr. Valentin. 05/03/17 08:00
[2017-05-02 17:12] VITALS: RESP 18
[2017-05-02] MEDS ORDERED: Insulin Detemir 100 units/ml Vial (Levemir) SC SCH ×2 (22:00)
[2017-05-03] MEDS: Sodium Chloride 0.9% 1,000 ML IV SCH ×2 (02:59→09:19)
--- NOTE | 2017-05-03 03:41 | CON ---
DATE: 05/02/2017 REQUESTING PHYSICIAN: Ayaz Gallo MD REASON FOR CONSULT: I have been asked to see this 42-year-old male with chronic recurrent abdominal pain secondary to chronic pancreatitis with eight hospitalizations in the last five months averaging hospital admission every 2-3 weeks for chronic recurrent abdominal pain. The patient is known to have chronic pancreatitis and a stable 2.2 cm pseudocyst in the head of the pancreas. The patient was just discharged from the hospital several days ago with similar complaint. He currently denies any nausea and vomiting. He is on pancreatic enzyme replacement insulin as well as Lopid for severe hypertriglyceridemia. The patient states that his abdominal pain is essentially unchanged from when he was just recently in the hospital. Again, the patient has been having this abdominal pain intermittently for the last 2 years with over half a dozen hospitalizations over the last 5 months. PAST MEDICAL HISTORY: Notable for chronic pancreatitis, pancreatic pseudocyst, diabetes mellitus; requiring insulin, hypertriglyceridemia; requiring insulin, hepatitis C. PAST SURGICAL HISTORY: Notable for appendectomy, pancreatic pseudocyst drainage, cholecystectomy. FAMILY HISTORY: Noncontributory. SOCIAL HISTORY: He denies alcohol use. He does smoke few cigars daily. REVIEW OF SYSTEMS: 14 points review of systems is notable for abdominal pain. PHYSICAL EXAMINATION GENERAL: Well developed male lying in bed in no acute distress. VITAL SIGNS: Revealed temperature of 98.6, blood pressure 93/55, heart rate is 60. HEENT: Revealed sclerae white. Conjunctivae pink. NECK: Supple. HEART: Exam reveals a regular rate and rhythm. CHEST: Chest revealed lungs to be clear. ABDOMEN: Soft. There is mild diffuse tenderness. No rebound. No guarding. EXTREMITIES: Show no edema. LABORATORY DATA: Revealed white blood cell count 5.8, hemoglobin 11.8. Chemistries reveal blood sugar 231. Serum lipase is normal. AST, ALT, alk phos were normal. IMPRESSION: A 42-year-old male with chronic recurrent abdominal pain secondary to chronic pancreatitis, known stable pseudocyst of the head of the pancreas. Unfortunately, there is not much we can offer this gentleman in terms of pain control, would continue pancreatic enzyme replacement with each meal with PPI and to continue gemfibrozil and insulin for his hyperlipidemia and diabetes. Keo Sullivan MD [facility] # [id number]
[2017-05-03] MEDS: Morphine 2 mg/ml ISec IVP PRN ×2 (06:12→11:56)
[2017-05-03 07:40] LABS: HEMOGLOBIN 11.2 g/dL (14.0-18.0); MEAN CELL VOLUME 74.8 fl (80.0-105.0); MEAN CORPUSCULAR HEMOGLOBIN 24.9 pg (25.0-35.0); MEAN CORPUSCULAR HGB CONC 33.3 g/dl (31.0-37.0); RBC 4.49 10^6/uL (3.5-6.1); RED CELL DISTRIBUTION WIDTH 14.1 % (11.5-14.5); WHITE BLOOD COUNT 3.4 10^3/ul (4.5-11.0)
[2017-05-03 08:01] LABS: ALB/GLOB RATIO 1.2 (1.1-1.8); ALBUMIN 3.1 g/dL (3.0-4.8); ALT/SGPT 27 U/L (7-56); AST/SGOT 15 U/L (15-59); BLOOD UREA NITROGEN 7 mg/dL (7-21); CALCIUM 8.1 mg/dL (8.4-10.5); GFR AFRICAN-AMERICAN > 60; GFR NON-AFRICAN AMERICAN > 60
[2017-05-03 09:02] VITALS: BP 137/76; PULSE 50; TEMP 97.8; O2SAT 98
[2017-05-03] MEDS: Insulin Lispro (humaLOG) MEDIUM Coverage SC SCH ×2 (09:13→12:09)
[2017-05-03] MEDS: AMYLASE PO SCH ×2 (09:14→11:53)
[2017-05-03] MEDS: LIPASE PO SCH ×2 (09:14→11:53)
[2017-05-03] MEDS: PROTEASE PO SCH ×2 (09:14→11:53)
--- NOTE | 2017-05-03 11:29 | PN ---
DATE: 05/03/2017 SUBJECTIVE: The patient is lying in bed. He complains of worsening abdominal pain. He denies any nausea or vomiting. PHYSICAL EXAMINATION: VITAL SIGNS: Revealed temperature of 97.8, blood pressure 137/76, heart rate is 50. ABDOMEN: Soft. There is moderate right mid-abdominal tenderness with some voluntary guarding. There is no rebound. LABORATORY DATA: Revealed white blood cell count 3.4, hemoglobin 11.2. Chemistries reveal normal AST, ALT, alk phos. Blood sugar is 188. IMPRESSION: This 42-year-old male with chronic pancreatitis, stable 2.2 cm pseudocyst in the head of the pancreas with chronic recurrent abdominal pain. RECOMMENDATION: We will obtain a MRCP of the abdomen with and without contrast to further delineate the anatomy of the pancreas as well as the pancreatic duct. We will also make the patient n.p.o. except medications. Keo Sullivan MD
[2017-05-03] MEDS ORDERED: ZENPEP PO SCH (12:00)
[2017-05-03] MEDS ORDERED: ZENPEP 25000 UNIT PO SCH (12:23)
--- NOTE | 2017-05-03 15:20 | CP.PCM.DIS ---
<NathenHalima - Last Filed: 05/03/17 15:24> Provider - Provider Date of Admission: 05/01/17 22:04 Attending physician: Ayaz Gallo MD Primary care physician: Caryl Hightower MD Time Spent in preparation of Discharge (in minutes): 30 Hospital Course - Lab Results Lab Results: Most Recent Lab Values WBC 3.4 10^3/ul (4.5-11.0) L D 05/03/17 07:00 RBC 4.49 10^6/uL (3.5-6.1) 05/03/17 07:00 Hgb 11.2 g/dL (14.0-18.0) L 05/03/17 07:00 Hct 33.6 % (42.0-52.0) L 05/03/17 07:00 MCV 74.8 fl (80.0-105.0) L 05/03/17 07:00 MCH 24.9 pg (25.0-35.0) L 05/03/17 07:00 MCHC 33.3 g/dl (31.0-37.0) 05/03/17 07:00 RDW 14.1 % (11.5-14.5) 05/03/17 07:00 Plt Count 108 10^3/uL (120.0-450.0) L 05/03/17 07:00 MPV 11.0 fl (7.0-11.0) 05/03/17 07:00 Gran % 58.1 % (50.0-68.0) 05/01/17 19:29 Lymph % (Auto) 34.2 % (22.0-35.0) 05/01/17 19:29 [place] % (Auto) 6.3 % (1.0-6.0) H 05/01/17 19:29 Eos % (Auto) 0.7 % (1.5-5.0) L 05/01/17 19:29 Baso % (Auto) 0.7 % (0.0-3.0) 05/01/17 19:29 Gran # 4.28 (1.4-6.5) 05/01/17 19:29 Lymph # 2.5 (1.2-3.4) 05/01/17 19:29 [place] # 0.5 (0.1-0.6) 05/01/17 19:29 Eos # 0.1 (0.0-0.7) 05/01/17 19:29 Baso # 0.05 K/mm3 (0.0-2.0) 05/01/17 19:29 PT 12.2 Seconds (9.9-11.8) H 05/01/17 19:29 INR 1.13 (0.93-1.08) H 05/01/17 19:29 APTT 28.5 Seconds (23.7-30.8) 05/01/17 19:29 Sodium 138 mmol/L (132-148) 05/03/17 07:00 Potassium 3.9 mmol/L (3.6-5.0) 05/03/17 07:00 Chloride 106 mmol/L (95-110) 05/03/17 07:00 Carbon Dioxide 26 mmol/L (21-33) 05/03/17 07:00 Anion Gap 10 (10-20) 05/03/17 07:00 BUN 7 mg/dL (7-21) 05/03/17 07:00 Creatinine 0.5 mg/dL (0.5-1.4) 05/03/17 07:00 Est GFR ( Amer) > 60 05/03/17 07:00 Est GFR (Non-Af Amer) > 60 05/03/17 07:00 POC Glucose (mg/dL) 106 mg/dL (65-110) 05/03/17 12:01 Random Glucose 188 mg/dL (70-110) H 05/03/17 07:00 Calcium 8.1 mg/dL (8.4-10.5) L 05/03/17 07:00 Total Bilirubin 0.5 mg/dL (0.2-1.3) 05/03/17 07:00 AST 15 U/L (15-59) 05/03/17 07:00 ALT 27 U/L (7-56) 05/03/17 07:00 Alkaline Phosphatase 58 U/L (38-133) 05/03/17 07:00 Total Protein 5.7 g/dL (5.8-8.3) L 05/03/17 07:00 Albumin 3.1 g/dL (3.0-4.8) 05/03/17 07:00 Globulin 2.6 gm/dL 05/03/17 07:00 Albumin/Globulin Ratio 1.2 (1.1-1.8) 05/03/17 07:00 Lipase 200 U/L (23-300) 05/01/17 19:29 Urine Color Yellow (YELLOW) 05/01/17 22:15 Urine Appearance Clear (CLEAR) 05/01/17 22:15 Urine pH 6.0 (4.7-8.0) 05/01/17 22:15 Ur Specific [place] 1.015 (1.005-1.035) 05/01/17 22:15 Urine Protein Trace mg/dL (<30 mg/dL) H 05/01/17 22:15 Urine Glucose (UA) >=1000 mg/dL (NEGATIVE) 05/01/17 22:15 Urine Ketones Trace mg/dL (NEGATIVE) H 05/01/17 22:15 Urine Blood Negative (NEGATIVE) 05/01/17 22:15 Urine Nitrate Negative (NEGATIVE) 05/01/17 22:15 Urine Bilirubin Small (NEGATIVE) H 05/01/17 22:15 Urine Urobilinogen 2.0 E.U./dL (<1 E.U./dL) H 05/01/17 22:15 Ur Leukocyte Esterase Negative [place]/uL (NEGATIVE) 05/01/17 22:15 Urine RBC 0 - 2 /hpf (0-2) 05/01/17 22:15 Urine WBC 0 - 2 /hpf (0-6) 05/01/17 22:15 Ur Epithelial Cells 0 - 2 /hpf (0-5) 05/01/17 22:15 - Hospital Course Hospital Course: Discharge Summary for Dr. Gallo 42M with a past medical history of HCV, Arthritis, Pancreatitis, pancreatic cysts, DM, HLD, chronic back pain who presented to the ED with complaints of 3 days of vomiting and decreased PO intake. HPT admitted for dehydration. Fluids were given to patient. Patient was given food. Patient tolerated food. Patient admits to complying with his pancreatic enzyme supplementations but reports that due to insurance reasons, his previous enzymes were changed and that his new ones give him diarrhea. Patient denies fever, chills, chest pain, SOB, diarrhea, constipation, and urinary symptoms Patient states he can't afford pancreatic enzymes zenpep. Patient wang been here for the same reason last week. Patient was seen and examined at bedside every day since admission. No issues overnight. Patient continues to complain about pain. Today, Patient was S&E at bedside. Stating he has pain in his stomach. Social work got insurance coverage for zenpep, which patient had originally prior to insurance change. Patient stated he felt stomach pain and asked for miralax. Dr. Gallo explained that he should take his pancreatic enzymes with food to help with body digesting the food. Patient is set for discharge today. to continue with home medication with replacing creol with zenpep. - Date & Time of H&P Date of H&P: 05/03/17 Time of H&P: 15:24 Discharge Exam - Head Exam Head Exam: NORMAL INSPECTION - Eye Exam Eye Exam: EOMI, Normal appearance - ENT Exam ENT Exam: Mucous Membranes Moist - Neck Exam Neck exam: Full Rom - Respiratory Exam Respiratory Exam: Clear to PA & Lateral, NORMAL BREATHING PATTERN, UNREMARKABLE. absent: Accessory Muscle Use, Respiratory Distress - Cardiovascular Exam Cardiovascular Exam: REGULAR RHYTHM. absent: Bradycardia, Tachycardia - GI/Abdominal Exam GI & Abdominal Exam: Normal Bowel Sounds, Soft, Tenderness. absent: Bruit, Rebound, Rigid, Unremarkable - Extremities Exam Extremities exam: full ROM Additional comments: no pedal edema - Neurological Exam Neurological exam: Alert, Normal Gait, Oriented x3 Discharge Plan - Follow Up Plan Condition: FAIR Disposition: HOME/ ROUTINE Patient education suggested?: Yes Instructions: Acute Abdominal Pain (DC), Acute Abdominal Pain (GEN), Abdominal Pain (ED) Additional Instructions: 1. Follow up with Dr. Valentin for continued medications in 1 week 2. Follow up with PMD in 1 week for continued care. 3. take zenpep as directed. 4. c/w current home medical treatment (replaced creol with zenpep) 5. return to ED if vomiting, abdominal pain, distension, blood in stool or vomiting blood Referrals: Caryl Hightower MD [Primary Care Provider] - <Ayaz Gallo - Last Filed: 05/04/17 07:52> Provider - Provider Date of Admission: 05/01/17 22:04 Attending physician: Ayaz Gallo MD Primary care physician: Caryl Hightower MD Hospital Course - Lab Results Lab Results: Most Recent Lab Values WBC 3.4 10^3/ul (4.5-11.0) L D 05/03/17 07:00 RBC 4.49 10^6/uL (3.5-6.1) 05/03/17 07:00 Hgb 11.2 g/dL (14.0-18.0) L 05/03/17 07:00 Hct 33.6 % (42.0-52.0) L 05/03/17 07:00 MCV 74.8 fl (80.0-105.0) L 05/03/17 07:00 MCH 24.9 pg (25.0-35.0) L 05/03/17 07:00 MCHC 33.3 g/dl (31.0-37.0) 05/03/17 07:00 RDW 14.1 % (11.5-14.5) 05/03/17 07:00 Plt Count 108 10^3/uL (120.0-450.0) L 05/03/17 07:00 MPV 11.0 fl (7.0-11.0) 05/03/17 07:00 Gran % 58.1 % (50.0-68.0) 05/01/17 19:29 Lymph % (Auto) 34.2 % (22.0-35.0) 05/01/17 19:29 [place] % (Auto) 6.3 % (1.0-6.0) H 05/01/17 19:29 Eos % (Auto) 0.7 % (1.5-5.0) L 05/01/17 19:29 Baso % (Auto) 0.7 % (0.0-3.0) 05/01/17 19:29 Gran # 4.28 (1.4-6.5) 05/01/17 19:29 Lymph # 2.5 (1.2-3.4) 05/01/17 19:29 [place] # 0.5 (0.1-0.6) 05/01/17 19:29 Eos # 0.1 (0.0-0.7) 05/01/17 19:29 Baso # 0.05 K/mm3 (0.0-2.0) 05/01/17 19:29 PT 12.2 Seconds (9.9-11.8) H 05/01/17 19:29 INR 1.13 (0.93-1.08) H 05/01/17 19:29 APTT 28.5 Seconds (23.7-30.8) 05/01/17 19:29 Sodium 138 mmol/L (132-148) 05/03/17 07:00 Potassium 3.9 mmol/L (3.6-5.0) 05/03/17 07:00 Chloride 106 mmol/L (95-110) 05/03/17 07:00 Carbon Dioxide 26 mmol/L (21-33) 05/03/17 07:00 Anion Gap 10 (10-20) 05/03/17 07:00 BUN 7 mg/dL (7-21) 05/03/17 07:00 Creatinine 0.5 mg/dL (0.5-1.4) 05/03/17 07:00 Est GFR ( Amer) > 60 05/03/17 07:00 Est GFR (Non-Af Amer) > 60 05/03/17 07:00 POC Glucose (mg/dL) 106 mg/dL (65-110) 05/03/17 12:01 Random Glucose 188 mg/dL (70-110) H 05/03/17 07:00 Calcium 8.1 mg/dL (8.4-10.5) L 05/03/17 07:00 Total Bilirubin 0.5 mg/dL (0.2-1.3) 05/03/17 07:00 AST 15 U/L (15-59) 05/03/17 07:00 ALT 27 U/L (7-56) 05/03/17 07:00 Alkaline Phosphatase 58 U/L (38-133) 05/03/17 07:00 Total Protein 5.7 g/dL (5.8-8.3) L 05/03/17 07:00 Albumin 3.1 g/dL (3.0-4.8) 05/03/17 07:00 Globulin 2.6 gm/dL 05/03/17 07:00 Albumin/Globulin Ratio 1.2 (1.1-1.8) 05/03/17 07:00 Lipase 200 U/L (23-300) 05/01/17 19:29 Urine Color Yellow (YELLOW) 05/01/17 22:15 Urine Appearance Clear (CLEAR) 05/01/17 22:15 Urine pH 6.0 (4.7-8.0) 05/01/17 22:15 Ur Specific [place] 1.015 (1.005-1.035) 05/01/17 22:15 Urine Protein Trace mg/dL (<30 mg/dL) H 05/01/17 22:15 Urine Glucose (UA) >=1000 mg/dL (NEGATIVE) 05/01/17 22:15 Urine Ketones Trace mg/dL (NEGATIVE) H 05/01/17 22:15 Urine Blood Negative (NEGATIVE) 05/01/17 22:15 Urine Nitrate Negative (NEGATIVE) 05/01/17 22:15 Urine Bilirubin Small (NEGATIVE) H 05/01/17 22:15 Urine Urobilinogen 2.0 E.U./dL (<1 E.U./dL) H 05/01/17 22:15 Ur Leukocyte Esterase Negative [place]/uL (NEGATIVE) 05/01/17 22:15 Urine RBC 0 - 2 /hpf (0-2) 05/01/17 22:15 Urine WBC 0 - 2 /hpf (0-6) 05/01/17 22:15 Ur Epithelial Cells 0 - 2 /hpf (0-5) 05/01/17 22:15 Attending/Attestation - Attestation I have personally seen and examined this patient.: Yes I have fully participated in the care of the patient.: Yes I have reviewed all pertinent clinical information, including history, physical exam and plan: Yes Notes (Text): 05/04/17 07:51 Attending note; Patient seen and examined with resident. Patient is a 42-year-old male with a history of chronic pancreatitis, malabsorption, history of pancreatic surgery is admitted with abdominal pain nausea and diarrhea after eating. Patient is not able to get ZENpep as outpatient. Zenpep delivered from the pharmacy. Tolerating diet now. Patient is strongly advised to follow-up with PMD Dr. hightower. Follow-up with GI Dr. Valentin. Diagnosis; Chronic pancreatitis Malabsorption History of pancreatic surgery
== END 2017-05-03 17:39 | disposition home or self-care (01) | DRG 557 ==
LOC: ED 17:06 → ERH 22:04 → 3RSO 23:24
PROVIDERS: ADMIT Internal Medicine; ATTEND Internal Medicine
DX: K86.1 Other chronic pancreatitis (principal); K86.3 Pseudocyst of pancreas; E10.65 Type 1 diabetes mellitus with hyperglycemia; K76.0 Fatty (change of) liver, not elsewhere classified; E86.0 Dehydration; B18.2 Chronic viral hepatitis C; E53.8 Deficiency of other specified B group vitamins; I10 Essential (primary) hypertension; K90.9 Intestinal malabsorption, unspecified; E78.1 Pure hyperglyceridemia; E78.5 Hyperlipidemia, unspecified; F17.290 Nicotine dependence, other tobacco product, uncomplicated; G89.29 Other chronic pain; M54.9 Dorsalgia, unspecified; I73.9 Peripheral vascular disease, unspecified; K21.9 Gastro-esophageal reflux disease without esophagitis; Z80.8 Family history of malignant neoplasm of other organs or systems; Z82.49 Family history of ischemic heart disease and other diseases of the circulatory system; Z87.440 Personal history of urinary (tract) infections; Z87.442 Personal history of urinary calculi; Z90.49 Acquired absence of other specified parts of digestive tract; R00.1 Bradycardia, unspecified; R42 Dizziness and giddiness; H53.8 Other visual disturbances; F32.89 Other specified depressive episodes; Z91.048 Other nonmedicinal substance allergy status; Z79.4 Long term (current) use of insulin; R40.2412 Glasgow coma scale score 13-15, at arrival to emergency department; M19.90 Unspecified osteoarthritis, unspecified site; R16.2 Hepatomegaly with splenomegaly, not elsewhere classified

== ENCOUNTER 2017-06-05 19:19 | Inpatient (IN) | payer OTHER ==
[2017-06-05 19:20] VITALS: BMI 23.6
[2017-06-05] MEDS ORDERED: HYDROmorphone 1 mg/ml ISec IVP STA (19:34)
--- NOTE | 2017-06-05 19:40 | ED PDOC ---
Arrival/HPI - General Chief Complaint: Abdominal Pain Time Seen by Provider: 06/05/17 19:26 - History of Present Illness Narrative History of Present Illness (Text): 06/05/17 19:37 42 M well known to this ER with PMHx of hypertriglyceridemia presents with a week's duration of sharp, non-radiating abdominal pain of 8/10 severity with associated symptoms of n/v/d. Patient states that this abdominal pain is similar to other bouts of pancreatitis. Patient denies cp/sob/f/ch/wang/ dizziness. No further complaints at this time. (Jose D De La Cruz) Past Medical History - Provider Review Nursing Documentation Reviewed: Yes - Infectious Disease Hx of Infectious Diseases: None - Tetanus Immunization Tetanus Immunization: Unknown - Cardiac Hx Cardiac Disorders: Yes Hx Cardiac Arrhythmia: Yes (bradycardia) Hx Hypertension: Yes Hx Peripheral Vascular Disease: Yes - Pulmonary Hx Respiratory Disorders: Yes (chronic dry cough x 8 months since sx) - Neurological Hx Neurological Disorder: Yes Hx Dizziness: Yes (falls from dizziness since 2013) - HEENT Hx HEENT Disorder: Yes (blurry vision) Other/Comment: [place] due to earwax - Renal Hx Kidney Stones: Yes - Endocrine/Metabolic Hx Endocrine Disorders: Yes Hx Diabetes Mellitus Type 1: Yes - Hematological/Oncological Hx Blood Disorders: Yes Hx Hepatitis C: Yes - Integumentary Hx Dermatological Disorder: Yes Other/Comment: chronic itchy skin since "surgery 8 months ago" - Musculoskeletal/Rheumatological Hx Falls: Yes ("dizzy and falling since 2013") - Gastrointestinal Hx Gastrointestinal Disorders: Yes (chronic constipation) Hx Gall Bladder Disease: Yes (gallstones) Hx Gastroesophageal Reflux: Yes Hx Pancreatitis: Yes - Genitourinary/Gynecological Hx Genitourinary Disorders: Yes (burning on urination "sometimes') Hx Urinary Tract Infection: Yes - Psychiatric Hx Depression: Yes Hx Substance Use: No - Surgical History Hx Appendectomy: Yes Hx Cholecystectomy: Yes Other/Comment: 2008 in [place] ap ruptured damagec pancreas, had sx on pancreas and gb sx at [facility] 8 months ago - Anesthesia Hx Anesthesia: Yes - Suicidal Assessment Feels Threatened In Home Enviroment: No Family/Social History Family/Social History: Hypertension Smoking Status: Heavy Smoker > 10 Cigarettes Daily Hx Alcohol Use: No Hx Substance Use: No Hx Substance Use Treatment: No Allergies/Home Meds Allergies/Adverse Reactions: Allergies dy Allergy (Mild, Uncoded 04/25/17 13:16) ITCHING hair color dye Allergy (Uncoded 04/25/17 13:16) RASH Home Medications: Home Meds Medication Instructions Recorded Confirmed Colesevelam HCl [Welchol] 625 mg PO BID 01/25/17 05/01/17 Insulin Human (NPH)/Regular 25 units SC BID 05/01/17 05/01/17 [Novolin 70/30 (70/30 units/ml) 10 ml] Polyethylene Glycol 3350 [Miralax] 17 gm PO DAILY PRN 05/01/17 05/01/17 Review of Systems - Physician Review All systems were reviewed & negative as marked: Yes - Review of Systems Constitutional: Normal. absent: Fatigue, Weight Change, Fevers Eyes: Normal. absent: Vision Changes, Photophobia, Eye Pain ENT: Normal. absent: Hearing Changes, Tinnitus, TMJ Pain Respiratory: Normal. absent: SOB, Cough, Sputum Cardiovascular: Normal. absent: Chest Pain, Palpitations, Edema, Calf Pain Gastrointestinal: Abdominal Pain, Diarrhea, Nausea, Vomiting. absent: Hematochezia, Hematemesis Genitourinary Male: Normal. absent: Dysuria, Frequency, Hematuria Musculoskeletal: Normal. absent: Arthralgias, Back Pain, Neck Pain Skin: Normal. absent: Rash, Pruritis, Skin Lesions Neurological: Normal. absent: Headache, Dizziness, Focal Weakness Endocrine: Normal. absent: Diaphoresis, Polyuria, Polydipsia Hemo/Lymphatic: Normal. absent: Adenopathy, Easy Bleeding, Easy Bruising Psychiatric: Normal. absent: Anxiety, Depression, Suicidal Ideation Physical Exam Temperature: Afebrile Blood Pressure: Hypertensive Pulse: Regular Respiratory Rate: Normal Appearance: Positive for: Well-Appearing, Non-Toxic, Comfortable Pain Distress: None Mental Status: Positive for: Alert and Oriented X 3 - Systems Exam Head: Present: Atraumatic, Normocephalic. No: Tenderness, Contusion Pupils: Present: PERRL. No: Sluggish, Non-Reactive, Pinpoint Extroacular Muscles: Present: EOMI. No: Gaze Palsy, Entrapment Conjunctiva: Present: Normal. No: Injected, Icteric Ears: Present: Normal, NORMAL TM, Normal Canal. No: Erythema, TM Bulging Mouth: Present: Moist Mucous Membranes. No: Dry, Drooling, Trismus Pharnyx: Present: Normal. No: ERYTHEMA, EXUDATE, TONSILS ENLARGED Nose (External): Present: Atraumatic. No: Abrasion, Contusion, Laceration Nose (Internal): Present: Normal Inspection. No: No Active Bleeding, Engorged, Rhinorrhea Neck: Present: Normal Range of Motion. No: Meningeal Signs, MIDLINE TENDERNESS , JVD Respiratory/Chest: Present: Clear to Auscultation, Good Air Exchange. No: Respiratory Distress, Accessory Muscle Use, Wheezes, Decreased Breath Sounds Cardiovascular: Present: Regular Rate and Rhythm, Normal S1, S2, Peripheal Pulses Present. No: Murmurs Abdomen: Present: Tenderness, Scars (appendectomy scars). No: Distention, Normal Bowel Sounds (hypoactive bowel sounds), Peritoneal Signs, Rebound, Guarding, Rovsing's Sign Present Back: Present: Normal Inspection. No: CVA Tenderness, Midline Tenderness, Paraspinal Tenderness Upper Extremity: Present: Normal Inspection, Normal ROM, NORMAL PULSES. No: Cyanosis, Edema Lower Extremity: Present: Normal Inspection, NORMAL PULSES. No: Edema, CALF TENDERNESS Neurological: Present: GCS=15, CN II-XII Intact, Speech Normal, Motor Func Grossly Intact, Normal Sensory Function, Normal Cerebellar Funct Skin: Present: Warm, Dry, Normal Color. No: Rashes, Diaphoretic Psychiatric: Present: Alert, Oriented x 3, Normal Insight, Normal Concentration , Normal Affect, Normal Mood, Anxious Vital Signs Temp Pulse Resp BP Pulse Ox 06/05/17 20:12 138/63 06/05/17 19:36 97.9 F 06/05/17 19:25 59 L 18 168/105 H 100 Medical Decision Making ED Course and Treatment: Patient Seen With Resident: In agreement with resident note which contains more details about the patient. Patient was seen and evaluated with resident. Came up with plan and treatment together. (Keo Gomez) Assessed 06/05/17 19:44 Impression: 42 M with abdominal pain and n/v/d consistent with past episodes of pancreatitis Plan: - Zofran - Dilaudid - Fluids - NPO - Lipase, amylase, CBC, CMP - Cardiac ISO, EKG - Reassess Reassessed 06/05/17 20:42 - EKG shows LAD, sinus bradycardia. No marked change from previous EKG, Reassessed 06/05/17 21:06 - CMP shows hyperglycemia; Lipase and amylase negative. CBC negative - Spoke to Dr. Guzman and medical aide, patient will be admitted to med/surg (Jose D De La Cruz) - Lab Interpretations Lab Results: 06/05/17 19:40 06/05/17 19:40 Lab Results 06/05/17 19:40: Sodium 135, Potassium 4.3, Chloride 95 L, Carbon Dioxide 21, Anion Gap 23 H, BUN 15, Creatinine 0.6, Est GFR ( Amer) > 60, Est GFR ( Non-Af Amer) > 60, Random Glucose 360 H* D, Calcium 9.3, Total Bilirubin 0.9, AST 22, ALT 34, Alkaline Phosphatase 117, Lactate Dehydrogenase 620, Total Creatine Kinase 142, Troponin I < 0.01, Total Protein 8.5 H, Albumin 4.5, Globulin 4.0, Albumin/Globulin Ratio 1.1, Amylase 50, Lipase 151 06/05/17 19:40: WBC 10.8 D, RBC 5.75, Hgb 15.6 D, Hct 41.9 L, MCV 72.9 L, MCH 27.1, MCHC 37.2 H, RDW 14.3, Plt Count 252, Gran % 79.9 H, Lymph % (Auto) 15.3 L , [place] % (Auto) 3.0, Eos % (Auto) 1.2 L, Baso % (Auto) 0.6, Gran # 8.65 H, Lymph # 1.7, [place] # 0.3, Eos # 0.1, Baso # 0.06 - Medication Orders Current Medication Orders: Sodium Chloride (Sodium Chloride 0.9%) 1,000 mls @ 100 mls/hr IV .Q10H DO Last Admin: 06/05/17 19:51 Dose: 100 mls/hr Discontinued Medications Hydromorphone HCl (Dilaudid) 1 mg IVP STAT STA Stop: 06/05/17 19:35 Last Admin: 06/05/17 20:13 Dose: 1 mg Metoclopramide HCl (Reglan) 10 mg IVP ONCE ONE Stop: 06/05/17 20:09 Ondansetron HCl (Zofran Inj) 4 mg IVP STAT STA Stop: 06/05/17 19:35 Last Admin: 06/05/17 19:49 Dose: 4 mg Ondansetron HCl (Zofran Inj) Confirm Administered Dose 4 mg .ROUTE .STK-MED ONE Stop: 06/05/17 19:39 Last Admin: 06/05/17 19:49 Dose: Disposition/Present on Arrival - Present on Arrival Any Indicators Present on Arrival: Yes History of DVT/PE: No History of Uncontrolled Diabetes: Yes Urinary Catheter: No History of Decub. Ulcer: No History Surgical Site Infection Following: None - Disposition Have Diagnosis and Disposition been Completed?: Yes Disposition Time: 21:00 Patient Plan: Admission - Disposition Diagnosis: Pancreatitis Disposition: HOSPITALIZED Patient Problems: Current Active Problems Problem Status Onset Pancreatitis Acute Condition: GOOD
[2017-06-05] MEDS ORDERED: Sodium Chloride 0.9% 1,000 ML IV SCH (19:45)
[2017-06-05 20:45] LABS: ALB/GLOB RATIO 1.1 (1.1-1.8); ALKALINE PHOSPHATASE 117 U/L (38-126); ALT/SGPT 34 U/L (7-56); AMYLASE 50 U/L (35-125); AST/SGOT 22 U/L (17-59); BASO # 0.06 K/mm3 (0.0-2.0); BASO % 0.6 % (0.0-3.0); BILIRUBIN,TOTAL 0.9 mg/dL (0.2-1.3); BLOOD UREA NITROGEN 15 mg/dL (7-21); CALCIUM 9.3 mg/dL (8.4-10.5); CARBON DIOXIDE 21 mmol/L (21-33); CHLORIDE 95 mmol/L (98-107); EOS # 0.1 (0.0-0.7); EOS % 1.2 % (1.5-5.0); GFR AFRICAN-AMERICAN > 60; GRAN # 8.65 (1.4-6.5); GRAN % 79.9 % (50.0-68.0); HEMATOCRIT 41.9 % (42.0-52.0); LIPASE 151 U/L (23-300); LYMPH # 1.7 (1.2-3.4); LYMPH % 15.3 % (22.0-35.0); MEAN CELL VOLUME 72.9 fl (80.0-105.0); MEAN CORPUSCULAR HEMOGLOBIN 27.1 pg (25.0-35.0); MEAN CORPUSCULAR HGB CONC 37.2 g/dl (31.0-37.0); MONO # 0.3 (0.1-0.6); PLATELET COUNT 252 10^3/uL (120.0-450.0); POTASSIUM 4.3 mmol/L (3.6-5.0); RED CELL DISTRIBUTION WIDTH 14.3 % (11.5-14.5); SODIUM 135 mmol/L (132-148); TOTAL PROTEIN 8.5 g/dL (5.8-8.3); WHITE BLOOD COUNT 10.8 10^3/ul (4.5-11.0)
[2017-06-05 20:56] LABS: GLUCOSE,RANDOM 360 mg/dL (70-110)
[2017-06-05 20:59] LABS: TROPONIN I < 0.01 ng/mL
[2017-06-05 22:04] LABS: URINE BILIRUBIN NEGATIVE (NEGATIVE); URINE BLOOD NEGATIVE (NEGATIVE); URINE GLUCOSE (UA) >=1000 mg/dL (NEGATIVE); URINE KETONE >=80 mg/dL (NEGATIVE); URINE LEUKOCYTE ESTERASE NEGATIVE Leu/uL (NEGATIVE); URINE PROTEIN 30 mg/dL (<30 mg/dL); URINE UROBILINOGEN 0.2 E.U./dL (<1 E.U./dL)
[2017-06-05 22:09] LABS: URINE APPEARANCE CLEAR (CLEAR); URINE COLOR YELLOW (YELLOW)
[2017-06-05 22:26] LABS: URINE BACTERIA SMALL (NEG); URINE EPITHELIAL CELLS 0 - 2 /hpf (0-5); URINE RBC 0 - 2 /hpf (0-2)
[2017-06-05] MEDS ORDERED: Sodium Chloride 0.9% 2,000 ML IV STA (22:34)
[2017-06-05 23:01] LABS: VENOUS BLOOD GAS BASE EXCESS -0.1 mmol/L (0.0-2.0); VENOUS BLOOD PH 7.34 (7.32-7.43)
[2017-06-06 00:33] LABS: CHOLESTEROL 182 mg/dL (130-200)
[2017-06-06 01:11] LABS: BLOOD UREA NITROGEN 14 mg/dL (7-21); CALCIUM 8.1 mg/dL (8.4-10.5); CARBON DIOXIDE 22 mmol/L (21-33); CHLORIDE 101 mmol/L (98-107); GFR AFRICAN-AMERICAN > 60; POTASSIUM 4.9 mmol/L (3.6-5.0); SODIUM 134 mmol/L (132-148)
[2017-06-06 01:16] LABS: GLUCOSE,RANDOM 277 mg/dL (70-110)
[2017-06-06] MEDS ORDERED: Sodium Chloride 0.9% 1,000 ML IV SCH (01:28)
[2017-06-06] MEDS ORDERED: Sodium Chloride 0.9% 1,000 ML IV STA (01:28)
--- NOTE | 2017-06-06 02:56 | CP.PCM.HP ---
<PEDRO MOREJON - Last Filed: 06/06/17 02:13> History of Present Illness - History of Present Illness History of Present Illness: Pedro Morejon DO PGY1 - Internal Medicine H&P CC: Abdominal pain, vomiting HPI: 42 yo M with PMH of HCV, Arthritis, chronic pancreatitis, pancreatic cysts , DM, hypertriglyceridemia who presented to the ED with complaints of abdominal pain, vomiting, and diarrhea. He reports 30-40 episodes of green liquid vomiting and 5 episodes of non-bloody diarrhea since this morning. He has had the abdominal pain since this afternoon, at which point he stopped having diarrhea, but continued to pass gas. Patient has been nauseous, unable to tolerate PO food or medications for the past week, and so he has not been taking his medications, including his pancreatic enzyme replacement meds, since he has not been eating anything. Patient denies fever, chills, chest pain, SOB, constipation, and urinary symptoms. He has had all these same symptoms many times in the past, and has been worked up extensively, PMH: Hepatitis C, Chronic Pancreatitis, DM, HLD, Arthritis, chronic back pain PSH: Appendectomy, Cholecystectomy, Pancreatic Pseudocyst resection Family: Mother-Bone Cancer, Father- from [place] at 53 Social: Current 3 cigars daily, denies alcohol or illicit drug use; lives alone Allergy: Hair Dye Home meds: As per NOV ROS: Constitutional: pt denies fever, chills, generalized weakness ENT: pt denies dysphagia, otalgia, hearing deficit, rhinorrhea Eyes: pt denies sudden loss of vision, diplopia, blurred vision MSK: pt denies muscle stiffness, joint pain, extremity cramping Cardio: pt denies sob, heart murmur, CP Pulm: pt denies cough, hemoptysis, wheeze GI: +abdominal pain, n/v/d pt denies loss of appetite, constipation, melena : pt denies burning on urination, urinary frequency, hematuria, urinary urgency Neuro: pt denies paresis, paresthesia, dizziness, wang, numbness, tingling Derm: pt denies skin changes, lesions, nail changes Endo: pt denies intolerance to heat/cold, diaphoresis, night sweats, polydipsia Psych: pt denies anxiety, depression, mood changes Present on Admission - Present on Admission Any Indicators Present on Admission: Yes History of Uncontrolled Diabetes: Yes Past Patient History - Infectious Disease Hx of Infectious Diseases: None - Tetanus Immunizations Tetanus Immunization: Unknown - Past Medical History & Family History Past Medical History?: Yes - Past Social History Smoking Status: Heavy Smoker > 10 Cigarettes Daily - CARDIAC Hx Cardiac Disorders: Yes Hx Cardia Arrhythmia: Yes (bradycardia) Hx Hypertension: Yes Hx Peripheral Vascular Disease: Yes - PULMONARY Hx Respiratory Disorders: Yes (chronic dry cough x 8 months since sx) - NEUROLOGICAL Hx Neurological Disorder: Yes Hx Dizziness: Yes (falls from dizziness since 2013) - HEENT Hx HEENT Problems: Yes (blurry vision) Other/Comment: [facility] due to earwax - RENAL Hx Kidney Stones: Yes - ENDOCRINE/METABOLIC Hx Endocrine Disorders: Yes Hx Diabetes Mellitus Type 1: Yes - HEMATOLOGICAL/ONCOLOGICAL Hx Blood Disorders: Yes Hx Hepatitis C: Yes - INTEGUMENTARY Hx Dermatological Problems: Yes Other/Comment: chronic itchy skin since "surgery 8 months ago" - MUSCULOSKELETAL/RHEUMATOLOGICAL Hx Falls: Yes ("dizzy and falling since 2013") - GASTROINTESTINAL Hx Gastrointestinal Disorders: Yes (chronic constipation) Hx Gall Bladder Disease: Yes (gallstones) Hx Gastroesophageal Reflux: Yes Hx Pancreatitis: Yes - GENITOURINARY/GYNECOLOGICAL Hx Genitourinary Disorders: Yes (burning on urination "sometimes') Hx Urinary Tract Infection: Yes - PSYCHIATRIC Hx Depression: Yes Hx Substance Use: No - SURGICAL HISTORY Hx Appendectomy: Yes Hx Cholecystectomy: Yes Other/Comment: 2008 in [place] ap ruptured damagec pancreas, had sx on pancreas and gb sx at [facility] 8 months ago - ANESTHESIA Hx Anesthesia: Yes Meds Allergies/Adverse Reactions: Allergies Allergy/AdvReac Type Severity Reaction Status Date / Time dy Allergy Mild ITCHING Uncoded 04/25/17 13:16 hair color dye Allergy RASH Uncoded 04/25/17 13:16 Physical Exam - Constitutional Appears: Non-toxic, No Acute Distress - Head Exam Head Exam: ATRAUMATIC, NORMOCEPHALIC - Eye Exam Eye Exam: EOMI, Normal appearance, PERRL - ENT Exam ENT Exam: Mucous Membranes Moist - Neck Exam Neck exam: Negative for: Lymphadenopathy, Thyromegaly - Respiratory Exam Respiratory Exam: Clear to Auscultation Bilateral. absent: Rales, Rhonchi, Wheezes - Cardiovascular Exam Cardiovascular Exam: RRR, +S1, +S2 - GI/Abdominal Exam GI & Abdominal Exam: Guarding, Soft. absent: Distended, Firm, Rebound, Rigid Additional comments: RUQ and epigastric tenderness - Extremities Exam Extremities exam: Positive for: full ROM, normal inspection. Negative for: calf tenderness, pedal edema - Back Exam Back exam: absent: CVA tenderness (L), CVA tenderness (R) - Neurological Exam Neurological exam: Alert, CN II-XII Intact, Oriented x3 - Psychiatric Exam Psychiatric exam: Normal Affect, Normal Mood - Skin Skin Exam: Dry, Intact, Normal Color Results - Vital Signs Recent Vital Signs: Last Vital Signs Temp 97.9 F 06/05/17 19:36 Pulse 61 06/05/17 23:02 Resp 18 06/05/17 23:02 BP 141/66 06/05/17 23:02 Pulse Ox 100 06/05/17 23:02 - Labs Result Diagrams: 06/05/17 19:40 06/06/17 00:30 Labs: Laboratory Results - last 24 hr 06/05/17 06/05/17 06/06/17 21:50 22:57 00:30 pO2 34 VBG pH 7.34 VBG pCO2 49.0 VBG HCO3 26.4 VBG Total CO2 27.9 VBG O2 Sat (Calc) 70.8 H VBG Base Excess -0.1 L VBG Potassium 5.1 Sodium 133.0 134 Chloride 102.0 101 Glucose 349 H Lactate 1.1 FiO2 21.0 Potassium 4.9 Carbon Dioxide 22 Anion Gap 16 BUN 14 Creatinine 0.5 Est GFR ( Amer) > 60 Est GFR (Non-Af Amer) > 60 Random Glucose 277 H Calcium 8.1 L Venous Blood Potassium 5.1 Urine Color Yellow Urine Appearance Clear Urine pH 6.0 Ur Specific [place] >= 1.030 Urine Protein 30 H Urine Glucose (UA) >=1000 Urine Ketones >=80 Urine Blood Negative Urine Nitrate Negative Urine Bilirubin Negative Urine Urobilinogen 0.2 Ur Leukocyte Esterase Negative Urine RBC 0 - 2 Urine WBC 1 - 3 Ur Epithelial Cells 0 - 2 Urine Bacteria Small Assessment & Plan - Assessment and Plan (Free Text) Assessment: 42 year old male with a past medical history of Hep C, Arthritis, chronic pancreatitis with insufficiency, pancreatic cysts, DM, hypertriglyceridemia, who presented to the ED with complaints of N/V/D and abdominal pain that started today Plan: 1. Acute on Chronic Abdominal Pain, with Vomiting and Diarrhea -likely 2/2 acute on chronic pancreatitis vs SBO vs gastritis -Patient reports flatulence, and exam does not indicate acute abdomen, so less likely to have SBO -Patient has not been taking PO meds, including pancreatic enzyme supplements, which likely precipitated this episode -Cont home pancreatic enzymes -morphine 2mg q4h for pain control -IVF hydration NS@175cc/hr (after 3L NS bolus); patient is hyperglycemic, avoid D5 or LR -zofran prn for n/v -NPO overnight, will progress as tolerated starting in AM -GI consulted (Tino), will follow recommendations 2. HONK; h/o DM -Patient presented with BG 360, with elevated anion gap and ketonuria, but no acidosis. BG improved to 277, and AG closed after 2L NS bolus, so less likely DKA, not requiring insulin drip -Received 3L NS total, and on IVF NS@175cc/hr -NPO -SSI-med -Fingersticks q6h -Patient reportedly takes total 50u regular insulin daily, without basal insulin. Hold basal insulin to see how pt responds to SSI 3. Hypertriglyceridemia -Patient presented with TG 2050, HDL 14. Hypertriglyceridemia may have precipitated acute pancreatitis -Continue aggressive IVF hydration -cont home Lopid and colesevelam GI/DVT PPx - Heparin, Protonix Patient seen and case discussed with attending <Janine Wasserman - Last Filed: 06/06/17 10:11> Results - Vital Signs Recent Vital Signs: Last Vital Signs Temp 98.1 F 06/06/17 08:00 Pulse 67 06/06/17 08:00 Resp 20 06/06/17 08:00 BP 112/63 06/06/17 08:00 Pulse Ox 97 06/06/17 08:00 - Labs Result Diagrams: 06/06/17 06:54 06/06/17 06:54 Labs: Laboratory Results - last 24 hr 06/05/17 06/05/17 06/06/17 21:50 22:57 00:30 WBC RBC Hgb Hct MCV MCH MCHC RDW Plt Count MPV Gran % Lymph % (Auto) [place] % (Auto) Eos % (Auto) Baso % (Auto) Gran # Lymph # [place] # Eos # Baso # pO2 34 VBG pH 7.34 VBG pCO2 49.0 VBG HCO3 26.4 VBG Total CO2 27.9 VBG O2 Sat (Calc) 70.8 H VBG Base Excess -0.1 L VBG Potassium 5.1 Sodium 133.0 134 Chloride 102.0 101 Glucose 349 H Lactate 1.1 FiO2 21.0 Potassium 4.9 Carbon Dioxide 22 Anion Gap 16 BUN 14 Creatinine 0.5 Est GFR ( Amer) > 60 Est GFR (Non-Af Amer) > 60 POC Glucose (mg/dL) Random Glucose 277 H Calcium 8.1 L Phosphorus Magnesium Total Bilirubin AST ALT Alkaline Phosphatase Total Protein Albumin Globulin Albumin/Globulin Ratio Triglycerides Cholesterol LDL Cholesterol Direct HDL Cholesterol Venous Blood Potassium 5.1 Urine Color Yellow Urine Appearance Clear Urine pH 6.0 Ur Specific [place] >= 1.030 Urine Protein 30 H Urine Glucose (UA) >=1000 Urine Ketones >=80 Urine Blood Negative Urine Nitrate Negative Urine Bilirubin Negative Urine Urobilinogen 0.2 Ur Leukocyte Esterase Negative Urine RBC 0 - 2 Urine WBC 1 - 3 Ur Epithelial Cells 0 - 2 Urine Bacteria Small 06/06/17 06/06/17 06/06/17 06:11 06:54 06:54 WBC 6.1 D RBC 4.55 Hgb 11.4 L D Hct 33.4 L MCV 73.4 L MCH 25.1 MCHC 34.1 RDW 14.4 Plt Count 166 MPV 11.4 H Gran % 55.8 Lymph % (Auto) 35.0 [place] % (Auto) 5.9 Eos % (Auto) 2.8 Baso % (Auto) 0.5 Gran # 3.42 Lymph # 2.1 [place] # 0.4 Eos # 0.2 Baso # 0.03 pO2 VBG pH VBG pCO2 VBG HCO3 VBG Total CO2 VBG O2 Sat (Calc) VBG Base Excess VBG Potassium Sodium 137 Chloride 106 Glucose Lactate FiO2 Potassium 4.1 Carbon Dioxide 23 Anion Gap 12 BUN 12 Creatinine 0.5 Est GFR ( Amer) > 60 Est GFR (Non-Af Amer) > 60 POC Glucose (mg/dL) 260 H Random Glucose 237 H Calcium 7.7 L Phosphorus 3.2 Magnesium 1.6 L Total Bilirubin 0.6 AST 19 ALT 28 Alkaline Phosphatase 67 Total Protein 6.2 Albumin 3.1 Globulin 3.1 Albumin/Globulin Ratio 1.0 L Triglycerides 816 H Cholesterol 137 LDL Cholesterol Direct < 30 HDL Cholesterol 14 L Venous Blood Potassium Urine Color Urine Appearance Urine pH Ur Specific [place] Urine Protein Urine Glucose (UA) Urine Ketones Urine Blood Urine Nitrate Urine Bilirubin Urine Urobilinogen Ur Leukocyte Esterase Urine RBC Urine WBC Ur Epithelial Cells Urine Bacteria Attending/Attestation - Attestation I have personally seen and examined this patient.: Yes I have fully participated in the care of the patient.: Yes I have reviewed all pertinent clinical information: Yes Notes (Text): 06/06/17 10:10 Agree with evaluation and plan.
[2017-06-06] MEDS: Morphine 2 mg/ml ISec IVP PRN ×3 (05:17→20:13)
[2017-06-06] MEDS: Insulin Reg-MEDIUM-Coverage SC SCH ×3 (06:28→18:55)
[2017-06-06 07:02] LABS: BASO # 0.03 K/mm3 (0.0-2.0); BASO % 0.5 % (0.0-3.0); EOS # 0.2 (0.0-0.7); EOS % 2.8 % (1.5-5.0); GRAN # 3.42 (1.4-6.5); GRAN % 55.8 % (50.0-68.0); HEMATOCRIT 33.4 % (42.0-52.0); LYMPH # 2.1 (1.2-3.4); MEAN CELL VOLUME 73.4 fl (80.0-105.0); MEAN CORPUSCULAR HEMOGLOBIN 25.1 pg (25.0-35.0); MEAN CORPUSCULAR HGB CONC 34.1 g/dl (31.0-37.0); MEAN PLATELET VOLUME 11.4 fl (7.0-11.0); MONO # 0.4 (0.1-0.6); MONO % 5.9 % (1.0-6.0); RED CELL DISTRIBUTION WIDTH 14.4 % (11.5-14.5); WHITE BLOOD COUNT 6.1 10^3/ul (4.5-11.0)
--- NOTE | 2017-06-06 07:42 | CP.PCM.CON ---
<Cesario Oreilly - Last Filed: 06/06/17 07:48> History of Present Illness - History of Present Illness History of Present Illness: GI Consult Note for Dr. Floyd 42 y/o M with PMH of Hepatitis C, Chronic pancreatitis, DM, HLD, Arthritis, and Chronic back pain presents with worsening abdominal pain and vomiting over the past week. Patient states he has had over 30 episodes of vomiting. Vomiting is nonbloody and bilious. Pt admits to not taking his medication over the past week because he has not been able to get them. Before this time, patient states he has been compliant with all his medications. He mentions the pain has been so severe he has not left his home. He was not able to get an appointment with his GI doctor for his pain, so his GI doctor recommended he come into the ED. Pt has not been able to tolerate PO intake over the last several days. Over the past month, patient admits to dysphagia with solid foods in which his PMD prescribed a barium swallow which he has not yet received. PMH: Hepatitis C, Chronic Pancreatitis, DM, HLD, Arthritis, chronic back pain PSH: Appendectomy, Cholecystectomy, Pancreatic Pseudocyst resection FMH: [place], Bone Cancer Social Hx: Admits to occasional cigar use. Denies alcohol or illicit drug use Allergy: Hair Dye Medication: Reviewed, as per MAR Review of Systems - Review of Systems Review of Systems: 12 point ROS as per HPI, otherwise negative Past Patient History - Infectious Disease Hx of Infectious Diseases: None - Tetanus Immunizations Tetanus Immunization: Unknown - Past Medical History & Family History Past Medical History?: Yes - Past Social History Smoking Status: Heavy Smoker > 10 Cigarettes Daily - CARDIAC Hx Cardiac Disorders: Yes Hx Cardia Arrhythmia: Yes (bradycardia) Hx Hypertension: Yes Hx Peripheral Vascular Disease: Yes - PULMONARY Hx Respiratory Disorders: Yes (chronic dry cough x 8 months since sx) - NEUROLOGICAL Hx Neurological Disorder: Yes Hx Dizziness: Yes (falls from dizziness since 2013) - HEENT Hx HEENT Problems: Yes (blurry vision) Other/Comment: [place] due to earwax - RENAL Hx Kidney Stones: Yes - ENDOCRINE/METABOLIC Hx Endocrine Disorders: Yes Hx Diabetes Mellitus Type 1: Yes - HEMATOLOGICAL/ONCOLOGICAL Hx Blood Disorders: Yes Hx Hepatitis C: Yes - INTEGUMENTARY Hx Dermatological Problems: Yes Other/Comment: chronic itchy skin since "surgery 8 months ago" - MUSCULOSKELETAL/RHEUMATOLOGICAL Hx Falls: Yes ("dizzy and falling since 2013") - GASTROINTESTINAL Hx Gastrointestinal Disorders: Yes (chronic constipation) Hx Gall Bladder Disease: Yes (gallstones) Hx Gastroesophageal Reflux: Yes Hx Pancreatitis: Yes - GENITOURINARY/GYNECOLOGICAL Hx Genitourinary Disorders: Yes (burning on urination "sometimes') Hx Urinary Tract Infection: Yes - PSYCHIATRIC Hx Depression: Yes Hx Substance Use: No - SURGICAL HISTORY Hx Appendectomy: Yes Hx Cholecystectomy: Yes Other/Comment: 2009 in [place] ap ruptured damagec pancreas, had sx on pancreas and gb sx at [facility] 8 months ago - ANESTHESIA Hx Anesthesia: Yes Meds Allergies/Adverse Reactions: Allergies Allergy/AdvReac Type Severity Reaction Status Date / Time dy Allergy Mild ITCHING Uncoded 04/25/17 13:16 hair color dye Allergy RASH Uncoded 04/25/17 13:16 - Medications Medications: Current Medications Docusate Sodium (Colace) 100 mg PO DAILY [facility] Gemfibrozil (Lopid) 600 mg PO BID [facility] Heparin Sodium (Porcine) (Heparin) 5,000 units SC Q12 DO PRN Reason: Protocol Sodium Chloride (Sodium Chloride 0.9%) 1,000 mls @ 999 mls/hr IV .Q1H1M STA Last Admin: 06/06/17 01:33 Dose: 999 mls/hr Lactated Ringer's (Lactated Ringer's) 1,000 mls @ 200 mls/hr IV .Q5H DO Insulin Human Regular (Humulin R Med) 0 units SC Q6 DO PRN Reason: Protocol Last Admin: 06/06/17 06:28 Dose: Not Given Morphine Sulfate (Morphine) 2 mg IVP Q4H PRN PRN Reason: Pain, severe (8-10) Last Admin: 06/06/17 05:17 Dose: 2 mg Non-Formulary Medication (Lipase/Protease/Amylase [Creon Dr 36,000 Units Capsule ]) 2 each PO WM [facility] Non-Formulary Medication (Colesevelam Hcl [Welchol]) 625 mg PO BID [facility] Ondansetron HCl (Zofran Inj) 4 mg IVP Q4H PRN PRN Reason: Nausea/Vomiting Last Admin: 06/05/17 23:58 Dose: 4 mg Pantoprazole Sodium (Protonix Inj) 40 mg IVP DAILY DO Physical Exam - Constitutional Appears: Non-toxic, No Acute Distress - Head Exam Head Exam: ATRAUMATIC, NORMAL INSPECTION, NORMOCEPHALIC - ENT Exam ENT Exam: Mucous Membranes Moist, Normal Exam - Respiratory Exam Respiratory Exam: Clear to Auscultation Bilateral, NORMAL BREATHING PATTERN. absent: Rales, Rhonchi, Wheezes - Cardiovascular Exam Cardiovascular Exam: RRR, +S1, +S2 - GI/Abdominal Exam GI & Abdominal Exam: Normal Bowel Sounds, Soft, Tenderness (Diffuse, worse in epigastric region). absent: Distended, Guarding, Rebound Additional comments: Surgical scars present - Extremities Exam Extremities exam: Negative for: calf tenderness, pedal edema - Neurological Exam Neurological exam: Alert, CN II-XII Intact, Oriented x3 - Psychiatric Exam Psychiatric exam: Normal Affect, Normal Mood - Skin Skin Exam: Intact, Normal Color, Warm Results - Vital Signs Recent Vital Signs: Last Vital Signs Temp 97.5 F L 06/05/17 23:54 Pulse 58 L 06/05/17 23:54 Resp 20 06/05/17 23:54 BP 127/81 06/05/17 23:54 Pulse Ox 100 06/05/17 23:02 - Labs Result Diagrams: 06/06/17 06:54 06/06/17 00:30 Labs: Laboratory Results - last 24 hr 06/05/17 06/05/17 06/06/17 21:50 22:57 00:30 WBC RBC Hgb Hct MCV MCH MCHC RDW Plt Count MPV Gran % Lymph % (Auto) [place] % (Auto) Eos % (Auto) Baso % (Auto) Gran # Lymph # [place] # Eos # Baso # pO2 34 VBG pH 7.34 VBG pCO2 49.0 VBG HCO3 26.4 VBG Total CO2 27.9 VBG O2 Sat (Calc) 70.8 H VBG Base Excess -0.1 L VBG Potassium 5.1 Sodium 133.0 134 Chloride 102.0 101 Glucose 349 H Lactate 1.1 FiO2 21.0 Potassium 4.9 Carbon Dioxide 22 Anion Gap 16 BUN 14 Creatinine 0.5 Est GFR ( Amer) > 60 Est GFR (Non-Af Amer) > 60 POC Glucose (mg/dL) Random Glucose 277 H Calcium 8.1 L Venous Blood Potassium 5.1 Urine Color Yellow Urine Appearance Clear Urine pH 6.0 Ur Specific [place] >= 1.030 Urine Protein 30 H Urine Glucose (UA) >=1000 Urine Ketones >=80 Urine Blood Negative Urine Nitrate Negative Urine Bilirubin Negative Urine Urobilinogen 0.2 Ur Leukocyte Esterase Negative Urine RBC 0 - 2 Urine WBC 1 - 3 Ur Epithelial Cells 0 - 2 Urine Bacteria Small 06/06/17 06/06/17 06:11 06:54 WBC 6.1 D RBC 4.55 Hgb 11.4 L D Hct 33.4 L MCV 73.4 L MCH 25.1 MCHC 34.1 RDW 14.4 Plt Count 166 MPV 11.4 H Gran % 55.8 Lymph % (Auto) 35.0 [place] % (Auto) 5.9 Eos % (Auto) 2.8 Baso % (Auto) 0.5 Gran # 3.42 Lymph # 2.1 [place] # 0.4 Eos # 0.2 Baso # 0.03 pO2 VBG pH VBG pCO2 VBG HCO3 VBG Total CO2 VBG O2 Sat (Calc) VBG Base Excess VBG Potassium Sodium Chloride Glucose Lactate FiO2 Potassium Carbon Dioxide Anion Gap BUN Creatinine Est GFR ( Amer) Est GFR (Non-Af Amer) POC Glucose (mg/dL) 260 H Random Glucose Calcium Venous Blood Potassium Urine Color Urine Appearance Urine pH Ur Specific [place] Urine Protein Urine Glucose (UA) Urine Ketones Urine Blood Urine Nitrate Urine Bilirubin Urine Urobilinogen Ur Leukocyte Esterase Urine RBC Urine WBC Ur Epithelial Cells Urine Bacteria Assessment & Plan - Assessment and Plan (Free Text) Plan: 42 y/o M with PMH of Hepatitis C, Chronic pancreatitis, DM, HLD, Arthritis, and Chronic back pain presents with acute on chronic pancreatitis likely secondary to hypertriglyceridemia. Pt frequently presents with similar symptoms, although triglyceride levels are much more elevated than patients baseline. Patient will continue home medications and continue to be monitored. Plan: IVF Continue Lopid Continue pancreatic enzymes Antiemetics Pain management Will continue to monitor Denilson, PGY-2 <Jim Floyd - Last Filed: 06/06/17 16:52> Meds - Medications Medications: Current Medications Docusate Sodium (Colace) 100 mg PO DAILY [facility] Last Admin: 06/06/17 10:02 Dose: Not Given Gemfibrozil (Lopid) 600 mg PO BID [facility] Last Admin: 06/06/17 14:19 Dose: Not Given Heparin Sodium (Porcine) (Heparin) 5,000 units SC Q12 DO PRN Reason: Protocol Last Admin: 06/06/17 10:03 Dose: Not Given Sodium Chloride (Sodium Chloride 0.9%) 1,000 mls @ 999 mls/hr IV .Q1H1M STA Last Admin: 06/06/17 01:33 Dose: 999 mls/hr Lactated Ringer's (Lactated Ringer's) 1,000 mls @ 200 mls/hr IV .Q5H DO Last Admin: 06/06/17 13:15 Dose: 200 mls/hr Insulin Human Regular (Humulin R Med) 0 units SC Q6 DO PRN Reason: Protocol Last Admin: 06/06/17 15:32 Dose: Not Given Morphine Sulfate (Morphine) 2 mg IVP Q4H PRN PRN Reason: Pain, severe (8-10) Last Admin: 06/06/17 13:10 Dose: 2 mg Non-Formulary Medication (Lipase/Protease/Amylase [Creon Dr 36,000 Units Capsule ]) 2 each PO WM [facility] Last Admin: 06/06/17 14:19 Dose: Not Given Colesevelam Hcl [ Welchol] 625 Mg ( Home Med) 625 mg PO BID [facility] Last Admin: 06/06/17 13:14 Dose: Not Given Ondansetron HCl (Zofran Inj) 4 mg IVP Q4H PRN PRN Reason: Nausea/Vomiting Last Admin: 06/06/17 09:15 Dose: 4 mg Pantoprazole Sodium (Protonix Inj) 40 mg IVP DAILY [facility] Last Admin: 06/06/17 11:07 Dose: 40 mg Results - Vital Signs Recent Vital Signs: Last Vital Signs Temp 98.1 F 06/06/17 08:00 Pulse 54 L 06/06/17 16:24 Resp 20 06/06/17 16:24 BP 119/68 06/06/17 16:24 Pulse Ox 100 06/06/17 16:24 - Labs Result Diagrams: 06/06/17 06:54 06/06/17 06:54 Labs: Laboratory Results - last 24 hr 06/05/17 06/05/17 06/06/17 21:50 22:57 00:30 WBC RBC Hgb Hct MCV MCH MCHC RDW Plt Count MPV Gran % Lymph % (Auto) [place] % (Auto) Eos % (Auto) Baso % (Auto) Gran # Lymph # [place] # Eos # Baso # pO2 34 VBG pH 7.34 VBG pCO2 49.0 VBG HCO3 26.4 VBG Total CO2 27.9 VBG O2 Sat (Calc) 70.8 H VBG Base Excess -0.1 L VBG Potassium 5.1 Sodium 133.0 134 Chloride 102.0 101 Glucose 349 H Lactate 1.1 FiO2 21.0 Potassium 4.9 Carbon Dioxide 22 Anion Gap 16 BUN 14 Creatinine 0.5 Est GFR ( Amer) > 60 Est GFR (Non-Af Amer) > 60 POC Glucose (mg/dL) Random Glucose 277 H Calcium 8.1 L Phosphorus Magnesium Total Bilirubin AST ALT Alkaline Phosphatase Total Protein Albumin Globulin Albumin/Globulin Ratio Triglycerides Cholesterol LDL Cholesterol Direct HDL Cholesterol Venous Blood Potassium 5.1 Urine Color Yellow Urine Appearance Clear Urine pH 6.0 Ur Specific [place] >= 1.030 Urine Protein 30 H Urine Glucose (UA) >=1000 Urine Ketones >=80 Urine Blood Negative Urine Nitrate Negative Urine Bilirubin Negative Urine Urobilinogen 0.2 Ur Leukocyte Esterase Negative Urine RBC 0 - 2 Urine WBC 1 - 3 Ur Epithelial Cells 0 - 2 Urine Bacteria Small 06/06/17 06/06/17 06/06/17 06:11 06:54 06:54 WBC 6.1 D RBC 4.55 Hgb 11.4 L D Hct 33.4 L MCV 73.4 L MCH 25.1 MCHC 34.1 RDW 14.4 Plt Count 166 MPV 11.4 H Gran % 55.8 Lymph % (Auto) 35.0 [place] % (Auto) 5.9 Eos % (Auto) 2.8 Baso % (Auto) 0.5 Gran # 3.42 Lymph # 2.1 [place] # 0.4 Eos # 0.2 Baso # 0.03 pO2 VBG pH VBG pCO2 VBG HCO3 VBG Total CO2 VBG O2 Sat (Calc) VBG Base Excess VBG Potassium Sodium 137 Chloride 106 Glucose Lactate FiO2 Potassium 4.1 Carbon Dioxide 23 Anion Gap 12 BUN 12 Creatinine 0.5 Est GFR ( Amer) > 60 Est GFR (Non-Af Amer) > 60 POC Glucose (mg/dL) 260 H Random Glucose 237 H Calcium 7.7 L Phosphorus 3.2 Magnesium 1.6 L Total Bilirubin 0.6 AST 19 ALT 28 Alkaline Phosphatase 67 Total Protein 6.2 Albumin 3.1 Globulin 3.1 Albumin/Globulin Ratio 1.0 L Triglycerides 816 H Cholesterol 137 LDL Cholesterol Direct < 30 HDL Cholesterol 14 L Venous Blood Potassium Urine Color Urine Appearance Urine pH Ur Specific [place] Urine Protein Urine Glucose (UA) Urine Ketones Urine Blood Urine Nitrate Urine Bilirubin Urine Urobilinogen Ur Leukocyte Esterase Urine RBC Urine WBC Ur Epithelial Cells Urine Bacteria 06/06/17 06/06/17 15:00 16:22 WBC RBC Hgb Hct MCV MCH MCHC RDW Plt Count MPV Gran % Lymph % (Auto) [place] % (Auto) Eos % (Auto) Baso % (Auto) Gran # Lymph # [place] # Eos # Baso # pO2 VBG pH VBG pCO2 VBG HCO3 VBG Total CO2 VBG O2 Sat (Calc) VBG Base Excess VBG Potassium Sodium Chloride Glucose Lactate FiO2 Potassium Carbon Dioxide Anion Gap BUN Creatinine Est GFR ( Amer) Est GFR (Non-Af Amer) POC Glucose (mg/dL) 248 H Random Glucose Calcium Phosphorus Magnesium Total Bilirubin AST ALT Alkaline Phosphatase Total Protein Albumin Globulin Albumin/Globulin Ratio Triglycerides 551 H Cholesterol LDL Cholesterol Direct HDL Cholesterol Venous Blood Potassium Urine Color Urine Appearance Urine pH Ur Specific [place] Urine Protein Urine Glucose (UA) Urine Ketones Urine Blood Urine Nitrate Urine Bilirubin Urine Urobilinogen Ur Leukocyte Esterase Urine RBC Urine WBC Ur Epithelial Cells Urine Bacteria Attending/Attestation - Attestation I have personally seen and examined this patient.: Yes I have fully participated in the care of the patient.: Yes I have reviewed all pertinent clinical information: Yes Notes (Text): 06/06/17 16:50 42 year old male with h/o chronic pancreatitis, DM, HLD, hep C admitted with abdominal pain. 1. Chronic pancreatitis Plan: -continue supportive measures -pain control / iv hydration -bowel rest until pain improved -treatment for high triglycerides -no intervention required at this time
[2017-06-06 07:59] LABS: ALKALINE PHOSPHATASE 67 U/L (38-126); ALT/SGPT 28 U/L (7-56); AST/SGOT 19 U/L (17-59); BILIRUBIN,TOTAL 0.6 mg/dL (0.2-1.3); BLOOD UREA NITROGEN 12 mg/dL (7-21); CALCIUM 7.7 mg/dL (8.4-10.5); CARBON DIOXIDE 23 mmol/L (21-33); CHLORIDE 106 mmol/L (98-107); CHOLESTEROL 137 mg/dL (130-200); GFR AFRICAN-AMERICAN > 60; GLUCOSE,RANDOM 237 mg/dL (70-110); MAGNESIUM 1.6 mg/dL (1.7-2.2); PHOSPHOROUS 3.2 mg/dL (2.5-4.5); POTASSIUM 4.1 mmol/L (3.6-5.0); SODIUM 137 mmol/L (132-148); TOTAL PROTEIN 6.2 g/dL (5.8-8.3)
[2017-06-06] MEDS: LIPASE PO SCH ×3 (10:04→18:56)
[2017-06-06] MEDS: [UNRECOGNIZED DRUG - OTHER] PO SCH ×3 (10:04→18:56)
[2017-06-06] MEDS: PROTEASE PO SCH ×3 (10:04→18:56)
[2017-06-06] MEDS: AMYLASE PO SCH ×3 (10:04→18:56)
[2017-06-06] MEDS: Colesevelam Hcl [Welchol] 625 MG (HOME MED) PO SCH ×2 (13:14→18:55)
[2017-06-06] MEDS: Lactated Ringer's 1,000 ML IV SCH ×2 (13:15→21:25)
--- NOTE | 2017-06-06 22:58 | CARD ---
APPROVED REPORT EKG Measurement Heart [id number] <Conclusion> Sinus bradycardia Left axis deviation Abnormal ECG
[2017-06-07] MEDS: Morphine 2 mg/ml ISec IVP PRN ×4 (02:14→21:09)
[2017-06-07] MEDS: Lactated Ringer's 1,000 ML IV SCH ×2 (02:15→07:57)
[2017-06-07 07:00] LABS: BASO # 0.05 K/mm3 (0.0-2.0); BASO % 1.1 % (0.0-3.0); EOS # 0.2 (0.0-0.7); EOS % 4.1 % (1.5-5.0); GRAN # 2.67 (1.4-6.5); GRAN % 57.3 % (50.0-68.0); HEMATOCRIT 32.7 % (42.0-52.0); LYMPH # 1.5 (1.2-3.4); LYMPH % 32.8 % (22.0-35.0); MEAN CORPUSCULAR HEMOGLOBIN 24.9 pg (25.0-35.0); MEAN CORPUSCULAR HGB CONC 33.6 g/dl (31.0-37.0); MEAN PLATELET VOLUME 11.2 fl (7.0-11.0); MONO # 0.2 (0.1-0.6); MONO % 4.7 % (1.0-6.0); RED CELL DISTRIBUTION WIDTH 14.6 % (11.5-14.5); WHITE BLOOD COUNT 4.7 10^3/ul (4.5-11.0)
[2017-06-07 07:03] LABS: ALB/GLOB RATIO 1.1 (1.1-1.8); ALKALINE PHOSPHATASE 60 U/L (38-126); ALT/SGPT 28 U/L (7-56); AST/SGOT 16 U/L (17-59); BILIRUBIN,TOTAL 0.7 mg/dL (0.2-1.3); BLOOD UREA NITROGEN 7 mg/dL (7-21); CALCIUM 8.1 mg/dL (8.4-10.5); CARBON DIOXIDE 27 mmol/L (21-33); CHLORIDE 103 mmol/L (98-107); GFR AFRICAN-AMERICAN > 60; GLUCOSE,RANDOM 196 mg/dL (70-110); MAGNESIUM 1.6 mg/dL (1.7-2.2); PHOSPHOROUS 3.2 mg/dL (2.5-4.5); POTASSIUM 3.9 mmol/L (3.6-5.0); SODIUM 137 mmol/L (132-148); TOTAL PROTEIN 5.8 g/dL (5.8-8.3)
--- NOTE | 2017-06-07 07:44 | CP.PCM.PN ---
<Cesario Oreilly - Last Filed: 06/07/17 10:51> Subjective - Date & Time of Evaluation Date of Evaluation: 06/07/17 Time of Evaluation: 07:39 - Subjective Subjective: GI Progress Note Pt seen and examined at bedside. Pt doing well overnight with no acute complaints. Pt has decreased nausea from previous day and pain has improved. Otherwise, no acute complaints. 12 point ROS performed, negative unless otherwise stated. Objective - Vital Signs/Intake and Output Vital Signs (last 24 hours): Temp Pulse Resp BP Pulse Ox 97.5 F L 54 L 20 110/59 L 98 06/07/17 00:00 06/07/17 00:00 06/07/17 00:00 06/07/17 00:00 06/07/17 00:00 Intake and Output: 06/07/17 06/07/17 06:59 18:59 Intake Total 4800 Balance 4800 - Medications Medications: Current Medications Docusate Sodium (Colace) [address] [facility] Last Admin: 06/06/17 10:02 Dose: Not Given Gemfibrozil (Lopid) [address] [facility] Last Admin: 06/06/17 18:56 Dose: Not Given Heparin Sodium (Porcine) (Heparin) 5,000 units SC Q12 DO PRN Reason: Protocol Last Admin: 06/06/17 21:24 Dose: 5,000 units Sodium Chloride (Sodium Chloride 0.9%) 1,000 mls @ 999 mls/hr IV .Q1H1M [facility] Last Admin: 06/06/17 01:33 Dose: 999 mls/hr Lactated Ringer's (Lactated Ringer's) 1,000 mls @ 200 mls/hr IV .Q5H DO Last Admin: 06/07/17 02:15 Dose: 200 mls/hr Insulin Human Regular (Humulin R Med) 0 units SC Q6 DO PRN Reason: Protocol Last Admin: 06/06/17 18:55 Dose: Not Given Morphine Sulfate (Morphine) 2 mg IVP Q4H PRN PRN Reason: Pain, severe (8-10) Last Admin: 06/07/17 02:14 Dose: 2 mg Non-Formulary Medication (Lipase/Protease/Amylase [Kiel Dr 36,000 Units Capsule ]) [address] [facility] Last Admin: 06/06/17 18:56 Dose: Not Given Colesevelam Hcl [ Welchol] 625 Mg ( Home Med) [address] [facility] Last Admin: 06/06/17 18:55 Dose: Not Given Ondansetron HCl (Zofran Inj) 4 mg IVP Q4H PRN PRN Reason: Nausea/Vomiting Last Admin: 06/07/17 02:14 Dose: 4 mg Pantoprazole Sodium (Protonix Inj) [address] [facility] Last Admin: 06/06/17 11:07 Dose: 40 mg - Labs Labs: 06/07/17 06:30 06/07/17 06:30 - Constitutional Appears: Non-toxic, No Acute Distress - Head Exam Head Exam: ATRAUMATIC, NORMAL INSPECTION, NORMOCEPHALIC - ENT Exam ENT Exam: Mucous Membranes Moist - Respiratory Exam Respiratory Exam: Clear to Ausculation Bilateral, NORMAL BREATHING PATTERN. absent: Rales, Rhonchi, Wheezes - Cardiovascular Exam Cardiovascular Exam: RRR, +S1, +S2 - GI/Abdominal Exam GI & Abdominal Exam: Soft, Tenderness (Epigastric ), Normal Bowel Sounds. absent: Distended, Guarding, Rebound - Extremities Exam Extremities Exam: absent: Calf Tenderness, Pedal Edema - Neurological Exam Neurological Exam: Alert, Awake, Oriented x3 - Psychiatric Exam Psychiatric exam: Normal Affect, Normal Mood - Skin Skin Exam: Intact, Normal Color, Warm Assessment and Plan - Assessment and Plan (Free Text) Plan: 42 y/o M with PMH of Hepatitis C, Chronic pancreatitis, DM, HLD, Arthritis, and Chronic back pain presents chronic pancreatitis. Pt frequently presents with similar symptoms, although triglyceride levels are much more elevated than patients baseline, but have now come down to baseline. Pt encouraged to have pancreatic enzymes with every meal. Pt is clear from GI perspective, will sign off at this time. Plan: Will advance to lowfat/low cholesterol diet Consider Toradol for pain Continue Lopid Continue pancreatic enzymes with every meal, including snacks Continue Antiemetics as needed Follow up with pt's GI doctor as an outpatient [place], PGY-2 <Franck Jiménez MD - Last Filed: 06/07/17 20:58> Objective - Vital Signs/Intake and Output Vital Signs (last 24 hours): Temp Pulse Resp BP Pulse Ox 98.1 F 58 L 20 125/75 100 06/07/17 16:00 06/07/17 16:00 06/07/17 16:00 06/07/17 16:00 06/07/17 16:00 Intake and Output: 06/07/17 06/08/17 18:59 06:59 Intake Total 500 Balance 500 - Medications Medications: Current Medications Docusate Sodium (Colace) [address] [facility] Last Admin: 06/07/17 11:16 Dose: 100 mg Gemfibrozil (Lopid) [address] [facility] Last Admin: 06/07/17 17:01 Dose: 600 mg Heparin Sodium (Porcine) (Heparin) 5,[address] [facility] PRN Reason: Protocol Last Admin: 06/07/17 11:17 Dose: 5,000 units Sodium Chloride (Sodium Chloride 0.9%) 1,000 mls @ 150 mls/hr IV .Q6H40M [facility] Last Admin: 06/07/17 17:01 Dose: 150 mls/hr Insulin Detemir (Levemir) [address] [facility] Insulin Human Lispro (Humalog Med) [address] [facility] PRN Reason: Protocol Morphine Sulfate (Morphine) 2 mg IVP Q4H PRN PRN Reason: Pain, severe (8-10) Last Admin: 06/07/17 15:15 Dose: 2 mg Non-Formulary Medication (Lipase/Protease/Amylase [Creon Dr 36,000 Units Capsule ]) [address] [facility] Last Admin: 06/07/17 17:01 Dose: 2 each Colesevelam Hcl [ Welchol] 625 Mg ( Home Med) [address] [facility] Last Admin: 06/07/17 17:00 Dose: Not Given Ondansetron HCl (Zofran Inj) 4 mg IVP Q4H PRN PRN Reason: Nausea/Vomiting Last Admin: 06/07/17 15:16 Dose: 4 mg Pantoprazole Sodium (Protonix Inj) [address] [facility] Last Admin: 06/07/17 11:21 Dose: 40 mg Attending/Attestation - Attestation I have personally seen and examined this patient.: Yes I have fully participated in the care of the patient.: Yes I have reviewed all pertinent clinical information, including history, physical exam and plan: Yes Notes (Text): 06/07/17 20:56 Patient seen with GI fellow and resident on rounds. This is a 42 y/o M with PMH of Hepatitis C, Chronic pancreatitis, DM, HLD, Arthritis, and Chronic back pain in setting of chronic pancreatitis. Frequent admissions with similar symptoms with poor outpatient follow up and non compliance with medications. Pt encouraged to have pancreatic enzymes with every meal. Pt is clear from GI perspective, will sign off at this time. Low fat/ low cholesterol diet. Follow up with primary GI as outpatient
[2017-06-07] MEDS: LIPASE PO SCH ×3 (08:50→17:01)
[2017-06-07] MEDS: AMYLASE PO SCH ×3 (08:50→17:01)
[2017-06-07] MEDS: [UNRECOGNIZED DRUG - OTHER] PO SCH ×3 (08:50→17:01)
[2017-06-07] MEDS: PROTEASE PO SCH ×3 (08:50→17:01)
[2017-06-07] MEDS ORDERED: Lactated Ringer's 1,000 ML IV SCH (10:45)
[2017-06-07] MEDS: Colesevelam Hcl [Welchol] 625 MG (HOME MED) PO SCH ×2 (11:11→17:00)
--- NOTE | 2017-06-07 11:19 | CP.PCM.PN ---
<Cholo Drew - Last Filed: 06/07/17 12:54> Subjective - Date & Time of Evaluation Date of Evaluation: 06/07/17 Time of Evaluation: 07:16 - Subjective Subjective: Patient was seen and examined at bedside. Per nursing there were no acute events overnight. The patient reports an improvement in pain from yesterday and rates it a 8/10 in severity. The patient denies chest pain, changes in vision, headaches, lightheaded, dizziness, ear pain, numbness in hands or feet, or any other complaints. Objective - Vital Signs/Intake and Output Vital Signs (last 24 hours): Temp Pulse Resp BP Pulse Ox 97.8 F 52 L 20 116/54 L 97 06/07/17 08:19 06/07/17 08:19 06/07/17 08:19 06/07/17 08:19 06/07/17 08:19 - Medications Medications: Current Medications Docusate Sodium (Colace) 100 mg PO DAILY [facility] Last Admin: 06/06/17 10:02 Dose: Not Given Gemfibrozil (Lopid) 600 mg PO BID [facility] Last Admin: 06/06/17 18:56 Dose: Not Given Heparin Sodium (Porcine) (Heparin) 5,000 units SC Q12 [facility] PRN Reason: Protocol Last Admin: 06/06/17 21:24 Dose: 5,000 units Sodium Chloride (Sodium Chloride 0.9%) 1,000 mls @ 999 mls/hr IV .Q1H1M [facility] Last Admin: 06/06/17 01:33 Dose: 999 mls/hr Lactated Ringer's (Lactated Ringer's) 1,000 mls @ 150 mls/hr IV .Q6H40M [facility] Insulin Human Regular (Humulin R Med) 0 units SC Q6 [facility] PRN Reason: Protocol Last Admin: 06/06/17 18:55 Dose: Not Given Morphine Sulfate (Morphine) 2 mg IVP Q4H PRN PRN Reason: Pain, severe (8-10) Last Admin: 06/07/17 08:54 Dose: 2 mg Non-Formulary Medication (Lipase/Protease/Amylase [Creon Dr 36,000 Units Capsule ]) 2 each PO WM [facility] Last Admin: 06/07/17 08:50 Dose: Not Given Colesevelam Hcl [ Welchol] 625 Mg ( Home Med) 625 mg PO BID [facility] Last Admin: 06/06/17 18:55 Dose: Not Given Ondansetron HCl (Zofran Inj) 4 mg IVP Q4H PRN PRN Reason: Nausea/Vomiting Last Admin: 06/07/17 08:54 Dose: 4 mg Pantoprazole Sodium (Protonix Inj) 40 mg IVP DAILY [facility] Last Admin: 06/06/17 11:07 Dose: 40 mg - Head Exam Head Exam: ATRAUMATIC, NORMAL INSPECTION, NORMOCEPHALIC - Eye Exam Eye Exam: EOMI, Normal appearance, PERRL Pupil Exam: NORMAL ACCOMODATION, PERRL. absent: Irregular - ENT Exam ENT Exam: Mucous Membranes Moist - Neck Exam Neck Exam: Normal Inspection - Respiratory Exam Respiratory Exam: Clear to Ausculation Bilateral, NORMAL BREATHING PATTERN. absent: Rales, Rhonchi - Cardiovascular Exam Cardiovascular Exam: REGULAR RHYTHM, +S1, +S2 - GI/Abdominal Exam GI & Abdominal Exam: Guarding, Tenderness, Normal Bowel Sounds - Extremities Exam Extremities Exam: Full ROM - Back Exam Back Exam: NORMAL INSPECTION. absent: paraspinal tenderness - Psychiatric Exam Psychiatric exam: Normal Affect, Normal Mood - Skin Skin Exam: Dry, Intact Assessment and Plan - Assessment and Plan (Free Text) Assessment: 42 year old male with a past medical history of Hep C, Arthritis, chronic pancreatitis with insufficiency, pancreatic cysts, DM, hypertriglyceridemia, who presented to the ED with complaints of N/V/D and abdominal pain that started today. Plan: 1. Acute on Chronic Abdominal Pain, with Vomiting and Diarrhea -likely 2/2 acute on chronic pancreatitis vs SBO vs gastritis -Patient reports flatulence, and exam does not indicate acute abdomen, so less likely to have SBO -Patient has not been taking PO meds, including pancreatic enzyme supplements, which likely precipitated this episode -GI rec's appreciated. -Continue morphine 2mg q4h for pain control -Continue IVF hydration NS@150cc/hr (after 3L NS bolus) -Continue zofran prn for n/v -Clear liquid diet started. Will advance as tolerated. 2. HONK; h/o DM -Patient presented with BG 360, with elevated anion gap and ketonuria, but no acidosis. BG improved to 277, and AG closed after 2L NS bolus, so less likely DKA, not requiring insulin drip -Blood glucose 196 today. -Continue Regular sliding scale insulin -Continue Fingersticks q6h 3. Hypertriglyceridemia -Patient presented with TG 2050, HDL 14. Hypertriglyceridemia may have precipitated acute pancreatitis. Triglycerides continue to trend down. -Continue aggressive IVF hydration 551-->353 currently. GI rec's appreciated. -Continue pancreatic enzyme replacements. GI ppx -Continue Protonix DVT ppx -Continue SCD's <Cameron Schroeder MD - Last Filed: 06/08/17 15:01> Objective - Vital Signs/Intake and Output Vital Signs (last 24 hours): Temp Pulse Resp BP Pulse Ox 98.5 F 66 20 123/59 L 95 06/08/17 07:30 06/08/17 07:30 06/08/17 07:30 06/08/17 07:30 06/08/17 07:30 Intake and Output: 06/08/17 06/08/17 06:59 18:59 Intake Total 4580 960 Balance 4580 960 - Medications Medications: Current Medications Docusate Sodium (Colace) 100 mg PO DAILY [facility] Last Admin: 06/08/17 09:38 Dose: Not Given Gemfibrozil (Lopid) 600 mg PO BID [facility] Last Admin: 06/08/17 09:38 Dose: 600 mg Heparin Sodium (Porcine) (Heparin) 5,000 units SC Q12 [facility] PRN Reason: Protocol Last Admin: 06/08/17 09:40 Dose: 5,000 units Sodium Chloride (Sodium Chloride 0.9%) 1,000 mls @ 150 mls/hr IV .Q6H40M [facility] Last Admin: 06/08/17 08:00 Dose: 150 mls/hr Insulin Detemir (Levemir) 16 unit SC DAILY [facility] Last Admin: 06/08/17 09:37 Dose: 16 unit Insulin Human Lispro (Humalog Med) 0 units SC ACHS [facility] PRN Reason: Protocol Last Admin: 06/08/17 11:37 Dose: Not Given Morphine Sulfate (Morphine) 2 mg IVP Q4H PRN PRN Reason: Pain, severe (8-10) Last Admin: 06/08/17 09:44 Dose: 2 mg Non-Formulary Medication (Lipase/Protease/Amylase [Kiel Leal 36,000 Units Capsule ]) 2 each PO [facility] Last Admin: 06/08/17 12:38 Dose: Not Given Colesevelam Hcl [ Welchol] 625 Mg ( Home Med) 625 mg PO BID [facility] Last Admin: 06/08/17 10:42 Dose: Not Given Ondansetron HCl (Zofran Inj) 4 mg IVP Q4H PRN PRN Reason: Nausea/Vomiting Last Admin: 06/08/17 09:44 Dose: 4 mg Pantoprazole Sodium (Protonix Inj) 40 mg IVP DAILY [facility] Last Admin: 06/08/17 09:40 Dose: 40 mg - Labs Labs: 06/08/17 07:15 06/08/17 07:15 Attending/Attestation - Attestation I have personally seen and examined this patient.: Yes I have fully participated in the care of the patient.: Yes I have reviewed all pertinent clinical information, including history, physical exam and plan: Yes Notes (Text): 06/08/17 14:59 Patient was seen and examined with medical appointment scheduler. Agreed with resident assessment and plan. 42 y/o M with PMH of Hepatitis C, Chronic pancreatitis, DM, HLD, Arthritis, and Chronic back pain presents with acute on chronic pancreatitis, Triglyceride level was very high at the time of admission but has come down with Just IV hydration, no need for Insulin drip at this time.Pain is better, will start on clear liquid diet and will advance gradually. Management plan was discussed in detail with patient Education was provided.
[2017-06-07] MEDS: Insulin Reg-MEDIUM-Coverage SC SCH ×2 (11:30→18:06)
[2017-06-07] MEDS: Sodium Chloride 0.9% 1,000 ML IV SCH (17:01)
[2017-06-07 19:00] LABS: PH,URINE 7.5 (4.7-8.0); URINE APPEARANCE CLEAR (CLEAR); URINE BILIRUBIN NEGATIVE (NEGATIVE); URINE BLOOD NEGATIVE (NEGATIVE); URINE COLOR YELLOW (YELLOW); URINE GLUCOSE (UA) >=1000 mg/dL (NEGATIVE); URINE KETONE NEGATIVE (NEGATIVE); URINE LEUKOCYTE ESTERASE NEGATIVE Leu/uL (NEGATIVE); URINE PROTEIN NEGATIVE mg/dL (<30 mg/dL); URINE UROBILINOGEN 0.2 E.U./dL (<1 E.U./dL)
[2017-06-07] MEDS ORDERED: Insulin Lispro 1 UNITS/0.01 ML SC ONE (20:13)
[2017-06-07] MEDS ORDERED: Insulin Lispro (HUMAlog) HIGH Coverage SC SCH (22:00)
[2017-06-07] MEDS: Insulin Lispro (humaLOG) MEDIUM Coverage SC SCH (22:30)
[2017-06-08] MEDS: Sodium Chloride 0.9% 1,000 ML IV SCH ×3 (01:05→16:34)
[2017-06-08] MEDS: Morphine 2 mg/ml ISec IVP PRN ×4 (03:37→21:10)
[2017-06-08 07:21] LABS: BASO # 0.02 K/mm3 (0.0-2.0); BASO % 0.5 % (0.0-3.0); EOS # 0.1 (0.0-0.7); EOS % 2.5 % (1.5-5.0); GRAN # 2.77 (1.4-6.5); GRAN % 62.7 % (50.0-68.0); HEMATOCRIT 32.9 % (42.0-52.0); LYMPH # 1.1 (1.2-3.4); LYMPH % 25.9 % (22.0-35.0); MEAN CELL VOLUME 74.3 fl (80.0-105.0); MEAN CORPUSCULAR HEMOGLOBIN 24.8 pg (25.0-35.0); MEAN CORPUSCULAR HGB CONC 33.4 g/dl (31.0-37.0); MEAN PLATELET VOLUME 11.5 fl (7.0-11.0); MONO # 0.4 (0.1-0.6); MONO % 8.4 % (1.0-6.0); RED CELL DISTRIBUTION WIDTH 14.5 % (11.5-14.5); WHITE BLOOD COUNT 4.4 10^3/ul (4.5-11.0)
[2017-06-08 07:38] LABS: ALB/GLOB RATIO 1.1 (1.1-1.8); ALKALINE PHOSPHATASE 67 U/L (38-126); ALT/SGPT 29 U/L (7-56); AST/SGOT 15 U/L (17-59); BILIRUBIN,TOTAL 0.8 mg/dL (0.2-1.3); BLOOD UREA NITROGEN 5 mg/dL (7-21); CALCIUM 8.3 mg/dL (8.4-10.5); CARBON DIOXIDE 26 mmol/L (21-33); CHLORIDE 104 mmol/L (98-107); GFR AFRICAN-AMERICAN > 60; GLUCOSE,RANDOM 258 mg/dL (70-110); SODIUM 137 mmol/L (132-148)
[2017-06-08] MEDS: Insulin Lispro (humaLOG) MEDIUM Coverage SC SCH ×4 (07:42→21:19)
[2017-06-08] MEDS: Insulin Detemir 100 units/ml Vial (Levemir) SC SCH (09:37)
[2017-06-08] MEDS: LIPASE PO SCH ×4 (09:39→20:45)
[2017-06-08] MEDS: PROTEASE PO SCH ×4 (09:39→20:45)
[2017-06-08] MEDS: AMYLASE PO SCH ×4 (09:39→20:45)
[2017-06-08] MEDS: [UNRECOGNIZED DRUG - OTHER] PO SCH ×4 (09:39→20:45)
[2017-06-08] MEDS: Colesevelam Hcl [Welchol] 625 MG (HOME MED) PO SCH (10:42)
--- NOTE | 2017-06-08 15:27 | CP.PCM.PN ---
<RajendraScarlettn - Last Filed: 06/08/17 15:29> Subjective - Date & Time of Evaluation Date of Evaluation: 06/08/17 Time of Evaluation: 09:25 - Subjective Subjective: Patient was seen and examined at bedside this morning. The patient reports worse abdominal pain today and rates its a 10/10 in severity. The patient is also reporting right sided rib pain today. The patient denies a bowel movement since yesterday. The patient reports no problems with the liquid diet at this time. The patient denies chest pain, lightheaded, dizziness, numbness and tingling in extremities, changes in vision, palpitations, or any other complaints. Objective - Vital Signs/Intake and Output Vital Signs (last 24 hours): Temp Pulse Resp BP Pulse Ox 98.5 F 66 20 123/59 L 95 06/08/17 07:30 06/08/17 07:30 06/08/17 07:30 06/08/17 07:30 06/08/17 07:30 Intake and Output: 06/08/17 06/08/17 06:59 18:59 Intake Total 4580 960 Balance 4580 960 - Medications Medications: Current Medications Docusate Sodium (Colace) 100 mg PO DAILY [facility] Last Admin: 06/08/17 09:38 Dose: Not Given Gemfibrozil (Lopid) 600 mg PO BID [facility] Last Admin: 06/08/17 09:38 Dose: 600 mg Heparin Sodium (Porcine) (Heparin) 5,000 units SC Q12 DO PRN Reason: Protocol Last Admin: 06/08/17 09:40 Dose: 5,000 units Sodium Chloride (Sodium Chloride 0.9%) 1,000 mls @ 150 mls/hr IV .Q6H40M [facility] Last Admin: 06/08/17 08:00 Dose: 150 mls/hr Insulin Detemir (Levemir) 16 unit SC DAILY [facility] Last Admin: 06/08/17 09:37 Dose: 16 unit Insulin Human Lispro (Humalog Med) 0 units SC ACHS [facility] PRN Reason: Protocol Last Admin: 06/08/17 11:37 Dose: Not Given Morphine Sulfate (Morphine) 2 mg IVP Q4H PRN PRN Reason: Pain, severe (8-10) Last Admin: 06/08/17 09:44 Dose: 2 mg Non-Formulary Medication (Lipase/Protease/Amylase [Kiel Leal 36,000 Units Capsule ]) 2 each PO WM [facility] Last Admin: 06/08/17 12:38 Dose: Not Given Colesevelam Hcl [ Welchol] 625 Mg ( Home Med) 625 mg PO BID [facility] Last Admin: 06/08/17 10:42 Dose: Not Given Ondansetron HCl (Zofran Inj) 4 mg IVP Q4H PRN PRN Reason: Nausea/Vomiting Last Admin: 06/08/17 09:44 Dose: 4 mg Pantoprazole Sodium (Protonix Inj) 40 mg IVP DAILY [facility] Last Admin: 06/08/17 09:40 Dose: 40 mg - Labs Labs: 06/08/17 07:15 06/08/17 07:15 - Head Exam Head Exam: NORMAL INSPECTION, NORMOCEPHALIC - Eye Exam Eye Exam: EOMI, Normal appearance, PERRL. absent: Periorbital tenderness Pupil Exam: NORMAL ACCOMODATION - ENT Exam ENT Exam: Mucous Membranes Moist - Neck Exam Additional comments: Right tender cervical lymph node. - Respiratory Exam Respiratory Exam: Clear to Ausculation Bilateral, NORMAL BREATHING PATTERN. absent: Chest Wall Tenderness, Respiratory Distress - Cardiovascular Exam Cardiovascular Exam: REGULAR RHYTHM, RRR, +S1, +S2. absent: Rubs - GI/Abdominal Exam GI & Abdominal Exam: Guarding, Tenderness, Normal Bowel Sounds - Extremities Exam Extremities Exam: Full ROM - Back Exam Back Exam: NORMAL INSPECTION. absent: paraspinal tenderness - Neurological Exam Neurological Exam: Alert, Awake, Oriented x3 - Psychiatric Exam Psychiatric exam: Normal Affect, Normal Mood - Skin Skin Exam: Dry, Intact Assessment and Plan - Assessment and Plan (Free Text) Assessment: 42 year old male with a past medical history of Hep C, Arthritis, chronic pancreatitis with insufficiency, pancreatic cysts, DM, hypertriglyceridemia, who presented to the ED with complaints of N/V/D and abdominal pain that started today. Plan: 1. Acute on Chronic Abdominal Pain, with Vomiting and Diarrhea -likely 2/2 acute on chronic pancreatitis vs SBO vs gastritis -Patient reports flatulence, and exam does not indicate acute abdomen, so less likely to have SBO -Patient has not been taking PO meds, including pancreatic enzyme supplements, which likely precipitated this episode -GI rec's appreciated. -Continue morphine 2mg q4h for pain control -Continue IVF hydration NS@150cc/hr (after 3L NS bolus) -Continue zofran prn for n/v -Clear liquid diet started tolerated. Soft Diabetic diet started. Will advance as tolerated. 2. HONK; h/o DM -Patient presented with BG 360, with elevated anion gap and ketonuria, but no acidosis. BG improved to 277, and AG closed after 2L NS bolus, so less likely DKA, not requiring insulin drip -Blood glucose 207 today. -Continue Regular sliding scale insulin -Continue Fingersticks q6h 3. Hypertriglyceridemia -Patient presented with TG 2050, HDL 14. Hypertriglyceridemia may have precipitated acute pancreatitis. Triglycerides continue to trend down. -Continue aggressive IVF hydration 551-->353 currently. -GI rec's appreciated. -Continue pancreatic enzyme replacements. GI ppx -Continue Protonix DVT ppx -Continue SCD's <Elda ESPINOZA,Camerno - Last Filed: 06/09/17 14:56> Objective - Vital Signs/Intake and Output Vital Signs (last 24 hours): Temp Pulse Resp BP Pulse Ox 98.3 F 61 18 114/76 100 06/09/17 07:30 06/09/17 07:30 06/09/17 07:30 06/09/17 07:30 06/09/17 07:30 Intake and Output: 06/09/17 06/09/17 06:59 18:59 Intake Total 780 600 Balance 780 600 - Medications Medications: Current Medications Docusate Sodium (Colace) 100 mg PO DAILY [facility] Last Admin: 06/09/17 10:54 Dose: 100 mg Gemfibrozil (Lopid) 600 mg PO BID [facility] Last Admin: 06/09/17 10:50 Dose: 600 mg Heparin Sodium (Porcine) (Heparin) 5,000 units SC Q12 DO PRN Reason: Protocol Last Admin: 06/09/17 10:49 Dose: 5,000 units Sodium Chloride (Sodium Chloride 0.9%) 1,000 mls @ 80 mls/hr IV .[id number] [facility] Insulin Detemir (Levemir) 16 unit SC DAILY [facility] Last Admin: 06/09/17 10:51 Dose: 16 unit Insulin Human Lispro (Humalog Med) 0 units SC ACHS [facility] PRN Reason: Protocol Last Admin: 06/09/17 12:11 Dose: 5 units Morphine Sulfate (Morphine) 2 mg IVP Q4H PRN PRN Reason: Pain, severe (8-10) Last Admin: 06/09/17 10:46 Dose: 2 mg Non-Formulary Medication (Lipase/Protease/Amylase [Creon Dr 36,000 Units Capsule ]) 2 each PO WM [facility] Last Admin: 06/09/17 12:11 Dose: 2 each Colesevelam Hcl [ Welchol] 625 Mg ( Home Med) 625 mg PO BID [facility] Last Admin: 06/09/17 10:51 Dose: Not Given Ondansetron HCl (Zofran Inj) 4 mg IVP Q4H PRN PRN Reason: Nausea/Vomiting Last Admin: 06/09/17 10:47 Dose: 4 mg Pantoprazole Sodium (Protonix Inj) 40 mg IVP DAILY [facility] Last Admin: 06/09/17 10:48 Dose: 40 mg - Labs Labs: 06/09/17 06:51 06/09/17 06:51 Attending/Attestation - Attestation I have fully participated in the care of the patient.: Yes I have reviewed all pertinent clinical information, including history, physical exam and plan: Yes Notes (Text): 06/09/17 14:53 Patient was seen and examined with medical billing service. Agreed with resident assessment and plan. 42 yrs M with PMH of Hepatitis C, Chronic pancreatitis, DM, HLD, Arthritis, and Chronic back pain presents with acute on chronic pancreatitis, Triglyceride level was very high at the time of admission but has come down with Just IV hydration, .Patient is still having pain but better than before, he is tolerating clear liquid diet , will advance diet to soft mechanical diet. Management plan was discussed in detail with patient Education was provided.
[2017-06-09] MEDS: Morphine 2 mg/ml ISec IVP PRN ×4 (03:42→21:40)
[2017-06-09 07:00] LABS: BASO # 0.03 K/mm3 (0.0-2.0); BASO % 0.7 % (0.0-3.0); EOS # 0.1 (0.0-0.7); EOS % 2.5 % (1.5-5.0); GRAN # 2.73 (1.4-6.5); GRAN % 61.9 % (50.0-68.0); HEMATOCRIT 32.1 % (42.0-52.0); LYMPH # 1.2 (1.2-3.4); LYMPH % 26.3 % (22.0-35.0); MEAN CELL VOLUME 74.3 fl (80.0-105.0); MEAN CORPUSCULAR HEMOGLOBIN 24.8 pg (25.0-35.0); MEAN CORPUSCULAR HGB CONC 33.3 g/dl (31.0-37.0); MEAN PLATELET VOLUME 11.5 fl (7.0-11.0); MONO # 0.4 (0.1-0.6); MONO % 8.6 % (1.0-6.0); RED CELL DISTRIBUTION WIDTH 14.3 % (11.5-14.5); WHITE BLOOD COUNT 4.4 10^3/ul (4.5-11.0)
[2017-06-09 07:29] LABS: ALKALINE PHOSPHATASE 72 U/L (38-126); ALT/SGPT 27 U/L (7-56); AST/SGOT 15 U/L (17-59); BILIRUBIN,TOTAL 0.7 mg/dL (0.2-1.3); BLOOD UREA NITROGEN 4 mg/dL (7-21); CALCIUM 8.3 mg/dL (8.4-10.5); CARBON DIOXIDE 26 mmol/L (21-33); CHLORIDE 104 mmol/L (98-107); GFR AFRICAN-AMERICAN > 60; GLUCOSE,RANDOM 248 mg/dL (70-110); POTASSIUM 3.9 mmol/L (3.6-5.0); SODIUM 138 mmol/L (132-148); TOTAL PROTEIN 6.1 g/dL (5.8-8.3)
[2017-06-09] MEDS: Insulin Lispro (humaLOG) MEDIUM Coverage SC SCH ×4 (09:19→21:40)
[2017-06-09] MEDS: PROTEASE PO SCH ×3 (09:21→17:38)
[2017-06-09] MEDS: [UNRECOGNIZED DRUG - OTHER] PO SCH ×3 (09:21→17:38)
[2017-06-09] MEDS: AMYLASE PO SCH ×3 (09:21→17:38)
[2017-06-09] MEDS: LIPASE PO SCH ×3 (09:21→17:38)
[2017-06-09] MEDS: Colesevelam Hcl [Welchol] 625 MG (HOME MED) PO SCH ×2 (10:51→18:24)
[2017-06-09] MEDS: Insulin Detemir 100 units/ml Vial (Levemir) SC SCH (10:51)
[2017-06-09] MEDS ORDERED: Iohexol 350 MG/100 ML VIAL ONE (13:19)
--- NOTE | 2017-06-09 15:02 | CT ---
PROCEDURE: CT Abdomen and Pelvis with contrast HISTORY: intractable abdominal pain COMPARISON: 04/05/2017 TECHNIQUE: CT scan of the abdomen and pelvis was performed after intravenous administration of contrast. Oral contrast was not administered. Coronal and sagittal reformatted images were obtained. Contrast dose: 100 mL Omnipaque 350 Radiation dose: Total exam DLP = 410.05 mGy-cm. This CT exam was performed using one or more of the following dose reduction techniques: Automated exposure control, adjustment of the mA and/or kV according to patient size, and/or use of iterative reconstruction technique. FINDINGS: LOWER THORAX: There are trace pleural effusions. The lung bases are clear. LIVER: The liver measures greater than 20 cm in craniocaudad dimension. There is diffuse fatty infiltration. There is mild intrahepatic biliary ductal dilatation. GALLBLADDER AND BILE DUCTS: There is a 2.6 x 1.3 cm the round hypodense structure in the region of the gallbladder fossa with an adjacent clip. There is abnormal soft-tissue surrounding this cystic structure within the gallbladder fossa also extending medially to the lateral margin of the 2nd portion of the duodenum and into the right superior retroperitoneum. There is persistent diffuse dilatation of the common bile delayed which measures [address] evidence for choledocholithiasis. PANCREAS: The head of the pancreas is normal in appearance. There is a stable 2.4 cm cystic lesion in the body of the pancreas. SPLEEN: Again seen is moderate splenomegaly. ADRENALS: Both adrenal glands are normal in size without discrete nodule. KIDNEYS AND URETERS: Both kidneys are normal in size and there is homogeneous enhancement without focal mass or hydronephrosis. There is a 3 mm nonobstructing stone in the upper pole of the left kidney. VASCULATURE: No aortic aneurysm. There are multiple perisplenic and gastric varices. BOWEL: The small bowel loops are normal in caliber. There is fecalization of distal small bowel contents. There is moderate amount of stool in the colon. No bowel dilatation or obstruction. APPENDIX: Not distinctly visualized. PERITONEUM: There is minimal perihepatic fluid and small amount of fluid in the right paracolic gutter. LYMPH NODES: No enlarged lymph nodes. BLADDER: Normal in appearance. REPRODUCTIVE: Unremarkable. BONES: No acute fracture. Degenerative disc disease at L4-5 and L5-S1. OTHER FINDINGS: None. IMPRESSION: 1. Status post cholecystectomy. 2.6 x 1.3 cm cystic structure in the gallbladder fossa likely dilated cystic duct with an adjacent clip. Mild intra and extrahepatic biliary ductal dilatation. Interval development of significant inflammatory soft tissue and edema/inflammatory changes surrounding this structure extending to the superior retroperitoneum. Small amount of perihepatic and paracortical fluid. 2. Hepatomegaly, hepatic steatosis and splenomegaly with portal hypertension. 3. Stable cystic lesion in the body of the pancreas, likely a pseudocyst given patient's history of pancreatitis.
[2017-06-09] MEDS: Sodium Chloride 0.9% 1,000 ML IV SCH (15:33)
[2017-06-09] MEDS ORDERED: Oxycodone/Acetaminophen 5/325 mg Tab PO PRN (15:36)
--- NOTE | 2017-06-09 17:11 | CP.PCM.PN ---
<RajendraScarlettn - Last Filed: 06/09/17 17:13> Subjective - Date & Time of Evaluation Date of Evaluation: 06/09/17 Time of Evaluation: 10:07 - Subjective Subjective: Patient was seen and examined at bedside. The patient reports right lower and upper quadrant pain still, however he reports its slightly better today and rates it a 7/10 today. The patient also reports feeling discomfort when eating today. The patient is able to ambulate with some initial lightheadedness upon standing. It subsides seconds after standing. The patient denies having a bowel movement since yesterday. The patient denies any chest pain, dysuria, nausea, vomiting, or any other complaints. Objective - Vital Signs/Intake and Output Vital Signs (last 24 hours): Temp Pulse Resp BP Pulse Ox 98 F 59 L 18 141/88 100 06/09/17 16:15 06/09/17 16:15 06/09/17 16:15 06/09/17 16:15 06/09/17 16:15 Intake and Output: 06/09/17 06/09/17 06:59 18:59 Intake Total 780 600 Balance 780 600 - Medications Medications: Current Medications Docusate Sodium (Colace) 100 mg PO DAILY [facility] Last Admin: 06/09/17 10:54 Dose: 100 mg Gemfibrozil (Lopid) 600 mg PO BID [facility] Last Admin: 06/09/17 10:50 Dose: 600 mg Heparin Sodium (Porcine) (Heparin) 5,000 units SC Q12 DO PRN Reason: Protocol Last Admin: 06/09/17 10:49 Dose: 5,000 units Sodium Chloride (Sodium Chloride 0.9%) 1,000 mls @ 80 mls/hr IV .[id number] [facility] Last Admin: 06/09/17 15:33 Dose: 80 mls/hr Insulin Detemir (Levemir) 16 unit SC DAILY [facility] Last Admin: 06/09/17 10:51 Dose: 16 unit Insulin Human Lispro (Humalog Med) 0 units SC ACHS [facility] PRN Reason: Protocol Last Admin: 06/09/17 12:11 Dose: 5 units Morphine Sulfate (Morphine) 2 mg IVP Q4H PRN PRN Reason: Pain, severe (8-10) Last Admin: 06/09/17 15:32 Dose: 2 mg Non-Formulary Medication (Lipase/Protease/Amylase [Kiel Leal 36,000 Units Capsule ]) 2 each PO WM [facility] Last Admin: 06/09/17 12:11 Dose: 2 each Colesevelam Hcl [ Welchol] 625 Mg ( Home Med) 625 mg PO BID [facility] Last Admin: 06/09/17 10:51 Dose: Not Given Ondansetron HCl (Zofran Inj) 4 mg IVP Q4H PRN PRN Reason: Nausea/Vomiting Last Admin: 06/09/17 15:39 Dose: 4 mg Oxycodone/Acetaminophen (Percocet 5/325 Mg Tab) 2 tab PO Q6H PRN PRN Reason: Pain, moderate (4-7) Stop: 06/12/17 15:37 Pantoprazole Sodium (Protonix Inj) 40 mg IVP DAILY [facility] Last Admin: 06/09/17 10:48 Dose: 40 mg - Labs Labs: 06/09/17 06:51 06/09/17 06:51 - Head Exam Head Exam: ATRAUMATIC, NORMAL INSPECTION, NORMOCEPHALIC - Eye Exam Eye Exam: EOMI, Normal appearance, PERRL. absent: Nystagmus Pupil Exam: NORMAL ACCOMODATION, PERRL. absent: Irregular - ENT Exam ENT Exam: Mucous Membranes Moist - Neck Exam Neck Exam: Normal Inspection. absent: Lymphadenopathy, Thyromegaly - Respiratory Exam Respiratory Exam: Clear to Ausculation Bilateral, NORMAL BREATHING PATTERN. absent: Rales, Rhonchi - Cardiovascular Exam Cardiovascular Exam: REGULAR RHYTHM, RRR, +S1, +S2. absent: Gallop, Rubs - GI/Abdominal Exam GI & Abdominal Exam: Guarding, Tenderness, Normal Bowel Sounds - Extremities Exam Extremities Exam: Full ROM - Back Exam Back Exam: NORMAL INSPECTION. absent: paraspinal tenderness - Neurological Exam Neurological Exam: Alert, Awake, CN II-XII Intact, Oriented x3 - Psychiatric Exam Psychiatric exam: Normal Affect, Normal Mood - Skin Skin Exam: Dry, Intact, Normal Color Assessment and Plan - Assessment and Plan (Free Text) Assessment: 42 year old male with a past medical history of Hep C, Arthritis, chronic pancreatitis with insufficiency, pancreatic cysts, DM, hypertriglyceridemia, who presented to the ED with complaints of N/V/D and abdominal pain that started today. Plan: 1. Acute on Chronic Abdominal Pain, with Vomiting and Diarrhea -likely 2/2 acute on chronic pancreatitis vs SBO vs gastritis -Patient reports flatulence, and exam does not indicate acute abdomen, so less likely to have SBO -Patient has not been taking PO meds, including pancreatic enzyme supplements, which likely precipitated this episode -GI rec's appreciated. -Continue morphine 2mg q4h for pain control -Continue IVF hydration NS@80 cc/hr (after 3L NS bolus) -Continue zofran prn for n/v -Continue Soft Diabetic diet started. Will continue to advance as tolerated. 2. HONK; h/o DM -Patient presented with BG 248, with elevated anion gap and ketonuria, but no acidosis. BG improved to 277, and AG closed after 2L NS bolus, so less likely DKA, not requiring insulin drip -Blood glucose 248 today. -Continue Regular sliding scale insulin -Continue Fingersticks q6h 3. Hypertriglyceridemia -Patient presented with TG 2050, HDL 14. Hypertriglyceridemia may have precipitated acute pancreatitis. Triglycerides continue to trend down. -Continue aggressive IVF hydration 551-->353 currently. -GI rec's appreciated. -Continue pancreatic enzyme replacements. 4.Hepatitis C -Hepatomegaly appreciated on exam. AST(15) and ALT (27) -Currently not on any medications. -Will continue to monitor liver enzymes. GI ppx -Continue Protonix DVT ppx -Continue SCD's <Elda ESPINOZA,Cameron - Last Filed: 06/10/17 11:15> Objective - Vital Signs/Intake and Output Vital Signs (last 24 hours): Temp Pulse Resp BP Pulse Ox 97.4 F L 51 L 18 170/92 H 97 06/10/17 07:52 06/10/17 07:52 06/10/17 07:52 06/10/17 07:52 06/10/17 07:52 Intake and Output: 06/10/17 06/10/17 06:59 18:59 Intake Total 2400 Balance 2400 - Medications Medications: Current Medications Docusate Sodium (Colace) 100 mg PO DAILY [facility] Last Admin: 06/10/17 09:23 Dose: 100 mg Gemfibrozil (Lopid) 600 mg PO BID [facility] Last Admin: 06/10/17 09:24 Dose: 600 mg Heparin Sodium (Porcine) (Heparin) 5,000 units SC Q12 [facility] PRN Reason: Protocol Last Admin: 06/10/17 09:23 Dose: 5,000 units Sodium Chloride (Sodium Chloride 0.9%) 1,000 mls @ 80 mls/hr IV .[id number] [facility] Last Admin: 06/10/17 03:25 Dose: 80 mls/hr Insulin Detemir (Levemir) 18 unit SC DAILY [facility] Last Admin: 06/10/17 09:23 Dose: 18 unit Insulin Human Lispro (Humalog Med) 0 units SC ACHS [facility] PRN Reason: Protocol Last Admin: 06/10/17 08:16 Dose: 7 units Morphine Sulfate (Morphine) 2 mg IVP Q4H PRN PRN Reason: Pain, moderate (4-7) Last Admin: 06/10/17 10:47 Dose: 2 mg Non-Formulary Medication (Lipase/Protease/Amylase [Creon Dr 36,000 Units Capsule ]) 2 each PO WM [facility] Last Admin: 06/10/17 08:16 Dose: 2 each Colesevelam Hcl [ Welchol] 625 Mg ( Home Med) 625 mg PO BID [facility] Last Admin: 06/10/17 09:23 Dose: Not Given Ondansetron HCl (Zofran Inj) 4 mg IVP Q4H PRN PRN Reason: Nausea/Vomiting Last Admin: 06/10/17 10:49 Dose: 4 mg Oxycodone/Acetaminophen (Percocet 5/325 Mg Tab) 2 tab PO Q4H PRN PRN Reason: Pain, moderate (4-7) Stop: 06/12/17 15:37 Pantoprazole Sodium (Protonix Inj) 40 mg IVP DAILY [facility] Last Admin: 06/10/17 09:25 Dose: 40 mg - Labs Labs: 06/10/17 06:30 06/10/17 06:30 Attending/Attestation - Attestation I have personally seen and examined this patient.: Yes I have fully participated in the care of the patient.: Yes I have reviewed all pertinent clinical information, including history, physical exam and plan: Yes Notes (Text): 06/10/17 11:11 Patient was seen and examined with medical representative. Agreed with resident assessment and plan. 42 yrs M with PMH of Hepatitis C, Chronic pancreatitis, DM, HLD, Arthritis, and Chronic back pain presents with acute on chronic pancreatitis, Triglyceride level was very high at the time of admission but has come down with Just IV hydration, .Patient is still having pain, pain is more on the right upper and middle quadrant.As per patient his abdominal pain is getting worse, we will get CT scan of abdomen and Pelvis. Management plan was discussed in detail with patient Education was provided.
[2017-06-09] MEDS ORDERED: Insulin Human NPH/Reg 70/30 Vial(3 ml) SC SCH (18:00)
[2017-06-10] MEDS: Sodium Chloride 0.9% 1,000 ML IV SCH (03:25)
[2017-06-10] MEDS: Morphine 2 mg/ml ISec IVP PRN ×4 (03:26→20:39)
[2017-06-10 07:15] LABS: BASO # 0.02 K/mm3 (0.0-2.0); BASO % 0.7 % (0.0-3.0); EOS # 0.2 (0.0-0.7); EOS % 5.2 % (1.5-5.0); GRAN # 1.31 (1.4-6.5); GRAN % 42.8 % (50.0-68.0); HEMATOCRIT 33.5 % (42.0-52.0); LYMPH # 1.3 (1.2-3.4); LYMPH % 41.2 % (22.0-35.0); MEAN CELL VOLUME 74.8 fl (80.0-105.0); MEAN CORPUSCULAR HEMOGLOBIN 24.8 pg (25.0-35.0); MEAN CORPUSCULAR HGB CONC 33.1 g/dl (31.0-37.0); MEAN PLATELET VOLUME 10.8 fl (7.0-11.0); MONO # 0.3 (0.1-0.6); MONO % 10.1 % (1.0-6.0); RED CELL DISTRIBUTION WIDTH 14.4 % (11.5-14.5); WHITE BLOOD COUNT 3.1 10^3/ul (4.5-11.0)
[2017-06-10 07:38] LABS: ALKALINE PHOSPHATASE 84 U/L (38-126); ALT/SGPT 26 U/L (7-56); AST/SGOT 18 U/L (17-59); BILIRUBIN,TOTAL 0.6 mg/dL (0.2-1.3); BLOOD UREA NITROGEN 6 mg/dL (7-21); CALCIUM 8.6 mg/dL (8.4-10.5); CARBON DIOXIDE 25 mmol/L (21-33); CHLORIDE 104 mmol/L (98-107); GFR AFRICAN-AMERICAN > 60; GLUCOSE,RANDOM 267 mg/dL (70-110); SODIUM 138 mmol/L (132-148); TOTAL PROTEIN 6.3 g/dL (5.8-8.3)
[2017-06-10] MEDS: Insulin Lispro (humaLOG) MEDIUM Coverage SC SCH ×4 (08:16→21:59)
[2017-06-10] MEDS: [UNRECOGNIZED DRUG - OTHER] PO SCH ×3 (08:16→17:12)
[2017-06-10] MEDS: LIPASE PO SCH ×3 (08:16→17:12)
[2017-06-10] MEDS: PROTEASE PO SCH ×3 (08:16→17:12)
[2017-06-10] MEDS: AMYLASE PO SCH ×3 (08:16→17:12)
[2017-06-10] MEDS: Insulin Detemir 100 units/ml Vial (Levemir) SC SCH (09:23)
[2017-06-10] MEDS: Colesevelam Hcl [Welchol] 625 MG (HOME MED) PO SCH ×2 (09:23→17:11)
[2017-06-10] MEDS ORDERED: Oxycodone/Acetaminophen 5/325 mg Tab PO PRN (09:33)
--- NOTE | 2017-06-10 14:30 | US ---
HISTORY: ruq pain. Focus on RUQ. COMPARISON: CT abdomen and pelvis performed on 06/09/2017 TECHNIQUE: Grayscale imaging was performed. FINDINGS: LIVER: Measures 14.4 cm. Normal echogenicity of the liver parenchyma. No mass. No intrahepatic bile duct dilatation. GALLBLADDER: Surgically absent. COMMON BILE DUCT: Measures 1.2 cm. No stones. No dilatation. PANCREAS: Unremarkable as visualized. No mass. No ductal dilatation. RIGHT KIDNEY: Measures 11.0cm. Normal echogenicity. No calculus, mass, or hydronephrosis. LEFT KIDNEY: Measures 11.3cm. Normal echogenicity. No calculus, mass, or hydronephrosis. SPLEEN: Normal in size and contour. No mass. AORTA: No aneurysmal dilatation. IVC: Unremarkable. OTHER FINDINGS: None. IMPRESSION: Status post cholecystectomy, diffuse dilatation of the common bile duct is in keeping with post cholecystectomy status.
--- NOTE | 2017-06-10 17:48 | CP.PCM.PN ---
<RajendraScarlettn - Last Filed: 06/10/17 21:53> Subjective - Date & Time of Evaluation Date of Evaluation: 06/10/17 Time of Evaluation: 07:37 - Subjective Subjective: The patient was seen and examined at bedside this morning. The patient reports right upper quadrant and left lower quadrant abdominal pain today. The patient continues to tolerate diet however does report still feeling some discomfort when swallowing food. The patient reports there has been no change on the right side, however on the upper left and lower left quadrant there has been a decrease in the pain. The patient denies any chest pain, shortness of breath, vomiting, fever, chills, headaches, numbness or tingling in the hands or feet, or any other complaints. Objective - Vital Signs/Intake and Output Vital Signs (last 24 hours): Temp Pulse Resp BP Pulse Ox 97 F L 56 L 18 111/67 99 06/10/17 16:00 06/10/17 16:00 06/10/17 16:00 06/10/17 16:00 06/10/17 16:00 Intake and Output: 06/10/17 06/10/17 06:59 18:59 Intake Total 2400 Balance 2400 - Medications Medications: Current Medications Docusate Sodium (Colace) 100 mg PO DAILY [facility] Last Admin: 06/10/17 09:23 Dose: 100 mg Gemfibrozil (Lopid) 600 mg PO BID [facility] Last Admin: 06/10/17 17:12 Dose: 600 mg Heparin Sodium (Porcine) (Heparin) 5,000 units SC Q12 DO PRN Reason: Protocol Last Admin: 06/10/17 09:23 Dose: 5,000 units Sodium Chloride (Sodium Chloride 0.9%) 1,000 mls @ 80 mls/hr IV .[id number] [facility] Last Admin: 06/10/17 03:25 Dose: 80 mls/hr Insulin Detemir (Levemir) 18 unit SC DAILY [facility] Last Admin: 06/10/17 09:23 Dose: 18 unit Insulin Human Lispro (Humalog Med) 0 units SC ACHS [facility] PRN Reason: Protocol Last Admin: 06/10/17 17:11 Dose: 3 units Morphine Sulfate (Morphine) 2 mg IVP Q4H PRN PRN Reason: Pain, moderate (4-7) Last Admin: 06/10/17 15:31 Dose: 2 mg Non-Formulary Medication (Lipase/Protease/Amylase [Creon Dr 36,000 Units Capsule ]) 2 each PO WM [facility] Last Admin: 06/10/17 17:12 Dose: 2 each Colesevelam Hcl [ Welchol] 625 Mg ( Home Med) 625 mg PO BID [facility] Last Admin: 06/10/17 17:11 Dose: Not Given Ondansetron HCl (Zofran Inj) 4 mg IVP Q4H PRN PRN Reason: Nausea/Vomiting Last Admin: 06/10/17 15:32 Dose: 4 mg Oxycodone/Acetaminophen (Percocet 5/325 Mg Tab) 2 tab PO Q4H PRN PRN Reason: Pain, moderate (4-7) Stop: 06/12/17 15:37 Pantoprazole Sodium (Protonix Inj) 40 mg IVP DAILY [facility] Last Admin: 06/10/17 09:25 Dose: 40 mg - Labs Labs: 06/10/17 06:30 06/10/17 06:30 - Head Exam Head Exam: ATRAUMATIC, NORMAL INSPECTION, NORMOCEPHALIC - Eye Exam Eye Exam: EOMI, Normal appearance, PERRL Pupil Exam: NORMAL ACCOMODATION, PERRL - ENT Exam ENT Exam: Mucous Membranes Moist, Normal Exam - Neck Exam Neck Exam: Normal Inspection, Tenderness - Respiratory Exam Respiratory Exam: Clear to Ausculation Bilateral, Rhonchi, Wheezes, NORMAL BREATHING PATTERN - Cardiovascular Exam Cardiovascular Exam: REGULAR RHYTHM, +S1, +S2. absent: JVD - GI/Abdominal Exam GI & Abdominal Exam: Soft, Tenderness, Normal Bowel Sounds - Extremities Exam Extremities Exam: Full ROM - Back Exam Back Exam: NORMAL INSPECTION. absent: CVA tenderness (L), CVA tenderness (R) - Neurological Exam Neurological Exam: Alert, Awake, CN II-XII Intact - Psychiatric Exam Psychiatric exam: Normal Affect - Skin Skin Exam: Dry, Normal Color Assessment and Plan - Assessment and Plan (Free Text) Assessment: 42 year old male with a past medical history of Hep C, Arthritis, chronic pancreatitis with insufficiency, pancreatic cysts, DM, hypertriglyceridemia, who presented to the ED with complaints of N/V/D and abdominal pain that started today. Plan: 1. Acute on Chronic Abdominal Pain, with Vomiting and Diarrhea -likely 2/2 acute on chronic pancreatitis vs SBO vs gastritis -Patient reports flatulence, and exam does not indicate acute abdomen, so less likely to have SBO -Patient has not been taking PO meds, including pancreatic enzyme supplements, which likely precipitated this episode -GI rec's appreciated. -Abdominal U/S ordered. F/U with results tomorrow. -Continue morphine 2mg q4h for pain control -Continue IVF hydration NS@80 cc/hr (after 3L NS bolus) -Continue zofran prn for n/v -Continue Soft Diabetic diet started. Will continue to advance as tolerated. 2. HONK; h/o DM -Patient presented with BG 248, with elevated anion gap and ketonuria, but no acidosis. BG improved to 277, and AG closed after 2L NS bolus, so less likely DKA, not requiring insulin drip -Continue Regular sliding scale insulin -Continue Fingersticks q6h 3. Hypertriglyceridemia -Patient presented with TG 2050, HDL 14. Hypertriglyceridemia may have precipitated acute pancreatitis. Triglycerides continue to trend down. -Continue aggressive IVF hydration 551-->353 currently. -GI rec's appreciated. -Continue pancreatic enzyme replacements. 4.Hepatitis C -Hepatomegaly appreciated on exam. AST(15) and ALT (27) -Currently not on any medications. -Will continue to monitor liver enzymes. GI ppx -Continue Protonix DVT ppx -Continue SCD's <Elda ESPINOZA,Cameron - Last Filed: 06/11/17 12:18> Objective - Vital Signs/Intake and Output Vital Signs (last 24 hours): Temp Pulse Resp BP Pulse Ox 97.6 F 50 L 20 119/67 96 06/11/17 07:00 06/11/17 07:00 06/11/17 07:00 06/11/17 07:00 06/11/17 07:00 Intake and Output: 06/11/17 06/11/17 06:59 18:59 Intake Total 1020 300 Balance 1020 300 - Medications Medications: Current Medications Docusate Sodium (Colace) 100 mg PO DAILY [facility] Last Admin: 06/11/17 09:56 Dose: 100 mg Gemfibrozil (Lopid) 600 mg PO BID [facility] Last Admin: 06/11/17 09:56 Dose: 600 mg Heparin Sodium (Porcine) (Heparin) 5,000 units SC Q12 [facility] PRN Reason: Protocol Last Admin: 06/11/17 09:57 Dose: 5,000 units Sodium Chloride (Sodium Chloride 0.9%) 1,000 mls @ 80 mls/hr IV .[id number] [facility] Last Admin: 06/11/17 08:20 Dose: 80 mls/hr Insulin Detemir (Levemir) 18 unit SC DAILY [facility] Last Admin: 06/11/17 09:55 Dose: 18 unit Insulin Human Lispro (Humalog Med) 0 units SC ACHS [facility] PRN Reason: Protocol Last Admin: 06/11/17 11:42 Dose: 7 units Morphine Sulfate (Morphine) 2 mg IVP Q4H PRN PRN Reason: Pain, moderate (4-7) Last Admin: 06/11/17 10:49 Dose: 2 mg Non-Formulary Medication (Lipase/Protease/Amylase [Creon Dr 36,000 Units Capsule ]) 2 each PO WM [facility] Last Admin: 06/11/17 11:46 Dose: 2 each Colesevelam Hcl [ Welchol] 625 Mg ( Home Med) 625 mg PO BID [facility] Last Admin: 06/11/17 09:57 Dose: Not Given Ondansetron HCl (Zofran Inj) 4 mg IVP Q4H PRN PRN Reason: Nausea/Vomiting Last Admin: 06/11/17 10:49 Dose: 4 mg Oxycodone/Acetaminophen (Percocet 5/325 Mg Tab) 2 tab PO Q4H PRN PRN Reason: Pain, moderate (4-7) Stop: 06/12/17 15:37 Pantoprazole Sodium (Protonix Inj) 40 mg IVP DAILY [facility] Last Admin: 06/11/17 09:57 Dose: 40 mg Polyethylene Glycol (Miralax) 17 gm PO DAILY PRN PRN Reason: Constipation - Labs Labs: 06/11/17 06:00 06/11/17 06:00 Attending/Attestation - Attestation I have fully participated in the care of the patient.: Yes I have reviewed all pertinent clinical information, including history, physical exam and plan: Yes Notes (Text): 06/11/17 12:17 Patient was seen and examined with certified medical biller. Agreed with resident assessment and plan. 42 yrs M with PMH of Hepatitis C, Chronic pancreatitis, DM, HLD, Arthritis, and Chronic back pain presents with acute on chronic pancreatitis, Triglyceride level was very high at the time of admission but has come down with Just IV hydration, .Patient is still having pain, pain is more on the right upper and middle quadrant. CT scan of abdomen and Pelvis showed stable pancreatic cyst, and non specific finding at the site of cholycystectomy.We will get right upper quadant USG and surgery consult.Patient is tolerating soft diet, we will continue soft diet at this time. Management plan was discussed in detail with patient Education was provided.
--- NOTE | 2017-06-10 22:23 | CP.PCM.CON ---
History of Present Illness - History of Present Illness History of Present Illness: Surgery: Dr. Ding CC: ABD pain HPI: 42M with PMH of Hepatitis C, Chronic pancreatitis, DM, HLD, Arthritis s/p open cholecystectomy and pancreatic cyst removal 10 months ago at [facility], presents to [facility] wTa abd pain. Pt states that he has been experiencing chronic pain for the last 2 months which has been increasing in severity over the past few days. The pain is mostly in the epigastric and RUQ area. Pain is described as knife like. Pt denies any alleviating or aggravating factors. He reports decreased appetite and on the day of admission he had multiple episodes of of NBNB emesis as well as non-bloody diarrhea. When pt was seen today, he states that his pain persists, but it is improved compared to pain on admission. 12 pt ROS performed and negative unless specified PMH: see above PSH: appendectomy, cholecystectomy, pacnreatic cyst removal Meds: MAR reviewed NKDA Social: +Tobacco, no ETOH/drugs Fhx: Non-contributory Past Patient History - Infectious Disease Hx of Infectious Diseases: None - Tetanus Immunizations Tetanus Immunization: Unknown - Past Medical History & Family History Past Medical History?: Yes - Past Social History Smoking Status: Heavy Smoker > 10 Cigarettes Daily - CARDIAC Hx Cardiac Disorders: Yes Hx Cardia Arrhythmia: Yes (bradycardia) Hx Hypertension: Yes Hx Peripheral Vascular Disease: Yes - PULMONARY Hx Respiratory Disorders: Yes (chronic dry cough x 8 months since sx) - NEUROLOGICAL Hx Neurological Disorder: Yes Hx Dizziness: Yes (falls from dizziness since 2013) - HEENT Hx HEENT Problems: Yes (blurry vision) Other/Comment: beaver due to earwax - RENAL Hx Kidney Stones: Yes - ENDOCRINE/METABOLIC Hx Endocrine Disorders: Yes Hx Diabetes Mellitus Type 1: Yes - HEMATOLOGICAL/ONCOLOGICAL Hx Blood Disorders: Yes Hx Hepatitis C: Yes - INTEGUMENTARY Hx Dermatological Problems: Yes Other/Comment: chronic itchy skin since "surgery 8 months ago" - MUSCULOSKELETAL/RHEUMATOLOGICAL Hx Falls: Yes ("dizzy and falling since 2013") - GASTROINTESTINAL Hx Gastrointestinal Disorders: Yes (chronic constipation) Hx Gall Bladder Disease: Yes (gallstones) Hx Gastroesophageal Reflux: Yes Hx Pancreatitis: Yes - GENITOURINARY/GYNECOLOGICAL Hx Genitourinary Disorders: Yes (burning on urination "sometimes') Hx Urinary Tract Infection: Yes - PSYCHIATRIC Hx Depression: Yes Hx Substance Use: No - SURGICAL HISTORY Hx Appendectomy: Yes Hx Cholecystectomy: Yes Other/Comment: 2009 in [place] ap ruptured damagec pancreas, had sx on pancreas and gb sx [facility] ago - ANESTHESIA Hx Anesthesia: Yes Meds Allergies/Adverse Reactions: Allergies Allergy/AdvReac Type Severity Reaction Status Date / Time dy Allergy Mild ITCHING Uncoded 04/25/17 13:16 hair color dye Allergy RASH Uncoded 04/25/17 13:16 - Medications Medications: Current Medications Docusate Sodium (Colace) 100 mg PO DAILY REPLACED BY [facility] Last Admin: 06/10/17 09:23 Dose: 100 mg Gemfibrozil (Lopid) 600 mg PO BID REPLACED BY [facility] Last Admin: 06/10/17 17:12 Dose: 600 mg Heparin Sodium (Porcine) (Heparin) 5,000 units SC Q12 DO PRN Reason: Protocol Last Admin: 06/10/17 09:23 Dose: 5,000 units Sodium Chloride (Sodium Chloride 0.9%) 1,000 mls @ 80 mls/hr IV .[id number] REPLACED BY [facility] Last Admin: 06/10/17 03:25 Dose: 80 mls/hr Insulin Detemir (Levemir) 18 unit SC DAILY REPLACED BY [facility] Last Admin: 06/10/17 09:23 Dose: 18 unit Insulin Human Lispro (Humalog Med) 0 units SC ACHS REPLACED BY [facility] PRN Reason: Protocol Last Admin: 06/10/17 17:11 Dose: 3 units Morphine Sulfate (Morphine) 2 mg IVP Q4H PRN PRN Reason: Pain, moderate (4-7) Last Admin: 06/10/17 20:39 Dose: 2 mg Non-Formulary Medication (Lipase/Protease/Amylase [Creon Dr 36,000 Units Capsule ]) 2 each PO WM REPLACED BY [facility] Last Admin: 06/10/17 17:12 Dose: 2 each Colesevelam Hcl [ Welchol] 625 Mg ( Home Med) 625 mg PO BID REPLACED BY [facility] Last Admin: 06/10/17 17:11 Dose: Not Given Ondansetron HCl (Zofran Inj) 4 mg IVP Q4H PRN PRN Reason: Nausea/Vomiting Last Admin: 06/10/17 20:38 Dose: 4 mg Oxycodone/Acetaminophen (Percocet 5/325 Mg Tab) 2 tab PO Q4H PRN PRN Reason: Pain, moderate (4-7) Stop: 06/12/17 15:37 Pantoprazole Sodium (Protonix Inj) 40 mg IVP DAILY DO Last Admin: 06/10/17 09:25 Dose: 40 mg Physical Exam - Constitutional Appears: Non-toxic, No Acute Distress - Head Exam Head Exam: ATRAUMATIC, NORMOCEPHALIC - Eye Exam Eye Exam: EOMI. absent: Scleral icterus - ENT Exam ENT Exam: Mucous Membranes Moist, Normal External Ear Exam - Neck Exam Neck exam: Positive for: Full Rom. Negative for: Lymphadenopathy - Respiratory Exam Respiratory Exam: NORMAL BREATHING PATTERN. absent: Accessory Muscle Use, Respiratory Distress - Cardiovascular Exam Cardiovascular Exam: REGULAR RHYTHM - GI/Abdominal Exam GI & Abdominal Exam: Soft, Tenderness (epigastric, RUQ). absent: Distended, Firm, Guarding, Rebound, Rigid Additional comments: Melvina incision, midline abd incison, healing well - Extremities Exam Extremities exam: Negative for: calf tenderness, pedal edema - Neurological Exam Neurological exam: Alert, Oriented x3 - Psychiatric Exam Psychiatric exam: Normal Affect, Normal Mood - Skin Skin Exam: Dry, Warm Results - Vital Signs Recent Vital Signs: Last Vital Signs Temp 97 F L 06/10/17 16:00 Pulse 56 L 06/10/17 16:00 Resp 18 06/10/17 16:00 BP 111/67 06/10/17 16:00 Pulse Ox 99 06/10/17 16:00 - Labs Result Diagrams: 06/10/17 06:30 06/10/17 06:30 Labs: Laboratory Results - last 24 hr 06/10/17 06/10/17 06/10/17 02:23 06:30 06:30 WBC 3.1 L D RBC 4.48 Hgb 11.1 L Hct 33.5 L MCV 74.8 L MCH 24.8 L MCHC 33.1 RDW 14.4 Plt Count 111 L MPV 10.8 Gran % 42.8 L Lymph % (Auto) 41.2 H [place] % (Auto) 10.1 H Eos % (Auto) 5.2 H Baso % (Auto) 0.7 Gran # 1.31 L Lymph # 1.3 [place] # 0.3 Eos # 0.2 Baso # 0.02 Sodium 138 Potassium 4.0 Chloride 104 Carbon Dioxide 25 Anion Gap 13 BUN 6 L Creatinine 0.6 Est GFR ( Amer) > 60 Est GFR (Non-Af Amer) > 60 POC Glucose (mg/dL) 309 H Random Glucose 267 H Calcium 8.6 Total Bilirubin 0.6 AST 18 ALT 26 Alkaline Phosphatase 84 Total Protein 6.3 Albumin 3.2 Globulin 3.1 Albumin/Globulin Ratio 1.0 L 06/10/17 06/10/17 07:19 11:17 WBC RBC Hgb Hct MCV MCH MCHC RDW Plt Count MPV Gran % Lymph % (Auto) [place] % (Auto) Eos % (Auto) Baso % (Auto) Gran # Lymph # [place] # Eos # Baso # Sodium Potassium Chloride Carbon Dioxide Anion Gap BUN Creatinine Est GFR ( Amer) Est GFR (Non-Af Amer) POC Glucose (mg/dL) 318 H 299 H Random Glucose Calcium Total Bilirubin AST ALT Alkaline Phosphatase Total Protein Albumin Globulin Albumin/Globulin Ratio - Imaging and Cardiology CT scan - abdomen Status: Image reviewed by me, Report reviewed by me US - abdomen Status: Image reviewed by me, Report reviewed by me Assessment & Plan - Assessment and Plan (Free Text) Assessment: 42M w. abd pain likely 2/2 chronic pancreatitis -medical management / supportive care -no plans for surgical intervention -recommend pt f/u w. surgeon at [facility] upon d/c -please re-consult if needed -d/w attending Jeff PGY3
[2017-06-11 01:19] VITALS: RESP 20
[2017-06-11] MEDS: Morphine 2 mg/ml ISec IVP PRN ×3 (05:33→15:03)
[2017-06-11 06:31] LABS: ALB/GLOB RATIO 1.1 (1.1-1.8); ALKALINE PHOSPHATASE 79 U/L (38-126); ALT/SGPT 26 U/L (7-56); AST/SGOT 19 U/L (17-59); BILIRUBIN,TOTAL 0.5 mg/dL (0.2-1.3); BLOOD UREA NITROGEN 8 mg/dL (7-21); CALCIUM 8.8 mg/dL (8.4-10.5); CARBON DIOXIDE 25 mmol/L (21-33); CHLORIDE 103 mmol/L (98-107); GFR AFRICAN-AMERICAN > 60; GLUCOSE,RANDOM 249 mg/dL (70-110); SODIUM 138 mmol/L (132-148); TOTAL PROTEIN 6.4 g/dL (5.8-8.3)
[2017-06-11 06:34] LABS: BASO # 0.03 K/mm3 (0.0-2.0); BASO % 0.8 % (0.0-3.0); EOS # 0.2 (0.0-0.7); EOS % 4.2 % (1.5-5.0); GRAN # 1.5 (1.4-6.5); GRAN % 42.1 % (50.0-68.0); LYMPH # 1.6 (1.2-3.4); LYMPH % 45.1 % (22.0-35.0); MEAN CELL VOLUME 74.2 fl (80.0-105.0); MEAN CORPUSCULAR HEMOGLOBIN 24.7 pg (25.0-35.0); MEAN CORPUSCULAR HGB CONC 33.3 g/dl (31.0-37.0); MEAN PLATELET VOLUME 11.9 fl (7.0-11.0); MONO # 0.3 (0.1-0.6); MONO % 7.8 % (1.0-6.0); RED CELL DISTRIBUTION WIDTH 14.3 % (11.5-14.5); WHITE BLOOD COUNT 3.6 10^3/ul (4.5-11.0)
[2017-06-11] MEDS: LIPASE PO SCH ×3 (08:17→17:07)
[2017-06-11] MEDS: PROTEASE PO SCH ×3 (08:17→17:07)
[2017-06-11] MEDS: [UNRECOGNIZED DRUG - OTHER] PO SCH ×3 (08:17→17:07)
[2017-06-11] MEDS: AMYLASE PO SCH ×3 (08:17→17:07)
[2017-06-11] MEDS: Insulin Lispro (humaLOG) MEDIUM Coverage SC SCH ×3 (08:17→17:06)
[2017-06-11] MEDS: Sodium Chloride 0.9% 1,000 ML IV SCH (08:20)
[2017-06-11] MEDS: Insulin Detemir 100 units/ml Vial (Levemir) SC SCH (09:55)
[2017-06-11] MEDS: Colesevelam Hcl [Welchol] 625 MG (HOME MED) PO SCH ×2 (09:57→19:02)
[2017-06-11] MEDS ORDERED: POLYETHYLENE GLYCOL 3350 17 GM/Dose PACKET PO PRN (11:46)
--- NOTE | 2017-06-11 12:29 | CP.PCM.DIS ---
Provider - Provider Date of Admission: 06/07/17 07:22 Attending physician: Cameron Schroeder MD Primary care physician: Shani Atwood DO Time Spent in preparation of Discharge (in minutes): 40 Hospital Course - Lab Results Lab Results: Most Recent Lab Values WBC 3.6 10^3/ul (4.5-11.0) L 06/11/17 06:00 RBC 4.45 10^6/uL (3.5-6.1) 06/11/17 06:00 Hgb 11.0 g/dL (14.0-18.0) L 06/11/17 06:00 Hct 33.0 % (42.0-52.0) L 06/11/17 06:00 MCV 74.2 fl (80.0-105.0) L 06/11/17 06:00 MCH 24.7 pg (25.0-35.0) L 06/11/17 06:00 MCHC 33.3 g/dl (31.0-37.0) 06/11/17 06:00 RDW 14.3 % (11.5-14.5) 06/11/17 06:00 Plt Count 128 10^3/uL (120.0-450.0) 06/11/17 06:00 MPV 11.9 fl (7.0-11.0) H 06/11/17 06:00 Gran % 42.1 % (50.0-68.0) L 06/11/17 06:00 Lymph % (Auto) 45.1 % (22.0-35.0) H 06/11/17 06:00 [place] % (Auto) 7.8 % (1.0-6.0) H 06/11/17 06:00 Eos % (Auto) 4.2 % (1.5-5.0) 06/11/17 06:00 Baso % (Auto) 0.8 % (0.0-3.0) 06/11/17 06:00 Gran # 1.50 (1.4-6.5) 06/11/17 06:00 Lymph # 1.6 (1.2-3.4) 06/11/17 06:00 Crisp # 0.3 (0.1-0.6) 06/11/17 06:00 Eos # 0.2 (0.0-0.7) 06/11/17 06:00 Baso # 0.03 K/mm3 (0.0-2.0) 06/11/17 06:00 pO2 34 mm/Hg (30-55) 06/05/17 22:57 VBG pH 7.34 (7.32-7.43) 06/05/17 22:57 VBG pCO2 49.0 (40-60) 06/05/17 22:57 VBG HCO3 26.4 mmol/l (21-28) 06/05/17 22:57 VBG Total CO2 27.9 mmol.L (22-28) 06/05/17 22:57 VBG O2 Sat (Calc) 70.8 % (40-65) H 06/05/17 22:57 VBG Base Excess -0.1 mmol/L (0.0-2.0) L 06/05/17 22:57 VBG Potassium 5.1 mmol/L (3.6-5.2) 06/05/17 22:57 Sodium 133.0 mmol/L (132-148) 06/05/17 22:57 Chloride 102.0 mmol/L (98-107) 06/05/17 22:57 Glucose 349 mg/dl (75-110) H 06/05/17 22:57 Lactate 1.1 mmol/L (0.7-2.1) 06/05/17 22:57 FiO2 21.0 % 06/05/17 22:57 Sodium 138 mmol/L (132-148) 06/11/17 06:00 Potassium 4.0 mmol/L (3.6-5.0) 06/11/17 06:00 Chloride 103 mmol/L (98-107) 06/11/17 06:00 Carbon Dioxide 25 mmol/L (21-33) 06/11/17 06:00 Anion Gap 14 (10-20) 06/11/17 06:00 BUN 8 mg/dL (7-21) 06/11/17 06:00 Creatinine 0.6 mg/dL (0.5-1.4) 06/11/17 06:00 Est GFR ( Amer) > 60 06/11/17 06:00 Est GFR (Non-Af Amer) > 60 06/11/17 06:00 POC Glucose (mg/dL) 334 mg/dL (65-110) H 06/11/17 11:15 Random Glucose 249 mg/dL (70-110) H 06/11/17 06:00 Calcium 8.8 mg/dL (8.4-10.5) 06/11/17 06:00 Phosphorus 3.2 mg/dL (2.5-4.5) 06/07/17 06:30 Magnesium 1.6 mg/dL (1.7-2.2) L 06/07/17 06:30 Total Bilirubin 0.5 mg/dL (0.2-1.3) 06/11/17 06:00 AST 19 U/L (17-59) 06/11/17 06:00 ALT 26 U/L (7-56) 06/11/17 06:00 Alkaline Phosphatase 79 U/L (38-126) 06/11/17 06:00 Lactate Dehydrogenase 620 U/L (333-699) 06/05/17 19:40 Total Creatine Kinase 142 U/L (35-230) 06/05/17 19:40 Troponin I < 0.01 ng/mL 06/05/17 19:40 Total Protein 6.4 g/dL (5.8-8.3) 06/11/17 06:00 Albumin 3.3 g/dL (3.0-4.8) 06/11/17 06:00 Globulin 3.1 gm/dL 06/11/17 06:00 Albumin/Globulin Ratio 1.1 (1.1-1.8) 06/11/17 06:00 Triglycerides 353 mg/dL (35-160) H 06/07/17 06:30 Cholesterol 137 mg/dL (130-200) 06/06/17 06:54 LDL Cholesterol Direct < 30 mg/dL (0-129) 06/06/17 06:54 HDL Cholesterol 14 mg/dL (29-60) L 06/06/17 06:54 Amylase 50 U/L (35-125) 06/05/17 19:40 Lipase 151 U/L (23-300) 06/05/17 19:40 Venous Blood Potassium 5.1 mmol/L (3.6-5.2) 06/05/17 22:57 Urine Color Yellow (YELLOW) 06/07/17 18:56 Urine Appearance Clear (CLEAR) 06/07/17 18:56 Urine pH 7.5 (4.7-8.0) 06/07/17 18:56 Ur Specific [place] 1.010 (1.005-1.035) 06/07/17 18:56 Urine Protein Negative mg/dL (<30 mg/dL) 06/07/17 18:56 Urine Glucose (UA) >=1000 mg/dL (NEGATIVE) 06/07/17 18:56 Urine Ketones Negative mg/dL (NEGATIVE) 06/07/17 18:56 Urine Blood Negative (NEGATIVE) 06/07/17 18:56 Urine Nitrate Negative (NEGATIVE) 06/07/17 18:56 Urine Bilirubin Negative (NEGATIVE) 06/07/17 18:56 Urine Urobilinogen 0.2 E.U./dL (<1 E.U./dL) 06/07/17 18:56 Ur Leukocyte Esterase Negative [place]/uL (NEGATIVE) 06/07/17 18:56 Urine RBC 0 - 2 /hpf (0-2) 06/05/17 21:50 Urine WBC 1 - 3 /hpf (0-6) 06/05/17 21:50 Ur Epithelial Cells 0 - 2 /hpf (0-5) 06/05/17 21:50 Urine Bacteria Small (NEG) 06/05/17 21:50 - Hospital Course Hospital Course: This is a 42 year old male with a past medical history of chronic pancreatitis, pancreatic insufficiency, pancreatic cysts, Diabetes mellitus, hypertriglyceridemia who presents to the emergency department complaining of abdominal pain and vomiting for the past day and also reports difficultly swallowing anything by mouth for the past week. The patient also reports over 30 episodes of bilious vomiting before coming to the hospital. He reports this has happened before. He also reports dehydration in conjunction with initial symptoms. The patient also have an extremely elevated triglyceride level at admission (2049). The patient had a abdomen and pelvis ct done which showed a stable pancreatic cyst, mild hepatomegaly and mild hepatomegaly. The patient was given 3 liters of fluid, restarted home medications and started him on a insulin sliding scale. The triglyceride level was repeated and had decreased from admission. The patient The patient was seen by Surgery and GI during his stay. The patient's diet was slowly advanced. After tolerating a liquid diet he was advanced to soft diet and tolerated it well with no complications. The patient clinically was stable at bedside this morning. There was no indication for surgical intervention and GI agreed with plan. The patient was discharged with specific instructions to eat six small meals a day and to continue to advance his diet as tolerated. Discharge Exam - Head Exam Head Exam: ATRAUMATIC, NORMOCEPHALIC - Eye Exam Eye Exam: EOMI, Normal appearance, PERRL. absent: Periorbital tenderness Pupil Exam: NORMAL ACCOMODATION, PERRL. absent: Irregular, Miosis - ENT Exam ENT Exam: Mucous Membranes Moist - Respiratory Exam Respiratory Exam: Clear to PA & Lateral, NORMAL BREATHING PATTERN. absent: Accessory Muscle Use, Chest Wall Tenderness, Respiratory Distress - Cardiovascular Exam Cardiovascular Exam: REGULAR RHYTHM, RRR, +S1, +S2. absent: Gallop, Rubs - GI/Abdominal Exam GI & Abdominal Exam: Normal Bowel Sounds, Tenderness. absent: Organomegaly, Pulsatile Mass - Extremities Exam Extremities exam: full ROM - Back Exam Back exam: NORMAL INSPECTION. absent: paraspinal tenderness - Neurological Exam Neurological exam: Alert, CN II-XII Intact, Oriented x3 - Psychiatric Exam Psychiatric exam: Normal Affect, Normal Mood - Skin Skin Exam: Dry, Intact, Petechiae Discharge Plan - Discharge Medications Prescriptions: Blood Sugar Diagnostic, Drum [Accu-Chek Compact] 1 each MC DAILY #30 strip Insulin Human (NPH)/Regular [Novolin 70/30 (70/30 units/ml) 10 ml] 25 units SC BID #60 unit oxyCODONE/Acetaminophen [Percocet 5/325 mg Tab] 1 tab PO Q6 PRN #20 tab PRN Reason: Pain, Severe (8-10) - Follow Up Plan Condition: GOOD Disposition: HOME/ ROUTINE Referrals: Shani Atwood DO [Primary Care Provider] - Follow up with primary
[2017-06-11 16:54] VITALS: BP 122/97; PULSE 54; TEMP 97.8; O2SAT 98
== END 2017-06-11 19:10 | disposition home or self-care (01) | DRG 557 ==
LOC: ED 19:19 → ERH 21:00 → 5RSO 23:34 → 5RNO 06-06 13:38 → OBSVTOIN 06-07 07:22
PROVIDERS: ADMIT Hospitalist; ATTEND Internal Medicine
DX: K85.90 Acute pancreatitis without necrosis or infection, unspecified (principal); K86.1 Other chronic pancreatitis; B18.2 Chronic viral hepatitis C; K86.2 Cyst of pancreas; E11.65 Type 2 diabetes mellitus with hyperglycemia; I10 Essential (primary) hypertension; E78.5 Hyperlipidemia, unspecified; M19.90 Unspecified osteoarthritis, unspecified site; G89.29 Other chronic pain; E78.1 Pure hyperglyceridemia; K59.09 Other constipation; K21.9 Gastro-esophageal reflux disease without esophagitis; R16.0 Hepatomegaly, not elsewhere classified; Z91.14 Patient's other noncompliance with medication regimen; Z87.440 Personal history of urinary (tract) infections; Z90.49 Acquired absence of other specified parts of digestive tract

== ENCOUNTER 2017-12-01 15:03 | Inpatient (IN) | payer OTHER ==
[2017-12-01 15:31] VITALS: BMI 21.7
[2017-12-01] MEDS ORDERED: Sodium Chloride 0.9% 1,000 ML IV STA (15:44)
[2017-12-01] MEDS ORDERED: HYDROmorphone 1 mg/ml ISec IVP STA ×2 (15:46→17:21)
--- NOTE | 2017-12-01 15:50 | ED PDOC ---
Arrival/HPI - General Chief Complaint: Abdominal Pain Time Seen by Provider: 12/01/17 15:44 Historian: Patient, EMS - History of Present Illness Narrative History of Present Illness (Text): 12/01/17 15:47 pt p/w + ~ 2 days onset of epigastric pain, radiating to mid back, severe pain, at most pain is > 10/10; pt with prior hx of acute pancreatitis and pt states pain is similar; pt states numerous episodes of nausea/vomiting, at least 20episodes of vomiting/day; pt states biliary discoloration with vomiting; pt states no fever, + chills/shivering, no sweating, no sob/palpitations, no cp, no appetite, no numbness/tingling, no urinary changes, + constipation hx, + BM ( noted blood around the stool, hx of hemrrhoids); pt states no fall/trauma/sick contact, no traveling operator + severe weakness/lightheadedness, no LOC pt is here for further eval pt's without other complaints PCP: Dr Atwood GI: Dr Valentin pt had endoscopy/colonoscopy recently Time/Duration: < week (2 days) Symptom Onset: Sudden Symptom Course: Worsening Quality: Tightness, Stabbing, Cramping Severity Level: 10, Severe Activities at Onset: Rest Context: Home Past Medical History - Provider Review Nursing Documentation Reviewed: Yes - Travel History Have you recently traveled outside [place] w/in the past 3 mons?: No - Past History Past History: No Previous - Infectious Disease Hx of Infectious Diseases: None - Tetanus Immunization Tetanus Immunization: Unknown - Cardiac Hx Cardiac Disorders: Yes Hx Cardiac Arrhythmia: Yes (bradycardia) Hx Hypertension: Yes Hx Peripheral Vascular Disease: Yes - Pulmonary Hx Respiratory Disorders: Yes (chronic dry cough x 8 months since sx) - Neurological Hx Neurological Disorder: Yes Hx Dizziness: Yes (falls from dizziness since 2014) - HEENT Hx HEENT Disorder: Yes (blurry vision) Other/Comment: ho-chunk due to earwax - Renal Hx Renal Disorder: Yes Hx Kidney Stones: Yes - Endocrine/Metabolic Hx Endocrine Disorders: Yes Hx Diabetes Mellitus Type 1: Yes - Hematological/Oncological Hx Blood Disorders: Yes Hx Hepatitis C: Yes - Integumentary Hx Dermatological Disorder: Yes Other/Comment: chronic itchy skin since "surgery 8 months ago" - Musculoskeletal/Rheumatological Hx Falls: Yes ("dizzy and falling since 2013") - Gastrointestinal Hx Gastrointestinal Disorders: Yes (chronic constipation) Hx Gall Bladder Disease: Yes (gallstones) Hx Gastroesophageal Reflux: Yes Hx Pancreatitis: Yes - Genitourinary/Gynecological Hx Genitourinary Disorders: Yes (burning on urination "sometimes') Hx Urinary Tract Infection: Yes - Psychiatric Hx Depression: Yes Hx Substance Use: No - Surgical History Hx Appendectomy: Yes Hx Cholecystectomy: Yes Other/Comment: 2009 in [place] ap ruptured damagec pancreas, had sx on pancreas and gb sx at [facility] 8 months ago - Anesthesia Hx Anesthesia: Yes - Suicidal Assessment Feels Threatened In Home Enviroment: No Family/Social History - Physician Review Nursing Documentation Reviewed: Yes Family/Social History: No Known Family HX Smoking Status: Heavy Smoker > 10 Cigarettes Daily Hx Alcohol Use: No Hx Substance Use: No Hx Substance Use Treatment: No Allergies/Home Meds Allergies/Adverse Reactions: Allergies dy Allergy (Mild, Uncoded 04/25/17 13:16) ITCHING hair color dye Allergy (Uncoded 04/25/17 13:16) RASH Home Medications: Home Meds Medication Instructions Recorded Confirmed RX: Colesevelam HCl [Welchol] 625 mg PO BID 01/25/17 12/01/17 RX: Polyethylene Glycol 3350 17 gm PO DAILY PRN 05/01/17 12/01/17 [Miralax] Review of Systems - Review of Systems Constitutional: Fatigue, Night Sweats. absent: Fevers Eyes: Normal ENT: Normal Respiratory: Normal Cardiovascular: Normal Gastrointestinal: Abdominal Pain, Constipation, Nausea, Vomiting, Appetite Changes Genitourinary Male: Normal Musculoskeletal: Normal Skin: Normal Neurological: Dizziness. absent: Headache Endocrine: Normal Hemo/Lymphatic: Normal Psychiatric: Normal Physical Exam Vital Signs Reviewed: Yes Vital Signs Temp Pulse Resp BP Pulse Ox 12/01/17 21:18 61 16 137/82 99 12/01/17 19:36 59 L 17 136/80 98 12/01/17 17:18 139/84 12/01/17 17:08 63 17 100 12/01/17 15:04 98.9 F 55 L 19 163/92 H 100 Temperature: Afebrile Blood Pressure: Normal Pulse: Regular Respiratory Rate: Normal Appearance: Positive for: Uncomfortable, Other (resting in bed, uncomfortable, severe distress due to pain; alert/awake, cooperative, follows command with ease ) Pain Distress: Severe Mental Status: Positive for: Alert and Oriented X 3 - Systems Exam Head: Present: Atraumatic, Normocephalic Pupils: Present: PERRL, Other (visual field intact b/l, no nystagmus, no photophobia) Extroacular Muscles: Present: EOMI Conjunctiva: Present: Other (slightly icteric) Ears: Present: Normal Mouth: Present: Normal Teeth, Other (mild dry oral mucosa, fair dentitions, no drooling/stridor, no exudate/lesions) Pharnyx: Present: Normal Nose (External): Present: Atraumatic Nose (Internal): Present: Normal Inspection Neck: Present: Normal Range of Motion, Trachea Midline, Other (no nuchal rigidity, no meningeal signs, no midline tenderness, no step off). No: MIDLINE TENDERNESS Respiratory/Chest: Present: Clear to Auscultation, Good Air Exchange, Other ( CTA b/l, no w/r/r) Cardiovascular: Present: Regular Rate and Rhythm, Normal S1, S2. No: Murmurs Abdomen: Present: Tenderness, Normal Bowel Sounds, Other (thin male, + diffuse mid abd tenderness, no denny's sign, no mcburney's point tenderness, no masses/ rebound/gaurding/rigidity) Back: Present: Normal Inspection. No: CVA Tenderness, Midline Tenderness Upper Extremity: Present: Normal Inspection, Normal ROM, NORMAL PULSES, Neurovascularly Intact, Capillary Refill < 2s Lower Extremity: Present: Normal Inspection, NORMAL PULSES, Normal ROM, Neurovascularly Intact, Capillary Refill < 2 s Neurological: Present: GCS=15, CN II-XII Intact, Speech Normal Skin: Present: Warm, Normal Color, Other (cap refill ~ 1 sec, no ulcerations, no petechiae, mild pallor) Psychiatric: Present: Alert, Oriented x 3 Medical Decision Making ED Course and Treatment: 12/01/17 15:35 Impression: acute mid abd pain i have consider all the differential diagnosis regarding pt's chief medical complaints/clinical findings, including but are not limited to: r/o obstruction/ r/o pancreatitis, r/o infection A/P: mid abd pain - iv - ct - labs - ua - observe - supportive care 12/01/17 17:22 pt continued to have abd pain, but slightly more tolerable after medications pt is awaiting further lab results pt is awaiting CT results 12/01/17 1825 hospitalists transfer controller contacted, dr Jarvis made aware, agrees with admission, would like her team to be notified when the CT results are done 19:05 Ct is done, and hospitalists/medical artist team are made aware, will see patient, will admit patient pt continues to have abd pain pt is not nauseous currently pt is made aware of his medical results pt agrees with admission Re-evaluation Time: 17:15 Reassessment Condition: Improving,but remains with symptoms - Lab Interpretations Lab Results: 12/01/17 16:00 12/01/17 16:00 Lab Results 12/01/17 16:00: Phosphorus 3.8, Magnesium 1.8 12/01/17 16:00: pO2 34, VBG pH 7.33, VBG pCO2 49.0, VBG HCO3 25.8, VBG Total CO2 27.3, VBG O2 Sat (Calc) 71.5 H, VBG Base Excess -0.7 L, VBG Potassium 5.0, Sodium 134.0, Chloride 101.0, Glucose 374 H, Lactate 1.2, FiO2 21.0, Venous Blood Potassium 5.0 12/01/17 16:00: Sodium 135, Chloride 99, Potassium 5.5 H, Carbon Dioxide 22, Anion Gap 19, BUN 8, Creatinine 0.5 L, Est GFR ( Amer) > 60, Est GFR (Non -Af Amer) > 60, Random Glucose 327 H* D, Calcium 9.5, Total Bilirubin 1.2, AST 37, ALT 41, Alkaline Phosphatase 114, Total Protein 7.8, Albumin 4.1, Globulin 3.7, Albumin/Globulin Ratio 1.1, Lipase 112 12/01/17 16:00: PT 11.6, INR 1.02, APTT 32.7 12/01/17 16:00: WBC 9.7 D, RBC 5.24, Hgb 14.8 D, Hct 38.8 L, MCV 74.0 L, MCH 28.2, MCHC 38.1 H, RDW 16.0 H, Plt Count 215, Gran % 85.7 H, Lymph % (Auto) 11.9 L, [place] % (Auto) 2.1, Eos % (Auto) 0.1 L, Baso % (Auto) 0.2, Gran # 8.34 H , Lymph # (Auto) 1.2, [place] # (Auto) 0.2, Eos # (Auto) 0.0, Baso # (Auto) 0.02 I have reviewed the lab results: Yes Interpretation: Abnormal lab values (elevated GLUC) - RAD Interpretation Narrative RAD Interpretations (Text): 12/02/17 08:36 PROCEDURE: CT Abdomen and Pelvis with contrast HISTORY: epigastric pain/hx of pancreatitis/hep C COMPARISON: 06/09/2017 TECHNIQUE: Contrast dose: 100 mL Omnipaque 350 Radiation dose: Total exam DLP = 291.84 mGy-cm. This CT exam was performed using one or more of the following dose reduction techniques: Automated exposure control, adjustment of the mA and/or kV according to patient size, and/or use of iterative reconstruction technique. FINDINGS: LOWER THORAX: Unremarkable. LIVER: Mild hepatomegaly. Liver measures 21 cm craniocaudal. Smooth contour. No mass. No biliary ductal dilatation. GALLBLADDER AND BILE DUCTS: Status post cholecystectomy. There is a cystic structure in the cole hepatis region, unchanged from prior examination. This is immediately adjacent to a metallic clip. Uncertain significance. PANCREAS: There is suspicion of an enhancing mass in the pancreatic head measuring approximately 3.0 x 3.6 by 3.6 cm. There is a cyst/cystic mass in the pancreatic body measuring 1.3 x 2.2 cm. There is a cyst/cystic mass in the pancreatic tail measuring 3.3 x 3.9 cm. There is no pancreatic ductal dilatation appreciated. No evidence of acute pancreatitis. SPLEEN: Mild splenomegaly. The spleen measures 14 cm in greatest dimension. No focal mass. ADRENALS: Unremarkable. No mass. KIDNEYS AND URETERS: Unremarkable. No hydronephrosis. No solid mass. VASCULATURE: Extensive left upper quadrant varices, gastric varices and also noted are distal esophageal varices. Please note that the portal vein enhances. The splenic vein is not identified and there may be a splenic venous thrombosis although the splenic vein is not identified in this examination. This may reflect chronic splenic venous thrombosis. BOWEL: There is extensive mural thickening of the distal gastric antrum and there is mild mural thickening of the duodenum as well, most prominently the 1st and 2nd portions. No bowel obstruction. Mild sigmoid diverticulosis. No evidence of diverticulitis. APPENDIX: Not identified PERITONEUM: Unremarkable. No free fluid. No free air. LYMPH NODES: Unremarkable. No enlarged lymph nodes. BLADDER: Unremarkable. REPRODUCTIVE: Normal prostate BONES: No acute fracture. OTHER FINDINGS: None. IMPRESSION: Suspect solid enhancing mass in the pancreatic head. Two cyst/cystic masses in the pancreatic body/ tail. No evidence of acute pancreatitis. Possible chronic splenic venous thrombosis. Portal vein appears patent. Extensive gastric varices with left upper quadrant varices and distal esophageal varices noted. Nonspecific antritis and duodenitis. Radiology Orders: 12/01/17 15:45 ABD & PELVIS IV CONTRAST ONLY [CT] Stat Production Sampler: Radiologist - EKG Interpretation EKG Interpretation (Text): 12/01/17 17:23 Sinus savanah at 55 bpm, LAD, poor baseline, no ectopy, qs in leads III/F, V1, no st changes, ABNL EKG; unchanged compare with old ekg 05/2017 Interpreted by ED Physician: Yes Type: 12 lead EKG Comparison: Similar to previous EKG - Medication Orders Current Medication Orders: Gemfibrozil (Lopid) 600 mg PO BID DO Lactated Ringer's (Lactated Ringer's) 1,000 mls @ 150 mls/hr IV .Q6H40M DO Last Admin: 12/02/17 04:03 Dose: 150 mls/hr eMAR Start Stop Document 12/02/17 04:03 MJ (Rec: 12/02/17 04:04 MJ [facility] [place] [place]) Intravenous Solution Start Date 12/02/17 Start Time 03:30 Insulin Human Lispro (Humalog Med) 0 units SC Q6H DO PRN Reason: Protocol Last Admin: 12/02/17 08:25 Dose: 3 units MAR Blood Glucose Document 12/02/17 08:25 MJ (Rec: 12/02/17 08:26 MJ [facility] [place] [place]) Blood Glucose Finger Stick Blood Glucose (70-120) 204 Subcutaneous Administrations Document 12/02/17 08:25 MJ (Rec: 12/02/17 08:26 MJ [facility] [place] [place]) Injection Site MAR Injection Site Right Arm Charges for Administration # of Subcutaneous Administrations 1 Morphine Sulfate (Morphine) 2 mg IVP Q4H PRN PRN Reason: Pain, severe (8-10) Last Admin: 12/02/17 06:02 Dose: 2 mg MAR Pain Assessment Document 12/02/17 06:02 MJ (Rec: 12/02/17 06:02 [id number] Pain Reassessment Is this a pain reassessment? No Sleep Is patient sleeping during reassessment? No Presence of Pain Presence of Pain Yes Pain Scale Used Pain Scale Used Numeric Location Pain Location Body Site Abdomen Description Description Constant Intensity of Pain at present 8 Pain Behavior Moaning Alleviating Factors/Management Medication Techniques Alleviating Factors Medication IVP Administration Document 12/02/17 06:02 MJ (Rec: 12/02/17 06:02 [id number] Charges for Administration # of IVP Administrations 1 Re-Assess: [facility] Pain Assessment Document 12/02/17 07:02 MJ (Rec: 12/02/17 07:38 [id number]) Pain Reassessment Is this a pain reassessment? Yes Sleep Is patient sleeping during reassessment? Yes Colesevelam Hcl [ (Welchol] 625 Mg) 625 mg PO BID DO Lipase/Protease/Amylase [Creon Dr 36 ,000 Units Capsule] 1 each PO TID DO Ondansetron HCl (Zofran Inj) 4 mg IVP Q6H PRN PRN Reason: Nausea/Vomiting Last Admin: 12/02/17 06:01 Dose: 4 mg IVP Administration Document 12/02/17 06:01 MJ (Rec: 12/02/17 06:01 [id number] Charges for Administration # of IVP Administrations 1 Pantoprazole Sodium (Protonix Inj) 40 mg IVP DAILY DO Polyethylene Glycol (Miralax) 17 gm PO DAILY PRN PRN Reason: Constipation Discontinued Medications Diphenhydramine HCl (Benadryl) 25 mg PO ONCE ONE Stop: 12/01/17 22:59 Last Admin: 12/01/17 23:09 Dose: 25 mg Famotidine (Pepcid) 20 mg IVP STAT STA Stop: 12/01/17 15:45 Last Admin: 12/01/17 16:21 Dose: 20 mg IVP Administration Document 12/01/17 16:21 MS (Rec: 12/01/17 16:21 MS [id number]) Charges for Administration # of IVP Administrations 1 Hydromorphone HCl (Dilaudid) 1 mg IVP STAT STA Stop: 12/01/17 15:47 Last Admin: 12/01/17 16:15 Dose: 1 mg MAR Pain Assessment Document 12/01/17 16:15 MS (Rec: 12/01/17 16:19 MS [id number]) Pain Reassessment Is this a pain reassessment? No Sleep Is patient sleeping during reassessment? No Presence of Pain Presence of Pain Yes Pain Scale Used Pain Scale Used Numeric Location Pain Location Body Site Abdomen Description Description Constant Intensity of Pain at present 10 Pain Behavior Moaning Crying Facial Grimacing IVP Administration Document 12/01/17 16:15 MS (Rec: 12/01/17 16:19 MS [id number]) Charges for Administration # of IVP Administrations 1 Hydromorphone HCl (Dilaudid) 1 mg IVP STAT STA Stop: 12/01/17 17:22 Last Admin: 12/01/17 18:50 Dose: 1 mg MAR Pain Assessment Document 12/01/17 18:50 SF (Rec: 12/01/17 18:50 [id number] Pain Reassessment Is this a pain reassessment? Yes Sleep Is patient sleeping during reassessment? No Presence of Pain Presence of Pain Yes IVP Administration Document 12/01/17 18:50 SF (Rec: 12/01/17 18:50 [id number] Charges for Administration # of IVP Administrations 1 Sodium Chloride (Sodium Chloride 0.9%) 1,000 mls @ 1,000 mls/hr IV .Q1H STA Stop: 12/01/17 16:43 Last Admin: 12/01/17 16:19 Dose: 1,000 mls/hr eMAR Start Stop Document 12/01/17 16:19 MS (Rec: 12/01/17 16:21 MS [id number]) Intravenous Solution Start Date 12/01/17 Start Time 16:21 End Date 12/01/17 End time 17:21 Total Infusion Time 60 Sodium Chloride (Sodium Chloride 0.9%) 1,000 mls @ 100 mls/hr IV .Q10H [facility] Last Admin: 12/01/17 19:43 Dose: 100 mls/hr eMAR Start Stop Document 12/01/17 19:43 SF (Rec: 12/01/17 19:43 [id number] Intravenous Solution Start Date 12/01/17 Start Time 19:43 Sodium Chloride (Sodium Chloride 0.9%) 1,000 mls @ 100 mls/hr IV .Q10H DO Last Admin: 12/01/17 19:41 Dose: Insulin Human Regular (Humulin R) 8 units IVP ONCE ONE Stop: 12/01/17 17:21 Last Admin: 12/01/17 18:52 Dose: 8 units MAR Blood Glucose Document 12/01/17 18:52 SF (Rec: 12/01/17 18:52 [id number] Blood Glucose Finger Stick Blood Glucose (70-120) 277 IVP Administration Document 12/01/17 18:52 SF (Rec: 12/01/17 18:52 [facility] Charges for Administration # of IVP Administrations 1 Ondansetron HCl (Zofran Inj) 4 mg IVP STAT STA Stop: 12/01/17 15:45 Last Admin: 12/01/17 16:21 Dose: 4 mg IVP Administration Document 12/01/17 16:21 MS (Rec: 12/01/17 16:21 MS [id number]) Charges for Administration # of IVP Administrations 1 Ondansetron HCl (Zofran Inj) 4 mg IVP STAT STA Stop: 12/01/17 19:05 Last Admin: 12/01/17 20:10 Dose: 4 mg IVP Administration Document 12/01/17 20:10 SF (Rec: 12/01/17 20:35 [id number] Charges for Administration # of IVP Administrations 1 Sodium Polystyrene Sulfonate (Kayexalate Susp) 15 gm PO STAT STA Stop: 12/01/17 20:54 Last Admin: 12/02/17 08:07 Dose: Disposition/Present on Arrival - Present on Arrival Any Indicators Present on Arrival: No History of DVT/PE: Yes History of Uncontrolled Diabetes: Yes Urinary Catheter: No History of Decub. Ulcer: No History Surgical Site Infection Following: None - Disposition Have Diagnosis and Disposition been Completed?: Yes Diagnosis: Intractable epigastric abdominal pain, Pancreatic abnormality, Acute hyperglycemia, Nausea & vomiting, Dehydration Disposition: HOSPITALIZED Disposition Time: 19:00 Patient Plan: Admission, Observation Condition: STABLE
[2017-12-01 16:35] LABS: VENOUS BLOOD GAS BASE EXCESS -0.7 mmol/L (0.0-2.0); VENOUS BLOOD GAS PO2 34 mm/Hg (30-55); VENOUS BLOOD PH 7.33 (7.32-7.43)
[2017-12-01 16:36] LABS: BASO # 0.02 K/mm3 (0.0-2.0); BASO % 0.2 % (0.0-3.0); EOS % 0.1 % (1.5-5.0); GRAN # 8.34 (1.4-6.5); GRAN % 85.7 % (50.0-68.0); LYMPH # 1.2 (1.2-3.4); LYMPH % 11.9 % (22.0-35.0); MEAN CORPUSCULAR HEMOGLOBIN 28.2 pg (25.0-35.0); MEAN CORPUSCULAR HGB CONC 38.1 g/dl (31.0-37.0); MONO # 0.2 (0.1-0.6); MONO % 2.1 % (1.0-6.0); PLATELET COUNT 215 10^3/uL (120.0-450.0); RBC 5.24 10^6/uL (3.5-6.1); WHITE BLOOD COUNT 9.7 10^3/ul (4.5-11.0)
[2017-12-01 16:47] LABS: HEMOGLOBIN 14.8 g/dL (14.0-18.0)
[2017-12-01 16:48] LABS: PROTHROMBIN TIME 11.6 SECONDS (9.4-12.5)
[2017-12-01 16:49] LABS: INR 1.02 (0.93-1.08); PARTIAL THROMBOPLASTIN TIME 32.7 Seconds (25.1-36.5)
[2017-12-01 16:59] LABS: ALB/GLOB RATIO 1.1 (1.1-1.8); ALBUMIN 4.1 g/dL (3.0-4.8); ALT/SGPT 41 U/L (7-56); AST/SGOT 37 U/L (17-59); BLOOD UREA NITROGEN 8 mg/dL (7-21); CALCIUM 9.5 mg/dL (8.4-10.5); GFR AFRICAN-AMERICAN > 60; GFR NON-AFRICAN AMERICAN > 60; LIPASE 112 U/L (23-300)
[2017-12-01] MEDS ORDERED: Insulin Regular 1 UNITS/0.01 ML ML IVP ONE (17:20)
[2017-12-01] MEDS ORDERED: Iohexol 350 MG/100 ML VIAL ONE ×2 (17:33→17:35)
[2017-12-01] MEDS ORDERED: Sodium Chloride 0.9% 1,000 ML IV SCH ×2 (19:00→19:15)
--- NOTE | 2017-12-01 19:00 | CT ---
PROCEDURE: CT Abdomen and Pelvis with contrast HISTORY: epigastric pain/hx of pancreatitis/hep C COMPARISON: 06/09/2017 TECHNIQUE: Contrast dose: 100 mL Omnipaque 350 Radiation dose: Total exam DLP = 291.84 mGy-cm. This CT exam was performed using one or more of the following dose reduction techniques: Automated exposure control, adjustment of the mA and/or kV according to patient size, and/or use of iterative reconstruction technique. FINDINGS: LOWER THORAX: Unremarkable. LIVER: Mild hepatomegaly. Liver measures 21 cm craniocaudal. Smooth contour. No mass. No biliary ductal dilatation. GALLBLADDER AND BILE DUCTS: Status post cholecystectomy. There is a cystic structure in the cole hepatis region, unchanged from prior examination. This is immediately adjacent to a metallic clip. Uncertain significance. PANCREAS: There is suspicion of an enhancing mass in the pancreatic head measuring approximately 3.0 x 3.6 by 3.6 cm. There is a cyst/cystic mass in the pancreatic body measuring 1.3 x 2.2 cm. There is a cyst/cystic mass in the pancreatic tail measuring 3.3 x 3.9 cm. There is no pancreatic ductal dilatation appreciated. No evidence of acute pancreatitis. SPLEEN: Mild splenomegaly. The spleen measures 14 cm in greatest dimension. No focal mass. ADRENALS: Unremarkable. No mass. KIDNEYS AND URETERS: Unremarkable. No hydronephrosis. No solid mass. VASCULATURE: Extensive left upper quadrant varices, gastric varices and also noted are distal esophageal varices. Please note that the portal vein enhances. The splenic vein is not identified and there may be a splenic venous thrombosis although the splenic vein is not identified in this examination. This may reflect chronic splenic venous thrombosis. BOWEL: There is extensive mural thickening of the distal gastric antrum and there is mild mural thickening of the duodenum as well, most prominently the 1st and 2nd portions. No bowel obstruction. Mild sigmoid diverticulosis. No evidence of diverticulitis. APPENDIX: Not identified PERITONEUM: Unremarkable. No free fluid. No free air. LYMPH NODES: Unremarkable. No enlarged lymph nodes. BLADDER: Unremarkable. REPRODUCTIVE: Normal prostate BONES: No acute fracture. OTHER FINDINGS: None. IMPRESSION: Suspect solid enhancing mass in the pancreatic head. Two cyst/cystic masses in the pancreatic body/ tail. No evidence of acute pancreatitis. Possible chronic splenic venous thrombosis. Portal vein appears patent. Extensive gastric varices with left upper quadrant varices and distal esophageal varices noted. Nonspecific antritis and duodenitis.
[2017-12-01] MEDS: Insulin Lispro (humaLOG) MEDIUM Coverage SC SCH (19:41)
[2017-12-01] MEDS: Lactated Ringer's 1,000 ML IV SCH (20:35)
--- NOTE | 2017-12-01 20:40 | CP.PCM.HP ---
History of Present Illness - History of Present Illness History of Present Illness: Medicine H/P for Dr. Lucius Jarvis CC: Abdominal pain, vomiting HPI: 42 yo M with PMH of HCV, Arthritis, chronic pancreatitis, pancreatic cysts , DM, hypertriglyceridemia who presented to the ED with complaints of abdominal pain, 2 days of vomiting, and bloody bowel movements because of his hemorrhoids. He reports 30-40 episodes of green liquid vomiting. He has had the abdominal pain for two days and has been nauseous, unable to tolerate PO food. Patient has been seen here several times for chronic pancreatitis, and states that his symptoms are similar to past episodes. Patient denies fever, chills, chest pain, SOB, constipation, and urinary symptoms. PMH: Hepatitis C, Chronic Pancreatitis, DM, HLD, Arthritis, chronic back pain PSH: Appendectomy, Cholecystectomy, Pancreatic Pseudocyst resection Family: Mother-Bone Cancer, Father- from [place] at 53 Social: Current 3 cigars daily, denies alcohol or illicit drug use; lives alone Allergy: Hair Dye Home meds: As per NOV ROS: 12 point ROS is negative except HPI. Present on Admission - Present on Admission Any Indicators Present on Admission: No Past Patient History - Infectious Disease Hx of Infectious Diseases: None - Tetanus Immunizations Tetanus Immunization: Unknown - Past Medical History & Family History Past Medical History?: Yes - Past Social History Smoking Status: Heavy Smoker > 10 Cigarettes Daily - CARDIAC Hx Cardiac Disorders: Yes Hx Cardia Arrhythmia: Yes (bradycardia) Hx Hypertension: Yes Hx Peripheral Vascular Disease: Yes - PULMONARY Hx Respiratory Disorders: Yes (chronic dry cough x 8 months since sx) - NEUROLOGICAL Hx Neurological Disorder: Yes Hx Dizziness: Yes (falls from dizziness since 2013) - HEENT Hx HEENT Problems: Yes (blurry vision) Other/Comment: [place] due to earwax - RENAL Hx Chronic Kidney Disease: Yes Hx Kidney Stones: Yes - ENDOCRINE/METABOLIC Hx Endocrine Disorders: Yes Hx Diabetes Mellitus Type 1: Yes - HEMATOLOGICAL/ONCOLOGICAL Hx Blood Disorders: Yes Hx Hepatitis C: Yes - INTEGUMENTARY Hx Dermatological Problems: Yes Other/Comment: chronic itchy skin since "surgery 8 months ago" - MUSCULOSKELETAL/RHEUMATOLOGICAL Hx Falls: Yes ("dizzy and falling since 2013") - GASTROINTESTINAL Hx Gastrointestinal Disorders: Yes (chronic constipation) Hx Gall Bladder Disease: Yes (gallstones) Hx Gastroesophageal Reflux: Yes Hx Pancreatitis: Yes - GENITOURINARY/GYNECOLOGICAL Hx Genitourinary Disorders: Yes (burning on urination "sometimes') Hx Urinary Tract Infection: Yes - PSYCHIATRIC Hx Depression: Yes Hx Substance Use: No - SURGICAL HISTORY Hx Appendectomy: Yes Hx Cholecystectomy: Yes Other/Comment: 2009 in [place] ap ruptured damagec pancreas, had sx on pancreas and gb sx [facility] 8 months ago - ANESTHESIA Hx Anesthesia: Yes Meds Allergies/Adverse Reactions: Allergies Allergy/AdvReac Type Severity Reaction Status Date / Time dy Allergy Mild ITCHING Uncoded 04/25/17 13:16 hair color dye Allergy RASH Uncoded 04/25/17 13:16 Physical Exam - Constitutional Appears: No Acute Distress, Cachectic, Chronically Ill - Head Exam Head Exam: ATRAUMATIC, NORMAL INSPECTION, NORMOCEPHALIC - Eye Exam Eye Exam: EOMI, Normal appearance, PERRL Pupil Exam: NORMAL ACCOMODATION, PERRL - ENT Exam ENT Exam: Mucous Membranes Moist, Normal Exam - Neck Exam Neck exam: Positive for: Normal Inspection - Respiratory Exam Respiratory Exam: Clear to Auscultation Bilateral, NORMAL BREATHING PATTERN - Cardiovascular Exam Cardiovascular Exam: REGULAR RHYTHM - GI/Abdominal Exam GI & Abdominal Exam: Normal Bowel Sounds, Soft. absent: Tenderness Additional comments: Exquisite TTP diffusely in all quadrants - Rectal Exam Additional comments: Gross blood; hemorrhoids externally palpated - Extremities Exam Extremities exam: Positive for: normal inspection - Back Exam Back exam: NORMAL INSPECTION - Neurological Exam Neurological exam: Alert, CN II-XII Intact, Normal Gait, Oriented x3, Reflexes Normal - Psychiatric Exam Psychiatric exam: Normal Affect, Normal Mood - Skin Skin Exam: Dry, Intact, Normal Color, Warm Results - Vital Signs Recent Vital Signs: Last Vital Signs Temp 98.9 F 12/01/17 15:04 Pulse 59 L 12/01/17 19:36 Resp 17 12/01/17 19:36 BP 136/80 12/01/17 19:36 Pulse Ox 98 12/01/17 19:36 - Labs Result Diagrams: 12/01/17 16:00 12/01/17 16:00 Assessment & Plan - Assessment and Plan (Free Text) Assessment: 42 year old male with a past medical history of Hep C, Arthritis, chronic pancreatitis with insufficiency, pancreatic cysts, DM, hypertriglyceridemia, who presented to the ED with complaints of nausea, vomiting, and diffuse abdominal pain. Abdominal pain possibly secondary to acute on chronic pancreatitis VS gastritis VS gastroparesis -CT Abdomen Pelvis shows: Mass enhancing lesion in pancreatic head; splenic venous thrombosis; cysts in body/tail Mass enhancing lesion in head is a new finding, not present on previous studies in May and March 2017 -Cont home pancreatic enzymes -Morphine 2mg q4h prn for pain control, LR @ 150 for fluid resuscitation, Zofran prn for n/v -GI consult: Dr. Cadet -Consider Heme/Onc consult for new mass enhancing lesion, leave up to day team Diabetes Mellitus -RISS medium -Fingersticks q6h Hyperkalemia - K+ 5.5 - gave kayexalate History of Hypertriglyceridemia -Continue aggressive IVF hydration -Cont home Lopid and colesevelam AM Labs Follow Up CMP CBC FT4 Hgb A1C Lipid Panel Mg Phos TSH GI/DVT PPx - SCDs, Protonix
[2017-12-01] MEDS ORDERED: POLYETHYLENE GLYCOL 3350 17 GM/Dose PACKET PO PRN (20:46)
[2017-12-01 20:51] LABS: URINE BILIRUBIN NEGATIVE (NEGATIVE); URINE BLOOD NEGATIVE (NEGATIVE); URINE GLUCOSE (UA) >=1000 mg/dL (NEGATIVE); URINE LEUKOCYTE ESTERASE NEGATIVE Leu/uL (NEGATIVE); URINE PROTEIN TRACE mg/dL (<30 mg/dL); URINE UROBILINOGEN 0.2 E.U./dL (<1 E.U./dL)
[2017-12-01 20:52] LABS: URINE APPEARANCE CLEAR (CLEAR); URINE COLOR YELLOW (YELLOW)
[2017-12-01] MEDS ORDERED: Sod Polystyrene Sulf 15 gm/60 ml Susp PO STA (20:53)
[2017-12-01 20:55] LABS: URINE RBC 0 - 2 /hpf (0-2); URINE WBC 0 - 2 /hpf (0-6)
[2017-12-01] MEDS: Morphine 2 mg/ml ISec IVP PRN (22:14)
[2017-12-02] MEDS: Morphine 2 mg/ml ISec IVP PRN ×3 (01:47→10:25)
[2017-12-02] MEDS: Insulin Lispro (humaLOG) MEDIUM Coverage SC SCH ×4 (04:02→22:06)
[2017-12-02] MEDS: Lactated Ringer's 1,000 ML IV SCH ×3 (04:03→19:49)
[2017-12-02 08:39] LABS: BASO # 0.04 K/mm3 (0.0-2.0); BASO % 0.8 % (0.0-3.0); EOS # 0.1 (0.0-0.7); EOS % 1.8 % (1.5-5.0); GRAN # 2.88 (1.4-6.5); HEMOGLOBIN 11.8 g/dL (14.0-18.0); LYMPH # 1.9 (1.2-3.4); LYMPH % 36.1 % (22.0-35.0); MEAN CELL VOLUME 74.2 fl (80.0-105.0); MEAN CORPUSCULAR HGB CONC 35.1 g/dl (31.0-37.0); MEAN PLATELET VOLUME 11.5 fl (7.0-11.0); MONO # 0.3 (0.1-0.6); MONO % 5.3 % (1.0-6.0); RBC 4.53 10^6/uL (3.5-6.1); RED CELL DISTRIBUTION WIDTH 15.3 % (11.5-14.5); WHITE BLOOD COUNT 5.1 10^3/ul (4.5-11.0)
[2017-12-02 09:01] LABS: ALBUMIN 3.1 g/dL (3.0-4.8); ALT/SGPT 37 U/L (7-56); AST/SGOT 23 U/L (17-59); BLOOD UREA NITROGEN 8 mg/dL (7-21); CALCIUM 8.9 mg/dL (8.4-10.5); GFR AFRICAN-AMERICAN > 60; GFR NON-AFRICAN AMERICAN > 60; HDL CHOLESTEROL 16 mg/dL (29-60)
[2017-12-02 09:09] LABS: LDL CHOLESTEROL < 30 mg/dL (0-129)
[2017-12-02] MEDS: Colesevelam Hcl [Welchol] 625 MG PO SCH ×2 (09:22→18:25)
[2017-12-02 09:36] LABS: FREE T4 1.41 ng/dL (0.78-2.19)
[2017-12-02] MEDS ORDERED: Lipase/Protease/Amylase [Creon Dr 36,000 Units Capsule] PO SCH (10:00)
--- NOTE | 2017-12-02 10:34 | CARD ---
APPROVED REPORT EKG Measurement Heart [id number] <Conclusion> Sinus bradycardia Left axis deviation/LAHB No change
[2017-12-02] MEDS ORDERED: Insulin Lispro (humaLOG) MEDIUM Coverage SC SCH ×2 (11:30→12:00)
--- NOTE | 2017-12-02 11:35 | CP.PCM.PN ---
<Esme Morejon - Last Filed: 12/02/17 11:27> Subjective - Date & Time of Evaluation Date of Evaluation: 12/02/17 Time of Evaluation: 07:30 - Subjective Subjective: Esme Morejon DO PGY1 - IM Progress Note Patient seen and examined at bedside. Per nursing staff, no acute events overnight. Patient continues to complain of abdominal pain and nausea, though hasn't vomited today. Patient tolerated clear liquid breakfast, but is now severely nauseous. Patient also reports heartburn. Denies fever, chills, diarrhea. Does report some constipation. Denies hemoptysis or hematemesis. Objective - Vital Signs/Intake and Output Vital Signs (last 24 hours): Temp Pulse Resp BP Pulse Ox 98.6 F 64 18 126/77 99 12/02/17 07:30 12/02/17 07:30 12/02/17 07:30 12/02/17 07:30 12/02/17 07:30 - Medications Medications: Current Medications Gemfibrozil (Lopid) 600 mg PO BID [facility] Last Admin: 12/02/17 09:23 Dose: 600 mg Lactated Ringer's (Lactated Ringer's) 1,000 mls @ 150 mls/hr IV .Q6H40M [facility] Last Admin: 12/02/17 10:27 Dose: 150 mls/hr Insulin Human Lispro (Humalog Med) 0 units SC ACHS [facility] Metoclopramide HCl (Reglan) 5 mg IVP AC [facility] Colesevelam Hcl [ (Welchol] 625 Mg) 625 mg PO BID [facility] Last Admin: 12/02/17 09:22 Dose: Not Given Lipase/Protease/Amylase [Kiel Leal 36 ,000 Units Capsule] 1 each PO TID [facility] Oxycodone/Acetaminophen (Percocet 5/325 Mg Tab) 1 tab PO Q4H PRN PRN Reason: Pain, severe (8-10) Stop: 12/05/17 10:52 Pantoprazole Sodium (Protonix Inj) 40 mg IVP DAILY [facility] Last Admin: 12/02/17 09:24 Dose: 40 mg Polyethylene Glycol (Miralax) 17 gm PO DAILY PRN PRN Reason: Constipation - Labs Labs: 12/02/17 08:27 12/02/17 08:27 PT 11.6 SECONDS (9.4-12.5) 12/01/17 16:00 INR 1.02 (0.93-1.08) 12/01/17 16:00 APTT 32.7 Seconds (25.1-36.5) 12/01/17 16:00 - Constitutional Appears: Non-toxic, In Acute Distress (mild), Chronically Ill - Head Exam Head Exam: ATRAUMATIC, NORMOCEPHALIC - Eye Exam Eye Exam: EOMI, Normal appearance, PERRL - ENT Exam ENT Exam: Mucous Membranes Moist - Neck Exam Neck Exam: Full ROM, Normal Inspection - Respiratory Exam Respiratory Exam: Clear to Ausculation Bilateral, NORMAL BREATHING PATTERN - Cardiovascular Exam Cardiovascular Exam: RRR, +S1, +S2 - GI/Abdominal Exam GI & Abdominal Exam: Soft, Tenderness (Mild, diffuse, worst in LUQ), Normal Bowel Sounds. absent: Distended, Firm, Guarding, Rigid, Rebound - Extremities Exam Extremities Exam: absent: Calf Tenderness, Pedal Edema - Neurological Exam Neurological Exam: Alert, Awake, Oriented x3 - Psychiatric Exam Psychiatric exam: Normal Affect, Normal Mood - Skin Skin Exam: Dry, Intact Assessment and Plan - Assessment and Plan (Free Text) Assessment: 42 year old male with a past medical history of Hep C, Arthritis, chronic pancreatitis with insufficiency, pancreatic cysts, DM, hypertriglyceridemia, who presented to the ED with complaints of nausea, vomiting, and diffuse abdominal pain. Plan: Abdominal pain and nausea/vomiting - Likely 2/2 to acute on chronic pancreatitis VS gastritis VS gastroparesis - CT Abdomen Pelvis initial read shows: Mass enhancing lesion in pancreatic head ; splenic venous thrombosis; cysts in body/tail - Per GI, these are not new findings, and are all chronic and stable; no intervention - Cont home pancreatic enzymes - Switched pain regimen to PO - Continue IVF - Switched antiemetics to reglan, for possible gastroparesis component - Patient tolerated CLD for breakfast; advance as tolerated - GI consult: Dr. Cadet Diabetes Mellitus - RISS medium - Fingersticks q6h Hyperkalemia - K 4.5 today after one dose of kayexalate and IVF hydration - Recheck with AM labs History of Hypertriglyceridemia - Triglycerides severely elevated >1000 today - Continue aggressive IVF hydration - Recheck with AM labs - Patient not tolerating lopid due to size of pill; will discuss with GI for alternative treatment for hypertriglyceridemia - Cont home Lopid and colesevelam GI/DVT PPx - SCDs, Protonix Patient discussed and reviewed with attending Dr. Lackey <Mohit Lackey - Last Filed: 12/02/17 14:58> Objective - Vital Signs/Intake and Output Vital Signs (last 24 hours): Temp Pulse Resp BP Pulse Ox 98.6 F 64 18 126/77 99 12/02/17 07:30 12/02/17 07:30 12/02/17 07:30 12/02/17 07:30 12/02/17 07:30 - Medications Medications: Current Medications Gemfibrozil (Lopid) 600 mg PO BID [facility] Last Admin: 12/02/17 09:23 Dose: 600 mg Lactated Ringer's (Lactated Ringer's) 1,000 mls @ 150 mls/hr IV .Q6H40M [facility] Last Admin: 12/02/17 10:27 Dose: 150 mls/hr Insulin Human Lispro (Humalog Med) 0 units SC ACHS [facility] PRN Reason: Protocol Metoclopramide HCl (Reglan) 5 mg IVP AC [facility] Last Admin: 12/02/17 13:07 Dose: 5 mg Colesevelam Hcl [ (Welchol] 625 Mg) 625 mg PO BID [facility] Last Admin: 12/02/17 09:22 Dose: Not Given Lipase/Protease/Amylase [Kiel Leal 36 ,000 Units Capsule] 1 each PO TID [facility] Oxycodone/Acetaminophen (Percocet 5/325 Mg Tab) 1 tab PO Q4H PRN PRN Reason: Pain, severe (8-10) Stop: 12/05/17 10:52 Pantoprazole Sodium (Protonix Inj) 40 mg IVP DAILY [facility] Last Admin: 12/02/17 09:24 Dose: 40 mg Polyethylene Glycol (Miralax) 17 gm PO DAILY PRN PRN Reason: Constipation - Labs Labs: PT 11.6 SECONDS (9.4-12.5) 12/01/17 16:00 INR 1.02 (0.93-1.08) 12/01/17 16:00 APTT 32.7 Seconds (25.1-36.5) 12/01/17 16:00 Attending/Attestation - Attestation I have personally seen and examined this patient.: Yes I have fully participated in the care of the patient.: Yes I have reviewed all pertinent clinical information, including history, physical exam and plan: Yes Notes (Text): 12/02/17 14:54 42 year old male with past medical history of chronic pancreatitis, hypertriglyceridemia and hepatitis C who presented with complaint of nausea, vomiting and abdominal pain. CT abd/pelvis reviewed as above and was discussed with GI; chronic findings per GI/radiologist. He was also found to have elevated triglyceride level 1042. He admits to medication noncompliance. Continue with PPI, reglan, IVF and liquid diet as tolerated. Continue with home pancreatic enzymes. Will follow up with GI recommendations. Mohit Lackey MD Hospitalist.
[2017-12-02] MEDS ORDERED: Magnesium Sulfate 2 GM in Sodium Chloride 0.9% 100 ML IVPB ONE (11:58)
--- NOTE | 2017-12-02 14:05 | CP.PCM.CON ---
<FordePedro - Last Filed: 12/02/17 14:15> History of Present Illness - History of Present Illness History of Present Illness: PGY4 Initial GI Consult Note Cortez Oh is a 42 y/o M with PMH of Hepatitis C, Chronic pancreatitis, DM , HLD, Arthritis, and Chronic back pain presents with worsening abdominal pain and vomiting over the past week. Patient states he has had over 20 episodes of vomiting. As per pt, his vomiting is nonbloody and bilious. Pt states that he has been taking all of his medications as prescribed. Pt has had many admission for similar complaints for the past few years. He notes taking is pancreatic enzymes, but does not recall the dose. He denies any loose or greasy BM. He notes 1-2 BM daily but hard. He states that his pain is epigastric and RUQ, radiating to the back. He states that his pain was a 10 out 10 and only alleviated with pain meds. He mentions the pain has been so severe he has not left his home. He states that he has a GI physician and has regular outpt follow -ups. A CT of the abd this admission was reported as revealing a possible pancreatic head mass, and cyst in the body and tail. The CT also revealed a chronic splenic thrombus and gastric, esophageal varices. PMH: Hepatitis C, Chronic Pancreatitis, DM, HLD, Arthritis, chronic back pain PSH: Appendectomy, Cholecystectomy, Pancreatic Pseudocyst resection FMH: [place], Bone Cancer Social Hx: Admits to occasional cigar use. Denies alcohol or illicit drug use Allergy: Hair Dye Medication: Reviewed, as per MAR ROS: 12 point ROS conducted, neg other than above Past Patient History - Infectious Disease Hx of Infectious Diseases: None - Tetanus Immunizations Tetanus Immunization: Unknown - Past Medical History & Family History Past Medical History?: Yes - Past Social History Smoking Status: Heavy Smoker > 10 Cigarettes Daily - CARDIAC Hx Cardiac Disorders: Yes Hx Cardia Arrhythmia: Yes (bradycardia) Hx Hypertension: Yes Hx Peripheral Vascular Disease: Yes - PULMONARY Hx Respiratory Disorders: Yes (chronic dry cough x 8 months since sx) - NEUROLOGICAL Hx Neurological Disorder: Yes Hx Dizziness: Yes (falls from dizziness since 2013) - HEENT Hx HEENT Problems: Yes (blurry vision) Other/Comment: [place] due to earwax - RENAL Hx Chronic Kidney Disease: Yes Hx Kidney Stones: Yes - ENDOCRINE/METABOLIC Hx Endocrine Disorders: Yes Hx Diabetes Mellitus Type 1: Yes - HEMATOLOGICAL/ONCOLOGICAL Hx Blood Disorders: Yes Hx Hepatitis C: Yes - INTEGUMENTARY Hx Dermatological Problems: Yes Other/Comment: chronic itchy skin since "surgery 8 months ago" - MUSCULOSKELETAL/RHEUMATOLOGICAL Hx Falls: Yes ("dizzy and falling since 2013") - GASTROINTESTINAL Hx Gastrointestinal Disorders: Yes (chronic constipation) Hx Gall Bladder Disease: Yes (gallstones) Hx Gastroesophageal Reflux: Yes Hx Pancreatitis: Yes - GENITOURINARY/GYNECOLOGICAL Hx Genitourinary Disorders: Yes (burning on urination "sometimes') Hx Urinary Tract Infection: Yes - PSYCHIATRIC Hx Depression: Yes Hx Substance Use: No - SURGICAL HISTORY Hx Appendectomy: Yes Hx Cholecystectomy: Yes Other/Comment: 2009 in [place] ap ruptured damagec pancreas, had sx on pancreas and gb sx at [facility] 8 months ago - ANESTHESIA Hx Anesthesia: Yes Meds Allergies/Adverse Reactions: Allergies Allergy/AdvReac Type Severity Reaction Status Date / Time dy Allergy Mild ITCHING Uncoded 04/25/17 13:16 hair color dye Allergy RASH Uncoded 04/25/17 13:16 - Medications Medications: Current Medications Gemfibrozil (Lopid) 600 mg PO BID [facility] Last Admin: 12/02/17 09:23 Dose: 600 mg Lactated Ringer's (Lactated Ringer's) 1,000 mls @ 150 mls/hr IV .Q6H40M [facility] Last Admin: 12/02/17 10:27 Dose: 150 mls/hr Insulin Human Lispro (Humalog Med) 0 units SC ACHS [facility] PRN Reason: Protocol Metoclopramide HCl (Reglan) 5 mg IVP AC [facility] Last Admin: 12/02/17 13:07 Dose: 5 mg Colesevelam Hcl [ (Welchol] 625 Mg) 625 mg PO BID [facility] Last Admin: 12/02/17 09:22 Dose: Not Given Lipase/Protease/Amylase [Kiel Leal 36 ,000 Units Capsule] 1 each PO TID [facility] Oxycodone/Acetaminophen (Percocet 5/325 Mg Tab) 1 tab PO Q4H PRN PRN Reason: Pain, severe (8-10) Stop: 12/05/17 10:52 Pantoprazole Sodium (Protonix Inj) 40 mg IVP DAILY [facility] Last Admin: 12/02/17 09:24 Dose: 40 mg Polyethylene Glycol (Miralax) 17 gm PO DAILY PRN PRN Reason: Constipation Physical Exam - Constitutional Appears: Well, No Acute Distress - Head Exam Head Exam: ATRAUMATIC, NORMOCEPHALIC - Eye Exam Eye Exam: Normal appearance - ENT Exam ENT Exam: Mucous Membranes Moist, Normal Exam - Neck Exam Neck exam: Positive for: Normal Inspection - Respiratory Exam Respiratory Exam: Clear to Auscultation Bilateral, NORMAL BREATHING PATTERN. absent: Prolonged Expiratory Phase, Rales, Rhonchi, Wheezes - Cardiovascular Exam Cardiovascular Exam: REGULAR RHYTHM, +S1, +S2 - GI/Abdominal Exam GI & Abdominal Exam: Normal Bowel Sounds, Soft, Tenderness (RUq and epigastric) . absent: Organomegaly, Rebound, Rigid - Extremities Exam Extremities exam: Negative for: joint swelling, pedal edema - Neurological Exam Neurological exam: Alert, Normal Gait, Oriented x3 - Psychiatric Exam Psychiatric exam: Normal Affect, Normal Mood - Skin Skin Exam: Dry, Intact, Normal Color, Warm Results - Vital Signs Recent Vital Signs: Last Vital Signs Temp 98.6 F 12/02/17 07:30 Pulse 64 12/02/17 07:30 Resp 18 12/02/17 07:30 BP 126/77 12/02/17 07:30 Pulse Ox 99 12/02/17 07:30 - Labs Result Diagrams: 12/02/17 08:27 12/02/17 08:27 Labs: Laboratory Results - last 24 hr 12/02/17 11:41 POC Glucose (mg/dL) 256 H Assessment & Plan - Assessment and Plan (Free Text) Assessment: This is a 42 year old male with h/o chronic pancreatitis, DM, HLD, hep C admitted with abdominal pain. Chronic pancreatitis Hypertriglyeremia Non-compliant on Home Meds Uncontrolled DM hx of pancreatic cyts Plan: -continue supportive measures -pain control / iv hydration -start on clears -TG >1000, recommend staring fenofibrate or gemfibrozil -stricter DM control -Spoke with , (radiology) who states that its unlikely to be a pancreatic head mass, the pancreatic tail is atrophied, and the cyst in the body is slightly larger with no dilatation of PD -recommend pt follow-up with [facility] -f/u with PCP and oupt GI -continue Creon D/W . Jiménez <Franck Jiménez - Last Filed: 12/02/17 14:48> Meds - Medications Medications: Current Medications Gemfibrozil (Lopid) 600 mg PO BID [facility] Last Admin: 12/02/17 09:23 Dose: 600 mg Lactated Ringer's (Lactated Ringer's) 1,000 mls @ 150 mls/hr IV .Q6H40M [facility] Last Admin: 12/02/17 10:27 Dose: 150 mls/hr Insulin Human Lispro (Humalog Med) 0 units SC ACHS [facility] PRN Reason: Protocol Metoclopramide HCl (Reglan) 5 mg IVP AC [facility] Last Admin: 12/02/17 13:07 Dose: 5 mg Colesevelam Hcl [ (Welchol] 625 Mg) 625 mg PO BID [facility] Last Admin: 12/02/17 09:22 Dose: Not Given Lipase/Protease/Amylase [Kiel Leal 36 ,000 Units Capsule] 1 each PO TID [facility] Oxycodone/Acetaminophen (Percocet 5/325 Mg Tab) 1 tab PO Q4H PRN PRN Reason: Pain, severe (8-10) Stop: 12/05/17 10:52 Pantoprazole Sodium (Protonix Inj) 40 mg IVP DAILY [facility] Last Admin: 12/02/17 09:24 Dose: 40 mg Polyethylene Glycol (Miralax) 17 gm PO DAILY PRN PRN Reason: Constipation Results - Vital Signs Recent Vital Signs: Last Vital Signs Temp 98.6 F 12/02/17 07:30 Pulse 64 12/02/17 07:30 Resp 18 12/02/17 07:30 BP 126/77 12/02/17 07:30 Pulse Ox 99 12/02/17 07:30 - Labs Result Diagrams: 12/02/17 08:27 12/02/17 08:27 Labs: Laboratory Results - last 24 hr 12/02/17 11:41 POC Glucose (mg/dL) 256 H Attending/Attestation - Attestation I have personally seen and examined this patient.: Yes I have fully participated in the care of the patient.: Yes I have reviewed all pertinent clinical information: Yes Notes (Text): 12/02/17 14:42 Patient seen with GI fellow. This is a 42 year old male with h/o chronic pancreatitis, DM, HLD, hep C admitted with abdominal pain in setting of chronic pancreatitis. Non compliance with outpatient appointments. TG >1000, recommend staring fenofibrate or gemfibrozil with strict DM control. I reviewed with , (radiology) who states that its unlikely to be a pancreatic head mass more likely prominent head of pancreas with atrophy of pancreatic tail, and the cyst in the body is slightly larger with no dilatation of PD. Recommend current managemnet. Can have solid meal low fat as tolerated. Continue PPI po daily. Continue panc enzymes and with outpatient follow up with GI and PMD and [facility]
[2017-12-02] MEDS: Oxycodone/Acetaminophen 5/325 mg Tab PO PRN ×2 (16:29→22:17)
[2017-12-02] MEDS ORDERED: Insulin Human NPH/Reg 70/30 Vial(3 ml) SC SCH (18:00)
[2017-12-02] MEDS: Insulin Human NPH/Reg 70/30 Vial(3 ml) SC SCH (22:02)
[2017-12-03 07:29] LABS: BASO # 0.05 K/mm3 (0.0-2.0); BASO % 1.2 % (0.0-3.0); EOS # 0.1 (0.0-0.7); GRAN # 1.94 (1.4-6.5); GRAN % 48.5 % (50.0-68.0); HEMOGLOBIN 11.4 g/dL (14.0-18.0); LYMPH # 1.7 (1.2-3.4); LYMPH % 42.1 % (22.0-35.0); MEAN CELL VOLUME 74.8 fl (80.0-105.0); MEAN CORPUSCULAR HEMOGLOBIN 25.9 pg (25.0-35.0); MEAN CORPUSCULAR HGB CONC 34.7 g/dl (31.0-37.0); MEAN PLATELET VOLUME 10.9 fl (7.0-11.0); MONO # 0.2 (0.1-0.6); MONO % 5.2 % (1.0-6.0); RBC 4.4 10^6/uL (3.5-6.1); RED CELL DISTRIBUTION WIDTH 15.8 % (11.5-14.5)
[2017-12-03 08:04] LABS: ALT/SGPT 39 U/L (7-56); AST/SGOT 25 U/L (17-59); BLOOD UREA NITROGEN 5 mg/dL (7-21); GFR AFRICAN-AMERICAN > 60; GFR NON-AFRICAN AMERICAN > 60; HDL CHOLESTEROL 17 mg/dL (29-60)
[2017-12-03 08:18] LABS: LDL CHOLESTEROL 25 mg/dL (0-129)
[2017-12-03 09:55] VITALS: TEMP 97.5
[2017-12-03] MEDS: Amylase/Lipase/Protease 5,000 Units ECC PO SCH ×2 (11:03→15:28)
[2017-12-03] MEDS: Insulin Lispro (humaLOG) MEDIUM Coverage SC SCH ×4 (11:06→15:41)
[2017-12-03] MEDS: Insulin Human NPH/Reg 70/30 Vial(3 ml) SC SCH (11:07)
[2017-12-03] MEDS: Oxycodone/Acetaminophen 5/325 mg Tab PO PRN ×2 (11:17→15:26)
[2017-12-03] MEDS: Colesevelam Hcl [Welchol] 625 MG PO SCH (15:27)
[2017-12-03 17:01] VITALS: BP 121/66; PULSE 61
[2017-12-03 18:01] VITALS: RESP 20; O2SAT 99
--- NOTE | 2017-12-03 23:09 | CP.PCM.DIS ---
<Jean-PierreEsme - Last Filed: 12/04/17 19:33> Provider - Provider Date of Admission: 12/02/17 11:27 Attending physician: Mohit Lackey MD Primary care physician: Shani Atwood DO Consults: GI: Tino Time Spent in preparation of Discharge (in minutes): 55 Diagnosis - Discharge Diagnosis (1) Nausea & vomiting Status: Acute (2) Abdominal discomfort Status: Acute Hospital Course - Lab Results Lab Results: Most Recent Lab Values WBC 4.0 10^3/ul (4.5-11.0) L D 12/03/17 07:00 RBC 4.40 10^6/uL (3.5-6.1) 12/03/17 07:00 Hgb 11.4 g/dL (14.0-18.0) L 12/03/17 07:00 Hct 32.9 % (42.0-52.0) L 12/03/17 07:00 MCV 74.8 fl (80.0-105.0) L 12/03/17 07:00 MCH 25.9 pg (25.0-35.0) 12/03/17 07:00 MCHC 34.7 g/dl (31.0-37.0) 12/03/17 07:00 RDW 15.8 % (11.5-14.5) H 12/03/17 07:00 Plt Count 131 10^3/uL (120.0-450.0) 12/03/17 07:00 MPV 10.9 fl (7.0-11.0) 12/03/17 07:00 Gran % 48.5 % (50.0-68.0) L 12/03/17 07:00 Lymph % (Auto) 42.1 % (22.0-35.0) H 12/03/17 07:00 [place] % (Auto) 5.2 % (1.0-6.0) 12/03/17 07:00 Eos % (Auto) 3.0 % (1.5-5.0) 12/03/17 07:00 Baso % (Auto) 1.2 % (0.0-3.0) 12/03/17 07:00 Gran # 1.94 (1.4-6.5) 12/03/17 07:00 Lymph # (Auto) 1.7 (1.2-3.4) 12/03/17 07:00 [place] # (Auto) 0.2 (0.1-0.6) 12/03/17 07:00 Eos # (Auto) 0.1 (0.0-0.7) 12/03/17 07:00 Baso # (Auto) 0.05 K/mm3 (0.0-2.0) 12/03/17 07:00 PT 11.6 SECONDS (9.4-12.5) 12/01/17 16:00 INR 1.02 (0.93-1.08) 12/01/17 16:00 APTT 32.7 Seconds (25.1-36.5) 12/01/17 16:00 pO2 34 mm/Hg (30-55) 12/01/17 16:00 VBG pH 7.33 (7.32-7.43) 12/01/17 16:00 VBG pCO2 49.0 (40-60) 12/01/17 16:00 VBG HCO3 25.8 mmol/l (21-28) 12/01/17 16:00 VBG Total CO2 27.3 mmol.L (22-28) 12/01/17 16:00 VBG O2 Sat (Calc) 71.5 % (40-65) H 12/01/17 16:00 VBG Base Excess -0.7 mmol/L (0.0-2.0) L 12/01/17 16:00 VBG Potassium 5.0 mmol/L (3.6-5.2) 12/01/17 16:00 Sodium 134.0 mmol/L (132-148) 12/01/17 16:00 Chloride 101.0 mmol/L (98-107) 12/01/17 16:00 Glucose 374 mg/dl (75-110) H 12/01/17 16:00 Lactate 1.2 mmol/L (0.7-2.1) 12/01/17 16:00 FiO2 21.0 % 12/01/17 16:00 Sodium 139 mmol/L (132-148) 12/03/17 07:00 Potassium 3.7 mmol/L (3.6-5.0) 12/03/17 07:00 Chloride 105 mmol/L (98-107) 12/03/17 07:00 Carbon Dioxide 29 mmol/L (21-33) 12/03/17 07:00 Anion Gap 9 (10-20) L 12/03/17 07:00 BUN 5 mg/dL (7-21) L 12/03/17 07:00 Creatinine 0.6 mg/dl (0.8-1.5) L 12/03/17 07:00 Est GFR ( Amer) > 60 12/03/17 07:00 Est GFR (Non-Af Amer) > 60 12/03/17 07:00 POC Glucose (mg/dL) 250 mg/dL (65-110) H 12/03/17 15:37 Random Glucose 149 mg/dL (70-110) H 12/03/17 07:00 Calcium 9.0 mg/dL (8.4-10.5) 12/03/17 07:00 Phosphorus 3.8 mg/dL (2.5-4.5) 12/02/17 08:27 Magnesium 1.6 mg/dL (1.7-2.2) L 12/02/17 08:27 Total Bilirubin 0.5 mg/dL (0.2-1.3) 12/03/17 07:00 AST 25 U/L (17-59) 12/03/17 07:00 ALT 39 U/L (7-56) 12/03/17 07:00 Alkaline Phosphatase 68 U/L (38-126) 12/03/17 07:00 Total Protein 5.9 g/dL (5.8-8.3) 12/03/17 07:00 Albumin 3.0 g/dL (3.0-4.8) 12/03/17 07:00 Globulin 3.0 gm/dL 12/03/17 07:00 Albumin/Globulin Ratio 1.0 (1.1-1.8) L 12/03/17 07:00 Triglycerides 580 mg/dL (35-160) H 12/03/17 07:00 Cholesterol 158 mg/dL (130-200) 12/03/17 07:00 LDL Cholesterol Direct 25 mg/dL (0-129) 12/03/17 07:00 HDL Cholesterol 17 mg/dL (29-60) L 12/03/17 07:00 Lipase 112 U/L (23-300) 12/01/17 16:00 Free T4 1.41 ng/dL (0.78-2.19) 12/02/17 08:27 TSH 3rd Generation 0.49 mIU/mL (0.46-4.68) 12/02/17 08:27 Venous Blood Potassium 5.0 mmol/L (3.6-5.2) 12/01/17 16:00 Urine Color Yellow (YELLOW) 12/01/17 20:30 Urine Appearance Clear (CLEAR) 12/01/17 20:30 Urine pH 6.0 (4.7-8.0) 12/01/17 20:30 Ur Specific Primrose 1.015 (1.005-1.035) 12/01/17 20:30 Urine Protein Trace mg/dL (<30 mg/dL) H 12/01/17 20:30 Urine Glucose (UA) >=1000 mg/dL (NEGATIVE) 12/01/17 20:30 Urine Ketones >=80 mg/dL (NEGATIVE) 12/01/17 20:30 Urine Blood Negative (NEGATIVE) 12/01/17 20:30 Urine Nitrate Negative (NEGATIVE) 12/01/17 20:30 Urine Bilirubin Negative (NEGATIVE) 12/01/17 20:30 Urine Urobilinogen 0.2 E.U./dL (<1 E.U./dL) 12/01/17 20:30 Ur Leukocyte Esterase Negative Elba/uL (NEGATIVE) 12/01/17 20:30 Urine RBC 0 - 2 /hpf (0-2) 12/01/17 20:30 Urine WBC 0 - 2 /hpf (0-6) 12/01/17 20:30 - Hospital Course Hospital Course: 42 yo M with PMH of HCV, Arthritis, chronic pancreatitis, pancreatic cysts, DM, hypertriglyceridemia who presented to the ED with complaints of abdominal pain, 2 days of vomiting, and bloody bowel movements because of his hemorrhoids. He reports 30-40 episodes of green liquid vomiting. Patient was not observed vomiting during hospitalization. Patient was noted to have severe hypertriglyceridemia, which improved with lipid lowering medications and IVF hydration. Patient also had CT scan of the abdomen which was concerning for several new findings, but upon review with the GI consultants and radiologist, findings were determined to be chronic and stable, compared to prior imaging studies. Patient's diet was advanced, until he was tolerating a regular, low fat diet without severe nausea, and no vomiting. Patient's pharmacy was contacted and medications were reviewed. Patient reports compliance with all his medications, including his pancreatic enzymes and lipid lowering medications , but according to the pharmacy records, patient has not filled a prescription for either in several months. Compliance and outpatient follow up with stressed to the patient for managing his chronic medical conditions and his pain. Patient verbalized understanding and agreement. Today, patient was tolerating a regular diet without any vomiting. Pain is moderately controlled with PO narcotics. He denies chest pain, fever, or chills. He was given new prescriptions for his medications, and instructions on follow up. Patient has established care with private PCP, GI, and ID, and was repeatedly encouraged to follow up with them all. All questions were answered to his satisfaction, and he was discharged to home. Discharge Exam - Head Exam Head Exam: ATRAUMATIC, NORMOCEPHALIC - Eye Exam Eye Exam: EOMI, Normal appearance, PERRL Pupil Exam: NORMAL ACCOMODATION - ENT Exam ENT Exam: Mucous Membranes Moist - Neck Exam Neck exam: Normal Inspection - Respiratory Exam Respiratory Exam: Clear to PA & Lateral, NORMAL BREATHING PATTERN - Cardiovascular Exam Cardiovascular Exam: RRR, +S1, +S2 - GI/Abdominal Exam GI & Abdominal Exam: Guarding, Normal Bowel Sounds, Soft, Tenderness (diffuse, even to very superficial palpation, seemingly anticipatory). absent: Firm, Rigid - Extremities Exam Extremities exam: normal inspection - Neurological Exam Neurological exam: Alert, Oriented x3 - Psychiatric Exam Psychiatric exam: Normal Affect, Normal Mood - Skin Skin Exam: Dry, Intact, Normal Color Discharge Plan - Discharge Medications Prescriptions: RX: Gemfibrozil [Lopid] 600 mg PO BID #60 tab Lipase/Protease/Amylase [Creon Dr 36,000 Units Capsule] 1 each PO TID #90 RX: oxyCODONE [oxyCODONE Immediate Release Tab] 10 mg PO Q8H PRN #12 tab PRN Reason: Pain, Severe (8-10) - Follow Up Plan Condition: STABLE Disposition: HOME/ ROUTINE Instructions: Chronic Pain (DC), Blood Glucose Monitoring, The ABCs of Diabetes , Chronic Pancreatitis (DC), Diabetes and Diet, Diabetic Hyperglycemia (DC) Additional Instructions: 1. Continue to take pancreatic enzymes with meals 2. Continue to take gemfibrozil twice daily 3. Continue to take all other medications as previously prescribed 4. Continue oxycodone 10mg every 8 hours for severe pain 5. Follow up with your primary care doctor within 7 days 6. 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 For any new or worsening concerns, contact your PCP immediately, or return to the ER Referrals: Shani Atwood DO [Primary Care Provider] - <Mohit Lackey - Last Filed: 12/05/17 21:49> Provider - Provider Date of Admission: 12/02/17 11:27 Attending physician: Mohit Lackey MD Primary care physician: Shani Atwood DO Hospital Course - Lab Results Lab Results: Most Recent Lab Values WBC 4.0 10^3/ul (4.5-11.0) L D 12/03/17 07:00 RBC 4.40 10^6/uL (3.5-6.1) 12/03/17 07:00 Hgb 11.4 g/dL (14.0-18.0) L 12/03/17 07:00 Hct 32.9 % (42.0-52.0) L 12/03/17 07:00 MCV 74.8 fl (80.0-105.0) L 12/03/17 07:00 MCH 25.9 pg (25.0-35.0) 12/03/17 07:00 MCHC 34.7 g/dl (31.0-37.0) 12/03/17 07:00 RDW 15.8 % (11.5-14.5) H 12/03/17 07:00 Plt Count 131 10^3/uL (120.0-450.0) 12/03/17 07:00 MPV 10.9 fl (7.0-11.0) 12/03/17 07:00 Gran % 48.5 % (50.0-68.0) L 12/03/17 07:00 Lymph % (Auto) 42.1 % (22.0-35.0) H 12/03/17 07:00 [place] % (Auto) 5.2 % (1.0-6.0) 12/03/17 07:00 Eos % (Auto) 3.0 % (1.5-5.0) 12/03/17 07:00 Baso % (Auto) 1.2 % (0.0-3.0) 12/03/17 07:00 Gran # 1.94 (1.4-6.5) 12/03/17 07:00 Lymph # (Auto) 1.7 (1.2-3.4) 12/03/17 07:00 [place] # (Auto) 0.2 (0.1-0.6) 12/03/17 07:00 Eos # (Auto) 0.1 (0.0-0.7) 12/03/17 07:00 Baso # (Auto) 0.05 K/mm3 (0.0-2.0) 12/03/17 07:00 PT 11.6 SECONDS (9.4-12.5) 12/01/17 16:00 INR 1.02 (0.93-1.08) 12/01/17 16:00 APTT 32.7 Seconds (25.1-36.5) 12/01/17 16:00 pO2 34 mm/Hg (30-55) 12/01/17 16:00 VBG pH 7.33 (7.32-7.43) 12/01/17 16:00 VBG pCO2 49.0 (40-60) 12/01/17 16:00 VBG HCO3 25.8 mmol/l (21-28) 12/01/17 16:00 VBG Total CO2 27.3 mmol.L (22-28) 12/01/17 16:00 VBG O2 Sat (Calc) 71.5 % (40-65) H 12/01/17 16:00 VBG Base Excess -0.7 mmol/L (0.0-2.0) L 12/01/17 16:00 VBG Potassium 5.0 mmol/L (3.6-5.2) 12/01/17 16:00 Sodium 134.0 mmol/L (132-148) 12/01/17 16:00 Chloride 101.0 mmol/L (98-107) 12/01/17 16:00 Glucose 374 mg/dl (75-110) H 12/01/17 16:00 Lactate 1.2 mmol/L (0.7-2.1) 12/01/17 16:00 FiO2 21.0 % 12/01/17 16:00 Sodium 139 mmol/L (132-148) 12/03/17 07:00 Potassium 3.7 mmol/L (3.6-5.0) 12/03/17 07:00 Chloride 105 mmol/L (98-107) 12/03/17 07:00 Carbon Dioxide 29 mmol/L (21-33) 12/03/17 07:00 Anion Gap 9 (10-20) L 12/03/17 07:00 BUN 5 mg/dL (7-21) L 12/03/17 07:00 Creatinine 0.6 mg/dl (0.8-1.5) L 12/03/17 07:00 Est GFR ( Amer) > 60 12/03/17 07:00 Est GFR (Non-Af Amer) > 60 12/03/17 07:00 POC Glucose (mg/dL) 250 mg/dL (65-110) H 12/03/17 15:37 Random Glucose 149 mg/dL (70-110) H 12/03/17 07:00 Hemoglobin A1c 14.5 % (4.2-6.5) H 12/02/17 08:27 Calcium 9.0 mg/dL (8.4-10.5) 12/03/17 07:00 Phosphorus 3.8 mg/dL (2.5-4.5) 12/02/17 08:27 Magnesium 1.6 mg/dL (1.7-2.2) L 12/02/17 08:27 Total Bilirubin 0.5 mg/dL (0.2-1.3) 12/03/17 07:00 AST 25 U/L (17-59) 12/03/17 07:00 ALT 39 U/L (7-56) 12/03/17 07:00 Alkaline Phosphatase 68 U/L (38-126) 12/03/17 07:00 Total Protein 5.9 g/dL (5.8-8.3) 12/03/17 07:00 Albumin 3.0 g/dL (3.0-4.8) 12/03/17 07:00 Globulin 3.0 gm/dL 12/03/17 07:00 Albumin/Globulin Ratio 1.0 (1.1-1.8) L 12/03/17 07:00 Triglycerides 580 mg/dL (35-160) H 12/03/17 07:00 Cholesterol 158 mg/dL (130-200) 12/03/17 07:00 LDL Cholesterol Direct 25 mg/dL (0-129) 12/03/17 07:00 HDL Cholesterol 17 mg/dL (29-60) L 12/03/17 07:00 Lipase 112 U/L (23-300) 12/01/17 16:00 Free T4 1.41 ng/dL (0.78-2.19) 12/02/17 08:27 TSH 3rd Generation 0.49 mIU/mL (0.46-4.68) 12/02/17 08:27 Venous Blood Potassium 5.0 mmol/L (3.6-5.2) 12/01/17 16:00 Urine Color Yellow (YELLOW) 12/01/17 20:30 Urine Appearance Clear (CLEAR) 12/01/17 20:30 Urine pH 6.0 (4.7-8.0) 12/01/17 20:30 Ur Specific Primrose 1.015 (1.005-1.035) 12/01/17 20:30 Urine Protein Trace mg/dL (<30 mg/dL) H 12/01/17 20:30 Urine Glucose (UA) >=1000 mg/dL (NEGATIVE) 12/01/17 20:30 Urine Ketones >=80 mg/dL (NEGATIVE) 12/01/17 20:30 Urine Blood Negative (NEGATIVE) 12/01/17 20:30 Urine Nitrate Negative (NEGATIVE) 12/01/17 20:30 Urine Bilirubin Negative (NEGATIVE) 12/01/17 20:30 Urine Urobilinogen 0.2 E.U./dL (<1 E.U./dL) 12/01/17 20:30 Ur Leukocyte Esterase Negative Elba/uL (NEGATIVE) 12/01/17 20:30 Urine RBC 0 - 2 /hpf (0-2) 12/01/17 20:30 Urine WBC 0 - 2 /hpf (0-6) 12/01/17 20:30 Attending/Attestation - Attestation I have personally seen and examined this patient.: Yes I have fully participated in the care of the patient.: Yes I have reviewed all pertinent clinical information, including history, physical exam and plan: Yes Notes (Text): 12/05/17 21:48 42 year old male with past medical history of chronic pancreatitis, hypertriglyceridemia and hepatitis C who presented with complaint of nausea, vomiting and abdominal pain. CT abd/pelvis reviewed as above and was discussed with GI; chronic findings per GI/radiologist. He was also found to have elevated triglyceride level 1042. Symptoms improved with PPI, reglan, IVF and liquid diet which was advanced as tolerated. He was counselled on medication and outpatient follow up compliance. Mohit Lackey MD Hospitalist.
== END 2017-12-03 18:26 | disposition home or self-care (01) | DRG 813 ==
LOC: ED 15:03 → ERH 18:28 → 5RSO 21:53 → OBSVTOIN 12-02 11:27
PROVIDERS: ADMIT Hospitalist; ATTEND Internal Medicine
DX: R10.13 Epigastric pain (principal); E10.22 Type 1 diabetes mellitus with diabetic chronic kidney disease; E10.51 Type 1 diabetes mellitus with diabetic peripheral angiopathy without gangrene; I85.00 Esophageal varices without bleeding; E87.5 Hyperkalemia; N18.9 Chronic kidney disease, unspecified; R10.11 Right upper quadrant pain; E10.65 Type 1 diabetes mellitus with hyperglycemia; E86.0 Dehydration; R11.2 Nausea with vomiting, unspecified; Z80.8 Family history of malignant neoplasm of other organs or systems; Z82.49 Family history of ischemic heart disease and other diseases of the circulatory system; E78.1 Pure hyperglyceridemia; E78.5 Hyperlipidemia, unspecified; I12.9 Hypertensive chronic kidney disease with stage 1 through stage 4 chronic kidney disease, or unspecified chronic kidney disease; I86.4 Gastric varices; K21.9 Gastro-esophageal reflux disease without esophagitis; K29.80 Duodenitis without bleeding; K59.00 Constipation, unspecified; K86.1 Other chronic pancreatitis; F17.210 Nicotine dependence, cigarettes, uncomplicated; Z79.4 Long term (current) use of insulin; Z87.440 Personal history of urinary (tract) infections; Z87.442 Personal history of urinary calculi; Z90.49 Acquired absence of other specified parts of digestive tract; Z91.14 Patient's other noncompliance with medication regimen; Z91.81 History of falling; Z91.048 Other nonmedicinal substance allergy status; R40.2412 Glasgow coma scale score 13-15, at arrival to emergency department; M19.90 Unspecified osteoarthritis, unspecified site; R30.0 Dysuria

== ENCOUNTER 2018-08-20 23:20 | Observation (INO) | payer OTHER ==
--- NOTE | 2018-08-20 23:34 | ED PDOC ---
Arrival/HPI - General Chief Complaint: Abdominal Pain Time Seen by Provider: 08/20/18 23:28 Historian: Patient - History of Present Illness Narrative History of Present Illness (Text): 08/20/18 23:31 Cortez Oh is a 43 year old male, whose past medical history includes Hepatitis C, chronic pancreatitis, appendectomy, cholecystectomy, pancreatic pseudocyst resection, diabetes, hyperlipidemia, arthritis, and chronic back p ain, who presents to the Emergency department complaining of abdominal pain. Patient states he has been experiencing upper abdominal pain with associated nausea and vomiting for the past 5 days. Patient denies any fever, chills, chest pain, shortness of breath, urinary symptoms, back pain, neck pain, headache, dizziness, or any other complaints. Symptom Onset: Gradual Symptom Course: Unchanged Activities at Onset: Light Context: Home Past Medical History - Provider Review Nursing Documentation Reviewed: Yes - Past History Past History: No Previous - Infectious Disease Hx of Infectious Diseases: None - Tetanus Immunization Tetanus Immunization: Unknown - Cardiac Hx Cardiac Disorders: Yes Hx Cardiac Arrhythmia: Yes (bradycardia) Hx Hypertension: Yes Hx Peripheral Vascular Disease: Yes - Pulmonary Hx Respiratory Disorders: Yes (chronic dry cough x 8 months since sx) - Neurological Hx Neurological Disorder: Yes Hx Dizziness: Yes (falls from dizziness since 2013) - HEENT Hx HEENT Disorder: Yes (blurry vision) Other/Comment: [place] due to earwax - Renal Hx Renal Disorder: Yes Hx Kidney Stones: Yes - Endocrine/Metabolic Hx Endocrine Disorders: Yes Hx Diabetes Mellitus Type 1: Yes - Hematological/Oncological Hx Blood Disorders: Yes Hx Hepatitis C: Yes - Integumentary Hx Dermatological Disorder: Yes Other/Comment: chronic itchy skin since "surgery 8 months ago" - Musculoskeletal/Rheumatological Hx Falls: Yes ("dizzy and falling since 2014") - Gastrointestinal Hx Gastrointestinal Disorders: Yes (chronic constipation) Hx Gall Bladder Disease: Yes (gallstones) Hx Gastroesophageal Reflux: Yes Hx Pancreatitis: Yes - Genitourinary/Gynecological Hx Genitourinary Disorders: Yes (burning on urination "sometimes') Hx Urinary Tract Infection: Yes - Psychiatric Hx Depression: Yes Hx Substance Use: No - Surgical History Hx Appendectomy: Yes Hx Cholecystectomy: Yes Other/Comment: 2008 in [place] ap ruptured damagec pancreas, had sx on pancreas and gb sx at [facility] 8 months ago - Anesthesia Hx Anesthesia: Yes - Suicidal Assessment Feels Threatened In Home Enviroment: No Family/Social History - Physician Review Nursing Documentation Reviewed: Yes Family/Social History: Unknown Family HX Smoking Status: Heavy Smoker > 10 Cigarettes Daily Hx Alcohol Use: No Hx Substance Use: No Hx Substance Use Treatment: No Allergies/Home Meds Allergies/Adverse Reactions: Allergies dy Allergy (Mild, Uncoded 08/20/18 23:27) ITCHING hair color dye Allergy (Uncoded 08/20/18 23:27) RASH Home Medications: Home Meds Medication Instructions Recorded Confirmed Ammonium Lactate 12% [Lac-Hydrin 1 oin TOP BID 08/20/18 08/20/18 12% Cream (140 g)] Atorvastatin [Lipitor] 10 mg PO DAILY 08/20/18 08/20/18 Colesevelam HCl [Welchol] 625 mg PO TID 08/20/18 08/20/18 Docusate [Colace] 100 mg PO TID 08/20/18 08/20/18 Ergocalciferol (Vitamin D2) 1 tab PO DAILY 08/20/18 08/20/18 [Vitamin D2] Fenofibrate Nanocrystallized 145 mg PO DAILY 08/20/18 08/20/18 [Tricor] Gabapentin [Neurontin] 300 mg PO TID 08/20/18 08/20/18 Hydroxyzine HCl 25 mg PO TID 08/20/18 08/20/18 Insulin Aspart Prot/Insuln Asp See Protocol SC BID 08/20/18 08/20/18 [Novolog Mix 70-30 Vial] Insulin Aspart, Recombinant See Protocol SC BID 08/20/18 08/20/18 [Novolog] Lidocaine 5% [Lidoderm] 2 patch TD DAILY 08/20/18 08/20/18 Linaclotide [Linzess] 145 mcg PO DAILY 08/20/18 08/20/18 Lipase/Protease/Amylase [Creon Dr 2 tab PO TID 08/20/18 08/20/18 36,000 Units Capsule] Lisinopril [Zestril] 2.5 mg PO DAILY 08/20/18 08/20/18 Loratadine [Claritin] 10 mg PO DAILY 08/20/18 08/20/18 [id number] Ethyl Esters 1 GM 2 tab PO BID 08/20/18 08/20/18 [Lovaza] Zolpidem [Ambien] 5 mg PO HS 08/20/18 08/20/18 tiZANidine [Zanaflex] 2 mg PO DAILY 08/20/18 08/20/18 traMADol [Ultram] 50 mg PO QID 08/20/18 08/20/18 Review of Systems - Physician Review All systems were reviewed & negative as marked: Yes - Review of Systems Constitutional: Normal. absent: Fevers Eyes: Normal ENT: Normal Respiratory: Normal. absent: SOB, Cough Cardiovascular: Normal. absent: Chest Pain Gastrointestinal: Abdominal Pain, Diarrhea, Nausea, Vomiting Genitourinary Male: Normal. absent: Dysuria, Frequency, Hematuria, Urinary Output Changes Musculoskeletal: Normal. absent: Back Pain, Neck Pain Skin: Normal. absent: Rash Neurological: Normal. absent: Headache, Dizziness Endocrine: Normal Hemo/Lymphatic: Normal Psychiatric: Normal Physical Exam Vital Signs Reviewed: Yes Vital Signs Temp Pulse Resp BP Pulse Ox 08/20/18 23:29 97.8 F 84 20 131/77 100 Temperature: Afebrile Blood Pressure: Normal Pulse: Regular Respiratory Rate: Normal Appearance: Positive for: Well-Appearing, Non-Toxic, Comfortable Pain Distress: None Mental Status: Positive for: Alert and Oriented X 3 - Systems Exam Head: Present: Atraumatic, Normocephalic Pupils: Present: PERRL Extroacular Muscles: Present: EOMI Conjunctiva: Present: Normal Mouth: Present: Moist Mucous Membranes Neck: Present: Normal Range of Motion Respiratory/Chest: Present: Clear to Auscultation, Good Air Exchange. No: Respiratory Distress, Accessory Muscle Use Cardiovascular: Present: Regular Rate and Rhythm, Normal S1, S2. No: Murmurs Abdomen: Present: Tenderness (Upper abdominal tenderness). No: Distention, Peritoneal Signs Back: Present: Normal Inspection Upper Extremity: Present: Normal Inspection. No: Cyanosis, Edema Lower Extremity: Present: Normal Inspection. No: Edema Neurological: Present: GCS=15, CN II-XII Intact, Speech Normal Skin: Present: Warm, Dry, Normal Color. No: Rashes Psychiatric: Present: Alert, Oriented x 3, Normal Insight, Normal Concentration Medical Decision Making ED Course and Treatment: 08/20/18 23:31 Impression: 43 year old male complaining of upper abdominal pain, nausea, and vomiting. Plan: -- CT Abdomen and Pelvis w/o contrast -- EKG -- CXR -- Labs, lipase -- IV fluids -- Zofran -- Morphine -- Reassess and disposition Prior Visits: Notes and results from previous visits were reviewed. Progress Notes: Reviewed EKG, sinus bradycardia at 52 bpm. LAD. Septal infarct. 08/21/18 02:[address] Guzman, who is aware and agrees with plan. Accepts pt in to hospitalist service. Pt will go to [facility] observation for abdominal pain and intractable vomiting. fixed income trading vice president notified. 08/21/18 02:52 CT Abdomen and Pelvis: The visualized lung bases are unremarkable. Mild irregularity of the unchanged unenhanced liver. Cholecystectomy and nondilated extrahepatic biliary system. Normal unenhanced spleen. Unchanged mid pancreatic body pseudocyst with its anastomosis with the stomach. 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 Fluid-filled distended stomach suggestive of gastroparesis. 4 mm left renal nonobstructing stone. Normal bilateral adrenal glands. Normal size of the right kidney. There is no right renal mass. There are no right renal calculi. There is no right hydronephrosis. Normal visualized right ureter. Normal size of the left kidney. There is no left renal mass. There is no left hydronephrosis. Normal visualized left ureter. Normal small intestine. Normal colon. The appendix is visualized and appears normal. There is no demonstrated peritoneal fluid. Normal abdominal aorta. Normal inferior vena cava. Normal retroperitoneum. Normal urinary bladder. There is no pelvic mass lesion or lymphadenopathy. There is no pelvic fluid. Normal abdominal wall. Mild diffuse spondylosis. IMPRESSION: Unchanged exam. Electronically signed on Aug 21, 2018 2:50:40 AM EST by: Lasha Lopez M.D., Certified by ABR, MSK, Neuroradiology - Lab Interpretations I have reviewed the lab results: Yes - RAD Interpretation Floor Assembler: ED Physician, Radiologist - EKG Interpretation Interpreted by ED Physician: Yes Type: 12 lead EKG - Scribe Statement The provider has reviewed the documentation as recorded by the Jeny Dover Provider Scribe Attestation: All medical record entries made by the Scribe were at my direction and personally dictated by me. I have reviewed the chart and agree that the record accurately reflects my personal performance of the history, physical exam, medical decision making, and the department course for this patient. I have also personally directed, reviewed, and agree with the discharge instructions and disposition. Disposition/Present on Arrival - Present on Arrival Any Indicators Present on Arrival: No History of DVT/PE: Yes History of Uncontrolled Diabetes: Yes Urinary Catheter: No History of Decub. Ulcer: No History Surgical Site Infection Following: None - Disposition Have Diagnosis and Disposition been Completed?: Yes Diagnosis: Intractable abdominal pain, Intractable vomiting with nausea Disposition: HOSPITALIZED Disposition Time: 02:40 Patient Problems: Current Active Problems Problem Status Onset Intractable vomiting with nausea Acute Intractable abdominal pain Chronic Condition: STABLE
[2018-08-20] MEDS ORDERED: Morphine 4 mg/ml ISec IVP STA (23:45)
[2018-08-20] MEDS ORDERED: Sodium Chloride 0.9% 1,000 ML IV STA (23:45)
[2018-08-21 00:02] LABS: HEMOGLOBIN 12.9 g/dL (14.0-18.0); MEAN CELL VOLUME 75.5 fl (80.0-105.0); MEAN CORPUSCULAR HEMOGLOBIN 26.3 pg (25.0-35.0); MEAN CORPUSCULAR HGB CONC 34.9 g/dl (31.0-37.0); MEAN PLATELET VOLUME 10.2 fl (7.0-11.0); RBC 4.9 10^6/uL (3.5-6.1); RED CELL DISTRIBUTION WIDTH 14.1 % (11.5-14.5); WHITE BLOOD COUNT 7.8 10^3/uL (4.5-11.0)
[2018-08-21 00:17] LABS: ALBUMIN 4.2 g/dL (3.0-4.8); ALT/SGPT 20 U/L (7-56); AST/SGOT 19 U/L (17-59); BLOOD UREA NITROGEN 18 mg/dL (7-21); CALCIUM 9.4 mg/dL (8.4-10.5); GFR NON-AFRICAN AMERICAN > 60; LIPASE 143 U/L (23-300)
[2018-08-21] MEDS ORDERED: Morphine 4 mg/ml ISec IVP STA (01:39)
--- NOTE | 2018-08-21 02:41 | CP.PCM.HP ---
<Patrick Forde - Last Filed: 08/21/18 03:55> History of Present Illness - History of Present Illness History of Present Illness: Patrick Forde Internal Medicine Resident H&P on Behalf of Hospitalist Team Subjective: CC: Abdominal pain HPI: Patient is a 42 year old male with a past medical history of HCV, Arthritis, chronic pancreatitis, pancreatic cysts, DM, hypertriglyceridemia who presents to the emergency room for evaluation and treatment of abdominal pain with associated nausea and vomiting. States abdominal pain began 4 days ago with no specific provoking event. Pain originates in the epigastric region and develops into a diffuse abdominal pain. The pain is characterized as being sharp in nature and is rated a 8/10. Also admits to 30 bouts of nonbloody, bilious emesis throughout today. Also admits to SOB with exertion, constipation with the last bowel movement 2 day ago, and dysuria. Patient admits to being noncompliant with home tramadol due to insurance issues. However admits to taking all other home medications as prescribed. Denies fevers, chills, headache, dizziness, visual/auditory changes, chest pain, SOB at rest, diarrhea, blood in stools, dark stools, changes in stool caliber, and urinary frequency/urgency. 12 point ROS negative except as indicated in HPI Past Medical History: Hepatitis C, Chronic Pancreatitis, DM, HLD, Arthritis, chronic back pain Past Surgical History: Appendectomy, Cholecystectomy, Pancreatic Pseudocyst rese ction Family History: Mother-Bone Cancer, Father- from [place] at 53 Social History: denies ETOH use, quit cigars 6 months ago, smoked 3 cigars daily for 4 years prior to quit date, denies illicit drug use Allergy: Hair Dye Home meds: please see [facility] Primary Care Physician: Dr. Kelsey in [facility] GI Physician: Dr. Valentin in [facility] Pharmacy: [facility] Physical Examination: - Constitutional Appears: No Acute Distress - Head Exam Head Exam: ATRAUMATIC, NORMAL INSPECTION, NORMOCEPHALIC - Eye Exam Eye Exam: EOMI, Normal appearance, PERRL - ENT Exam ENT Exam: Mucous Membranes Dry - Neck Exam Neck exam: Positive for: Normal Inspection - Respiratory Exam Respiratory Exam: Clear to Auscultation Bilateral, NORMAL BREATHING PATTERN - Cardiovascular Exam Cardiovascular Exam: bradycardic, +s1, +s2, normal rhythm - GI/Abdominal Exam GI & Abdominal Exam: Normal Bowel Sounds, Soft, Non- distended, TTP diffusely in all quadrants - Extremities Exam Extremities exam: Positive for: normal inspection - Back Exam Back exam: NORMAL INSPECTION, no CVA tenderness bilaterally - Neurological Exam Neurological exam: Alert, CN II-XII Intact, Normal Gait, Oriented x3, Reflexes Normal - Psychiatric Exam Psychiatric exam: Normal Affect, Normal Mood - Skin Skin Exam: Dry, Intact, Normal Color, Warm Assessment and Plan: Patient is a 42 year old male with a past medical history of HCV, Arthritis, chronic pancreatitis, pancreatic cysts, DM, hypertriglyceridemia who was admitted for evaluation and treatment of abdominal pain with associated nausea and vomiting. Work up in ED consisted of basic lab work, CT abd/pelvis without contrast, morphine, and zofran. 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 Fluid-filled distended stomach suggestive of gastroparesis. 4 mm left renal nonobstructing stone. - 12/01/2017 Abdomen/pelvis CT without contrast- Suspect solid enhancing mass in the pancreatic head. Two cyst/cystic masses in the pancreatic body/ tail. No evidence of acute pancreatitis. Possible chronic splenic venous thrombosis. Portal vein appears patent. Extensive gastric varices with left upper quadrant varices and distal esophageal varices noted. Nonspecific antritis and duodenitis. - AST/ALT, lipase, bilirubin are all within normal range - keep patient NPO - IVF NS @ 100cc/hr - lipase/Protease/Amylase supplement - zofran prn nausea - GI consulted- appreciate recommendations Nephrolithiasis, Dysuria - 4 mm left renal nonobstructing stone on noncontrast CT of abdomen/pelvis - UA ordered and pending - urine culture ordered and pending - strain urine - toradol prn moderate pain Constipation - patient states his outpatient physician discontinued linzess - hold home docusate, start patient on miralax- further recs as per GI Hx of DM - hold home meds due to change in diet tolerance - fingersticks ACHS - ISS Lispro medium - HgbA1c ordered and pending Hx of Hypertriglyceridemia - continue home lovaza, tricor, lopid, and lipitor - patient states his outpatient physician discontinued welchol - lipid panel ordered and pending Hx of Insomnia - continue home ambien Prophylaxis - DVT ppx- Subq heparin - GI ppx- famotidine Patient case discussed with and plan approved by attending physician, Dr. Guzman. Present on Admission - Present on Admission Any Indicators Present on Admission: No Past Patient History - Infectious Disease Hx of Infectious Diseases: None - Tetanus Immunizations Tetanus Immunization: Unknown - Past Medical History & Family History Past Medical History?: Yes - Past Social History Smoking Status: Heavy Smoker > 10 Cigarettes Daily - CARDIAC Hx Cardiac Disorders: Yes Hx Cardia Arrhythmia: Yes (bradycardia) Hx Hypertension: Yes Hx Peripheral Vascular Disease: Yes - PULMONARY Hx Respiratory Disorders: Yes (chronic dry cough x 8 months since sx) - NEUROLOGICAL Hx Neurological Disorder: Yes Hx Dizziness: Yes (falls from dizziness since 2013) - HEENT Hx HEENT Problems: Yes (blurry vision) [place]Comment[place] - RENAL Hx Chronic Kidney Disease: Yes Hx Kidney Stones: Yes - ENDOCRINE/METABOLIC Hx Endocrine Disorders: Yes Hx Diabetes Mellitus Type 1: Yes - HEMATOLOGICAL/ONCOLOGICAL Hx Blood Disorders: Yes Hx Hepatitis C: Yes - INTEGUMENTARY Hx Dermatological Problems: Yes Other/Comment: chronic itchy skin since "surgery 8 months ago" - MUSCULOSKELETAL/RHEUMATOLOGICAL Hx Falls: Yes ("dizzy and falling since 2013") - GASTROINTESTINAL Hx Gastrointestinal Disorders: Yes (chronic constipation) Hx Gall Bladder Disease: Yes (gallstones) Hx Gastroesophageal Reflux: Yes Hx Pancreatitis: Yes - GENITOURINARY/GYNECOLOGICAL Hx Genitourinary Disorders: Yes (burning on urination "sometimes') Hx Urinary Tract Infection: Yes - PSYCHIATRIC Hx Depression: Yes Hx Substance Use: No - SURGICAL HISTORY Hx Appendectomy: Yes Hx Cholecystectomy: Yes Other/Comment: 2009 in [place] ap ruptured damagec pancreas, had sx on pancreas and gb sx at [facility] 8 months ago - ANESTHESIA Hx Anesthesia: Yes Meds Allergies/Adverse Reactions: Allergies Allergy/AdvReac Type Severity Reaction Status Date / Time dy Allergy Mild ITCHING Uncoded 08/20/18 23:27 hair color dye Allergy RASH Uncoded 08/20/18 23:27 Results - Vital Signs Recent Vital Signs: Last Vital Signs Temp 97.8 F 12/03/18 23:29 Pulse 84 08/20/18 23:29 Resp 20 08/20/18 23:29 BP 131/77 08/20/18 23:29 Pulse Ox 100 08/20/18 23:29 - Labs Result Diagrams: 08/20/18 23:35 08/20/18 23:35 Labs: Laboratory Results - last 24 hr 08/20/18 08/20/18 08/20/18 23:29 23:35 23:35 WBC 7.8 RBC 4.90 Hgb 12.9 L Hct 37.0 L MCV 75.5 L MCH 26.3 MCHC 34.9 RDW 14.1 Plt Count 228 MPV 10.2 Sodium 135 Potassium 3.9 Chloride 100 Carbon Dioxide 26 Anion Gap 14 BUN 18 Creatinine 0.6 L Est GFR ( Amer) > 60 Est GFR (Non-Af Amer) > 60 POC Glucose (mg/dL) 235 H Random Glucose 271 H Calcium 9.4 Total Bilirubin 1.0 AST 19 ALT 20 Alkaline Phosphatase 106 Total Protein 8.4 H Albumin 4.2 Globulin 4.2 Albumin/Globulin Ratio 1.0 L Lipase 143 <Josey Guzman - Last Filed: 08/21/18 05:42> Results - Vital Signs Recent Vital Signs: Last Vital Signs Temp 97.8 F 08/20/18 23:29 Pulse 59 L 08/21/18 04:32 Resp 18 08/21/18 04:32 BP 134/81 08/21/18 03:25 Pulse Ox 100 08/21/18 03:25 - Labs Result Diagrams: 08/20/18 23:35 08/20/18 23:35 Labs: Laboratory Results - last 24 hr 08/20/18 08/20/18 08/20/18 23:29 23:35 23:35 WBC 7.8 RBC 4.90 Hgb 12.9 L Hct 37.0 L MCV 75.5 L MCH 26.3 MCHC 34.9 RDW 14.1 Plt Count 228 MPV 10.2 Sodium 135 Potassium 3.9 Chloride 100 Carbon Dioxide 26 Anion Gap 14 BUN 18 Creatinine 0.6 L Est GFR ( Amer) > 60 Est GFR (Non-Af Amer) > 60 POC Glucose (mg/dL) 235 H Random Glucose 271 H Calcium 9.4 Total Bilirubin 1.0 AST 19 ALT 20 Alkaline Phosphatase 106 Total Protein 8.4 H Albumin 4.2 Globulin 4.2 Albumin/Globulin Ratio 1.0 L Lipase 143 Attending/Attestation - Attestation I have personally seen and examined this patient.: Yes I have fully participated in the care of the patient.: Yes I have reviewed all pertinent clinical information: Yes Notes (Text): 08/21/18 05:41 Patient was seen when he was in bed # 6 in the ER . Agree with history , physical examination, assessment and plan.
[2018-08-21] MEDS ORDERED: Sodium Chloride 0.9% 1,000 ML IV SCH (03:45)
[2018-08-21 04:50] VITALS: BMI 28.9
[2018-08-21 07:21] LABS: BASO # 0.03 K/mm3 (0.0-2.0); BASO % 0.4 % (0.0-3.0); EOS # 0.1 (0.0-0.7); EOS % 0.7 % (1.5-5.0); GRAN # 4.74 (1.4-6.5); GRAN % 67.2 % (50.0-68.0); HEMOGLOBIN 11.7 g/dL (14.0-18.0); LYMPH # 1.8 (1.2-3.4); LYMPH % 25.6 % (22.0-35.0); MEAN CORPUSCULAR HEMOGLOBIN 25.8 pg (25.0-35.0); MEAN CORPUSCULAR HGB CONC 33.9 g/dl (31.0-37.0); MEAN PLATELET VOLUME 10.1 fl (7.0-11.0); MONO # 0.4 (0.1-0.6); MONO % 6.1 % (1.0-6.0); RBC 4.54 10^6/uL (3.5-6.1); RED CELL DISTRIBUTION WIDTH 14.1 % (11.5-14.5); WHITE BLOOD COUNT 7.1 10^3/uL (4.5-11.0)
[2018-08-21] MEDS: Lactated Ringer's 1,000 ML IV SCH ×2 (07:43→17:44)
[2018-08-21 07:47] LABS: LDL CHOLESTEROL 87 mg/dL (0-129)
[2018-08-21 08:06] LABS: BLOOD UREA NITROGEN 16 mg/dL (7-21); GFR NON-AFRICAN AMERICAN > 60
[2018-08-21 08:07] LABS: ALBUMIN 3.7 g/dL (3.0-4.8); ALT/SGPT 21 U/L (7-56); AST/SGOT 23 U/L (17-59); CALCIUM 8.6 mg/dL (8.4-10.5)
[2018-08-21 08:08] LABS: HDL CHOLESTEROL 18 mg/dL (29-60)
--- NOTE | 2018-08-21 09:12 | RAD ---
Date of service: 08/20/2018 PROCEDURE: CHEST RADIOGRAPH, 1 VIEW HISTORY: abdominal pain COMPARISON: 05/01/2017 FINDINGS: LUNGS: Clear. PLEURA: No pneumothorax or pleural fluid seen. CARDIOVASCULAR: No aortic atherosclerotic calcification present. Normal. OSSEOUS STRUCTURES: No significant abnormalities. VISUALIZED UPPER ABDOMEN: Normal. OTHER FINDINGS: None. IMPRESSION: No active disease.
[2018-08-21] MEDS ORDERED: INSULIN ASPART PROT SC SCH (10:00)
[2018-08-21] MEDS ORDERED: INSULN ASP SC SCH (10:00)
[2018-08-21] MEDS ORDERED: Insulin Lispro (humaLOG) MIX 75/25(10 ml) SC SCH ×2 (10:00→10:03)
[2018-08-21] MEDS ORDERED: [UNRECOGNIZED DRUG - OTHER] SC SCH (10:00)
[2018-08-21] MEDS: AMYLASE PO SCH ×3 (10:22→18:00)
[2018-08-21] MEDS: PROTEASE PO SCH ×3 (10:22→18:00)
[2018-08-21] MEDS: LIPASE PO SCH ×3 (10:22→18:00)
--- NOTE | 2018-08-21 10:22 | CT ---
Date of service: 08/21/2018 PROCEDURE: CT Abdomen and Pelvis without intravenous contrast HISTORY: Abdominal pain COMPARISON: 12/01/2017 TECHNIQUE: CT scan of the abdomen and pelvis was performed without administration of intravenous contrast. Oral contrast was not administered. Coronal and sagittal reformatted images were obtained. . Radiation dose: Total exam DLP = 347.26 mGy-cm. This CT exam was performed using one or more of the following dose reduction techniques: Automated exposure control, adjustment of the mA and/or kV according to patient size, and/or use of iterative reconstruction technique. FINDINGS: LOWER THORAX: The visualized lungs are clear. LIVER: Mild hepatomegaly. No intrahepatic ductal dilatation. GALLBLADDER AND BILE DUCTS: Surgically absent. No biliary dilatation PANCREAS: There is a 4.1 x 3.4 cm cystic mass in the body of the pancreas with anastomosis to the greater curvature of the stomach. SPLEEN: Mild splenomegaly. ADRENALS: Normal in size. No discrete nodule. KIDNEYS AND URETERS: Normal in size. No hydronephrosis. There is a 3 mm nonobstructing stone in the lower pole of the left kidney. VASCULATURE: No aortic aneurysm. No aortic atherosclerotic calcification or mural plaque present. Short gastric and perisplenic varices. BOWEL: The small bowel loops are normal in caliber. The colon is normal in size. No bowel dilatation or wall thickening. No bowel obstruction. APPENDIX: Normal appendix. PERITONEUM: No free fluid. No free air. LYMPH NODES: No enlarged lymph nodes. BLADDER: Well distended and grossly normal in appearance. REPRODUCTIVE: The uterus is normal in size BONES: No acute fracture. OTHER FINDINGS: None. IMPRESSION: 3 mm nonobstructing stone in the lower pole of the left kidney. Hepatosplenomegaly, perisplenic and gastric varices. Stable cyst in the body of the pancreas with anastomosis to the greater curvature of the stomach. A preliminary report was provided by [employer].
[2018-08-21] MEDS: POLYETHYLENE GLYCOL 3350 17 GM/Dose PACKET PO SCH (10:27)
[2018-08-21] MEDS: Insulin Reg-MEDIUM-Coverage SC SCH ×3 (10:27→17:46)
[2018-08-21] MEDS: Omega-3-Acid Ethyl Esters 1 GM Cap PO SCH ×2 (10:28→17:45)
--- NOTE | 2018-08-21 16:22 | CON ---
DATE: 08/21/2018 HISTORY OF PRESENT ILLNESS: I saw Mr. Oh this morning. He is a 43-year-old male known to consultants, with extensive GI history which includes hepatitis C, chronic pancreatitis, pancreatic resection due to multiple pseudocysts, diabetes, elevated lipids, and appendectomy, who presents as usual with complaints of diffuse abdominal pain, failure to thrive, fatigue, nausea and vomiting over the past several days prior to admission. The patient denied any hematemesis or rectal bleeding. He is followed by Dr. Atwood, who is his primary care doctor. The patient has had multiple admissions for similar complaints. At bedside this morning, the patient indicates the pain is somewhat to previous except the increase in intensity over the past couple of days. He has not been reevaluated recently over [facility] where he obtained his pancreatic resection on prior occasion. He also indicates dyspnea on exertion and the pain is characterized as 8-9/10, diffuse. PHYSICAL EXAMINATION: VITAL SIGNS: I reviewed this patient's vital signs. HEENT: Noncontributory. LUNGS: Decreased breath sounds, basilar on both sides. HEART: Regular rhythm. ABDOMEN: Not distended. Soft. Tender in all quadrants except for fullness in the area of the left paraumbilical and left upper quadrant. LABORATORY DATA: Review of laboratory data Indicates normal white count, H and H 12.9 and 37, and platelet count is 228. His lipase is 143, normal transaminase and bilirubin, but his glucose is 271. His alkaline phosphatase is 106. I reviewed the CT images of this patient and the preliminary interpretation of this includes irregularity of the liver. There were no masses. The patient is status post cholecystectomy with non-dilated extrahepatic biliary system. Again, as indicated previously, the patient had a midbody pancreatic pseudocyst as well as a thrombosis of splenic vein, the common collaterals noted in the area around the splenic and splenic collateral. He did have some degree of bowel gas, consistent with some degree of gastroparesis. There is no evidence of lymphadenopathy on scan. ASSESSMENT: This is a 43-year-old male admitted for complaints of abdominal pain again. The patient has evidence of chronic hepatitis C, chronic pancreatitis, and diabetes. He has continued abdominal pain. There does not appear to be active disease grossly in the liver or evidence of liver masses. Also, there does not appear to be evidence of any biliary obstruction bu CT criteria. Not much to offer in this particular case except to suggest continuing the patient on either proton-pump inhibitors or H2 sourav on a daily basis. He needs chronic pain medications, as well as medication for nausea. His fluids consist at least right now of of Ringer's lactate. Lucina Scott DO, PhD MTDD
--- NOTE | 2018-08-21 18:50 | CARD ---
APPROVED REPORT Date of service: 08/20/2018 EKG Measurement Heart [id number] <Conclusion> Sinus bradycardia Left axis deviation Septal infarct, age undetermined Abnormal ECG
[2018-08-21 21:38] LABS: PH,URINE 6.5 (4.7-8.0); URINE BILIRUBIN NEGATIVE (NEGATIVE); URINE BLOOD NEGATIVE (NEGATIVE); URINE GLUCOSE (UA) 500 mg/dL (NEGATIVE); URINE LEUKOCYTE ESTERASE NEGATIVE Leu/uL (NEGATIVE); URINE PROTEIN NEGATIVE mg/dL (<30 mg/dL)
[2018-08-21 21:42] LABS: URINE APPEARANCE CLEAR (CLEAR); URINE COLOR YELLOW (YELLOW)
[2018-08-22] MEDS: Insulin Reg-MEDIUM-Coverage SC SCH ×5 (00:20→21:35)
[2018-08-22 07:27] LABS: BASO # 0.04 K/mm3 (0.0-2.0); BASO % 0.9 % (0.0-3.0); EOS # 0.1 (0.0-0.7); EOS % 1.1 % (1.5-5.0); GRAN # 2.77 (1.4-6.5); GRAN % 60.1 % (50.0-68.0); LYMPH # 1.4 (1.2-3.4); LYMPH % 29.6 % (22.0-35.0); MEAN CELL VOLUME 76.8 fl (80.0-105.0); MEAN CORPUSCULAR HEMOGLOBIN 26.3 pg (25.0-35.0); MEAN CORPUSCULAR HGB CONC 34.3 g/dl (31.0-37.0); MEAN PLATELET VOLUME 10.4 fl (7.0-11.0); MONO # 0.4 (0.1-0.6); MONO % 8.3 % (1.0-6.0); RBC 4.56 10^6/uL (3.5-6.1); RED CELL DISTRIBUTION WIDTH 13.9 % (11.5-14.5); WHITE BLOOD COUNT 4.6 10^3/uL (4.5-11.0)
[2018-08-22 07:42] LABS: ALBUMIN 3.6 g/dL (3.0-4.8); ALT/SGPT 19 U/L (7-56); AST/SGOT 19 U/L (17-59); BLOOD UREA NITROGEN 13 mg/dL (7-21); CALCIUM 8.8 mg/dL (8.4-10.5); GFR NON-AFRICAN AMERICAN > 60
[2018-08-22] MEDS: Lactated Ringer's 1,000 ML IV SCH (07:59)
[2018-08-22] MEDS: Insulin Lispro (humaLOG) MIX 75/25(10 ml) SC SCH ×3 (08:01→18:00)
--- NOTE | 2018-08-22 09:12 | PN ---
DATE: 08/22/2018 SUBJECTIVE: I saw Mr Oh this morning. He is a 43-year-old male known to consultants, with past medical hepatitis C, chronic hepatitis, pancreatic resection due to multiple pseudocysts, diabetes, presented with complaints of diffuse abdominal pain, fatigue, nausea, vomiting and weakness. The patient denied hematemesis or rectal bleeding. He indicated at the bedside this morning that the diet was increased to small volumes of clears which he appears to be handling well. He indicated that his bowel movements are liquid, but no blood noted. The patient still feels the same apparently, this is on date of admission. PHYSICAL EXAMINATION: VITAL SIGNS: I reviewed this patient's vital signs. HEENT: Noncontributory. LUNGS: Decreased breath sounds, basilar on both sides. HEART: Regular rhythm. ABDOMEN: Not distended. Soft. Tender especially in epigastric and the left paraumbilical and left upper quadrant. This has not changed. LABORATORY DATA: I reviewed the most recent laboratory data which showed some dilutional effect. The CMP is noncontributory except for triglycerides which are 330. OVERALL ASSESSMENT: This 43-year-old male with a history of extensive pancreatic disease, chronic hepatitis C and diabetes. He has chronic abdominal pain due to the later. Unfortunately, as indicated previously, I don't have much to offer in this particular case except to treat the patient on compassionate basis. I Informed them on multiple occasions that he needs [facility]. Lucian Scott DO, PhD MTDJose R
[2018-08-22] MEDS: Omega-3-Acid Ethyl Esters 1 GM Cap PO SCH ×2 (10:25→18:00)
[2018-08-22] MEDS: PROTEASE PO SCH ×3 (10:25→18:00)
[2018-08-22] MEDS: POLYETHYLENE GLYCOL 3350 17 GM/Dose PACKET PO SCH (10:25)
[2018-08-22] MEDS: LIPASE PO SCH ×3 (10:25→18:00)
[2018-08-22] MEDS: AMYLASE PO SCH ×3 (10:25→18:00)
[2018-08-22 15:07] VITALS: RESP 18
--- NOTE | 2018-08-22 17:51 | CP.PCM.PN ---
<Jose G Vazquez - Last Filed: 08/22/18 17:48> Subjective - Date & Time of Evaluation Date of Evaluation: 08/22/18 Time of Evaluation: 17:48 - Subjective Subjective: Jose G Vazquez, PGY-1, Internal Medicine Progress Note for Dr. Lackey Patient seen and examined at bedside. Patient had no acute overnight events. Patient complained of nausea, worsened abdominal pain, and one episode of diarrhea after 4 days of no stool. Patient has been tolerating clear liquid diet well. Patient denies chest pain, wheezing, shortness of breath, vomiting, constipation, or blood in stool. 12-point ROS was unremarkable except for what is mentioned above. Objective - Vital Signs/Intake and Output Vital Signs (last 24 hours): Temp Pulse Resp BP Pulse Ox 97.8 F 58 L 18 120/77 100 08/22/18 14:00 08/22/18 14:00 08/22/18 14:00 08/22/18 14:00 08/22/18 14:00 Intake and Output: 08/22/18 08/22/18 06:59 18:59 Intake Total 360 Balance 360 - Medications Medications: Current Medications Atorvastatin Calcium (Lipitor) 10 mg PO DAILY [facility] Last Admin: 08/22/18 10:21 Dose: 10 mg Famotidine (Pepcid) 20 mg IVP DAILY [facility] Last Admin: 08/22/18 10:21 Dose: 20 mg Fenofibrate (Tricor) 145 mg PO DAILY [facility] Last Admin: 08/22/18 10:25 Dose: 145 mg Gemfibrozil (Lopid) 600 mg PO BID [facility] Last Admin: 08/22/18 10:21 Dose: 600 mg Lactated Ringer's (Lactated Ringer's) 1,000 mls @ 85 mls/hr IV .[id number] [facility] Stop: 08/24/18 05:31 Last Admin: 08/22/18 07:59 Dose: 85 mls/hr Insulin Human Regular (Humulin R Med) 0 units SC ACHS [facility]; Protocol Last Admin: 08/22/18 12:50 Dose: 3 unit Insulin Lispro Protam/Lispro Human (Humalog Mix 75/25) 10 units SC BID [facility] Last Admin: 08/22/18 10:20 Dose: Not Given Ketorolac Tromethamine (Toradol) 15 mg IVP Q6H [facility] Last Admin: 08/22/18 15:55 Dose: 15 mg Lisinopril (Zestril) 2.5 mg PO DAILY [facility] Last Admin: 08/22/18 10:27 Dose: 2.5 mg Metoclopramide HCl (Reglan) 5 mg IVP ACHS [facility] Last Admin: 08/22/18 12:55 Dose: 5 mg Lipase/Protease/Amylase [Keil Leal 36 ,000 Units Capsule] (Home Med) 2 tab PO TID [facility] Last Admin: 08/22/18 10:25 Dose: Not Given [id number] Ethyl Esters (Lovaza) 2 gm PO BID [facility] Last Admin: 08/22/18 10:25 Dose: Not Given Zolpidem Tartrate (Ambien) 5 mg PO HS [facility]; Protocol Last Admin: 08/21/18 22:13 Dose: 5 mg - Labs Labs: 08/22/18 07:00 08/22/18 07:00 - Constitutional Appears: Unkempt - Head Exam Head Exam: ATRAUMATIC, NORMAL INSPECTION, NORMOCEPHALIC - Eye Exam Eye Exam: EOMI, PERRL - Respiratory Exam Respiratory Exam: Clear to Ausculation Bilateral, NORMAL BREATHING PATTERN - Cardiovascular Exam Cardiovascular Exam: REGULAR RHYTHM - GI/Abdominal Exam GI & Abdominal Exam: Soft, Tenderness, Normal Bowel Sounds. absent: Rebound Additional comments: voluntary guarding - Extremities Exam Extremities Exam: Full ROM - Neurological Exam Neurological Exam: Alert, Awake, Oriented x3 Neuro motor strength exam: Left Upper Extremity: 5, Right Upper Extremity: 5, Left Lower Extremity: 5, Right Lower Extremity: 5 Assessment and Plan - Assessment and Plan (Free Text) Assessment: 43 year old male with past medical history of hepatitis C, arthritis, chronic pancreatitis, pancreatic pseudocysts, diabetes mellitus type II presents with diffuse, epigastric abdominal pain. Patient initially had 30 bouts of nonbloodly, bilious emesis prior to admission. Plan: Abdominal pain likely 2/2 to history of pancreatic pseudocyst vs. diabetic gastroparesis vs. chronic pancreatitis -Patient has had multiple admissions for unresolving pancreatic pseudocyst -Abdominal CT: unchanged mid-pancreatic body pseudocyst with anastamosis in stomach. Patient has unchanged chronic thrombosis of splenic vein with prominent collaterals surrounding stomach and hilum. 4 mm nonobstructing renal stone visualized. -Lipase: 143 -Patient's diet progressed to full liquid diet from clear liquid diet today. Progress as tolerated -Toradol 15 mg Q6 for pain. -Lactated ringer at 85 cc/hr -Continue with reglan for nausea and suspected gastroparesis. EKG shows QTc of 416. -Continue with creon -Dr. Scott, GI, was consulted for the case, who recommended continuing patient on PPI or H2 sourav. Diarrhea likely due to laxative use vs. doubtful C. Difficile stool toxin -Patient has had one episode of nonbloody diarrhea. -Miralax stopped. -C. Dif. stool toxin ordered to rule out infection. -Follow up results of stool toxin. Diabetes Mellitus Type II -Last blood glucose level was 185 -Hemoglobin A1c: 12.3 -UA: 500 glucose, 40 ketones -Continue with humalog 75/25 10 U BID and medium dose sliding scale insulin. Hypertriglyceridemia -Triglycerides: 330, HDL: 18 -Cholesterol, LDL unremarkable -Continue with lovaza, lopid, tricor, and lipitor Hypertension -Systolic blood pressure ranged from 120-139 today. -Continue with lisinopril Microcytic anemia -Hgb: 12.0 -Continue to monitor. GI prophylaxis: protonix 20 mg daily DVT prophylaxis: SCD Patient plan discussed with Dr. Lackey. <Mohit Lackey - Last Filed: 08/22/18 18:46> Objective - Vital Signs/Intake and Output Vital Signs (last 24 hours): Temp Pulse Resp BP Pulse Ox 97.8 F 58 L 18 120/77 100 08/22/18 14:00 08/22/18 14:00 08/22/18 14:00 08/22/18 14:00 08/22/18 14:00 Intake and Output: 08/22/18 08/22/18 06:59 18:59 Intake Total 360 Balance 360 - Medications Medications: Current Medications Atorvastatin Calcium (Lipitor) 10 mg PO DAILY [facility] Last Admin: 08/22/18 10:21 Dose: 10 mg Famotidine (Pepcid) 20 mg IVP DAILY [facility] Last Admin: 08/22/18 10:21 Dose: 20 mg Fenofibrate (Tricor) 145 mg PO DAILY [facility] Last Admin: 08/22/18 10:25 Dose: 145 mg Gemfibrozil (Lopid) 600 mg PO BID [facility] Last Admin: 08/22/18 10:21 Dose: 600 mg Lactated Ringer's (Lactated Ringer's) 1,000 mls @ 85 mls/hr IV .[id number] [facility] Stop: 08/24/18 05:31 Last Admin: 08/22/18 07:59 Dose: 85 mls/hr Insulin Human Regular (Humulin R Med) 0 units SC [facility]; Protocol Last Admin: 08/22/18 12:50 Dose: 3 unit Insulin Lispro Protam/Lispro Human (Humalog Mix 75/25) 10 units SC BID [facility] Last Admin: 08/22/18 10:20 Dose: Not Given Ketorolac Tromethamine (Toradol) 15 mg IVP Q6H [facility] Last Admin: 08/22/18 15:55 Dose: 15 mg Lisinopril (Zestril) 2.5 mg PO DAILY [facility] Last Admin: 08/22/18 10:27 Dose: 2.5 mg Metoclopramide HCl (Reglan) 5 mg IVP [facility] Last Admin: 08/22/18 12:55 Dose: 5 mg Lipase/Protease/Amylase [Creon Dr 36 ,000 Units Capsule] (Home Med) 2 tab PO TID [facility] Last Admin: 08/22/18 10:25 Dose: Not Given [id number]-[id number] Ethyl Esters (Lovaza) 2 gm PO BID [facility] Last Admin: 08/22/18 10:25 Dose: Not Given Pantoprazole Sodium (Protonix Ec Tab) 20 mg PO 0600 [facility] Zolpidem Tartrate (Ambien) 5 mg PO HS [facility]; Protocol Last Admin: 08/21/18 22:13 Dose: 5 mg - Labs Labs: 08/22/18 07:00 08/22/18 07:00 Attending/Attestation - Attestation I have personally seen and examined this patient.: Yes I have fully participated in the care of the patient.: Yes I have reviewed all pertinent clinical information, including history, physical exam and plan: Yes Notes (Text): 08/22/18 18:41 43 year old male with past medical history of hepatitis C, chronic pancreatitis, pancreatic pseudocysts and diabetes who presented with complaint of abdominal pain with nausea/vomiting. CT scan showed unchanged pancreatic pseudocyst, unchanged nonobstructing renal stone. Symptoms likely secondary to chronic pancreatitis +/- diabetic gastroparesis. Continue with iv fluids, analgesics, protonix and reglan. GI is following. Continue with liquid diet as tolerated. Patient will need close outpatient GI follow up at the [facility] with GI / pancreatic specialist. Mohit Lackey MD Hospitalist.
[2018-08-23] MEDS ORDERED: Pantoprazole 20 mg EC Tab PO SCH (06:00)
[2018-08-23 07:19] LABS: BASO # 0.04 K/mm3 (0.0-2.0); BASO % 0.9 % (0.0-3.0); EOS # 0.1 (0.0-0.7); EOS % 1.6 % (1.5-5.0); GRAN # 2.21 (1.4-6.5); GRAN % 49.1 % (50.0-68.0); HEMOGLOBIN 11.7 g/dL (14.0-18.0); LYMPH # 1.9 (1.2-3.4); LYMPH % 41.3 % (22.0-35.0); MEAN CELL VOLUME 75.9 fl (80.0-105.0); MEAN CORPUSCULAR HEMOGLOBIN 25.8 pg (25.0-35.0); MEAN PLATELET VOLUME 10.4 fl (7.0-11.0); MONO # 0.3 (0.1-0.6); MONO % 7.1 % (1.0-6.0); RBC 4.53 10^6/uL (3.5-6.1); RED CELL DISTRIBUTION WIDTH 13.7 % (11.5-14.5); WHITE BLOOD COUNT 4.5 10^3/uL (4.5-11.0)
[2018-08-23 07:32] LABS: ALBUMIN 3.6 g/dL (3.0-4.8); ALT/SGPT 25 U/L (7-56); AST/SGOT 15 U/L (17-59); BLOOD UREA NITROGEN 8 mg/dL (7-21); CALCIUM 8.8 mg/dL (8.4-10.5); GFR NON-AFRICAN AMERICAN > 60
[2018-08-23] MEDS: Insulin Reg-MEDIUM-Coverage SC SCH ×3 (08:48→16:58)
--- NOTE | 2018-08-23 10:21 | PN ---
DATE: 08/23/2018 SUBJECTIVE: I reviewed the progress notes, discussed the clinical case with Mr. Browne who is a 43-year-old male with past medical history of hepatitis C, chronic pancreatitis, pseudocysts status post pancreatic resection. The patient was admitted with complaints of nausea, vomiting and abdominal pain. Discussion with the nurse on the floor. The patient apparently slept okay last night with no agitations, clinical symptoms are starting at the daytime. As indicated in my note previously, there is really not too much I can offer with this patient except for conservative management in the form of IV fluids, analgesics, Protonix, etc. Advance this patients diet as tolerated. Lucian Scott DO, PhD MTDJose R
[2018-08-23] MEDS: Omega-3-Acid Ethyl Esters 1 GM Cap PO SCH (10:46)
[2018-08-23] MEDS: AMYLASE PO SCH ×2 (10:48→15:00)
[2018-08-23] MEDS: LIPASE PO SCH ×2 (10:48→15:00)
[2018-08-23] MEDS: PROTEASE PO SCH ×2 (10:48→15:00)
[2018-08-23] MEDS: Insulin Lispro (humaLOG) MIX 75/25(10 ml) SC SCH (10:53)
--- NOTE | 2018-08-23 13:37 | CP.PCM.DIS ---
<Jose G Vazquez - Last Filed: 08/23/18 13:34> Provider - Provider Date of Admission: 08/21/18 02:35 Attending physician: Mohit Lackey MD Primary care physician: Shani Atwood DO Consults: 08/21/18 03:45 Physician Consult Routine Comment: [place] Consulting Provider: Lucian Scott Consulting Physician: Lucian Scott Reason for Consult: Intractable abdominal pain Time Spent in preparation of Discharge (in minutes): 60 Diagnosis - Discharge Diagnosis (1) Chronic pancreatitis Status: Acute (2) Intractable vomiting with nausea Status: Acute (3) Intractable abdominal pain Status: Chronic Priority: Medium Hospital Course - Lab Results Lab Results: Most Recent Lab Values WBC 4.5 10^3/uL (4.5-11.0) 08/23/18 06:45 RBC 4.53 10^6/uL (3.5-6.1) 08/23/18 06:45 Hgb 11.7 g/dL (14.0-18.0) L 08/23/18 06:45 Hct 34.4 % (42.0-52.0) L 08/23/18 06:45 MCV 75.9 fl (80.0-105.0) L 08/23/18 06:45 MCH 25.8 pg (25.0-35.0) 08/23/18 06:45 MCHC 34.0 g/dl (31.0-37.0) 08/23/18 06:45 RDW 13.7 % (11.5-14.5) 08/23/18 06:45 Plt Count 168 10^3/uL (120.0-450.0) 08/23/18 06:45 MPV 10.4 fl (7.0-11.0) 08/23/18 06:45 Gran % 49.1 % (50.0-68.0) L 08/23/18 06:45 Lymph % (Auto) 41.3 % (22.0-35.0) H 08/23/18 06:45 [place] % (Auto) 7.1 % (1.0-6.0) H 08/23/18 06:45 Eos % (Auto) 1.6 % (1.5-5.0) 08/23/18 06:45 Baso % (Auto) 0.9 % (0.0-3.0) 08/23/18 06:45 Gran # 2.21 (1.4-6.5) 08/23/18 06:45 Lymph # (Auto) 1.9 (1.2-3.4) 08/23/18 06:45 [place] # (Auto) 0.3 (0.1-0.6) 08/23/18 06:45 Eos # (Auto) 0.1 (0.0-0.7) 08/23/18 06:45 Baso # (Auto) 0.04 K/mm3 (0.0-2.0) 08/23/18 06:45 Sodium 138 mmol/L (132-148) 08/23/18 06:45 Potassium 4.2 mmol/L (3.6-5.0) 08/23/18 06:45 Chloride 107 mmol/L (98-107) 08/23/18 06:45 Carbon Dioxide 26 mmol/L (21-33) 08/23/18 06:45 Anion Gap 10 (10-20) 08/23/18 06:45 BUN 8 mg/dL (7-21) 08/23/18 06:45 Creatinine 0.6 mg/dl (0.8-1.5) L 08/23/18 06:45 Est GFR ( Amer) > 60 08/23/18 06:45 Est GFR (Non-Af Amer) > 60 12 06:45 POC Glucose (mg/dL) 320 mg/dL (65-110) H 08/23/18 12:09 Random Glucose 196 mg/dL (70-110) H 08/23/18 06:45 Hemoglobin A1c 12.3 % (4.2-6.5) H 08/21/18 07:00 Calcium 8.8 mg/dL (8.4-10.5) 08/23/18 06:45 Magnesium 1.8 mg/dL (1.7-2.2) 08/21/18 07:00 Total Bilirubin 0.7 mg/dL (0.2-1.3) 08/23/18 06:45 AST 15 U/L (17-59) L D 08/23/18 06:45 ALT 25 U/L (7-56) 08/23/18 06:45 Alkaline Phosphatase 88 U/L (38-126) 08/23/18 06:45 Total Protein 7.2 g/dL (5.8-8.3) 08/23/18 06:45 Albumin 3.6 g/dL (3.0-4.8) 08/23/18 06:45 Globulin 3.6 gm/dL 08/23/18 06:45 Albumin/Globulin Ratio 1.0 (1.1-1.8) L 08/23/18 06:45 Triglycerides 330 mg/dL (35-160) H 08/21/18 07:00 Cholesterol 152 mg/dL (130-200) 08/21/18 07:00 LDL Cholesterol Direct 87 mg/dL (0-129) 08/21/18 07:00 HDL Cholesterol 18 mg/dL (29-60) L 08/21/18 07:00 Lipase 143 U/L (23-300) 08/20/18 23:35 Urine Color Yellow (YELLOW) 08/21/18 20:25 Urine Appearance Clear (CLEAR) 08/21/18 20:25 Urine pH 6.5 (4.7-8.0) 08/21/18 20:25 Ur Specific Ceres 1.020 (1.005-1.035) 08/21/18 20:25 Urine Protein Negative mg/dL (<30 mg/dL) 08/21/18 20:25 Urine Glucose (UA) 500 mg/dL (NEGATIVE) H 08/21/18 20:25 Urine Ketones 40 mg/dL (NEGATIVE) H 08/21/18 20:25 Urine Blood Negative (NEGATIVE) 08/21/18 20:25 Urine Nitrate Negative (NEGATIVE) 08/21/18 20:25 Urine Bilirubin Negative (NEGATIVE) 08/21/18 20:25 Urine Urobilinogen 1.0 E.U./dL (<1 E.U./dL) H 08/21/18 20:25 Ur Leukocyte Esterase Negative [place]ba/uL (NEGATIVE) 08/21/18 20:25 - Hospital Course Hospital Course: Jose G Vazquez, PGY-1, Internal Medicine Discharge Summary for Dr. Lackey 43 year old male with past medical history of hepatitis C, arthritis, chronic pancreatitis, pancreatic pseudocysts, diabetes mellitus type II presented with diffuse, epigastric abdominal pain. Patient initially had 30 bouts of nonbloodly, bilious emesis prior to admission. Patient has had multiple admissions for unresolving pancreatic pseudocyst and chronic pancreatitis. Abdominal CT showed unchanged mid-pancreatic body pseudocyst with anastamosis in stomach. Patient had unchanged chronic thrombosis of splenic vein with prominent collaterals surrounding stomach and hilum. 4 mm nonobstructing renal stone visualized. Lipase was found to be 143. Patient's creon was continued. Toradol was given for pain. Lactated ringer was initially given as resuscitative fluid. Triglyceride level was 330 and HDL was 18 on this admission. Cholesterol and LDL were unremarkable. Patient was continued on home lovaza, lopid, tricor, and lipitor. Patient's blood glucose level was erratic on this admission. Patient was not complaint with diet restrictions on this admission. Hemoglobin A1c was found to be 12.3. Urinanalysis showed numerous ketones and glucose. Home Humalog 75/25 was given for glucose control. Reglan was given for suspected diabetic gastroparesis and nausea/vomiting. GI was consulted for recommendations, who recommended that patient should follow up with [facility] for further treatment outpatient. Patient was instructed to follow up with PCP, Dr. Kelsey in one week. Patient should follow up with [facility] in [place] at the GI Clinic for further evaluation and treatment fur chronic pancreatitis in one week. Patient was told to take medications as instructed. Patient was instructed to return to emergency department if condition worsens or new concerning symptoms arise. This is a brief summary of events that occurred at the hospital. Please refer to hospital documentation for further details. - Date & Time of H&P Date of H&P: 08/23/18 Time of H&P: 13:34 Discharge Exam - Head Exam Head Exam: ATRAUMATIC, NORMAL INSPECTION, NORMOCEPHALIC - Eye Exam Eye Exam: EOMI Pupil Exam: PERRL - Respiratory Exam Respiratory Exam: Clear to PA & Lateral, UNREMARKABLE - Cardiovascular Exam Cardiovascular Exam: REGULAR RHYTHM, RRR - GI/Abdominal Exam GI & Abdominal Exam: Guarding (voluntary), Normal Bowel Sounds, Soft, Tenderness - Extremities Exam Extremities exam: full ROM - Neurological Exam Neurological exam: Alert, CN II-XII Intact, Oriented x3 Discharge Plan - Discharge Medications Prescriptions: Gemfibrozil [Lopid] 600 mg PO BID #60 tab Insulin Lispro Mix 75/25 [humalog Mix 75/25 75 U/Ml-25 U/Ml 10 Ml] 15 units SC BID #60 ml Metoclopramide HCl [Reglan] 10 mg PO Q8H #9 tablet Pen Needle, Diabetic [Insulin Pen Needle] 1 each MC BID #60 dis.needle - Follow Up Plan Condition: STABLE Disposition: HOME/ ROUTINE Instructions: Abdominal Pain (ED) Additional Instructions: 1.Please follow up with your PMD within 1 week regarding this admission. 2.Continue to take medications given at discharge as prescribed. 3.If you do not have your own gastroneterologist you follow up with consistently. Please follow up with a java golden gate developer at [facility] at the Gastroenterology clinic. Contact number is [phone] Referrals: Shani Atwood DO [Primary Care Provider] - <Mohit Lackey - Last Filed: 08/24/18 07:43> Provider - Provider Date of Admission: 08/21/18 02:35 Attending physician: Mohit Lackey MD Primary care physician: Shani Atwood DO Consults: 08/21/18 03:45 Physician Consult Routine Comment: [place] Consulting Provider: Lucian Scott Consulting Physician: Lucian Scott Reason for Consult: Intractable abdominal pain Hospital Course - Lab Results Lab Results: Micro Results 08/21/18 20:25 Urine Urine Culture - Final No Growth (<1,000 CFU/ML) Most Recent Lab Values WBC 4.5 10^3/uL (4.5-11.0) 08/23/18 06:45 RBC 4.53 10^6/uL (3.5-6.1) 08/23/18 06:45 Hgb 11.7 g/dL (14.0-18.0) L 08/23/18 06:45 Hct 34.4 % (42.0-52.0) L 08/23/18 06:45 MCV 75.9 fl (80.0-105.0) L 08/23/18 06:45 MCH 25.8 pg (25.0-35.0) 08/23/18 06:45 MCHC 34.0 g/dl (31.0-37.0) 08/23/18 06:45 RDW 13.7 % (11.5-14.5) 08/23/18 06:45 Plt Count 168 10^3/uL (120.0-450.0) 08/23/18 06:45 MPV 10.4 fl (7.0-11.0) 08/23/18 06:45 Gran % 49.1 % (50.0-68.0) L 08/23/18 06:45 Lymph % (Auto) 41.3 % (22.0-35.0) H 08/23/18 06:45 [place] % (Auto) 7.1 % (1.0-6.0) H 08/23/18 06:45 Eos % (Auto) 1.6 % (1.5-5.0) 08/23/18 06:45 Baso % (Auto) 0.9 % (0.0-3.0) 08/23/18 06:45 Gran # 2.21 (1.4-6.5) 08/23/18 06:45 Lymph # (Auto) 1.9 (1.2-3.4) 08/23/18 06:45 [place] # (Auto) 0.3 (0.1-0.6) 08/23/18 06:45 Eos # (Auto) 0.1 (0.0-0.7) 08/23/18 06:45 Baso # (Auto) 0.04 K/mm3 (0.0-2.0) 08/23/18 06:45 Sodium 138 mmol/L (132-148) 08/23/18 06:45 Potassium 4.2 mmol/L (3.6-5.0) 08/23/18 06:45 Chloride 107 mmol/L (98-107) 08/23/18 06:45 Carbon Dioxide 26 mmol/L (21-33) 08/23/18 06:45 Anion Gap 10 (10-20) 08/23/18 06:45 BUN 8 mg/dL (7-21) 08/23/18 06:45 Creatinine 0.6 mg/dl (0.8-1.5) L 12 06:45 Est GFR ( Amer) > 60 12 06:45 Est GFR (Non-Af Amer) > 60 12 06:45 POC Glucose (mg/dL) 221 mg/dL (65-110) H 08/23/18 16:46 Random Glucose 196 mg/dL (70-110) H 08/23/18 06:45 Hemoglobin A1c 12.3 % (4.2-6.5) H 08/21/18 07:00 Calcium 8.8 mg/dL (8.4-10.5) 08/23/18 06:45 Magnesium 1.8 mg/dL (1.7-2.2) 08/21/18 07:00 Total Bilirubin 0.7 mg/dL (0.2-1.3) 08/23/18 06:45 AST 15 U/L (17-59) L D 08/23/18 06:45 ALT 25 U/L (7-56) 08/23/18 06:45 Alkaline Phosphatase 88 U/L (38-126) 08/23/18 06:45 Total Protein 7.2 g/dL (5.8-8.3) 08/23/18 06:45 Albumin 3.6 g/dL (3.0-4.8) 08/23/18 06:45 Globulin 3.6 gm/dL 08/23/18 06:45 Albumin/Globulin Ratio 1.0 (1.1-1.8) L 08/23/18 06:45 Triglycerides 330 mg/dL (35-160) H 08/21/18 07:00 Cholesterol 152 mg/dL (130-200) 08/21/18 07:00 LDL Cholesterol Direct 87 mg/dL (0-129) 08/21/18 07:00 HDL Cholesterol 18 mg/dL (29-60) L 08/21/18 07:00 Lipase 143 U/L (23-300) 08/20/18 23:35 Urine Color Yellow (YELLOW) 08/21/18 20:25 Urine Appearance Clear (CLEAR) 08/21/18 20:25 Urine pH 6.5 (4.7-8.0) 08/21/18 20:25 Ur Specific [place] 1.020 (1.005-1.035) 08/21/18 20:25 Urine Protein Negative mg/dL (<30 mg/dL) 08/21/18 20:25 Urine Glucose (UA) 500 mg/dL (NEGATIVE) H 08/21/18 20:25 Urine Ketones 40 mg/dL (NEGATIVE) H 08/21/18 20:25 Urine Blood Negative (NEGATIVE) 08/21/18 20:25 Urine Nitrate Negative (NEGATIVE) 08/21/18 20:25 Urine Bilirubin Negative (NEGATIVE) 08/21/18 20:25 Urine Urobilinogen 1.0 E.U./dL (<1 E.U./dL) H 08/21/18 20:25 Ur Leukocyte Esterase Negative [place]ba/uL (NEGATIVE) 08/21/18 20:25 Attending/Attestation - Attestation I have personally seen and examined this patient.: Yes I have fully participated in the care of the patient.: Yes I have reviewed all pertinent clinical information, including history, physical exam and plan: Yes Notes (Text): 08/23/18 43 year old male with past medical history of hepatitis C, chronic pancreatitis, pancreatic pseudocysts and diabetes who presented with complaint of abdominal pain with nausea/vomiting. CT scan showed unchanged pancreatic pseudocyst, unchanged nonobstructing renal stone. Symptoms were likely secondary to chronic pancreatitis +/- diabetic gastroparesis. He was started on iv fluids, analgesics, protonix and reglan with improvement of symptoms. Diet was advanced which he tolerated. GI was following. Patient is discharged home to follow up with his pmd. Recommended close outpatient GI follow up at [facility] with GI / pancreatic specialist. Mohit Lackey MD Hospitalist.
[2018-08-23 15:32] VITALS: BP 124/61; PULSE 74; TEMP 98.3; O2SAT 99
[2018-08-23] MEDS: Lactated Ringer's 1,000 ML IV SCH (16:56)
== END 2018-08-23 17:38 | disposition home or self-care (01) ==
LOC: ED 23:20 → ERH 08-21 02:35 → 5RNO 08-21 04:07
PROVIDERS: ADMIT Internal Medicine; ATTEND Internal Medicine
DX: K86.1 Other chronic pancreatitis (principal); R11.2 Nausea with vomiting, unspecified; R10.9 Unspecified abdominal pain; B18.2 Chronic viral hepatitis C; E78.1 Pure hyperglyceridemia; E78.5 Hyperlipidemia, unspecified; I10 Essential (primary) hypertension; I82.891 Chronic embolism and thrombosis of other specified veins; I85.00 Esophageal varices without bleeding; I86.4 Gastric varices; E11.43 Type 2 diabetes mellitus with diabetic autonomic (poly)neuropathy; E11.51 Type 2 diabetes mellitus with diabetic peripheral angiopathy without gangrene; K21.9 Gastro-esophageal reflux disease without esophagitis; K29.80 Duodenitis without bleeding; K31.84 Gastroparesis; K59.00 Constipation, unspecified; N20.0 Calculus of kidney; Z79.4 Long term (current) use of insulin; F17.210 Nicotine dependence, cigarettes, uncomplicated; Z80.8 Family history of malignant neoplasm of other organs or systems; Z82.49 Family history of ischemic heart disease and other diseases of the circulatory system; Z87.440 Personal history of urinary (tract) infections; Z87.442 Personal history of urinary calculi; Z90.49 Acquired absence of other specified parts of digestive tract; Z91.19 Patient's noncompliance with other medical treatment and regimen; D50.9 Iron deficiency anemia, unspecified
CPT/HCPCS: 36415; 71045; 74176; 80053; 80061; 81003; 82948; 83036; 83690; 83735; 85025; 85027; 87086; 93005; 96361; 96374; 96375; 96376; 99284; G0378; J1885; J2270; J2405; J2765; J7030; J7120

== ENCOUNTER 2018-09-30 12:03 | Inpatient (IN) | payer OTHER ==
[2018-09-30 12:06] VITALS: BMI 21.7
[2018-09-30] MEDS ORDERED: Sodium Chloride 0.9% 1,000 ML IV STA (12:20)
--- NOTE | 2018-09-30 12:21 | ED PDOC ---
Arrival/HPI - General Chief Complaint: GI Problem Time Seen by Provider: 09/30/18 12:12 Historian: Patient - History of Present Illness Narrative History of Present Illness (Text): 09/30/18 12:18 43 year old male, whose past medical history includes Hepatitis C, chronic pancreatitis, appendectomy, cholecystectomy, pancreatic pseudocyst resection, diabetes, hyperlipidemia, arthritis, and chronic back pain, presents complaining of abdominal pain associate with nausea, vomiting, and diarrhea that began last night. Patient reports he had fish midnight before going to sleep. Patient denies any fever, chills, chest pain, shortness of breath, urinary symptoms, back pain, neck pain, headache, dizziness, or any other complaints. PMD: Dr. Atwood Time/Duration: Other (last night) Symptom Onset: Gradual Symptom Course: Unchanged Activities at Onset: Light Context: Home Past Medical History - Provider Review Nursing Documentation Reviewed: Yes - Past History Past History: No Previous - Infectious Disease Hx of Infectious Diseases: None - Tetanus Immunization Tetanus Immunization: Unknown - Cardiac Hx Hypertension: Yes - Pulmonary Hx Respiratory Disorders: No Hx Asthma: No Hx Bronchitis: No Hx Chronic Obstructive Pulmonary Disease (COPD): No Hx Emphysema: No Hx Pneumonia: No Hx Respiratory Aspiration: No Hx Respiratory Tract Infection: No Hx Sleep Apnea: No Hx Tuberculosis: No - Neurological Hx Neurological Disorder: No Hx Alzheimer's Disease: No HX Cerebrovascular Accident: No Hx Dementia: No Hx Dizziness: No Hx Meningitis: No Hx Migraine: No Hx Parkinson's Disease: No Hx Seizures: No Hx Transient Ischemic Attacks (TIA): No - HEENT Hx HEENT Disorder: No Hx Blind: No Hx Cataracts: No Hx Deafness: No Hx Difficulty Chewing: No Hx Epistaxis: No Hx Glaucoma: No Hx Macular Degeneration: No - Renal Hx Renal Disorder: No Hx Dialysis: No Hx Kidney Stones: No Hx Neurogenic Bladder: No Hx Pyelonephritis: No Hx Renal Cancer: No Hx Renal Failure: No - Endocrine/Metabolic Hx Endocrine Disorders: No Hx Adrenal Cancer: No Hx Diabetes Insipidus: No Hx Diabetes Mellitus Type 1: No Hx Diabetes Mellitus Type 2: Yes Hx Hyperthyroidism: No Hx Hypothyroidism: No Hx Systemic Lupus Erythematosus: No - Hematological/Oncological Hx Blood Disorders: No Hx AIDS: No Hx Anemia: No Hx Cancer: No Hx Chemotherapy: No Hx Cirrhosis: No Hx Hemophilia: No Hx Hepatitis A: No Hx Hepatitis B: No Hx Hepatitis C: Yes Hx Metastasis: No Hx Shingles: No Hx Sickle Cell Disease: No Hx Unexplained Bleeding: No - Integumentary Hx Dermatological Disorder: No Hx Basal Cell Carcinoma: No Hx Eczema: No Hx Melanoma: No Hx Psoriasis: No Hx Squamous Cell Carcinoma: No - Musculoskeletal/Rheumatological Hx Musculoskeletal Disorders: No Hx Arthritis: Yes Hx Back Pain: Yes Hx Degenerative Joint Disease: No Hx Falls: Yes Hx Fractures: No Hx Gout: No Hx Herniated Disk: No Hx Myasthenia Gravis: No Hx Osteoarthritis: No Hx Osteomyelitis: No Hx Osteoporosis: No Hx Rhabdomyolysis: No Hx Spinal Stenosis: No Hx Unsteady Gait: No - Gastrointestinal Hx Gastrointestinal Disorders: No Hx Colostomy: No Hx Crohn's Disease: No Hx Gall Bladder Disease: Yes Hx Gastrointestinal Ulcer: No Hx Ileostomy: No Hx Liver Failure: No Hx Pancreatitis: No HX Swallowing Problems: No - Genitourinary/Gynecological Hx Genitourinary Disorders: No Hx Hematuria: No Hx Incontinence: No Hx Prostate Problems: No Hx Sexually Transmitted Diseases: No Hx Urinary Tract Infection: No - Psychiatric Hx Psychophysiologic Disorder: No Hx Anxiety: No Hx Bipolar Disorder: No Hx Depression: No Hx Emotional Abuse: No Hx Hallucinations: No Hx Panic Disorder: No Hx Post Traumatic Stress Disorder: No Hx Psychosis: No Hx Physical Abuse: No Hx Schizophrenia: No Hx Sexual Abuse: No Hx Substance Use: No - Surgical History Hx Amputation: No Hx Appendectomy: Yes Hx Cardiac Catheterization: No Hx Cholecystectomy: Yes Hx Coronary Stent: No Hx Gastric Bypass Surgery: No Hx Hysterectomy: No Hx Joint Replacement: No Hx Kidney Transplant: No Hx Liver Transplant: No Hx Mastectomy: No Hx Musculoskeletal Surgery: No Hx Open Heart Surgery: No Hx Orthopedic Surgery: No Hx Splenectomy: No Hx Valve Replacement: No - Anesthesia Hx Anesthesia: Yes - Suicidal Assessment Feels Threatened In Home Enviroment: No Family/Social History - Physician Review Nursing Documentation Reviewed: Yes Family/Social History: No Known Family HX Smoking Status: Never Smoked Hx Alcohol Use: No Hx Substance Use: No Hx Substance Use Treatment: No Allergies/Home Meds Allergies/Adverse Reactions: Allergies hair color dye Allergy (Uncoded 09/30/18 12:11) RASH Home Medications: Home Meds Medication Instructions Recorded Confirmed RX: Ammonium Lactate 12% 1 oin TOP BID 08/20/18 08/20/18 [Lac-Hydrin 12% Cream (140 g)] RX: Atorvastatin [Lipitor] 10 mg PO DAILY 08/20/18 08/20/18 RX: Colesevelam HCl [Welchol] 625 mg PO TID 08/20/18 08/20/18 RX: Docusate [Colace] 100 mg PO TID 08/20/18 08/20/18 RX: Ergocalciferol (Vitamin D2) 1 tab PO DAILY 08/20/18 08/20/18 [Vitamin D2] RX: Fenofibrate Nanocrystallized 145 mg PO DAILY 08/20/18 08/20/18 [Tricor] RX: Gabapentin [Neurontin] 300 mg PO TID 08/20/18 08/20/18 RX: Hydroxyzine HCl 25 mg PO TID 08/20/18 08/20/18 RX: Insulin Aspart Prot/Insuln Asp See Protocol SC BID 08/20/18 08/20/18 [Novolog Mix 70-30 Vial] RX: Insulin Aspart, Recombinant See Protocol SC BID 08/20/18 08/20/18 [Novolog] RX: Lidocaine 5% [Lidoderm] 2 patch TD DAILY 08/20/18 08/20/18 RX: Linaclotide [Linzess] 145 mcg PO DAILY 08/20/18 08/20/18 RX: Lipase/Protease/Amylase [Creon 2 tab PO TID 08/20/18 08/20/18 36,000 Units Capsule] RX: Lisinopril [Zestril] 2.5 mg PO DAILY 08/20/18 08/20/18 RX: Loratadine [Claritin] 10 mg PO DAILY 08/20/18 08/20/18 RX: Tydfa-8-Orsq Ethyl Esters 1 GM 2 tab PO BID 08/20/18 08/20/18 [Lovaza] RX: Zolpidem [Ambien] 5 mg PO HS 08/20/18 08/20/18 RX: tiZANidine [Zanaflex] 2 mg PO DAILY 08/20/18 08/20/18 RX: traMADol [Ultram] 50 mg PO QID 08/20/18 08/20/18 Review of Systems - Physician Review All systems were reviewed & negative as marked: Yes - Review of Systems Constitutional: absent: Fevers, Other (Chills) Respiratory: absent: SOB Cardiovascular: absent: Chest Pain Gastrointestinal: Abdominal Pain, Diarrhea, Nausea, Vomiting Genitourinary Male: absent: Dysuria, Frequency, Hematuria Musculoskeletal: absent: Back Pain, Neck Pain Neurological: absent: Headache, Dizziness Physical Exam Vital Signs Reviewed: Yes Temperature: Afebrile Blood Pressure: Hypertensive Pulse: Bradycardic Respiratory Rate: Normal Appearance: Positive for: Well-Appearing, Non-Toxic, Comfortable Pain Distress: None Mental Status: Positive for: Alert and Oriented X 3 Finger Stick Blood Glucose: 391 - Systems Exam Head: Present: Atraumatic, Normocephalic Pupils: Present: PERRL Extroacular Muscles: Present: EOMI Conjunctiva: Present: Normal Mouth: Present: Moist Mucous Membranes Neck: Present: Normal Range of Motion Respiratory/Chest: Present: Clear to Auscultation, Good Air Exchange. No: Respiratory Distress, Accessory Muscle Use Cardiovascular: Present: Regular Rate and Rhythm, Normal S1, S2. No: Murmurs Abdomen: Present: Tenderness (diffuse abdominal tenderness), Other (well healed surgical incision on epigastric region). No: Distention, Peritoneal Signs Back: Present: Normal Inspection Upper Extremity: Present: Normal Inspection. No: Cyanosis, Edema Lower Extremity: Present: Normal Inspection. No: Edema Neurological: Present: GCS=15, CN II-XII Intact, Speech Normal Skin: Present: Warm, Dry, Normal Color. No: Rashes Psychiatric: Present: Alert, Oriented x 3, Normal Insight, Normal Concentration Medical Decision Making ED Course and Treatment: 09/30/18 12:18 Impression: 43 year old male presents complaining of abdominal pain associated with nausea, vomiting and diarrhea that began last night after eating fish at midnight. Plan: -- Labs -- IV Fluids, Toradol, Zofran Inj -- Urinalysis -- CT Abdomen & Pelvis w/ contrast -- Reassess and disposition Prior Visits: Notes and results from previous visits were reviewed. Progress Notes: Patient given 1L NS bolus. Toradol ivp given for pain. Zofran ivp given for nausea. Labs ordered. On re-eval patient reports continued pain and nausea. Morphine ivp given for pain. Additional dose of zofran ivp given for nausea. Labs reviewed and CT abd/pelvis ordered. CT done and results reviewed. Lipase checked, given pancreatitis on CT. Patient admitted for further management of pancreatitis. Case discussed with Dr. Gutierres, covering for Dr. De La Garza, who admits for PMD Dr. Atwood. 09/30/18 12:10 EKG shows Sinus Bradycardia at 45 BPM with normal intervals, LAD, incomplete RBBB, no ST elevations. Interpreted by. PROCEDURE: CT Abdomen and Pelvis with contrast Dictator : Brad Costa MD Report Date : 09/30/2018 14:16:07 IMPRESSION: Evidence of acute pancreatitis without necrotizing pancreatitis. Multiple pseudocysts identified similar to that seen previously. 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 - Lab Interpretations I have reviewed the lab results: Yes - Scribe Statement The provider has reviewed the documentation as recorded by the Jeny Moreira Provider Scribe Attestation: All medical record entries made by the Scribe were at my direction and personally dictated by me. I have reviewed the chart and agree that the record accurately reflects my personal performance of the history, physical exam, medical decision making, and the department course for this patient. I have also personally directed, reviewed, and agree with the discharge instructions and disposition. Disposition/Present on Arrival - Present on Arrival Any Indicators Present on Arrival: No History of DVT/PE: No History of Uncontrolled Diabetes: No Urinary Catheter: No History of Decub. Ulcer: No History Surgical Site Infection Following: None - Disposition Have Diagnosis and Disposition been Completed?: Yes Diagnosis: Pancreatitis Disposition: HOSPITALIZED Disposition Time: 15:40 Patient Plan: Admission Condition: STABLE
[2018-09-30 13:06] LABS: BASO # 0.04 K/mm3 (0.0-2.0); BASO % 0.3 % (0.0-3.0); EOS % 0.1 % (1.5-5.0); GRAN # 11.5 (1.4-6.5); GRAN % 85.8 % (50.0-68.0); HEMOGLOBIN 14.9 g/dL (14.0-18.0); LYMPH # 1.6 (1.2-3.4); LYMPH % 12.2 % (22.0-35.0); MEAN CELL VOLUME 75.5 fl (80.0-105.0); MEAN CORPUSCULAR HEMOGLOBIN 26.8 pg (25.0-35.0); MEAN CORPUSCULAR HGB CONC 35.5 g/dl (31.0-37.0); MONO # 0.2 (0.1-0.6); MONO % 1.6 % (1.0-6.0); RBC 5.56 10^6/uL (3.5-6.1); RED CELL DISTRIBUTION WIDTH 14.4 % (11.5-14.5); WHITE BLOOD COUNT 13.4 10^3/uL (4.5-11.0)
[2018-09-30 13:07] LABS: ALB/GLOB RATIO 1.1 (1.1-1.8); ALBUMIN 4.7 g/dL (3.0-4.8); ALT/SGPT 31 U/L (7-56); AST/SGOT 33 U/L (17-59); CALCIUM 9.4 mg/dL (8.4-10.5); GFR NON-AFRICAN AMERICAN > 60
[2018-09-30 13:08] LABS: BLOOD UREA NITROGEN 9 mg/dL (7-21)
[2018-09-30] MEDS ORDERED: Morphine 4 mg/ml ISec IVP STA (13:10)
[2018-09-30] MEDS ORDERED: Iohexol 350 MG/100 ML VIAL ONE (13:42)
--- NOTE | 2018-09-30 14:19 | CT ---
Date of service: 09/30/2018 PROCEDURE: CT Abdomen and Pelvis with contrast HISTORY: abdominal pain COMPARISON: 08/21/2018. CT abdomen and pelvis. Summary of findings on the comparison examination: 3 mm nonobstructing stone lower pole left kidney. Hepatosplenomegaly, gastric and perisplenic varices. TECHNIQUE: Intravenous contrast dose: 100 cc Omnipaque 300. Radiation dose: Total exam DLP = 381.69 mGy-cm. This CT exam was performed using one or more of the following dose reduction techniques: Automated exposure control, adjustment of the mA and/or kV according to patient size, and/or use of iterative reconstruction technique. FINDINGS: LOWER THORAX: Unremarkable. LIVER: Hepatic steatosis. No focal masses. Intrahepatic bile duct dilatation likely related to prior cholecystectomy. Common duct is dilated. GALLBLADDER AND BILE DUCTS: Status post cholecystectomy. No abnormality is seen in the gallbladder fossa. PANCREAS: Enlarged head of the pancreas. Peripancreatic inflammatory change, mild. No evidence of necrotizing pancreatitis. Pseudocyst formation noted. Two large pseudocysts interposed between the anterior aspect of the pancreas and the lesser curve measure 3 x 3.6 cm and 2.4 x 2.7 cm. Splenic vein thrombosis noted. This likely accounts for innumerable varices in the left upper quadrant. SPLEEN: Stable splenomegaly. Orthogonal measurements 10.2 x 5.4 x 13.8 cm.. Splenic vein thrombosis noted. This likely accounts for innumerable left upper quadrant venous varicosities. ADRENALS: Unremarkable. No mass. KIDNEYS AND URETERS: Unremarkable. No hydronephrosis. No solid mass. VASCULATURE: Unremarkable. No aortic aneurysm. No atherosclerotic calcification or mural plaque present. BOWEL: Unremarkable. No obstruction. No gross mural thickening. APPENDIX: Normal appendix. PERITONEUM: Unremarkable. No free fluid. No free air. LYMPH NODES: Unremarkable. No enlarged lymph nodes. BLADDER: Unremarkable. REPRODUCTIVE: Unremarkable. BONES: No acute fracture. OTHER FINDINGS: None. IMPRESSION: Evidence of acute pancreatitis without necrotizing pancreatitis. Multiple pseudocysts identified similar to that seen previously. 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
--- NOTE | 2018-09-30 17:36 | CP.PCM.PCO ---
Physician Communication Note - Physician Communication Note Physician Communication Note: On vacation-cannot see patient
--- NOTE | 2018-09-30 20:12 | CP.PCM.CON ---
History of Present Illness - History of Present Illness History of Present Illness: Surgery Consult note for Dr. Ding Reason for consult: Acute Pancreatitis 43M pmxh significant for HepC, chronic pancreatitis s/p pseudocyst resection [place] [facility] [place] severe mid-epigastric abdominal pain w/ associated nausea a nd non-blood non bilious vomiting that started yesterday. Patient states he has pain like this similar in the past during episodes of pancreatitis. ED workup confirmed dx of pancreatitis and subsequently surgery was consulted. Denies: fevers, chills, chest pain, shortness of breath, changes in urinary or bowel habits PMH: HepC (completed treatment course 6mo ago), Chronic pancreatitis, DM, hyperl ipidemia, arthritis, chronic back pain PSH: Appendectomy, cholecystectomy, pancreatic pseduosyst resection (2 years ago at [facility]) ALL: NKDA SocialHx: denies ETOH use, quit cigars 6 months ago, smoked 3 cigars daily for 4 years prior to quit date, denies recreational drug use FH: DE, Bone Ca Child-Yuen: Class A MELD Score: 10 Past Patient History - Infectious Disease Hx of Infectious Diseases: None - Tetanus Immunizations Tetanus Immunization: Unknown - Past Medical History & Family History Past Medical History?: Yes - Past Social History Smoking Status: Former Smoker - CARDIAC Hx Hypertension: Yes - PULMONARY Hx Respiratory Disorders: No Hx Asthma: No Hx Bronchitis: No Hx Chronic Obstructive Pulmonary Disease (COPD): No Hx Emphysema: No Hx Pneumonia: No Hx Respiratory Aspiration: No Hx Respiratory Tract Infection: No Hx Sleep Apnea: No Hx Tuberculosis: No - NEUROLOGICAL Hx Neurological Disorder: No Hx Alzheimer's Disease: No HX Cerebrovascular Accident: No Hx Dementia: No Hx Dizziness: No Hx Meningitis: No Hx Migraine: No Hx Parkinson's Disease: No Hx Seizures: No Hx Transient Ischemic Attacks (TIA): No - HEENT Hx HEENT Problems: No Hx Blind: No Hx Cataracts: No Hx Deafness: No Hx Difficulty Chewing: No Hx Epistaxis: No Hx Glaucoma: No Hx Macular Degeneration: No - RENAL Hx Chronic Kidney Disease: No Hx Dialysis: No Hx Kidney Stones: No Hx Neurogenic Bladder: No Hx Pyelonephritis: No Hx Renal (Kidney) Cancer: No Hx Renal Failure: No - ENDOCRINE/METABOLIC Hx Endocrine Disorders: No Hx Adrenal Cancer: No Hx Diabetes Insipidus: No Hx Diabetes Mellitus Type 1: No Hx Diabetes Mellitus Type 2: Yes Hx Hyperthyroidism: No Hx Hypothyroidism: No Hx Systemic Lupus Erythematosus: No - HEMATOLOGICAL/ONCOLOGICAL Hx Blood Disorders: No Hx AIDS: No Hx Anemia: No Hx Cancer: No Hx Chemotherapy: No Hx Cirrhosis: No Hx Hemophilia: No Hx Hepatitis A: No Hx Hepatitis B: No Hx Hepatitis C: Yes Hx Metastesis: No Hx Shingles: No Hx Sickle Cell Disease: No Hx Unexplained Bleeding: No - INTEGUMENTARY Hx Dermatological Problems: No Hx Basil Cell: No Hx Eczema: No Hx Melanoma: No Hx Psoriasis: No Hx Squamous Cell: No - MUSCULOSKELETAL/RHEUMATOLOGICAL Hx Falls: No - GASTROINTESTINAL Hx Gastrointestinal Disorders: No Hx Colostomy: No Hx Crohn's Disease: No Hx Gall Bladder Disease: Yes Hx Ileostomy: No Hx Liver Failure: No Hx Pancreatitis: No HX Swallowing Problems: No - GENITOURINARY/GYNECOLOGICAL Hx Genitourinary Disorders: No Hx Hematuria: No Hx Incontinence: No Hx Prostate Problems: No Hx Sexually Transmitted Disorders: No Hx Urinary Tract Infection: No - PSYCHIATRIC Hx Psychophysiologic Disorder: No Hx Anxiety: No Hx Bipolar Disorder: No Hx Depression: No Hx Emotional Abuse: No Hx Hallucinations: No Hx Panic Symptoms: No Hx Post Traumatic Stress Disorder: No Hx Psychosis: No Hx Physical Abuse: No Hx Schizophrenia: No Hx Sexual Abuse: No Hx Substance Use: No - SURGICAL HISTORY Hx Amputation: No Hx Appendectomy: Yes Hx Cardiac Catheterization: No Hx Cholecystectomy: Yes Hx Coronary Stent: No Hx Gastric Bypass Surgery: No Hx Hysterectomy: No Hx Joint Replacement: No Hx Kidney Transplant: No Hx Liver Transplant: No Hx Mastectomy: No Hx Musculoskeletal Surgery: No Hx Open Heart Surgery: No Hx Orthopedic Surgery: No Hx Splenectomy: No Hx Valve Replacement: No - ANESTHESIA Hx Anesthesia: Yes Meds Allergies/Adverse Reactions: Allergies Allergy/AdvReac Type Severity Reaction Status Date / Time hair color dye Allergy RASH Uncoded 09/30/18 12:11 - Medications Medications: Current Medications Gabapentin (Neurontin) 300 mg PO TID DO; Protocol Sodium Chloride (Sodium Chloride 0.9%) 1,000 mls @ 100 mls/hr IV .Q10H DO Insulin Human Regular (Humulin R Med) 0 units SC ACHS DO; Protocol Zolpidem Tartrate (Ambien) 5 mg PO HS DO; Protocol Physical Exam - Constitutional Appears: Non-toxic, No Acute Distress - Head Exam Head Exam: ATRAUMATIC - Eye Exam Eye Exam: EOMI. absent: Scleral icterus - ENT Exam ENT Exam: Mucous Membranes Moist - Respiratory Exam Respiratory Exam: NORMAL BREATHING PATTERN. absent: Accessory Muscle Use, Respiratory Distress - Cardiovascular Exam Cardiovascular Exam: REGULAR RHYTHM. absent: Bradycardia, Tachycardia - GI/Abdominal Exam GI & Abdominal Exam: Soft, Tenderness (tenderness to mid-epigastrum). absent: Distended, Firm, Guarding, Hernia, Rigid Additional comments: Scars well healed; (open appendectomy, open jas, celiotomy scars) Results - Vital Signs Recent Vital Signs: Last Vital Signs Temp 97.5 F L 09/30/18 12:04 Pulse 62 09/30/18 18:05 Resp 18 09/30/18 18:05 BP 156/72 H 09/30/18 18:05 Pulse Ox 99 09/30/18 18:05 - Labs Result Diagrams: 09/30/18 12:40 09/30/18 12:40 Labs: Laboratory Results - last 24 hr 09/30/18 09/30/18 09/30/18 12:12 12:40 12:40 WBC 13.4 H D RBC 5.56 Hgb 14.9 D Hct 42.0 MCV 75.5 L MCH 26.8 MCHC 35.5 RDW 14.4 Plt Count 216 MPV 11.0 Gran % 85.8 H Lymph % (Auto) 12.2 L [place] % (Auto) 1.6 Eos % (Auto) 0.1 L Baso % (Auto) 0.3 Gran # 11.50 H Lymph # (Auto) 1.6 [place] # (Auto) 0.2 Eos # (Auto) 0.0 Baso # (Auto) 0.04 Sodium 137 Potassium 4.2 Chloride 104 Carbon Dioxide 19 L Anion Gap 19 BUN 9 Creatinine 0.6 L Est GFR ( Amer) > 60 Est GFR (Non-Af Amer) > 60 POC Glucose (mg/dL) 391 H Random Glucose 373 H* D Calcium 9.4 Phosphorus 4.1 Magnesium 1.7 Total Bilirubin 1.3 AST 33 ALT 31 Alkaline Phosphatase 131 H D Total Protein 8.9 H Albumin 4.7 Globulin 4.2 Albumin/Globulin Ratio 1.1 Lipase 09/30/18 12:40 WBC RBC Hgb Hct MCV MCH MCHC RDW Plt Count MPV Gran % Lymph % (Auto) [place] % (Auto) Eos % (Auto) Baso % (Auto) Gran # Lymph # (Auto) [place] # (Auto) Eos # (Auto) Baso # (Auto) Sodium Potassium Chloride Carbon Dioxide Anion Gap BUN Creatinine Est GFR ( Amer) Est GFR (Non-Af Amer) POC Glucose (mg/dL) Random Glucose Calcium Phosphorus Magnesium Total Bilirubin AST ALT Alkaline Phosphatase Total Protein Albumin Globulin Albumin/Globulin Ratio Lipase 2102 H Assessment & Plan - Assessment and Plan (Free Text) Assessment: 43M w/ acute on chronic pancreatitis Plan: - analgesia and anti-emetic PRN - NPO - Aggressive fluid hydration - will continue to monitor - serial abd exams - further recs per Dr. Timur Hwang PGY2
[2018-09-30] MEDS: Morphine 2 mg/ml ISec IVP PRN (20:53)
--- NOTE | 2018-09-30 20:54 | CP.PCM.HP ---
<Omi Clement - Last Filed: 10/01/18 00:27> History of Present Illness - History of Present Illness History of Present Illness: PGY-1 Medicine H&P for Dr. Baca CC: Abdominal pain HPI: Patient is a 43 year old male with a past medical history of HCV, Arthritis, chronic pancreatitis, pancreatic pseudocysts, splenic vein thrombosis, DM, and hypertriglyceridemia who presents to the emergency room with severe mid- epigastric abdominal pain. Patient states he has pain like this similar in the past during episodes of pancreatitis. He states that the pain started at on 09/29/17 at night after eating fried fish. He describes the pain to be located in the epigastric region, sharp, 10/10 in severity,and radiates to all quadrants of the abdomen. He also complains of nausea and multiple peisodes of non-bloody, non-bilious vomiting that started yesterday. Patient denies fevers, chills, c hest pain, shortness of breath, changes in urinary or bowel habits. In ED vitals were stable, IV fluids, Toradol, and Zofran given. 12 point ROS negative except as indicated in HPI Past Medical History: Chronic Hepatitis C (finished treatment 6 months ago), Liver cirrhosis, Chronic Pancreatitis, DM- uncontrolled (HbA1C 12.20 Aug 2018), HLD, Arthritis, chronic back pain, splenic vein thrombosis, Pancreatic Pseudocyst Past Surgical History: Appendectomy (ruptured appendix), Cholecystectomy, Manzo creatic Pseudocyst resection Family History: Mother-Bone Cancer, Father- from [place] at 53 Social History: denies ETOH use, quit cigars 6 months ago, smoked 3 cigars daily for 4 years prior to quit date, denies illicit drug use Allergy: Hair Dye Home meds: please see [facility] Primary Care Physician: Dr. Low FON[facility]INE Physician: Dr. Valentin [facility]: [facility] Present on Admission - Present on Admission Any Indicators Present on Admission: Yes History of DVT/PE: No History of Uncontrolled Diabetes: Yes Urinary Catheter: No Decubitus Ulcer Present: No Review of Systems - Review of Systems All systems: reviewed and no additional remarkable complaints except - Constitutional Constitutional: As Per HPI Past Patient History - Infectious Disease Hx of Infectious Diseases: None - Tetanus Immunizations Tetanus Immunization: Unknown - Past Medical History & Family History Past Medical History?: Yes - Past Social History Smoking Status: Former Smoker - CARDIAC Hx Hypertension: Yes - PULMONARY Hx Respiratory Disorders: No Hx Asthma: No Hx Bronchitis: No Hx Chronic Obstructive Pulmonary Disease (COPD): No Hx Emphysema: No Hx Pneumonia: No Hx Respiratory Aspiration: No Hx Respiratory Tract Infection: No Hx Sleep Apnea: No Hx Tuberculosis: No - NEUROLOGICAL Hx Neurological Disorder: No Hx Alzheimer's Disease: No HX Cerebrovascular Accident: No Hx Dementia: No Hx Dizziness: No Hx Meningitis: No Hx Migraine: No Hx Parkinson's Disease: No Hx Seizures: No Hx Transient Ischemic Attacks (TIA): No - HEENT Hx HEENT Problems: No Hx Blind: No Hx Cataracts: No Hx Deafness: No Hx Difficulty Chewing: No Hx Epistaxis: No Hx Glaucoma: No Hx Macular Degeneration: No - RENAL Hx Chronic Kidney Disease: No Hx Dialysis: No Hx Kidney Stones: No Hx Neurogenic Bladder: No Hx Pyelonephritis: No Hx Renal (Kidney) Cancer: No Hx Renal Failure: No - ENDOCRINE/METABOLIC Hx Endocrine Disorders: No Hx Adrenal Cancer: No Hx Diabetes Insipidus: No Hx Diabetes Mellitus Type 1: No Hx Diabetes Mellitus Type 2: Yes Hx Hyperthyroidism: No Hx Hypothyroidism: No Hx Systemic Lupus Erythematosus: No - HEMATOLOGICAL/ONCOLOGICAL Hx Blood Disorders: No Hx AIDS: No Hx Anemia: No Hx Cancer: No Hx Chemotherapy: No Hx Cirrhosis: No Hx Hemophilia: No Hx Hepatitis A: No Hx Hepatitis B: No Hx Hepatitis C: Yes Hx Metastesis: No Hx Shingles: No Hx Sickle Cell Disease: No Hx Unexplained Bleeding: No - INTEGUMENTARY Hx Dermatological Problems: No Hx Basil Cell: No Hx Eczema: No Hx Melanoma: No Hx Psoriasis: No Hx Squamous Cell: No - MUSCULOSKELETAL/RHEUMATOLOGICAL Hx Falls: No - GASTROINTESTINAL Hx Gastrointestinal Disorders: No Hx Colostomy: No Hx Crohn's Disease: No Hx Gall Bladder Disease: Yes Hx Ileostomy: No Hx Liver Failure: No Hx Pancreatitis: No HX Swallowing Problems: No - GENITOURINARY/GYNECOLOGICAL Hx Genitourinary Disorders: No Hx Hematuria: No Hx Incontinence: No Hx Prostate Problems: No Hx Sexually Transmitted Disorders: No Hx Urinary Tract Infection: No - PSYCHIATRIC Hx Psychophysiologic Disorder: No Hx Anxiety: No Hx Bipolar Disorder: No Hx Depression: No Hx Emotional Abuse: No Hx Hallucinations: No Hx Panic Symptoms: No Hx Post Traumatic Stress Disorder: No Hx Psychosis: No Hx Physical Abuse: No Hx Schizophrenia: No Hx Sexual Abuse: No Hx Substance Use: No - SURGICAL HISTORY Hx Amputation: No Hx Appendectomy: Yes Hx Cardiac Catheterization: No Hx Cholecystectomy: Yes Hx Coronary Stent: No Hx Gastric Bypass Surgery: No Hx Hysterectomy: No Hx Joint Replacement: No Hx Kidney Transplant: No Hx Liver Transplant: No Hx Mastectomy: No Hx Musculoskeletal Surgery: No Hx Open Heart Surgery: No Hx Orthopedic Surgery: No Hx Splenectomy: No Hx Valve Replacement: No - ANESTHESIA Hx Anesthesia: Yes Meds Allergies/Adverse Reactions: Allergies Allergy/AdvReac Type Severity Reaction Status Date / Time hair color dye Allergy RASH Uncoded 09/30/18 12:11 Physical Exam - Constitutional Appears: Non-toxic, No Acute Distress - Head Exam Head Exam: ATRAUMATIC, NORMOCEPHALIC - Eye Exam Eye Exam: EOMI - ENT Exam ENT Exam: Mucous Membranes Dry - Neck Exam Neck exam: Positive for: Normal Inspection - Respiratory Exam Respiratory Exam: Clear to Auscultation Bilateral. absent: Rales, Rhonchi, Wheezes, Respiratory Distress - Cardiovascular Exam Cardiovascular Exam: REGULAR RHYTHM, RRR, +S1, +S2. absent: Gallop, Rubs, Systolic Murmur - GI/Abdominal Exam GI & Abdominal Exam: Normal Bowel Sounds, Soft, Tenderness (Tender to palpation in all quadrants of the abdomen, pain is worse in epigastric region). absent: Distended, Rigid Additional comments: Surgical scars noted in RUQ, RLQ, and mid abdomen - Extremities Exam Extremities exam: Positive for: normal inspection - Back Exam Back exam: absent: paraspinal tenderness Additional comments: Lower piggyback clerk to palpation - Neurological Exam Neurological exam: Alert, CN II-XII Intact, Oriented x3 - Psychiatric Exam Psychiatric exam: Normal Affect, Normal Mood - Skin Skin Exam: Dry, Intact, Normal Color, Warm Results - Vital Signs Recent Vital Signs: Last Vital Signs Temp 97.5 F L 09/30/18 12:04 Pulse 62 09/30/18 18:05 Resp 18 09/30/18 18:05 BP 156/72 H 09/30/18 18:05 Pulse Ox 99 09/30/18 18:05 - Labs Result Diagrams: 09/30/18 12:40 09/30/18 12:40 Labs: Laboratory Results - last 24 hr 09/30/18 09/30/18 09/30/18 12:12 12:40 12:40 WBC 13.4 H D RBC 5.56 Hgb 14.9 D Hct 42.0 MCV 75.5 L MCH 26.8 MCHC 35.5 RDW 14.4 Plt Count 216 MPV 11.0 Gran % 85.8 H Lymph % (Auto) 12.2 L [place] % (Auto) 1.6 Eos % (Auto) 0.1 L Baso % (Auto) 0.3 Gran # 11.50 H Lymph # (Auto) 1.6 [place] # (Auto) 0.2 Eos # (Auto) 0.0 Baso # (Auto) 0.04 Sodium 137 Potassium 4.2 Chloride 104 Carbon Dioxide 19 L Anion Gap 19 BUN 9 Creatinine 0.6 L Est GFR ( Amer) > 60 Est GFR (Non-Af Amer) > 60 POC Glucose (mg/dL) 391 H Random Glucose 373 H* D Calcium 9.4 Phosphorus 4.1 Magnesium 1.7 Total Bilirubin 1.3 AST 33 ALT 31 Alkaline Phosphatase 131 H D Total Protein 8.9 H Albumin 4.7 Globulin 4.2 Albumin/Globulin Ratio 1.1 Lipase 09/30/18 12:40 WBC RBC Hgb Hct MCV MCH MCHC RDW Plt Count MPV Gran % Lymph % (Auto) [place] % (Auto) Eos % (Auto) Baso % (Auto) Gran # Lymph # (Auto) [place] # (Auto) Eos # (Auto) Baso # (Auto) Sodium Potassium Chloride Carbon Dioxide Anion Gap BUN Creatinine Est GFR ( Amer) Est GFR (Non-Af Amer) POC Glucose (mg/dL) Random Glucose Calcium Phosphorus Magnesium Total Bilirubin AST ALT Alkaline Phosphatase Total Protein Albumin Globulin Albumin/Globulin Ratio Lipase 2102 H Assessment & Plan - Assessment and Plan (Free Text) Assessment: Patient is a 43 year old male with a past medical history chronic pancreatitis, pancreatic cysts, DM, and hypertriglyceridemia who presents to the emergency room with severe mid-epigastric abdominal pain and new-onset diarrhea. Abdomen/pelvic CT shows acute pancreatitis. Plan: Acute on chronic pancreatitis, questionable hypertriglyceridemia vs viral infection, less likely due to gallstones or alcohol or drug-induced - CT Abdomen/pelvis (09/30/2018): Evidence of acute pancreatitis without necrotizing pancreatitis. Multiple pseudocysts identified similar to that seen previously. 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 - CT Abdomen/pelvis (08/21/2018) - Unchanged mid pancreatic body pseudocyst with its anastomosis with the stomach.Unchanged chronic thrombosis of the splenic vein with prominent collaterals surrounding the stomach and the splenic hilum. Fluid-filled distended stomach suggestive of gastroparesis. 4 mm left renal nonobstructing stone. - Lipase: 2101 - Amylase: pending - Keep patient NPO - IVF NS @ 100cc/hr - Morphine 2mg IV Q4 PRN pain - Zofran nausea - GI consulted, Dr. Sullivan - Surgery consulted, Dr. Hobson New-onset diarrhea - CMV and [place] infection may cause acute pancreatitis - CMV PCR: pending - Coxsackie A & B PCR: pending Hx of uncontrolled DM - Hold home meds due to patient's NPO status - Fingersticks ACHS - ISS Lispro Low - HgbA1c: pending Hx of Hypertriglyceridemia - Lipid panel:pending Hx of liver cirrhosis - Child-Yuen: Class A - MELD Score: 10 - AST/ALT: 33/31 Hx of Insomnia - Continue home ambien Prophylaxis - DVT ppx: SCD's - GI ppx: Protonix 40mg IV QD Case discussed with attending physician, Dr. Phuong Clement, PGY-1 <Mikhail Baca - Last Filed: 10/01/18 06:32> Results - Vital Signs Recent Vital Signs: Last Vital Signs Temp 98.2 F 09/30/18 22:38 Pulse 59 L 09/30/18 22:38 Resp 18 09/30/18 22:38 BP 145/86 09/30/18 22:38 Pulse Ox 99 09/30/18 22:38 - Labs Result Diagrams: 09/30/18 12:40 09/30/18 12:40 Labs: Laboratory Results - last 24 hr 09/30/18 09/30/18 09/30/18 12:12 12:40 12:40 WBC 13.4 H D RBC 5.56 Hgb 14.9 D Hct 42.0 MCV 75.5 L MCH 26.8 MCHC 35.5 RDW 14.4 Plt Count 216 MPV 11.0 Gran % 85.8 H Lymph % (Auto) 12.2 L [place] % (Auto) 1.6 Eos % (Auto) 0.1 L Baso % (Auto) 0.3 Gran # 11.50 H Lymph # (Auto) 1.6 [place] # (Auto) 0.2 Eos # (Auto) 0.0 Baso # (Auto) 0.04 Sodium 137 Potassium 4.2 Chloride 104 Carbon Dioxide 19 L Anion Gap 19 BUN 9 Creatinine 0.6 L Est GFR ( Amer) > 60 Est GFR (Non-Af Amer) > 60 POC Glucose (mg/dL) 391 H Random Glucose 373 H* D Calcium 9.4 Phosphorus 4.1 Magnesium 1.7 Total Bilirubin 1.3 AST 33 ALT 31 Alkaline Phosphatase 131 H D Total Protein 8.9 H Albumin 4.7 Globulin 4.2 Albumin/Globulin Ratio 1.1 Lipase Urine Color Urine Appearance Urine pH Ur Specific [place] Urine Protein Urine Glucose (UA) Urine Ketones Urine Blood Urine Nitrate Urine Bilirubin Urine Urobilinogen Ur Leukocyte Esterase 09/30/18 09/30/18 10/01/18 12:40 21:29 01:25 WBC RBC Hgb Hct MCV MCH MCHC RDW Plt Count MPV Gran % Lymph % (Auto) [place] % (Auto) Eos % (Auto) Baso % (Auto) Gran # Lymph # (Auto) [place] # (Auto) Eos # (Auto) Baso # (Auto) Sodium Potassium Chloride Carbon Dioxide Anion Gap BUN Creatinine Est GFR ( Amer) Est GFR (Non-Af Amer) POC Glucose (mg/dL) 268 H 266 H Random Glucose Calcium Phosphorus Magnesium Total Bilirubin AST ALT Alkaline Phosphatase Total Protein Albumin Globulin Albumin/Globulin Ratio Lipase 2102 H Urine Color Urine Appearance Urine pH Ur Specific [place] Urine Protein Urine Glucose (UA) Urine Ketones Urine Blood Urine Nitrate Urine Bilirubin Urine Urobilinogen Ur Leukocyte Esterase 10/01/18 04:35 WBC RBC Hgb Hct MCV MCH MCHC RDW Plt Count MPV Gran % Lymph % (Auto) [place] % (Auto) Eos % (Auto) Baso % (Auto) Gran # Lymph # (Auto) [place] # (Auto) Eos # (Auto) Baso # (Auto) Sodium Potassium Chloride Carbon Dioxide Anion Gap BUN Creatinine Est GFR ( Amer) Est GFR (Non-Af Amer) POC Glucose (mg/dL) Random Glucose Calcium Phosphorus Magnesium Total Bilirubin AST ALT Alkaline Phosphatase Total Protein Albumin Globulin Albumin/Globulin Ratio Lipase Urine Color Yellow Urine Appearance Clear Urine pH 6.0 Ur Specific [place] >= 1.030 Urine Protein Negative Urine Glucose (UA) >=1000 Urine Ketones >=80 Urine Blood Negative Urine Nitrate Negative Urine Bilirubin Negative Urine Urobilinogen 0.2 Ur Leukocyte Esterase Negative Attending/Attestation - Attestation I have personally seen and examined this patient.: Yes I have fully participated in the care of the patient.: Yes I have reviewed all pertinent clinical information: Yes
[2018-09-30] MEDS ORDERED: Vitamins A & D Oint UD Foilpak TOP PRN (21:34)
[2018-09-30] MEDS ORDERED: Insulin Reg-MEDIUM-Coverage SC SCH (22:00)
[2018-10-01] MEDS: Morphine 2 mg/ml ISec IVP PRN ×5 (01:17→20:22)
[2018-10-01] MEDS: Insulin Lispro (humaLOG) LOW Coverage SC SCH ×4 (01:25→16:59)
[2018-10-01] MEDS: Sodium Chloride 0.9% 1,000 ML IV SCH (04:11)
[2018-10-01 04:51] LABS: URINE BILIRUBIN NEGATIVE (NEGATIVE); URINE BLOOD NEGATIVE (NEGATIVE); URINE GLUCOSE (UA) >=1000 mg/dL (NEGATIVE); URINE LEUKOCYTE ESTERASE NEGATIVE Leu/uL (NEGATIVE); URINE PROTEIN NEGATIVE mg/dL (<30 mg/dL); URINE UROBILINOGEN 0.2 E.U./dL (<1 E.U./dL)
[2018-10-01 04:56] LABS: URINE APPEARANCE CLEAR (CLEAR); URINE COLOR YELLOW (YELLOW)
[2018-10-01 07:30] LABS: BASO # 0.03 K/mm3 (0.0-2.0); BASO % 0.5 % (0.0-3.0); EOS # 0.1 (0.0-0.7); EOS % 1.1 % (1.5-5.0); GRAN # 4.41 (1.4-6.5); GRAN % 68.7 % (50.0-68.0); LYMPH # 1.6 (1.2-3.4); LYMPH % 25.5 % (22.0-35.0); MEAN CELL VOLUME 75.1 fl (80.0-105.0); MEAN CORPUSCULAR HEMOGLOBIN 25.4 pg (25.0-35.0); MEAN CORPUSCULAR HGB CONC 33.8 g/dl (31.0-37.0); MEAN PLATELET VOLUME 10.6 fl (7.0-11.0); MONO # 0.3 (0.1-0.6); MONO % 4.2 % (1.0-6.0); RBC 4.81 10^6/uL (3.5-6.1); RED CELL DISTRIBUTION WIDTH 14.6 % (11.5-14.5); WHITE BLOOD COUNT 6.4 10^3/uL (4.5-11.0)
[2018-10-01 07:32] LABS: HEMOGLOBIN 12.2 g/dL (14.0-18.0)
--- NOTE | 2018-10-01 07:48 | CP.PCM.PN ---
Subjective - Date & Time of Evaluation Date of Evaluation: 10/01/18 Time of Evaluation: 07:43 - Subjective Subjective: Surgery: Dr. Ding Pt seen and examined. No acute events overnight. Continues to have abd pain. Unchanged. Pt feels nauseous but no vomiting. Objective - Vital Signs/Intake and Output Vital Signs (last 24 hours): Temp Pulse Resp BP Pulse Ox 98.2 F 59 L 18 145/86 99 09/30/18 22:38 09/30/18 22:38 09/30/18 22:38 09/30/18 22:38 09/30/18 22:38 Intake and Output: 10/01/18 10/01/18 06:59 18:59 Intake Total 0 Balance 0 - Medications Medications: Current Medications Sodium Chloride (Sodium Chloride 0.9%) 1,000 mls @ 100 mls/hr IV .Q10H DO Last Admin: 10/01/18 04:11 Dose: 100 mls/hr Insulin Human Lispro (Humalog Low) 0 units SC Q6 DO; Protocol Last Admin: 10/01/18 06:40 Dose: 3 units Lidocaine (Lidoderm) 1 ea TD DAILY DO Morphine Sulfate (Morphine) 2 mg IVP Q4H PRN PRN Reason: Pain, moderate (4-7) Last Admin: 10/01/18 05:35 Dose: 2 mg Ondansetron HCl (Zofran Inj) 4 mg IVP Q6H PRN PRN Reason: Nausea/Vomiting Last Admin: 10/01/18 04:07 Dose: 4 mg Vitamin A (Vitamin A & D Oint Ud Foilpak) 1 ea TOP Q2 PRN PRN Reason: Dry mouth Zolpidem Tartrate (Ambien) 5 mg PO HS DO; Protocol Last Admin: 09/30/18 21:00 Dose: 5 mg - Labs Labs: 10/01/18 07:00 09/30/18 12:40 - Constitutional Appears: Non-toxic, No Acute Distress - Head Exam Head Exam: ATRAUMATIC, NORMOCEPHALIC - Eye Exam Eye Exam: EOMI - ENT Exam ENT Exam: Mucous Membranes Moist - Neck Exam Neck Exam: Full ROM - Respiratory Exam Respiratory Exam: NORMAL BREATHING PATTERN. absent: Accessory Muscle Use, Respiratory Distress - GI/Abdominal Exam GI & Abdominal Exam: Soft, Tenderness. absent: Distended, Firm, Guarding, Rigid, Rebound - Extremities Exam Extremities Exam: absent: Calf Tenderness, Pedal Edema - Neurological Exam Neurological Exam: Alert, Awake, Oriented x3 Assessment and Plan - Assessment and Plan (Free Text) Assessment: 43M w acute on chronic pancreatitis Plan: -NPO w. ice chips -c/w IVF -zofran PRN -serial abd exams -no plans for surgical intervention at this time -will continue to follow -d/w attending Varinderitis PGY4
[2018-10-01 07:55] LABS: ALB/GLOB RATIO 1.1 (1.1-1.8); ALBUMIN 3.5 g/dL (3.0-4.8); ALT/SGPT 65 U/L (7-56); AMYLASE 79 U/L (35-125); AST/SGOT 64 U/L (17-59); BLOOD UREA NITROGEN 12 mg/dL (7-21); CALCIUM 8.4 mg/dL (8.4-10.5); GFR NON-AFRICAN AMERICAN > 60; HDL CHOLESTEROL 21 mg/dL (29-60); LIPASE 422 U/L (23-300)
[2018-10-01 08:03] LABS: LDL CHOLESTEROL 40 mg/dL (0-129)
[2018-10-01] MEDS: Lidocaine 5% Patch TD SCH (10:04)
[2018-10-01] MEDS ORDERED: CREON 36000 UNIT PO SCH (14:00)
--- NOTE | 2018-10-01 14:26 | CP.PCM.PN ---
<Payam Lim - Last Filed: 10/01/18 16:44> Subjective - Date & Time of Evaluation Date of Evaluation: 10/01/18 Time of Evaluation: 14:15 - Subjective Subjective: Payam Lim, PGY-1 Medicine Progress Note for Dr. Lackey Pt was seen and examined this AM at bedside. Pt states that he is still having 9/10 abdominal pain but states that his nausea has improved and that he has not vomited since 6 pm yesterday. He also admits to SOB, but states that it too is improving since last night and states that the SOB was most related to his bouts of emesis. He denies fevers, chills, headache, chest pain, cough, or dysuria. He states that he is hungry at this time and would like to try a soft diet. Objective - Vital Signs/Intake and Output Vital Signs (last 24 hours): Temp Pulse Resp BP Pulse Ox 97.8 F 70 20 134/70 99 10/01/18 06:00 10/01/18 06:00 10/01/18 06:00 10/01/18 06:00 10/01/18 06:00 Intake and Output: 10/01/18 10/01/18 06:59 18:59 Intake Total 0 Balance 0 - Medications Medications: Current Medications Amylase (Pancrease 01371 U-5000 U-01966 U) 5,000 unit PO AC DO Gemfibrozil (Lopid) 600 mg PO BID DO Sodium Chloride (Sodium Chloride 0.9%) 1,000 mls @ 100 mls/hr IV .Q10H DO Last Admin: 10/01/18 04:11 Dose: 100 mls/hr Insulin Human Lispro (Humalog Low) 0 units SC Q6 DO; Protocol Last Admin: 10/01/18 11:29 Dose: Not Given Lidocaine (Lidoderm) 1 ea TD DAILY DO Last Admin: 10/01/18 10:04 Dose: 1 ea Morphine Sulfate (Morphine) 2 mg IVP Q4H PRN PRN Reason: Pain, moderate (4-7) Last Admin: 10/01/18 10:21 Dose: 2 mg Ktgup-3-Upms Ethyl Esters (Lovaza) 1 gm PO BID DO Ondansetron HCl (Zofran Inj) 4 mg IVP Q6H PRN PRN Reason: Nausea/Vomiting Last Admin: 10/01/18 10:20 Dose: 4 mg Vitamin A (Vitamin A & D Oint Ud Foilpak) 1 ea TOP Q2 PRN PRN Reason: Dry mouth Zolpidem Tartrate (Ambien) 5 mg PO HS DO; Protocol Last Admin: 09/30/18 21:00 Dose: 5 mg - Labs Labs: 10/01/18 07:00 10/01/18 07:00 - Constitutional Appears: Non-toxic, No Acute Distress - Head Exam Head Exam: ATRAUMATIC, NORMAL INSPECTION, NORMOCEPHALIC - Eye Exam Eye Exam: EOMI, Normal appearance, PERRL - Respiratory Exam Respiratory Exam: Clear to Ausculation Bilateral, NORMAL BREATHING PATTERN. absent: Accessory Muscle Use, Decreased Breath Sounds, Rhonchi, Wheezes, Respira tory Distress, Stridor - Cardiovascular Exam Cardiovascular Exam: RRR, +S1, +S2. absent: Gallop, Rubs - GI/Abdominal Exam GI & Abdominal Exam: Soft, Tenderness (present in the epigastric region and states that it then radiates down to the bellybutton.), Normal Bowel Sounds. absent: Distended, Firm, Guarding, Rigid - Extremities Exam Extremities Exam: Normal Capillary Refill, Normal Inspection. absent: Pedal Edema, Tenderness - Back Exam Back Exam: NORMAL INSPECTION. absent: CVA tenderness (L), CVA tenderness (R) - Neurological Exam Neurological Exam: Alert, Awake, Oriented x3 - Psychiatric Exam Psychiatric exam: Normal Affect, Normal Mood - Skin Skin Exam: Dry, Intact, Normal Color, Warm Assessment and Plan - Assessment and Plan (Free Text) Assessment: Pt is a 43 year old male with a past medical history chronic pancreatitis, pancreatic cysts, DM, and hypertriglyceridemia who presents to the emergency room with severe mid-epigastric abdominal pain and new-onset diarrhea. Abdomen/pelvic CT shows acute pancreatitis. Plan: 1) Acute on chronic pancreatitis - Likely 2/2 viral infection - CT Abdomen/pelvis (09/30/2018): Evidence of acute pancreatitis without necrotizing pancreatitis. Multiple pseudocysts identified similar to that seen previously. 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 - Lipase: 2102 - Amylase: 79 - Keep patient NPO with ice-chips, will advance diet per GI - IVF NS @ 100cc/hr - Morphine 2mg IV Q4 PRN pain - Zofran PRN for nausea - GI consulted, Dr. Sullivan - Surgery consulted, Dr. Hobson 2) New-onset diarrhea - Likely 2/2 fish pt ate - CMV and [place] infection may cause acute pancreatitis - CMV PCR: pending - Coxsackie A & B PCR: pending 3) Hx of uncontrolled DM - Hold home meds due to patient's NPO status - Fingersticks ACHS - ISS Lispro Low - HgbA1c: 12.1 4) Hx of Hypertriglyceridemia - Lipid panel: TG's: 434 5) Hx of liver cirrhosis - Child-Yuen: Class A - MELD Score: 7 - AST/ALT: 64/65 6) Hx of Insomnia - Continue home ambien Prophylaxis - DVT ppx: SCD's - GI ppx: Protonix 40mg IV QD Case discussed with attending physician, Dr. Darya Lim, PGY-1 <Mohit Lackey - Last Filed: 10/02/18 07:35> Objective - Vital Signs/Intake and Output Vital Signs (last 24 hours): Temp Pulse Resp BP Pulse Ox 98.4 F 68 20 129/80 100 10/01/18 14:00 10/01/18 14:00 10/01/18 14:00 10/01/18 14:00 10/01/18 14:00 Intake and Output: 10/02/18 10/02/18 06:59 18:59 Intake Total 240 Balance 240 - Medications Medications: Current Medications Amylase (Pancrease 65612 U-5000 U-92573 U) 5,000 unit PO AC DO Last Admin: 10/01/18 16:48 Dose: Not Given Gemfibrozil (Lopid) 600 mg PO BID DO Last Admin: 10/01/18 16:59 Dose: Not Given Sodium Chloride (Sodium Chloride 0.9%) 1,000 mls @ 100 mls/hr IV .Q10H DO Last Admin: 10/02/18 01:05 Dose: 100 mls/hr Insulin Human Lispro (Humalog Low) 0 units SC Q6 DO; Protocol Last Admin: 10/02/18 00:02 Dose: 3 units Lidocaine (Lidoderm) 1 ea TD DAILY DO Last Admin: 10/01/18 10:04 Dose: 1 ea Morphine Sulfate (Morphine) 2 mg IVP Q4H PRN PRN Reason: Pain, moderate (4-7) Last Admin: 10/02/18 03:24 Dose: 2 mg Dodyy-7-Vzzu Ethyl Esters (Lovaza) 1 gm PO BID DO Last Admin: 10/01/18 16:59 Dose: Not Given Ondansetron HCl (Zofran Inj) 4 mg IVP Q6H PRN PRN Reason: Nausea/Vomiting Last Admin: 10/01/18 22:48 Dose: 4 mg Vitamin A (Vitamin A & D Oint Ud Foilpak) 1 ea TOP Q2 PRN PRN Reason: Dry mouth Zolpidem Tartrate (Ambien) 5 mg PO HS DO; Protocol Last Admin: 10/01/18 22:41 Dose: 5 mg - Labs Labs: 10/02/18 07:00 10/01/18 07:00 Attending/Attestation - Attestation I have personally seen and examined this patient.: Yes I have fully participated in the care of the patient.: Yes I have reviewed all pertinent clinical information, including history, physical exam and plan: Yes Notes (Text): 10/01/18 43 year old male with past medical history of chronic pancreatitis, pancreatic pseudocysts, diabetes, hypertriglyceridemia and history of noncompliance who presented with complaint of abdominal pain and diarrhea. Found to have acute on chronic pancreatitis with CT findings showing stable pseudocysts and splenic vein thrombosis. Continue with NPO, IVF, and analgesics. GI is following. Patient was counselled on medication compliance as well as outpatient follow up at tertiary center. Mohit Lackey MD Hospitalist.
[2018-10-01] MEDS: Amylase/Lipase/Protease 5,000 Units ECC PO SCH (16:48)
[2018-10-01] MEDS: Omega-3-Acid Ethyl Esters 1 GM Cap PO SCH (16:59)
--- NOTE | 2018-10-01 20:44 | CON ---
DATE: 10/01/2018 GASTROLOGY CONSULTATION REQUESTING PHYSICIAN: Ayaz Gallo MD REASON FOR CONSULTATION: I have been asked to see this 43-year-old [place] male with a history of recurrent pancreatitis, pancreatic pseudocysts, splenic vein thrombosis, diabetes mellitus, hypertriglyceridemia, noncompliance to diet and medications, with multiple [facility] hospitalizations for pancreatitis, who comes to the hospital with a 1-day history of severe mid abdominal pain associated with nausea and vomiting. The patient states that the abdominal pain started after he ate fried finish. The patient has a history of triglyceridemia, which apparently is the cause of his pancreatitis. He has a history of noncompliance with his gemfibrozil and pancreatic enzyme replacement. He denies any hematemesis, rectal bleeding, fevers or chills. CT scan of the abdomen and pelvis performed in the emergency room shows some peripancreatic edema with two pseudocysts in the head and body of the stomach. The pseudocysts are unchanged from a prior CT scan several months ago. He also has splenic vein thrombosis. PAST MEDICAL HISTORY: As above. Again, he has a history of chronic pancreatitis, diabetes mellitus, hyperlipidemia, splenic vein thrombosis, pancreatic pseudocysts, hepatitis C which apparently was treated 6 months ago. PAST SURGICAL HISTORY: Notable for cholecystectomy, appendectomy, and pancreatic pseudocysts drainage. SOCIAL HISTORY: The patient denies alcohol or cigarette use. FAMILY HISTORY: Noncontributory. REVIEW OF SYSTEMS: Fourteen-point review of systems is notable for abdominal pain, nausea, vomiting. MEDICATIONS AT HOME: Include Lopid, Toradol. He is noncompliant with pancreatic enzyme supplements. PHYSICAL EXAMINATION: GENERAL: Middle-aged male, lying in bed, in no acute distress. VITAL SIGNS: Reveal temperature of 97.8, blood pressure 134/70, heart rate of 70. HEENT: Revealed sclerae to be white. Conjunctivae pink. NECK: Supple. CHEST: Lungs reveal distant breath sounds. HEART: Exam reveals a regular rate and rhythm. ABDOMEN: Soft. There is mild to moderate tenderness to deep palpation in the epigastrium. There is some voluntary guarding, but no rebound. EXTREMITIES: Show no edema. LABORATORY DATA: Reveal white blood cell count of 6.4, hemoglobin 12.2. Chemistries reveal AST 64, ALT 65, alkaline phosphatase of 109, lipase of 2102 on admission to the hospital. This morning, it is down to 422. Amylase is normal. IMPRESSION: A 43-year-old male with recurrent pancreatitis, noncompliance with meds, pancreatic pseudocysts, splenic vein thrombosis. RECOMMENDATIONS: 1. Continue IV fluid hydration. 2. Advance diet once the patient's pain improves. 3. Resume pancreatic enzyme replacement and gemfibrozil once his diet is advanced. Keo Sullivan MD
--- NOTE | 2018-10-01 21:06 | CARD ---
APPROVED REPORT Date of service: 09/30/2018 EKG Measurement Heart [id number] <Conclusion> Marked sinus bradycardia Left axis deviation Abnormal ECG
[2018-10-02] MEDS: Insulin Lispro (humaLOG) LOW Coverage SC SCH ×2 (00:02→08:32)
[2018-10-02] MEDS: Sodium Chloride 0.9% 1,000 ML IV SCH ×2 (01:05→12:22)
[2018-10-02] MEDS: Morphine 2 mg/ml ISec IVP PRN ×5 (03:24→22:44)
[2018-10-02 07:25] LABS: BASO # 0.02 K/mm3 (0.0-2.0); BASO % 0.5 % (0.0-3.0); EOS # 0.1 (0.0-0.7); EOS % 2.1 % (1.5-5.0); GRAN # 2.56 (1.4-6.5); GRAN % 60.4 % (50.0-68.0); HEMOGLOBIN 11.3 g/dL (14.0-18.0); LYMPH # 1.3 (1.2-3.4); LYMPH % 30.2 % (22.0-35.0); MEAN CELL VOLUME 74.9 fl (80.0-105.0); MEAN CORPUSCULAR HEMOGLOBIN 25.5 pg (25.0-35.0); MEAN PLATELET VOLUME 10.5 fl (7.0-11.0); MONO # 0.3 (0.1-0.6); MONO % 6.8 % (1.0-6.0); RBC 4.43 10^6/uL (3.5-6.1); RED CELL DISTRIBUTION WIDTH 14.6 % (11.5-14.5); WHITE BLOOD COUNT 4.2 10^3/uL (4.5-11.0)
[2018-10-02 07:58] LABS: ALB/GLOB RATIO 1.1 (1.1-1.8); ALBUMIN 3.4 g/dL (3.0-4.8); ALT/SGPT 42 U/L (7-56); AST/SGOT 26 U/L (17-59); BLOOD UREA NITROGEN 8 mg/dL (7-21); CALCIUM 8.4 mg/dL (8.4-10.5); GFR NON-AFRICAN AMERICAN > 60
[2018-10-02] MEDS: Amylase/Lipase/Protease 5,000 Units ECC PO SCH ×3 (08:33→17:46)
[2018-10-02] MEDS: Lidocaine 5% Patch TD SCH (09:56)
[2018-10-02] MEDS: Omega-3-Acid Ethyl Esters 1 GM Cap PO SCH ×2 (09:56→17:45)
--- NOTE | 2018-10-02 10:38 | CP.PCM.PN ---
Subjective - Date & Time of Evaluation Date of Evaluation: 10/02/18 Time of Evaluation: 10:35 - Subjective Subjective: Surgery Progress note- Dr. Ding Patient seen and examined at bedside. No acute events overnight. Abdominal pain improving. tolerating Clear Liquid diet. denies nausea, vomiting. +OOB. + flatus Objective - Vital Signs/Intake and Output Vital Signs (last 24 hours): Temp Pulse Resp BP Pulse Ox 97.7 F 63 18 133/84 99 10/02/18 06:00 10/02/18 06:00 10/02/18 06:00 10/02/18 06:00 10/02/18 06:00 Intake and Output: 10/02/18 10/02/18 06:59 18:59 Intake Total 240 Balance 240 - Medications Medications: Current Medications Amylase (Pancrease 88362 U-5000 U-06288 U) 5,000 unit PO AC [facility] Last Admin: 10/02/18 08:33 Dose: 5,000 unit Gemfibrozil (Lopid) 600 mg PO BID [facility] Last Admin: 10/02/18 09:56 Dose: 600 mg Sodium Chloride (Sodium Chloride 0.9%) 1,000 mls @ 100 mls/hr IV .Q10H DO Last Admin: 10/02/18 01:05 Dose: 100 mls/hr Insulin Human Lispro (Humalog High) 0 units SC ACHS DO; Protocol Lidocaine (Lidoderm) 1 ea TD DAILY DO Last Admin: 10/02/18 09:56 Dose: 1 ea Morphine Sulfate (Morphine) 2 mg IVP Q4H PRN PRN Reason: Pain, moderate (4-7) Last Admin: 10/02/18 09:57 Dose: 2 mg Rmanl-4-Zwsg Ethyl Esters (Lovaza) 1 gm PO BID DO Last Admin: 10/02/18 09:56 Dose: 1 gm Ondansetron HCl (Zofran Inj) 4 mg IVP Q6H PRN PRN Reason: Nausea/Vomiting Last Admin: 10/02/18 10:07 Dose: 4 mg Vitamin A (Vitamin A & D Oint Ud Foilpak) 1 ea TOP Q2 PRN PRN Reason: Dry mouth Zolpidem Tartrate (Ambien) 5 mg PO HS DO; Protocol Last Admin: 10/01/18 22:41 Dose: 5 mg - Labs Labs: 10/02/18 07:00 10/02/18 07:00 - Constitutional Appears: Non-toxic, No Acute Distress - Head Exam Head Exam: ATRAUMATIC - Eye Exam Eye Exam: EOMI. absent: Scleral icterus - ENT Exam ENT Exam: Mucous Membranes Moist - Respiratory Exam Respiratory Exam: NORMAL BREATHING PATTERN. absent: Accessory Muscle Use, Respiratory Distress - Cardiovascular Exam Cardiovascular Exam: REGULAR RHYTHM, +S1, +S2. absent: Bradycardia, Tachycardia - GI/Abdominal Exam GI & Abdominal Exam: Soft. absent: Distended, Firm, Guarding, Rigid, Tenderness - Neurological Exam Neurological Exam: Alert, Awake, Oriented x3 - Skin Skin Exam: Intact, Warm Assessment and Plan - Assessment and Plan (Free Text) Assessment: 43M w/ recurrent acute on chronic pancreatitis Plan: - Pain control PRN - Aggressive hydration - diet as tolerated - no acute surgical intervention - discussed w/ Dr. Ding surgical attending PGY2
[2018-10-02] MEDS: Insulin Lispro (HUMAlog) HIGH Coverage SC SCH ×4 (12:17→23:27)
--- NOTE | 2018-10-02 12:32 | CP.PCM.PN ---
<Payam Lim - Last Filed: 10/02/18 21:00> Subjective - Date & Time of Evaluation Date of Evaluation: 10/02/18 Time of Evaluation: 12:28 - Subjective Subjective: Payam Lim, PGY-1 Medicine Progress Note for Dr. Lackey Pt was seen and examined this AM at bedside. Pt states that he is continuing to have 9/10 abdominal pain but states that his nausea has improved and that he has not vomited since ED admission. He states that his SOB from earlier has now improved and he denies fevers, chills, headache, chest pain, cough, or dysuria. He states that he is having no associated n/v with the liquid diet but states that his abdominal pain does increase when he eats, though he is still hungry. He will be monitored to see if he can better tolerate CLD throughout the day. Objective - Vital Signs/Intake and Output Vital Signs (last 24 hours): Temp Pulse Resp BP Pulse Ox 97.7 F 63 18 133/84 99 10/02/18 06:00 10/02/18 06:00 10/02/18 06:00 10/02/18 06:00 10/02/18 06:00 Intake and Output: 10/02/18 10/02/18 06:59 18:59 Intake Total 240 Balance 240 - Medications Medications: Current Medications Amylase (Pancrease 25080 U-5000 U-87950 U) 5,000 unit PO AC [facility] Last Admin: 10/02/18 12:22 Dose: 5,000 unit Gemfibrozil (Lopid) 600 mg PO BID [facility] Last Admin: 10/02/18 09:56 Dose: 600 mg Sodium Chloride (Sodium Chloride 0.9%) 1,000 mls @ 100 mls/hr IV .Q10H DO Last Admin: 10/02/18 12:22 Dose: 100 mls/hr Insulin Human Lispro (Humalog High) 0 units SC ACHS DO; Protocol Last Admin: 10/02/18 12:22 Dose: 7 units Insulin Human Lispro (Humalog) 5 units SC AC DO Lidocaine (Lidoderm) 1 ea TD DAILY DO Last Admin: 10/02/18 09:56 Dose: 1 ea Morphine Sulfate (Morphine) 2 mg IVP Q4H PRN PRN Reason: Pain, moderate (4-7) Last Admin: 10/02/18 09:57 Dose: 2 mg Dxaid-4-Nvwx Ethyl Esters (Lovaza) 1 gm PO BID DO Last Admin: 10/02/18 09:56 Dose: 1 gm Ondansetron HCl (Zofran Inj) 4 mg IVP Q6H PRN PRN Reason: Nausea/Vomiting Last Admin: 10/02/18 10:07 Dose: 4 mg Vitamin A (Vitamin A & D Oint Ud Foilpak) 1 ea TOP Q2 PRN PRN Reason: Dry mouth Zolpidem Tartrate (Ambien) 5 mg PO HS DO; Protocol Last Admin: 10/01/18 22:41 Dose: 5 mg - Labs Labs: 10/02/18 07:00 10/02/18 07:00 - Constitutional Appears: Non-toxic, No Acute Distress - Head Exam Head Exam: ATRAUMATIC, NORMAL INSPECTION, NORMOCEPHALIC - Eye Exam Eye Exam: EOMI, Normal appearance, PERRL - Respiratory Exam Respiratory Exam: Clear to Ausculation Bilateral, NORMAL BREATHING PATTERN. absent: Accessory Muscle Use, Decreased Breath Sounds, Rales, Rhonchi, Wheezes, Respiratory Distress, Stridor - Cardiovascular Exam Cardiovascular Exam: RRR, +S1, +S2. absent: Gallop, Rubs - GI/Abdominal Exam GI & Abdominal Exam: Soft, Tenderness (present upon palpation of the epigastric region.), Normal Bowel Sounds. absent: Distended, Firm, Guarding, Rigid - Extremities Exam Extremities Exam: Normal Inspection. absent: Calf Tenderness, Pedal Edema - Back Exam Back Exam: NORMAL INSPECTION. absent: CVA tenderness (L), CVA tenderness (R) - Neurological Exam Neurological Exam: Alert, Awake, Oriented x3 - Psychiatric Exam Psychiatric exam: Normal Affect, Normal Mood - Skin Skin Exam: Dry, Normal Color, Warm Assessment and Plan - Assessment and Plan (Free Text) Assessment: Pt is a 43 year old male with a past medical history chronic pancreatitis, pancreatic cysts, DM, and hypertriglyceridemia who presents to the emergency room with severe mid-epigastric abdominal pain and new-onset diarrhea. Abdomen/pelvic CT shows acute pancreatitis. Pt states that he is having abdominal pain with CLD but no nausea or vomiting, will continue to monitor pts progress. Plan: 1) Acute on chronic pancreatitis - Likely 2/2 viral infection - CT Abdomen/pelvis (09/30/2018): Evidence of acute pancreatitis without necrotizing pancreatitis. Multiple pseudocysts identified similar to that seen previously. 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 - Lipase: 2102 - Amylase: 79 - Pt is on Carb consistent CLD - pt is having some increased abd pain, but will continue to monitor if pt can tolerate it - Advance diet as tolerated - IVF NS @ 100cc/hr - Morphine 2mg IV Q4 PRN pain - Zofran 4mg Q6 PRN for nausea - GI consulted, Dr. Sullivan, recs appreciated - Surgery consulted, Dr. Hobson, rec appreciated 2) New-onset diarrhea - Improved - Likely 2/2 fish pt ate - CMV and [place] infection may cause acute pancreatitis - CMV PCR: pending - Coxsackie A & B PCR: pending 3) Hx of uncontrolled DM - Fingersticks ACHS - Lispro 5 AC - will continue to monitor BS - ISS Lispro Low - HgbA1c: 12.1 4) Hx of Hypertriglyceridemia - Lipid panel: TG's: 434 5) Hx of liver cirrhosis - Child-Yuen: Class A - MELD Score: 7 - AST/ALT: 26/42 6) Hx of Insomnia - Continue home ambien Prophylaxis - DVT ppx: SCD's - GI ppx: Protonix 40mg IV QD Case discussed with attending physician, Dr. Darya Lim, PGY-1 <Mohit Lackey - Last Filed: 10/03/18 08:09> Objective - Vital Signs/Intake and Output Vital Signs (last 24 hours): Temp Pulse Resp BP Pulse Ox 98.4 F 68 18 118/72 98 10/02/18 22:07 10/02/18 22:07 10/02/18 22:07 10/02/18 22:07 10/02/18 22:07 Intake and Output: 10/03/18 10/03/18 06:59 18:59 Intake Total 480 Balance 480 - Medications Medications: Current Medications Amylase (Pancrease 61004 U-5000 U-57263 U) 5,000 unit PO AC [facility] Last Admin: 10/02/18 17:46 Dose: 5,000 unit Gemfibrozil (Lopid) 600 mg PO BID [facility] Last Admin: 10/02/18 17:45 Dose: 600 mg Sodium Chloride (Sodium Chloride 0.9%) 1,000 mls @ 100 mls/hr IV .Q10H DO Last Admin: 10/02/18 12:22 Dose: 100 mls/hr Insulin Human Lispro (Humalog High) 0 units SC ACHS DO; Protocol Last Admin: 10/02/18 23:27 Dose: Not Given Insulin Human Lispro (Humalog) 5 units SC AC DO Last Admin: 10/03/18 07:49 Dose: 5 units Lidocaine (Lidoderm) 1 ea TD DAILY DO Last Admin: 10/02/18 09:56 Dose: 1 ea Morphine Sulfate (Morphine) 2 mg IVP Q4H PRN PRN Reason: Pain, moderate (4-7) Last Admin: 10/03/18 06:41 Dose: 2 mg Pnbvp-8-Oiou Ethyl Esters (Lovaza) 1 gm PO BID DO Last Admin: 10/02/18 17:45 Dose: 1 gm Ondansetron HCl (Zofran Inj) 4 mg IVP Q6H PRN PRN Reason: Nausea/Vomiting Last Admin: 10/03/18 06:45 Dose: 4 mg Vitamin A (Vitamin A & D Oint Ud Foilpak) 1 ea TOP Q2 PRN PRN Reason: Dry mouth Zolpidem Tartrate (Ambien) 5 mg PO HS DO; Protocol Last Admin: 10/02/18 23:31 Dose: 5 mg - Labs Labs: 10/03/18 07:00 10/03/18 07:00 Attending/Attestation - Attestation I have personally seen and examined this patient.: Yes I have fully participated in the care of the patient.: Yes I have reviewed all pertinent clinical information, including history, physical exam and plan: Yes Notes (Text): 10/02/18 43 year old male with past medical history of chronic pancreatitis, pancreatic pseudocysts, diabetes, hypertriglyceridemia and history of noncompliance who presented with complaint of abdominal pain and diarrhea. Found to have acute on chronic pancreatitis with CT findings showing stable pseudocysts and splenic vein thrombosis. Continue with slow diet advancement as tolerated. He is currently on liquid diet. GI and surgery are following. Patient was counselled on medication compliance as well as outpatient follow up at tertiary center. Mohit Lackey MD Hospitalist.
--- NOTE | 2018-10-02 16:38 | PN ---
DATE: 10/02/2018 SUBJECTIVE: The patient is lying in bed. He is tolerating clear liquid diet, abdominal pain is less. PHYSICAL EXAMINATION: VITAL SIGNS: Reveal temperature of 97.7, blood pressure 133/84, heart rate of 63. HEENT: Reveal sclerae to be white. Conjunctivae pink. NECK: Supple. CHEST: Reveal lungs to be clear. HEART: Exam reveals a regular rate and rhythm. ABDOMEN: Soft. There is mild diffuse tenderness to deep palpation. EXTREMITIES: Show no edema. LABORATORY DATA: Reveal white blood cell count 4.2, hemoglobin 11.3. Chemistries reveal blood sugar of 288. AST, ALT, alk phos were all normal. IMPRESSION: This is a 43-year-old male with recurrent pancreatitis, history of pancreatic pseudocyst, noncompliance with diet and medications. RECOMMENDATIONS: 1. Continue slow diet advancement, his acute pancreatitis appears to be improving. Keo Sullivan MD
[2018-10-02] MEDS: Insulin Lispro 1 UNITS/0.01 ML SC SCH (17:46)
[2018-10-03] MEDS: Morphine 2 mg/ml ISec IVP PRN ×4 (06:41→23:02)
[2018-10-03 07:32] LABS: HEMOGLOBIN 11.8 g/dL (14.0-18.0); MEAN CELL VOLUME 75.7 fl (80.0-105.0); MEAN CORPUSCULAR HEMOGLOBIN 25.1 pg (25.0-35.0); MEAN CORPUSCULAR HGB CONC 33.1 g/dl (31.0-37.0); MEAN PLATELET VOLUME 10.6 fl (7.0-11.0); RBC 4.7 10^6/uL (3.5-6.1); RED CELL DISTRIBUTION WIDTH 14.7 % (11.5-14.5); WHITE BLOOD COUNT 3.5 10^3/uL (4.5-11.0)
[2018-10-03] MEDS: Insulin Lispro 1 UNITS/0.01 ML SC SCH ×2 (07:49→18:30)
[2018-10-03 07:52] LABS: ALB/GLOB RATIO 1.1 (1.1-1.8); ALBUMIN 3.3 g/dL (3.0-4.8); ALT/SGPT 54 U/L (7-56); AST/SGOT 38 U/L (17-59); BLOOD UREA NITROGEN 4 mg/dL (7-21); CALCIUM 8.7 mg/dL (8.4-10.5); GFR NON-AFRICAN AMERICAN > 60
[2018-10-03] MEDS: Insulin Lispro (HUMAlog) HIGH Coverage SC SCH ×4 (08:00→22:00)
[2018-10-03] MEDS: Lidocaine 5% Patch TD SCH (11:32)
[2018-10-03] MEDS: Omega-3-Acid Ethyl Esters 1 GM Cap PO SCH ×2 (11:33→18:41)
--- NOTE | 2018-10-03 14:04 | PN ---
DATE: 10/03/2018 SUBJECTIVE: The patient is lying in bed. He states he feels better. He states that he still has abdominal pain, but this is less. He is tolerating a clear liquid diet. He denies any nausea or vomiting. PHYSICAL EXAMINATION VITAL SIGNS: Reveal temperature of 98.4, blood pressure 103/63, heart rate of 56. HEENT: Reveals sclerae to be white. Conjunctivae pink. NECK: Supple. CHEST: Lungs are clear. HEART: Reveals a regular rate and rhythm. ABDOMEN: Soft. There is diffuse mid abdominal tenderness to deep palpation. There is some voluntary guarding. EXTREMITIES: Show no edema. LABORATORY DATA: Reveals white blood cell count 3.5, hemoglobin 11.8, platelet count of 116,000, blood sugar 271. AST, ALT, alk phos were all normal. IMPRESSION: A 43-year-old male with recurrent pancreatitis, pancreatic pseudocysts x2, admitted with recurrent pancreatitis. Clinically, he has improved with IV fluids and analgesics. He is requesting opioid pain medications [id number]. RECOMMENDATIONS: 1. Advance diet as tolerated. 2. Resume pancreatic enzyme replacement. 3. Continue gemfibrozil. Keo Sullivan MD
[2018-10-03] MEDS: Amylase/Lipase/Protease 5,000 Units ECC PO SCH ×2 (14:16)
--- NOTE | 2018-10-03 16:04 | CP.PCM.PN ---
<Payam Lim - Last Filed: 10/03/18 16:00> Subjective - Date & Time of Evaluation Date of Evaluation: 10/03/18 Time of Evaluation: 16:00 - Subjective Subjective: Payam Lim, PGY-1 Medicine Progress Note for Dr. Lackey Pt was seen and examined this AM at bedside. Pt states that he is continuing to have 8/10 abdominal pain but states that his nausea has improved and that he has not vomited since ED admission. He states that his SOB from earlier has now improved and he denies fevers, chills, headache, chest pain, cough, or dysuria. He states that he is having no associated n/v with the liquid diet but states that his abdominal pain does increase when he eats, though he is still hungry. He was advanced to soft diet and will continue to monitor if pt can tolerate. Objective - Vital Signs/Intake and Output Vital Signs (last 24 hours): Temp Pulse Resp BP Pulse Ox 97.7 F 57 L 18 121/76 99 10/03/18 14:00 10/03/18 14:00 10/03/18 14:00 10/03/18 14:00 10/03/18 14:00 Intake and Output: 10/03/18 10/03/18 06:59 18:59 Intake Total 480 Balance 480 - Medications Medications: Current Medications Amylase (Pancrease 44936 U-5000 U-43223 U) 5,000 unit PO AC [facility] Last Admin: 10/03/18 14:16 Dose: 5,000 unit Gemfibrozil (Lopid) 600 mg PO BID [facility] Last Admin: 10/03/18 11:33 Dose: 600 mg Insulin Human Lispro (Humalog High) 0 units SC ACHS [facility]; Protocol Last Admin: 10/03/18 14:12 Dose: 10 unit Insulin Human Lispro (Humalog) 7 units SC AC DO Lidocaine (Lidoderm) 1 ea TD DAILY [facility] Last Admin: 10/03/18 11:32 Dose: 1 ea Morphine Sulfate (Morphine) 1 mg IVP Q4H PRN PRN Reason: Pain, severe (8-10) Last Admin: 10/03/18 14:17 Dose: 1 mg Rweud-3-Kmzr Ethyl Esters (Lovaza) 1 gm PO BID [facility] Last Admin: 10/03/18 11:33 Dose: 1 gm Ondansetron HCl (Zofran Inj) 4 mg IVP Q6H PRN PRN Reason: Nausea/Vomiting Last Admin: 10/03/18 06:45 Dose: 4 mg Vitamin A (Vitamin A & D Oint Ud Foilpak) 1 ea TOP Q2 PRN PRN Reason: Dry mouth Zolpidem Tartrate (Ambien) 5 mg PO HS DO; Protocol Last Admin: 10/02/18 23:31 Dose: 5 mg - Labs Labs: 10/03/18 07:00 10/03/18 07:00 - Constitutional Appears: Non-toxic, No Acute Distress - Head Exam Head Exam: ATRAUMATIC, NORMAL INSPECTION, NORMOCEPHALIC - Eye Exam Eye Exam: EOMI, Normal appearance, PERRL - Respiratory Exam Respiratory Exam: Clear to Ausculation Bilateral, NORMAL BREATHING PATTERN. absent: Accessory Muscle Use, Rhonchi, Wheezes, Respiratory Distress, Stridor - Cardiovascular Exam Cardiovascular Exam: RRR, +S1, +S2. absent: Gallop, Rubs - GI/Abdominal Exam GI & Abdominal Exam: Soft, Tenderness (present upon palpation of the epigastric region), Normal Bowel Sounds. absent: Firm, Guarding, Rigid - Back Exam Back Exam: NORMAL INSPECTION. absent: CVA tenderness (L), CVA tenderness (R) - Neurological Exam Neurological Exam: Alert, Awake, Oriented x3 - Psychiatric Exam Psychiatric exam: Normal Affect, Normal Mood - Skin Skin Exam: Dry, Normal Color, Warm Assessment and Plan - Assessment and Plan (Free Text) Assessment: Pt is a 43 year old male with a past medical history chronic pancreatitis, pancreatic cysts, DM, and hypertriglyceridemia who presents to the emergency room with severe mid-epigastric abdominal pain and new-onset diarrhea. Abdomen/pelvic CT shows acute pancreatitis. Pt states that he is having abdominal pain, but wishes to advance to soft diet, per GI test to see if he can tolerate. Will continue to monitors progress. Plan: 1) Acute on chronic pancreatitis - Likely 2/2 viral infection - CT Abdomen/pelvis (09/30/2018): Evidence of acute pancreatitis without necrotizing pancreatitis. Multiple pseudocysts identified similar to that seen previously. 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 - Lipase: 2102 - Amylase: 79 - Pt is on soft, bland, low fat diet - will monitor to see if pt tolerates - Advance diet as tolerated - Morphine 1mg IV Q4 PRN pain - Zofran 4mg Q6 PRN for nausea - GI consulted, Dr. Sullivan, recs appreciated - Surgery consulted, Dr. Hobson, rec appreciated 2) New-onset diarrhea - Improved - Likely 2/2 fish pt ate - CMV and [place] infection may cause acute pancreatitis - CMV PCR: pending - Coxsackie A & B PCR: pending 3) Hx of uncontrolled DM - Fingersticks ACHS - Lispro 7 AC - will continue to monitor BS - ISS Lispro Low - HgbA1c: 12.1 4) Hx of Hypertriglyceridemia - Lipid panel: TG's: 434 5) Hx of liver cirrhosis - Child-Yuen: Class A - MELD Score: 7 - AST/ALT: 38/54 6) Hx of Insomnia - Continue home ambien Prophylaxis - DVT ppx: SCD's - GI ppx: Protonix 40mg IV QD Case discussed with attending physician, Dr. Darya Lim, PGY-1 <Mohit Lackey - Last Filed: 10/03/18 18:02> Objective - Vital Signs/Intake and Output Vital Signs (last 24 hours): Temp Pulse Resp BP Pulse Ox 97.7 F 57 L 18 121/76 99 10/03/18 14:00 10/03/18 14:00 10/03/18 14:00 10/03/18 14:00 10/03/18 14:00 Intake and Output: 10/03/18 10/03/18 06:59 18:59 Intake Total 480 Balance 480 - Medications Medications: Current Medications Amylase (Pancrease 07290 U-5000 U-48648 U) 5,000 unit PO AC DO Last Admin: 10/03/18 14:16 Dose: 5,000 unit Gemfibrozil (Lopid) 600 mg PO BID DO Last Admin: 10/03/18 11:33 Dose: 600 mg Insulin Human Lispro (Humalog High) 0 units SC ACHS DO; Protocol Last Admin: 10/03/18 14:12 Dose: 10 unit Insulin Human Lispro (Humalog) 7 units SC AC DO Lidocaine (Lidoderm) 1 ea TD DAILY DO Last Admin: 10/03/18 11:32 Dose: 1 ea Morphine Sulfate (Morphine) 1 mg IVP Q4H PRN PRN Reason: Pain, severe (8-10) Last Admin: 10/03/18 14:17 Dose: 1 mg Pfnby-6-Jknv Ethyl Esters (Lovaza) 1 gm PO BID DO Last Admin: 10/03/18 11:33 Dose: 1 gm Ondansetron HCl (Zofran Inj) 4 mg IVP Q6H PRN PRN Reason: Nausea/Vomiting Last Admin: 10/03/18 06:45 Dose: 4 mg Vitamin A (Vitamin A & D Oint Ud Foilpak) 1 ea TOP Q2 PRN PRN Reason: Dry mouth Zolpidem Tartrate (Ambien) 5 mg PO HS DO; Protocol Last Admin: 10/02/18 23:31 Dose: 5 mg - Labs Labs: 10/03/18 07:00 10/03/18 07:00 Attending/Attestation - Attestation I have personally seen and examined this patient.: Yes I have fully participated in the care of the patient.: Yes I have reviewed all pertinent clinical information, including history, physical exam and plan: Yes Notes (Text): 10/03/18 18:01 43 year old male with past medical history of chronic pancreatitis, pancreatic pseudocysts, diabetes, hypertriglyceridemia and history of noncompliance who presented with complaint of abdominal pain and diarrhea. Found to have acute on chronic pancreatitis with CT findings showing stable pseudocysts and splenic vein thrombosis. Continue with slow diet advancement as tolerated. GI and surgery are following. He still complains of diarrhea although this is not corroborated with nursing staff. Will advance diet today. D/c planning likely tomorrow if he is tolerating diet. Patient was counselled on medication compliance as well as outpatient follow up at tertiary center. Mohit Lackey MD Hospitalist.
[2018-10-03 22:41] VITALS: TEMP 97.5
[2018-10-04] MEDS: Morphine 2 mg/ml ISec IVP PRN ×4 (04:12→17:11)
[2018-10-04 07:10] LABS: HEMOGLOBIN 12.3 g/dL (14.0-18.0); MEAN CELL VOLUME 75.6 fl (80.0-105.0); MEAN CORPUSCULAR HEMOGLOBIN 25.5 pg (25.0-35.0); MEAN CORPUSCULAR HGB CONC 33.7 g/dl (31.0-37.0); MEAN PLATELET VOLUME 10.8 fl (7.0-11.0); RBC 4.83 10^6/uL (3.5-6.1); RED CELL DISTRIBUTION WIDTH 14.7 % (11.5-14.5); WHITE BLOOD COUNT 3.4 10^3/uL (4.5-11.0)
[2018-10-04 07:28] LABS: ALB/GLOB RATIO 1.1 (1.1-1.8); ALBUMIN 3.7 g/dL (3.0-4.8); ALT/SGPT 47 U/L (7-56); AST/SGOT 19 U/L (17-59); BLOOD UREA NITROGEN 7 mg/dL (7-21); CALCIUM 9.3 mg/dL (8.4-10.5); GFR NON-AFRICAN AMERICAN > 60
[2018-10-04] MEDS: Insulin Lispro (HUMAlog) HIGH Coverage SC SCH ×3 (08:18→17:11)
[2018-10-04] MEDS: Amylase/Lipase/Protease 5,000 Units ECC PO SCH ×3 (08:22→17:13)
[2018-10-04] MEDS: Insulin Lispro 1 UNITS/0.01 ML SC SCH ×3 (08:23→17:12)
--- NOTE | 2018-10-04 10:31 | PN ---
DATE: 10/04/2018 SUBJECTIVE: The patient is lying in bed. He feels better. He has less abdominal pain. He is tolerating food. He denies any nausea, vomiting. OBJECTIVE: VITAL SIGNS: Reveal temperature of 97.5, blood pressure 114/75, heart rate 64. HEENT: Reveal sclerae to be white. Conjunctivae pink. NECK: Supple. CHEST: Reveal lungs to be clear. HEART: Reveals a regular rate and rhythm. ABDOMEN: Soft. He has mild mid abdominal tenderness, especially to deep palpation. There is voluntary guarding. EXTREMITIES: Show no edema. LABORATORY DATA: Reveal white blood cell count 3.4, hemoglobin 12.3. Chemistries reveal blood sugar 331. Albumin of 3.7. IMPRESSION: Recurrent acute pancreatitis with two pancreatic pseudocysts. RECOMMENDATIONS: 1. Continue pancreatic enzymes. 2. Continue gemfibrozil as the patient has hypertriglyceridemia. If the patient continues to improve, he can be discharged home with outpatient followup. Keo Sullivan MD
[2018-10-04] MEDS: Omega-3-Acid Ethyl Esters 1 GM Cap PO SCH ×2 (12:08→18:24)
[2018-10-04] MEDS: Lidocaine 5% Patch TD SCH (12:09)
[2018-10-04 15:02] VITALS: BP 119/78; PULSE 58; RESP 20; O2SAT 99
--- NOTE | 2018-10-04 17:41 | CP.PCM.DIS ---
Provider - Provider Date of Admission: 09/30/18 15:38 Attending physician: Mohit Lackey MD Primary care physician: Shani Atwood DO Consults: 10/01/18 00:13 Physician Consult Routine Comment: Consulting Provider: Keo Sullivan Consulting Physician: Keo Sullivan Reason for Consult: acute on chronic pancreatitis, chronic splenic vein thrombosis 10/01/18 00:14 Physician Consult Routine Comment: Consulting Provider: Anibal Hobson Consulting Physician: Anibal Hobson Reason for Consult: surgical abdomen, pseudocyst, abd pain Hospital Course - Lab Results Lab Results: Most Recent Lab Values WBC 3.4 10^3/uL (4.5-11.0) L 10/04/18 06:15 RBC 4.83 10^6/uL (3.5-6.1) 10/04/18 06:15 Hgb 12.3 g/dL (14.0-18.0) L 10/04/18 06:15 Hct 36.5 % (42.0-52.0) L 10/04/18 06:15 MCV 75.6 fl (80.0-105.0) L 10/04/18 06:15 MCH 25.5 pg (25.0-35.0) 10/04/18 06:15 MCHC 33.7 g/dl (31.0-37.0) 10/04/18 06:15 RDW 14.7 % (11.5-14.5) H 10/04/18 06:15 Plt Count 122 10^3/uL (120.0-450.0) 10/04/18 06:15 MPV 10.8 fl (7.0-11.0) 10/04/18 06:15 Gran % 60.4 % (50.0-68.0) 10/02/18 07:00 Lymph % (Auto) 30.2 % (22.0-35.0) 10/02/18 07:00 Ida % (Auto) 6.8 % (1.0-6.0) H 10/02/18 07:00 Eos % (Auto) 2.1 % (1.5-5.0) 10/02/18 07:00 Baso % (Auto) 0.5 % (0.0-3.0) 10/02/18 07:00 Gran # 2.56 (1.4-6.5) 10/02/18 07:00 Lymph # (Auto) 1.3 (1.2-3.4) 10/02/18 07:00 Ida # (Auto) 0.3 (0.1-0.6) 10/02/18 07:00 Eos # (Auto) 0.1 (0.0-0.7) 10/02/18 07:00 Baso # (Auto) 0.02 K/mm3 (0.0-2.0) 10/02/18 07:00 Sodium 134 mmol/L (132-148) 10/04/18 06:15 Potassium 4.4 mmol/L (3.6-5.0) 10/04/18 06:15 Chloride 102 mmol/L (98-107) 10/04/18 06:15 Carbon Dioxide 26 mmol/L (21-33) 10/04/18 06:15 Anion Gap 11 (10-20) 10/04/18 06:15 BUN 7 mg/dL (7-21) 10/04/18 06:15 Creatinine 0.6 mg/dl (0.8-1.5) L 10/04/18 06:15 Est GFR ( Amer) > 60 10/04/18 06:15 Est GFR (Non-Af Amer) > 60 10/04/18 06:15 POC Glucose (mg/dL) 261 mg/dL (65-110) H 10/04/18 15:55 Random Glucose 325 mg/dL (70-110) H* 10/04/18 06:15 Hemoglobin A1c 12.1 % (4.2-6.5) H 10/01/18 07:00 Calcium 9.3 mg/dL (8.4-10.5) 10/04/18 06:15 Phosphorus 4.1 mg/dL (2.5-4.5) 09/30/18 12:40 Magnesium 1.7 mg/dL (1.7-2.2) 09/30/18 12:40 Total Bilirubin 0.7 mg/dL (0.2-1.3) 10/04/18 06:15 AST 19 U/L (17-59) 10/04/18 06:15 ALT 47 U/L (7-56) 10/04/18 06:15 Alkaline Phosphatase 133 U/L (38-126) H 10/04/18 06:15 Total Protein 7.1 g/dL (5.8-8.3) 10/04/18 06:15 Albumin 3.7 g/dL (3.0-4.8) 10/04/18 06:15 Globulin 3.4 gm/dL 10/04/18 06:15 Albumin/Globulin Ratio 1.1 (1.1-1.8) 10/04/18 06:15 Triglycerides 434 mg/dL (35-160) H 10/01/18 07:00 Cholesterol 145 mg/dL (130-200) 10/01/18 07:00 LDL Cholesterol Direct 40 mg/dL (0-129) 10/01/18 07:00 HDL Cholesterol 21 mg/dL (29-60) L 10/01/18 07:00 Amylase 79 U/L (35-125) 10/01/18 07:00 Lipase 422 U/L (23-300) H 10/01/18 07:00 Urine Color Yellow (YELLOW) 10/01/18 04:35 Urine Appearance Clear (CLEAR) 10/01/18 04:35 Urine pH 6.0 (4.7-8.0) 10/01/18 04:35 Ur Specific Connelly >= 1.030 (1.005-1.035) 10/01/18 04:35 Urine Protein Negative mg/dL (<30 mg/dL) 10/01/18 04:35 Urine Glucose (UA) >=1000 mg/dL (NEGATIVE) 10/01/18 04:35 Urine Ketones >=80 mg/dL (NEGATIVE) 10/01/18 04:35 Urine Blood Negative (NEGATIVE) 10/01/18 04:35 Urine Nitrate Negative (NEGATIVE) 10/01/18 04:35 Urine Bilirubin Negative (NEGATIVE) 10/01/18 04:35 Urine Urobilinogen 0.2 E.U./dL (<1 E.U./dL) 10/01/18 04:35 Ur Leukocyte Esterase Negative Elba/uL (NEGATIVE) 10/01/18 04:35 Discharge Exam - Head Exam Head Exam: ATRAUMATIC, NORMAL INSPECTION, NORMOCEPHALIC Discharge Plan - Discharge Medications Prescriptions: [id number] Ethyl Esters 1 GM [Lovaza] 2 tab PO BID 30 Days #60 sgl - Follow Up Plan Condition: STABLE Disposition: HOME/ ROUTINE Instructions: Heart Healthy Diet, Low Cholesterol, Saturated Fat, and Trans Fat Diet , Chronic Pain (DC), Constipation, Adult (DC), Diabetes Type 1, Adult (DC), Chronic Pancreatitis (DC) Additional Instructions: Please follow up with your primary care doctor within 3-5 days of discharge. Continue home medications as prescribed. Avoid fatty foods. Recommend a LOW FAT SOFT DIET. If your symptoms return, please go to the nearest emergency department. Referrals: Keo Sullivan MD [Staff Provider] - Shani Atwood DO [Primary Care Provider] - Anibal Hobson MD [Staff Provider] -
== END 2018-10-04 18:48 | disposition home or self-care (01) | DRG 557 ==
LOC: ED 12:03 → ERH 15:38 → 5RSO 18:15
PROVIDERS: ADMIT Internal Medicine; ATTEND Internal Medicine
DX: K85.90 Acute pancreatitis without necrosis or infection, unspecified (principal); K86.2 Cyst of pancreas; B18.2 Chronic viral hepatitis C; K74.60 Unspecified cirrhosis of liver; I82.890 Acute embolism and thrombosis of other specified veins; K86.1 Other chronic pancreatitis; K59.00 Constipation, unspecified; E11.9 Type 2 diabetes mellitus without complications; E78.1 Pure hyperglyceridemia; G47.00 Insomnia, unspecified; E78.5 Hyperlipidemia, unspecified; Z91.19 Patient's noncompliance with other medical treatment and regimen; Z91.11 Patient's noncompliance with dietary regimen; Z87.891 Personal history of nicotine dependence

== ENCOUNTER 2018-12-02 15:12 | Inpatient (IN) | payer OTHER ==
[2018-12-02] MEDS ORDERED: Sodium Chloride 0.9% 1,000 ML IV STA (16:06)
[2018-12-02 16:24] LABS: BASO # 0.04 K/mm3 (0.0-2.0); BASO % 0.5 % (0.0-3.0); EOS # 0.1 (0.0-0.7); EOS % 0.6 % (1.5-5.0); HEMOGLOBIN 14.8 g/dL (14.0-18.0); LYMPH # 1.9 (1.2-3.4); LYMPH % 22.5 % (22.0-35.0); MEAN CELL VOLUME 75.4 fl (80.0-105.0); MEAN CORPUSCULAR HEMOGLOBIN 26.5 pg (25.0-35.0); MEAN CORPUSCULAR HGB CONC 35.2 g/dl (31.0-37.0); MEAN PLATELET VOLUME 9.9 fl (7.0-11.0); MONO # 0.3 (0.1-0.6); MONO % 3.6 % (1.0-6.0); RBC 5.58 10^6/uL (3.5-6.1); RED CELL DISTRIBUTION WIDTH 15.2 % (11.5-14.5); WHITE BLOOD COUNT 8.2 10^3/uL (4.5-11.0)
[2018-12-02 16:28] LABS: INR 1.09; PARTIAL THROMBOPLASTIN TIME 33.9 Seconds (26.9-38.3); PROTHROMBIN TIME 12.1 SECONDS (9.4-12.5)
--- NOTE | 2018-12-02 16:29 | ED PDOC ---
Arrival/HPI - General Chief Complaint: Abdominal Pain Time Seen by Provider: 12/02/18 15:32 Historian: Patient - History of Present Illness Narrative History of Present Illness (Text): 12/02/18 16:26 A 43 year old male, whose past medical history includes pancreatitis (had surgery performed for it) and diabetes (takes insulin), presents to the emergency department complaining of abdominal pain starting 4 days ago. He mentions also experiencing vomiting as well, starting today. Patient reports pain is similar to when he had pancreatitis in the past. Patient denies any diarrhea, cough, fever, chills, or any other complaints at this time. Time/Duration: < week (4 days ago abdominal pain started and today vomiting began.) Past Medical History - Provider Review Nursing Documentation Reviewed: Yes - Past History Past History: No Previous - Infectious Disease Hx of Infectious Diseases: None - Tetanus Immunization Tetanus Immunization: Unknown - Cardiac Hx Hypertension: Yes - Pulmonary Hx Respiratory Disorders: No Hx Asthma: No Hx Bronchitis: No Hx Chronic Obstructive Pulmonary Disease (COPD): No Hx Emphysema: No Hx Pneumonia: No Hx Respiratory Aspiration: No Hx Respiratory Tract Infection: No Hx Sleep Apnea: No Hx Tuberculosis: No - Neurological Hx Neurological Disorder: No Hx Alzheimer's Disease: No HX Cerebrovascular Accident: No Hx Dementia: No Hx Dizziness: No Hx Meningitis: No Hx Migraine: No Hx Parkinson's Disease: No Hx Seizures: No Hx Transient Ischemic Attacks (TIA): No - HEENT Hx HEENT Disorder: No Hx Blind: No Hx Cataracts: No Hx Deafness: No Hx Difficulty Chewing: No Hx Epistaxis: No Hx Glaucoma: No Hx Macular Degeneration: No - Renal Hx Renal Disorder: No Hx Dialysis: No Hx Kidney Stones: No Hx Neurogenic Bladder: No Hx Pyelonephritis: No Hx Renal Cancer: No Hx Renal Failure: No - Endocrine/Metabolic Hx Endocrine Disorders: No Hx Adrenal Cancer: No Hx Diabetes Insipidus: No Hx Diabetes Mellitus Type 1: No Hx Diabetes Mellitus Type 2: Yes Hx Hyperthyroidism: No Hx Hypothyroidism: No Hx Systemic Lupus Erythematosus: No - Hematological/Oncological Hx Blood Disorders: No Hx AIDS: No Hx Anemia: No Hx Cancer: No Hx Chemotherapy: No Hx Cirrhosis: No Hx Hemophilia: No Hx Hepatitis A: No Hx Hepatitis B: No Hx Hepatitis C: Yes Hx Metastasis: No Hx Shingles: No Hx Sickle Cell Disease: No Hx Unexplained Bleeding: No - Integumentary Hx Dermatological Disorder: No Hx Basal Cell Carcinoma: No Hx Eczema: No Hx Melanoma: No Hx Psoriasis: No Hx Squamous Cell Carcinoma: No - Musculoskeletal/Rheumatological Hx Falls: No - Gastrointestinal Hx Gastrointestinal Disorders: No Hx Colostomy: No Hx Crohn's Disease: No Hx Gall Bladder Disease: Yes Hx Ileostomy: No Hx Liver Failure: No Hx Pancreatitis: No HX Swallowing Problems: No - Genitourinary/Gynecological Hx Genitourinary Disorders: No Hx Hematuria: No Hx Incontinence: No Hx Prostate Problems: No Hx Sexually Transmitted Diseases: No Hx Urinary Tract Infection: No - Psychiatric Hx Psychophysiologic Disorder: No Hx Anxiety: No Hx Bipolar Disorder: No Hx Depression: No Hx Emotional Abuse: No Hx Hallucinations: No Hx Panic Disorder: No Hx Post Traumatic Stress Disorder: No Hx Psychosis: No Hx Physical Abuse: No Hx Schizophrenia: No Hx Sexual Abuse: No Hx Substance Use: No - Surgical History Hx Amputation: No Hx Appendectomy: Yes Hx Cardiac Catheterization: No Hx Cholecystectomy: Yes Hx Coronary Stent: No Hx Gastric Bypass Surgery: No Hx Hysterectomy: No Hx Joint Replacement: No Hx Kidney Transplant: No Hx Liver Transplant: No Hx Mastectomy: No Hx Musculoskeletal Surgery: No Hx Open Heart Surgery: No Hx Orthopedic Surgery: No Hx Splenectomy: No Hx Valve Replacement: No - Anesthesia Hx Anesthesia: Yes - Suicidal Assessment Feels Threatened In Home Enviroment: No Family/Social History - Physician Review Nursing Documentation Reviewed: Yes Family/Social History: No Known Family HX Smoking Status: Former Smoker Hx Alcohol Use: No Hx Substance Use: No Hx Substance Use Treatment: No Allergies/Home Meds Allergies/Adverse Reactions: Allergies hair color dye Allergy (Uncoded 09/30/18 12:11) RASH Home Medications: Home Meds Medication Instructions Recorded Confirmed Ammonium Lactate 12% [Lac-Hydrin 1 oin TOP BID 08/20/18 09/30/18 12% Cream (140 g)] Docusate [Colace] 100 mg PO TID 08/20/18 12/02/18 Ergocalciferol (Vitamin D2) 1 tab PO DAILY 08/20/18 12/02/18 [Vitamin D2] Fenofibrate Nanocrystallized 145 mg PO DAILY 08/20/18 12/02/18 [Tricor] Gabapentin [Neurontin] 300 mg PO TID 08/20/18 12/02/18 Insulin Aspart Prot/Insuln Asp See Protocol SC BID 08/20/18 12/02/18 [Novolog Mix 70-30 Vial] Insulin Aspart, Recombinant See Protocol SC BID 08/20/18 12/02/18 [Novolog] Lidocaine 5% [Lidoderm] 2 patch TD DAILY 08/20/18 12/02/18 Lipase/Protease/Amylase [Creon Dr 2 tab PO TID 08/20/18 12/02/18 36,000 Units Capsule] Loratadine [Claritin] 10 mg PO DAILY 08/20/18 12/02/18 Zolpidem [Ambien] 5 mg PO HS 08/20/18 12/02/18 tiZANidine [Zanaflex] 2 mg PO DAILY 08/20/18 12/02/18 traMADol [Ultram] 50 mg PO QID 08/20/18 12/02/18 Review of Systems - Physician Review All systems were reviewed & negative as marked: Yes - Review of Systems Constitutional: absent: Fevers, Night Sweats Respiratory: absent: Cough Gastrointestinal: Abdominal Pain, Vomiting. absent: Diarrhea Physical Exam Vital Signs Reviewed: Yes Vital Signs Temp Pulse Resp BP Pulse Ox 12/02/18 16:08 93 H 132/98 H 12/02/18 15:32 97.5 F L 102 H 18 139/89 97 Temperature: Afebrile Blood Pressure: Normal Pulse: Regular Respiratory Rate: Normal Appearance: Positive for: Other (patient currently vomiting at bedside) Pain Distress: None Mental Status: Positive for: Alert and Oriented X 3 - Systems Exam Head: Present: Atraumatic, Normocephalic Mouth: Present: Moist Mucous Membranes Neck: Present: Normal Range of Motion. No: JVD Respiratory/Chest: Present: Clear to Auscultation, Good Air Exchange. No: Respiratory Distress, Accessory Muscle Use Cardiovascular: Present: Regular Rate and Rhythm, Normal S1, S2. No: Murmurs Abdomen: Present: Tenderness. No: Distention, Peritoneal Signs Back: Present: Normal Inspection Upper Extremity: Present: Normal Inspection. No: Cyanosis, Edema Lower Extremity: Present: Normal Inspection. No: Edema Neurological: Present: GCS=15, CN II-XII Intact, Speech Normal Skin: Present: Warm, Dry, Normal Color. No: Rashes Psychiatric: Present: Alert, Oriented x 3, Normal Insight, Normal Concentration Medical Decision Making ED Course and Treatment: 12/02/18 16:27 Impression: 43 year old male with abdominal pain and new onset of vomiting. Physical exam shows abdominal tenderness, soft abdomen, no distention; no other acute findings on examination. Differential Diagnoses: Vomiting and Abdominal Pain rule out Pancreatitis vs. Abscess Plan: -- Labs -- Zofran -- Pepcid -- IV Fluids -- Abd/Pelvis CT Progress Notes: 12/02/18 19:07 Abd/Pelvis CT IMPRESSION: Status post cholecystectomy. Extensive soft tissue density in the region of the head and body of the pancreas compatible with the pancreatitis. Underlying anastomosis with them posterior stomach wall and pseudocyst without a distinct pseudocyst on the current study. Extensive gastric varices and varices at the splenic hilum. Small nonobstructing left renal calculus. Close clinical correlation advised. Dictator: Singh Mata MD 12/02/18 19:47 12/02/18 19:[address] Baca, who states patient can be admitted to any medical floor. - RAD Interpretation Radiology Orders: 12/02/18 16:07 ABD & PELVIS IV CONTRAST ONLY [CT] Stat - Medication Orders Current Medication Orders: Sodium Chloride (Sodium Chloride 0.9%) 1,000 mls @ 1,000 mls/hr IV .Q1H STA Stop: 12/02/18 17:05 Last Admin: 12/02/18 16:11 Dose: 1,000 mls/hr eMAR Start Stop Document 12/02/18 16:11 GMI (Rec: 12/02/18 16:12 [facility] [id number]) Intravenous Solution Start Date 12/02/18 Start Time 16:11 End Date 12/02/18 End time 17:20 Total Infusion Time 69 Discontinued Medications Famotidine (Pepcid) 20 mg IVP STAT STA Stop: 12/02/18 16:07 Last Admin: 12/02/18 16:13 Dose: 20 mg IVP Administration Document 12/02/18 16:13 GMI (Rec: 12/02/18 16:13 [facility] [id number]) Charges for Administration # of IVP Administrations 1 Ondansetron HCl (Zofran Inj) 4 mg IVP STAT STA Stop: 12/02/18 16:07 Last Admin: 12/02/18 16:13 Dose: 4 mg IVP Administration Document 12/02/18 16:13 [facility] (Rec: 12/02/18 16:13 [id number]) Charges for Administration # of IVP Administrations 1 - Scribe Statement The provider has reviewed the documentation as recorded by the Scribe Pablo Meek All medical record entries made by the Scribe were at my direction and personally dictated by me. I have reviewed the chart and agree that the record accurately reflects my personal performance of the history, physical exam, medical decision making, and the department course for this patient. I have also personally directed, reviewed, and agree with the discharge instructions and disposition. Disposition/Present on Arrival - Present on Arrival Any Indicators Present on Arrival: No History of DVT/PE: No History of Uncontrolled Diabetes: Yes Urinary Catheter: No History of Decub. Ulcer: No History Surgical Site Infection Following: None - Disposition Have Diagnosis and Disposition been Completed?: Yes Diagnosis: Pancreatitis, Abdominal pain Disposition: HOSPITALIZED Disposition Time: 19:46 Patient Plan: Admission Condition: FAIR
[2018-12-02 16:55] LABS: ALBUMIN 4.1 g/dL (3.0-4.8); ALT/SGPT 22 U/L (7-56); AST/SGOT 27 U/L (17-59); BLOOD UREA NITROGEN 16 mg/dL (7-21); CALCIUM 9.4 mg/dL (8.4-10.5); GFR NON-AFRICAN AMERICAN > 60; LIPASE 137 U/L (23-300)
[2018-12-02] MEDS ORDERED: Iohexol 350 MG/100 ML VIAL ONE (17:35)
[2018-12-02] MEDS: Dextrose 5%/0.45% NS 1,000 ML IV SCH (20:05)
[2018-12-02] MEDS ORDERED: Dextrose 50% SYRINGE Inj (50 ml) IV PRN (20:23)
[2018-12-02] MEDS: Morphine 2 mg/ml ISec IVP PRN (20:50)
[2018-12-02] MEDS: Sodium Chloride 0.9% 1,000 ML IV SCH (21:11)
[2018-12-02 21:12] VITALS: RESP 18
[2018-12-02 21:19] LABS: HDL CHOLESTEROL 17 mg/dL (29-60)
--- NOTE | 2018-12-02 21:19 | CP.PCM.HP ---
<Quinten Boykin - Last Filed: 12/02/18 21:49> History of Present Illness - History of Present Illness History of Present Illness: History & Physical for Hospitalist Service Quinten Boykin , PGY-3 CC: abd pain/nausea, unable to tolerate PO x4 days This is a 43 yo Thai M with PMH of Chronic Hep C (completed tx course ~1 yr ago), cirrhosis with gastric/splenic varices, chronic pancreatitis with pseudocysts, poorly controlled DMII, splenic vein thrombosis, chronic back pain, and HLD/HTG who presents with complaint of nausea and abdominal pain with minimal PO intake x4 days, and uncontrolled vomiting since today. Patient denies bilious/bloody emesis. Reports started emesis this AM after awaking and drinking one cup of tea. Reports only tolerating fluids for the last 4 days due to abdominal pain and nausea, but no emesis until today. Has been able to tolerate medications until today. Reports compliant with meds, including pancreatic enzymes. Denies recent new foods or abnormal foods, denies recent fatty foods. Denies recent changes in meds. Denies tobacco, alcohol, illicits. Denies fevers, chills, chest pain, shortness of breath, diarrhea, focal or generalized weakness, or paresthesias. States that this pain and nausea/emesis is consistent with his prior pancreatitis episodes. 12-system ROS reviewed and negative, except as above. Past Medical History: As above Past Surgical History: Appendectomy (ruptured appendix), Cholecystectomy, Pancreatic Pseudocyst resection Family History: Mother-Bone Cancer, Father- from [place] at 53 Social History: Prior tobacco (quit cigars 6 months ago, smoked 3 cigars daily for 4 years), denies EtOH/Illicits/IVDA Allergy: Hair Dye Primary Care Physician: Dr. Kelsey GI Physician: Dr. Valentin [facility] Present on Admission - Present on Admission Any Indicators Present on Admission: No History of DVT/PE: No History of Uncontrolled Diabetes: No Urinary Catheter: No Review of Systems - Review of Systems All systems: reviewed and no additional remarkable complaints except (as per HPI) Past Patient History - Infectious Disease Hx of Infectious Diseases: None - Tetanus Immunizations Tetanus Immunization: Unknown - Past Medical History & Family History Past Medical History?: Yes - Past Social History Smoking Status: Former Smoker - CARDIAC Hx Hypertension: Yes - PULMONARY Hx Respiratory Disorders: No Hx Asthma: No Hx Bronchitis: No Hx Chronic Obstructive Pulmonary Disease (COPD): No Hx Emphysema: No Hx Pneumonia: No Hx Respiratory Aspiration: No Hx Respiratory Tract Infection: No Hx Sleep Apnea: No Hx Tuberculosis: No - NEUROLOGICAL Hx Neurological Disorder: No Hx Alzheimer's Disease: No HX Cerebrovascular Accident: No Hx Dementia: No Hx Dizziness: No Hx Meningitis: No Hx Migraine: No Hx Parkinson's Disease: No Hx Seizures: No Hx Transient Ischemic Attacks (TIA): No - HEENT Hx HEENT Problems: No Hx Blind: No Hx Cataracts: No Hx Deafness: No Hx Difficulty Chewing: No Hx Epistaxis: No Hx Glaucoma: No Hx Macular Degeneration: No - RENAL Hx Chronic Kidney Disease: No Hx Dialysis: No Hx Kidney Stones: No Hx Neurogenic Bladder: No Hx Pyelonephritis: No Hx Renal (Kidney) Cancer: No Hx Renal Failure: No - ENDOCRINE/METABOLIC Hx Endocrine Disorders: No Hx Adrenal Cancer: No Hx Diabetes Insipidus: No Hx Diabetes Mellitus Type 1: No Hx Diabetes Mellitus Type 2: Yes Hx Hyperthyroidism: No Hx Hypothyroidism: No Hx Systemic Lupus Erythematosus: No - HEMATOLOGICAL/ONCOLOGICAL Hx Blood Disorders: No Hx AIDS: No Hx Anemia: No Hx Cancer: No Hx Chemotherapy: No Hx Cirrhosis: No Hx Hemophilia: No Hx Hepatitis A: No Hx Hepatitis B: No Hx Hepatitis C: Yes Hx Metastesis: No Hx Shingles: No Hx Sickle Cell Disease: No Hx Unexplained Bleeding: No - INTEGUMENTARY Hx Dermatological Problems: No Hx Basil Cell: No Hx Eczema: No Hx Melanoma: No Hx Psoriasis: No Hx Squamous Cell: No - MUSCULOSKELETAL/RHEUMATOLOGICAL Hx Falls: No - GASTROINTESTINAL Hx Gastrointestinal Disorders: No Hx Colostomy: No Hx Crohn's Disease: No Hx Gall Bladder Disease: Yes Hx Ileostomy: No Hx Liver Failure: No Hx Pancreatitis: No HX Swallowing Problems: No - GENITOURINARY/GYNECOLOGICAL Hx Genitourinary Disorders: No Hx Hematuria: No Hx Incontinence: No Hx Prostate Problems: No Hx Sexually Transmitted Disorders: No Hx Urinary Tract Infection: No - PSYCHIATRIC Hx Psychophysiologic Disorder: No Hx Anxiety: No Hx Bipolar Disorder: No Hx Depression: No Hx Emotional Abuse: No Hx Hallucinations: No Hx Panic Symptoms: No Hx Post Traumatic Stress Disorder: No Hx Psychosis: No Hx Physical Abuse: No Hx Schizophrenia: No Hx Sexual Abuse: No Hx Substance Use: No - SURGICAL HISTORY Hx Amputation: No Hx Appendectomy: Yes Hx Cardiac Catheterization: No Hx Cholecystectomy: Yes Hx Coronary Stent: No Hx Gastric Bypass Surgery: No Hx Hysterectomy: No Hx Joint Replacement: No Hx Kidney Transplant: No Hx Liver Transplant: No Hx Mastectomy: No Hx Musculoskeletal Surgery: No Hx Open Heart Surgery: No Hx Orthopedic Surgery: No Hx Splenectomy: No Hx Valve Replacement: No - ANESTHESIA Hx Anesthesia: Yes Meds Allergies/Adverse Reactions: Allergies Allergy/AdvReac Type Severity Reaction Status Date / Time hair color dye Allergy RASH Uncoded 09/30/18 12:11 Physical Exam - Constitutional Appears: In Acute Distress, Chronically Ill - Head Exam Head Exam: ATRAUMATIC, NORMAL INSPECTION, NORMOCEPHALIC - Eye Exam Eye Exam: EOMI, Normal appearance. absent: Conjunctival injection, Scleral icterus - ENT Exam ENT Exam: Mucous Membranes Dry - Neck Exam Neck exam: Positive for: Normal Inspection. Negative for: Lymphadenopathy, Tenderness, Thyromegaly - Respiratory Exam Respiratory Exam: Clear to Auscultation Bilateral, NORMAL BREATHING PATTERN. absent: Accessory Muscle Use, Chest Wall Tenderness, Decreased Breath Sounds, Rales, Rhonchi, Wheezes - Cardiovascular Exam Cardiovascular Exam: REGULAR RHYTHM, RRR, +S1, +S2. absent: Bradycardia, Tachycardia, Irregular Rhythm, JVD, +S4 - GI/Abdominal Exam GI & Abdominal Exam: Hyperactive Bowel Sounds, Soft, Tenderness (acutely tender to palpation in all grace, no discernable area of prominence, restricting generalized movements as worsens abd pain as per patient). absent: Diminished Bowel Sounds, Hypoactive Bowel Sounds, Normal Bowel Sounds - Extremities Exam Extremities exam: Positive for: normal capillary refill, normal inspection, pedal pulses present. Negative for: calf tenderness, pedal edema, tenderness - Back Exam Back exam: absent: CVA tenderness (L), CVA tenderness (R) - Neurological Exam Additional comments: awake and alert, moving all extemities spontaneously and on command, minimizing movement due to worsening abdominal pain but motor and ROM grossly intact and equal bilaterally - Psychiatric Exam Psychiatric exam: Anxious, Normal Affect - Skin Skin Exam: Dry, Intact, Normal Color, Warm Results - Vital Signs Recent Vital Signs: Last Vital Signs Temp 98 F 12/02/18 19:14 Pulse 85 12/02/18 19:14 Resp 17 12/02/18 19:14 BP 132/59 L 12/02/18 19:14 Pulse Ox 98 12/02/18 19:14 - Labs Result Diagrams: 12/02/18 16:00 12/02/18 16:00 Labs: Laboratory Results - last 24 hr 12/02/18 12/02/18 12/02/18 16:00 16:00 16:00 WBC 8.2 D RBC 5.58 Hgb 14.8 D Hct 42.1 MCV 75.4 L MCH 26.5 MCHC 35.2 RDW 15.2 H Plt Count 155 MPV 9.9 Neut % (Auto) 72.8 H Lymph % (Auto) 22.5 [place] % (Auto) 3.6 Eos % (Auto) 0.6 L Baso % (Auto) 0.5 Lymph # (Auto) 1.9 [place] # (Auto) 0.3 Eos # (Auto) 0.1 Baso # (Auto) 0.04 Absolute Neuts (auto) 5.98 PT 12.1 INR 1.09 APTT 33.9 Sodium 137 Potassium 4.2 Chloride 100 Carbon Dioxide 24 Anion Gap 17 BUN 16 Creatinine 0.6 L Est GFR ( Amer) > 60 Est GFR (Non-Af Amer) > 60 Random Glucose 325 H* Calcium 9.4 Magnesium 1.7 Total Bilirubin 1.2 AST 27 ALT 22 Alkaline Phosphatase 117 Total Protein 8.2 Albumin 4.1 Globulin 4.1 Albumin/Globulin Ratio 1.0 L Lipase 137 Assessment & Plan - Assessment and Plan (Free Text) Assessment: This is a 43 yo Thai M with PMH of Chronic Hep C (completed tx course ~1 yr ago), cirrhosis with gastric/splenic varices, chronic pancreatitis with pseudocysts, poorly controlled DMII, splenic vein thrombosis, chronic back pain, and HLD/HTG who presents with complaint of nausea and abdominal pain with min imal PO intake x4 days, and uncontrolled vomiting since today. He is being admitted for acute on chronic pancreatitis. Plan: 1) 4x severe abdominal pain + 1x day uncontrolled vomiting -likely acute on chronic pancreatitis; ddx includes enteritis, diabetic gastroparesis, diverticulitis, and colitis not DKA, elevated BG but no gap and normal bicarb -less likely gastroparesis, having flatus, but can tx N/V with reglan, which can cover both -lipid panel ordered, r/o hypertriglyceride pancreatitis -NPO, IVF (s/p 1L bolus in ED, now on 150cc/hr continuous), Reglan for N/V control, morphine prn for pain control -CT abd/pelvis obtained, prelim read from [place] [facility] notable for pacreatitis, gastric and splenic varices, no enteritis or diverticulitis appreciated f/u official Rad read in AM given varices and emesis episodes, IV protonix bid ordered 2) DMII -A1c ordered -since NPO, will order sliding scale lispro, no standing insulin 3) HTN -BP controlled for now, holding all oral meds -if becomes hypertensive, can consider prn hydralazine 4) Cirrhosis 2/2 hep C -s/p tx for hep C approx 1 yr ago -no transaminitis on admission labs -avoid hepatotoxic meds were feasible 5) HLD -lipid panel ordered, no statin currently and no lopid as NPO Ppx: SCDs for DVT, protonix for GI Seen, reviewed, and discussed with attending, Dr. Baca <Mikhail Baca - Last Filed: 12/03/18 06:34> Results - Vital Signs Recent Vital Signs: Last Vital Signs Temp 98 F 12/02/18 19:14 Pulse 80 12/02/18 22:45 Resp 18 12/02/18 22:45 BP 120/75 12/02/18 21:12 Pulse Ox 100 12/02/18 21:12 - Labs Result Diagrams: 12/02/18 16:00 12/02/18 16:00 Labs: Laboratory Results - last 24 hr 12/02/18 12/02/18 12/02/18 15:00 16:00 16:00 WBC 8.2 D RBC 5.58 Hgb 14.8 D Hct 42.1 MCV 75.4 L MCH 26.5 MCHC 35.2 RDW 15.2 H Plt Count 155 MPV 9.9 Neut % (Auto) 72.8 H Lymph % (Auto) 22.5 [place] % (Auto) 3.6 Eos % (Auto) 0.6 L Baso % (Auto) 0.5 Lymph # (Auto) 1.9 [place] # (Auto) 0.3 Eos # (Auto) 0.1 Baso # (Auto) 0.04 Absolute Neuts (auto) 5.98 PT 12.1 INR 1.09 APTT 33.9 Sodium Potassium Chloride Carbon Dioxide Anion Gap BUN Creatinine Est GFR ( Amer) Est GFR (Non-Af Amer) POC Glucose (mg/dL) Random Glucose Calcium Magnesium Total Bilirubin AST ALT Alkaline Phosphatase Total Protein Albumin Globulin Albumin/Globulin Ratio Triglycerides 1568 H Cholesterol 287 H LDL Cholesterol Direct HDL Cholesterol 17 L Lipase 12/02/18 12/02/18 12/03/18 16:00 21:43 01:17 WBC RBC Hgb Hct MCV MCH MCHC RDW Plt Count MPV Neut % (Auto) Lymph % (Auto) [place] % (Auto) Eos % (Auto) Baso % (Auto) Lymph # (Auto) [place] # (Auto) Eos # (Auto) Baso # (Auto) Absolute Neuts (auto) PT INR APTT Sodium 137 Potassium 4.2 Chloride 100 Carbon Dioxide 24 Anion Gap 17 BUN 16 Creatinine 0.6 L Est GFR ( Amer) > 60 Est GFR (Non-Af Amer) > 60 POC Glucose (mg/dL) 253 H 198 H Random Glucose 325 H* Calcium 9.4 Magnesium 1.7 Total Bilirubin 1.2 AST 27 ALT 22 Alkaline Phosphatase 117 Total Protein 8.2 Albumin 4.1 Globulin 4.1 Albumin/Globulin Ratio 1.0 L Triglycerides Cholesterol LDL Cholesterol Direct HDL Cholesterol Lipase 137 12/03/18 02:00 WBC RBC Hgb Hct MCV MCH MCHC RDW Plt Count MPV Neut % (Auto) Lymph % (Auto) [place] % (Auto) Eos % (Auto) Baso % (Auto) Lymph # (Auto) [place] # (Auto) Eos # (Auto) Baso # (Auto) Absolute Neuts (auto) PT INR APTT Sodium Potassium Chloride Carbon Dioxide Anion Gap BUN Creatinine Est GFR ( Amer) Est GFR (Non-Af Amer) POC Glucose (mg/dL) Random Glucose Calcium Magnesium Total Bilirubin AST ALT Alkaline Phosphatase Total Protein Albumin Globulin Albumin/Globulin Ratio Triglycerides 958 H Cholesterol 250 H LDL Cholesterol Direct < 30 HDL Cholesterol 17 L Lipase Attending/Attestation - Attestation I have personally seen and examined this patient.: Yes I have fully participated in the care of the patient.: Yes I have reviewed all pertinent clinical information: Yes Notes (Text): 12/03/18 06:33 Seen and examined and discussed with resident. Exam significant for generalized abdominal pain. A&P as above.
[2018-12-02] MEDS: Insulin Lispro (humaLOG) LOW Coverage SC SCH (22:11)
[2018-12-02] MEDS ORDERED: Insulin Lispro 1 UNITS/0.01 ML ONE (22:14)
[2018-12-02] MEDS: Lactated Ringer's 1,000 ML IV SCH (22:55)
[2018-12-03] MEDS: Lactated Ringer's 1,000 ML IV SCH (00:09)
[2018-12-03 00:15] VITALS: BMI 19.0
[2018-12-03] MEDS: Insulin Lispro (humaLOG) LOW Coverage SC SCH ×4 (01:34→18:56)
[2018-12-03 02:21] LABS: HDL CHOLESTEROL 17 mg/dL (29-60)
[2018-12-03 02:34] LABS: LDL CHOLESTEROL < 30 mg/dL (0-129)
[2018-12-03] MEDS: Sodium Chloride 0.9% 1,000 ML IV SCH (06:33)
[2018-12-03] MEDS: Morphine 2 mg/ml ISec IVP PRN ×3 (07:00→18:56)
[2018-12-03 07:31] LABS: BASO # 0.04 K/mm3 (0.0-2.0); BASO % 0.9 % (0.0-3.0); EOS # 0.1 (0.0-0.7); EOS % 2.8 % (1.5-5.0); LYMPH # 1.9 (1.2-3.4); LYMPH % 41.4 % (22.0-35.0); MEAN CELL VOLUME 76.3 fl (80.0-105.0); MEAN CORPUSCULAR HEMOGLOBIN 25.5 pg (25.0-35.0); MEAN CORPUSCULAR HGB CONC 33.4 g/dl (31.0-37.0); MEAN PLATELET VOLUME 9.9 fl (7.0-11.0); MONO # 0.2 (0.1-0.6); MONO % 4.3 % (1.0-6.0); RBC 4.59 10^6/uL (3.5-6.1); RED CELL DISTRIBUTION WIDTH 15.5 % (11.5-14.5); WHITE BLOOD COUNT 4.7 10^3/uL (4.5-11.0)
[2018-12-03 07:45] LABS: HEMOGLOBIN 11.7 g/dL (14.0-18.0)
[2018-12-03 08:05] LABS: ALB/GLOB RATIO 0.9 (1.1-1.8); ALBUMIN 2.9 g/dL (3.0-4.8); ALT/SGPT 12 U/L (7-56); AST/SGOT 19 U/L (17-59); BLOOD UREA NITROGEN 12 mg/dL (7-21); CALCIUM 8.1 mg/dL (8.4-10.5); GFR NON-AFRICAN AMERICAN > 60
--- NOTE | 2018-12-03 11:12 | CT ---
Date of service: 12/02/2018 PROCEDURE: CT Abdomen and Pelvis with contrast HISTORY: paincreatitis COMPARISON: 09/30/2018 CT TECHNIQUE: Contrast dose: 100 cc of Omni 350 Radiation dose: Total exam DLP = 430.15 mGy-cm. This CT exam was performed using one or more of the following dose reduction techniques: Automated exposure control, adjustment of the mA and/or kV according to patient size, and/or use of iterative reconstruction technique. FINDINGS: LOWER THORAX: Unremarkable. LIVER: Unremarkable. No gross lesion or ductal dilatation. GALLBLADDER AND BILE DUCTS: Removed PANCREAS: The previous study showed pancreatic pseudocysts in the body of the pancreas. These are no longer seen. There is mild swelling of the pancreatic head. The body and tail of the pancreas are atrophic. There is edema of the adjacent stomach with severe mural thickening. Multiple large gastric varices are seen. SPLEEN: Unremarkable. ADRENALS: Unremarkable. No mass. KIDNEYS AND URETERS: Unremarkable. No hydronephrosis. No solid mass. VASCULATURE: Unremarkable. No aortic aneurysm. No aortic atherosclerotic calcification or mural plaque present. BOWEL: Unremarkable. No obstruction. No gross mural thickening. APPENDIX: Normal appendix. PERITONEUM: Unremarkable. No free fluid. No free air. LYMPH NODES: Unremarkable. No enlarged lymph nodes. BLADDER: Unremarkable. REPRODUCTIVE: Unremarkable. BONES: No acute fracture. OTHER FINDINGS: The report concurs with the preliminary [facility] report IMPRESSION: The previous study showed pancreatic pseudocysts in the body of the pancreas. These are no longer seen. There is mild swelling of the pancreatic head consistent with pancreatitis. The body and tail of the pancreas are atrophic. There is edema of the adjacent stomach with severe mural thickening. Multiple large gastric varices are seen.
[2018-12-03] MEDS: Dextrose 5%/0.45% NS 1,000 ML IV SCH (14:49)
--- NOTE | 2018-12-03 14:51 | CP.PCM.PN ---
<Joshua Barrios - Last Filed: 12/03/18 14:42> Subjective - Date & Time of Evaluation Date of Evaluation: 12/03/18 Time of Evaluation: 09:15 - Subjective Subjective: Joshua Barrios PGY1 Medicine Progress Note Patient seen and examined at bedside this morning. Continues to admit to diffuse abdominal pain as well as several episodes of vomiting yesterday. GI consult placed. Will recheck lipid panel in AM and continue with pain control. Objective - Vital Signs/Intake and Output Vital Signs (last 24 hours): Temp Pulse Resp BP Pulse Ox 97.8 F 80 18 105/62 99 12/03/18 06:00 12/03/18 06:00 12/03/18 06:00 12/03/18 06:00 12/03/18 06:00 Intake and Output: 12/03/18 12/03/18 06:59 18:59 Intake Total 0 Balance 0 - Medications Medications: Current Medications Dextrose (Dextrose 50% Inj) 0 ml IV STAT PRN; Protocol PRN Reason: Hypoglycemia Protocol Dextrose/Sodium Chloride (Dextrose 5%/0.45% Ns 1000 Ml) 1,000 mls @ 100 mls/hr IV .Q10H DO Last Admin: 12/02/18 20:05 Dose: 100 mls/hr Dextrose (Dextrose 5% In Water 1000 Ml) 1,000 mls @ 0 mls/hr IV .Q0M PRN; Protocol PRN Reason: Hypoglycemia Protocol Sodium Chloride (Sodium Chloride 0.9%) 1,000 mls @ 150 mls/hr IV .Q6H40M DO Last Admin: 12/03/18 06:33 Dose: 150 mls/hr Insulin Human Lispro (Humalog Low) 0 units SC Q6 DO; Protocol Last Admin: 12/03/18 11:47 Dose: Not Given Metoclopramide HCl (Reglan) 10 mg IVP Q6H PRN PRN Reason: Nausea/Vomiting Last Admin: 12/03/18 12:21 Dose: 10 mg Morphine Sulfate (Morphine) 2 mg IVP Q4H PRN PRN Reason: Pain, moderate (4-7) Last Admin: 12/03/18 12:22 Dose: 2 mg Pantoprazole Sodium (Protonix Inj) 40 mg IVP Q12 DO Last Admin: 03/18/19 09:23 Dose: 40 mg - Labs Labs: 12/03/18 07:00 12/03/18 07:00 PT 12.1 SECONDS (9.4-12.5) 12/02/18 16:00 INR 1.09 12/02/18 16:00 APTT 33.9 Seconds (26.9-38.3) 12/02/18 16:00 - Constitutional Appears: Unkempt - Head Exam Head Exam: ATRAUMATIC, NORMAL INSPECTION - Eye Exam Eye Exam: EOMI Pupil Exam: PERRL - ENT Exam ENT Exam: Mucous Membranes Moist - Respiratory Exam Respiratory Exam: Clear to Ausculation Bilateral. absent: Accessory Muscle Use, Wheezes, Respiratory Distress - Cardiovascular Exam Cardiovascular Exam: REGULAR RHYTHM, +S1, +S2 - GI/Abdominal Exam GI & Abdominal Exam: Soft, Tenderness, Normal Bowel Sounds. absent: Guarding, Rigid Additional comments: generalized tenderness appreciated with palpation - Extremities Exam Extremities Exam: Normal Inspection. absent: Calf Tenderness, Tenderness - Back Exam Back Exam: NORMAL INSPECTION - Neurological Exam Neurological Exam: Alert, CN II-XII Intact, Oriented x3 - Skin Skin Exam: Normal Color, Warm Assessment and Plan - Assessment and Plan (Free Text) Assessment: This is a 43 yo Greek M with PMH of Chronic Hep C (completed tx course ~1 yr ago), cirrhosis with gastric/splenic varices, chronic pancreatitis with pseudocysts, poorly controlled DMII, splenic vein thrombosis, chronic back pain, and HLD/HTG who presents with complaint of nausea and abdominal pain with minimal PO intake x4 days, and uncontrolled vomiting since today and admitted for acute on chronic pancreatitis. Plan: Acute on chronic pancreatitis 2/2 elevated TG -NPO, continue fluids -morphine prn -TG downtrending, will recheck in AM -reglan prn -holding oral meds at this time -CTAP 12/02 shows mild swelling of the pancreatic head consistent with pancreatitis. Body and tail of pancreas are atrophic. Edema of the adjacent stomach with severe mural thickening. Multiple large gastric varices are seen -GI on consult, Dr. Cadet -protonix 40mg IVP q12 Hx of HTN -currently holding oral BP meds -BP is normotensive this morning, will monitor Cirrhosis 2/2 hep C -s/p tx for hep C approx 1 yr ago -avoid hepatotoxic meds if possible Hx of DM - uncontrolled -A1c is 13.5 -ISS q6 Hx of HLD -repeat lipid panel in AM -holding oral meds for now PPX -SCD and protonix Patient seen and case discussed with attending, Shania Angeles <Maria Luisa Forde R - Last Filed: 12/03/18 15:44> Objective - Vital Signs/Intake and Output Vital Signs (last 24 hours): Temp Pulse Resp BP Pulse Ox 97.5 F L 54 L 18 102/58 L 99 12/03/18 14:00 12/03/18 14:00 12/03/18 14:00 12/03/18 14:00 12/03/18 14:00 Intake and Output: 12/03/18 12/03/18 06:59 18:59 Intake Total 0 0 Balance 0 0 - Medications Medications: Current Medications Dextrose (Dextrose 50% Inj) 0 ml IV STAT PRN; Protocol PRN Reason: Hypoglycemia Protocol Dextrose/Sodium Chloride (Dextrose 5%/0.45% Ns 1000 Ml) 1,000 mls @ 100 mls/hr IV .Q10H DO Last Admin: 12/03/18 14:49 Dose: 100 mls/hr Dextrose (Dextrose 5% In Water 1000 Ml) 1,000 mls @ 0 mls/hr IV .Q0M PRN; Protocol PRN Reason: Hypoglycemia Protocol Sodium Chloride (Sodium Chloride 0.9%) 1,000 mls @ 150 mls/hr IV .Q6H40M DO Last Admin: 12/03/18 06:33 Dose: 150 mls/hr Insulin Human Lispro (Humalog Low) 0 units SC Q6 DO; Protocol Last Admin: 12/03/18 11:47 Dose: Not Given Metoclopramide HCl (Reglan) 10 mg IVP Q6H PRN PRN Reason: Nausea/Vomiting Last Admin: 12/03/18 12:21 Dose: 10 mg Morphine Sulfate (Morphine) 2 mg IVP Q4H PRN PRN Reason: Pain, moderate (4-7) Last Admin: 12/03/18 12:22 Dose: 2 mg Pantoprazole Sodium (Protonix Inj) 40 mg IVP Q12 DO Last Admin: 12/03/18 09:23 Dose: 40 mg - Labs Labs: 12/03/18 07:00 12/03/18 07:00 PT 12.1 SECONDS (9.4-12.5) 12/02/18 16:00 INR 1.09 12/02/18 16:00 APTT 33.9 Seconds (26.9-38.3) 12/02/18 16:00 Attending/Attestation - Attestation I have personally seen and examined this patient.: Yes I have fully participated in the care of the patient.: Yes I have reviewed all pertinent clinical information, including history, physical exam and plan: Yes Notes (Text): Patient seen and examined by me with resident at 10:25AM on 12/03/18. Case including HPI, physical exam, and assessment and plan discussed with resident. Agree with above with following additions/corrections. Patient is a 43-year-old male with past medical history significant for chronic hepatitis C status post treatment approximately one year ago, cirrhosis with gastric and splenic varices, chronic pancreatitis with pseudocysts, poorly controlled type 2 diabetes, splenic vein thrombosis, chronic back pain, and hypertriglyceridemia that presented to the emergency room with nausea and abdo pricilla pain for approximately 4 days. Patient states he is not feeling well. Complains of generalized abdominal pain that is "band like." Patient is constant. Pain medications are helping. Also has nausea but no vomiting today. Patient is asking for ice chips. Patient denies chest pain or shortness of breath. No headaches or dizziness. No fevers or chills. No dysuria. No diarrhea or constipation. Physical exam: General: Awake and alert sitting up in chair in no acute distress HEENT: Normocephalic, atraumatic. Extraocular muscles intact, pupils equal and reactive, no scleral icterus. Oropharynx is pink moist. Neck is supple. Cardiovascular: Regular rhythm. Normal S1 and S2. No murmurs, rubs, or gallops appreciated Pulmonary: Normal respiratory effort. No rhonchi, rales, or wheezing apprec iated Gastrointestinal: Soft, nondistended. Nontender. Positive bowel sounds all 4 quadrants. No guarding. Musculoskeletal: Moves all extremities. No calf tenderness. No edema appreciated Central nervous system: AAO x 3, CN 2-12 grossly intact. Dermatologic: Skin warm and dry. Assessment and plan: Patient is a 43-year-old male with past medical history significant for chronic hepatitis C status post treatment approximately one year ago, cirrhosis with gastric and splenic varices, chronic pancreatitis with pseudocysts, poorly controlled type 2 diabetes, splenic vein thrombosis, chronic back pain, and hypertriglyceridemia that presented to the emergency room with nausea and abdominal pain for approximately 4 days. 1. Acute on chronic pancreatitis. Secondary to hypertriglyceridemia. Continue IV Fluids. Continue NPO. GI consulted, follow up recommendations. Home Creon held for now. CT abdomen and pelvis per radiologist showed pancreatic pseudocyst in the body of the pancreas no longer seen, mild swelling of the pancreatic head consistent with pancreatitis, the body and tail of the pancreas are atrophic, there is edema of the adjacent stomach with severe marrow thickening, multiple large gastric varices are seen. 2. Hypertriglyceridemia. Home gemfibrozil held for now. Downtrending. Continue IV fluids. Continue to trend triglycerides. 3. Cirrhosis with gastric varices. GI consulted, follow up recommendations. Continue protonix. S/P treatment for Hep C. 4. DM2. Patient NPO. Continue insulin sliding scale. 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 5. HTN. Home medications held for now as patient NPO. Monitor and add IV medications if needed. Case was discussed in detail with the patient regarding current diagnosis and treatment plan. All questions answered.
[2018-12-04] MEDS: Morphine 2 mg/ml ISec IVP PRN ×4 (00:06→19:48)
[2018-12-04] MEDS: Insulin Lispro (humaLOG) LOW Coverage SC SCH (06:51)
--- NOTE | 2018-12-04 07:23 | CP.PCM.CON ---
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 Patient presented with acute abdominal pain similar to other pancreatitis attacks. The pain has been waxing and waning for 4 days, sometimes severe. He has been unable to hold down food or liquids. He denies hematemesis, blood in stool. He admits to 20 pound weight loss over several months. His bowel movements have been formed while on pancreatic enzymes and tolerating well. Workup thus far has shown stable CBC and relatively normal CMP. Blood sugars have been consistently above 200. Triglycerides are [address] abdomen and pelvis showed signs of acute pancreatitis near the head. Also, showing edema of the stomach with large gastric varices. He has been on gemfibrozil before for the elevated triglycerides. He is not taking gemfibrozil at this time, discontinued by a provider. He is only taking Lovaza TID. He has had 12 abdominal/pelvis CTs in the last 3 years Patient admits he is seen a GI physician regularly. His last endoscopy and colonoscopy were less than a year ago. He self reports no concerning findings, just monitoring. Past medical historyin addition to above he has had splenic vein thrombosis. Hepatitis C treated 1 year ago. Family- denies colon cancer, stomach cancer, liver cancer, pancreatic cancer Social- 3 cigars/day, denies alcohol or illicit drug use Surgery- appendectomy, cholecystectomy, pancreatic pseudocyst resection 12 point review of systems negative except for above. Past Patient History - Infectious Disease Hx of Infectious Diseases: None - Tetanus Immunizations Tetanus Immunization: Unknown - Past Medical History & Family History Past Medical History?: Yes - Past Social History Smoking Status: Former Smoker - CARDIAC Hx Cardiac Disorders: No Hx Hypercholesterolemia: Yes Hx Hypertension: Yes - PULMONARY Hx Respiratory Disorders: No - NEUROLOGICAL Hx Neurological Disorder: No - HEENT Hx HEENT Problems: No - RENAL Hx Chronic Kidney Disease: No - ENDOCRINE/METABOLIC Hx Diabetes Mellitus Type 1: Yes Hx Diabetes Mellitus Type 2: Yes - HEMATOLOGICAL/ONCOLOGICAL Hx Blood Disorders: Yes Hx Hepatitis C: Yes - INTEGUMENTARY Hx Dermatological Problems: No - MUSCULOSKELETAL/RHEUMATOLOGICAL Hx Musculoskeletal Disorders: Yes Hx Arthritis: Yes Hx Back Pain: Yes Hx Falls: Yes - GASTROINTESTINAL Hx Gastrointestinal Disorders: Yes Hx Pancreatitis: Yes - GENITOURINARY/GYNECOLOGICAL Hx Genitourinary Disorders: No Hx Urinary Tract Infection: Yes - PSYCHIATRIC Hx Psychophysiologic Disorder: No Hx Anxiety: Yes Hx Depression: Yes Hx Substance Use: No - SURGICAL HISTORY Hx Surgeries: Yes Hx Appendectomy: Yes Hx Cholecystectomy: Yes - ANESTHESIA Hx Anesthesia: Yes Meds Allergies/Adverse Reactions: Allergies Allergy/AdvReac Type Severity Reaction Status Date / Time hair color dye Allergy RASH Uncoded 09/30/18 12:11 - Medications Medications: Current Medications Dextrose (Dextrose 50% Inj) 0 ml IV STAT PRN; Protocol PRN Reason: Hypoglycemia Protocol Dextrose (Dextrose 5% In Water 1000 Ml) 1,000 mls @ 0 mls/hr IV .Q0M PRN; Protocol PRN Reason: Hypoglycemia Protocol Sodium Chloride (Sodium Chloride 0.9%) 1,000 mls @ 150 mls/hr IV .Q6H40M DO Last Admin: 12/03/18 06:33 Dose: 150 mls/hr Insulin Human Regular (Humulin R Med) 0 units SC Q6 DO; Protocol Metoclopramide HCl (Reglan) 10 mg IVP Q6H PRN PRN Reason: Nausea/Vomiting Last Admin: 12/04/18 00:06 Dose: 10 mg Morphine Sulfate (Morphine) 2 mg IVP Q4H PRN PRN Reason: Pain, moderate (4-7) Last Admin: 12/04/18 00:06 Dose: 2 mg Pantoprazole Sodium (Protonix Inj) 40 mg IVP Q12 DO Last Admin: 12/03/18 21:09 Dose: 40 mg Physical Exam - Constitutional Appears: Non-toxic, No Acute Distress, Chronically Ill - Head Exam Head Exam: ATRAUMATIC, NORMAL INSPECTION - Eye Exam Eye Exam: EOMI, Normal appearance - Respiratory Exam Respiratory Exam: Clear to Auscultation Bilateral, NORMAL BREATHING PATTERN - Cardiovascular Exam Cardiovascular Exam: REGULAR RHYTHM, +S1, +S2 - GI/Abdominal Exam GI & Abdominal Exam: Normal Bowel Sounds, Soft, Tenderness. absent: Organomegaly - Extremities Exam Extremities exam: Positive for: normal inspection. Negative for: pedal edema - Neurological Exam Neurological exam: Alert, CN II-XII Intact, Oriented x3 - Psychiatric Exam Psychiatric exam: Normal Affect, Normal Mood - Skin Skin Exam: Normal Color, Warm Results - Vital Signs Recent Vital Signs: Last Vital Signs Temp 97.5 F L 12/03/18 14:00 Pulse 54 L 12/03/18 14:00 Resp 18 12/03/18 14:00 BP 102/58 L 12/03/18 14:00 Pulse Ox 99 12/03/18 14:00 - Labs Result Diagrams: 12/04/18 07:00 12/04/18 07:00 Labs: Laboratory Results - last 24 hr 12/03/18 12/03/18 12/03/18 05:00 07:00 07:00 WBC 4.7 D RBC 4.59 Hgb 11.7 L D Hct 35.0 L MCV 76.3 L MCH 25.5 MCHC 33.4 RDW 15.5 H Plt Count 111 L MPV 9.9 Neut % (Auto) 50.6 Lymph % (Auto) 41.4 H [place] % (Auto) 4.3 Eos % (Auto) 2.8 Baso % (Auto) 0.9 Lymph # (Auto) 1.9 [place] # (Auto) 0.2 Eos # (Auto) 0.1 Baso # (Auto) 0.04 Absolute Neuts (auto) 2.36 Sodium 138 Potassium 3.7 Chloride 106 Carbon Dioxide 24 Anion Gap 12 BUN 12 Creatinine 0.5 L Est GFR ( Amer) > 60 Est GFR (Non-Af Amer) > 60 POC Glucose (mg/dL) Random Glucose 223 H Hemoglobin A1c 13.5 H Calcium 8.1 L Phosphorus 3.4 Magnesium 1.6 L Total Bilirubin 0.8 AST 19 ALT 12 Alkaline Phosphatase 76 Total Protein 6.2 Albumin 2.9 L Globulin 3.3 Albumin/Globulin Ratio 0.9 L TSH 3rd Generation 12/03/18 12/03/18 12/03/18 07:00 11:02 15:49 WBC RBC Hgb Hct MCV MCH MCHC RDW Plt Count MPV Neut % (Auto) Lymph % (Auto) [place] % (Auto) Eos % (Auto) Baso % (Auto) Lymph # (Auto) [place] # (Auto) Eos # (Auto) Baso # (Auto) Absolute Neuts (auto) Sodium Potassium Chloride Carbon Dioxide Anion Gap BUN Creatinine Est GFR ( Amer) Est GFR (Non-Af Amer) POC Glucose (mg/dL) 228 H 254 H Random Glucose Hemoglobin A1c Calcium Phosphorus Magnesium Total Bilirubin AST ALT Alkaline Phosphatase Total Protein Albumin Globulin Albumin/Globulin Ratio TSH 3rd Generation 1.02 12/03/18 12/04/18 20:38 06:46 WBC RBC Hgb Hct MCV MCH MCHC RDW Plt Count MPV Neut % (Auto) Lymph % (Auto) [place] % (Auto) Eos % (Auto) Baso % (Auto) Lymph # (Auto) [place] # (Auto) Eos # (Auto) Baso # (Auto) Absolute Neuts (auto) Sodium Potassium Chloride Carbon Dioxide Anion Gap BUN Creatinine Est GFR ( Amer) Est GFR (Non-Af Amer) POC Glucose (mg/dL) 288 H 290 H Random Glucose Hemoglobin A1c Calcium Phosphorus Magnesium Total Bilirubin AST ALT Alkaline Phosphatase Total Protein Albumin Globulin Albumin/Globulin Ratio TSH 3rd Generation Assessment & Plan - Assessment and Plan (Free Text) Assessment: #acute on chronic pancreatitis, recurrent, due to hypertriglyceridemia, tolerating pancreatic enzyme replacement #Hepatitis C cirrhosis status post treatment 1 year ago - MELD score 7 #gastric varices, splenic vein thrombosis #Uncontrolled diabetes, Hb A1c >3 #weight loss PLAN: continue hypertriglyceridemia treatment, would consider fenofibrate, but this patient needs to be evaluated by cabin equipment supervisor for the right regimen as he has had multiple episodes of recurrent HTG pancreatitis. monitor triglycerides, Goal less than 500. Ideally, less than 200 as outpatient. -Would consider genetic component to HTG, father from [place] at age of 53. Continue IV fluid resuscitation antiemetics as needed. Recommend Zofran initially and Reglan if needed. Slowly advance diet as tolerated. Ultimately low-fat recommended. blood sugars goal less than 200 -Recommend follow up with primary GI as previously scheduled to monitor gastric varices. Case will be discussed with Dr. Cadet, this is a preliminary note. - Date & Time Date: 12/04/18 Time: 07:16 <Olivier Cadet Y - Last Filed: 12/04/18 08:31> Meds - Medications Medications: Current Medications Dextrose (Dextrose 50% Inj) 0 ml IV STAT PRN; Protocol PRN Reason: Hypoglycemia Protocol Famotidine (Pepcid) 40 mg PO HS DO Fenofibrate (Tricor) 145 mg PO DAILY DO Dextrose (Dextrose 5% In Water 1000 Ml) 1,000 mls @ 0 mls/hr IV .Q0M PRN; Protocol PRN Reason: Hypoglycemia Protocol Sodium Chloride (Sodium Chloride 0.9%) 1,000 mls @ 150 mls/hr IV .Q6H40M DO Last Admin: 12/03/18 06:33 Dose: 150 mls/hr Insulin Human Regular (Humulin R Med) 0 units SC Q6 DO; Protocol Metoclopramide HCl (Reglan) 10 mg IVP Q6H PRN PRN Reason: Nausea/Vomiting Last Admin: 12/04/18 07:14 Dose: 10 mg Morphine Sulfate (Morphine) 2 mg IVP Q4H PRN PRN Reason: Pain, moderate (4-7) Last Admin: 12/04/18 07:13 Dose: 2 mg Results - Vital Signs Recent Vital Signs: Last Vital Signs Temp 97.6 F 12/04/18 06:00 Pulse 61 12/04/18 06:00 Resp 18 12/04/18 06:00 BP 111/67 12/04/18 06:00 Pulse Ox 98 12/04/18 06:00 - Labs Result Diagrams: 12/04/18 07:00 12/04/18 07:00 Labs: Laboratory Results - last 24 hr 12/03/18 12/03/18 12/03/18 05:00 11:02 15:49 WBC RBC Hgb Hct MCV MCH MCHC RDW Plt Count MPV Neut % (Auto) Lymph % (Auto) [place] % (Auto) Eos % (Auto) Baso % (Auto) Lymph # (Auto) [place] # (Auto) Eos # (Auto) Baso # (Auto) Absolute Neuts (auto) Sodium Potassium Chloride Carbon Dioxide Anion Gap BUN Creatinine Est GFR ( Amer) Est GFR (Non-Af Amer) POC Glucose (mg/dL) 228 H 254 H Random Glucose Hemoglobin A1c 13.5 H Calcium Total Bilirubin AST ALT Alkaline Phosphatase Total Protein Albumin Globulin Albumin/Globulin Ratio Triglycerides Cholesterol LDL Cholesterol Direct HDL Cholesterol 12/03/18 12/04/18 12/04/18 20:38 06:46 07:00 WBC 3.6 L D RBC 4.57 Hgb 11.5 L Hct 34.8 L MCV 76.1 L MCH 25.2 MCHC 33.0 RDW 15.4 H Plt Count 99 L MPV 10.2 Neut % (Auto) 43.4 L Lymph % (Auto) 45.6 H [place] % (Auto) 4.8 Eos % (Auto) 4.8 Baso % (Auto) 1.4 Lymph # (Auto) 1.6 [place] # (Auto) 0.2 Eos # (Auto) 0.2 Baso # (Auto) 0.05 Absolute Neuts (auto) 1.54 Sodium Potassium Chloride Carbon Dioxide Anion Gap BUN Creatinine Est GFR ( Amer) Est GFR (Non-Af Amer) POC Glucose (mg/dL) 288 H 290 H Random Glucose Hemoglobin A1c Calcium Total Bilirubin AST ALT Alkaline Phosphatase Total Protein Albumin Globulin Albumin/Globulin Ratio Triglycerides Cholesterol LDL Cholesterol Direct HDL Cholesterol 12/04/18 07:00 WBC RBC Hgb Hct MCV MCH MCHC RDW Plt Count MPV Neut % (Auto) Lymph % (Auto) [place] % (Auto) Eos % (Auto) Baso % (Auto) Lymph # (Auto) [place] # (Auto) Eos # (Auto) Baso # (Auto) Absolute Neuts (auto) Sodium 135 Potassium 3.7 Chloride 104 Carbon Dioxide 25 Anion Gap 10 BUN 6 L Creatinine 0.5 L Est GFR ( Amer) > 60 Est GFR (Non-Af Amer) > 60 POC Glucose (mg/dL) Random Glucose 289 H Hemoglobin A1c Calcium 8.2 L Total Bilirubin 0.8 AST 20 ALT 13 Alkaline Phosphatase 70 Total Protein 6.0 Albumin 2.9 L Globulin 3.1 Albumin/Globulin Ratio 0.9 L Triglycerides > 525 H Cholesterol 208 H LDL Cholesterol Direct 45 HDL Cholesterol 19 L Attending/Attestation - Attestation I have fully participated in the care of the patient.: Yes I have reviewed all pertinent clinical information: Yes Notes (Text): 12/04/18 08:27 Recurrent pancreatitis secondary to hypertriglyceridemia HCV s/p treatment? DM Abdominal pain - resolving pancreatitis CT imaging reviewed by me showing resolution of previously visualized pseudocyst, + peripancreatic edema consistent with acute pancreatitis - Full liquid diet as tolerated - Continue with IVF hydration, supportive care - Suggest endocrine consultation given significant dyslipidemia and uncontrolled DM resulting in organ damage - Will continue to monitor patient clinical course, after hospital discharge patient to follow up with primary GI physician
[2018-12-04 07:25] LABS: BASO # 0.05 K/mm3 (0.0-2.0); BASO % 1.4 % (0.0-3.0); EOS # 0.2 (0.0-0.7); EOS % 4.8 % (1.5-5.0); HEMOGLOBIN 11.5 g/dL (14.0-18.0); LYMPH # 1.6 (1.2-3.4); LYMPH % 45.6 % (22.0-35.0); MEAN CELL VOLUME 76.1 fl (80.0-105.0); MEAN CORPUSCULAR HEMOGLOBIN 25.2 pg (25.0-35.0); MEAN PLATELET VOLUME 10.2 fl (7.0-11.0); MONO # 0.2 (0.1-0.6); MONO % 4.8 % (1.0-6.0); RBC 4.57 10^6/uL (3.5-6.1); RED CELL DISTRIBUTION WIDTH 15.4 % (11.5-14.5); WHITE BLOOD COUNT 3.6 10^3/uL (4.5-11.0)
[2018-12-04] MEDS ORDERED: Insulin Reg-MEDIUM-Coverage SC SCH (07:30)
[2018-12-04 07:43] LABS: ALB/GLOB RATIO 0.9 (1.1-1.8); ALBUMIN 2.9 g/dL (3.0-4.8); ALT/SGPT 13 U/L (7-56); AST/SGOT 20 U/L (17-59); BLOOD UREA NITROGEN 6 mg/dL (7-21); CALCIUM 8.2 mg/dL (8.4-10.5); GFR NON-AFRICAN AMERICAN > 60; HDL CHOLESTEROL 19 mg/dL (29-60)
[2018-12-04 07:51] LABS: LDL CHOLESTEROL 45 mg/dL (0-129)
[2018-12-04] MEDS: Insulin Reg-MEDIUM-Coverage SC SCH ×2 (11:53→18:34)
--- NOTE | 2018-12-04 12:47 | CP.PCM.PN ---
<Joshua Barrios - Last Filed: 12/04/18 12:42> Subjective - Date & Time of Evaluation Date of Evaluation: 12/04/18 Time of Evaluation: 08:00 - Subjective Subjective: Joshua Barrios PGY1 Medicine Progress Note Patient seen and examined at bedside this morning. Continues to admit to diffuse abdominal pain rated 8/10 that is unchanged from yesterday; however he says nausea is improved today. Tolerating CLD without complaints. Denies any new complaints today. Objective - Vital Signs/Intake and Output Vital Signs (last 24 hours): Temp Pulse Resp BP Pulse Ox 97.6 F 61 18 111/67 98 12/04/18 06:00 12/04/18 06:00 12/04/18 06:00 12/04/18 06:00 12/04/18 06:00 Intake and Output: 12/04/18 12/04/18 06:59 18:59 Intake Total 540 Balance 540 - Medications Medications: Current Medications Dextrose (Dextrose 50% Inj) 0 ml IV STAT PRN; Protocol PRN Reason: Hypoglycemia Protocol Famotidine (Pepcid) 40 mg PO HS [facility] Fenofibrate (Tricor) 145 mg PO DAILY [facility] Last Admin: 12/04/18 09:59 Dose: 145 mg Dextrose (Dextrose 5% In Water 1000 Ml) 1,000 mls @ 0 mls/hr IV .Q0M PRN; Protocol PRN Reason: Hypoglycemia Protocol Sodium Chloride (Sodium Chloride 0.9%) 1,000 mls @ 150 mls/hr IV .Q6H40M [facility] Last Admin: 12/03/18 06:33 Dose: 150 mls/hr Insulin Human Regular (Humulin R Med) 0 units SC Q6 DO; Protocol Last Admin: 12/04/18 11:53 Dose: 3 unit Metoclopramide HCl (Reglan) 10 mg IVP Q6H PRN PRN Reason: Nausea/Vomiting Last Admin: 12/04/18 07:14 Dose: 10 mg Morphine Sulfate (Morphine) 2 mg IVP Q4H PRN PRN Reason: Pain, moderate (4-7) Last Admin: 12/04/18 07:13 Dose: 2 mg - Labs Labs: 12/04/18 07:00 12/04/18 07:00 PT 12.1 SECONDS (9.4-12.5) 12/02/18 16:00 INR 1.09 12/02/18 16:00 APTT 33.9 Seconds (26.9-38.3) 12/02/18 16:00 - Constitutional Appears: Unkempt - Head Exam Head Exam: ATRAUMATIC, NORMAL INSPECTION - Eye Exam Eye Exam: EOMI Pupil Exam: PERRL - ENT Exam ENT Exam: Mucous Membranes Moist - Respiratory Exam Respiratory Exam: Clear to Ausculation Bilateral. absent: Accessory Muscle Use, Wheezes, Respiratory Distress - Cardiovascular Exam Cardiovascular Exam: REGULAR RHYTHM, +S1, +S2 - GI/Abdominal Exam GI & Abdominal Exam: Soft, Tenderness, Normal Bowel Sounds. absent: Guarding, Rigid Additional comments: generalized tenderness appreciated with palpation - Extremities Exam Extremities Exam: Normal Inspection. absent: Calf Tenderness, Tenderness - Back Exam Back Exam: NORMAL INSPECTION - Neurological Exam Neurological Exam: Alert, CN II-XII Intact, Oriented x3 - Skin Skin Exam: Normal Color, Warm Assessment and Plan - Assessment and Plan (Free Text) Assessment: This is a 43 yo Irish M with PMH of Chronic Hep C (completed tx course ~1 yr ago), cirrhosis with gastric/splenic varices, chronic pancreatitis with pseudocysts, poorly controlled DMII, splenic vein thrombosis, chronic back pain, and HLD/HTG who presents with complaint of nausea and abdominal pain with minimal PO intake x4 days, and uncontrolled vomiting since today and admitted for acute on chronic pancreatitis. Tolerating CLD diet. Plan: Acute on chronic pancreatitis 2/2 elevated TG -continue CLD, NS at 150cc/hr -morphine prn, reglan prn -TG downtrending, will monitor -Endo on consult, Dr. Saavedra for uncontrolled triglycerides and glucose -holding oral meds at this time -CTAP 12/02 shows mild swelling of the pancreatic head consistent with pancreatitis. Body and tail of pancreas are atrophic. Edema of the adjacent stomach with severe mural thickening. Multiple large gastric varices are seen -GI on consult, Dr. Cadet -started on pepcid due ti thrombocytopenia Hx of DM - uncontrolled -A1c is 13.5 -ISS increased to medium q6 -endo on consult Hx of HTN -currently holding oral BP meds -BP is normotensive this morning, monitor Cirrhosis 2/2 hep C -s/p tx for hep C approx 1 yr ago -avoid hepatotoxic meds if possible Hx of HLD -repeat lipid panel in AM -holding oral meds for now PPX -SCD and pepcid Patient seen and case discussed with attending, Shania Angeles <Maria Luisa oFrde R - Last Filed: 12/04/18 14:23> Objective - Vital Signs/Intake and Output Vital Signs (last 24 hours): Temp Pulse Resp BP Pulse Ox 97.6 F 61 18 111/67 98 12/04/18 06:00 12/04/18 06:00 12/04/18 06:00 12/04/18 06:00 12/04/18 06:00 Intake and Output: 12/04/18 12/04/18 06:59 18:59 Intake Total 540 Balance 540 - Medications Medications: Current Medications Dextrose (Dextrose 50% Inj) 0 ml IV STAT PRN; Protocol PRN Reason: Hypoglycemia Protocol Famotidine (Pepcid) 40 mg PO HS DO Fenofibrate (Tricor) 145 mg PO DAILY DO Last Admin: 12/04/18 09:59 Dose: 145 mg Dextrose (Dextrose 5% In Water 1000 Ml) 1,000 mls @ 0 mls/hr IV .Q0M PRN; Protocol PRN Reason: Hypoglycemia Protocol Sodium Chloride (Sodium Chloride 0.9%) 1,000 mls @ 150 mls/hr IV .Q6H40M DO Last Admin: 12/03/18 06:33 Dose: 150 mls/hr Insulin Human Regular (Humulin R Med) 0 units SC Q6 DO; Protocol Last Admin: 12/04/18 11:53 Dose: 3 unit Metoclopramide HCl (Reglan) 10 mg IVP Q6H PRN PRN Reason: Nausea/Vomiting Last Admin: 12/04/18 13:19 Dose: 10 mg Morphine Sulfate (Morphine) 2 mg IVP Q4H PRN PRN Reason: Pain, moderate (4-7) Last Admin: 12/04/18 13:20 Dose: 2 mg Creon 36,000 Units Capsule (Home Med) 2 tab PO TID DO - Labs Labs: 12/04/18 07:00 12/04/18 07:00 PT 12.1 SECONDS (9.4-12.5) 12/02/18 16:00 INR 1.09 12/02/18 16:00 APTT 33.9 Seconds (26.9-38.3) 12/02/18 16:00 Attending/Attestation - Attestation I have personally seen and examined this patient.: Yes I have fully participated in the care of the patient.: Yes I have reviewed all pertinent clinical information, including history, physical exam and plan: Yes Notes (Text): Patient seen and examined by me with resident at 11AM on 12/04/18. Case including HPI, physical exam, and assessment and plan discussed with resident. Agree with above with following additions/corrections. Patient is a 43-year-old male with past medical history significant for chronic hepatitis C status post treatment approximately one year ago, cirrhosis with gastric and splenic varices, chronic pancreatitis with pseudocysts, poorly controlled type 2 diabetes, splenic vein thrombosis, chronic back pain, and hypertriglyceridemia that presented to the emergency room with nausea and abdominal pain for approximately 4 days. Patient states he is feeling a little better. Still with generalized abdominal pain. However, he is tolerating diet and feels hungry. Pain medications are helping. No nausea or vomiting today. No chest pain or shortness of breath. No headaches or dizziness. No fevers or chills. No dysuria. No diarrhea or constipation. Physical exam: General: Awake and alert lying in bed in no acute distress HEENT: Normocephalic, atraumatic. Extraocular muscles intact, pupils equal and reactive, no scleral icterus. Oropharynx is pink moist. Neck is supple. Cardiovascular: Regular rhythm. Normal S1 and S2. No murmurs, rubs, or gallops appreciated Pulmonary: Normal respiratory effort. No rhonchi, rales, or wheezing appreciated Gastrointestinal: Soft, nondistended. Positive generalized abdominal tenderness with light palpation. Positive bowel sounds all 4 quadrants. No guarding. Musculoskeletal: Moves all extremities. No calf tenderness. No edema appreciated Central nervous system: AAO x 3, CN 2-12 grossly intact. Dermatologic: Skin warm and dry. Assessment and plan: Patient is a 43-year-old male with past medical history significant for chronic hepatitis C status post treatment approximately one year ago, cirrhosis with gastric and splenic varices, chronic pancreatitis with pseudocysts, poorly controlled type 2 diabetes, splenic vein thrombosis, chronic back pain, and hypertriglyceridemia that presented to the emergency room with nausea and abdominal pain for approximately 4 days. 1. Acute on chronic pancreatitis. Secondary to hypertriglyceridemia. Pointer Helper consulted. Continue IV Fluids. Continue liquid diet and advance as tolerated. GI recommendations appreciated. Restart home Creon. CT abdomen and pelvis per radiologist showed pancreatic pseudocyst in the body of the pancreas no longer seen, mild swelling of the pancreatic head consistent with pancreatitis, the body and tail of the pancreas are atrophic, there is edema of the adjacent stomach with severe marrow thickening, multiple large gastric varices are seen. 2. Hypertriglyceridemia. Downtrending. Started on fenofibrate. Continue IV fluids. Continue to trend triglycerides. Pointer Helper consulted. 3. Cirrhosis with gastric varices. GI recommendations appreciated. Patient will need outpatient follow up with GI. Continue protonix. S/P treatment for Hep C. 4. DM2. Continue insulin sliding scale. Pointer Helper consulted, follow up recommendations. Monitor accuchecks. 5. HTN. Home medications held for now, patient is normotensive. Monitor and add medications if needed. Case was discussed in detail with the patient regarding current diagnosis and treatment plan. All questions answered.
[2018-12-04] MEDS: Sodium Chloride 0.9% 1,000 ML IV SCH ×2 (14:37→14:38)
[2018-12-04] MEDS: CREON 36000 UNIT PO SCH (18:34)
[2018-12-04 23:00] VITALS: O2SAT 100
[2018-12-05] MEDS: Morphine 2 mg/ml ISec IVP PRN ×4 (01:56→21:10)
[2018-12-05] MEDS: Insulin Lispro (humaLOG) LOW Coverage SC SCH ×4 (04:49→21:09)
[2018-12-05 06:48] LABS: BASO # 0.02 K/mm3 (0.0-2.0); BASO % 0.6 % (0.0-3.0); EOS # 0.1 (0.0-0.7); EOS % 4.5 % (1.5-5.0); HEMOGLOBIN 11.9 g/dL (14.0-18.0); LYMPH # 1.4 (1.2-3.4); LYMPH % 45.5 % (22.0-35.0); MEAN CELL VOLUME 76.1 fl (80.0-105.0); MEAN CORPUSCULAR HEMOGLOBIN 25.9 pg (25.0-35.0); MEAN PLATELET VOLUME 10.1 fl (7.0-11.0); MONO # 0.2 (0.1-0.6); MONO % 6.1 % (1.0-6.0); RBC 4.6 10^6/uL (3.5-6.1); RED CELL DISTRIBUTION WIDTH 15.1 % (11.5-14.5); WHITE BLOOD COUNT 3.1 10^3/uL (4.5-11.0)
[2018-12-05 06:54] LABS: ALB/GLOB RATIO 1.1 (1.1-1.8); ALBUMIN 3.3 g/dL (3.0-4.8); ALT/SGPT 18 U/L (7-56); AST/SGOT 23 U/L (17-59); BLOOD UREA NITROGEN 4 mg/dL (7-21); CALCIUM 8.5 mg/dL (8.4-10.5); GFR NON-AFRICAN AMERICAN > 60; HDL CHOLESTEROL 18 mg/dL (29-60)
[2018-12-05 07:04] LABS: LDL CHOLESTEROL 65 mg/dL (0-129)
--- NOTE | 2018-12-05 08:10 | CON ---
DATE: 12/04/2018 ENDOCRINOLOGY CONSULT Room 576 This is a 43-year-old male with known history of type 2 insulin-requiring diabetes, presenting here with diffuse upper abdominal pain with supervening nausea, dyspepsia, and vomiting, worse over the last 4 days or so prior to admission and is now being referred for diabetic evaluation and management. PAST MEDICAL HISTORY: History of type 2 insulin-requiring diabetes, history of hypertension and dyslipidemia, history of chronic pancreatitis with pseudocyst in the pancreas, and also previous splenic vein thrombosis. He has chronic hepatitis C with underlying cirrhosis and gastric varices as noted. FAMILY HISTORY: Positive for diabetes and hypertension. SOCIAL HISTORY: The patient has a supportive family. No known substance use. REVIEW OF SYSTEMS: He admits to generalized body weakness with episodic bouts of dizziness and lightheadedness with suboptimal energy level as noted. No chest pains or palpitations. His oral intake has been variable with nausea, dyspepsia, and supervening upper abdominal pain. PHYSICAL EXAMINATION: GENERAL: This is an average build male in no apparent distress. VITAL SIGNS: Blood pressure of 144/90, pulse of 80 beats per minute and regular, temperature 98, respirations 20, height is 6 feet 2 inches, weight is 148 pounds. HEENT: Head normocephalic. Eyes anicteric with pink conjunctivae. Funduscopy not possible at this time. Ears, nose, and throat otherwise normal. NECK: Supple. Thyroid gland is normal in size. No carotid bruits or cervical adenopathy. CARDIOPULMONARY: Some adynamic precordium. S1, S2 are rapid and regular. LUNGS: Clear to auscultation. ABDOMEN: Flat, soft, with positive bowel sounds. EXTREMITIES: No peripheral edema. Pulses are +2 bilaterally. LABORATORY DATA: Chemistries showed BUN of 6, sodium 135, potassium 3.7, chloride 104, CO2 of 25, glucose 289, and creatinine is 0.5. ASSESSMENT: This is a 43-year-old male with acute pancreatitis and underlying dyslipidemia and dehydration with prerenal azotemia as noted. He also has possible acute pancreatitis of unknown etiology as the initial comprehensive hormonal profile was optimal as noted thereof. PLAN OF MANAGEMENT: As discussed with the patient and staff, we will continue the present low-dose correction scale using Humalog insulin at a medium coverage scale to obviate hypoglycemia. His hemoglobin A1c is 13.5% which is extremely elevated and indicative of suboptimal metabolic control of his diabetic condition even prior to this admission. We will follow. Thank you. Gaby Saavedra MD
[2018-12-05] MEDS: Insulin Lispro 1 UNITS/0.01 ML SC SCH ×3 (08:43→17:57)
--- NOTE | 2018-12-05 09:59 | CP.PCM.PN ---
<Waqar Ayala - Last Filed: 12/05/18 16:58> Subjective - Date & Time of Evaluation Date of Evaluation: 12/05/18 Time of Evaluation: 09:58 - Subjective Subjective: Patient doing well. No acute overnight events. Abdominal pain is minimal, but mostly pain free. He denies nausea. Requesting solid food. Objective - Vital Signs/Intake and Output Vital Signs (last 24 hours): Temp Pulse Resp BP Pulse Ox 98.2 F 59 L 18 137/75 100 12/05/18 06:00 12/05/18 06:00 12/05/18 06:00 12/05/18 06:00 12/05/18 06:00 Intake and Output: 12/05/18 12/05/18 06:59 18:59 Intake Total 660 Balance 660 - Medications Medications: Current Medications Dextrose (Dextrose 50% Inj) 0 ml IV STAT PRN; Protocol PRN Reason: Hypoglycemia Protocol Famotidine (Pepcid) 40 mg PO HS [facility] Last Admin: 12/04/18 22:11 Dose: 40 mg Fenofibrate (Tricor) 145 mg PO DAILY [facility] Last Admin: 12/05/18 09:55 Dose: 145 mg Dextrose (Dextrose 5% In Water 1000 Ml) 1,000 mls @ 0 mls/hr IV .Q0M PRN; Protocol PRN Reason: Hypoglycemia Protocol Sodium Chloride (Sodium Chloride 0.9%) 1,000 mls @ 150 mls/hr IV .Q6H40M [facility] Last Admin: 12/04/18 14:38 Dose: 150 mls/hr Insulin Detemir (Levemir) 14 unit SC [facility] Insulin Human Lispro (Humalog Low) 0 units SC [facility]; Protocol Last Admin: 12/05/18 08:43 Dose: Not Given Insulin Human Lispro (Humalog) 4 units SC AC [facility] Last Admin: 12/05/18 08:43 Dose: 4 units Metoclopramide HCl (Reglan) 10 mg IVP Q6H PRN PRN Reason: Nausea/Vomiting Last Admin: 12/05/18 08:44 Dose: 10 mg Morphine Sulfate (Morphine) 2 mg IVP Q4H PRN PRN Reason: Pain, moderate (4-7) Last Admin: 12/05/18 08:44 Dose: [address] 36,000 Units Capsule (Home Med) 2 tab PO TID DO Last Admin: 12/04/18 18:34 Dose: Not Given Zolpidem Tartrate (Ambien) 5 mg PO ONCE PRN; Protocol PRN Reason: Insomnia Last Admin: 12/04/18 22:11 Dose: 5 mg - Labs Labs: 12/05/18 06:00 12/05/18 06:00 PT 12.1 SECONDS (9.4-12.5) 12/02/18 16:00 INR 1.09 12/02/18 16:00 APTT 33.9 Seconds (26.9-38.3) 12/02/18 16:00 - Constitutional Appears: Non-toxic, No Acute Distress - Head Exam Head Exam: ATRAUMATIC, NORMAL INSPECTION - Eye Exam Eye Exam: EOMI, Normal appearance - Respiratory Exam Respiratory Exam: Clear to Ausculation Bilateral, NORMAL BREATHING PATTERN - Cardiovascular Exam Cardiovascular Exam: REGULAR RHYTHM, +S1, +S2 - GI/Abdominal Exam GI & Abdominal Exam: Soft, Normal Bowel Sounds. absent: Tenderness, Organomegaly - Extremities Exam Extremities Exam: Normal Inspection. absent: Pedal Edema - Neurological Exam Neurological Exam: Alert, Awake, Oriented x3 - Psychiatric Exam Psychiatric exam: Normal Affect, Normal Mood Assessment and Plan - Assessment and Plan (Free Text) Assessment: #acute on chronic pancreatitis, recurrent, due to hypertriglyceridemia, tolerating pancreatic enzyme replacement #Hepatitis C status post treatment 1 year ago #gastric varices, splenic vein thrombosis #Uncontrolled diabetes, Hb A1c >13 #weight loss PLAN: continue hypertriglyceridemia treatment, would consider fenofibrate -See endocrinology conultant recs. monitor triglycerides, Goal less than 500. Ideally, less than 200 as outpa tient. -Would consider genetic component to HTG, father from [place] at age of 53. antiemetics as needed. Recommend Zofran initially and Reglan if needed. Start low-fat, diabetic diet. blood sugars goal less than 200 -Recommend follow up with primary GI as previously scheduled to monitor gastric varices. Case discussed with Dr. Cadet, see attestation. <Olivier Cadet - Last Filed: 12/05/18 17:11> Objective - Vital Signs/Intake and Output Vital Signs (last 24 hours): Temp Pulse Resp BP Pulse Ox 98.2 F 59 L 18 137/75 100 12/05/18 06:00 12/05/18 06:00 12/05/18 06:00 12/05/18 06:00 12/05/18 06:00 Intake and Output: 12/05/18 12/05/18 06:59 18:59 Intake Total 660 Balance 660 - Medications Medications: Current Medications Amylase (Pancrease 73076 U-5000 U-33109 U) 10,000 unit PO TID [facility] Last Admin: 12/05/18 15:02 Dose: 10,000 unit Dextrose (Dextrose 50% Inj) 0 ml IV STAT PRN; Protocol PRN Reason: Hypoglycemia Protocol Famotidine (Pepcid) 40 mg PO HS [facility] Last Admin: 12/04/18 22:11 Dose: 40 mg Fenofibrate (Tricor) 145 mg PO DAILY [facility] Last Admin: 12/05/18 09:55 Dose: 145 mg Dextrose (Dextrose 5% In Water 1000 Ml) 1,000 mls @ 0 mls/hr IV .Q0M PRN; Protocol PRN Reason: Hypoglycemia Protocol Sodium Chloride (Sodium Chloride 0.9%) 1,000 mls @ 150 mls/hr IV .Q6H40M [facility] Last Admin: 12/05/18 15:04 Dose: 150 mls/hr Insulin Detemir (Levemir) 14 unit SC [facility] Insulin Human Lispro (Humalog Low) 0 units SC [facility]; Protocol Last Admin: 12/05/18 13:40 Dose: Not Given Insulin Human Lispro (Humalog) 4 units SC [facility] Last Admin: 12/05/18 13:17 Dose: 4 units Metoclopramide HCl (Reglan) 10 mg IVP Q6H PRN PRN Reason: Nausea/Vomiting Last Admin: 12/05/18 15:02 Dose: 10 mg Morphine Sulfate (Morphine) 1 mg IVP Q4H PRN PRN Reason: Pain, moderate (4-7) Last Admin: 12/05/18 15:03 Dose: 1 mg Zolpidem Tartrate (Ambien) 5 mg PO ONCE PRN; Protocol PRN Reason: Insomnia Last Admin: 12/04/18 22:11 Dose: 5 mg - Labs Labs: 12/05/18 06:00 12/05/18 06:00 PT 12.1 SECONDS (9.4-12.5) 12/02/18 16:00 INR 1.09 12/02/18 16:00 APTT 33.9 Seconds (26.9-38.3) 12/02/18 16:00 Attending/Attestation - Attestation I have fully participated in the care of the patient.: Yes I have reviewed all pertinent clinical information, including history, physical exam and plan: Yes Notes (Text): 12/05/18 17:09 Acute on chronic pancreatitis secondary to hypertriglyceridemia History of HCV DM - Advance diet as tolerated - Continue with pancreatic enzyme replacement therapy - Follow up endocrinology recommendations regarding lipid and diabetic management - No further planned GI intervention at this time, will sign off case. Please reconsult as necessary, thank you.
--- NOTE | 2018-12-05 13:36 | CP.PCM.PN ---
<Joshua Barrios - Last Filed: 12/05/18 13:40> Subjective - Date & Time of Evaluation Date of Evaluation: 12/05/18 Time of Evaluation: 09:45 - Subjective Subjective: Joshua Barrios PGY1 Medicine Progress Note Patient seen and examined at bedside this morning. Continues to admit to diffuse abdominal pain that is slightly improved from yesterday and admits to 5-6 loose BM overnight. Tolerating FLD and desires diet advancement. Denies any new complaints today. Objective - Vital Signs/Intake and Output Vital Signs (last 24 hours): Temp Pulse Resp BP Pulse Ox 98.2 F 59 L 18 137/75 100 12/05/18 06:00 12/05/18 06:00 12/05/18 06:00 12/05/18 06:00 12/05/18 06:00 Intake and Output: 12/05/18 12/05/18 06:59 18:59 Intake Total 660 Balance 660 - Medications Medications: Current Medications Amylase (Pancrease 11199 U-5000 U-11827 U) 10,000 unit PO TID [facility] Dextrose (Dextrose 50% Inj) 0 ml IV STAT PRN; Protocol PRN Reason: Hypoglycemia Protocol Famotidine (Pepcid) 40 mg PO HS [facility] Last Admin: 12/04/18 22:11 Dose: 40 mg Fenofibrate (Tricor) 145 mg PO DAILY [facility] Last Admin: 12/05/18 09:55 Dose: 145 mg Dextrose (Dextrose 5% In Water 1000 Ml) 1,000 mls @ 0 mls/hr IV .Q0M PRN; Protocol PRN Reason: Hypoglycemia Protocol Sodium Chloride (Sodium Chloride 0.9%) 1,000 mls @ 150 mls/hr IV .Q6H40M [facility] Last Admin: 12/04/18 14:38 Dose: 150 mls/hr Insulin Detemir (Levemir) 14 unit SC HS [facility] Insulin Human Lispro (Humalog Low) 0 units SC [facility]; Protocol Last Admin: 12/05/18 08:43 Dose: Not Given Insulin Human Lispro (Humalog) 4 units SC AC [facility] Last Admin: 12/05/18 08:43 Dose: 4 units Metoclopramide HCl (Reglan) 10 mg IVP Q6H PRN PRN Reason: Nausea/Vomiting Last Admin: 12/05/18 08:44 Dose: 10 mg Morphine Sulfate (Morphine) 1 mg IVP Q4H PRN PRN Reason: Pain, moderate (4-7) Zolpidem Tartrate (Ambien) 5 mg PO ONCE PRN; Protocol PRN Reason: Insomnia Last Admin: 12/04/18 22:11 Dose: 5 mg - Labs Labs: 12/05/18 06:00 12/05/18 06:00 PT 12.1 SECONDS (9.4-12.5) 12/02/18 16:00 INR 1.09 12/02/18 16:00 APTT 33.9 Seconds (26.9-38.3) 12/02/18 16:00 - Constitutional Appears: Unkempt - Head Exam Head Exam: ATRAUMATIC, NORMAL INSPECTION - Eye Exam Eye Exam: EOMI Pupil Exam: PERRL - ENT Exam ENT Exam: Mucous Membranes Moist - Respiratory Exam Respiratory Exam: Clear to Ausculation Bilateral. absent: Accessory Muscle Use, Wheezes, Respiratory Distress - Cardiovascular Exam Cardiovascular Exam: REGULAR RHYTHM, +S1, +S2 - GI/Abdominal Exam GI & Abdominal Exam: Soft, Tenderness, Normal Bowel Sounds. absent: Guarding, Rigid Additional comments: generalized tenderness appreciated with palpation in the epigastric region - Extremities Exam Extremities Exam: Normal Inspection. absent: Calf Tenderness, Tenderness - Back Exam Back Exam: NORMAL INSPECTION - Neurological Exam Neurological Exam: Alert, CN II-XII Intact, Oriented x3 - Skin Skin Exam: Normal Color, Warm Assessment and Plan - Assessment and Plan (Free Text) Assessment: This is a 43 yo Romanian M with PMH of Chronic Hep C (completed tx course ~1 yr ago), cirrhosis with gastric/splenic varices, chronic pancreatitis with pseudocysts, poorly controlled DMII, splenic vein thrombosis, chronic back pain, and HLD/HTG who presents with complaint of nausea and abdominal pain with mi nimal PO intake x4 days, and uncontrolled vomiting since today and admitted for acute on chronic pancreatitis. Tolerating CLD diet. Plan: Acute on chronic pancreatitis 2/2 elevated TG -currently on FLD, will advance to soft diet low fat low carb for dinner -continue NS at 150cc/hr -morphine prn, reglan prn -TG 554 today, will repeat tomorrow -Endo on consult, Dr. Saavedra for uncontrolled triglycerides and glucose -holding oral meds at this time -CTAP 12/02 shows mild swelling of the pancreatic head consistent with pancreatitis. Body and tail of pancreas are atrophic. Edema of the adjacent stomach with severe mural thickening. Multiple large gastric varices are seen -GI on consult, Dr. Cadet -started on pepcid due to thrombocytopenia Hx of DM - uncontrolled -A1c is 13.5 -lispro ACHS, humalog 4units AC, levemir 14 units HS -endo on consult Hx of HTN -currently holding oral BP meds -BP is normotensive today Cirrhosis 2/2 hep C -s/p tx for hep C approx 1 yr ago -avoid hepatotoxic meds if possible Hx of HLD -repeat lipid panel in AM -tricor daily PPX -SCD and pepcid Patient seen and case discussed with attending, Dr. Lackey <Mohit Lackey - Last Filed: 12/05/18 14:04> Objective - Vital Signs/Intake and Output Vital Signs (last 24 hours): Temp Pulse Resp BP Pulse Ox 98.2 F 59 L 18 137/75 100 12/05/18 06:00 12/05/18 06:00 12/05/18 06:00 12/05/18 06:00 12/05/18 06:00 Intake and Output: 12/05/18 12/05/18 06:59 18:59 Intake Total 660 Balance 660 - Medications Medications: Current Medications Amylase (Pancrease 93342 U-5000 U-00472 U) 10,000 unit PO TID [facility] Dextrose (Dextrose 50% Inj) 0 ml IV STAT PRN; Protocol PRN Reason: Hypoglycemia Protocol Famotidine (Pepcid) 40 mg PO HS [facility] Last Admin: 12/04/18 22:11 Dose: 40 mg Fenofibrate (Tricor) 145 mg PO DAILY [facility] Last Admin: 12/05/18 09:55 Dose: 145 mg Dextrose (Dextrose 5% In Water 1000 Ml) 1,000 mls @ 0 mls/hr IV .Q0M PRN; Protocol PRN Reason: Hypoglycemia Protocol Sodium Chloride (Sodium Chloride 0.9%) 1,000 mls @ 150 mls/hr IV .Q6H40M [facility] Last Admin: 12/04/18 14:38 Dose: 150 mls/hr Insulin Detemir (Levemir) 14 unit SC HS [facility] Insulin Human Lispro (Humalog Low) 0 units SC [facility]; Protocol Last Admin: 12/05/18 13:40 Dose: Not Given Insulin Human Lispro (Humalog) 4 units SC AC [facility] Last Admin: 12/05/18 13:17 Dose: 4 units Metoclopramide HCl (Reglan) 10 mg IVP Q6H PRN PRN Reason: Nausea/Vomiting Last Admin: 12/05/18 08:44 Dose: 10 mg Morphine Sulfate (Morphine) 1 mg IVP Q4H PRN PRN Reason: Pain, moderate (4-7) Zolpidem Tartrate (Ambien) 5 mg PO ONCE PRN; Protocol PRN Reason: Insomnia Last Admin: 12/04/18 22:11 Dose: 5 mg - Labs Labs: 12/05/18 06:00 12/05/18 06:00 PT 12.1 SECONDS (9.4-12.5) 12/02/18 16:00 INR 1.09 12/02/18 16:00 APTT 33.9 Seconds (26.9-38.3) 12/02/18 16:00 Attending/Attestation - Attestation I have personally seen and examined this patient.: Yes I have fully participated in the care of the patient.: Yes I have reviewed all pertinent clinical information, including history, physical exam and plan: Yes Notes (Text): 12/05/18 13:59 43 year old male with past medical history of Hepatitis C s/p treatment, diabetes, chronic pancreatitis with pseudocysts, splenic vein thrombosis and hypertriglyceridemia who presented with complaint of abdominal pain secondary to acute on chronic pancreatitis secondary to hypertriglyceridemia. CT head reviewed as above. Continue with iv fluids, analgesics, antiemetics and tricor. Triglyceride is coming down; 554 today. Will repeat in AM. GI and endo crinology are following the patient. Will continue to advance the diet later this evening and taper his morphine as well. Patient will need close outpatient GI follow up. Mohit Lackey MD Hospitalist.
[2018-12-05] MEDS: Amylase/Lipase/Protease 5,000 Units ECC PO SCH ×2 (15:02→17:56)
[2018-12-05] MEDS: Sodium Chloride 0.9% 1,000 ML IV SCH ×2 (15:04)
[2018-12-05] MEDS: CREON 36000 UNIT PO SCH (15:04)
[2018-12-05] MEDS ORDERED: Insulin Detemir 100 units/ml Vial (Levemir) SC SCH ×2 (22:00)
--- NOTE | 2018-12-05 23:00 | PN ---
DATE: 12/05/2018 ENDOCRINOLOGY FOLLOWUP NOTE LOCATION: Room 576. SUBJECTIVE: This is a 43-year-old male with recent uncontrolled type 2 insulin-requiring diabetes, presenting here with diffuse abdominal pain and evaluated to have acute pancreatitis with concomitant marked hypertriglyceridemia and was initially placed on a liquid diet and advanced today at dinner time to a heart healthy consistent carb diet as ordered. His glycemic levels are fluctuating as expected especially with increased insulin resistance thereof. The latest glucose levels have ranged from 248 to 255 and 294 mg/dL. LABORATORY DATA: His chemistry showed a BUN of 4, sodium 136, potassium 4, chloride 104, CO2 of 26, glucose 274 and creatinine 0.5. His triglyceride levels are now 554 with an initial level of over 1500 on admission as noted. His cholesterol was 199 with an HDL of 18. ASSESSMENT: This is a 43-year-old male with uncontrolled and decompensated type 2 insulin-requiring diabetes with marked hyperglycemic accelerations and hyperosmolar state with concomitant chronic recurrent pancreatitis, presenting here with marked dyslipidemia specifically hypertriglyceridemia as noted. We have to exclude also any underlying hyperchylomicronemia syndrome as noted. PLAN OF MANAGEMENT: We will modify once again his basal and bolus insulin regimen as his diet now has been advanced from a liquid to a heart healthy diet as noted. We will increase his Humalog to 10 units t.i.d. before meals to start tomorrow morning at breakfast time as ordered. We will also titrate his basal insulin with Levemir to be given as 24 units subcu at bedtime daily to start tonight. We will modify the coverage scale to obviate hypoglycemia and detailed orders have been given. We will also add a low-fat low-cholesterol diet if not already ordered to his present dietary regimen. We will also recommend omega-3 fatty acids or fish oil to augment the elevated triglyceride levels as noted. We will obtain a lipoprotein electrophoresis or phenotype to ascertain whether we are dealing with a familial type of dyslipidemia whether hyperchylomicronemia and/or familial combined dyslipidemia. We will obtain serial chemistries and supplement accordingly as needed. We will also continue the IV hydration as given and obtain serial chemistries accordingly. Gaby Saavedra MD [facility] # [id number]
[2018-12-06] MEDS: Insulin Lispro (humaLOG) LOW Coverage SC SCH ×2 (07:42→11:45)
[2018-12-06] MEDS: Insulin Lispro 1 UNITS/0.01 ML SC SCH ×2 (08:03→12:09)
[2018-12-06 08:12] LABS: BASO # 0.04 K/mm3 (0.0-2.0); EOS # 0.1 (0.0-0.7); MONO # 0.2 (0.1-0.6)
[2018-12-06 08:23] LABS: ALBUMIN 3.8 g/dL (3.0-4.8); ALT/SGPT 15 U/L (7-56); AST/SGOT 29 U/L (17-59); BLOOD UREA NITROGEN 9 mg/dL (7-21); CALCIUM 9.3 mg/dL (8.4-10.5); GFR NON-AFRICAN AMERICAN > 60; HDL CHOLESTEROL 22 mg/dL (29-60)
[2018-12-06 08:33] LABS: LDL CHOLESTEROL 84 mg/dL (0-129)
[2018-12-06 08:52] VITALS: BP 123/68; PULSE 62; TEMP 98
[2018-12-06 09:13] LABS: BASO % 1.1 % (0.0-3.0); EOS % 3.5 % (1.5-5.0); HEMOGLOBIN 12.7 g/dL (14.0-18.0); LYMPH # 1.3 (1.2-3.4); MEAN CELL VOLUME 74.4 fl (80.0-105.0); MEAN CORPUSCULAR HGB CONC 34.9 g/dl (31.0-37.0); MEAN PLATELET VOLUME 9.6 fl (7.0-11.0); MONO % 5.9 % (1.0-6.0); RBC 4.89 10^6/uL (3.5-6.1); WHITE BLOOD COUNT 3.7 10^3/uL (4.5-11.0)
[2018-12-06] MEDS: Morphine 2 mg/ml ISec IVP PRN (09:20)
[2018-12-06] MEDS: Amylase/Lipase/Protease 5,000 Units ECC PO SCH (10:40)
--- NOTE | 2018-12-06 13:30 | PN ---
DATE: 12/06/2018 ENDO FOLLOWUP NOTE SUBJECTIVE: This is a 43-year-old male with recent uncontrolled type 2 with recent uncontrolled type 2 insulin-requiring diabetes presenting here with severe upper abdominal pain and evaluated to have acute recurrent pancreatitis and is now being followed closely for metabolic management. His glycemic levels are fluctuating, but much improved as noted overnight and glucose levels have ranged from 138-162 mg/dL. It was 238 at bedtime last night. LABORATORY DATA: His chemistry showed a BUN of 9, sodium 140, potassium 3.7, chloride 104, CO2 of 27, glucose 152 and creatinine 0.6. ASSESSMENT AND PLAN: So, at this time, we will continue the basal insulin Levemir given as 24 units subcu at bedtime daily as ordered. We will continue the prandial insulin given as Humalog at 10 units t.i.d. before meals as ordered. We will continue the low-dose correction scale using Humalog insulin to allow for dose equilibration. We will follow and advise accordingly. Gaby Saavedra MD
--- NOTE | 2018-12-06 14:12 | CP.PCM.DIS ---
<Joshua Barrios - Last Filed: 12/06/18 14:03> Provider - Provider Date of Admission: 12/02/18 19:46 Attending physician: Ayaz Gallo MD Consults: 12/04/18 08:47 Endocrinology Consult Routine Comment: Consulting Provider: Gaby Saavedra Consulting Physician: Gaby Saavedra Reason for Consult: uncontrolled triglycerides, sugars Time Spent in preparation of Discharge (in minutes): 35 Hospital Course - Lab Results Lab Results: Most Recent Lab Values WBC 3.7 10^3/uL (4.5-11.0) L 12/06/18 07:00 RBC 4.89 10^6/uL (3.5-6.1) 12/06/18 07:00 Hgb 12.7 g/dL (14.0-18.0) L 12/06/18 07:00 Hct 36.4 % (42.0-52.0) L 12/06/18 07:00 MCV 74.4 fl (80.0-105.0) L 12/06/18 07:00 MCH 26.0 pg (25.0-35.0) 12/06/18 07:00 MCHC 34.9 g/dl (31.0-37.0) 12/06/18 07:00 RDW 15.0 % (11.5-14.5) H 12/06/18 07:00 Plt Count 98 10^3/uL (120.0-450.0) L 12/06/18 07:00 MPV 9.6 fl (7.0-11.0) 12/06/18 07:00 Neut % (Auto) 54.5 % (50.0-68.0) 12/06/18 07:00 Lymph % (Auto) 35.0 % (22.0-35.0) 12/06/18 07:00 Williams % (Auto) 5.9 % (1.0-6.0) 12/06/18 07:00 Eos % (Auto) 3.5 % (1.5-5.0) 12/06/18 07:00 Baso % (Auto) 1.1 % (0.0-3.0) 12/06/18 07:00 Lymph # (Auto) 1.3 (1.2-3.4) 12/06/18 07:00 Williams # (Auto) 0.2 (0.1-0.6) 12/06/18 07:00 Eos # (Auto) 0.1 (0.0-0.7) 12/06/18 07:00 Baso # (Auto) 0.04 K/mm3 (0.0-2.0) 12/06/18 07:00 Absolute Neuts (auto) 2.02 (1.4-6.5) 12/06/18 07:00 PT 12.1 SECONDS (9.4-12.5) 12/02/18 16:00 INR 1.09 12/02/18 16:00 APTT 33.9 Seconds (26.9-38.3) 12/02/18 16:00 Sodium 140 mmol/L (132-148) 12/06/18 07:00 Potassium 3.7 mmol/L (3.6-5.0) 12/06/18 07:00 Chloride 104 mmol/L (98-107) 12/06/18 07:00 Carbon Dioxide 27 mmol/L (21-33) 12/06/18 07:00 Anion Gap 13 (10-20) 12/06/18 07:00 BUN 9 mg/dL (7-21) 12/06/18 07:00 Creatinine 0.6 mg/dl (0.8-1.5) L 12/06/18 07:00 Est GFR ( Amer) > 60 12/06/18 07:00 Est GFR (Non-Af Amer) > 60 12/06/18 07:00 POC Glucose (mg/dL) 138 mg/dL (65-110) H 12/06/18 11:33 Random Glucose 152 mg/dL (70-110) H 12/06/18 07:00 Hemoglobin A1c 13.5 % (4.2-6.5) H 12/03/18 05:00 Calcium 9.3 mg/dL (8.4-10.5) 12/06/18 07:00 Phosphorus 3.4 mg/dL (2.5-4.5) 12/03/18 07:00 Magnesium 1.6 mg/dL (1.7-2.2) L 12/03/18 07:00 Total Bilirubin 0.8 mg/dL (0.2-1.3) 12/06/18 07:00 AST 29 U/L (17-59) 12/06/18 07:00 ALT 15 U/L (7-56) 12/06/18 07:00 Alkaline Phosphatase 80 U/L (38-126) 12/06/18 07:00 Total Protein 7.5 g/dL (5.8-8.3) 12/06/18 07:00 Albumin 3.8 g/dL (3.0-4.8) 12/06/18 07:00 Globulin 3.7 gm/dL 12/06/18 07:00 Albumin/Globulin Ratio 1.0 (1.1-1.8) L 12/06/18 07:00 Triglycerides 501 mg/dL (35-160) H 12/06/18 07:00 Cholesterol 209 mg/dL (130-200) H 12/06/18 07:00 LDL Cholesterol Direct 84 mg/dL (0-129) 12/06/18 07:00 HDL Cholesterol 22 mg/dL (29-60) L 12/06/18 07:00 Lipase 137 U/L (23-300) 12/02/18 16:00 TSH 3rd Generation 1.02 mIU/mL (0.46-4.68) 12/03/18 07:00 - Constitutional Appears: Unkempt - Head Exam Head Exam: ATRAUMATIC, NORMAL INSPECTION - Eye Exam Eye Exam: EOMI Pupil Exam: PERRL - ENT Exam ENT Exam: Mucous Membranes Moist - Respiratory Exam Respiratory Exam: Clear to Ausculation Bilateral. absent: Accessory Muscle Use, Wheezes, Respiratory Distress - Cardiovascular Exam Cardiovascular Exam: REGULAR RHYTHM, +S1, +S2 - GI/Abdominal Exam GI & Abdominal Exam: Soft, Tenderness, Normal Bowel Sounds. absent: Guarding, Rigid Additional comments: minimal tenderness appreciated with palpation in the epigastric region - Extremities Exam Extremities Exam: Normal Inspection. absent: Calf Tenderness, Tenderness - Back Exam Back Exam: NORMAL INSPECTION - Neurological Exam Neurological Exam: Alert, CN II-XII Intact, Oriented x3 - Skin Skin Exam: Normal Color, Warm - Hospital Course Hospital Course: Upon admission, 43 yo M with PMH of Chronic Hep C (completed tx course ~1 yr ago), cirrhosis with gastric/splenic varices, chronic pancreatitis with pseudocysts, poorly controlled DMII, splenic vein thrombosis, chronic back pain, and HLD/HTG who presents with complaint of nausea and abdominal pain with minimal PO intake x4 days, and uncontrolled vomiting since today. Patient denies bilious/bloody emesis. Reports started emesis this AM after awaking and drinking one cup of tea. Reports only tolerating fluids for the last 4 days due to abdominal pain and nausea, but no emesis until today. Has been able to tolerate medications until today. Reports compliant with meds, including pancreatic enzymes. Denies recent new foods or abnormal foods, denies recent fatty foods. Denies recent changes in meds. During hospital course, patient noted to be afebrile with no WBC count but had triglyceride level of 1,500 and CTAP 12/02 shows mild swelling of the pancreatic head consistent with pancreatitis. Body and tail of pancreas are atrophic. Edema of the adjacent stomach with severe mural thickening. Multiple large gastric varices are seen. Patient was started on liquid diet and NS @150cc/hr with improvement in symptoms. Patient was continued on fenofibrate and pancreatic enzymes during hospital course. Gastroenterology was consulted and recommended advancing diet as tolerated and endocrinology was consulted for uncontrolled glucose and triglycerides. Patient was able to tolerate soft diet overnight and is comfortable with discharge today. All of his question were answered to satisfaction. He agreed to follow up with his varnish thinner at [facility] and with Dr Saavedra for endocrinology. He states he did not need refills for his medications and we provided scripts for his diabetes medications. Discharge Plan - Discharge Medications Prescriptions: Blood Sugar Diagnostic [Blood Glucose Test] 1 each [facility] 30 Days strip Blood-Glucose Meter [Blood Glucose Meter] 1 each [facility] #1 each Fenofibrate Nanocrystallized [Tricor] 145 mg PO DAILY #30 tablet Gemfibrozil [Lopid] 600 mg PO BID #60 tab Insulin Detemir [Levemir] 24 unit SC HS #30 unit Insulin Lispro [humALOG] 10 units SC AC #30 ml Lancets [Blood Lancets] 1 each [facility] 30 Days each Ptugx-0-Bijl Ethyl Esters 1 GM [Lovaza] 2 tab PO BID 30 Days #60 sgl Ondansetron [Zofran] 4 mg PO Q8H #10 tab Syringe and Needle,Insulin,1Ml [Insulin Syringe] 1 each [facility] 30 Days disp.syrin - Follow Up Plan Condition: FAIR Disposition: HOME/ ROUTINE Instructions: Pancreatitis Additional Instructions: - Follow up with your primary doctor within 3-5 days - Follow up with Dr. Saavedra, assistant analyst within 3-5 days - Check blood glucose before meals and before bed, please write down and bring with you to your doctors appointments - Administer Humalog before meals - Administer Levemir at night - Please take all other medications as prescribed - Stick to low fat diet - Recommend small, frequent meals - Proceed to ED if symptoms return Referrals: Gaby Saavedra MD [Medical Doctor] - <Ayaz Gallo - Last Filed: 12/06/18 17:50> Provider - Provider Date of Admission: 12/02/18 19:46 Attending physician: Ayaz Gallo MD Consults: 12/04/18 08:47 Endocrinology Consult Routine Comment: Consulting Provider: Gaby Saavedra Consulting Physician: Gaby Saavedra Reason for Consult: uncontrolled triglycerides, sugars Hospital Course - Lab Results Lab Results: Most Recent Lab Values WBC 3.7 10^3/uL (4.5-11.0) L 12/06/18 07:00 RBC 4.89 10^6/uL (3.5-6.1) 12/06/18 07:00 Hgb 12.7 g/dL (14.0-18.0) L 12/06/18 07:00 Hct 36.4 % (42.0-52.0) L 12/06/18 07:00 MCV 74.4 fl (80.0-105.0) L 12/06/18 07:00 MCH 26.0 pg (25.0-35.0) 12/06/18 07:00 MCHC 34.9 g/dl (31.0-37.0) 12/06/18 07:00 RDW 15.0 % (11.5-14.5) H 12/06/18 07:00 Plt Count 98 10^3/uL (120.0-450.0) L 12/06/18 07:00 MPV 9.6 fl (7.0-11.0) 12/06/18 07:00 Neut % (Auto) 54.5 % (50.0-68.0) 12/06/18 07:00 Lymph % (Auto) 35.0 % (22.0-35.0) 12/06/18 07:00 Williams % (Auto) 5.9 % (1.0-6.0) 12/06/18 07:00 Eos % (Auto) 3.5 % (1.5-5.0) 12/06/18 07:00 Baso % (Auto) 1.1 % (0.0-3.0) 12/06/18 07:00 Lymph # (Auto) 1.3 (1.2-3.4) 12/06/18 07:00 Williams # (Auto) 0.2 (0.1-0.6) 12/06/18 07:00 Eos # (Auto) 0.1 (0.0-0.7) 12/06/18 07:00 Baso # (Auto) 0.04 K/mm3 (0.0-2.0) 12/06/18 07:00 Absolute Neuts (auto) 2.02 (1.4-6.5) 12/06/18 07:00 PT 12.1 SECONDS (9.4-12.5) 12/02/18 16:00 INR 1.09 12/02/18 16:00 APTT 33.9 Seconds (26.9-38.3) 12/02/18 16:00 Sodium 140 mmol/L (132-148) 12/06/18 07:00 Potassium 3.7 mmol/L (3.6-5.0) 12/06/18 07:00 Chloride 104 mmol/L (98-107) 12/06/18 07:00 Carbon Dioxide 27 mmol/L (21-33) 12/06/18 07:00 Anion Gap 13 (10-20) 12/06/18 07:00 BUN 9 mg/dL (7-21) 12/06/18 07:00 Creatinine 0.6 mg/dl (0.8-1.5) L 12/06/18 07:00 Est GFR ( Amer) > 60 12/06/18 07:00 Est GFR (Non-Af Amer) > 60 12/06/18 07:00 POC Glucose (mg/dL) 138 mg/dL (65-110) H 12/06/18 11:33 Random Glucose 152 mg/dL (70-110) H 12/06/18 07:00 Hemoglobin A1c 13.5 % (4.2-6.5) H 12/03/18 05:00 Calcium 9.3 mg/dL (8.4-10.5) 12/06/18 07:00 Phosphorus 3.4 mg/dL (2.5-4.5) 12/03/18 07:00 Magnesium 1.6 mg/dL (1.7-2.2) L 12/03/18 07:00 Total Bilirubin 0.8 mg/dL (0.2-1.3) 12/06/18 07:00 AST 29 U/L (17-59) 12/06/18 07:00 ALT 15 U/L (7-56) 12/06/18 07:00 Alkaline Phosphatase 80 U/L (38-126) 12/06/18 07:00 Total Protein 7.5 g/dL (5.8-8.3) 12/06/18 07:00 Albumin 3.8 g/dL (3.0-4.8) 12/06/18 07:00 Globulin 3.7 gm/dL 12/06/18 07:00 Albumin/Globulin Ratio 1.0 (1.1-1.8) L 12/06/18 07:00 Triglycerides 501 mg/dL (35-160) H 12/06/18 07:00 Cholesterol 209 mg/dL (130-200) H 12/06/18 07:00 LDL Cholesterol Direct 84 mg/dL (0-129) 12/06/18 07:00 HDL Cholesterol 22 mg/dL (29-60) L 12/06/18 07:00 Lipase 137 U/L (23-300) 12/02/18 16:00 TSH 3rd Generation 1.02 mIU/mL (0.46-4.68) 12/03/18 07:00 Attending/Attestation - Attestation I have personally seen and examined this patient.: Yes I have fully participated in the care of the patient.: Yes I have reviewed all pertinent clinical information, including history, physical exam and plan: Yes Notes (Text): 12/06/18 17:48 Attending note; Patient seen and examined with resident. Patient is alert and awake. Abdominal pain is improved significantly. Tolerating low-fat and low-cholesterol diet. Denies any diarrhea. Denies any fevers, chills. Patient is a 43 year old male with past medical history of Hepatitis C s/p treatment, diabetes, chronic pancreatitis with pseudocysts, splenic vein thrombosis and hypertriglyceridemia who presented 1. Acute on chronic pancreatitis; treated with with iv fluids, analgesics, antiemetics and tricor. 2. Severe triglyceridemia; treated with TriCor. triglyceride is coming down; 501 today. GI and endocrinology evaluation appreciated. 3. Diabetes; Continue insulin. Patient is strongly advised to follow-up with [facility] hepatology with clinic for further care. Patient follows up with PMD Dr. Low Mcleod.
== END 2018-12-06 13:08 | disposition home or self-care (01) | DRG 204 ==
LOC: ED 15:12 → ERH 19:46 → 5RSO 22:47
PROVIDERS: ADMIT Hospitalist; ATTEND Internal Medicine
DX: K85.90 Acute pancreatitis without necrosis or infection, unspecified (principal); E86.0 Dehydration; K74.60 Unspecified cirrhosis of liver; E11.65 Type 2 diabetes mellitus with hyperglycemia; D69.6 Thrombocytopenia, unspecified; E78.1 Pure hyperglyceridemia; K86.1 Other chronic pancreatitis; I86.4 Gastric varices; N20.0 Calculus of kidney; I10 Essential (primary) hypertension; E78.5 Hyperlipidemia, unspecified; R63.4 Abnormal weight loss; Z68.1 Body mass index [BMI] 19.9 or less, adult; Z79.4 Long term (current) use of insulin; Z86.718 Personal history of other venous thrombosis and embolism; Z86.19 Personal history of other infectious and parasitic diseases; Z79.899 Other long term (current) drug therapy; Z87.891 Personal history of nicotine dependence

== ENCOUNTER 2019-01-24 11:50 | Inpatient (IN) | payer OTHER ==
[2019-01-24] MEDS ORDERED: Sodium Chloride 0.9% 1,000 ML IV STA ×2 (12:04→13:52)
--- NOTE | 2019-01-24 12:27 | ED PDOC ---
Arrival/HPI - General Chief Complaint: Abdominal Pain Historian: Patient - History of Present Illness Narrative History of Present Illness (Text): 01/24/19 12:31 Patient is a 43 year old male, with a past medical history of cirrhosis with gastric/splenic varices, chronic pancreatitis with pseudocysts, cholecystectomy, appendectomy, poorly controlled DMII, chronic back pain, and HLD, who presents to the emergency department complaining of RLQ and epigastric abdominal pain since 3 days. Patient notes associated vomiting, nausea, and chills. Patient ca nnot tolerate liquid PO. Patient informs of 1 bowel movement today with constipation. Patient informs current complaint is similar to chronic pancreatitis symptoms with last episode occurring 2 weeks ago. Patient informs taking tramadol for pain with no improvement. Patient appreciates extensive hos pital course for current complaints. Patient denies fevers, headache, dizziness, chest pain, shortness of breath, cough, diarrhea, bloody/dark stools, dysuria, hematuria, or any other complaint. PMD: Dr. Atwood Time/Duration: < week (3 days) Symptom Onset: Gradual Symptom Course: Unchanged Activities at Onset: Light Context: Home Past Medical History - Provider Review Nursing Documentation Reviewed: Yes - Past History Past History: No Previous - Infectious Disease Hx of Infectious Diseases: None - Tetanus Immunization Tetanus Immunization: Unknown - Cardiac Hx Hypertension: Yes - Pulmonary Hx Respiratory Disorders: No Hx Asthma: No Hx Bronchitis: No Hx Chronic Obstructive Pulmonary Disease (COPD): No Hx Emphysema: No Hx Pneumonia: No Hx Respiratory Aspiration: No Hx Respiratory Tract Infection: No Hx Sleep Apnea: No Hx Tuberculosis: No - Neurological Hx Neurological Disorder: No Hx Alzheimer's Disease: No HX Cerebrovascular Accident: No Hx Dementia: No Hx Dizziness: No Hx Meningitis: No Hx Migraine: No Hx Parkinson's Disease: No Hx Seizures: No Hx Transient Ischemic Attacks (TIA): No - HEENT Hx HEENT Disorder: No Hx Blind: No Hx Cataracts: No Hx Deafness: No Hx Difficulty Chewing: No Hx Epistaxis: No Hx Glaucoma: No Hx Macular Degeneration: No - Renal Hx Renal Disorder: No Hx Dialysis: No Hx Kidney Stones: No Hx Neurogenic Bladder: No Hx Pyelonephritis: No Hx Renal Cancer: No Hx Renal Failure: No - Endocrine/Metabolic Hx Endocrine Disorders: No Hx Adrenal Cancer: No Hx Diabetes Insipidus: No Hx Diabetes Mellitus Type 1: No Hx Diabetes Mellitus Type 2: Yes Hx Hyperthyroidism: No Hx Hypothyroidism: No Hx Systemic Lupus Erythematosus: No - Hematological/Oncological Hx Blood Disorders: No Hx AIDS: No Hx Anemia: No Hx Cancer: No Hx Chemotherapy: No Hx Cirrhosis: No Hx Hemophilia: No Hx Hepatitis A: No Hx Hepatitis B: No Hx Hepatitis C: Yes Hx Metastasis: No Hx Shingles: No Hx Sickle Cell Disease: No Hx Unexplained Bleeding: No - Integumentary Hx Dermatological Disorder: No Hx Basal Cell Carcinoma: No Hx Eczema: No Hx Melanoma: No Hx Psoriasis: No Hx Squamous Cell Carcinoma: No - Musculoskeletal/Rheumatological Hx Falls: No - Gastrointestinal Hx Gastrointestinal Disorders: No Hx Colostomy: No Hx Crohn's Disease: No Hx Gall Bladder Disease: Yes Hx Ileostomy: No Hx Liver Failure: No Hx Pancreatitis: No HX Swallowing Problems: No - Genitourinary/Gynecological Hx Genitourinary Disorders: No Hx Hematuria: No Hx Incontinence: No Hx Prostate Problems: No Hx Sexually Transmitted Diseases: No Hx Urinary Tract Infection: No - Psychiatric Hx Psychophysiologic Disorder: No Hx Anxiety: No Hx Bipolar Disorder: No Hx Depression: No Hx Emotional Abuse: No Hx Hallucinations: No Hx Panic Disorder: No Hx Post Traumatic Stress Disorder: No Hx Psychosis: No Hx Physical Abuse: No Hx Schizophrenia: No Hx Sexual Abuse: No Hx Substance Use: No - Surgical History Hx Amputation: No Hx Appendectomy: Yes Hx Cardiac Catheterization: No Hx Cholecystectomy: Yes Hx Coronary Stent: No Hx Gastric Bypass Surgery: No Hx Hysterectomy: No Hx Joint Replacement: No Hx Kidney Transplant: No Hx Liver Transplant: No Hx Mastectomy: No Hx Musculoskeletal Surgery: No Hx Open Heart Surgery: No Hx Orthopedic Surgery: No Hx Splenectomy: No Hx Valve Replacement: No - Anesthesia Hx Anesthesia: Yes Hx Anesthesia Reactions: No Hx Malignant Hyperthermia: No - Suicidal Assessment Feels Threatened In Home Enviroment: No Family/Social History - Physician Review Nursing Documentation Reviewed: Yes Family/Social History: Unknown Family HX Smoking Status: Former Smoker Hx Alcohol Use: No Hx Substance Use: No Hx Substance Use Treatment: No Allergies/Home Meds Allergies/Adverse Reactions: Allergies hair color dye Allergy (Uncoded 09/30/18 12:11) RASH Home Medications: Home Meds Medication Instructions Recorded Confirmed Lipase/Protease/Amylase [Creon Dr 2 tab PO TID 08/20/18 12/02/18 36,000 Units Capsule] Review of Systems - Physician Review All systems were reviewed & negative as marked: Yes - Review of Systems Constitutional: Other (chills, doesn't tolerate liquid PO). absent: Fevers Respiratory: absent: SOB, Cough Cardiovascular: absent: Chest Pain Gastrointestinal: Abdominal Pain (RLQ and epigastric), Constipation, Nausea, Vomiting. absent: Diarrhea, Hematochezia, Other (melena) Genitourinary Male: absent: Dysuria, Hematuria Neurological: absent: Headache, Dizziness Physical Exam Vital Signs Reviewed: Yes Vital Signs Temp Pulse Resp BP Pulse Ox 01/24/19 12:19 97.6 F 53 L 18 151/82 H 99 Temperature: Afebrile Blood Pressure: Normal Pulse: Bradycardic Respiratory Rate: Normal Appearance: Positive for: Well-Appearing, Non-Toxic, Comfortable Pain Distress: None Mental Status: Positive for: Alert and Oriented X 3 - Systems Exam Head: Present: Atraumatic, Normocephalic Pupils: Present: PERRL Extroacular Muscles: Present: EOMI Conjunctiva: Present: Normal Mouth: Present: Moist Mucous Membranes Neck: Present: Normal Range of Motion Respiratory/Chest: Present: Clear to Auscultation, Good Air Exchange. No: Respiratory Distress, Accessory Muscle Use, Wheezes, Rales, Rhonchi Cardiovascular: Present: Normal S1, S2, Bradycardic. No: Murmurs, Rub, Gallop Abdomen: Present: Tenderness (Epigastric and RLQ), Normal Bowel Sounds. No: Distention, Peritoneal Signs, Rebound, Guarding Back: Present: Normal Inspection Upper Extremity: Present: Normal Inspection. No: Cyanosis, Edema Lower Extremity: Present: Normal Inspection. No: Edema Neurological: Present: GCS=15, CN II-XII Intact, Speech Normal Skin: Present: Warm, Dry, Normal Color. No: Rashes Psychiatric: Present: Alert, Oriented x 3, Normal Insight, Normal Concentration Medical Decision Making ED Course and Treatment: 01/24/19 12:31 Impression: Patient is a 43 year old male with a history of chronic pancreatitis with pseudocysts, cholecystectomy, appendectomy, poorly controlled DMII, and HLD, who presents to the emergency department complaining of RLQ and epigastric abdominal pain since 3 days. Plan: -- CT A/P w/ IV Contrast -- Labs --morphine -- IV Fluids -- Zofran Inj -- Urinalysis -- Reassess and disposition Prior Visits: Notes and results from previous visits were reviewed. Patient was last seen in the emergency department on Progress Notes: 01/24/19 15:02 Labs reviewed with leukocytosis of 12 and normal lipase of 160. Patient noted to have persistent abdominal pain with persistent emesis. CT a/p reviewed which reveals mild pancreatic inflammation. Endorsed case with Dr. Lackey(hospitalist) who accepts patient onto hospitalist service. - Lab Interpretations Lab Results: 01/24/19 13:00 01/24/19 13:18 Lab Results 01/24/19 14:54: POC Glucose (mg/dL) 412 H* 01/24/19 13:18: Sodium 138, Chloride 98, Potassium 4.7, Carbon Dioxide 22, Anion Gap 23 H, BUN 16, Creatinine 0.7 L, Est GFR ( Amer) > 60, Est GFR (Non-Af Amer) > 60, Random Glucose 393 H* D, Calcium 9.6, Magnesium 1.7, Total Bilirubin 1.5 H, AST 21, ALT 21, Alkaline Phosphatase 95, Troponin I 0.01, Total Protein 8.3, Albumin 4.5, Globulin 3.7, Albumin/Globulin Ratio 1.2, Lipase 160 01/24/19 13:00: PT 12.6 H, INR 1.12, APTT 35.1 01/24/19 13:00: WBC 12.4 H D, RBC 5.73, Hgb 15.3 D, Hct 44.6, MCV 77.8 L D, MCH 26.7, MCHC 34.3, RDW 14.9 H, Plt Count 187, MPV 11.4 H, Neut % (Auto) 88.4 H, Lymph % (Auto) 9.5 L, [place] % (Auto) 1.8, Eos % (Auto) 0.1 L, Baso % (Auto) 0.2, Lymph # (Auto) 1.2, [place] # (Auto) 0.2, Eos # (Auto) 0.0, Baso # (Auto) 0.02, Absolute Neuts (auto) 10.94 H 01/24/19 01:10: pO2 35, VBG pH 7.30 L, VBG pCO2 47.0, VBG HCO3 23.1, VBG Total CO2 24.5, VBG O2 Sat (Calc) 69.0 H, VBG Base Excess -3.6 L, VBG Potassium 4.5, Sodium 136.0, Chloride 95.0 L, Glucose 407 H*, Lactate 3.0 H, FiO2 21.0, Crit Value Called To Rn alessia, Crit Value Called By Rt, Blood Gas Notified Time 1320, Venous Blood Potassium 4.5 I have reviewed the lab results: Yes - RAD Interpretation Narrative RAD Interpretations (Text): 01/24/19 15:18 CT A/P with IV Contrast shows: IMPRESSION: 1. Markedly abnormal pancreas including pancreatic head and body. Pseudocyst formation remains. It is difficult to differentiate these chronic findings from potential acute/necrotizing pancreatitis. This should be correlated lipase levels. 2. 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 3. Mild hepatic enlargement and hepatomegaly. Bile duct dilatation consistent with prior cholecystectomy. No visible obstructing lesions in the pancreatic duct although the distal duct is obscured by findings in the pancreas. 4. No visible right lower quadrant inflammatory abnormalities. 5. Stable calculus nonobstructing lower pole left kidney. Bufferer: Radiologist - EKG Interpretation EKG Interpretation (Text): 01/24/19 12:58 Reviewed EKG, shows: Sinus Bradycardia at [address] BPM. Incomplete RBBB. No ST abnormalities. No QT prolongation. Interpreted by ED Physician: Yes Type: 12 lead EKG - Medication Orders Current Medication Orders: Sodium Chloride (Sodium Chloride 0.9%) 1,000 mls @ 999 mls/hr IV .Q1H1M STA Stop: 01/24/19 13:04 Discontinued Medications Ondansetron HCl (Zofran Inj) 4 mg IVP STAT STA Stop: 01/24/19 12:04 - Scribe Statement The provider has reviewed the documentation as recorded by the Scribe Mehrdad Noyola All medical record entries made by the Scribe were at my direction and personally dictated by me. I have reviewed the chart and agree that the record accurately reflects my personal performance of the history, physical exam, medical decision making, and the department course for this patient. I have also personally directed, reviewed, and agree with the discharge instructions and disposition. Disposition/Present on Arrival - Present on Arrival Any Indicators Present on Arrival: Yes History of DVT/PE: No History of Uncontrolled Diabetes: Yes Urinary Catheter: No History of Decub. Ulcer: No History Surgical Site Infection Following: None - Disposition Have Diagnosis and Disposition been Completed?: Yes Diagnosis: Pancreatitis, chronic Disposition: HOSPITALIZED Disposition Time: 15:02 Patient Plan: Admission Patient Problems: Current Active Problems Problem Status Onset Chronic pancreatitis Acute Condition: GUARDED
[2019-01-24] MEDS ORDERED: Morphine 4 mg/ml ISec IVP STA ×2 (12:47→14:52)
[2019-01-24] MEDS ORDERED: Iohexol 350 MG/100 ML VIAL ONE (12:55)
[2019-01-24 13:17] LABS: BASO # 0.02 K/mm3 (0.0-2.0); BASO % 0.2 % (0.0-3.0); EOS % 0.1 % (1.5-5.0); HEMOGLOBIN 15.3 g/dL (14.0-18.0); LYMPH # 1.2 (1.2-3.4); LYMPH % 9.5 % (22.0-35.0); MEAN CELL VOLUME 77.8 fl (80.0-105.0); MEAN CORPUSCULAR HEMOGLOBIN 26.7 pg (25.0-35.0); MEAN CORPUSCULAR HGB CONC 34.3 g/dl (31.0-37.0); MEAN PLATELET VOLUME 11.4 fl (7.0-11.0); MONO # 0.2 (0.1-0.6); MONO % 1.8 % (1.0-6.0); RBC 5.73 10^6/uL (3.5-6.1); RED CELL DISTRIBUTION WIDTH 14.9 % (11.5-14.5); WHITE BLOOD COUNT 12.4 10^3/uL (4.5-11.0)
[2019-01-24 13:21] LABS: VENOUS BLOOD GAS BASE EXCESS -3.6 mmol/L (0.0-2.0); VENOUS BLOOD GAS PO2 35 mm/Hg (30-55)
[2019-01-24 13:35] LABS: INR 1.12; PARTIAL THROMBOPLASTIN TIME 35.1 Seconds (26.9-38.3); PROTHROMBIN TIME 12.6 SECONDS (9.4-12.5)
[2019-01-24] MEDS ORDERED: Insulin Regular 1 UNITS/0.01 ML ML SC STA (13:53)
[2019-01-24 14:03] LABS: ALB/GLOB RATIO 1.2 (1.1-1.8); ALBUMIN 4.5 g/dL (3.0-4.8); ALT/SGPT 21 U/L (7-56); AST/SGOT 21 U/L (17-59); BLOOD UREA NITROGEN 16 mg/dL (7-21); CALCIUM 9.6 mg/dL (8.4-10.5); GFR NON-AFRICAN AMERICAN > 60; LIPASE 160 U/L (23-300)
[2019-01-24 14:20] LABS: TROPONIN I 0.01 ng/mL
--- NOTE | 2019-01-24 15:22 | CT ---
Date of service: 01/24/2019 PROCEDURE: CT Abdomen and Pelvis with contrast HISTORY: Right lower quadrant abdominal pain. Relevant medical history: History of pancreatitis. COMPARISON: 08/21/2018, 09/30/2018 and 12/02/2018. Serial CT scans of the abdomen and pelvis. TECHNIQUE: Intravenous contrast dose: 100 cc Omnipaque 350. Radiation dose: Total exam DLP = 288.85. mGy-cm. This CT exam was performed using one or more of the following dose reduction techniques: Automated exposure control, adjustment of the mA and/or kV according to patient size, and/or use of iterative reconstruction technique. FINDINGS: LOWER THORAX: Unremarkable. LIVER: Hepatic steatosis. No focal masses. Mild intrahepatic bile duct dilatation consistent with prior cholecystectomy. GALLBLADDER AND BILE DUCTS: Status post cholecystectomy. No abnormality is seen in the gallbladder fossa. PANCREAS: Complex masses involving the body and head of the pancreas. Similar findings identified on prior CT scans. The mass is inseparable from the stomach. 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 SPLEEN: Normal spleen. Innumerable varicosities left upper quadrant related to splenic vein thrombosis. Similar finding seen previously. ADRENALS: Unremarkable. No mass. KIDNEYS AND URETERS: Unremarkable. No hydronephrosis. No solid mass. In incidental nonobstructing calculus 3 mm lower pole left kidney. VASCULATURE: Unremarkable. No aortic aneurysm. No atherosclerotic calcification or mural plaque present. BOWEL: Unremarkable. No obstruction. No gross mural thickening. APPENDIX: Partially visualized appendix. No abnormalities to suggest acute appendicitis. No right lower quadrant inflammatory processes identified. PERITONEUM: Unremarkable. No free fluid. No free air. LYMPH NODES: Unremarkable. No enlarged lymph nodes. BLADDER: Unremarkable. REPRODUCTIVE: Unremarkable. BONES: No acute fracture. OTHER FINDINGS: None. IMPRESSION: 1. Markedly abnormal pancreas including pancreatic head and body. Pseudocyst formation remains. It is difficult to differentiate these chronic findings from potential acute/necrotizing pancreatitis. This should be correlated lipase levels. 2. 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 3. Mild hepatic enlargement and hepatomegaly. Bile duct dilatation consistent with prior cholecystectomy. No visible obstructing lesions in the pancreatic duct although the distal duct is obscured by findings in the pancreas. 4. No visible right lower quadrant inflammatory abnormalities. 5. Stable calculus nonobstructing lower pole left kidney.
[2019-01-24] MEDS ORDERED: Dextrose 50% SYRINGE Inj (50 ml) IV PRN (16:15)
[2019-01-24] MEDS ORDERED: Morphine 4 mg/ml ISec IVP PRN (16:25)
[2019-01-24] MEDS ORDERED: Insulin Lispro (humaLOG) LOW Coverage SC SCH (16:30)
[2019-01-24 16:36] LABS: HDL CHOLESTEROL 22 mg/dL (29-60)
[2019-01-24 16:46] LABS: LDL CHOLESTEROL 48 mg/dL (0-129)
--- NOTE | 2019-01-24 16:54 | CP.PCM.HP ---
<RikiJavier - Last Filed: 01/24/19 16:59> History of Present Illness - History of Present Illness History of Present Illness: Javier Lyn DO PGY-1 H&P Note for Dr. Maurisio Rogers: abdominal pain, nausea, vomiting x3 days 43 y/o male with PMH of Hep C (treated), cirrhosis with gastric/splenic varices, chronic pancreatitis with pseudocysts, uncontrolled DM2, splenic vein thrombosis, chronic back pain, HLD presents to the ED with abdominal pain, nausea, vomiting x3 days. Pain started in periumbilical /epigastric area, sharp, progressive, 10/10 at most, constant, mildly relieved with ultram, worsened with movement or oral intake. Pain is associated with NBNB intactable vomiting, daniel sea. Patient denies associated fever, chills, diarrhea, hemoptysis, hematemesis, hematochezia, melena, recent sickness/unusual food intake. Patient underwent multiple surgical removal of pancreatic pseudocysts in [place]. Patient got multiple admissions for similar symptoms in the past. Last admission in [facility] on 12/02/18. Patient denies CP, SOB, palpitations, cough, leg swelling, urinary symptoms, muscle weakness, sensory loss. He reports compliance with his medications. 12 points ROS reviewed with pertinent positives as above. Past Medical History: As above Past Surgical History: Appendectomy (ruptured appendix), Cholecystectomy, Pancreatic Pseudocyst resection Family History: Mother-Bone Cancer, Father- from [place] at 53 Social History: Prior tobacco (quit cigars 7 months ago, smoked 3 cigars daily for 4 years), denies EtOH/Illicits/IVDA Allergy: NKDA Primary Care Physician: Dr. Kelsey GI Physician: Dr. Valentin [facility]: [facility] Present on Admission - Present on Admission Any Indicators Present on Admission: No Past Patient History - Infectious Disease Hx of Infectious Diseases: None - Tetanus Immunizations Tetanus Immunization: Unknown - Past Medical History & Family History Past Medical History?: Yes - Past Social History Smoking Status: Former Smoker - CARDIAC Hx Hypertension: Yes - PULMONARY Hx Respiratory Disorders: No Hx Asthma: No Hx Bronchitis: No Hx Chronic Obstructive Pulmonary Disease (COPD): No Hx Emphysema: No Hx Pneumonia: No Hx Respiratory Aspiration: No Hx Respiratory Tract Infection: No Hx Sleep Apnea: No Hx Tuberculosis: No - NEUROLOGICAL Hx Neurological Disorder: No Hx Alzheimer's Disease: No HX Cerebrovascular Accident: No Hx Dementia: No Hx Dizziness: No Hx Meningitis: No Hx Migraine: No Hx Parkinson's Disease: No Hx Seizures: No Hx Transient Ischemic Attacks (TIA): No - HEENT Hx HEENT Problems: No Hx Blind: No Hx Cataracts: No Hx Deafness: No Hx Difficulty Chewing: No Hx Epistaxis: No Hx Glaucoma: No Hx Macular Degeneration: No - RENAL Hx Chronic Kidney Disease: No Hx Dialysis: No Hx Kidney Stones: No Hx Neurogenic Bladder: No Hx Pyelonephritis: No Hx Renal (Kidney) Cancer: No Hx Renal Failure: No - ENDOCRINE/METABOLIC Hx Endocrine Disorders: No Hx Adrenal Cancer: No Hx Diabetes Insipidus: No Hx Diabetes Mellitus Type 1: No Hx Diabetes Mellitus Type 2: Yes Hx Hyperthyroidism: No Hx Hypothyroidism: No Hx Systemic Lupus Erythematosus: No - HEMATOLOGICAL/ONCOLOGICAL Hx Blood Disorders: No Hx AIDS: No Hx Anemia: No Hx Cancer: No Hx Chemotherapy: No Hx Cirrhosis: No Hx Hemophilia: No Hx Hepatitis A: No Hx Hepatitis B: No Hx Hepatitis C: Yes Hx Metastesis: No Hx Shingles: No Hx Sickle Cell Disease: No Hx Unexplained Bleeding: No - INTEGUMENTARY Hx Dermatological Problems: No Hx Basil Cell: No Hx Eczema: No Hx Melanoma: No Hx Psoriasis: No Hx Squamous Cell: No - MUSCULOSKELETAL/RHEUMATOLOGICAL Hx Falls: No - GASTROINTESTINAL Hx Gastrointestinal Disorders: No Hx Colostomy: No Hx Crohn's Disease: No Hx Gall Bladder Disease: Yes Hx Ileostomy: No Hx Liver Failure: No Hx Pancreatitis: No HX Swallowing Problems: No - GENITOURINARY/GYNECOLOGICAL Hx Genitourinary Disorders: No Hx Hematuria: No Hx Incontinence: No Hx Prostate Problems: No Hx Sexually Transmitted Disorders: No Hx Urinary Tract Infection: No - PSYCHIATRIC Hx Psychophysiologic Disorder: No Hx Anxiety: No Hx Bipolar Disorder: No Hx Depression: No Hx Emotional Abuse: No Hx Hallucinations: No Hx Panic Symptoms: No Hx Post Traumatic Stress Disorder: No Hx Psychosis: No Hx Physical Abuse: No Hx Schizophrenia: No Hx Sexual Abuse: No Hx Substance Use: No - SURGICAL HISTORY Hx Amputation: No Hx Appendectomy: Yes Hx Cardiac Catheterization: No Hx Cholecystectomy: Yes Hx Coronary Stent: No Hx Gastric Bypass Surgery: No Hx Hysterectomy: No Hx Joint Replacement: No Hx Kidney Transplant: No Hx Liver Transplant: No Hx Mastectomy: No Hx Musculoskeletal Surgery: No Hx Open Heart Surgery: No Hx Orthopedic Surgery: No Hx Splenectomy: No Hx Valve Replacement: No - ANESTHESIA Hx Anesthesia: Yes Hx Anesthesia Reactions: No Hx Malignant Hyperthermia: No Meds Allergies/Adverse Reactions: Allergies Allergy/AdvReac Type Severity Reaction Status Date / Time hair color dye Allergy RASH Uncoded 09/30/18 12:11 Physical Exam - Constitutional Appears: Well, Non-toxic - Head Exam Head Exam: ATRAUMATIC, NORMAL INSPECTION, NORMOCEPHALIC - Eye Exam Eye Exam: EOMI, Normal appearance, PERRL. absent: Scleral icterus Pupil Exam: NORMAL ACCOMODATION, PERRL - ENT Exam ENT Exam: Mucous Membranes Dry - Neck Exam Neck exam: Positive for: Normal Inspection - Respiratory Exam Respiratory Exam: Clear to Auscultation Bilateral, NORMAL BREATHING PATTERN. absent: Rales, Rhonchi, Wheezes - Cardiovascular Exam Cardiovascular Exam: REGULAR RHYTHM, +S1, +S2. absent: Gallop, RRR, Rubs - GI/Abdominal Exam GI & Abdominal Exam: Hypoactive Bowel Sounds, Soft, Tenderness (epigastric, periumbilical). absent: Hernia, Mass, Organomegaly, Rigid - Extremities Exam Extremities exam: Positive for: normal capillary refill, normal inspection, pedal pulses present. Negative for: tenderness - Back Exam Back exam: NORMAL INSPECTION. absent: CVA tenderness (L), CVA tenderness (R), rash noted - Psychiatric Exam Psychiatric exam: Normal Affect, Normal Mood - Skin Skin Exam: Dry, Intact, Normal Color, Warm Results - Vital Signs Recent Vital Signs: Last Vital Signs Temp 97.6 F 01/24/19 12:19 Pulse 53 L 01/24/19 12:19 Resp 18 01/24/19 12:19 BP 151/82 H 01/24/19 12:19 Pulse Ox 99 01/24/19 12:19 - Labs Result Diagrams: 01/24/19 13:00 01/24/19 13:18 Labs: Laboratory Results - last 24 hr 01/24/19 01/24/19 01/24/19 13:00 13:00 13:10 WBC 12.4 H D RBC 5.73 Hgb 15.3 D Hct 44.6 MCV 77.8 L D MCH 26.7 MCHC 34.3 RDW 14.9 H Plt Count 187 MPV 11.4 H Neut % (Auto) 88.4 H Lymph % (Auto) 9.5 L [place] % (Auto) 1.8 Eos % (Auto) 0.1 L Baso % (Auto) 0.2 Lymph # (Auto) 1.2 [place] # (Auto) 0.2 Eos # (Auto) 0.0 Baso # (Auto) 0.02 Absolute Neuts (auto) 10.94 H PT 12.6 H INR 1.12 APTT 35.1 pO2 35 VBG pH 7.30 L VBG pCO2 47.0 VBG HCO3 23.1 VBG Total CO2 24.5 VBG O2 Sat (Calc) 69.0 H VBG Base Excess -3.6 L VBG Potassium 4.5 Sodium 136.0 Chloride 95.0 L Glucose 407 H* Lactate 3.0 H FiO2 21.0 Crit Value Called To Nini aggarwal Crit Value Called By Rt Blood Gas Notified Time 1320 Potassium Carbon Dioxide Anion Gap BUN Creatinine Est GFR ( Amer) Est GFR (Non-Af Amer) POC Glucose (mg/dL) Random Glucose Calcium Magnesium Total Bilirubin AST ALT Alkaline Phosphatase Troponin I Total Protein Albumin Globulin Albumin/Globulin Ratio Triglycerides Cholesterol LDL Cholesterol Direct HDL Cholesterol Lipase Venous Blood Potassium 4.5 01/24/19 01/24/19 01/24/19 13:18 13:18 14:54 WBC RBC Hgb Hct MCV MCH MCHC RDW Plt Count MPV Neut % (Auto) Lymph % (Auto) [place] % (Auto) Eos % (Auto) Baso % (Auto) Lymph # (Auto) [place] # (Auto) Eos # (Auto) Baso # (Auto) Absolute Neuts (auto) PT INR APTT pO2 VBG pH VBG pCO2 VBG HCO3 VBG Total CO2 VBG O2 Sat (Calc) VBG Base Excess VBG Potassium Sodium 138 Chloride 98 Glucose Lactate FiO2 Crit Value Called To Crit Value Called By Blood Gas Notified Time Potassium 4.7 Carbon Dioxide 22 Anion Gap 23 H BUN 16 Creatinine 0.7 L Est GFR ( Amer) > 60 Est GFR (Non-Af Amer) > 60 POC Glucose (mg/dL) 412 H* Random Glucose 393 H* D Calcium 9.6 Magnesium 1.7 Total Bilirubin 1.5 H AST 21 ALT 21 Alkaline Phosphatase 95 Troponin I 0.01 Total Protein 8.3 Albumin 4.5 Globulin 3.7 Albumin/Globulin Ratio 1.2 Triglycerides 823 H Cholesterol 240 H LDL Cholesterol Direct 48 HDL Cholesterol 22 L Lipase 160 Venous Blood Potassium 01/24/19 16:07 WBC RBC Hgb Hct MCV MCH MCHC RDW Plt Count MPV Neut % (Auto) Lymph % (Auto) [place] % (Auto) Eos % (Auto) Baso % (Auto) Lymph # (Auto) [place] # (Auto) Eos # (Auto) Baso # (Auto) Absolute Neuts (auto) PT INR APTT pO2 VBG pH VBG pCO2 VBG HCO3 VBG Total CO2 VBG O2 Sat (Calc) VBG Base Excess VBG Potassium Sodium Chloride Glucose Lactate FiO2 Crit Value Called To Crit Value Called By Blood Gas Notified Time Potassium Carbon Dioxide Anion Gap BUN Creatinine Est GFR ( Amer) Est GFR (Non-Af Amer) POC Glucose (mg/dL) 334 H Random Glucose Calcium Magnesium Total Bilirubin AST ALT Alkaline Phosphatase Troponin I Total Protein Albumin Globulin Albumin/Globulin Ratio Triglycerides Cholesterol LDL Cholesterol Direct HDL Cholesterol Lipase Venous Blood Potassium Assessment & Plan - Assessment and Plan (Free Text) Assessment: 43 y/o male with PMH of Hep C (treated), cirrhosis with gastric/splenic varices, chronic pancreatitis with pseudocysts, uncontrolled DM2, splenic vein thrombosis, chronic back pain, HLD presents to the ED with abdominal pain, nausea, vomiting x3 days. Patient admitted for acute on chronic pancreatitis Plan: Abdominal pain/nausea/vomiting: -likely due to acute on chronic pancreatitis vs colitis -mild leukocytosis, afebrile -CT A/P: pancreatic pseudocyst. mild pancreatic inflammation -pain control: morphine 2 mg q4 prn -NPO -IVF, NS@150 cc/hr -zofran prn -VB.3/47/35 lactate of 3 -AST/ALT/ALP/Lipase 21/21/95/160 -ducolax ND prn for constipation (on ultram) -GI consulted Dr Renteria Uncontrolled/complicated DM2: -f/u HgA1c -ISS-low -continue home neurontin -Endo consulted, Dr Saavedra HTN: -EKG: bradycardia@53, Incomplete RBBB. No ST-T changes. No QT prolongation -continue home lisinopril HLD: -lipid profile -hold lipitor, patient NPO h/o Hepatitis C and liver cirrhosis: -patient received treatment over 1 year ago -LFT wnl PPX: DVT: SCD GI: protonix NPO Case reviewed and plan discussed with attending Dr Maurisio Lyn, DO <Maria Luisa Forde R - Last Filed: 01/24/19 17:52> Results - Vital Signs Recent Vital Signs: Last Vital Signs Temp 97.6 F 01/24/19 12:19 Pulse 72 01/24/19 17:00 Resp 18 01/24/19 17:00 BP 156/92 H 01/24/19 17:00 Pulse Ox 97 01/24/19 17:00 - Labs Result Diagrams: 01/24/19 13:00 01/24/19 13:18 Labs: Laboratory Results - last 24 hr 01/24/19 01/24/19 01/24/19 13:00 13:00 13:10 WBC 12.4 H D RBC 5.73 Hgb 15.3 D Hct 44.6 MCV 77.8 L D MCH 26.7 MCHC 34.3 RDW 14.9 H Plt Count 187 MPV 11.4 H Neut % (Auto) 88.4 H Lymph % (Auto) 9.5 L [place] % (Auto) 1.8 Eos % (Auto) 0.1 L Baso % (Auto) 0.2 Lymph # (Auto) 1.2 [place] # (Auto) 0.2 Eos # (Auto) 0.0 Baso # (Auto) 0.02 Absolute Neuts (auto) 10.94 H PT 12.6 H INR 1.12 APTT 35.1 pO2 35 VBG pH 7.30 L VBG pCO2 47.0 VBG HCO3 23.1 VBG Total CO2 24.5 VBG O2 Sat (Calc) 69.0 H VBG Base Excess -3.6 L VBG Potassium 4.5 Sodium 136.0 Chloride 95.0 L Glucose 407 H* Lactate 3.0 H FiO2 21.0 Crit Value Called To Nini aggarwal Crit Value Called By Rt Blood Gas Notified Time 1320 Potassium Carbon Dioxide Anion Gap BUN Creatinine Est GFR ( Amer) Est GFR (Non-Af Amer) POC Glucose (mg/dL) Random Glucose Calcium Magnesium Total Bilirubin AST ALT Alkaline Phosphatase Troponin I Total Protein Albumin Globulin Albumin/Globulin Ratio Triglycerides Cholesterol LDL Cholesterol Direct HDL Cholesterol Lipase Venous Blood Potassium 4.5 01/24/19 01/24/19 01/24/19 13:18 13:18 14:54 WBC RBC Hgb Hct MCV MCH MCHC RDW Plt Count MPV Neut % (Auto) Lymph % (Auto) [place] % (Auto) Eos % (Auto) Baso % (Auto) Lymph # (Auto) [place] # (Auto) Eos # (Auto) Baso # (Auto) Absolute Neuts (auto) PT INR APTT pO2 VBG pH VBG pCO2 VBG HCO3 VBG Total CO2 VBG O2 Sat (Calc) VBG Base Excess VBG Potassium Sodium 138 Chloride 98 Glucose Lactate FiO2 Crit Value Called To Crit Value Called By Blood Gas Notified Time Potassium 4.7 Carbon Dioxide 22 Anion Gap 23 H BUN 16 Creatinine 0.7 L Est GFR ( Amer) > 60 Est GFR (Non-Af Amer) > 60 POC Glucose (mg/dL) 412 H* Random Glucose 393 H* D Calcium 9.6 Magnesium 1.7 Total Bilirubin 1.5 H AST 21 ALT 21 Alkaline Phosphatase 95 Troponin I 0.01 Total Protein 8.3 Albumin 4.5 Globulin 3.7 Albumin/Globulin Ratio 1.2 Triglycerides 823 H Cholesterol 240 H LDL Cholesterol Direct 48 HDL Cholesterol 22 L Lipase 160 Venous Blood Potassium 01/24/19 01/24/19 16:07 17:13 WBC RBC Hgb Hct MCV MCH MCHC RDW Plt Count MPV Neut % (Auto) Lymph % (Auto) [place] % (Auto) Eos % (Auto) Baso % (Auto) Lymph # (Auto) [place] # (Auto) Eos # (Auto) Baso # (Auto) Absolute Neuts (auto) PT INR APTT pO2 109 H VBG pH 7.28 L VBG pCO2 49.0 VBG HCO3 23.0 VBG Total CO2 24.5 VBG O2 Sat (Calc) 98.3 H VBG Base Excess -4.1 L VBG Potassium 4.3 Sodium 139.0 Chloride 103.0 Glucose 314 H Lactate 2.9 H FiO2 21.0 Crit Value Called To Austennnjuancarlos bullard Crit Value Called By [facility] Blood Gas Notified Time 1730 Potassium Carbon Dioxide Anion Gap BUN Creatinine Est GFR ( Amer) Est GFR (Non-Af Amer) POC Glucose (mg/dL) 334 H Random Glucose Calcium Magnesium Total Bilirubin AST ALT Alkaline Phosphatase Troponin I Total Protein Albumin Globulin Albumin/Globulin Ratio Triglycerides Cholesterol LDL Cholesterol Direct HDL Cholesterol Lipase Venous Blood Potassium 4.3 Attending/Attestation - Attestation I have personally seen and examined this patient.: Yes I have fully participated in the care of the patient.: Yes I have reviewed all pertinent clinical information: Yes Notes (Text): Patient seen and examined by me with resident at approximately 4:15PM on 01/24/19 in the emergency room. Case including HPI, physical exam, and assessment and plan discussed with resident. Agree with above with following additions/corrections. Patient is a 43-year-old male with past medical history significant for chronic hepatitis C status post treatment, cirrhosis with gastric and splenic varices, chronic pancreatitis with pseudocysts, poorly controlled insulin-dependent type 2 diabetes, splenic vein thrombosis, chronic back pain, and hypertriglyceridemia that presented to the emergency room with nausea, vomiting, and abdominal pain. Patient states that the abdominal pain started approximately 3 days ago. Patient states that he has not been eating over the past 3 days and has just been drinking water. She states that the pain is mostly in the right lower abdominal area but does radiate to his right side and back as well as the left side. The pain is "stabbing" in nature. Patient states he's tried tramadol home for pain with no relief. States after having tea he started to then have nausea and vomiting which started around 4 AM today. He states he threw approximately 35 times from 4 AM to coming into the emergency room and 5 times since being in the emergency room. He states the vomitus is "yellow" in nature here but was "brown" at home. Patient states that he has also not taken his insulin 3 today secondary to not being able to eat. Patient states he is compliant with his medications at home. He states he has not seen his reproduction technician in approximately 6 months. Patient denies any chest pain or shortness of breath. No fevers or chills. No headaches or dizziness. Patient states he does have some burning with urination but no pain. Patient states he always has constipation and had a "hard" bowel movement today. 12 point review of systems reviewed by me. Please see above HPI. All other systems negative. Family history: Mother is alive and has bone cancer. Father and had diabetes and a heart attack. Physical exam: General: Awake and alert lying in bed in no acute distress. HEENT: Normocephalic, atraumatic. Extraocular muscles intact. Pupils equal and reactive, no scleral icterus. Oropharynx is pink. Positive dry mucous membranes No pharyngeal erythema or exudate appreciated. Neck is supple. Cardiovascular: Regular rhythm. Normal S1 and S2. No murmurs, rubs, or gallops appreciated Pulmonary: Normal respiratory effort. No rhonci, rales, or wheezing appreciated. Gastrointestinal: Soft, nondistended. Positive generalized tenderness, more prominent right mid and lower quadrants. Positive bowel sounds all 4 quadrants. No guarding. Musculoskeletal: Moves all extremities. No calf tenderness. No edema appreciated. Central nervous system: AAO x3. CN2-12 grossly intact. Dermatologic: Skin warm and dry. Assessment and plan: Patient is a 43-year-old male with past medical history significant for chronic hepatitis C status post treatment, cirrhosis with gastric and splenic varices, chronic pancreatitis with pseudocysts, poorly controlled insulin-dependent type 2 diabetes, splenic vein thrombosis, chronic back pain, and hypertriglyceridemia that presented to the emergency room with nausea, vomiting, and abdominal pain. 1. Abdominal pain likely secondary to acute on chronic pancreatitis with nausea and vomiting. NPO. IV fluids. Zofran prn. Pain management. GI consulted, pending recommendations. CT abd/pelvis per radiologist showed acutely abnormal pancreas included pancreatic head and body, pseudocyst formation remains, difficult to differentiate chronic findings from potential acute/necrotizing pancreatitis; postoperative findings chest marsupialization of pancreas/stomach; mild hepatic enlargement and no hepatomegaly, bowel duct dilatation consistent with prior cholecystectomy, no visible structural lesions in the pancreatic duct, no visible right lower quadrant inflammatory abnormalities, stable calculus nonobstructing lower pole left kidney. 2. Leukocytosis. May be reactive. Follow up repeat labs in a.m. 3. Hypertriglyceridemia. Triglycerides 823. Endocrinology was consulted, pending recommendations. 4. Insulin-dependent type 2 diabetes with hyperglycemia. Endocrinology was consulted, recommendations appreciated. Placed on insulin sliding scale. Started on Levemir 12 units subcutaneous every 12 hours. Monitor Accu-Cheks. 5. Burning with urination. Pending urinalysis. Case was discussed in detail with the patient regarding current diagnosis, study results, and treatment plan. All questions answered.
[2019-01-24] MEDS: Sodium Chloride 0.9% 100 ML IV SCH (16:59)
[2019-01-24 17:33] LABS: VENOUS BLOOD GAS BASE EXCESS -4.1 mmol/L (0.0-2.0); VENOUS BLOOD GAS PO2 109 mm/Hg (30-55); VENOUS BLOOD PH 7.28 (7.32-7.43)
--- NOTE | 2019-01-24 18:02 | CARD ---
APPROVED REPORT Date of service: 01/24/2019 EKG Measurement Heart [id number] <Conclusion> Sinus bradycardia with sinus arrhythmia Left axis deviation Abnormal ECG
[2019-01-24] MEDS: Morphine 2 mg/ml ISec IVP PRN ×2 (18:14→21:44)
[2019-01-24 18:38] VITALS: BMI 21.7
[2019-01-24] MEDS: Insulin Lispro (humaLOG) LOW Coverage SC SCH (21:23)
[2019-01-24] MEDS: Insulin Detemir 100 units/ml Vial (Levemir) SC SCH (21:40)
[2019-01-25] MEDS: Morphine 2 mg/ml ISec IVP PRN ×4 (05:36→21:57)
[2019-01-25 06:49] LABS: URINE BILIRUBIN NEGATIVE (NEGATIVE); URINE BLOOD NEGATIVE (NEGATIVE); URINE GLUCOSE (UA) >=1000 mg/dL (NEGATIVE); URINE LEUKOCYTE ESTERASE NEGATIVE Leu/uL (NEGATIVE); URINE PROTEIN NEGATIVE mg/dL (<30 mg/dL); URINE UROBILINOGEN 0.2 E.U./dL (<1 E.U./dL)
[2019-01-25 06:50] LABS: URINE APPEARANCE CLEAR (CLEAR); URINE COLOR YELLOW (YELLOW)
--- NOTE | 2019-01-25 06:57 | CP.PCM.PN ---
<Javier Lyn - Last Filed: 01/25/19 15:09> Subjective - Date & Time of Evaluation Date of Evaluation: 01/25/19 Time of Evaluation: 05:50 - Subjective Subjective: Javier Lyn DO PGY1 Hospitalist Progress Note for Dr Forde Patient seen and examined at bedside. He has intractable hiccups through the night associated with abdominal pain in epigastric/sancho-umbilical area, nausea but not vomiting. No BM yet. Denies fever, chills, CP, palpitations, cough Objective - Vital Signs/Intake and Output Vital Signs (last 24 hours): Temp Pulse Resp BP Pulse Ox 98 F 93 H 20 126/85 99 01/24/19 22:42 01/24/19 22:42 01/24/19 22:42 01/24/19 22:42 01/24/19 22:42 Intake and Output: 01/24/19 01/25/19 18:59 06:59 Intake Total 1400 Output Total 750 Balance 650 - Medications Medications: Current Medications Dextrose (Dextrose 50% Inj) 0 ml IV STAT PRN; Protocol PRN Reason: Hypoglycemia Protocol Dextrose (Dextrose 5% In Water 1000 Ml) 1,000 mls @ 0 mls/hr IV .Q0M PRN; Protocol PRN Reason: Hypoglycemia Protocol Sodium Chloride (Sodium Chloride 0.9%) 100 mls @ 150 mls/hr IV .Q40M [facility] Last Admin: 01/24/19 16:59 Dose: 150 mls/hr Insulin Detemir (Levemir) 12 unit SC Q12H [facility] Last Admin: 01/24/19 21:40 Dose: 12 units Insulin Human Lispro (Humalog Low) 0 units SC ACHS DO; Protocol Last Admin: 01/24/19 21:23 Dose: Not Given Morphine Sulfate (Morphine) 2 mg IVP Q4H PRN PRN Reason: Pain, severe (8-10) Last Admin: 01/25/19 05:36 Dose: 2 mg Ondansetron HCl (Zofran Inj) 4 mg IVP Q6H PRN PRN Reason: Nausea/Vomiting Last Admin: 01/25/19 05:36 Dose: 4 mg Pantoprazole Sodium (Protonix Inj) 40 mg IVP DAILY [facility] Last Admin: 01/25/19 05:43 Dose: 40 mg Zolpidem Tartrate (Ambien) 5 mg PO HS PRN; Protocol PRN Reason: Insomnia Last Admin: 01/24/19 22:22 Dose: 5 mg - Labs Labs: 01/24/19 13:00 01/24/19 13:18 PT 12.6 SECONDS (9.4-12.5) H 01/24/19 13:00 INR 1.12 01/24/19 13:00 APTT 35.1 Seconds (26.9-38.3) 01/24/19 13:00 - Additional Findings Additional findings: - Constitutional Appears: Well, Non-toxic - Head Exam Head Exam: ATRAUMATIC, NORMAL INSPECTION, NORMOCEPHALIC - Eye Exam Eye Exam: EOMI, Normal appearance, PERRL. absent: Scleral icterus Pupil Exam: NORMAL ACCOMODATION, PERRL - ENT Exam ENT Exam: Mucous Membranes Dry - Neck Exam Neck exam: Positive for: Normal Inspection - Respiratory Exam Respiratory Exam: Clear to Auscultation Bilateral, NORMAL BREATHING PATTERN. absent: Rales, Rhonchi, Wheezes - Cardiovascular Exam Cardiovascular Exam: REGULAR RHYTHM, +S1, +S2. absent: Gallop, RRR, Rubs - GI/Abdominal Exam GI & Abdominal Exam: Hypoactive Bowel Sounds, Soft, Tenderness (epigastric, periumbilical). absent: Hernia, Mass, Organomegaly, Rigid - Extremities Exam Extremities exam: Positive for: normal capillary refill, normal inspection, pedal pulses present. Negative for: tenderness - Back Exam Back exam: NORMAL INSPECTION. absent: CVA tenderness (L), CVA tenderness (R), rash noted - Psychiatric Exam Psychiatric exam: Normal Affect, Normal Mood - Skin Skin Exam: Dry, Intact, Normal Color, Warm Assessment and Plan - Assessment and Plan (Free Text) Assessment: 43 y/o male with PMH of Hep C (treated), cirrhosis with gastric/splenic varices, chronic pancreatitis with pseudocysts, uncontrolled DM2, splenic vein thrombosis, chronic back pain, HLD presents to the ED with abdominal pain, nausea, vomiting x3 days. Patient admitted for acute on chronic pancreatitis Plan: Abdominal pain/nausea/vomiting: -likely due to acute on chronic pancreatitis vs colitis -mild leukocytosis, afebrile -CT A/P: pancreatic pseudocyst. mild pancreatic inflammation -pain control: morphine 2 mg q4 prn -IVF, NS@125 cc/hr -zofran prn -VB.3/47/35 lactate of 3 -AST/ALT/ALP/Lipase //95/160 -ducolax TN prn for constipation (on ultram) -GI consulted Dr Renteria -UA negative for UTI -patient had persistent hicupps last night. relieved with one dose of reglan 5 mg IV. continue carafate 1g susp BID -per surgery note, Dr Zhang, abdominal pain 2/2 venous congestion of gastric, splenic, mesenteric veins, from 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 Patient also has splenic vein thrombosis. -IR consulted Dr Oates for portal vein stent placement Uncontrolled/complicated DM2: -HgA1c 13.8 -ISS-low -hold home neurontin -Endo consulted, Dr Saavedra HTN: -EKG: bradycardia@53, Incomplete RBBB. No ST-T changes. No QT prolongation -continue home lisinopril HLD: -lipid profile, CHOL 165 TG 373 LDL 50 HDL 21 -continue home lipitor h/o Hepatitis C and liver cirrhosis: -patient received treatment over 1 year ago -HCV viral load ordered -LFT not elevated PPX: DVT: SCD GI: protonix CCD Case reviewed and plan discussed with attending Dr Maurisio Lyn, <Maria Luisa Forde R - Last Filed: 01/26/19 08:01> Objective - Vital Signs/Intake and Output Vital Signs (last 24 hours): Temp Pulse Resp BP Pulse Ox 97.6 F 55 L 18 115/66 100 01/25/19 22:04 01/25/19 22:04 01/25/19 22:04 01/25/19 22:04 01/25/19 22:04 - Medications Medications: Current Medications Bisacodyl (Dulcolax) 10 mg RC DAILY PRN PRN Reason: Constipation Dextrose (Dextrose 50% Inj) 0 ml IV STAT PRN; Protocol PRN Reason: Hypoglycemia Protocol Dextrose (Dextrose 5% In Water 1000 Ml) 1,000 mls @ 0 mls/hr IV .Q0M PRN; Protocol PRN Reason: Hypoglycemia Protocol Sodium Chloride (Sodium Chloride 0.9%) 100 mls @ 125 mls/hr IV .Q48M DO Last Admin: 01/26/19 03:58 Dose: 125 mls/hr Insulin Detemir (Levemir) 24 unit SC HS [facility] Last Admin: 01/25/19 22:21 Dose: 24 units Insulin Human Lispro (Humalog) 8 units SC AC [facility] Last Admin: 01/25/19 18:50 Dose: 8 unit Insulin Human Lispro (Humalog Low) 0 units SC ACHS [facility]; Protocol Last Admin: 01/25/19 22:13 Dose: Not Given Morphine Sulfate (Morphine) 2 mg IVP Q4H PRN PRN Reason: Pain, severe (8-10) Last Admin: 01/26/19 05:39 Dose: 2 mg Ondansetron HCl (Zofran Inj) 4 mg IVP Q6H PRN PRN Reason: Nausea/Vomiting Last Admin: 01/26/19 00:18 Dose: 4 mg Pantoprazole Sodium (Protonix Inj) 40 mg IVP DAILY [facility] Last Admin: 01/25/19 10:16 Dose: Not Given Sucralfate (Carafate Oral Susp) 1 gm PO 0600,1600 [facility] Last Admin: 01/26/19 05:34 Dose: 1 gm Zolpidem Tartrate (Ambien) 5 mg PO HS PRN; Protocol PRN Reason: Insomnia Last Admin: 01/26/19 00:18 Dose: 5 mg - Labs Labs: 01/25/19 07:15 01/25/19 07:15 PT 12.6 SECONDS (9.4-12.5) H 01/24/19 13:00 INR 1.12 01/24/19 13:00 APTT 35.1 Seconds (26.9-38.3) 01/24/19 13:00 Attending/Attestation - Attestation I have personally seen and examined this patient.: Yes I have fully participated in the care of the patient.: Yes I have reviewed all pertinent clinical information, including history, physical exam and plan: Yes Notes (Text): Patient seen and examined by me with resident at approximately 11:10AM on 01/16 . Case including HPI, physical exam, and assessment and plan discussed with resident. Agree with above with following additions/corrections. Patient is a 43-year-old male with past medical history significant for chronic hepatitis C status post treatment, cirrhosis with gastric and splenic varices, chronic pancreatitis with pseudocysts, poorly controlled insulin-dependent type 2 diabetes, splenic vein thrombosis, chronic back pain, and hypertriglyceridemia that presented to the emergency room with nausea, vomiting, and abdominal pain. Patient states he is not feeling too well. States he was unable to sleep overnight secondary to hiccups, nausea, and vomiting. Still with abdominal pain and nausea. Hiccups are currently resolved. He denies any chest pain or shortness of breath. No palpitations. No headaches or dizziness. No fevers or chills. No dysuria. No bowel movement. Physical exam: General: Awake and alert lying in bed in no acute distress. HEENT: Normocephalic, atraumatic. Extraocular muscles intact. Pupils equal and reactive, no scleral icterus. Oropharynx is pink. Positive dry mucous membranes No pharyngeal erythema or exudate appreciated. Neck is supple. Cardiovascular: Regular rhythm. Normal S1 and S2. No murmurs, rubs, or gallops appreciated Pulmonary: Normal respiratory effort. No rhonci, rales, or wheezing appreciated. Gastrointestinal: Soft, nondistended. Positive generalized tenderness, more prominent right mid and lower quadrants. Positive bowel sounds all 4 quadrants. No guarding. Musculoskeletal: Moves all extremities. No calf tenderness. No edema a ppreciated. Central nervous system: AAO x3. CN2-12 grossly intact. Dermatologic: Skin warm and dry. Assessment and plan: Patient is a 43-year-old male with past medical history significant for chronic hepatitis C status post treatment, cirrhosis with gastric and splenic varices, chronic pancreatitis with pseudocysts, poorly controlled insulin-dependent type 2 diabetes, splenic vein thrombosis, chronic back pain, and hypertriglyceridemia that presented to the emergency room with nausea, vomiting, and abdominal pain. 1. Abdominal pain likely secondary to acute on chronic pancreatitis with nausea and vomiting. Continue NPO. Continue IV fluids. Continue Zofran prn. Continue pain management. GI recommendations appreciated. CT abd/pelvis per radiologist showed acutely abnormal pancreas included pancreatic head and body, pseudocyst formation remains, difficult to differentiate chronic findings from potential acute/necrotizing pancreatitis; postoperative findings chest marsupialization of pancreas/stomach; mild hepatic enlargement and no hepatomegaly, bowel duct dilatation consistent with prior cholecystectomy, no visible structural lesions in the pancreatic duct, no visible right lower quadrant inflammatory abnormalities, stable calculus nonobstructing lower pole left kidney. 2. Leukocytosis. Likely reactive. Resolved. Continue to monitor. 3. Hypertriglyceridemia. Triglycerides downtrending. Endocrinology recommendations appreciated. Continue to monitor. 4. Insulin-dependent type 2 diabetes with hyperglycemia. Endocrinology recommendations appreciated. Continue insulin sliding scale. Levemir changed to 24 units subcutaneous qHS. Continue Lispro AC. Continue to monitor Accu-Cheks. 5. Burning with urination. Resolved. UA negative for infection. 6. Chronic splenic vein thrombosis and gastric varcies. ?portal vein compression. GI recommendations appreciated. Hepatobiliary surgeon consulted. 7. Hisotry of Hepatitis C. S/P Mavyret therapy. Pending Viral load. 8. Constipation. Placed on dulcolax suppository daily as needed. Case was discussed in detail with the patient regarding current diagnosis, study results, and treatment plan. All questions answered.
[2019-01-25 07:38] LABS: BASO # 0.03 K/mm3 (0.0-2.0); BASO % 0.4 % (0.0-3.0); EOS # 0.1 (0.0-0.7); EOS % 1.2 % (1.5-5.0); LYMPH # 1.4 (1.2-3.4); LYMPH % 17.7 % (22.0-35.0); MEAN CELL VOLUME 78.2 fl (80.0-105.0); MEAN CORPUSCULAR HEMOGLOBIN 26.1 pg (25.0-35.0); MEAN CORPUSCULAR HGB CONC 33.3 g/dl (31.0-37.0); MEAN PLATELET VOLUME 10.2 fl (7.0-11.0); MONO # 0.5 (0.1-0.6); MONO % 6.2 % (1.0-6.0); RBC 4.91 10^6/uL (3.5-6.1); RED CELL DISTRIBUTION WIDTH 15.1 % (11.5-14.5); WHITE BLOOD COUNT 7.8 10^3/uL (4.5-11.0)
[2019-01-25 07:40] LABS: HEMOGLOBIN 12.8 g/dL (14.0-18.0)
[2019-01-25 07:54] LABS: ALB/GLOB RATIO 1.2 (1.1-1.8); ALBUMIN 3.4 g/dL (3.0-4.8); ALT/SGPT 19 U/L (7-56); AST/SGOT 15 U/L (17-59); BLOOD UREA NITROGEN 17 mg/dL (7-21); CALCIUM 8.3 mg/dL (8.4-10.5); GFR NON-AFRICAN AMERICAN > 60; HDL CHOLESTEROL 21 mg/dL (29-60); LIPASE 185 U/L (23-300)
[2019-01-25 07:56] LABS: LDL CHOLESTEROL 50 mg/dL (0-129)
[2019-01-25] MEDS: Sodium Chloride 0.9% 100 ML IV SCH ×2 (08:00→21:49)
--- NOTE | 2019-01-25 08:30 | CON ---
DATE: 01/24/2019 ENDOCRINOLOGY CONSULTATION LOCATION: In room 5 . HISTORY OF PRESENT ILLNESS: upper abdominal pain supervening intractable nausea, dyspepsia, vomiting, diabetic management and evaluation. PAST MEDICAL HISTORY: As mentioned above. History of type 2 insulin-requiring diabetes on a combination of Levemir given as 24 units subcutaneously at bedtime daily with Humalog given as 12 units t.i.d., history of hypertension, history of underlying liver cirrhosis, portal hypertension, gastric varices history of chronic pancreatitis, pseudocyst formation, multiple admissions for recurrent relapse episode with recurrent reluctant episode with previous cholecystectomy and appendectomy, history of lumbar disk disease and chronic lower back pain. FAMILY HISTORY: Positive for diabetes and hypertension. SOCIAL HISTORY: The patient is a former smoker, but denies any substance use, has supportive family . REVIEW OF SYSTEMS: As mentioned above, admits to generalized body weakness, suboptimal energy level, also admits with episode of dizziness and lightheadedness worse on the day of admission. No chest pain or palpitations or PND. His oral intake has been variable and suboptimal with nausea, dyspepsia and intractable vomiting episode. Also admits to severe and diffuse upper abdominal pain localized in the epigastric area. She also admits to occasional loose stools as noted, but no overt melena or hematochezia. PHYSICAL EXAMINATION: GENERAL: This is an average built male in no apparent distress. VITAL SIGNS: Blood pressure of 150/90, pulse of 100 beats per minute and regular, temperature 99, respirations of 20, height is 5 feet 9 inches, and weight is 155 pounds. HEENT: Head is normocephalic. Eyes; anicteric with pink conjunctivae. Funduscopy not possible at this time. Ears, nose, and throat otherwise normal. NECK: Supple. Thyroid gland is normal size. No carotid bruit or cervical adenopathy. CARDIOPULMONARY: Some adynamic precordium. S1 and S2 is rapid and regular. LUNGS: Clear to auscultation. ABDOMEN: Positive direct tenderness. No evidence of rebound with hypoactive bowel sounds. LABORATORY DATA: WBC 5.4, hemoglobin of 15, hematocrit of 44, MCV 77 with platelets 187. Chemistries showed a BUN of 16, sodium 138, potassium 4.7, chloride 98, CO2 of 22, glucose 393, and creatinine of 0.7. His glucose levels have ranged from 334 to 412 mg/dL. His lipase level is 160. Triglycerides are pending. Cholesterol is 240 and HDL is 22. ASSESSMENT: This is a 43-year-old male with uncontrolled and decompensated type 2 insulin requiring diabetes with marked hyperglycemic accelerations, presenting here with chronic recurrent pancreatitis and severe upper abdominal pain, intractable vomiting episodes as noted. He also most likely has marked dyslipidemia all the way awaiting the results, triglycerides levels at this time. PLAN OF MANAGEMENT: Confer with current n.p.o. status at this time and we will intensify his glucose monitoring every 4 hours if possible with a modified coverage scale to obviate hypoglycemia with Humalog insulin as given. We will add basal insulin given as Levemir at 12 units every 12 hours at 10 a.m. and 10 p.m. daily prior tonight and this will be given if the patient is n.p.o. as clearly as marked hyperglycemic accelerations with ongoing hepatic gluconeogenesis and glycogenolysis as noted. We will continue the IV hydration as given and obtain serial chemistries accordingly as needed. Hemoglobin A1c and we will obtain a repeat lipase and lipid panel tomorrow morning and will improve the lipoprotein fractionation to exclude any underlying familial combined dyslipidemia. . We will obtain serial chemistries and supplement accordingly as needed . His oral intake advanced to solid food, then prior to that on the more physiologic basal and bolus insulin drug combination as indicated. We will follow. Gaby Saavedra MD
--- NOTE | 2019-01-25 08:54 | CP.PCM.CON ---
History of Present Illness - History of Present Illness History of Present Illness: PGY6 GI Fellow Consult Note Patient is a 43yo male with PMHx significant for chronic pancreatitis 2/2 hypertriglyceridemia, pancreatic insufficiency, pancreatic pseudocysts with prior open resection of infected pseudocyst, HCV GT3a s/p therapy with Mavyret (SVR not documented), splenic vein thrombosis and gastric/splenic varices and DM who presented to the ED with complaint of abdominal pain. Patient has had numerous admissions previously for the same complaint. He notes 3-4 days of worsening epigastric abdominal pain with nausea, vomiting and now intractable hiccups. He has been unable to tolerate oral intake for the last 24 hours without nausea/vomiting. Hiccups began last night and have been continuous. He did not take any new medications at home and admits to compliance with prescribed therapy. Denies any recent alcohol or tobacco use. 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 12 system ROS performed and negative except where stated PMHx: See HPI PSHx: Cholecystectomy, appendectomy, open pseudocyst resection FHx: Mother - unclear malignancy (bone?); Father - CAD, CHF, DM Social: Denies tobacco, EtOH or illicit substance abuse - EMR states tobacco use as recent as 2 months prior Endo: No documents for review - all prior endoscopic procedures performed at other facilities Past Patient History - Infectious Disease Hx of Infectious Diseases: None - Tetanus Immunizations Tetanus Immunization: Unknown - Past Medical History & Family History Past Medical History?: Yes - Past Social History Smoking Status: Former Smoker - CARDIAC Hx Hypertension: Yes - PULMONARY Hx Respiratory Disorders: No Hx Asthma: No Hx Bronchitis: No Hx Chronic Obstructive Pulmonary Disease (COPD): No Hx Emphysema: No Hx Pneumonia: No Hx Respiratory Aspiration: No Hx Respiratory Tract Infection: No Hx Sleep Apnea: No Hx Tuberculosis: No - NEUROLOGICAL Hx Neurological Disorder: No Hx Alzheimer's Disease: No HX Cerebrovascular Accident: No Hx Dementia: No Hx Dizziness: No Hx Meningitis: No Hx Migraine: No Hx Parkinson's Disease: No Hx Seizures: No Hx Transient Ischemic Attacks (TIA): No - HEENT Hx HEENT Problems: No Hx Blind: No Hx Cataracts: No Hx Deafness: No Hx Difficulty Chewing: No Hx Epistaxis: No Hx Glaucoma: No Hx Macular Degeneration: No - RENAL Hx Chronic Kidney Disease: No Hx Dialysis: No Hx Kidney Stones: No Hx Neurogenic Bladder: No Hx Pyelonephritis: No Hx Renal (Kidney) Cancer: No Hx Renal Failure: No - ENDOCRINE/METABOLIC Hx Endocrine Disorders: No Hx Adrenal Cancer: No Hx Diabetes Insipidus: No Hx Diabetes Mellitus Type 1: No Hx Diabetes Mellitus Type 2: Yes Hx Hyperthyroidism: No Hx Hypothyroidism: No Hx Systemic Lupus Erythematosus: No - HEMATOLOGICAL/ONCOLOGICAL Hx Blood Disorders: No Hx AIDS: No Hx Anemia: No Hx Cancer: No Hx Chemotherapy: No Hx Cirrhosis: No Hx Hemophilia: No Hx Hepatitis A: No Hx Hepatitis B: No Hx Hepatitis C: Yes Hx Metastesis: No Hx Shingles: No Hx Sickle Cell Disease: No Hx Unexplained Bleeding: No - INTEGUMENTARY Hx Dermatological Problems: No Hx Basil Cell: No Hx Eczema: No Hx Melanoma: No Hx Psoriasis: No Hx Squamous Cell: No - MUSCULOSKELETAL/RHEUMATOLOGICAL Hx Falls: Yes - GASTROINTESTINAL Hx Gastrointestinal Disorders: No Hx Colostomy: No Hx Crohn's Disease: No Hx Gall Bladder Disease: Yes Hx Ileostomy: No Hx Liver Failure: No Hx Pancreatitis: Yes HX Swallowing Problems: No - GENITOURINARY/GYNECOLOGICAL Hx Genitourinary Disorders: No Hx Hematuria: No Hx Incontinence: No Hx Prostate Problems: No Hx Sexually Transmitted Disorders: No Hx Urinary Tract Infection: No - PSYCHIATRIC Hx Psychophysiologic Disorder: No Hx Anxiety: No Hx Bipolar Disorder: No Hx Depression: No Hx Emotional Abuse: No Hx Hallucinations: No Hx Panic Symptoms: No Hx Post Traumatic Stress Disorder: No Hx Psychosis: No Hx Physical Abuse: No Hx Schizophrenia: No Hx Sexual Abuse: No - SURGICAL HISTORY Hx Amputation: No Hx Appendectomy: Yes Hx Cardiac Catheterization: No Hx Cholecystectomy: Yes Hx Coronary Stent: No Hx Gastric Bypass Surgery: No Hx Hysterectomy: No Hx Joint Replacement: No Hx Kidney Transplant: No Hx Liver Transplant: No Hx Mastectomy: No Hx Musculoskeletal Surgery: No Hx Open Heart Surgery: No Hx Orthopedic Surgery: No Hx Splenectomy: No Hx Valve Replacement: No - ANESTHESIA Hx Anesthesia: Yes Hx Anesthesia Reactions: No Hx Malignant Hyperthermia: No Meds Allergies/Adverse Reactions: Allergies Allergy/AdvReac Type Severity Reaction Status Date / Time hair color dye Allergy RASH Uncoded 09/30/18 12:11 - Medications Medications: Current Medications Dextrose (Dextrose 50% Inj) 0 ml IV STAT PRN; Protocol PRN Reason: Hypoglycemia Protocol Dextrose (Dextrose 5% In Water 1000 Ml) 1,000 mls @ 0 mls/hr IV .Q0M PRN; Protocol PRN Reason: Hypoglycemia Protocol Sodium Chloride (Sodium Chloride 0.9%) 100 mls @ 150 mls/hr IV .Q40M [facility] Last Admin: 01/24/19 16:59 Dose: 150 mls/hr Insulin Detemir (Levemir) 12 unit SC Q12H [facility] Last Admin: 01/24/19 21:40 Dose: 12 units Insulin Human Lispro (Humalog Low) 0 units SC ACHS [facility]; Protocol Last Admin: 01/24/19 21:23 Dose: Not Given Morphine Sulfate (Morphine) 2 mg IVP Q4H PRN PRN Reason: Pain, severe (8-10) Last Admin: 01/25/19 05:36 Dose: 2 mg Ondansetron HCl (Zofran Inj) 4 mg IVP Q6H PRN PRN Reason: Nausea/Vomiting Last Admin: 01/25/19 05:36 Dose: 4 mg Pantoprazole Sodium (Protonix Inj) 40 mg IVP DAILY [facility] Last Admin: 01/25/19 05:43 Dose: 40 mg Sucralfate (Carafate Oral Susp) 1 gm PO 0600,1600 [facility] Zolpidem Tartrate (Ambien) 5 mg PO HS PRN; Protocol PRN Reason: Insomnia Last Admin: 01/24/19 22:22 Dose: 5 mg Physical Exam - Constitutional Appears: No Acute Distress, Other (uncomfortable, frequent hiccups) - Eye Exam Eye Exam: EOMI, PERRL - ENT Exam ENT Exam: Mucous Membranes Moist - Respiratory Exam Respiratory Exam: Clear to Auscultation Bilateral. absent: Rales, Rhonchi, Wheezes - Cardiovascular Exam Cardiovascular Exam: RRR, +S1, +S2 - GI/Abdominal Exam GI & Abdominal Exam: Guarding, Normal Bowel Sounds, Soft, Tenderness (diffuse, worst in epigastric and RUQ). absent: Distended, Firm, Mass, Organomegaly, Rigid Additional comments: healed midline, RUQ and RLQ surgical scars - Extremities Exam Extremities exam: Positive for: normal inspection. Negative for: pedal edema - Neurological Exam Neurological exam: Alert, Oriented x3 - Psychiatric Exam Psychiatric exam: Normal Affect, Normal Mood - Skin Skin Exam: Dry, Warm Results - Vital Signs Recent Vital Signs: Last Vital Signs Temp 98 F 01/25/19 06:00 Pulse 80 01/25/19 06:00 Resp 20 01/25/19 06:00 BP 129/74 01/25/19 06:00 Pulse Ox 99 01/25/19 06:00 - Labs Result Diagrams: 01/25/19 07:15 01/25/19 07:15 Labs: Laboratory Results - last 24 hr 01/24/19 01/24/19 01/24/19 13:00 13:00 13:00 WBC 12.4 H D RBC 5.73 Hgb 15.3 D Hct 44.6 MCV 77.8 L D MCH 26.7 MCHC 34.3 RDW 14.9 H Plt Count 187 MPV 11.4 H Neut % (Auto) 88.4 H Lymph % (Auto) 9.5 L Perkins % (Auto) 1.8 Eos % (Auto) 0.1 L Baso % (Auto) 0.2 Lymph # (Auto) 1.2 Perkins # (Auto) 0.2 Eos # (Auto) 0.0 Baso # (Auto) 0.02 Absolute Neuts (auto) 10.94 H PT 12.6 H INR 1.12 APTT 35.1 pO2 VBG pH VBG pCO2 VBG HCO3 VBG Total CO2 VBG O2 Sat (Calc) VBG Base Excess VBG Potassium Sodium Chloride Glucose Lactate FiO2 Crit Value Called To Crit Value Called By Blood Gas Notified Time Potassium Carbon Dioxide Anion Gap BUN Creatinine Est GFR ( Amer) Est GFR (Non-Af Amer) POC Glucose (mg/dL) Random Glucose Calcium Phosphorus Magnesium Total Bilirubin Direct Bilirubin 0.5 H AST ALT Alkaline Phosphatase Troponin I Total Protein Albumin Globulin Albumin/Globulin Ratio Triglycerides Cholesterol LDL Cholesterol Direct HDL Cholesterol Lipase TSH 3rd Generation Venous Blood Potassium Urine Color Urine Appearance Urine pH Ur Specific [place] Urine Protein Urine Glucose (UA) Urine Ketones Urine Blood Urine Nitrate Urine Bilirubin Urine Urobilinogen Ur Leukocyte Esterase 01/24/19 01/24/19 01/24/19 13:10 13:18 13:18 WBC RBC Hgb Hct MCV MCH MCHC RDW Plt Count MPV Neut % (Auto) Lymph % (Auto) [place] % (Auto) Eos % (Auto) Baso % (Auto) Lymph # (Auto) Perkins # (Auto) Eos # (Auto) Baso # (Auto) Absolute Neuts (auto) PT INR APTT pO2 35 VBG pH 7.30 L VBG pCO2 47.0 VBG HCO3 23.1 VBG Total CO2 24.5 VBG O2 Sat (Calc) 69.0 H VBG Base Excess -3.6 L VBG Potassium 4.5 Sodium 136.0 138 Chloride 95.0 L 98 Glucose 407 H* Lactate 3.0 H FiO2 21.0 Crit Value Called To Nini aggarwal Crit Value Called By Rt Blood Gas Notified Time 1320 Potassium 4.7 Carbon Dioxide 22 Anion Gap 23 H BUN 16 Creatinine 0.7 L Est GFR ( Amer) > 60 Est GFR (Non-Af Amer) > 60 POC Glucose (mg/dL) Random Glucose 393 H* D Calcium 9.6 Phosphorus Magnesium 1.7 Total Bilirubin 1.5 H Direct Bilirubin AST 21 ALT 21 Alkaline Phosphatase 95 Troponin I 0.01 Total Protein 8.3 Albumin 4.5 Globulin 3.7 Albumin/Globulin Ratio 1.2 Triglycerides 823 H Cholesterol 240 H LDL Cholesterol Direct 48 HDL Cholesterol 22 L Lipase 160 TSH 3rd Generation Venous Blood Potassium 4.5 Urine Color Urine Appearance Urine pH Ur Specific [place] Urine Protein Urine Glucose (UA) Urine Ketones Urine Blood Urine Nitrate Urine Bilirubin Urine Urobilinogen Ur Leukocyte Esterase 01/24/19 01/24/19 01/24/19 14:54 16:07 17:13 WBC RBC Hgb Hct MCV MCH MCHC RDW Plt Count MPV Neut % (Auto) Lymph % (Auto) [place] % (Auto) Eos % (Auto) Baso % (Auto) Lymph # (Auto) [place] # (Auto) Eos # (Auto) Baso # (Auto) Absolute Neuts (auto) PT INR APTT pO2 109 H VBG pH 7.28 L VBG pCO2 49.0 VBG HCO3 23.0 VBG Total CO2 24.5 VBG O2 Sat (Calc) 98.3 H VBG Base Excess -4.1 L VBG Potassium 4.3 Sodium 139.0 Chloride 103.0 Glucose 314 H Lactate 2.9 H FiO2 21.0 Crit Value Called To Harinder bullard Crit Value Called By Atc Blood Gas Notified Time 1730 Potassium Carbon Dioxide Anion Gap BUN Creatinine Est GFR ( Amer) Est GFR (Non-Af Amer) POC Glucose (mg/dL) 412 H* 334 H Random Glucose Calcium Phosphorus Magnesium Total Bilirubin Direct Bilirubin AST ALT Alkaline Phosphatase Troponin I Total Protein Albumin Globulin Albumin/Globulin Ratio Triglycerides Cholesterol LDL Cholesterol Direct HDL Cholesterol Lipase TSH 3rd Generation Venous Blood Potassium 4.3 Urine Color Urine Appearance Urine pH Ur Specific [place] Urine Protein Urine Glucose (UA) Urine Ketones Urine Blood Urine Nitrate Urine Bilirubin Urine Urobilinogen Ur Leukocyte Esterase 01/24/19 01/25/19 01/25/19 20:34 06:20 07:15 WBC 7.8 D RBC 4.91 Hgb 12.8 L D Hct 38.4 L MCV 78.2 L MCH 26.1 MCHC 33.3 RDW 15.1 H Plt Count 140 MPV 10.2 Neut % (Auto) 74.5 H Lymph % (Auto) 17.7 L [place] % (Auto) 6.2 H Eos % (Auto) 1.2 L Baso % (Auto) 0.4 Lymph # (Auto) 1.4 [place] # (Auto) 0.5 Eos # (Auto) 0.1 Baso # (Auto) 0.03 Absolute Neuts (auto) 5.82 PT INR APTT pO2 VBG pH VBG pCO2 VBG HCO3 VBG Total CO2 VBG O2 Sat (Calc) VBG Base Excess VBG Potassium Sodium Chloride Glucose Lactate FiO2 Crit Value Called To Crit Value Called By Blood Gas Notified Time Potassium Carbon Dioxide Anion Gap BUN Creatinine Est GFR ( Amer) Est GFR (Non-Af Amer) POC Glucose (mg/dL) 269 H Random Glucose Calcium Phosphorus Magnesium Total Bilirubin Direct Bilirubin AST ALT Alkaline Phosphatase Troponin I Total Protein Albumin Globulin Albumin/Globulin Ratio Triglycerides Cholesterol LDL Cholesterol Direct HDL Cholesterol Lipase TSH 3rd Generation Venous Blood Potassium Urine Color Yellow Urine Appearance Clear Urine pH 6.0 Ur Specific [place] 1.020 Urine Protein Negative Urine Glucose (UA) >=1000 Urine Ketones >=80 Urine Blood Negative Urine Nitrate Negative Urine Bilirubin Negative Urine Urobilinogen 0.2 Ur Leukocyte Esterase Negative 01/25/19 01/25/19 01/25/19 07:15 07:15 08:38 WBC RBC Hgb Hct MCV MCH MCHC RDW Plt Count MPV Neut % (Auto) Lymph % (Auto) [place] % (Auto) Eos % (Auto) Baso % (Auto) Lymph # (Auto) [place] # (Auto) Eos # (Auto) Baso # (Auto) Absolute Neuts (auto) PT INR APTT pO2 VBG pH VBG pCO2 VBG HCO3 VBG Total CO2 VBG O2 Sat (Calc) VBG Base Excess VBG Potassium Sodium 137 Chloride 102 Glucose Lactate FiO2 Crit Value Called To Crit Value Called By Blood Gas Notified Time Potassium 4.2 Carbon Dioxide 28 Anion Gap 12 BUN 17 Creatinine 0.6 L Est GFR ( Amer) > 60 Est GFR (Non-Af Amer) > 60 POC Glucose (mg/dL) 272 H Random Glucose 251 H Calcium 8.3 L Phosphorus 3.2 Magnesium 1.7 Total Bilirubin 1.1 Direct Bilirubin AST 15 L D ALT 19 Alkaline Phosphatase 65 Troponin I Total Protein 6.3 Albumin 3.4 Globulin 2.9 Albumin/Globulin Ratio 1.2 Triglycerides 373 H Cholesterol 169 LDL Cholesterol Direct 50 HDL Cholesterol 21 L Lipase 185 TSH 3rd Generation 0.29 L Venous Blood Potassium Urine Color Urine Appearance Urine pH Ur Specific [place] Urine Protein Urine Glucose (UA) Urine Ketones Urine Blood Urine Nitrate Urine Bilirubin Urine Urobilinogen Ur Leukocyte Esterase Assessment & Plan - Assessment and Plan (Free Text) Assessment: Patient is a 43yo male with PMHx significant for chronic pancreatitis 2/2 hypertriglyceridemia, pancreatic insufficiency, pancreatic pseudocysts with prior open resection of infected pseudocyst, HCV GT3a s/p therapy with Mavyret (SVR not documented), splenic vein thrombosis and gastric/splenic varices and DM who presented to the ED with complaint of abdominal pain -Acute exacerbation of acute pancreatitis -Hypertriglyceridemia -Pancreatic pseudocyst -Pancreatic insufficiency -Hiccups -HCV s/p tx with Mavyret, unknown SVR -Known splenic vein thrombosis and resultant gastric varices -Uncontrolled DM Plan: -Pain possibly 2/2 recurrent exacerbation of chronic pancreatitis vs diabetic gastroparesis in the setting of uncontrolled DM (most recent A1c 13.5) -There is question of portal vein compression as a result of inflammation in the area of the head of the pancreas -Recommend consultation with hepatobiliary surgery - [place] -Tight glycemic and triglyceride control -Endocrinology consult noted -One dose reglan given this morning for hiccups/nausea - monitor for improvement -Added carafate 1g susp BID empirically for hiccups as etiology of esophagitis could lead to symptoms -OK to advance to liquid diet once pain improves and then advance as tolerated - goal of small meals/low fat/low fiber; will require weight based pancreatic enzyme supplementation -IVF as ordered -Check HCV viral load to confirm SVR s/p Mavyret therapy -Patient encouraged to abstain from tobacco/EtOH use - Date & Time Date: 01/25/19 Time: 07:45
--- NOTE | 2019-01-25 09:37 | CARD ---
APPROVED REPORT Date of service: 01/25/2019 EKG Measurement Heart [id number] <Conclusion> Normal sinus rhythm Left axis deviation Low voltage Possible septal infarct, age undetermined Abnormal ECG
[2019-01-25] MEDS: Sucralfate 1 gm/10 ml Oral Susp UD PO SCH ×2 (09:45→16:50)
[2019-01-25] MEDS: Insulin Detemir 100 units/ml Vial (Levemir) SC SCH (09:45)
[2019-01-25] MEDS: Insulin Lispro (humaLOG) LOW Coverage SC SCH ×4 (09:46→22:13)
--- NOTE | 2019-01-25 14:49 | CP.PCM.CON ---
<Marquez Shine - Last Filed: 01/25/19 15:07> History of Present Illness - History of Present Illness History of Present Illness: SURGERY CONSULT NOTE FOR DR. ZHANG 43M presents with abdominal pain. He has a long history of pain usually from his pancreatitis. He states this pain is diffuse and constant. It has been going on now for 4 days. Patient denies any nausea, vomiting, fevers or chills. He admits to hx of constipation. PMH: chronic pancreatitis 2/2 hypertriglyceridemia, pancreatic insufficiency, pancreatic pseudocysts with prior open resection of infected pseudocyst, HCV, splenic vein thrombosis and gastric/splenic varices and DM PSH: Appendectomy (ruptured appendix), Cholecystectomy, Pancreatic Pseudocyst resection, [place] procedure Family History: Mother-Bone Cancer, Father- from [place] at 53 Social History: Prior tobacco (quit cigars 7 months ago, smoked 3 cigars daily for 4 years), denies EtOH/Illicits/IVDA Allergy: NKDA Past Patient History - Infectious Disease Hx of Infectious Diseases: None - Tetanus Immunizations Tetanus Immunization: Unknown - Past Medical History & Family History Past Medical History?: Yes - Past Social History Smoking Status: Former Smoker - CARDIAC Hx Hypertension: Yes - PULMONARY Hx Respiratory Disorders: No Hx Asthma: No Hx Bronchitis: No Hx Chronic Obstructive Pulmonary Disease (COPD): No Hx Emphysema: No Hx Pneumonia: No Hx Respiratory Aspiration: No Hx Respiratory Tract Infection: No Hx Sleep Apnea: No Hx Tuberculosis: No - NEUROLOGICAL Hx Neurological Disorder: No Hx Alzheimer's Disease: No HX Cerebrovascular Accident: No Hx Dementia: No Hx Dizziness: No Hx Meningitis: No Hx Migraine: No Hx Parkinson's Disease: No Hx Seizures: No Hx Transient Ischemic Attacks (TIA): No - HEENT Hx HEENT Problems: No Hx Blind: No Hx Cataracts: No Hx Deafness: No Hx Difficulty Chewing: No Hx Epistaxis: No Hx Glaucoma: No Hx Macular Degeneration: No - RENAL Hx Chronic Kidney Disease: No Hx Dialysis: No Hx Kidney Stones: No Hx Neurogenic Bladder: No Hx Pyelonephritis: No Hx Renal (Kidney) Cancer: No Hx Renal Failure: No - ENDOCRINE/METABOLIC Hx Endocrine Disorders: No Hx Adrenal Cancer: No Hx Diabetes Insipidus: No Hx Diabetes Mellitus Type 1: No Hx Diabetes Mellitus Type 2: Yes Hx Hyperthyroidism: No Hx Hypothyroidism: No Hx Systemic Lupus Erythematosus: No - HEMATOLOGICAL/ONCOLOGICAL Hx Blood Disorders: No Hx AIDS: No Hx Anemia: No Hx Cancer: No Hx Chemotherapy: No Hx Cirrhosis: No Hx Hemophilia: No Hx Hepatitis A: No Hx Hepatitis B: No Hx Hepatitis C: Yes Hx Metastesis: No Hx Shingles: No Hx Sickle Cell Disease: No Hx Unexplained Bleeding: No - INTEGUMENTARY Hx Dermatological Problems: No Hx Basil Cell: No Hx Eczema: No Hx Melanoma: No Hx Psoriasis: No Hx Squamous Cell: No - MUSCULOSKELETAL/RHEUMATOLOGICAL Hx Falls: Yes - GASTROINTESTINAL Hx Gastrointestinal Disorders: No Hx Colostomy: No Hx Crohn's Disease: No Hx Gall Bladder Disease: Yes Hx Ileostomy: No Hx Liver Failure: No Hx Pancreatitis: Yes HX Swallowing Problems: No - GENITOURINARY/GYNECOLOGICAL Hx Genitourinary Disorders: No Hx Hematuria: No Hx Incontinence: No Hx Prostate Problems: No Hx Sexually Transmitted Disorders: No Hx Urinary Tract Infection: No - PSYCHIATRIC Hx Psychophysiologic Disorder: No Hx Anxiety: No Hx Bipolar Disorder: No Hx Depression: No Hx Emotional Abuse: No Hx Hallucinations: No Hx Panic Symptoms: No Hx Post Traumatic Stress Disorder: No Hx Psychosis: No Hx Physical Abuse: No Hx Schizophrenia: No Hx Sexual Abuse: No - SURGICAL HISTORY Hx Amputation: No Hx Appendectomy: Yes Hx Cardiac Catheterization: No Hx Cholecystectomy: Yes Hx Coronary Stent: No Hx Gastric Bypass Surgery: No Hx Hysterectomy: No Hx Joint Replacement: No Hx Kidney Transplant: No Hx Liver Transplant: No Hx Mastectomy: No Hx Musculoskeletal Surgery: No Hx Open Heart Surgery: No Hx Orthopedic Surgery: No Hx Splenectomy: No Hx Valve Replacement: No - ANESTHESIA Hx Anesthesia: Yes Hx Anesthesia Reactions: No Hx Malignant Hyperthermia: No Meds Allergies/Adverse Reactions: Allergies Allergy/AdvReac Type Severity Reaction Status Date / Time hair color dye Allergy RASH Uncoded 09/30/18 12:11 - Medications Medications: Current Medications Bisacodyl (Dulcolax) 10 mg RC DAILY PRN PRN Reason: Constipation Dextrose (Dextrose 50% Inj) 0 ml IV STAT PRN; Protocol PRN Reason: Hypoglycemia Protocol Dextrose (Dextrose 5% In Water 1000 Ml) 1,000 mls @ 0 mls/hr IV .Q0M PRN; Protocol PRN Reason: Hypoglycemia Protocol Sodium Chloride (Sodium Chloride 0.9%) 100 mls @ 125 mls/hr IV .Q48M DO Insulin Detemir (Levemir) 24 unit SC HS [facility] Insulin Human Lispro (Humalog) 8 units SC AC DO Insulin Human Lispro (Humalog Low) 0 units SC ACHS [facility]; Protocol Morphine Sulfate (Morphine) 2 mg IVP Q4H PRN PRN Reason: Pain, severe (8-10) Last Admin: 01/25/19 09:53 Dose: 2 mg Ondansetron HCl (Zofran Inj) 4 mg IVP Q6H PRN PRN Reason: Nausea/Vomiting Last Admin: 01/25/19 11:04 Dose: 4 mg Pantoprazole Sodium (Protonix Inj) 40 mg IVP DAILY [facility] Last Admin: 01/25/19 05:43 Dose: 40 mg Sucralfate (Carafate Oral Susp) 1 gm PO 0600,1600 [facility] Last Admin: 01/25/19 09:45 Dose: 1 gm Zolpidem Tartrate (Ambien) 5 mg PO HS PRN; Protocol PRN Reason: Insomnia Last Admin: 01/24/19 22:22 Dose: 5 mg Physical Exam - Constitutional Appears: Other (uncomfortable 2/2 abd pain) - Eye Exam Eye Exam: EOMI - ENT Exam ENT Exam: Mucous Membranes Moist - Respiratory Exam Respiratory Exam: Clear to Auscultation Bilateral, NORMAL BREATHING PATTERN - Cardiovascular Exam Cardiovascular Exam: REGULAR RHYTHM, +S1, +S2 - GI/Abdominal Exam GI & Abdominal Exam: Soft, Tenderness. absent: Distended, Firm, Guarding, Rebound, Rigid Additional comments: healed surgical incisions mcburneys incision eduardo incision midline incision - Extremities Exam Extremities exam: Negative for: pedal edema, tenderness - Neurological Exam Neurological exam: Alert, Oriented x3 - Skin Skin Exam: Dry, Intact, Normal Color, Warm Results - Vital Signs Recent Vital Signs: Last Vital Signs Temp 98 F 01/25/19 06:00 Pulse 80 01/25/19 06:00 Resp 20 01/25/19 06:00 BP 129/74 01/25/19 06:00 Pulse Ox 99 01/25/19 06:00 - Labs Result Diagrams: 01/25/19 07:15 01/25/19 07:15 Labs: Laboratory Results - last 24 hr 01/24/19 01/24/19 01/24/19 13:00 13:10 13:18 WBC RBC Hgb Hct MCV MCH MCHC RDW Plt Count MPV Neut % (Auto) Lymph % (Auto) [place] % (Auto) Eos % (Auto) Baso % (Auto) Lymph # (Auto) [place] # (Auto) Eos # (Auto) Baso # (Auto) Absolute Neuts (auto) pO2 35 VBG pH 7.30 L VBG pCO2 47.0 VBG HCO3 23.1 VBG Total CO2 24.5 VBG O2 Sat (Calc) 69.0 H VBG Base Excess -3.6 L VBG Potassium 4.5 Sodium 136.0 Chloride 95.0 L Glucose 407 H* Lactate 3.0 H FiO2 21.0 Crit Value Called To Nini aggarwal Crit Value Called By Rt Blood Gas Notified Time 1320 Potassium Carbon Dioxide Anion Gap BUN Creatinine Est GFR ( Amer) Est GFR (Non-Af Amer) POC Glucose (mg/dL) Random Glucose Hemoglobin A1c Calcium Phosphorus Magnesium Total Bilirubin Direct Bilirubin 0.5 H AST ALT Alkaline Phosphatase Total Protein Albumin Globulin Albumin/Globulin Ratio Triglycerides 823 H Cholesterol 240 H LDL Cholesterol Direct 48 HDL Cholesterol 22 L Lipase TSH 3rd Generation Venous Blood Potassium 4.5 Urine Color Urine Appearance Urine pH Ur Specific Romeo Urine Protein Urine Glucose (UA) Urine Ketones Urine Blood Urine Nitrate Urine Bilirubin Urine Urobilinogen Ur Leukocyte Esterase 01/24/19 01/24/19 01/24/19 14:54 16:07 17:13 WBC RBC Hgb Hct MCV MCH MCHC RDW Plt Count MPV Neut % (Auto) Lymph % (Auto) [place] % (Auto) Eos % (Auto) Baso % (Auto) Lymph # (Auto) [place] # (Auto) Eos # (Auto) Baso # (Auto) Absolute Neuts (auto) pO2 109 H VBG pH 7.28 L VBG pCO2 49.0 VBG HCO3 23.0 VBG Total CO2 24.5 VBG O2 Sat (Calc) 98.3 H VBG Base Excess -4.1 L VBG Potassium 4.3 Sodium 139.0 Chloride 103.0 Glucose 314 H Lactate 2.9 H FiO2 21.0 Crit Value Called To Harinder bullard Crit Value Called By Atc Blood Gas Notified Time 1730 Potassium Carbon Dioxide Anion Gap BUN Creatinine Est GFR ( Amer) Est GFR (Non-Af Amer) POC Glucose (mg/dL) 412 H* 334 H Random Glucose Hemoglobin A1c Calcium Phosphorus Magnesium Total Bilirubin Direct Bilirubin AST ALT Alkaline Phosphatase Total Protein Albumin Globulin Albumin/Globulin Ratio Triglycerides Cholesterol LDL Cholesterol Direct HDL Cholesterol Lipase TSH 3rd Generation Venous Blood Potassium 4.3 Urine Color Urine Appearance Urine pH Ur Specific Romeo Urine Protein Urine Glucose (UA) Urine Ketones Urine Blood Urine Nitrate Urine Bilirubin Urine Urobilinogen Ur Leukocyte Esterase 01/24/19 01/25/19 01/25/19 20:34 06:20 07:15 WBC 7.8 D RBC 4.91 Hgb 12.8 L D Hct 38.4 L MCV 78.2 L MCH 26.1 MCHC 33.3 RDW 15.1 H Plt Count 140 MPV 10.2 Neut % (Auto) 74.5 H Lymph % (Auto) 17.7 L [place] % (Auto) 6.2 H Eos % (Auto) 1.2 L Baso % (Auto) 0.4 Lymph # (Auto) 1.4 [place] # (Auto) 0.5 Eos # (Auto) 0.1 Baso # (Auto) 0.03 Absolute Neuts (auto) 5.82 pO2 VBG pH VBG pCO2 VBG HCO3 VBG Total CO2 VBG O2 Sat (Calc) VBG Base Excess VBG Potassium Sodium Chloride Glucose Lactate FiO2 Crit Value Called To Crit Value Called By Blood Gas Notified Time Potassium Carbon Dioxide Anion Gap BUN Creatinine Est GFR ( Amer) Est GFR (Non-Af Amer) POC Glucose (mg/dL) 269 H Random Glucose Hemoglobin A1c Calcium Phosphorus Magnesium Total Bilirubin Direct Bilirubin AST ALT Alkaline Phosphatase Total Protein Albumin Globulin Albumin/Globulin Ratio Triglycerides Cholesterol LDL Cholesterol Direct HDL Cholesterol Lipase TSH 3rd Generation Venous Blood Potassium Urine Color Yellow Urine Appearance Clear Urine pH 6.0 Ur Specific Romeo 1.020 Urine Protein Negative Urine Glucose (UA) >=1000 Urine Ketones >=80 Urine Blood Negative Urine Nitrate Negative Urine Bilirubin Negative Urine Urobilinogen 0.2 Ur Leukocyte Esterase Negative 01/25/19 01/25/19 01/25/19 07:15 07:15 07:15 WBC RBC Hgb Hct MCV MCH MCHC RDW Plt Count MPV Neut % (Auto) Lymph % (Auto) [place] % (Auto) Eos % (Auto) Baso % (Auto) Lymph # (Auto) [place] # (Auto) Eos # (Auto) Baso # (Auto) Absolute Neuts (auto) pO2 VBG pH VBG pCO2 VBG HCO3 VBG Total CO2 VBG O2 Sat (Calc) VBG Base Excess VBG Potassium Sodium 137 Chloride 102 Glucose Lactate FiO2 Crit Value Called To Crit Value Called By Blood Gas Notified Time Potassium 4.2 Carbon Dioxide 28 Anion Gap 12 BUN 17 Creatinine 0.6 L Est GFR ( Amer) > 60 Est GFR (Non-Af Amer) > 60 POC Glucose (mg/dL) Random Glucose 251 H Hemoglobin A1c 13.8 H Calcium 8.3 L Phosphorus 3.2 Magnesium 1.7 Total Bilirubin 1.1 Direct Bilirubin AST 15 L D ALT 19 Alkaline Phosphatase 65 Total Protein 6.3 Albumin 3.4 Globulin 2.9 Albumin/Globulin Ratio 1.2 Triglycerides 373 H Cholesterol 169 LDL Cholesterol Direct 50 HDL Cholesterol 21 L Lipase 185 TSH 3rd Generation 0.29 L Venous Blood Potassium Urine Color Urine Appearance Urine pH Ur Specific [place]o Urine Protein Urine Glucose (UA) Urine Ketones Urine Blood Urine Nitrate Urine Bilirubin Urine Urobilinogen Ur Leukocyte Esterase 01/25/19 08:38 WBC RBC Hgb Hct MCV MCH MCHC RDW Plt Count MPV Neut % (Auto) Lymph % (Auto) [place] % (Auto) Eos % (Auto) Baso % (Auto) Lymph # (Auto) [place] # (Auto) Eos # (Auto) Baso # (Auto) Absolute Neuts (auto) pO2 VBG pH VBG pCO2 VBG HCO3 VBG Total CO2 VBG O2 Sat (Calc) VBG Base Excess VBG Potassium Sodium Chloride Glucose Lactate FiO2 Crit Value Called To Crit Value Called By Blood Gas Notified Time Potassium Carbon Dioxide Anion Gap BUN Creatinine Est GFR ( Amer) Est GFR (Non-Af Amer) POC Glucose (mg/dL) 272 H Random Glucose Hemoglobin A1c Calcium Phosphorus Magnesium Total Bilirubin Direct Bilirubin AST ALT Alkaline Phosphatase Total Protein Albumin Globulin Albumin/Globulin Ratio Triglycerides Cholesterol LDL Cholesterol Direct HDL Cholesterol Lipase TSH 3rd Generation Venous Blood Potassium Urine Color Urine Appearance Urine pH Ur Specific [place] Urine Protein Urine Glucose (UA) Urine Ketones Urine Blood Urine Nitrate Urine Bilirubin Urine Urobilinogen Ur Leukocyte Esterase Assessment & Plan - Assessment and Plan (Free Text) Assessment: 43M with history of chronic pancreatitis and pseudocysts, presents with abdominal pain 2/2 venous congestion of gastric, splenic, mesenteric veins, from 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 Patient also has splenic vein thrombosis. Plan: - Patient will need portal venous stenting to relieve stricture - May require splenic arterial embolization vs splenectomy if stents do not improve symptoms Case discussed with Dr. Marianela Shine, PGY3 <Salinas Zhang - Last Filed: 01/28/19 12:53> Meds - Medications Medications: Current Medications Bisacodyl (Dulcolax) 10 mg RC DAILY PRN PRN Reason: Constipation Dextrose (Dextrose 50% Inj) 0 ml IV STAT PRN; Protocol PRN Reason: Hypoglycemia Protocol Fenofibrate (Tricor) 145 mg PO DAILY [facility] Last Admin: 01/28/19 09:47 Dose: 145 mg Home Med (Home Med) 2 unit PO WM [facility] Last Admin: 01/28/19 09:32 Dose: 2 unit Dextrose (Dextrose 5% In Water 1000 Ml) 1,000 mls @ 0 mls/hr IV .Q0M PRN; Protocol PRN Reason: Hypoglycemia Protocol Sodium Chloride (Sodium Chloride 0.9%) 1,000 mls @ 125 mls/hr IV .Q8H [facility] Last Admin: 01/28/19 10:01 Dose: 125 mls/hr Insulin Detemir (Levemir) 32 unit SC HS [facility] Insulin Human Lispro (Humalog Low) 0 units SC ACHS [facility]; Protocol Last Admin: 01/28/19 10:03 Dose: Not Given Insulin Human Lispro (Humalog) 12 units SC AC [facility] Morphine Sulfate (Morphine) 2 mg IVP Q4H PRN PRN Reason: Pain, severe (8-10) Last Admin: 01/28/19 09:27 Dose: 2 mg [id number] Ethyl Esters (Lovaza) 2 gm PO BID [facility] Ondansetron HCl (Zofran Inj) 4 mg IVP Q6H PRN PRN Reason: Nausea/Vomiting Last Admin: 01/28/19 09:26 Dose: 4 mg Pantoprazole Sodium (Protonix Inj) 40 mg IVP DAILY [facility] Last Admin: 01/28/19 09:24 Dose: 40 mg Polyethylene Glycol (Miralax) 17 gm PO DAILY [facility] Sucralfate (Carafate Oral Susp) 1 gm PO 0600,1600 [facility] Last Admin: 01/28/19 06:16 Dose: 1 gm Zolpidem Tartrate (Ambien) 5 mg PO HS PRN; Protocol PRN Reason: Insomnia Last Admin: 01/27/19 22:53 Dose: 5 mg Results - Vital Signs Recent Vital Signs: Last Vital Signs Temp 97.8 F 01/27/19 22:00 Pulse 58 L 01/27/19 22:00 Resp 18 01/27/19 22:00 BP 134/80 01/27/19 22:00 Pulse Ox 99 01/27/19 22:00 - Labs Result Diagrams: 01/28/19 07:20 01/28/19 07:20 Labs: Laboratory Results - last 24 hr 01/27/19 01/27/19 01/28/19 16:43 22:38 07:03 WBC RBC Hgb Hct MCV MCH MCHC RDW Plt Count MPV Neut % (Auto) Lymph % (Auto) [place] % (Auto) Eos % (Auto) Baso % (Auto) Lymph # (Auto) [place] # (Auto) Eos # (Auto) Baso # (Auto) Absolute Neuts (auto) Sodium Potassium Chloride Carbon Dioxide Anion Gap BUN Creatinine Est GFR ( Amer) Est GFR (Non-Af Amer) POC Glucose (mg/dL) 249 H 252 H 283 H Random Glucose Calcium Phosphorus Magnesium Total Bilirubin AST ALT Alkaline Phosphatase Total Protein Albumin Globulin Albumin/Globulin Ratio Triglycerides Cholesterol LDL Cholesterol Direct HDL Cholesterol Lipase 01/28/19 01/28/19 01/28/19 07:20 07:20 11:37 WBC 4.2 L RBC 4.67 Hgb 12.1 L Hct 36.1 L MCV 77.3 L MCH 25.9 MCHC 33.5 RDW 14.3 Plt Count 88 L MPV 9.9 Neut % (Auto) 49.4 L Lymph % (Auto) 42.5 H [place] % (Auto) 4.5 Eos % (Auto) 2.6 Baso % (Auto) 1.0 Lymph # (Auto) 1.8 [place] # (Auto) 0.2 Eos # (Auto) 0.1 Baso # (Auto) 0.04 Absolute Neuts (auto) 2.07 Sodium 134 Potassium 4.1 Chloride 103 Carbon Dioxide 27 Anion Gap 8 L BUN 6 L Creatinine 0.6 L Est GFR ( Amer) > 60 Est GFR (Non-Af Amer) > 60 POC Glucose (mg/dL) 192 H Random Glucose 265 H Calcium 8.5 Phosphorus 3.3 Magnesium 1.7 Total Bilirubin 0.5 AST 17 ALT 21 Alkaline Phosphatase 67 Total Protein 6.0 Albumin 3.1 Globulin 2.9 Albumin/Globulin Ratio 1.1 Triglycerides 473 H Cholesterol 143 LDL Cholesterol Direct 75 HDL Cholesterol 16 L Lipase 29 Assessment & Plan - Assessment and Plan (Free Text) Plan: All medical record entries made by the Scribe were at my direction. I have reviewed the chart and agree that the record accurately reflects my personal performance of the history, physical exam, and medical decision making.
--- NOTE | 2019-01-25 18:39 | PN ---
DATE: 01/25/2019 ENDOCRINOLOGY FOLLOWUP NOTE LOCATION: Room 573. SUBJECTIVE: This is a 43-year-old male with recent uncontrolled type 2 insulin-requiring diabetes with marked hyperglycemic accelerations and presenting here with severe upper abdominal pain with intractable nausea, dyspepsia, and vomiting and evaluated to be in acute pancreatitis for underlying mixed dyslipidemia otherwise. His glucose levels are fluctuating but have ranged from 334 to 412 mmHg. LABORATORY DATA: His chemistries showed a BUN of 16, sodium 138, potassium 4.7, chloride 98, CO2 of 22, glucose 393 and creatinine 0.7. These were the chemistries actually done yesterday as noted and today's glucose are of lower range from 269 to 272 mg/dL. His repeat chemistries showed a BUN of 17, sodium 137, potassium 4.2, chloride 102, CO2 of 28, glucose 251, and creatinine 0.6. ASSESSMENT: This is a 43-year-old male with uncontrolled and decompensated type 2 insulin requiring diabetes presenting with acute exacerbation of relapsing pancreatitis with associated marked dyslipidemia and elevated triglyceride values as noted. His repeat triglycerides were actually 373 and it was over 800 yesterday as noted. His LDL is 50 and the cholesterol is 169 and the repeat TSH is 0.29. So the assessment is this a 43-year-old male with uncontrolled and decompensated type 2 insulin requiring diabetes with marked hyperglycemic accelerations with underlying mixed dyslipidemia which could also have triggered or precipitated his pancreatitis as noted thereof. He has remarkable metabolic response to just vigorous IV hydration as given. He has significant history of chronic relapsing pancreatitis with a previous cholecystectomy and so the possibility of a truly metabolic disorder precipitating the aforementioned is most likely at this time. PLAN OF MANAGEMENT: We will actually advance his diet now to a soft, low-fat, low-cholesterol diet and heart healthy diet with moderate carb-consistent selection to start at dinner time today as ordered. We will also modify his insulin regimen and start him on Humalog given as 8 units three times daily before meals to start today as ordered. Will also add Levemir only at bedtime 24 units subcutaneous at bedtime daily as ordered. We will modify the to obviate hypoglycemia and detailed orders have been given. We will obtain serial chemistries accordingly and continue also the meticulous IV hydration as given. We will follow. Gaby Saavedra MD
[2019-01-25] MEDS: Insulin Lispro 1 UNITS/0.01 ML SC SCH (18:50)
[2019-01-25] MEDS ORDERED: Insulin Detemir 100 units/ml Vial (Levemir) SC SCH (22:00)
[2019-01-26] MEDS: Sodium Chloride 0.9% 100 ML IV SCH ×3 (03:58→21:09)
[2019-01-26] MEDS: Sucralfate 1 gm/10 ml Oral Susp UD PO SCH ×2 (05:34→16:25)
[2019-01-26] MEDS: Morphine 2 mg/ml ISec IVP PRN ×4 (05:39→23:26)
[2019-01-26 07:56] LABS: BASO # 0.04 K/mm3 (0.0-2.0); BASO % 0.8 % (0.0-3.0); EOS # 0.2 (0.0-0.7); EOS % 3.1 % (1.5-5.0); HEMOGLOBIN 12.1 g/dL (14.0-18.0); LYMPH # 1.9 (1.2-3.4); LYMPH % 38.1 % (22.0-35.0); MEAN CELL VOLUME 78.4 fl (80.0-105.0); MEAN CORPUSCULAR HEMOGLOBIN 25.6 pg (25.0-35.0); MEAN CORPUSCULAR HGB CONC 32.6 g/dl (31.0-37.0); MONO # 0.3 (0.1-0.6); MONO % 6.3 % (1.0-6.0); RBC 4.73 10^6/uL (3.5-6.1); RED CELL DISTRIBUTION WIDTH 14.9 % (11.5-14.5); WHITE BLOOD COUNT 5.1 10^3/uL (4.5-11.0)
[2019-01-26 08:19] LABS: ALB/GLOB RATIO 1.1 (1.1-1.8); ALBUMIN 3.1 g/dL (3.0-4.8); ALT/SGPT 12 U/L (7-56); AST/SGOT 16 U/L (17-59); BLOOD UREA NITROGEN 9 mg/dL (7-21); CALCIUM 8.3 mg/dL (8.4-10.5); GFR NON-AFRICAN AMERICAN > 60
[2019-01-26] MEDS: Insulin Lispro 1 UNITS/0.01 ML SC SCH ×3 (08:26→17:18)
[2019-01-26] MEDS: Insulin Lispro (humaLOG) LOW Coverage SC SCH ×4 (08:26→21:01)
--- NOTE | 2019-01-26 09:51 | CP.PCM.PN ---
<Halima Akins - Last Filed: 01/26/19 11:14> Subjective - Date & Time of Evaluation Date of Evaluation: 01/26/19 Time of Evaluation: 09:47 - Subjective Subjective: HBP Surgery Dr. Bear Pt seen and examined @bedside. No acute events overnight. Pt has no complaints this AM. denies F/C, N/V, abd pain, D/C. tolerating diet. Pt expressed desire to leave hospital and discuss w/ PMD need for portal-venous stenting and return at later date if 2nd opinion agrees w/ stenting. This headline writer discussed plan for stenting w/ pt's sister at pt's request. Objective - Vital Signs/Intake and Output Vital Signs (last 24 hours): Temp Pulse Resp BP Pulse Ox 97.4 F L 69 18 104/64 98 01/26/19 06:00 01/26/19 06:00 01/26/19 06:00 01/26/19 06:00 01/26/19 06:00 - Medications Medications: Current Medications Bisacodyl (Dulcolax) 10 mg RC DAILY PRN PRN Reason: Constipation Dextrose (Dextrose 50% Inj) 0 ml IV STAT PRN; Protocol PRN Reason: Hypoglycemia Protocol Dextrose (Dextrose 5% In Water 1000 Ml) 1,000 mls @ 0 mls/hr IV .Q0M PRN; Protocol PRN Reason: Hypoglycemia Protocol Sodium Chloride (Sodium Chloride 0.9%) 100 mls @ 125 mls/hr IV .Q48M DO Last Admin: 01/26/19 03:58 Dose: 125 mls/hr Insulin Detemir (Levemir) 24 unit SC HS [facility] Last Admin: 01/25/19 22:21 Dose: 24 units Insulin Human Lispro (Humalog) 8 units SC AC [facility] Last Admin: 01/26/19 08:26 Dose: 8 unit Insulin Human Lispro (Humalog Low) 0 units SC ACHS [facility]; Protocol Last Admin: 01/26/19 08:26 Dose: Not Given Morphine Sulfate (Morphine) 2 mg IVP Q4H PRN PRN Reason: Pain, severe (8-10) Last Admin: 01/26/19 05:39 Dose: 2 mg Ondansetron HCl (Zofran Inj) 4 mg IVP Q6H PRN PRN Reason: Nausea/Vomiting Last Admin: 01/26/19 00:18 Dose: 4 mg Pantoprazole Sodium (Protonix Inj) 40 mg IVP DAILY DO Last Admin: 01/26/19 09:44 Dose: 40 mg Sucralfate (Carafate Oral Susp) 1 gm PO 0600,1600 DO Last Admin: 01/26/19 05:34 Dose: 1 gm Zolpidem Tartrate (Ambien) 5 mg PO HS PRN; Protocol PRN Reason: Insomnia Last Admin: 01/26/19 00:18 Dose: 5 mg - Labs Labs: 01/26/19 07:01 01/26/19 07:01 PT 12.6 SECONDS (9.4-12.5) H 01/24/19 13:00 INR 1.12 01/24/19 13:00 APTT 35.1 Seconds (26.9-38.3) 01/24/19 13:00 - Constitutional Appears: Non-toxic, No Acute Distress - Head Exam Head Exam: NORMAL INSPECTION - Eye Exam Eye Exam: Normal appearance - ENT Exam ENT Exam: Mucous Membranes Moist - Respiratory Exam Respiratory Exam: NORMAL BREATHING PATTERN. absent: Accessory Muscle Use, Res piratory Distress - Cardiovascular Exam Cardiovascular Exam: absent: Bradycardia, Tachycardia - GI/Abdominal Exam GI & Abdominal Exam: absent: Distended, Firm, Guarding, Rigid, Tenderness, Rebound - Extremities Exam Extremities Exam: Normal Inspection - Neurological Exam Neurological Exam: Alert, Awake, Oriented x3 - Psychiatric Exam Psychiatric exam: Normal Affect, Normal Mood - Skin Skin Exam: Dry, Intact, Normal Color, Warm Assessment and Plan - Assessment and Plan (Free Text) Assessment: 43 y/o M w/ resolved abd pain 2/2 venous congestion of gastric, splenic, and mesenteric veins 2/2 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 Pt also has splenic vein thrombosis. Plan: - Recommend portal venous stenting to relieve stricture - May require splenic arterial embolization vs splenectomy if stents do not improve symptoms - f/u IR recs - cont non-narcotic pain management - encourage OOB to chair/Amb - cont medical management Pt discussed w/ Dr. Marianela Akins PGY3 <Sal[place] Bear - Last Filed: 01/28/19 12:51> Objective - Vital Signs/Intake and Output Vital Signs (last 24 hours): Temp Pulse Resp BP Pulse Ox 97.8 F 58 L 18 134/80 99 05/12/19 22:00 01/27/19 22:00 01/27/19 22:00 01/27/19 22:00 01/27/19 22:00 Intake and Output: 01/28/19 01/28/19 06:59 18:59 Intake Total 940 120 Balance 940 120 - Medications Medications: Current Medications Bisacodyl (Dulcolax) 10 mg RC DAILY PRN PRN Reason: Constipation Dextrose (Dextrose 50% Inj) 0 ml IV STAT PRN; Protocol PRN Reason: Hypoglycemia Protocol Fenofibrate (Tricor) 145 mg PO DAILY [facility] Last Admin: 01/28/19 09:47 Dose: 145 mg Home Med (Home Med) 2 unit PO WM [facility] Last Admin: 01/28/19 09:32 Dose: 2 unit Dextrose (Dextrose 5% In Water 1000 Ml) 1,000 mls @ 0 mls/hr IV .Q0M PRN; Protocol PRN Reason: Hypoglycemia Protocol Sodium Chloride (Sodium Chloride 0.9%) 1,000 mls @ 125 mls/hr IV .Q8H [facility] Last Admin: 01/28/19 10:01 Dose: 125 mls/hr Insulin Detemir (Levemir) 32 unit SC HS [facility] Insulin Human Lispro (Humalog Low) 0 units SC [facility]; Protocol Last Admin: 01/28/19 10:03 Dose: Not Given Insulin Human Lispro (Humalog) 12 units SC AC [facility] Morphine Sulfate (Morphine) 2 mg IVP Q4H PRN PRN Reason: Pain, severe (8-10) Last Admin: 01/28/19 09:27 Dose: 2 mg [id number] Ethyl Esters (Lovaza) 2 gm PO BID [facility] Ondansetron HCl (Zofran Inj) 4 mg IVP Q6H PRN PRN Reason: Nausea/Vomiting Last Admin: 01/28/19 09:26 Dose: 4 mg Pantoprazole Sodium (Protonix Inj) 40 mg IVP DAILY [facility] Last Admin: 01/28/19 09:24 Dose: 40 mg Polyethylene Glycol (Miralax) 17 gm PO DAILY [facility] Sucralfate (Carafate Oral Susp) 1 gm PO 0600,1600 [facility] Last Admin: 01/28/19 06:16 Dose: 1 gm Zolpidem Tartrate (Ambien) 5 mg PO HS PRN; Protocol PRN Reason: Insomnia Last Admin: 01/27/19 22:53 Dose: 5 mg - Labs Labs: 01/28/19 07:20 01/28/19 07:20 PT 12.6 SECONDS (9.4-12.5) H 01/24/19 13:00 INR 1.12 01/24/19 13:00 APTT 35.1 Seconds (26.9-38.3) 01/24/19 13:00 Assessment and Plan - Assessment and Plan (Free Text) Plan: All medical record entries made by the Scribe were at my direction. I have reviewed the chart and agree that the record accurately reflects my personal performance of the history, physical exam, and medical decision making.
--- NOTE | 2019-01-26 12:40 | CP.PCM.PN ---
<Raffy Lebron - Last Filed: 01/26/19 14:00> Subjective - Date & Time of Evaluation Date of Evaluation: 01/26/19 Time of Evaluation: 08:00 - Subjective Subjective: Raffy Lebron DO, PGY-1 Hospitalist Progress Note for Dr. Shania Forde Patient was seen and examined at bedside this AM. He reports persistent abdominal pain but is tolerating clear liquid diet better without significant nausea/vomiting. He inquired about the need for stent placement and is considering requesting a second surgical opinion prior to undergoing any intervention. Objective - Vital Signs/Intake and Output Vital Signs (last 24 hours): Temp Pulse Resp BP Pulse Ox 97.4 F L 69 18 104/64 98 01/26/19 06:00 01/26/19 06:00 01/26/19 06:00 01/26/19 06:00 01/26/19 06:00 - Medications Medications: Current Medications Bisacodyl (Dulcolax) 10 mg RC DAILY PRN PRN Reason: Constipation Dextrose (Dextrose 50% Inj) 0 ml IV STAT PRN; Protocol PRN Reason: Hypoglycemia Protocol Dextrose (Dextrose 5% In Water 1000 Ml) 1,000 mls @ 0 mls/hr IV .Q0M PRN; Protocol PRN Reason: Hypoglycemia Protocol Sodium Chloride (Sodium Chloride 0.9%) 100 mls @ 125 mls/hr IV .Q48M DO Last Admin: 01/26/19 03:58 Dose: 125 mls/hr Insulin Detemir (Levemir) 30 unit SC HS [facility] Insulin Human Lispro (Humalog Low) 0 units SC ACHS [facility]; Protocol Last Admin: 01/26/19 12:06 Dose: Not Given Insulin Human Lispro (Humalog) 10 units SC AC [facility] Last Admin: 01/26/19 12:08 Dose: 10 units Morphine Sulfate (Morphine) 2 mg IVP Q4H PRN PRN Reason: Pain, severe (8-10) Last Admin: 01/26/19 09:51 Dose: 2 mg Ondansetron HCl (Zofran Inj) 4 mg IVP Q6H PRN PRN Reason: Nausea/Vomiting Last Admin: 01/26/19 09:48 Dose: 4 mg Pantoprazole Sodium (Protonix Inj) 40 mg IVP DAILY [facility] Last Admin: 01/26/19 09:44 Dose: 40 mg Sucralfate (Carafate Oral Susp) 1 gm PO 0600,1600 DO Last Admin: 01/26/19 05:34 Dose: 1 gm Zolpidem Tartrate (Ambien) 5 mg PO HS PRN; Protocol PRN Reason: Insomnia Last Admin: 01/26/19 00:18 Dose: 5 mg - Labs Labs: 01/26/19 07:01 01/26/19 07:01 PT 12.6 SECONDS (9.4-12.5) H 01/24/19 13:00 INR 1.12 01/24/19 13:00 APTT 35.1 Seconds (26.9-38.3) 01/24/19 13:00 - Constitutional Appears: Non-toxic, No Acute Distress - Head Exam Head Exam: ATRAUMATIC, NORMOCEPHALIC - Eye Exam Eye Exam: Normal appearance, PERRL - ENT Exam ENT Exam: Mucous Membranes Moist - Neck Exam Neck Exam: Full ROM, Normal Inspection - Respiratory Exam Respiratory Exam: Clear to Ausculation Bilateral, NORMAL BREATHING PATTERN. absent: Accessory Muscle Use, Rales, Rhonchi, Wheezes, Respiratory Distress - Cardiovascular Exam Cardiovascular Exam: REGULAR RHYTHM, RRR, +S1, +S2. absent: Gallop, Rubs, Murmur - GI/Abdominal Exam GI & Abdominal Exam: Soft, Tenderness (diffuse mild tenderness to palpation), Normal Bowel Sounds. absent: Distended, Guarding - Extremities Exam Extremities Exam: Full ROM. absent: Tenderness - Back Exam Back Exam: Full ROM, NORMAL INSPECTION - Neurological Exam Neurological Exam: Alert, Oriented x3 - Psychiatric Exam Psychiatric exam: Normal Affect, Normal Mood - Skin Skin Exam: Dry, Intact, Warm Assessment and Plan - Assessment and Plan (Free Text) Assessment: 43 yo M with PMH of chronic pancreatitis (w/infected pseudocysts s/p gastrostomy with RANJAN in 2014), cirrhosis (complicated by gastric/splenic varices), splenic v thrombosis, Hep C (s/p treatment), poorly controlled DM2, and HLD presented to ED with worsening nausea/vomiting/abd pain. Plan: Intractable Abdominal Pain Likely 2/2 acute on chronic pancreatitis CTAP with abnormal pancreas which is difficult to differentiate chronic from acute findings Diet advanced to clear liquid, tolerating well without nausea/vomiting Patient evaluated by [facility] surgery, Dr. Bear, yesterday Recommends portal venous stenting to relieve stricture, suspect this will improve patient's abdominal pain Patient was also informed that he may require splenic artery embolization vs splenectomy if stents fail to improve sx's Patient is requesting a second opinion Informed patient that stenting procedure is different from surgery Per GI, will also need repeat EGD to assess Patient currently discussing treatment options with family Both are hesitant to pursue surgical options, including stenting, at this time Will continue to f/u regarding patient preferences GI, HPB surgery following, all recs appreciated Chronic splenic v thrombosis Portal venous stenting recommended per HPB surgery recs Continue non-narcotic pain management GI, HPB surgery following, all recs appreciated Recurrent Hiccups Likely 2/2 acute on chronic portal v. thrombosis Reglan x 2 doses given F/u with GI whether additional agents can be used Hypertriglyceridemia May be 2/2 poorly controlled DM2 Basal insulin regimen increased to 30 u nightly Levels trended down since admission Endo following, all recs appreciated DM2 A1c this visit 13.8 Continue ISS - low Nightly levemir increased to 30 u, with 10 u humalog AC Endo following, all recs appreciated Chronic Hepatitis C S/p treatment with mavyret Constipation Dulcolax RC PRN DVT/GI PPX: SCD/protonix Full Code Clear liquid diet Monitor on med/surg Patient seen, examined with, and plan discussed with my attending Dr. Shania Lebron D.O. IM Resident PGY-1 Pager: [phone] <Maria Luisa Forde R - Last Filed: 01/26/19 14:46> Objective - Vital Signs/Intake and Output Vital Signs (last 24 hours): Temp Pulse Resp BP Pulse Ox 98 F 55 L 18 130/81 100 01/26/19 14:00 01/26/19 14:00 01/26/19 14:00 01/26/19 14:00 01/26/19 14:00 Intake and Output: 01/26/19 01/26/19 06:59 18:59 Intake Total 1620 Balance 1620 - Medications Medications: Current Medications Bisacodyl (Dulcolax) 10 mg RC DAILY PRN PRN Reason: Constipation Dextrose (Dextrose 50% Inj) 0 ml IV STAT PRN; Protocol PRN Reason: Hypoglycemia Protocol Dextrose (Dextrose 5% In Water 1000 Ml) 1,000 mls @ 0 mls/hr IV .Q0M PRN; Protocol PRN Reason: Hypoglycemia Protocol Sodium Chloride (Sodium Chloride 0.9%) 100 mls @ 125 mls/hr IV .Q48M [facility] Last Admin: 01/26/19 12:34 Dose: 125 mls/hr Insulin Detemir (Levemir) 30 unit SC HS [facility] Insulin Human Lispro (Humalog Low) 0 units SC ACHS [facility]; Protocol Last Admin: 01/26/19 12:06 Dose: Not Given Insulin Human Lispro (Humalog) 10 units SC AC [facility] Last Admin: 01/26/19 12:08 Dose: 10 units Morphine Sulfate (Morphine) 2 mg IVP Q4H PRN PRN Reason: Pain, severe (8-10) Last Admin: 01/26/19 09:51 Dose: 2 mg Ondansetron HCl (Zofran Inj) 4 mg IVP Q6H PRN PRN Reason: Nausea/Vomiting Last Admin: 01/26/19 09:48 Dose: 4 mg Pantoprazole Sodium (Protonix Inj) 40 mg IVP DAILY [facility] Last Admin: 01/26/19 09:44 Dose: 40 mg Sucralfate (Carafate Oral Susp) 1 gm PO 0600,1600 [facility] Last Admin: 01/26/19 05:34 Dose: 1 gm Zolpidem Tartrate (Ambien) 5 mg PO HS PRN; Protocol PRN Reason: Insomnia Last Admin: 01/26/19 00:18 Dose: 5 mg - Labs Labs: 01/26/19 07:01 01/26/19 07:01 PT 12.6 SECONDS (9.4-12.5) H 01/24/19 13:00 INR 1.12 01/24/19 13:00 APTT 35.1 Seconds (26.9-38.3) 01/24/19 13:00 Attending/Attestation - Attestation I have personally seen and examined this patient.: Yes I have fully participated in the care of the patient.: Yes I have reviewed all pertinent clinical information, including history, physical exam and plan: Yes Notes (Text): Patient seen and examined by me with resident at approximately 9:30AM on 01/26/19. Case including HPI, physical exam, and assessment and plan discussed with resident. Agree with above with following additions/corrections. Patient is a 43-year-old male with past medical history significant for chronic hepatitis C status post treatment, cirrhosis with gastric and splenic varices, chronic pancreatitis with pseudocysts, poorly controlled insulin-dependent type 2 diabetes, splenic vein thrombosis, chronic back pain, and hypertriglyceridemia that presented to the emergency room with nausea, vomiting, and abdominal pain. Patient states he is feeling a little better today. Still complaining of nausea and hiccups. Patient states he is tolerating liquids. Patient states abdominal pain is unchanged. He denies any chest pain or shortness of breath. No palpitations. No headaches or dizziness. No fevers or chills. No dysuria. . Physical exam: General: Awake and alert lying in bed in no acute distress. HEENT: Normocephalic, atraumatic. Extraocular muscles intact. Pupils equal and reactive, no scleral icterus. Oropharynx is pink. Positive dry mucous membranes No pharyngeal erythema or exudate appreciated. Neck is supple. Cardiovascular: Regular rhythm. Normal S1 and S2. No murmurs, rubs, or gallops appreciated Pulmonary: Normal respiratory effort. No rhonci, rales, or wheezing appreciated. Gastrointestinal: Soft, nondistended. Positive generalized tenderness, more prominent right mid and lower quadrants. Positive bowel sounds all 4 quadrants. No guarding. Musculoskeletal: Moves all extremities. No calf tenderness. No edema appr eciated. Central nervous system: AAO x3. CN2-12 grossly intact. Dermatologic: Skin warm and dry. Assessment and plan: Patient is a 43-year-old male with past medical history significant for chronic hepatitis C status post treatment, cirrhosis with gastric and splenic varices, chronic pancreatitis with pseudocysts, poorly controlled insulin-dependent type 2 diabetes, splenic vein thrombosis, chronic back pain, and hypertriglyceridemia that presented to the emergency room with nausea, vomiting, and abdominal pain. 1. Abdominal pain likely secondary to acute on chronic pancreatitis with nausea and vomiting. Possible gastroparesis. Continue IV fluids. Continue liquid diet. Continue Zofran prn. Continue Carafate. Continue pain management. GI recommendations appreciated. 2. Leukocytosis. Likely reactive. Resolved. Continue to monitor. 3. Hypertriglyceridemia. Triglycerides downtrending. Endocrinology recommendations appreciated. Continue to monitor. 4. Insulin-dependent type 2 diabetes with hyperglycemia. Endocrinology recommendations appreciated. Continue insulin sliding scale. Levemir changed to 30 units subcutaneous qHS. Continue Lispro AC. Continue to monitor Accu-Cheks. 5. Burning with urination. Resolved. UA negative for infection. 6. Chronic splenic vein thrombosis and gastric varcies. ?portal vein compression. GI recommendations appreciated. Hepatobiliary surgeon recomme ndations appreciated. Patient will need portal vein stent. IR consulted. Patient thinking about getting procedure done. 7. Hisotry of Hepatitis C. S/P Mavyret therapy. Pending Viral load. 8. Constipation. Continue dulcolax suppository daily as needed. Case was discussed in detail with the patient regarding current diagnosis, study results, and treatment plan. All questions answered.
--- NOTE | 2019-01-26 12:53 | CP.PCM.PN ---
Subjective - Date & Time of Evaluation Date of Evaluation: 01/26/19 Time of Evaluation: 12:51 - Subjective Subjective: Pt still with abdominal pain and states its the same from yesterday. Tolerating clear liquids. Objective - Vital Signs/Intake and Output Vital Signs (last 24 hours): Temp Pulse Resp BP Pulse Ox 97.4 F L 69 18 104/64 98 01/26/19 06:00 01/26/19 06:00 01/26/19 06:00 01/26/19 06:00 01/26/19 06:00 - Medications Medications: Current Medications Bisacodyl (Dulcolax) 10 mg RC DAILY PRN PRN Reason: Constipation Dextrose (Dextrose 50% Inj) 0 ml IV STAT PRN; Protocol PRN Reason: Hypoglycemia Protocol Dextrose (Dextrose 5% In Water 1000 Ml) 1,000 mls @ 0 mls/hr IV .Q0M PRN; Protocol PRN Reason: Hypoglycemia Protocol Sodium Chloride (Sodium Chloride 0.9%) 100 mls @ 125 mls/hr IV .Q48M [facility] Last Admin: 01/26/19 03:58 Dose: 125 mls/hr Insulin Detemir (Levemir) 30 unit SC HS [facility] Insulin Human Lispro (Humalog Low) 0 units SC ACHS [facility]; Protocol Last Admin: 01/26/19 12:06 Dose: Not Given Insulin Human Lispro (Humalog) 10 units SC [facility] Last Admin: 01/26/19 12:08 Dose: 10 units Morphine Sulfate (Morphine) 2 mg IVP Q4H PRN PRN Reason: Pain, severe (8-10) Last Admin: 01/26/19 09:51 Dose: 2 mg Ondansetron HCl (Zofran Inj) 4 mg IVP Q6H PRN PRN Reason: Nausea/Vomiting Last Admin: 01/26/19 09:48 Dose: 4 mg Pantoprazole Sodium (Protonix Inj) 40 mg IVP DAILY [facility] Last Admin: 01/26/19 09:44 Dose: 40 mg Sucralfate (Carafate Oral Susp) 1 gm PO 0600,1600 [facility] Last Admin: 01/26/19 05:34 Dose: 1 gm Zolpidem Tartrate (Ambien) 5 mg PO HS PRN; Protocol PRN Reason: Insomnia Last Admin: 01/26/19 00:18 Dose: 5 mg - Labs Labs: 01/26/19 07:01 01/26/19 07:01 PT 12.6 SECONDS (9.4-12.5) H 01/24/19 13:00 INR 1.12 01/24/19 13:00 APTT 35.1 Seconds (26.9-38.3) 01/24/19 13:00 - Constitutional Appears: Well, No Acute Distress - Head Exam Head Exam: ATRAUMATIC, NORMAL INSPECTION, NORMOCEPHALIC - Eye Exam Eye Exam: EOMI, Normal appearance, PERRL Pupil Exam: NORMAL ACCOMODATION - Neck Exam Neck Exam: Full ROM - Respiratory Exam Respiratory Exam: Clear to Ausculation Bilateral - Cardiovascular Exam Cardiovascular Exam: REGULAR RHYTHM, +S1, +S2 - GI/Abdominal Exam GI & Abdominal Exam: Distended, Tenderness - Extremities Exam Extremities Exam: Full ROM, Normal Inspection - Neurological Exam Neurological Exam: Alert, Awake, Oriented x3
--- NOTE | 2019-01-26 13:51 | PN ---
DATE: 01/26/2019 ENDO FOLLOWUP NOTE LOCATION: Room 573. SUBJECTIVE: This is a 43-year-old male with recent uncontrolled type 2 insulin-requiring diabetes, presenting with acute exacerbation of chronic relapsing pancreatitis and is now being followed closely for metabolic management. His oral intake has improved and has been able to tolerate his meals heart healthy low-fat meals accordingly. No further vomiting episodes, but admits to occasional nausea and dyspepsia accordingly. His glycemic levels are fluctuating, but improved and the glucose values have ranged from 192 to 246 mg/dL. It was 369 at dinner time last night. LABORATORY DATA: His chemistry showed a BUN of 9, sodium 137, potassium 3.7, chloride 103, CO2 30, glucose 173 and creatinine 0.6. His repeat triglycerides were 373 with a lipase of 185. ASSESSMENT AND PLAN: This is a 43-year-old male with uncontrolled and decompensated type 2 insulin-requiring diabetes with marked hyperglycemic accelerations and is now being followed closely for metabolic management. He also has chronic relapsing pancreatitis presenting here with acute exacerbation of the same with underlying marked dyslipidemia as noted. PLAN OF MANAGEMENT: As modifying yesterday, we actually advance his diet to a soft low-fat, low-cholesterol moderate carb consistent diet as ordered. We will modify his basal and bolus insulin regimen to optimize metabolic control. We will increase the Humalog to 10 units subcutaneously t.i.d. before meals to start today as ordered. We will also continue the low-dose correction scale using Humalog insulin as given. Moreover, we will also titrate his basal insulin and increase the Levemir to 30 units subcutaneously at bedtime daily to start tonight. We will obtain serial chemistries and supplement accordingly as needed. We will also continue the IV hydration as given accordingly. We will initiate diabetic education and dietary instructions to include insulin self-administration as ordered. We will follow and advise accordingly. Gaby Saavedra MD
[2019-01-26] MEDS: Insulin Detemir 100 units/ml Vial (Levemir) SC SCH (21:09)
[2019-01-27] MEDS: Sodium Chloride 0.9% 100 ML IV SCH (04:23)
[2019-01-27] MEDS: Sucralfate 1 gm/10 ml Oral Susp UD PO SCH ×2 (05:12→17:13)
[2019-01-27] MEDS: Morphine 2 mg/ml ISec IVP PRN ×3 (05:19→20:56)
[2019-01-27 07:33] LABS: BASO # 0.03 K/mm3 (0.0-2.0); BASO % 0.7 % (0.0-3.0); EOS # 0.1 (0.0-0.7); EOS % 2.2 % (1.5-5.0); HEMOGLOBIN 12.7 g/dL (14.0-18.0); LYMPH # 2.2 (1.2-3.4); LYMPH % 55.2 % (22.0-35.0); MEAN CELL VOLUME 77.2 fl (80.0-105.0); MEAN CORPUSCULAR HEMOGLOBIN 25.9 pg (25.0-35.0); MEAN CORPUSCULAR HGB CONC 33.5 g/dl (31.0-37.0); MEAN PLATELET VOLUME 9.9 fl (7.0-11.0); MONO # 0.2 (0.1-0.6); MONO % 4.7 % (1.0-6.0); RBC 4.91 10^6/uL (3.5-6.1); RED CELL DISTRIBUTION WIDTH 14.6 % (11.5-14.5)
[2019-01-27 08:03] LABS: ALB/GLOB RATIO 1.1 (1.1-1.8); ALBUMIN 3.1 g/dL (3.0-4.8); ALT/SGPT 21 U/L (7-56); AST/SGOT 19 U/L (17-59); BLOOD UREA NITROGEN 3 mg/dL (7-21); CALCIUM 8.4 mg/dL (8.4-10.5); GFR NON-AFRICAN AMERICAN > 60
[2019-01-27] MEDS ORDERED: Potassium Chloride 40 mEq/30 ml LIQ UD PO ONE (08:11)
[2019-01-27] MEDS: Insulin Lispro 1 UNITS/0.01 ML SC SCH ×3 (08:39→18:13)
[2019-01-27] MEDS: Insulin Lispro (humaLOG) LOW Coverage SC SCH ×3 (08:40→18:14)
[2019-01-27] MEDS ORDERED: Magnesium Sulfate 2 gm/50 ml 2 GM/50 ML BAG IVPB ONE (09:53)
[2019-01-27] MEDS ORDERED: Sodium Chloride 0.9% 100 ML IV SCH (13:00)
[2019-01-27] MEDS: Sodium Chloride 0.9% 1,000 ML IV SCH (13:09)
--- NOTE | 2019-01-27 14:35 | CP.PCM.PN ---
<Raffy Lebron - Last Filed: 01/27/19 14:28> Subjective - Date & Time of Evaluation Date of Evaluation: 01/27/19 Time of Evaluation: 10:00 - Subjective Subjective: Raffy Lebron DO, PGY-1 Hospitalist Progress Note for Dr. Shania Forde Patient was seen and examined at bedside this AM. He reports his abdominal pain has returned and that he is now unable to tolerate liquids without abd pain/nausea. He continues to complain of persistent hiccups which are somewhat improved with reglan. Objective - Vital Signs/Intake and Output Vital Signs (last 24 hours): Temp Pulse Resp BP Pulse Ox 97.8 F 62 18 98/63 L 98 01/27/19 06:00 01/27/19 06:00 01/27/19 06:00 01/27/19 06:00 01/27/19 06:00 Intake and Output: 01/27/19 01/27/19 06:59 18:59 Intake Total 940 Balance 940 - Medications Medications: Current Medications Bisacodyl (Dulcolax) 10 mg RC DAILY PRN PRN Reason: Constipation Dextrose (Dextrose 50% Inj) 0 ml IV STAT PRN; Protocol PRN Reason: Hypoglycemia Protocol Dextrose (Dextrose 5% In Water 1000 Ml) 1,000 mls @ 0 mls/hr IV .Q0M PRN; Protocol PRN Reason: Hypoglycemia Protocol Sodium Chloride (Sodium Chloride 0.9%) 1,000 mls @ 125 mls/hr IV .Q8H DO Last Admin: 01/27/19 13:09 Dose: 125 mls/hr Insulin Detemir (Levemir) 30 unit SC HS [facility] Last Admin: 01/26/19 21:09 Dose: 30 units Insulin Human Lispro (Humalog Low) 0 units SC ACHS [facility]; Protocol Last Admin: 01/27/19 08:40 Dose: Not Given Insulin Human Lispro (Humalog) 10 units SC AC [facility] Last Admin: 01/27/19 13:10 Dose: 10 units Morphine Sulfate (Morphine) 2 mg IVP Q4H PRN PRN Reason: Pain, severe (8-10) Last Admin: 01/27/19 13:59 Dose: 2 mg Ondansetron HCl (Zofran Inj) 4 mg IVP Q6H PRN PRN Reason: Nausea/Vomiting Last Admin: 01/27/19 14:00 Dose: 4 mg Pantoprazole Sodium (Protonix Inj) 40 mg IVP DAILY DO Last Admin: 01/27/19 12:24 Dose: 40 mg Sucralfate (Carafate Oral Susp) 1 gm PO 0600,1600 DO Last Admin: 01/27/19 05:12 Dose: 1 gm Zolpidem Tartrate (Ambien) 5 mg PO HS PRN; Protocol PRN Reason: Insomnia Last Admin: 01/26/19 23:27 Dose: 5 mg - Labs Labs: 01/27/19 07:00 01/27/19 07:00 PT 12.6 SECONDS (9.4-12.5) H 01/24/19 13:00 INR 1.12 01/24/19 13:00 APTT 35.1 Seconds (26.9-38.3) 01/24/19 13:00 - Constitutional Appears: Non-toxic, No Acute Distress - Head Exam Head Exam: ATRAUMATIC, NORMOCEPHALIC - Eye Exam Eye Exam: EOMI, PERRL - ENT Exam ENT Exam: Mucous Membranes Moist - Neck Exam Neck Exam: Full ROM. absent: Lymphadenopathy, Tenderness - Respiratory Exam Respiratory Exam: Clear to Ausculation Bilateral, NORMAL BREATHING PATTERN. absent: Accessory Muscle Use, Rales, Rhonchi, Wheezes, Respiratory Distress - Cardiovascular Exam Cardiovascular Exam: REGULAR RHYTHM, RRR, +S1, +S2. absent: Gallop, Rubs, Mur mur - GI/Abdominal Exam GI & Abdominal Exam: Soft, Tenderness (diffuse tenderness to palpation, greatest RUQ), Normal Bowel Sounds. absent: Guarding - Extremities Exam Extremities Exam: Full ROM. absent: Pedal Edema - Back Exam Back Exam: NORMAL INSPECTION - Neurological Exam Neurological Exam: Alert, Awake, Oriented x3 - Psychiatric Exam Psychiatric exam: Normal Affect, Normal Mood - Skin Skin Exam: Dry, Intact, Warm Assessment and Plan - Assessment and Plan (Free Text) Assessment: 43 yo M with PMH of chronic pancreatitis (w/infected pseudocysts s/p gastrostomy with RANJAN in 2014), cirrhosis (complicated by gastric/splenic varices), splenic v thrombosis, Hep C (s/p treatment), poorly controlled DM2, and HLD presented to ED with worsening nausea/vomiting/abd pain. Plan: Intractable Abdominal Pain Likely 2/2 acute on chronic pancreatitis CTAP with abnormal pancreas which is difficult to differentiate chronic from acute findings Patient now having persistent abdominal pain and inability to tolerate liquids Informed patient again that he will need portal vein stenting otherwise his sx's are not expected to improve Patient also informed again that IR guided portal vein stenting is equivalent to surgical intervention Patient verbalized understanding but states he may request second opinion Continue periodic reglan, chlorpromazine PRN for hiccups Continue carafate Continue zofran, dulcolax PRN Do not advance diet at this time GI, HPB surgery following, all recs appreciated Chronic splenic v thrombosis Portal venous stenting recommended per HPB surgery recs Continue non-narcotic pain management GI, HPB surgery following, all recs appreciated Recurrent Hiccups Likely 2/2 acute on chronic portal v. thrombosis May continue periodic reglan, chlopromazine as needed F/u with GI whether additional agents can be used Hypertriglyceridemia May be 2/2 poorly controlled DM2 Basal insulin regimen increased to 30 u nightly Levels trended down since admission Endo following, all recs appreciated DM2 A1c this visit 13.8 Continue ISS - low Has persistent hyperglycemia despite increase in levemir F/u with endo on levemir dosing Endo following, all recs appreciated Chronic Hepatitis C S/p treatment with mavyret Constipation Dulcolax RC PRN DVT/GI PPX: SCD/protonix Full Code Clear liquid diet Monitor on med/surg Patient seen, examined with, and plan discussed with my attending Dr. Shania Lebron D.O. IM Resident PGY-1 Pager: [phone] <Maria Luisa Forde R - Last Filed: 01/27/19 16:11> Objective - Vital Signs/Intake and Output Vital Signs (last 24 hours): Temp Pulse Resp BP Pulse Ox 97.8 F 62 18 98/63 L 98 01/27/19 06:00 01/27/19 06:00 01/27/19 06:00 01/27/19 06:00 01/27/19 06:00 Intake and Output: 01/27/19 01/27/19 06:59 18:59 Intake Total 940 Balance 940 - Medications Medications: Current Medications Bisacodyl (Dulcolax) 10 mg RC DAILY PRN PRN Reason: Constipation Dextrose (Dextrose 50% Inj) 0 ml IV STAT PRN; Protocol PRN Reason: Hypoglycemia Protocol Home Med (Home Med) 1 unit PO TID [facility] Dextrose (Dextrose 5% In Water 1000 Ml) 1,000 mls @ 0 mls/hr IV .Q0M PRN; Protocol PRN Reason: Hypoglycemia Protocol Sodium Chloride (Sodium Chloride 0.9%) 1,000 mls @ 125 mls/hr IV .Q8H [facility] Last Admin: 01/27/19 13:09 Dose: 125 mls/hr Insulin Detemir (Levemir) 30 unit SC HS [facility] Last Admin: 01/26/19 21:09 Dose: 30 units Insulin Human Lispro (Humalog Low) 0 units SC ACHS [facility]; Protocol Last Admin: 01/27/19 08:40 Dose: Not Given Insulin Human Lispro (Humalog) 10 units SC AC [facility] Last Admin: 01/27/19 13:10 Dose: 10 units Morphine Sulfate (Morphine) 2 mg IVP Q4H PRN PRN Reason: Pain, severe (8-10) Last Admin: 01/27/19 13:59 Dose: 2 mg Ondansetron HCl (Zofran Inj) 4 mg IVP Q6H PRN PRN Reason: Nausea/Vomiting Last Admin: 01/27/19 14:00 Dose: 4 mg Pantoprazole Sodium (Protonix Inj) 40 mg IVP DAILY [facility] Last Admin: 01/27/19 12:24 Dose: 40 mg Sucralfate (Carafate Oral Susp) 1 gm PO 0600,1600 [facility] Last Admin: 01/27/19 05:12 Dose: 1 gm Zolpidem Tartrate (Ambien) 5 mg PO HS PRN; Protocol PRN Reason: Insomnia Last Admin: 01/26/19 23:27 Dose: 5 mg - Labs Labs: 01/27/19 07:00 01/27/19 07:00 PT 12.6 SECONDS (9.4-12.5) H 01/24/19 13:00 INR 1.12 01/24/19 13:00 APTT 35.1 Seconds (26.9-38.3) 01/24/19 13:00 Attending/Attestation - Attestation I have personally seen and examined this patient.: Yes I have fully participated in the care of the patient.: Yes I have reviewed all pertinent clinical information, including history, physical exam and plan: Yes Notes (Text): Patient seen and examined by me with resident at approximately 10:15AM on 9. Case including HPI, physical exam, and assessment and plan discussed with resident. Agree with above with following additions/corrections. Patient is a 43-year-old male with past medical history significant for chronic hepatitis C status post treatment, cirrhosis with gastric and splenic varices, chronic pancreatitis with pseudocysts, poorly controlled insulin-dependent type 2 diabetes, splenic vein thrombosis, chronic back pain, and hypertriglyceridemia that presented to the emergency room with nausea, vomiting, and abdominal pain. Patient states he is feeling ok. States he is still have the abdominal pain and hiccups. States the abdominal pain worsened a little after having 3 bowel mov ements. Patient is tolerating liquid diet and would like to be advanced. He denies any chest pain or shortness of breath. No palpitations. No headaches or dizziness. No fevers or chills. No dysuria. Patient states he does not want any procedures done during this hospital visit. Physical exam: General: Awake and alert lying in bed in no acute distress. HEENT: Normocephalic, atraumatic. Extraocular muscles intact. Pupils equal and reactive, no scleral icterus. Oropharynx is pink and moist. No pharyngeal erythema or exudate appreciated. Neck is supple. Cardiovascular: Regular rhythm. Normal S1 and S2. No murmurs, rubs, or gallops appreciated Pulmonary: Normal respiratory effort. No rhonchi, rales, or wheezing appreciated. Gastrointestinal: Soft, nondistended. Positive generalized tenderness, more prominent right mid and lower quadrants. Positive bowel sounds all 4 quadrants. No guarding. Musculoskeletal: Moves all extremities. No calf tenderness. No edema appreciated. Central nervous system: AAO x3. CN2-12 grossly intact. Dermatologic: Skin warm and dry. Assessment and plan: Patient is a 43-year-old male with past medical history significant for chronic hepatitis C status post treatment, cirrhosis with gastric and splenic varices, chronic pancreatitis with pseudocysts, poorly controlled insulin-dependent type 2 diabetes, splenic vein thrombosis, chronic back pain, and hypertriglyceridemia that presented to the emergency room with nausea, vomiting, and abdominal pain. 1. Abdominal pain likely secondary to acute on chronic pancreatitis with nausea and vomiting. Possible gastroparesis. Continue IV fluids. Advance diet as tolerated. Continue Zofran prn. Continue Carafate. Continue pain management. GI recommendations appreciated. 2. Leukocytosis. Likely reactive. Resolved. Continue to monitor. 3. Hypertriglyceridemia. Triglycerides downtrending. Endocrinology recommen dations appreciated. Continue to monitor. 4. Insulin-dependent type 2 diabetes with hyperglycemia. Endocrinology recommendations appreciated. Continue insulin sliding scale. Levemir changed to 30 units subcutaneous qHS. Continue Lispro AC. Continue to monitor Accu-Cheks. 5. Burning with urination. Resolved. UA negative for infection. 6. Chronic splenic vein thrombosis and gastric varcies. ?portal vein compression. GI recommendations appreciated. Hepatobiliary surgeon recommendations appreciated. Patient will need portal vein stent. IR consulted. However, patient now stating he does not want any procedures done during this hospital stay. 7. Hisotry of Hepatitis C. S/P Mavyret therapy. Pending Viral load. 8. Constipation. Resolved. Continue dulcolax suppository daily as needed. Case was discussed in detail with the patient regarding current diagnosis, study results, and treatment plan. All questions answered.
--- NOTE | 2019-01-27 15:14 | CP.PCM.PN ---
<LibraClairamna - Last Filed: 01/27/19 15:10> Subjective - Date & Time of Evaluation Date of Evaluation: 01/27/19 Time of Evaluation: 14:10 - Subjective Subjective: PGY-4 GI fellow progress note Patient lying in bed when seen this afternoon. He states abdominal pain is about the same, but he is tolerating diet. Reports a bowel movement the other day which was normal. Five-point review of systems negative other than stated above Objective - Vital Signs/Intake and Output Vital Signs (last 24 hours): Temp Pulse Resp BP Pulse Ox 97.8 F 62 18 98/63 L 98 01/27/19 06:00 01/27/19 06:00 01/27/19 06:00 01/27/19 06:00 01/27/19 06:00 Intake and Output: 01/27/19 01/27/19 06:59 18:59 Intake Total 940 Balance 940 - Medications Medications: Current Medications Bisacodyl (Dulcolax) 10 mg RC DAILY PRN PRN Reason: Constipation Dextrose (Dextrose 50% Inj) 0 ml IV STAT PRN; Protocol PRN Reason: Hypoglycemia Protocol Dextrose (Dextrose 5% In Water 1000 Ml) 1,000 mls @ 0 mls/hr IV .Q0M PRN; Protocol PRN Reason: Hypoglycemia Protocol Sodium Chloride (Sodium Chloride 0.9%) 1,000 mls @ 125 mls/hr IV .Q8H DO Last Admin: 01/27/19 13:09 Dose: 125 mls/hr Insulin Detemir (Levemir) 30 unit SC HS [facility] Last Admin: 01/26/19 21:09 Dose: 30 units Insulin Human Lispro (Humalog Low) 0 units SC ACHS [facility]; Protocol Last Admin: 01/27/19 08:40 Dose: Not Given Insulin Human Lispro (Humalog) 10 units SC AC [facility] Last Admin: 01/27/19 13:10 Dose: 10 units Morphine Sulfate (Morphine) 2 mg IVP Q4H PRN PRN Reason: Pain, severe (8-10) Last Admin: 01/27/19 13:59 Dose: 2 mg Ondansetron HCl (Zofran Inj) 4 mg IVP Q6H PRN PRN Reason: Nausea/Vomiting Last Admin: 01/27/19 14:00 Dose: 4 mg Pantoprazole Sodium (Protonix Inj) 40 mg IVP DAILY DO Last Admin: 01/27/19 12:24 Dose: 40 mg Sucralfate (Carafate Oral Susp) 1 gm PO 0600,1600 DO Last Admin: 01/27/19 05:12 Dose: 1 gm Zolpidem Tartrate (Ambien) 5 mg PO HS PRN; Protocol PRN Reason: Insomnia Last Admin: 01/26/19 23:27 Dose: 5 mg - Labs Labs: 01/27/19 07:00 01/27/19 07:00 PT 12.6 SECONDS (9.4-12.5) H 01/24/19 13:00 INR 1.12 01/24/19 13:00 APTT 35.1 Seconds (26.9-38.3) 01/24/19 13:00 - Constitutional Appears: Well, No Acute Distress - Head Exam Head Exam: ATRAUMATIC, NORMAL INSPECTION - ENT Exam ENT Exam: Mucous Membranes Moist. absent: Mucous Membranes Dry - Respiratory Exam Respiratory Exam: NORMAL BREATHING PATTERN. absent: Accessory Muscle Use - GI/Abdominal Exam GI & Abdominal Exam: Soft, Tenderness (tender to palpation in epigastrium), Normal Bowel Sounds. absent: Bruit, Distended, Firm, Guarding, Rigid, Mass Assessment and Plan - Assessment and Plan (Free Text) Assessment: 43yo male with PMHx significant for chronic pancreatitis 2/2 hypertriglyceridemia, pancreatic insufficiency, pancreatic pseudocysts with prior open resection of infected pseudocyst, HCV GT3a s/p therapy with Mavyret (SVR not documented), splenic vein thrombosis and gastric/splenic varices and DM who presented to the ED with complaint of abdominal pain. Pain possibly 2/2 recurrent exacerbation of chronic pancreatitis vs diabetic gastroparesis in the setting of uncontrolled DM (most recent A1c 13.5) -Acute exacerbation of acute pancreatitis -Hypertriglyceridemia -Pancreatic pseudocyst -Pancreatic insufficiency -Hiccups -HCV s/p tx with Mavyret, unknown SVR -Known splenic vein thrombosis and resultant gastric varices -Uncontrolled DM Plan: Patient plans to follow-up at [facility] for further treatment EGD/EUS with Dr. Aime Singh to use home Creon prescription while inpatient, order placed Increased rate of IV fluids to 125 mL/hr -Tight glycemic and triglyceride control -Endocrinology consulted -ADAT -Patient encouraged to abstain from tobacco/EtOH use Patient discussed with Dr. Renteria. Please see attestation for further recommendations/changes <Teresa Renteria - Last Filed: 01/27/19 15:26> Objective - Vital Signs/Intake and Output Vital Signs (last 24 hours): Temp Pulse Resp BP Pulse Ox 97.8 F 62 18 98/63 L 98 01/27/19 06:00 01/27/19 06:00 01/27/19 06:00 01/27/19 06:00 01/27/19 06:00 Intake and Output: 01/27/19 01/27/19 06:59 18:59 Intake Total 940 Balance 940 - Medications Medications: Current Medications Bisacodyl (Dulcolax) 10 mg RC DAILY PRN PRN Reason: Constipation Dextrose (Dextrose 50% Inj) 0 ml IV STAT PRN; Protocol PRN Reason: Hypoglycemia Protocol Home Med (Home Med) 1 unit PO TID [facility] Dextrose (Dextrose 5% In Water 1000 Ml) 1,000 mls @ 0 mls/hr IV .Q0M PRN; Protocol PRN Reason: Hypoglycemia Protocol Sodium Chloride (Sodium Chloride 0.9%) 1,000 mls @ 125 mls/hr IV .Q8H [facility] Last Admin: 01/27/19 13:09 Dose: 125 mls/hr Insulin Detemir (Levemir) 30 unit SC [facility] Last Admin: 01/26/19 21:09 Dose: 30 units Insulin Human Lispro (Humalog Low) 0 [facility]; Protocol Last Admin: 01/27/19 08:40 Dose: Not Given Insulin Human Lispro (Humalog) [address] [facility] Last Admin: 01/27/19 13:10 Dose: 10 units Morphine Sulfate (Morphine) 2 mg IVP Q4H PRN PRN Reason: Pain, severe (8-10) Last Admin: 01/27/19 13:59 Dose: 2 mg Ondansetron HCl (Zofran Inj) 4 mg IVP Q6H PRN PRN Reason: Nausea/Vomiting Last Admin: 01/27/19 14:00 Dose: 4 mg Pantoprazole Sodium (Protonix Inj) 40 mg IVP DAILY [facility] Last Admin: 01/27/19 12:24 Dose: 40 mg Sucralfate (Carafate Oral Susp) 1 gm PO 0600,1600 DO Last Admin: 01/27/19 05:12 Dose: 1 gm Zolpidem Tartrate (Ambien) 5 mg PO HS PRN; Protocol PRN Reason: Insomnia Last Admin: 01/26/19 23:27 Dose: 5 mg - Labs Labs: 01/27/19 07:00 01/27/19 07:00 PT 12.6 SECONDS (9.4-12.5) H 01/24/19 13:00 INR 1.12 01/24/19 13:00 APTT 35.1 Seconds (26.9-38.3) 01/24/19 13:00 Attending/Attestation - Attestation I have fully participated in the care of the patient.: Yes I have reviewed all pertinent clinical information, including history, physical exam and plan: Yes Notes (Text): 01/27/19 15:24 Ok to advance to bland diet. Spoke with the pt regarding further management. Pt and his sister have chosen to have his care continued at [facility] with prior lead web application developer (Dr. Olguin) and surgeon (Dr. Jimenez). For this admission, recommend continued treatment for pancreatitis. Continue IVF at 125 cc/hr, pain control. Encourage ambulation.
--- NOTE | 2019-01-27 16:35 | PN ---
DATE: 01/27/2019 In room 573. SUBJECTIVE: This is a 43-year-old male with recent acute pancreatitis and also concomitant hyperglycemic accelerations and is now being followed closely for metabolic management. His glycemic levels are fluctuating, but improved and the glucose values have ranged from 107 to 209 and 246 mg/dl. His chemistry showed a BUN of 3, sodium 139, potassium 3.4, chloride 106, CO2 of 28, glucose 106 and creatinine 0.6. His latest triglycerides are down to 373 mg/dL with a lipase level of 185. ASSESSMENT: This is a 43-year-old male with uncontrolled and decompensated type 2 insulin-requiring diabetes with concomitant acute recurrent pancreatitis and is now improving clinically and metabolically as noted thereof. PLAN OF MANAGEMENT: We will continue the modified basal and bolus insulin regimen as given with Humalog given as 10 units three times a day before meals as ordered. We will continue also the basal insulin given as Levemir at 30 units subcu at bedtime daily as given. We will continue the low-dose correction scale using Humalog insulin as ordered. We will also lower his IV hydration with half-normal saline given as 100 mL/hour as ordered. We will obtain serial chemistries and supplement accordingly as needed. We will follow and we will follow and advise accordingly. Gaby Saavedra MD
[2019-01-27] MEDS: CREON PO SCH (18:08)
[2019-01-27] MEDS: Insulin Detemir 100 units/ml Vial (Levemir) SC SCH (22:53)
[2019-01-28] MEDS: Morphine 2 mg/ml ISec IVP PRN ×3 (03:18→15:54)
[2019-01-28] MEDS: Sucralfate 1 gm/10 ml Oral Susp UD PO SCH ×2 (06:16→17:20)
[2019-01-28] MEDS ORDERED: Magnesium Sulfate 2 gm/50 ml 2 GM/50 ML BAG IVPB ONE (06:54)
[2019-01-28] MEDS ORDERED: Potassium Chloride 40 mEq/30 ml LIQ UD PO ONE (06:54)
[2019-01-28] MEDS: Insulin Lispro (humaLOG) LOW Coverage SC SCH ×4 (07:29→17:22)
[2019-01-28 07:39] LABS: BASO # 0.04 K/mm3 (0.0-2.0); EOS # 0.1 (0.0-0.7); EOS % 2.6 % (1.5-5.0); HEMOGLOBIN 12.1 g/dL (14.0-18.0); LYMPH # 1.8 (1.2-3.4); LYMPH % 42.5 % (22.0-35.0); MEAN CELL VOLUME 77.3 fl (80.0-105.0); MEAN CORPUSCULAR HEMOGLOBIN 25.9 pg (25.0-35.0); MEAN CORPUSCULAR HGB CONC 33.5 g/dl (31.0-37.0); MEAN PLATELET VOLUME 9.9 fl (7.0-11.0); MONO # 0.2 (0.1-0.6); MONO % 4.5 % (1.0-6.0); RBC 4.67 10^6/uL (3.5-6.1); RED CELL DISTRIBUTION WIDTH 14.3 % (11.5-14.5); WHITE BLOOD COUNT 4.2 10^3/uL (4.5-11.0)
[2019-01-28] MEDS: Sodium Chloride 0.9% 1,000 ML IV SCH ×2 (08:00→10:01)
[2019-01-28 08:03] LABS: ALB/GLOB RATIO 1.1 (1.1-1.8); ALBUMIN 3.1 g/dL (3.0-4.8); ALT/SGPT 21 U/L (7-56); AST/SGOT 17 U/L (17-59); BLOOD UREA NITROGEN 6 mg/dL (7-21); CALCIUM 8.5 mg/dL (8.4-10.5); GFR NON-AFRICAN AMERICAN > 60; HDL CHOLESTEROL 16 mg/dL (29-60); LIPASE 29 U/L (23-300)
[2019-01-28 08:14] LABS: LDL CHOLESTEROL 75 mg/dL (0-129)
[2019-01-28] MEDS ORDERED: Insulin Detemir 100 units/ml Vial (Levemir) SC SCH ×2 (09:17→22:00)
[2019-01-28] MEDS: Insulin Lispro 1 UNITS/0.01 ML SC SCH (09:29)
[2019-01-28] MEDS: CREON PO SCH ×4 (09:32→17:20)
--- NOTE | 2019-01-28 09:46 | CP.PCM.PN ---
<Quinten Au - Last Filed: 01/28/19 09:57> Subjective - Date & Time of Evaluation Date of Evaluation: 01/28/19 Time of Evaluation: 08:00 - Subjective Subjective: PGY6 GI Fellow Progress Note Patient seen and examined bedside this morning. The patient states abdominal pain has improved greatly and he denies any difficulty tolerating diet. No events overnight. 12 system ROS performed and negative except where stated Objective - Vital Signs/Intake and Output Vital Signs (last 24 hours): Temp Pulse Resp BP Pulse Ox 97.8 F 58 L 18 134/80 99 01/27/19 22:00 01/27/19 22:00 01/27/19 22:00 01/27/19 22:00 01/27/19 22:00 - Medications Medications: Current Medications Bisacodyl (Dulcolax) 10 mg RC DAILY PRN PRN Reason: Constipation Dextrose (Dextrose 50% Inj) 0 ml IV STAT PRN; Protocol PRN Reason: Hypoglycemia Protocol Fenofibrate (Tricor) 145 mg PO DAILY [facility] Home Med (Home Med) 2 unit PO WM [facility] Last Admin: 01/28/19 09:32 Dose: 2 unit Dextrose (Dextrose 5% In Water 1000 Ml) 1,000 mls @ 0 mls/hr IV .Q0M PRN; Protocol PRN Reason: Hypoglycemia Protocol Sodium Chloride (Sodium Chloride 0.9%) 1,000 mls @ 125 mls/hr IV .Q8H [facility] Last Admin: 01/28/19 08:00 Dose: 125 mls/hr Insulin Detemir (Levemir) 32 unit SC HS [facility] Insulin Human Lispro (Humalog Low) 0 units SC ACHS [facility]; Protocol Last Admin: 01/28/19 07:29 Dose: Not Given Insulin Human Lispro (Humalog) 10 units SC AC [facility] Last Admin: 01/28/19 09:29 Dose: 10 units Morphine Sulfate (Morphine) 2 mg IVP Q4H PRN PRN Reason: Pain, severe (8-10) Last Admin: 01/28/19 09:27 Dose: 2 mg Ondansetron HCl (Zofran Inj) 4 mg IVP Q6H PRN PRN Reason: Nausea/Vomiting Last Admin: 01/28/19 09:26 Dose: 4 mg Pantoprazole Sodium (Protonix Inj) 40 mg IVP DAILY [facility] Last Admin: 01/28/19 09:24 Dose: 40 mg Sucralfate (Carafate Oral Susp) 1 gm PO 0600,1600 DO Last Admin: 01/28/19 06:16 Dose: 1 gm Zolpidem Tartrate (Ambien) 5 mg PO HS PRN; Protocol PRN Reason: Insomnia Last Admin: 01/27/19 22:53 Dose: 5 mg - Labs Labs: 01/28/19 07:20 01/28/19 07:20 PT 12.6 SECONDS (9.4-12.5) H 01/24/19 13:00 INR 1.12 01/24/19 13:00 APTT 35.1 Seconds (26.9-38.3) 01/24/19 13:00 - Constitutional Appears: Non-toxic, No Acute Distress - Eye Exam Eye Exam: EOMI, PERRL - ENT Exam ENT Exam: Mucous Membranes Moist - Respiratory Exam Respiratory Exam: Clear to Ausculation Bilateral. absent: Rales, Rhonchi, Wheezes - Cardiovascular Exam Cardiovascular Exam: RRR, +S1, +S2 - GI/Abdominal Exam GI & Abdominal Exam: Soft, Tenderness (mild epigastric pain), Normal Bowel Sounds. absent: Distended, Firm, Guarding, Rigid, Organomegaly - Extremities Exam Extremities Exam: Normal Inspection. absent: Pedal Edema - Neurological Exam Neurological Exam: Alert, Awake, Oriented x3 - Psychiatric Exam Psychiatric exam: Normal Affect, Normal Mood - Skin Skin Exam: Dry, Warm Assessment and Plan - Assessment and Plan (Free Text) Assessment: Patient is a 43yo male with PMHx significant for chronic pancreatitis 2/2 hypertriglyceridemia, pancreatic insufficiency, pancreatic pseudocysts with prior open resection of infected pseudocyst, HCV GT3a s/p therapy with Mavyret (SVR not documented), splenic vein thrombosis and gastric/splenic varices and DM who presented to the ED with complaint of abdominal pain -Acute exacerbation of acute pancreatitis -Hypertriglyceridemia -Pancreatic pseudocyst -Pancreatic insufficiency -HCV s/p tx with Mavyret, unknown SVR -Known splenic vein thrombosis and resultant gastric varices -Uncontrolled DM Plan: -Pain improved and tolerating diet without issue -Continue pancreatic enzyme supplementation -Patient to follow up outpatient with primary technical training instructor, Dr Salomon ([facility]) -Tight glycemic and triglyceride control -Endocrinology consult appreciated -Check HCV viral load to confirm SVR s/p Mavyret therapy, pending -Patient encouraged to abstain from tobacco/EtOH use -No further recommendations at this time; please reconsult as needed <Teresa Renteria - Last Filed: 01/28/19 10:50> Objective - Vital Signs/Intake and Output Vital Signs (last 24 hours): Temp Pulse Resp BP Pulse Ox 97.8 F 58 L 18 134/80 99 01/27/19 22:00 01/27/19 22:00 01/27/19 22:00 01/27/19 22:00 01/27/19 22:00 Intake and Output: 01/28/19 01/28/19 06:59 18:59 Intake Total 940 Balance 940 - Medications Medications: Current Medications Bisacodyl (Dulcolax) 10 mg RC DAILY PRN PRN Reason: Constipation Dextrose (Dextrose 50% Inj) 0 ml IV STAT PRN; Protocol PRN Reason: Hypoglycemia Protocol Fenofibrate (Tricor) 145 mg PO DAILY [facility] Last Admin: 01/28/19 09:47 Dose: 145 mg Home Med (Home Med) 2 unit PO WM [facility] Last Admin: 01/28/19 09:32 Dose: 2 unit Dextrose (Dextrose 5% In Water 1000 Ml) 1,000 mls @ 0 mls/hr IV .Q0M PRN; Protocol PRN Reason: Hypoglycemia Protocol Sodium Chloride (Sodium Chloride 0.9%) 1,000 mls @ 125 mls/hr IV .Q8H [facility] Last Admin: 01/28/19 10:01 Dose: 125 mls/hr Insulin Detemir (Levemir) 32 unit SC [facility] Insulin Human Lispro (Humalog Low) 0 units SC ACHS [facility]; Protocol Last Admin: 01/28/19 10:03 Dose: Not Given Insulin Human Lispro (Humalog) 10 units SC AC [facility] Last Admin: 01/28/19 09:29 Dose: 10 units Morphine Sulfate (Morphine) 2 mg IVP Q4H PRN PRN Reason: Pain, severe (8-10) Last Admin: 01/28/19 09:27 Dose: 2 mg Ondansetron HCl (Zofran Inj) 4 mg IVP Q6H PRN PRN Reason: Nausea/Vomiting Last Admin: 01/28/19 09:26 Dose: 4 mg Pantoprazole Sodium (Protonix Inj) 40 mg IVP DAILY DO Last Admin: 01/28/19 09:24 Dose: 40 mg Sucralfate (Carafate Oral Susp) 1 gm PO 0600,1600 DO Last Admin: 01/28/19 06:16 Dose: 1 gm Zolpidem Tartrate (Ambien) 5 mg PO HS PRN; Protocol PRN Reason: Insomnia Last Admin: 01/27/19 22:53 Dose: 5 mg - Labs Labs: 01/28/19 07:20 01/28/19 07:20 PT 12.6 SECONDS (9.4-12.5) H 01/24/19 13:00 INR 1.12 01/24/19 13:00 APTT 35.1 Seconds (26.9-38.3) 01/24/19 13:00 Attending/Attestation - Attestation I have fully participated in the care of the patient.: Yes I have reviewed all pertinent clinical information, including history, physical exam and plan: Yes Notes (Text): 01/28/19 10:50 I have reviewed pt care with the GI fellow. Pt tolerating diet and pain greatly improved. Can likely be d/sara with outpt GI and surgery f/u at [facility].
[2019-01-28] MEDS ORDERED: Insulin Lispro 1 UNITS/0.01 ML SC SCH ×2 (11:02→16:30)
[2019-01-28] MEDS ORDERED: POLYETHYLENE GLYCOL 3350 17 GM/Dose PACKET PO SCH (11:15)
--- NOTE | 2019-01-28 13:49 | CP.PCM.DIS ---
<AugustineJavier mondragon - Last Filed: 01/28/19 16:09> Provider - Provider Date of Admission: 01/24/19 15:06 Attending physician: Maria Luisa Forde, Consults: 01/24/19 16:15 Endocrinology Consult Routine Comment: Consulting Provider: Gaby Saavedra Consulting Physician: Gaby Saavedra Reason for Consult: hypertriglyceridemia, DM with hyperglycemia 01/24/19 16:22 Transition In Care/Readmission Reduction Routine Comment: Physician Instructions: Reason For Exam: Protocol 01/24/19 16:27 Physician Consult Routine Comment: Consulting Provider: Teresa Renteria Consulting Physician: Teresa Renteria Reason for Consult: acute on chronic pancreatitis 01/25/19 15:07 Physician Consult Routine Comment: Consulting Provider: Corbin Oates Consulting Physician: Corbin Oates Reason for Consult: portal venous stricture. needs stent 01/25/19 17:35 Physician Consult Routine Comment: Consulting Provider: Salinas Zhang Consulting Physician: Salinas Zhang Reason for Consult: cirrhosis w/gastric/splenic varices, splenic v thrombosis Time Spent in preparation of Discharge (in minutes): 45 Hospital Course - Lab Results Lab Results: Most Recent Lab Values WBC 4.2 10^3/uL (4.5-11.0) L 01/28/19 07:20 RBC 4.67 10^6/uL (3.5-6.1) 01/28/19 07:20 Hgb 12.1 g/dL (14.0-18.0) L 01/28/19 07:20 Hct 36.1 % (42.0-52.0) L 01/28/19 07:20 MCV 77.3 fl (80.0-105.0) L 01/28/19 07:20 MCH 25.9 pg (25.0-35.0) 01/28/19 07:20 MCHC 33.5 g/dl (31.0-37.0) 01/28/19 07:20 RDW 14.3 % (11.5-14.5) 01/28/19 07:20 Plt Count 88 10^3/uL (120.0-450.0) L 01/28/19 07:20 MPV 9.9 fl (7.0-11.0) 01/28/19 07:20 Neut % (Auto) 49.4 % (50.0-68.0) L 01/28/19 07:20 Lymph % (Auto) 42.5 % (22.0-35.0) H 01/28/19 07:20 Crenshaw % (Auto) 4.5 % (1.0-6.0) 01/28/19 07:20 Eos % (Auto) 2.6 % (1.5-5.0) 01/28/19 07:20 Baso % (Auto) 1.0 % (0.0-3.0) 01/28/19 07:20 Lymph # (Auto) 1.8 (1.2-3.4) 01/28/19 07:20 Crenshaw # (Auto) 0.2 (0.1-0.6) 01/28/19 07:20 Eos # (Auto) 0.1 (0.0-0.7) 01/28/19 07:20 Baso # (Auto) 0.04 K/mm3 (0.0-2.0) 01/28/19 07:20 Absolute Neuts (auto) 2.07 (1.4-6.5) 01/28/19 07:20 PT 12.6 SECONDS (9.4-12.5) H 01/24/19 13:00 INR 1.12 01/24/19 13:00 APTT 35.1 Seconds (26.9-38.3) 01/24/19 13:00 pO2 109 mm/Hg (30-55) H 01/24/19 17:13 VBG pH 7.28 (7.32-7.43) L 01/24/19 17:13 VBG pCO2 49.0 (40-60) 01/24/19 17:13 VBG HCO3 23.0 mmol/l (21-28) 01/24/19 17:13 VBG Total CO2 24.5 mmol.L (22-28) 01/24/19 17:13 VBG O2 Sat (Calc) 98.3 % (40-65) H 01/24/19 17:13 VBG Base Excess -4.1 mmol/L (0.0-2.0) L 01/24/19 17:13 VBG Potassium 4.3 mmol/L (3.6-5.2) 01/24/19 17:13 Sodium 139.0 mmol/L (132-148) 01/24/19 17:13 Chloride 103.0 mmol/L (98-107) 01/24/19 17:13 Glucose 314 mg/dl (75-110) H 01/24/19 17:13 Lactate 2.9 mmol/L (0.7-2.1) H 01/24/19 17:13 FiO2 21.0 % 01/24/19 17:13 Crit Value Called To Harinder bullard 01/24/19 17:13 Crit Value Called By Atc 01/24/19 17:13 Blood Gas Notified Time 1730 01/24/19 17:13 Sodium 134 mmol/L (132-148) 01/28/19 07:20 Potassium 4.1 mmol/L (3.6-5.0) 01/28/19 07:20 Chloride 103 mmol/L (98-107) 01/28/19 07:20 Carbon Dioxide 27 mmol/L (21-33) 01/28/19 07:20 Anion Gap 8 (10-20) L 01/28/19 07:20 BUN 6 mg/dL (7-21) L 01/28/19 07:20 Creatinine 0.6 mg/dl (0.8-1.5) L 01/28/19 07:20 Est GFR ( Amer) > 60 01/28/19 07:20 Est GFR (Non-Af Amer) > 60 01/28/19 07:20 POC Glucose (mg/dL) 192 mg/dL (65-110) H 01/28/19 11:37 Random Glucose 265 mg/dL (70-110) H 01/28/19 07:20 Hemoglobin A1c 13.8 % (4.2-6.5) H 01/25/19 07:15 Calcium 8.5 mg/dL (8.4-10.5) 01/28/19 07:20 Phosphorus 3.3 mg/dL (2.5-4.5) 01/28/19 07:20 Magnesium 1.7 mg/dL (1.7-2.2) 01/28/19 07:20 Total Bilirubin 0.5 mg/dL (0.2-1.3) 01/28/19 07:20 Direct Bilirubin 0.5 mg/dL (0.0-0.4) H 01/24/19 13:00 AST 17 U/L (17-59) 01/28/19 07:20 ALT 21 U/L (7-56) 01/28/19 07:20 Alkaline Phosphatase 67 U/L (38-126) 01/28/19 07:20 Troponin I 0.01 ng/mL 01/24/19 13:18 Total Protein 6.0 g/dL (5.8-8.3) 01/28/19 07:20 Albumin 3.1 g/dL (3.0-4.8) 01/28/19 07:20 Globulin 2.9 gm/dL 01/28/19 07:20 Albumin/Globulin Ratio 1.1 (1.1-1.8) 01/28/19 07:20 Triglycerides 473 mg/dL (35-160) H 01/28/19 07:20 Cholesterol 143 mg/dL (130-200) 01/28/19 07:20 LDL Cholesterol Direct 75 mg/dL (0-129) 01/28/19 07:20 HDL Cholesterol 16 mg/dL (29-60) L 01/28/19 07:20 Lipase 29 U/L (23-300) 01/28/19 07:20 TSH 3rd Generation 0.29 mIU/mL (0.46-4.68) L 01/25/19 07:15 Venous Blood Potassium 4.3 mmol/L (3.6-5.2) 01/24/19 17:13 Urine Color Yellow (YELLOW) 01/25/19 06:20 Urine Appearance Clear (CLEAR) 01/25/19 06:20 Urine pH 6.0 (4.7-8.0) 01/25/19 06:20 Ur Specific Donnelly 1.020 (1.005-1.035) 01/25/19 06:20 Urine Protein Negative mg/dL (<30 mg/dL) 01/25/19 06:20 Urine Glucose (UA) >=1000 mg/dL (NEGATIVE) 01/25/19 06:20 Urine Ketones >=80 mg/dL (NEGATIVE) 01/25/19 06:20 Urine Blood Negative (NEGATIVE) 01/25/19 06:20 Urine Nitrate Negative (NEGATIVE) 01/25/19 06:20 Urine Bilirubin Negative (NEGATIVE) 01/25/19 06:20 Urine Urobilinogen 0.2 E.U./dL (<1 E.U./dL) 01/25/19 06:20 Ur Leukocyte Esterase Negative Elba/uL (NEGATIVE) 01/25/19 06:20 - Hospital Course Hospital Course: 43 year old male with a past medical history of HCV, Arthritis, chronic pancreatitis, pancreatic pseudocysts, splenic vein thrombosis, DM, and hypertriglyceridemia who presented to the ED with abdominal pain, nausea, vomiting x3 days. Patient admitted for acute on chronic pancreatitis. CT abdomen/. pancreatic pseudocyst. mild pancreatic inflammation. Pain controlled with morphine 2 mg q4 prn, zofran for nausea and IVF fluids. Patient had mild leukocytosis, afebrile. AST/ALT/ALP/Lipase /95/160. Hepatobiliary surgeon was consulted, Dr Zhang, abdominal pain due to venous congestion of gastric, splenic, mesenteric veins, from 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 Patient also has splenic vein thrombosis. Patient is following up with [facility] and wants to continue his treatment there. Patient has DM2 with HgA1c 13.8, placed on ISS-low. EKG: bradycardia@53, Incomplete RBBB. No ST-T changes. No QT prolongation. Lipid profile, CHOL 165 TG 373 LDL 50 HDL 21. On the day of discharge, abdominal pain improved, no nausea/vomiting. Patient is hemodynamically stable, afebrile. He agreed to follow up with his banana expert at [facility]. Discharge Exam - Head Exam Head Exam: ATRAUMATIC, NORMAL INSPECTION - Eye Exam Eye Exam: EOMI, Normal appearance, PERRL Pupil Exam: NORMAL ACCOMODATION, PERRL - ENT Exam ENT Exam: Normal Exam, Normal Oropharynx - Respiratory Exam Respiratory Exam: Clear to PA & Lateral, NORMAL BREATHING PATTERN. absent: Rhonchi, Wheezes - Cardiovascular Exam Cardiovascular Exam: REGULAR RHYTHM, +S1, +S2. absent: Gallop, Rubs - GI/Abdominal Exam GI & Abdominal Exam: Normal Bowel Sounds, Soft. absent: Distended, Guarding, Mass, Rebound, Rigid, Tenderness - Extremities Exam Extremities exam: full ROM, normal capillary refill, pedal pulses present - Back Exam Back exam: FULL ROM - Neurological Exam Neurological exam: Alert, CN II-XII Intact, Normal Gait, Oriented x3, Reflexes Normal - Psychiatric Exam Psychiatric exam: Normal Affect, Normal Mood - Skin Skin Exam: Dry, Intact, Normal Color, Warm Discharge Plan - Discharge Medications Prescriptions: Docusate [Colace] 100 mg PO BID PRN #28 cap PRN Reason: Constipation Gemfibrozil [Lopid] 600 mg PO BID #28 tab Insulin Detemir [Levemir] 32 unit SC HS #500 unit Insulin Lispro [Humalog Marck Kwikpen] 10 unit SQ AC #5 ins.pen.[id number] - Follow Up Plan Condition: GUARDED Disposition: HOME/ ROUTINE Instructions: Type 2 Diabetes, High Blood Pressure in Adults, Acid Reflux (Gastroesophageal Reflux Disease), Adult (DC), Chronic Pancreatitis (DC) Additional Instructions: Follow up with your primary care doctor Rai in 3-5 days. Follow up with your GI doctor Aime and Dr Borja at [facility] for portal vein compression, in 3-5 days, Hepatitis C, cirrhosis. You are given 2 new prescriptions: Gemfibrozil 600 mg 1 tablet two times a day and colace 100 mg 1 tablet two times a day as needed for constipation. Resume all your other home medications. Return to the Emergency room for any new or concerning symptoms. Referrals: Alexandru Salomon MD [Non-Staff] - Herbert Ruiz MD [Medical Doctor] - <Ayaz Gallo - Last Filed: 01/28/19 18:23> Provider - Provider Date of Admission: 01/24/19 15:06 Attending physician: Maria Luisa Forde DO Consults: 01/24/19 16:15 Endocrinology Consult Routine Comment: Consulting Provider: Gaby Saavedra Consulting Physician: Gaby Saavedra Reason for Consult: hypertriglyceridemia, DM with hyperglycemia 01/24/19 16:22 Transition In Care/Readmission Reduction Routine Comment: Physician Instructions: Reason For Exam: Protocol 01/24/19 16:27 Physician Consult Routine Comment: Consulting Provider: Teresa Renteria Consulting Physician: Teresa Renteria Reason for Consult: acute on chronic pancreatitis 01/25/19 15:07 Physician Consult Routine Comment: Consulting Provider: Corbin Oates Consulting Physician: Corbin Oates Reason for Consult: portal venous stricture. needs stent 01/25/19 17:35 Physician Consult Routine Comment: Consulting Provider: Salinas Zhang Consulting Physician: Salinas Zhang Reason for Consult: cirrhosis w/gastric/splenic varices, splenic v thrombosis Hospital Course - Lab Results Lab Results: Most Recent Lab Values WBC 4.2 10^3/uL (4.5-11.0) L 01/28/19 07:20 RBC 4.67 10^6/uL (3.5-6.1) 01/28/19 07:20 Hgb 12.1 g/dL (14.0-18.0) L 01/28/19 07:20 Hct 36.1 % (42.0-52.0) L 01/28/19 07:20 MCV 77.3 fl (80.0-105.0) L 01/28/19 07:20 MCH 25.9 pg (25.0-35.0) 01/28/19 07:20 MCHC 33.5 g/dl (31.0-37.0) 01/28/19 07:20 RDW 14.3 % (11.5-14.5) 01/28/19 07:20 Plt Count 88 10^3/uL (120.0-450.0) L 01/28/19 07:20 MPV 9.9 fl (7.0-11.0) 01/28/19 07:20 Neut % (Auto) 49.4 % (50.0-68.0) L 01/28/19 07:20 Lymph % (Auto) 42.5 % (22.0-35.0) H 01/28/19 07:20 Crenshaw % (Auto) 4.5 % (1.0-6.0) 01/28/19 07:20 Eos % (Auto) 2.6 % (1.5-5.0) 01/28/19 07:20 Baso % (Auto) 1.0 % (0.0-3.0) 01/28/19 07:20 Lymph # (Auto) 1.8 (1.2-3.4) 01/28/19 07:20 Crenshaw # (Auto) 0.2 (0.1-0.6) 01/28/19 07:20 Eos # (Auto) 0.1 (0.0-0.7) 01/28/19 07:20 Baso # (Auto) 0.04 K/mm3 (0.0-2.0) 01/28/19 07:20 Absolute Neuts (auto) 2.07 (1.4-6.5) 01/28/19 07:20 PT 12.6 SECONDS (9.4-12.5) H 01/24/19 13:00 INR 1.12 01/24/19 13:00 APTT 35.1 Seconds (26.9-38.3) 01/24/19 13:00 pO2 109 mm/Hg (30-55) H 01/24/19 17:13 VBG pH 7.28 (7.32-7.43) L 01/24/19 17:13 VBG pCO2 49.0 (40-60) 01/24/19 17:13 VBG HCO3 23.0 mmol/l (21-28) 01/24/19 17:13 VBG Total CO2 24.5 mmol.L (22-28) 01/24/19 17:13 VBG O2 Sat (Calc) 98.3 % (40-65) H 01/24/19 17:13 VBG Base Excess -4.1 mmol/L (0.0-2.0) L 01/24/19 17:13 VBG Potassium 4.3 mmol/L (3.6-5.2) 01/24/19 17:13 Sodium 139.0 mmol/L (132-148) 01/24/19 17:13 Chloride 103.0 mmol/L (98-107) 01/24/19 17:13 Glucose 314 mg/dl (75-110) H 01/24/19 17:13 Lactate 2.9 mmol/L (0.7-2.1) H 01/24/19 17:13 FiO2 21.0 % 01/24/19 17:13 Crit Value Called To Harinder bullard 01/24/19 17:13 Crit Value Called By Atc 01/24/19 17:13 Blood Gas Notified Time 1730 01/24/19 17:13 Sodium 134 mmol/L (132-148) 01/28/19 07:20 Potassium 4.1 mmol/L (3.6-5.0) 01/28/19 07:20 Chloride 103 mmol/L (98-107) 01/28/19 07:20 Carbon Dioxide 27 mmol/L (21-33) 01/28/19 07:20 Anion Gap 8 (10-20) L 01/28/19 07:20 BUN 6 mg/dL (7-21) L 01/28/19 07:20 Creatinine 0.6 mg/dl (0.8-1.5) L 01/28/19 07:20 Est GFR ( Amer) > 60 01/28/19 07:20 Est GFR (Non-Af Amer) > 60 01/28/19 07:20 POC Glucose (mg/dL) 212 mg/dL (65-110) H 01/28/19 16:27 Random Glucose 265 mg/dL (70-110) H 01/28/19 07:20 Hemoglobin A1c 13.8 % (4.2-6.5) H 01/25/19 07:15 Calcium 8.5 mg/dL (8.4-10.5) 01/28/19 07:20 Phosphorus 3.3 mg/dL (2.5-4.5) 01/28/19 07:20 Magnesium 1.7 mg/dL (1.7-2.2) 01/28/19 07:20 Total Bilirubin 0.5 mg/dL (0.2-1.3) 01/28/19 07:20 Direct Bilirubin 0.5 mg/dL (0.0-0.4) H 01/24/19 13:00 AST 17 U/L (17-59) 01/28/19 07:20 ALT 21 U/L (7-56) 01/28/19 07:20 Alkaline Phosphatase 67 U/L (38-126) 01/28/19 07:20 Troponin I 0.01 ng/mL 01/24/19 13:18 Total Protein 6.0 g/dL (5.8-8.3) 01/28/19 07:20 Albumin 3.1 g/dL (3.0-4.8) 01/28/19 07:20 Globulin 2.9 gm/dL 01/28/19 07:20 Albumin/Globulin Ratio 1.1 (1.1-1.8) 01/28/19 07:20 Triglycerides 473 mg/dL (35-160) H 01/28/19 07:20 Cholesterol 143 mg/dL (130-200) 01/28/19 07:20 LDL Cholesterol Direct 75 mg/dL (0-129) 01/28/19 07:20 HDL Cholesterol 16 mg/dL (29-60) L 01/28/19 07:20 Lipase 29 U/L (23-300) 01/28/19 07:20 TSH 3rd Generation 0.29 mIU/mL (0.46-4.68) L 01/25/19 07:15 Venous Blood Potassium 4.3 mmol/L (3.6-5.2) 01/24/19 17:13 Urine Color Yellow (YELLOW) 01/25/19 06:20 Urine Appearance Clear (CLEAR) 01/25/19 06:20 Urine pH 6.0 (4.7-8.0) 01/25/19 06:20 Ur Specific Donnelly 1.020 (1.005-1.035) 01/25/19 06:20 Urine Protein Negative mg/dL (<30 mg/dL) 01/25/19 06:20 Urine Glucose (UA) >=1000 mg/dL (NEGATIVE) 01/25/19 06:20 Urine Ketones >=80 mg/dL (NEGATIVE) 01/25/19 06:20 Urine Blood Negative (NEGATIVE) 01/25/19 06:20 Urine Nitrate Negative (NEGATIVE) 01/25/19 06:20 Urine Bilirubin Negative (NEGATIVE) 01/25/19 06:20 Urine Urobilinogen 0.2 E.U./dL (<1 E.U./dL) 01/25/19 06:20 Ur Leukocyte Esterase Negative Elba/uL (NEGATIVE) 01/25/19 06:20 Attending/Attestation - Attestation I have personally seen and examined this patient.: Yes I have fully participated in the care of the patient.: Yes I have reviewed all pertinent clinical information, including history, physical exam and plan: Yes Notes (Text): Attending note; Patient seen and examined with resident. Abdominal pain improved significantly. denies any nausea, vomiting. tolerating low-fat diet. Patient is a 43-year-old male with past medical history significant for chronic hepatitis C status post treatment, cirrhosis with gastric and splenic varices, chronic pancreatitis with pseudocysts, poorly controlled insulin-dependent type 2 diabetes, splenic vein thrombosis, chronic back pain, and hypertriglyceridemia that presented to the emergency room with nausea, vomiting, and abdominal pain. 1. Abdominal pain; secondary to acute on chronic pancreatitis. Treated with IV fluids, pain medications currently started on. Low-fat low-cholesterol diet. Tolerating well. Denies any nausea and vomiting. GI evaluation appreciated. 2. Hypertriglyceridemia. Triglycerides downtrending. Endocrinology recommendations appreciated. Continue to monitor. 3. Insulin-dependent type 2 diabetes with hyperglycemia. Endocrinology recommendations appreciated. Continue Levemir and Lispro AC. 4. Chronic splenic vein thrombosis and gastric varcies. possible portal vein compression secondary to recurrent inflammation /pseudocyst at the head opf the pancreas. GI recommendations appreciated. Hepatobiliary surgeon recommendations appreciated. Patient will need portal vein stent. However, patient now stating he does not want any procedures done during this hospital stay. Patient wants to get his treatment continued in [facility] since he has complicated surgical history. Needs EUS and surgery vs IR eval in [facility]. 5. Hisotry of Hepatitis C. S/P Mavyret therapy. viral load pending. discharge home today. Follow up with [facility] in 1 week. Needs GI and surgery evaluation. Diagnosis, treatment options discussed with patient in detail. Follow up with PMD Dr. Rai Mcleod. 01/28/19 18:22
[2019-01-28] MEDS: Omega-3-Acid Ethyl Esters 1 GM Cap PO SCH ×2 (15:18→17:22)
[2019-01-28 15:35] VITALS: BP 137/82; PULSE 63; RESP 20; TEMP 98.4; O2SAT 98
--- NOTE | 2019-01-29 08:42 | PN ---
DATE: 01/28/2019 ENDOCRINOLOGY FOLLOWUP NOTE LOCATION: Room 573. SUBJECTIVE: This is a 43-year-old male with recent acute exacerbation of chronic relapsing pancreatitis, presenting with diffuse upper abdominal pain and vomiting. for metabolic management . His glycemic levels are also fluctuating, but improved. His glucose levels overnight have ranged from 192 to 252 and 283 mg/dL. LABORATORY DATA: His chemistry showed a BUN of 6, sodium 134, potassium 4.4, chloride 102, CO2 of 27, glucose 269 and creatinine 3.6. ASSESSMENT AND PLAN: This is a 43-year-old male with chronic recurrent pancreatitis, presenting here with marked hypertriglyceridemia acute exacerbation of pancreatitis, acute abdominal pain, GI and is now improving clinically and metabolically as noted thereof. uncontrolled type 2 insulin requiring diabetes with marked hyperglycemic accelerations as expected thereof. PLAN OF MANAGEMENT: We will modify once again his basal and bolus insulin and increase the Levemir to 34 units subcutaneously at bedtime daily to start tonight. We will also titrate his prandial insulin with Humalog to be increased to 14 units subcutaneously three times a day before meals to start today as ordered. We will continue the low dose correction scale using Humalog insulin to obviate hypoglycemia and detailed orders have been given. We will obtain serial chemistries accordingly and supplement as indicated. We will follow and advise accordingly. Gaby Saavedra MD
== END 2019-01-28 18:09 | disposition home or self-care (01) | DRG 557 ==
LOC: ED 11:50 → ERH 15:06 → 5RSO 17:46
PROVIDERS: ADMIT Internal Medicine; ATTEND Hospitalist
DX: K85.90 Acute pancreatitis without necrosis or infection, unspecified (principal); K86.3 Pseudocyst of pancreas; I82.890 Acute embolism and thrombosis of other specified veins; K74.60 Unspecified cirrhosis of liver; E11.65 Type 2 diabetes mellitus with hyperglycemia; E78.1 Pure hyperglyceridemia; Z86.19 Personal history of other infectious and parasitic diseases; I10 Essential (primary) hypertension; I86.4 Gastric varices; K76.6 Portal hypertension; R00.1 Bradycardia, unspecified; K59.00 Constipation, unspecified; K86.1 Other chronic pancreatitis; R30.9 Painful micturition, unspecified; I45.10 Unspecified right bundle-branch block; Z79.4 Long term (current) use of insulin; Z87.891 Personal history of nicotine dependence; Z90.49 Acquired absence of other specified parts of digestive tract